=== PATIENT | female | born 1960 | race Caucasian/White ===

== ENCOUNTER → 2023-04-10 11:57 | Outpatient (REF) | payer OTHER, SELFPAY | LOC: RCS 11:57 | PROVIDERS: ATTENDING PHYSICIAN Family Medicine | DX: Z13.6 Encounter for screening for cardiovascular disorders (principal) | CPT/HCPCS: 93005 ==

== ENCOUNTER 2023-04-12 22:51 | Inpatient (IN) | payer OTHER, SELFPAY ==
[2023-04-12 17:58] VITALS: BP 137/64
[2023-04-12 17:59] LABS: Glucose - Point of Care 194 mg/dl (70-99)
[2023-04-12 18:25] LABS: COVID-19 Antigen Negative (Negative)
[2023-04-12 19:00] VITALS: BP 155/87
[2023-04-12] MEDS: DUONEB 3 ML INH (20:04)
[2023-04-12 20:24] LABS: % Basophils 0.8 % (0-2); % Immature Granulocytes 2.2 % (0-0.5); % Lymphocytes 27.9 % (20.5-51.1); % Monocytes 7.9 % (1.7-9.3); % Neutrophils 33.2 % (42.2-75.2); Absolute Basophils 0.1 10^3/uL (0-0.2); Absolute Eosinophils 2.5 10^3/uL (0-0.7); Absolute Immature Granulocytes 0.2 10^3/uL (0-0.05); Absolute Lymphocytes 2.5 10^3/uL (1.2-3.4); Absolute Monocytes 0.7 10^3/uL (0.1-0.6); Hemoglobin 11.8 g/dL (12.0-16.0); Mean Corp Hgb Conc. 34.7 g/dL (33.0-37.0); Mean Corpuscular Hgb 38.8 pg (27.0-31.0); Mean Corpuscular Volume 111.8 fL (81.0-99.0); Nucleated Red Blood Cells % 0 %; Platelet Count 214 10^3/uL (130-400); Red Blood Cell Count 3.04 10^6/uL (4.20-5.40); Red Cell Dist. Width 13.4 % (11.5-14.5); White Blood Cell Count 8.9 10^3/uL (4.8-10.8)
[2023-04-12 20:36] LABS: Lactic Acid 1.4 mmol/L (0.7-2.0)
[2023-04-12 20:37] LABS: ALT (SGPT) 26 U/L (0-35); AST (SGOT) 29 U/L (14-36); Albumin 3.5 g/dl (3.5-5.0); Alkaline Phosphatase 65 U/L (38-126); Blood Urea Nitrogen 39 mg/dl (7-17); Calcium 9.5 mg/dl (8.4-10.2); Chloride 89 mmol/L (98-107); Glucose 177 mg/dl (70-99); Sodium 138 mmol/L (135-145); Total Bilirubin 0.4 mg/dl (0.2-1.3); Total Protein 6.1 g/dl (6.3-8.2); eGFR > 60.00
[2023-04-12 20:46] LABS: Carbon Dioxide 37 mmol/L (22-30)
[2023-04-12 20:47] LABS: NT-proBNP 288 pg/ml; Troponin I < 0.012 ng/ml
[2023-04-12 21:05] VITALS: BP 156/64
[2023-04-12 21:07] LABS: TSH Reflex To Free T4 2.24 uIU/ml (0.47-4.68)
[2023-04-12 21:32] VITALS: BMI 31.9
--- NOTE | 2023-04-12 21:33 | ED.GENMED ---
History of Present Illness
General
Chief Complaint: Cold/Flu/URI Symptoms
Source: patient and records
Exam Limitations: other (Baseline mental health)
Time Seen by Provider: 04/12/23 19:20
Nursing documentation reviewed up to this point in time: agreed with
Travel History
Have you had any contact with someone who has COVID-19?: No
Do you have any symptoms of coronavirus? Fever > 100 degrees, chills, cough, shortness of breath, sore throat, loss of taste or smell, muscle aches, or headache?: No
History of Present Illness
History of Present Illness:
Patient is a 63-year-old female presents to the emergency department complaining of cough, fever and shortness of breath for approximately the last week. Patient denies any GI or symptoms. Patient has noted exertional dyspnea along with dyspnea
at rest. Patient denies any orthopnea. Patient denies any leg pain or swelling. Patient wears O2 chronically but was noted to be short of breath with her normal 2 L of oxygen running at about 90%.
Past History
Past History
ED Past Medical History: Asthma, COPD, HTN, Hypercholesterolemia, IDDM, Hypothyroidism, Psychiatric (Schizoaffective disorder, borderline personality disorder, major depressive disorder, suicide attempt) and Other (SBO,)
ED Past Surgical History: Appendectomy and Cholecystectomy
Social History
Tobacco: Non-smoker
Alcohol: None
Drug: None
Personal: Single
Living: other (snf)
Employment: Not employed
Family History
Family History: Unable to obtain
Review of Systems
Review of Systems
All Other Systems: ROS reviewed and negative except as documented in HPI and ROS
Constitutional: Reports fever, fatigue and chills
EENT: Reports no symptoms
Respiratory: Reports cough and trouble breathing
Cardiac: Reports no symptoms
ABD/GI: Reports no symptoms
: Reports no symptoms
Musculoskeletal: Reports no symptoms
Skin: Reports no symptoms
Neurological: Reports no symptoms
Hematologic/Lymphatic: Reports no symptoms
Phy Exam
Physical Exam
Physical Exam:
Physical Exam
General: mild distress, alert and appropriate, well nourished, well hydrated, poor personal hygiene and disheveled
HENT: Normocephalic, supple with no lymphadenopathy, no thyromegaly
Eyes: Clear sclera, conjuctiva without injection
Heart: Regular rhythm and rate. No S3, S4. No murmur. No NVD
Lungs: mild respiratory distress, no stridor, lung sounds are clear on the left but rhonchi in the right base both anteriorly and posteriorly
Abdomen: Soft, nontender, no organomegaly, no CVA tenderness, BS good
Neuro: Alert and oriented x 3, CN II - XII intact, no motor focality, no cerebellar dysfunction
Skin: no rash
Psychiatric: well kept. interactive and cooperative
Extremities: No cyanosis, tenderness. Trace pretibial nonpitting edema bilaterally
Course
Orders/Labs/Results
Orders:
Orders
04/12/23 18:03
COVID-19 Antigen Urgent
Source: Nasal Swab
INF RAPID [Influenza A+B Rapid Molecular] Urgent
BERNA[place] Source: Nasal Swab
Specimen Description:
04/12/23 19:32
Electrocardiogram (*1) Urgent
Reason for Study: Shortness of Breath
EKG- Treatment ONCE
Ipratropium/Albuterol Sulfate [Duoneb] 3 ml INH R NOW ONE
CR Chest - 2 Views Urgent
Comment:
Reason For Exam: fever sob
04/12/23 20:03
Complete Blood Count/With Diff Urgent
Comprehensive Metabolic Panel Urgent
Lactic Acid Q4H
Comment: CANCEL 2nd LACTIC ACID IF 1st LACTIC ACID IS LESS THAN 2
NT-proBNP Urgent
TSH Reflex To Free T4 Urgent
Troponin I Urgent
Blood Culture Q30M
BER[place] Source: Blood/Venous
Specimen Description:
Blood Culture Q30M
[place] Source: Blood/Venous
Specimen Description:
04/12/23 21:32
LevoFLOXacin 750 mg IVPB NOW LevoFLOXacin 750 MG/150 ML [Levaquin] 750 mg in 150 ml IV NOW
04/12/23 23:45
Lactic Acid Q4H
Comment: CANCEL 2nd LACTIC ACID IF 1st LACTIC ACID IS LESS THAN 2
Abnormal Lab Results
04/12/23 04/12/23
17:57 20:03
RBC 3.04 L 10^6/uL
(4.20-5.40)
Hgb 11.8 L g/dL
(12.0-16.0)
Hct 34.0 L %
(37.0-47.0)
MCV 111.8 H fL
(81.0-99.0)
MCH 38.8 H pg
(27.0-31.0)
Abs Immat Gran (auto) 0.2 H 10^3/uL
(0-0.05)
Absolute Monos (auto) 0.7 H 10^3/uL
(0.1-0.6)
Absolute Eos (auto) 2.5 H 10^3/uL
(0-0.7)
Immature Gran % 2.2 H %
(0-0.5)
Neutrophils % 33.2 L %
(42.2-75.2)
Eosinophils % 28.0 H %
(0-6)
Chloride 89 L mmol/L
(98-107)
Carbon Dioxide 37 H mmol/L
(22-30)
BUN 39 H mg/dl
(7-17)
Glucose 177 H mg/dl
(70-99)
Total Protein 6.1 L g/dl
(6.3-8.2)
POC Glucose 194 H mg/dl
(70-99)
04/12/23 20:03
04/12/23 20:03
Vital Signs
Initial and Last Documented VS:
Initial Vital Signs
Temp Pulse Resp BP Pulse Ox
98.4 F 99 20 137/64 95
04/12/23 17:58 04/12/23 17:58 04/12/23 17:58 04/12/23 17:58 04/12/23 17:58
Last Documented Vital Signs
Temp Pulse Resp BP Pulse Ox
98.4 F 98 20 156/64 93
04/12/23 17:58 04/12/23 19:15 04/12/23 17:58 04/12/23 21:05 04/12/23 21:30
*Radiology
Radiology exam reviewed: radiology read reviewed (Right-sided pneumonia)
*Pulse Oximetry
Patient hypoxic: yes
*EKG
Interpreted by ED Provider?: Yes
EKG Intrepretation Date: 04/12/23
EKG Intrepretation Time: 21:37
Interpretation: abnormal
Comparison EKG: no changes
Heart Rate: 96
Rate: normal
Rhythm: sinus
[place]: normal axis
Interval: normal interval
QRS Pattern: normal QRS
Ischemia: non-specific ST changes
*Institutional Commodity Analyst Interpretation
Rate: normal
Interpretation: normal
Heart Rate: 96
Rhythm: sinus
*Critical Care Note
Total Time (30-74mins, 75-104mins- exclusive of procedures): Not Applicable
Update Note
Update Note:
Patient appears to have pneumonia which is consistent with her clinical picture. Given the patient is O2 dependent and her oxygen dropped while on oxygen will admit the patient started on intravenous antibiotics.
ED Attending Note
-
Portions of this chart may have been created with voice recognition software.� Occasional wrong word or��sound alike� substitutions may have occurred due to the inherent limitations of voice recognition software.
Discharge Plan
Departure
Patient Disposition: Admit
Date of Disposition: 04/12/23
Time of Disposition: 21:38
Admit to: Telemetry
Admit to doctor: Hospitalist
Presentation/result/management discussed w/ accepting MD/DO: Hospitalist
Patient with high blood pressure during this ER visit?: No
Condition: Fair
Covid-19: Not Applicable
Discharge Problem:
Pneumonia
Prescriptions:
No Action
albuterol sulfate 2.5 MG/3 ML solution for nebulization
2.5 mg inhalation R Q6HPRN PRN (Reason: wheezing)
levothyroxine 75 MCG tablet
75 mcg PO DAILY
famotidine 20 MG tablet
20 mg PO BID
metformin 1,000 MG tablet
1,000 mg PO BID
allopurinol 300 MG tablet
300 mg PO DAILY
cholecalciferol (vitamin D3) 1,000 UNITS tablet
1,000 units PO DAILY
docusate sodium 100 MG capsule
100 mg PO BID 0RF
trazodone 100 MG tablet
100 mg PO HS
ondansetron HCl 4 MG tablet
4 mg PO Q8H PRN (Reason: nausea)
albuterol sulfate [Ventolin HFA] 90 MCG/PUFF HFA aerosol inhaler
1 puff inhalation R Q6HPRN PRN (Reason: sob)
acetaminophen 325 MG tablet
650 mg PO Q6H PRN (Reason: mild pain)
olanzapine [Zyprexa] 10 mg Tablet
10 mg PO DAILY
melatonin 3 mg Tablet
6 mg PO HS
valproic acid 250 mg Capsule
500 mg PO DAILY
pravastatin 80 mg Tablet
80 mg PO DAILY
epinephrine 0.3 mg/0.3 mL Auto-Injector
0.3 mg IM ONCE PRN (Reason: anaphylaxsis)
fluticasone propion-salmeterol [Advair Diskus] 100-50 mcg/dose Blister With Device
1 inh INHALATION R BID
Apidra SoloStar U-100 Insulin 100 unit/mL Insulin Pen
0 sliding scale dose SC QID PRN (Reason: blood sugar)
Patient Comments:
02/06/2022: bs 150-200=2; 200-250=4; 250-300=6; 300-350=8; bs 350 and over call nbfp
Farxiga 10 mg Tablet
10 mg PO DAILY
glucagon HCl [Glucagon (HCl) Emergency Kit] 1 mg Recon Soln
1 mg SC DAILYPRN PRN (Reason: hypoglycemia)
bisacodyl [OneLAX Bisacodyl] 10 MG suppository
10 mg [place] DAILY PRN (Reason: constipation)
lorazepam 1 MG tablet
1 mg PO Q6H PRN (Reason: anxiety)
polyethylene glycol 3350 [Miralax] 17 gram powder in packet
17 g PO BID 5 Days Qty: 1 0RF
clonazepam 1 mg Tablet
1.5 mg PO HS
valproic acid 250 mg Capsule
750 mg PO BID@1200,2000
fluoxetine [Prozac] 10 mg Capsule
30 mg PO DAILY
furosemide 40 MG tablet
40 mg PO DAILY
multivitamin with iron [One A Day W/Iron] Tablet
1 tab PO DAILY
furosemide [Lasix] 20 mg tablet
20 mg PO DAILY Qty: 7 0RF
Referrals:
Shimon Cleary DO [Family Provider] -
Interventions
Interventions:
ED- Fall Risk Assessment Last Done: 04/12/23 21:28
ED- Pulmonary Assessment Last Done: 04/12/23 21:28
[2023-04-12] MEDS: LEVAQUIN 150 IV (21:57)
[2023-04-12 22:00] VITALS: BP 144/71
--- NOTE | 2023-04-12 22:02 | HPS.HSE ---
Family Physician
-
Family Physician: Shimon Cleary
Chief Complaint
-
cough, fever and chills
History of Present Illness
63M HX home O2 depedent COPD pw cough, fever and chills for approximately the last week.
Reports Moss and dyspnea at rest. No orthopnea.
Patient denies any leg pain or swelling.
Medical History
Past Medical History
Past Medical History: Reports Other
Additional Past Medical History:
Asthma, COPD, HTN, Hypercholesterolemia, IDDM, Hypothyroidism, Psychiatric (Schizoaffective disorder, borderline personality disorder, major depressive disorder, suicide attempt) and Other (SBO,)
Past Surgical History: Reports Appendectomy and Cholecystectomy
Social History
Tobacco: Non-smoker
Alcohol: None
Personal: Single
Living: Other (prison )
Family History
Family History: Not pertinent
Allergies / Home Medications
Allergies reflects when Allergies were last updated in [employer].
Home Medications with original date entered in [employer]
Allergy/Medication List:
Allergies
Allergy/AdvReac Type Severity Reaction Status Date / Time
bee venom protein (honey bee) Allergy Unknown Verified 04/12/23 17:57
benzonatate Allergy Rash Verified 04/12/23 17:57
[From Tessalon Perles]
codeine Allergy Unknown Verified 04/12/23 17:57
egg Allergy Unknown Verified 04/12/23 17:57
fluphenazine [From Prolixin] Allergy Unknown Verified 04/12/23 17:57
haloperidol [From Haldol] Allergy Unknown Verified 04/12/23 17:57
hydroxychloroquine Allergy Unknown Verified 04/12/23 17:57
[From Plaquenil]
Influenza Virus Vaccines Allergy Unknown Verified 04/12/23 17:57
iodine Allergy Unknown Verified 04/12/23 17:57
Penicillins Allergy unknown; Verified 04/12/23 17:57
tolerated
cephalexin
June 2020
shellfish derived Allergy Unknown Verified 04/12/23 17:57
Sulfa (Sulfonamide Allergy Unknown Verified 04/12/23 17:57
Antibiotics)
tomato Allergy Unknown Verified 04/12/23 17:57
Home Medications
albuterol sulfate 2.5 mg/3 mL (0.083 %) solution for nebulization 2.5 mg inhalation R Q6HPRN PRN wheezing 06/08/20
allopurinol 300 mg tablet 300 mg PO DAILY Gout 06/08/20
cholecalciferol (vitamin D3) 25 mcg (1,000 unit) tablet 1,000 units PO DAILY Supplement 06/08/20
famotidine 20 mg tablet 20 mg PO BID Gastrointestinal issue 06/08/20
levothyroxine 75 mcg tablet 75 mcg PO DAILY Thyroid 06/08/20
metformin 1,000 mg tablet 1,000 mg PO BID Diabetes 06/08/20
docusate sodium 100 mg capsule 100 mg PO BID 06/15/20
trazodone 100 mg tablet 100 mg PO HS Sleep 01/19/21
ondansetron HCl 4 mg tablet 4 mg PO Q8H PRN nausea 05/04/21
acetaminophen 325 mg tablet 650 mg PO Q6H PRN mild pain 05/28/21
albuterol sulfate 90 mcg/actuation aerosol inhaler (Ventolin HFA) 1 puff inhalation R Q6HPRN PRN sob 05/28/21
bisacodyl 10 mg rectal suppository (OneLAX Bisacodyl) 10 mg [place] DAILY PRN constipation 09/13/21
dapagliflozin propanediol 10 mg tablet (Farxiga) 10 mg PO DAILY Diabetes 09/13/21
epinephrine 0.3 mg/0.3 mL injection, auto-injector 0.3 mg IM ONCE PRN anaphylaxsis 09/13/21
fluticasone 100 mcg-salmeterol 50 mcg/dose blistr powdr for inhalation (Advair Diskus) 1 inh inhalation R BID Lung/breathing issues 09/13/21
glucagon HCl 1 mg solution for injection (Glucagon (HCl) Emergency Kit) 1 mg SC DAILYPRN PRN hypoglycemia 09/13/21
insulin glulisine U-100 100 unit/mL subcutaneous pen (Apidra SoloStar U-100 Insulin) 0 sliding scale dose SC QID PRN blood sugar 09/13/21
lorazepam 1 mg tablet 1 mg PO Q6H PRN anxiety 09/13/21
melatonin 3 mg tablet 6 mg PO HS Sleep 09/13/21
olanzapine 10 mg tablet (Zyprexa) 10 mg PO DAILY Mental Health/Anxiety 09/13/21
pravastatin 80 mg tablet 80 mg PO DAILY High cholesterol 09/13/21
valproic acid 250 mg capsule 500 mg PO DAILY Mental Health/Anxiety 09/13/21
polyethylene glycol 3350 17 gram oral powder packet (Miralax) 17 g PO BID 5 days #1 ea 10/05/21
clonazepam 1 mg tablet 1.5 mg PO HS Mental Health/Anxiety 12/15/21
fluoxetine 10 mg capsule (Prozac) 30 mg PO DAILY Depression 02/07/22
valproic acid 250 mg capsule 750 mg PO BID@1200,2000 Seizures 02/07/22
furosemide 40 mg tablet 40 mg PO DAILY Fluid retention/Swelling 02/08/22
furosemide 20 mg tablet (Lasix) 20 mg PO DAILY #7 tabs 07/08/22
multivitamin with iron 1 tab PO DAILY 07/08/22
Review of Systems
-
Constitutional: Reports No Symptoms
EENT: Reports No Symptoms
Respiratory: Reports See HPI
Cardiac: Reports No Symptoms
Abdomen/GI: Reports No Symptoms
: Reports No Symptoms
Musculoskeletal: Reports No Symptoms
Skin: Reports No Symptoms
Neurological: Reports No Symptoms
Endocrine: Reports No Symptoms
Hematologic/Lymphatic: Reports No Symptoms
Psych: Reports No Symptoms
Physical Exam
Vital Signs
Vital Signs
Temp Pulse Resp BP Pulse Ox
98.4 F 98 20 156/64 93
04/12/23 17:58 04/12/23 19:15 04/12/23 17:58 04/12/23 21:05 04/12/23 21:30
Physical Exam
General: Other (see below )
Laboratory Results
-
04/12/23 20:03
04/12/23 20:03
Laboratory Results
Lactic Acid 1.4 mmol/L (0.7-2.0) 04/12/23 20:03
Total Bilirubin 0.4 mg/dl (0.2-1.3) 04/12/23 20:03
AST 29 U/L (14-36) 04/12/23 20:03
ALT 26 U/L (0-35) 04/12/23 20:03
Alkaline Phosphatase 65 U/L (38-126) 04/12/23 20:03
Troponin I < 0.012 ng/ml 04/12/23 20:03
Data Reviewed
-
Diagnostic Radiology: Report Reviewed by me
Lab Data: Labs Reviewed by me
Old Records: Reviewed
Impression/Plan
-
Reviewed VS: Afebrile POx mid 90s on 2 L O2 RR 20 otherwise unremarkable
PE
Gen: mild distress, disheveled, not toxic looking
HEENT: anicteric
Neck: supple
Lungs: mild respiratory distress, clear on the left but rhonchi in the right base both anteriorly and posteriorly
Cor: RRR S1 S2
Abdomen: benign exam
REGULATOR TESTER: AAO3 NFND
MS: b/l trace ext edema
Psych: interactive and cooperative
Data
nl WCC
Hgb 11.8 -stable at base line 11.8
nl Na
nl K
Cl 89
CO2 37 - baseline 36s
nl Cr nl GFR
BG 177
NEG TPNI
pBNP 288
EKG report
QTc Int : 459 ms
NORMAL SINUS RHYTHM
NONSPECIFIC ST ABNORMALITY
ABNORMAL QRS-T ANGLE, CONSIDER PRIMARY T WAVE ABNORMALITY
ABNORMAL ECG
WHEN COMPARED WITH ECG OF 10-APR-2023 12:13,
NO SIGNIFICANT CHANGE WAS FOUND
TSH 2.25
NEG Covid ag
Pending procalcitonin
LA 1.2
BC x sent
04/12/23 CXR : Mild right basilar atelectasis and/or pneumonia.
Last hospitalist admission : 02/06/22 - 02/13/22
DISCHARGE DIAGNOSIS:
1. Pneumonia.
2. Acute on chronic bronchitis.
3. Chronic obstructive pulmonary disease.
4. Schizoaffective disorder.
5. Diabetes.
6. Hypothyroidism.
7. Chronic constipation.
8. Gout.
9. Pulmonary hypertension.
10.Hyperlipidemia.
ASSESSMENT & PLAN
Pending Rx reconciliation
HX developmental delay
Gp Home resident
PNA at Rt basilar - presumed CAP
Acute on chronic Hypoxic RI
HX Home O2 dependent COPD
Suspect chr CO2 retainer - chr hypercarbia noted
HX PCN allergy
- check procalcitonin
- Agree with IV LVQ - close monitoring of QTc in AM ( Current QTc 459)
- cont. CIRCULATION LIBRARIAN INH
- ABG with any AMS due to HX chronic CO2 retention
- BCx sent
- f/u T, WCC
HX CIELO
Obesity secondary to excess calories
Schizoaffective disorder
- cont. fluoxetine, olanzapine, Depakote after reconciliation
- cont clonazepam, Ativan, trazodone after reconciliation but hold for excessive sedation
Essential hypertension
- on Lasix
T2DM
- cont Farxiga after reconciliation
- Held metformin
- ISS low
Hypothyroidism
- cont levothyroxine after reconciliation
Chronic constipation
-cont e stool softeners
Gout
- cont allopurinol after reconciliation
Hypercholesterolemia
-Continue statin after reconciliation
DVT Px: LMWH
Code: Full
IMU
[2023-04-12 23:00] VITALS: BP 148/80
[2023-04-13] VITALS (15 sets, daily range): BP systolic 119–174; BP diastolic 68–91; PULSE 94; O2SAT 94; BMI 40.3; BMI 39.5; BMI 40.5
--- NOTE | 2023-04-13 | PTCARENOTE ---
Pt admitted to IMU from ED. AAO3. Speech garbled d/t not having dentures with her. Developmentally delayed. Able to answer questions appropriately. Denies pain or discomfort. VSS: 149/84, 98.1, 86, 15 POX 94% on 3L NC. SR/PVCs on CM. Lung sounds
very diminished, EW noted. MORALES, occasional moist senior label specialist cough. Pt came to floor with her own O2 tank brought in by person from correction for when pt is discharged. Pt incontinent large amount urine, strong odor. Purewick placed. Rest of assessment as
documented. Oriented to room and surroundings. Call azevedo within reach and using. Bed alarm on and working. Will continue to monitor.
[2023-04-13 05:57] LABS: Hematocrit 32.8 % (37.0-47.0); Hemoglobin 11.3 g/dL (12.0-16.0); Mean Corp Hgb Conc. 34.5 g/dL (33.0-37.0); Mean Corpuscular Hgb 38.2 pg (27.0-31.0); Mean Corpuscular Volume 110.8 fL (81.0-99.0); Mean Platelet Volume 9.4 fL (7.4-10.4); Platelet Count 204 10^3/uL (130-400); Red Blood Cell Count 2.96 10^6/uL (4.20-5.40); Red Cell Dist. Width 13.5 % (11.5-14.5); White Blood Cell Count 9.2 10^3/uL (4.8-10.8)
[2023-04-13 06:11] LABS: ALT (SGPT) 23 U/L (0-35); AST (SGOT) 29 U/L (14-36); Albumin 3.2 g/dl (3.5-5.0); Alkaline Phosphatase 56 U/L (38-126); Blood Urea Nitrogen 35 mg/dl (7-17); Calcium 9.2 mg/dl (8.4-10.2); Chloride 95 mmol/L (98-107); Estimated Creatinine Clearance 71 ml/min; Glucose 120 mg/dl (70-99); Potassium 4.2 mmol/L (3.5-5.1); Sodium 140 mmol/L (135-145); Total Bilirubin 0.5 mg/dl (0.2-1.3); Total Protein 5.6 g/dl (6.3-8.2); eGFR > 60.00
[2023-04-13 06:20] LABS: Carbon Dioxide 38 mmol/L (22-30)
[2023-04-13 06:27] LABS: Procalcitonin < 0.05 ng/ml (0.0-0.25)
[2023-04-13] MEDS: DUONEB 3 ML INH ×4 (07:41→19:15)
[2023-04-13] MEDS: SYNTHROID 75 MCG PO (09:19)
[2023-04-13] MEDS: ZETIA 10 MG PO (10:23)
[2023-04-13] MEDS: LANTUS 0.179999999999999993 UNITS SC (10:23)
[2023-04-13] MEDS: LASIX 40 MG PO (10:23)
[2023-04-13] MEDS: VALTREX 500 MG PO ×2 (10:23→19:50)
[2023-04-13] MEDS: PROZAC 20 MG PO (10:24)
[2023-04-13] MEDS: ZYPREXA 10 MG PO (10:24)
[2023-04-13] MEDS: PRAVACHOL 80 MG PO (10:24)
[2023-04-13] MEDS: FARXIGA 10 MG PO (10:25)
[2023-04-13 12:14] LABS: Glucose - Point of Care 218 mg/dl (70-99)
[2023-04-13] MEDS: NOVOLOG FLEXPEN-LOW RESISTANCE 2 UNITS SC ×2 (12:38→17:14)
[2023-04-13] MEDS: DEPAKENE 750 MG PO ×2 (12:39→19:50)
--- NOTE | 2023-04-13 13:26 | W.PN.HOSP.TC ---
Today's Communication/Plan
-
abx
f/u cultures
wean o2
speech eval
incentive sandra
Assessment / Plan
Assessment / Plan
Gen: mild distress, disheveled, not toxic looking
HEENT: anicteric
Neck: supple
Lungs: mild respiratory distress, clear on the left but rhonchi in the right base both anteriorly and posteriorly
Cor: RRR S1 S2
Abdomen: benign exam
SOCK DRIER: AAO3 NFND
MS: b/l trace ext edema
Psych: interactive and cooperative
HX developmental delay
Gp Home resident
#Sepsis
#PNA at Rt basilar - presumed CAP
#Acute on chronic Hypoxic respiratory failure
#HX Home O2 dependent� (2L)
#COPD
- Cont iv abx
-Duonebs
-wean o2
-F/u Blood cultures
HX CIELO
Obesity secondary to excess calories
Schizoaffective disorder
- cont.� fluoxetine, olanzapine, Depakote� after� reconciliation
- cont� clonazepam, Ativan, trazodone� after� reconciliation but hold for excessive sedation
Essential hypertension
- on Lasix
T2DM
- cont Farxiga after� reconciliation
- Held� metformin
- ISS low
Hypothyroidism
- cont� levothyroxine after� reconciliation
Chronic constipation
-cont e stool softeners
Gout
- cont allopurinol after� reconciliation
Hypercholesterolemia
-Continue statin after� reconciliation
DVT Px: LMWH
Anticipated Discharge: > 48 hours
Subjective/Interval History
-
Date of Service: April 13, 2023
no acute events overnight
Objective Data
-
Labs:
Laboratory Results
04/13/23
05:00
WBC 9.2
Hgb 11.3 L
Hct 32.8 L
Plt Count 204
Sodium 140
Potassium 4.2
Chloride 95 L
Carbon Dioxide 38 H
BUN 35 H
Creatinine 0.8
Glucose 120 H
Calcium 9.2
Total Bilirubin 0.5
AST 29
ALT 23
Alkaline Phosphatase 56
Vital Signs:
Vital Signs
Temp Pulse Resp BP Pulse Ox
98.3 F 92 14 138/78 94
04/13/23 07:38 04/13/23 11:13 04/13/23 11:13 04/13/23 10:00 04/13/23 12:37
I&O
04/12/23 04/13/23 04/14/23
06:59 06:59 06:59
Intake Total 1300 / 1300
Output Total 200 / 200 1300 / 1300
Balance -200 / -200 0 / 0
Review of Systems
-
History Source: Patient
All other systems: Not reviewed unless documented
Physical Exam
-
General: Obese
HEENT: Normocephalic
Respiratory: Wheezes and Rhonchi
Cardiac: Regular Rhythm
GI: Soft
Musculoskeletal: Edema, Right Lower Extrem and Edema, Left Lower Extrem
Neuro: Awake
Psych: Anxious
Data Reviewed
-
Diagnostic Radiology: Image personally visualized and interpreted and Report Reviewed by me
Labs: Labs Reviewed by me
--- NOTE | 2023-04-13 14:14 | CM ---
Pt resides at [facility] a 16 resident [facility]
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
Pt has no previous SNF/VN hx however does have a w/c & home O2
Pt does have prescription coverage and rx's are filled through [facility] [phone].
Oxygen at home through [facility].
WHIT spoke to weekend staff at [facility]. Staff suggested CM to call Saturday to give update to Mirian Tavarez [employer]er and she will put Whit in touch with nurse for the [place].
PlAN: return to [facility].
--- NOTE | 2023-04-13 15:06 | PTCARENOTE ---
pt with unprovoked drop in pox to 83-84% on O2 2L after lunch. improved to 88% with deep breaths encouraged. increased oxygen to 4L nasal canula. pox improved to 93%. patient later assisted to chair with min assist x 2. pox maintained at 94%.
continuing to monitor
[2023-04-13 16:42] LABS: Glucose - Point of Care 200 mg/dl (70-99)
[2023-04-13] MEDS: LOVENOX 40 MG SC (17:29)
[2023-04-13] MEDS: LEVAQUIN 150 IV (21:25)
[2023-04-13] MEDS: FLUSH (NSS) 2 FLUSH IV (21:25)
[2023-04-13] MEDS: KLONOPIN 1.5 MG PO (21:25)
[2023-04-13 21:44] LABS: Glucose - Point of Care 197 mg/dl (70-99)
--- NOTE | 2023-04-13 21:55 | PTCARENOTE ---
Pt received at beginning of shift reclining in chair. AAOx3 slightly forgetful . VSS. Afebrile. SR/PVCs on CM. Continues on 4L NC POX 93%. Occasional moist carbide die maker cough. Very diminished B/L. Purewick draining clear yellow urine in canister. Hair
shampooed. Pt denies pain or discomfort. Rest of assessment as documented. Maintained on Q2hr turns. Call azevedo remains within reach. Will continue to monitor.
[2023-04-14] VITALS (11 sets, daily range): BP systolic 128–162; BP diastolic 72–83; BMI 39.5
[2023-04-14 06:35] LABS: Hematocrit 35.5 % (37.0-47.0); Hemoglobin 12.7 g/dL (12.0-16.0); Mean Corp Hgb Conc. 35.8 g/dL (33.0-37.0); Mean Corpuscular Hgb 40.1 pg (27.0-31.0); Mean Platelet Volume 9.4 fL (7.4-10.4); Platelet Count 227 10^3/uL (130-400); Red Blood Cell Count 3.17 10^6/uL (4.20-5.40); Red Cell Dist. Width 13.3 % (11.5-14.5); White Blood Cell Count 8.4 10^3/uL (4.8-10.8)
[2023-04-14 06:50] LABS: ALT (SGPT) 22 U/L (0-35); AST (SGOT) 24 U/L (14-36); Albumin 3.4 g/dl (3.5-5.0); Alkaline Phosphatase 60 U/L (38-126); Blood Urea Nitrogen 38 mg/dl (7-17); Calcium 9.6 mg/dl (8.4-10.2); Carbon Dioxide 38 mmol/L (22-30); Chloride 95 mmol/L (98-107); Estimated Creatinine Clearance 62 ml/min; Glucose 162 mg/dl (70-99); Magnesium 2.2 mg/dl (1.6-2.3); Phosphorus 5.1 mg/dl (2.5-4.5); Potassium 4.2 mmol/L (3.5-5.1); Sodium 139 mmol/L (135-145); Total Bilirubin 0.6 mg/dl (0.2-1.3); eGFR > 60.00
[2023-04-14] MEDS: DUONEB 3 ML INH ×4 (07:30→20:36)
[2023-04-14 07:41] LABS: Glucose - Point of Care 160 mg/dl (70-99)
[2023-04-14] MEDS: SYNTHROID 75 MCG PO (08:46)
[2023-04-14] MEDS: FARXIGA 10 MG PO (08:46)
[2023-04-14] MEDS: ZETIA 10 MG PO (08:46)
[2023-04-14] MEDS: VALTREX 500 MG PO ×2 (08:47→21:05)
[2023-04-14] MEDS: ZYPREXA 10 MG PO (08:47)
[2023-04-14] MEDS: PRAVACHOL 80 MG PO (08:47)
[2023-04-14] MEDS: PROZAC 20 MG PO (08:47)
[2023-04-14] MEDS: LASIX 40 MG PO (08:48)
[2023-04-14] MEDS: NOVOLOG FLEXPEN-LOW RESISTANCE 1 UNITS SC ×2 (08:48→17:06)
[2023-04-14] MEDS: LANTUS 0.179999999999999993 UNITS SC (08:51)
--- NOTE | 2023-04-14 10:40 | PTCARENOTE ---
Pt had a burst of ST with HR going to 140s. was in room during event and aware.
[2023-04-14 11:34] LABS: Glucose - Point of Care 244 mg/dl (70-99)
[2023-04-14] MEDS: NOVOLOG FLEXPEN-LOW RESISTANCE 2 UNITS SC (12:52)
[2023-04-14] MEDS: DEPAKENE 750 MG PO ×2 (12:52→21:06)
--- NOTE | 2023-04-14 14:24 | W.PN.HOSP.TC ---
Today's Communication/Plan
-
cont abx
wean o2
duonebs
Assessment / Plan
Assessment / Plan
Gen: mild distress, disheveled, not toxic looking
HEENT: anicteric
Neck: supple
Lungs: mild respiratory distress, clear on the left but rhonchi in the right base both anteriorly and posteriorly
Cor: RRR S1 S2
Abdomen: benign exam
INSURANCE COMPLIANCE ANALYST: AAO3 NFND
MS: b/l trace ext edema
Psych: interactive and cooperative
HX developmental delay
Gp Home resident
#Sepsis
#PNA at Rt basilar - presumed CAP
#Acute on chronic Hypoxic respiratory failure
#HX Home O2 dependent� (2L)
#COPD
- Cont iv abx
-Duonebs
-wean o2
-F/u Blood cultures
-speech eval
#Ear pain
-can consult ENT Tomorrow AM
-no obvious discharge
HX CIELO
Obesity secondary to excess calories
Schizoaffective disorder
- cont.� fluoxetine, olanzapine, Depakote� after� reconciliation
- cont� clonazepam, Ativan, trazodone� after� reconciliation but hold for excessive sedation
Essential hypertension
- on Lasix
T2DM
- cont Farxiga after� reconciliation
- Held� metformin
- ISS low
Hypothyroidism
- cont� levothyroxine after� reconciliation
Chronic constipation
-cont e stool softeners
Gout
- cont allopurinol after� reconciliation
Hypercholesterolemia
-Continue statin after� reconciliation
DVT Px: LMWH
Anticipated Discharge: Within 24 hours
Subjective/Interval History
-
Date of Service: April 14, 2023
Weaned back to 2 L, still wheezing
Objective Data
-
Labs:
Laboratory Results
04/14/23
06:14
WBC 8.4
Hgb 12.7
Hct 35.5 L
Plt Count 227
Sodium 139
Potassium 4.2
Chloride 95 L
Carbon Dioxide 38 H
BUN 38 H
Creatinine 0.9
Glucose 162 H
Calcium 9.6
Total Bilirubin 0.6
AST 24
ALT 22
Alkaline Phosphatase 60
Vital Signs:
Vital Signs
Temp Pulse Resp BP Pulse Ox
98.6 F 92 18 161/78 93
04/14/23 11:11 04/14/23 11:24 04/14/23 11:24 04/14/23 10:22 04/14/23 11:24
I&O
04/13/23 04/14/23 04/15/23
06:59 06:59 06:59
Intake Total 1929 / 1929
Output Total 200 / 200 2425 / 2425
Balance -200 / -200 -495 / -495
Review of Systems
-
History Source: Patient
All other systems: Not reviewed unless documented
Physical Exam
-
General: Obese
HEENT: Normocephalic
Respiratory: Wheezes and Rhonchi
Cardiac: Regular Rhythm
GI: Soft
Musculoskeletal: Edema, Right Lower Extrem and Edema, Left Lower Extrem
Neuro: Awake
Psych: Anxious
Data Reviewed
-
Diagnostic Radiology: Image personally visualized and interpreted and Report Reviewed by me
Labs: Labs Reviewed by me
[2023-04-14 16:23] LABS: Glucose - Point of Care 188 mg/dl (70-99)
[2023-04-14] MEDS: LOVENOX 40 MG SC (18:02)
[2023-04-14] MEDS: KLONOPIN 1.5 MG PO (21:05)
[2023-04-14 22:07] LABS: Glucose - Point of Care 144 mg/dl (70-99)
[2023-04-14] MEDS: LEVAQUIN 150 IV (23:25)
[2023-04-15] VITALS (15 sets, daily range): BP systolic 103–175; BP diastolic 46–94; PULSE 80–108; O2SAT 93; BMI 38.8
--- NOTE | 2023-04-15 04:46 | PTCARENOTE ---
pt now requires 6 liters to maintain sat of 93%- no change in lung sounds- no distress-
[2023-04-15] MEDS: SYNTHROID 75 MCG PO (04:53)
[2023-04-15 05:45] LABS: Hemoglobin 12.3 g/dL (12.0-16.0); Mean Corp Hgb Conc. 33.2 g/dL (33.0-37.0); Mean Corpuscular Hgb 37.7 pg (27.0-31.0); Mean Corpuscular Volume 113.5 fL (81.0-99.0); Mean Platelet Volume 9.1 fL (7.4-10.4); Platelet Count 222 10^3/uL (130-400); Red Blood Cell Count 3.26 10^6/uL (4.20-5.40); Red Cell Dist. Width 13.2 % (11.5-14.5); White Blood Cell Count 8.8 10^3/uL (4.8-10.8)
[2023-04-15 06:11] LABS: Blood Urea Nitrogen 39 mg/dl (7-17); Calcium 8.9 mg/dl (8.4-10.2); Carbon Dioxide 38 mmol/L (22-30); Chloride 95 mmol/L (98-107); Estimated Creatinine Clearance 55 ml/min; Glucose 149 mg/dl (70-99); Potassium 3.9 mmol/L (3.5-5.1); Sodium 137 mmol/L (135-145); eGFR > 60.00
[2023-04-15] MEDS: DUONEB 3 ML INH ×4 (07:13→20:41)
[2023-04-15 08:08] LABS: Glucose - Point of Care 165 mg/dl (70-99)
--- NOTE | 2023-04-15 08:58 | W.PN.HOSP.TC ---
Today's Communication/Plan
-
see A/P
Assessment / Plan
Assessment / Plan
A/P:
# Sepsis POA due to R basilar CAP
# Acute on chronic Hypoxic respiratory failure
# HX Home O2 dependent� (2L)
# COPD
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
COVID/Flu negative, blood Cx neg
Check MRSA screen
Pt refused SPL eval , reattempt if able
Cont Levaquin
Duonebs
# BL inner Ear pain
no obvious discharge
consult ENT
# HX CIELO
# Obesity secondary to excess calories
# Schizoaffective disorder
# HX developmental delay, senior care resident
cont ELECTRICAL TECH/PROJECT MANAGER fluoxetine, olanzapine, Depakote�
cont ELECTRICAL TECH/PROJECT MANAGER clonazepam, Ativan, trazodone�with holding parameter (for excessive sedation)
# Essential hypertension
on Lasix
# T2DM
ELECTRICAL TECH/PROJECT MANAGER on Farxiga
Hold metformin
ISS low
# Hypothyroidism
cont�levothyroxine
# Chronic constipation
cont stool softeners
# Gout
cont allopurinol
# Hypercholesterolemia
Continue statin
DVT Px: Lovenox SQ
DW RN
Anticipated Discharge: 24 - 48 hours
Subjective/Interval History
-
Date of Service: April 15, 2023
Objective Data
-
Labs:
Laboratory Results
04/15/23
04:41
WBC 8.8
Hgb 12.3
Hct 37.0
Plt Count 222
Sodium 137
Potassium 3.9
Chloride 95 L
Carbon Dioxide 38 H
BUN 39 H
Creatinine 1.0
Glucose 149 H
Calcium 8.9
Vital Signs:
Vital Signs
Temp Pulse Resp BP Pulse Ox
36.8 C 86 20 137/75 95
04/15/23 05:53 04/15/23 07:15 04/15/23 07:15 04/15/23 06:00 04/15/23 07:15
I&O
04/14/23 04/15/23 04/16/23
06:59 06:59 06:59
Intake Total 1929 / 1929 800 / 800
Output Total 2425 / 2425 1700 / 1700
Balance -495 / -495 -900 / -900
Review of Systems
-
EENT: Reports Other (BL ears pain)
Physical Exam
-
General: Comfortable, Conversant, Obese and Other (developmental delay)
HEENT: Normocephalic and Oxygen (5L NC)
Respiratory: Clear to Auscultation and Non Labored Respirations; Negative Accessory Resp Muscle Use
Cardiac: Regular Rhythm and S1/S2
GI: Soft
Neuro: Awake
Psych: Calm
Data Reviewed
-
Diagnostic Radiology: Report Reviewed by me
Labs: Labs Reviewed by me
--- NOTE | 2023-04-15 09:24 | CM ---
Patient who resides at [facility] with Hx developmental delay, Schizoaffective disorder with Dx Sepsis, PNA, Acute Hypoxic respiratory failure, COPD. O2 6L. Receiving IV Levaquin.
Spoke with Chester RN Nurse [facility] (ph [phone]); the patient's meds must be filled by [facility] in [place] and the request sent in the morning of d/c or the prior day- their ph [phone], fax [phone]. They have a transport
van and possibly can transport the patient home when medically ready. The patient was not receiving any VN at [facility].
Plan return to [facility] when medically ready.
[2023-04-15] MEDS: NOVOLOG FLEXPEN-LOW RESISTANCE 1 UNITS SC ×3 (09:26→16:54)
[2023-04-15] MEDS: LANTUS 0.179999999999999993 UNITS SC (09:31)
[2023-04-15] MEDS: ZETIA 10 MG PO (09:32)
[2023-04-15] MEDS: FARXIGA PO (09:32)
[2023-04-15] MEDS: PRAVACHOL PO (09:32)
[2023-04-15] MEDS: LASIX PO (09:33)
[2023-04-15] MEDS: PROZAC PO (09:33)
[2023-04-15] MEDS: ZYPREXA 10 MG PO (09:33)
[2023-04-15] MEDS: VALTREX PO (09:33)
--- NOTE | 2023-04-15 10:07 | PTCARENOTE ---
meds scanned pt refusing to take meds because she wants to go home. O2 down to 2l
--- NOTE | 2023-04-15 10:14 | PTCARENOTE ---
Pt toook off all monitors ansd refuses to put them back on she is agitated because she isnot going home today still refusing meds
[2023-04-15] MEDS: FARXIGA 10 MG PO (10:22)
[2023-04-15] MEDS: PROZAC 20 MG PO (10:23)
[2023-04-15] MEDS: PRAVACHOL 80 MG PO (10:23)
[2023-04-15] MEDS: LASIX 40 MG PO (10:23)
[2023-04-15] MEDS: VALTREX 500 MG PO ×2 (10:23→19:44)
--- NOTE | 2023-04-15 10:28 | PTCARENOTE ---
Pt cursing and yelling out, took monitors off and pulled IV out . After much encouragement monitors on and pt took meds. Iv team aware that IV needed
--- NOTE | 2023-04-15 11:09 | PTCARENOTE ---
Pt pharmacy [place] tried to change in summary unable
--- NOTE | 2023-04-15 11:31 | W.PN.ENT ---
Today's Communication
-
seen at bedside
Impression / Plan
-
Has TMJ from bruxism
heating pad should help
patient counselled to relax jaw
Subjective Data
-
Ssked to see patient for ear pain. Admitted for pneumonia
Objective Data
-
Vital Signs
Temp Pulse Resp BP Pulse Ox
98.6 F 100 23 175/94 92
04/15/23 11:28 04/15/23 10:00 04/15/23 10:00 04/15/23 10:00 04/15/23 10:38
Intake & Output
04/14/23 04/15/23 04/16/23
06:59 06:59 06:59
Intake:
Oral fluids 1780 / 1780 800 / 800
IV piggybacks 150 / 150
Output:
Urine, Voided 2425 / 2425 1700 / 1700
Other:
How many times incontinent 2
SATURATED amount urine
Lab Results
04/15/23 04:41
04/15/23 04:41
Calcium 8.9 mg/dl (8.4-10.2) 04/15/23 04:41
Phosphorus 5.1 mg/dl (2.5-4.5) H 04/14/23 06:14
Magnesium 2.2 mg/dl (1.6-2.3) 04/14/23 06:14
Total Bilirubin 0.6 mg/dl (0.2-1.3) 04/14/23 06:14
AST 24 U/L (14-36) 04/14/23 06:14
ALT 22 U/L (0-35) 04/14/23 06:14
Alkaline Phosphatase 60 U/L (38-126) 04/14/23 06:14
Physical Exam
-
ears normal without infection-no redness or drainage
peritemporomadibular joint tenderness
Data Reviewed
-
Radiology Results: Report Reviewed
--- NOTE | 2023-04-15 12:03 | CON.MD ---
Consultation - Medical
-
Chief complaint: Ear pain and plugged sensation
History of present illness: This patient is a 63-year-old woman with a history of schizoaffective disorder who presents with ear pain and a plugged sensation after being admitted for pneumonia. She had been doing quite a bit of coughing and noted
ear pain following a coughing episode. She has a history of hearing loss and wears hearing aids normally but is not currently wearing hearing aids. She has not noted a great change in her hearing. She states that she feels as if there is water in
the ears. She has not had similar problems in the past. She is otherwise stable and on nasal cannula oxygen. She is awake and alert at this point.
Past medical history:
Chronic illnesses: Gout, obesity, diabetes, borderline personality disorder, pneumonia, sepsis, hypertensive heart disease with heart failure, hyperlipidemia, hypertension, iron deficiency anemia, gastroesophageal reflux disease, hypothyroidism,
chronic obstructive pulmonary disease, anemia, schizoaffective disorder/bipolar type, schizoaffective schizophrenia
Allergies the patient is allergic to bee venom, benzonatate, codeine, eggs, fluphenazine, haloperidol, hydroxychloroquine, influenza vaccine, iodine, penicillins, shellfish, sulfa medications, tomato
Medications:
Acetaminophen 650 mg p.o. every 6 hours as needed
Albuterol sulfate 2 puffs every 6 hours as needed
Allopurinol 300 mg p.o. daily as needed
Apidra Solostar U100 insulin subcu 4 times daily as needed
Bisacodyl 10 mg IN daily as needed
Debrox 5 drops twice daily for clogged ears
Cholecalciferol 1000 units p.o. daily
Clonazepam 1.5 mg p.o. nightly
Farxiga 10 mg p.o. daily
Docusate sodium 100 mg p.o. twice daily
Zetia 10 mg p.o. daily
Prozac 20 mg p.o. daily
Advair Diskus 1 puff twice daily
Flonase 2 sprays each nostril every day
Furosemide 40 mg p.o. daily
Lasix 40 mg p.o. every 6 hours as needed
Glucagon 3 mg intranasally daily as needed
Lantus Solostar U100 18 units subcu daily
Xopenex 0.63 mg every 8 hours as needed
Levothyroxine 75 mcg p.o. daily
Loperamide 2 mg p.o. every 6 hours
Lorazepam 2 mg p.o. every 8 hours
Melatonin 6 mg p.o. nightly
Metformin 1000 mg p.o. twice daily
Multivitamin with iron once a day
Olanzapine 10 mg p.o. daily
Ondansetron 4 mg p.o. every 8 hours as needed nausea and vomiting
MiraLAX 17 g p.o. daily as needed
Pravastatin 80 mg p.o. daily
Fleet enema 118 mL IN. daily as needed
Trazodone 150 mg p.o. daily as needed
Valacyclovir 500 mg p.o. twice daily
Valproic acid 500 mg p.o. daily
Valproic acid 750 mg po bid
Review of systems: Positive for ear pain positive for plugged sensation in ears, negative for chest pain, negative for drainage from ears, positive for pneumonia, negative for significant decrease in hearing
Physical examination:
Head: Atraumatic and normocephalic
Eyes: Extraocular movements are intact and pupils are equal and reactive to light
Ears: No infection noted. No fluid seen. No cerumen impactions noted. Good visualization was achieved
Nose: Normal mucosa
Oral cavity: Type III occlusion, no acute mucosal disease
Neck: Supple without adenopathy
Salivary glands: Normal to palpation
Thyroid gland: Normal
Voice: Normal volume and tone
Cranial nerves: 2 through 12 are intact
Face/General: Facial nerve is intact. No swelling or masses were noted. Skin tone is normal. No acute
Impression/Plan: I was asked to see this patient for bilateral ear pain and a plugged sensation. She does not have evidence of infection. She does however have evidence of bruxism and tongue thrust and temporomandibular joint tenderness indicating
that her problems are musculoskeletal and related to the jaw joint and the muscle surrounding it. I discussed with the patient that she needs to relax her jaw and avoid clenching her teeth. She should avoid chewy and crunchy foods. Heating pad
will be helpful. This should resolve over time. I will plan on seeing the patient back as needed.
[2023-04-15 12:04] LABS: Glucose - Point of Care 173 mg/dl (70-99)
[2023-04-15] MEDS: ZOFRAN 4 MG IV ×2 (12:13→21:31)
[2023-04-15] MEDS: DEPAKENE 750 MG PO ×2 (12:14→19:44)
[2023-04-15] MEDS: DUONEB INH (13:54)
[2023-04-15 16:53] LABS: Glucose - Point of Care 167 mg/dl (70-99)
[2023-04-15] MEDS: LOVENOX 40 MG SC (17:13)
[2023-04-15] MEDS: LEVAQUIN 150 IV (21:31)
[2023-04-15] MEDS: KLONOPIN 1.5 MG PO (21:31)
[2023-04-15 21:41] LABS: Glucose - Point of Care 226 mg/dl (70-99)
[2023-04-16] VITALS (15 sets, daily range): BP systolic 131–161; BP diastolic 77–95; PULSE 81–103; O2SAT 94; BMI 38.5
--- NOTE | 2023-04-16 03:26 | PTCARENOTE ---
received patient from [facility]- pt is AAOX3- garbled speech noted. pt cooperative with care but tearful at beginning of shift since she is not going home. positive reinforcement given. full bed bath given- PW dislodged- pt changed and turned- pt
super happy after full bath. requesting to wear her CPAP tonight- notified covering [employer]- CPAP ordered and placed on patient before bed. 94% 4L NC. using call [place] appropriately. care ongoing.
[2023-04-16 04:33] LABS: Hematocrit 36.9 % (37.0-47.0); Hemoglobin 12.7 g/dL (12.0-16.0); Mean Corp Hgb Conc. 34.4 g/dL (33.0-37.0); Mean Corpuscular Hgb 38.5 pg (27.0-31.0); Mean Corpuscular Volume 111.8 fL (81.0-99.0); Mean Platelet Volume 8.8 fL (7.4-10.4); Platelet Count 212 10^3/uL (130-400); Red Cell Dist. Width 13.1 % (11.5-14.5); White Blood Cell Count 8.9 10^3/uL (4.8-10.8)
[2023-04-16 04:59] LABS: Blood Urea Nitrogen 41 mg/dl (7-17); Calcium 9.5 mg/dl (8.4-10.2); Carbon Dioxide 36 mmol/L (22-30); Chloride 94 mmol/L (98-107); Estimated Creatinine Clearance 55 ml/min; Glucose 162 mg/dl (70-99); Magnesium 2.3 mg/dl (1.6-2.3); Potassium 3.9 mmol/L (3.5-5.1); Sodium 139 mmol/L (135-145); eGFR > 60.00
[2023-04-16] MEDS: SYNTHROID 75 MCG PO (06:04)
[2023-04-16] MEDS: DUONEB 3 ML INH ×4 (07:32→19:52)
--- NOTE | 2023-04-16 07:58 | W.PN.HOSP.TC ---
Addendum entered and electronically signed by Indy Wing MD 04/16/23 14:13:
# Sepsis�was ruled out
Original Note:
Today's Communication/Plan
-
see A/P
Wean O2 as tolerated
Assessment / Plan
Assessment / Plan
A/P:
# R basilar aspiration pneumonitis
# Acute on chronic Hypoxic respiratory failure, due to above
# HX Home O2 dependent� (2L)
# COPD
LAST PICKER On 2L NC, currently on 7L NC, wean O2 as tolerated
COVID/Flu negative, blood Cx neg, Check MRSA screen
Pt refused SPL eval this admission , reattempt if able
Changed diet to dysphagic from last evaluation in 02/2022
procal neg, hence less likely aspiration pneumonia
Pt was started with Levaquin, cont for 5 days total
DuoNeb
Check repeat CXR 04/16
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
no obvious discharge
Appreciate ENT, recc heating pad
# HX CIELO
# Obesity secondary to excess calories
# Schizoaffective disorder
# HX developmental delay, halfway resident
cont LAST PICKER fluoxetine, olanzapine, Depakote�
cont LAST PICKER clonazepam, Ativan, trazodone�with holding parameter (for excessive sedation)
# Essential hypertension
on Lasix
# T2DM
LAST PICKER on Farxiga
Hold metformin
ISS low
# Hypothyroidism
cont�levothyroxine
# Chronic constipation
cont stool softeners
# Gout
cont allopurinol
# Hypercholesterolemia
Continue statin
DVT Px: Lovenox SQ
DW RN
Anticipated Discharge: Within 24 hours
Subjective/Interval History
-
Date of Service: April 16, 2023
Objective Data
-
Labs:
Laboratory Results
04/16/23
04:13
WBC 8.9
Hgb 12.7
Hct 36.9 L
Plt Count 212
Sodium 139
Potassium 3.9
Chloride 94 L
Carbon Dioxide 36 H
BUN 41 H
Creatinine 1.0
Glucose 162 H
Calcium 9.5
Vital Signs:
Vital Signs
Temp Pulse Resp BP Pulse Ox
37.0 C 91 13 157/89 97
04/16/23 02:54 04/16/23 07:34 04/16/23 07:34 04/16/23 06:00 04/16/23 07:34
I&O
04/15/23 04/16/23 04/17/23
06:59 06:59 06:59
Intake Total 800 / 800 240 / 240
Output Total 1700 / 1700 1200 / 1200
Balance -900 / -900 -960 / -960
Review of Systems
-
All other systems: Reviewed and negative
Physical Exam
-
General: Comfortable, Conversant, Obese and Other (developmental delay)
HEENT: Normocephalic and Oxygen (7L NC)
Respiratory: Clear to Auscultation and Non Labored Respirations; Negative Accessory Resp Muscle Use
Cardiac: Regular Rhythm and S1/S2
GI: Soft
Neuro: Awake
Psych: Calm
Data Reviewed
-
Diagnostic Radiology: Report Reviewed by me
Labs: Labs Reviewed by me
[2023-04-16 08:24] LABS: Glucose - Point of Care 179 mg/dl (70-99)
[2023-04-16] MEDS: NOVOLOG FLEXPEN-LOW RESISTANCE 1 UNITS SC ×2 (08:59→17:37)
[2023-04-16] MEDS: ZYPREXA 10 MG PO (09:00)
[2023-04-16] MEDS: ZETIA 10 MG PO (09:00)
[2023-04-16] MEDS: FARXIGA 10 MG PO (09:00)
[2023-04-16] MEDS: PROZAC 20 MG PO (09:00)
[2023-04-16] MEDS: PRAVACHOL 80 MG PO (09:00)
[2023-04-16] MEDS: VALTREX 500 MG PO ×2 (09:00→19:48)
[2023-04-16] MEDS: LASIX 40 MG PO (09:00)
[2023-04-16] MEDS: LANTUS 0.179999999999999993 UNITS SC (09:02)
--- NOTE | 2023-04-16 11:54 | PTOTSP ---
Dysphagia Evaluation
Patient has chronic risk factors for dysphagia (i.e., myotonic muscular dystrophy, COPD, asthma, GERD, significant psychiatric history, developmental delay). No signs concerning for dysphagia or aspiration observed with limited assessment this date
(i.e., thin liquids; pt refusing additional PO).
Patient is currently on a modified diet (IDDSI Level 6 Soft and Bite Sized, IDDSI Level 0 Thin Liquids) per ENT due to TMJ/bruxism with recommendation to avoid crunchy/chewy foods. Will defer to MD for solids given patient's solid refusal. Patient
denied any difficulty chewing/swallowing. RN reported no difficulties with PO intake noted at this time.
If concerned for silent aspiration given patient's PMH and admission with R PNA, could consider a video swallow study. However, suspect ability to perform this test may be limited by patient's refusal of PO.
Recommend:
1. Defer to MD for solids, IDDSI Level 0 (Thin Liquids)
2. Medications as best tolerated
3. Reflux precautions given history of GERD
4. Will attempt to assess with solids during a meal as able/appropriate.
[2023-04-16 12:00] LABS: Glucose - Point of Care 201 mg/dl (70-99)
[2023-04-16] MEDS: DEPAKENE 750 MG PO ×2 (12:25→19:48)
[2023-04-16] MEDS: NOVOLOG FLEXPEN-LOW RESISTANCE 2 UNITS SC (12:25)
--- NOTE | 2023-04-16 12:57 | PN.CDI ---
CDI
- -
CDI:
Physician Documentation Request
Admit Date: 04/12/23 22:51
Dear Doctor Mecca,
Please review the following and provide your response in the progress notes.
Clinical Indicators:
The diagnosis of sepsis was documented on 2/5 PN but is not consistently noted in subsequent documentation.
- 2/ PN 'Sepsis POA due to R basilar CAP'
- 2/6 PN 'R basilar aspiration pneumonitis'
Please clarify the following:
____ - Sepsis was present on admission and is now resolved.
____ - Sepsis was present on admission and is still being monitored, evaluated or treated
____ - Sepsis was ruled out
____ - Sepsis is still a likely, suspected, probable diagnosis
____ - Other
Use of terms such as suspected, likely, concern for, or probable (associated with a specific diagnosis that is being evaluated, monitored, or treated as if it exists) are acceptable and can be coded in the inpatient setting, when documented at the
time of discharge.
Thank you,
Silvino Harris RN
CDI Specialist
Please use your independent medical judgment in providing your response.
--- NOTE | 2023-04-16 15:57 | PTCARENOTE ---
Assumed care of patient at beginning of this shift from previous RN with O2 6l n/c in use. Patient OOB to chair with PT and tolerated well for several hours. 2-view CXR entered for tomorrow; confirmed with Dr Wing that Xray should be done today.
Order adjusted and dept notified. O2 sat initially 91-93%; placed back to bed and POx 88-89%. Respiratory therapist made aware and administered resp treatment. Currently 93%.
[2023-04-16 17:21] LABS: Glucose - Point of Care 172 mg/dl (70-99)
[2023-04-16] MEDS: LOVENOX 40 MG SC (17:37)
[2023-04-16] MEDS: ZOFRAN 4 MG IV (19:54)
[2023-04-16] MEDS: LEVAQUIN 150 IV (21:09)
[2023-04-16] MEDS: KLONOPIN 1.5 MG PO (21:09)
[2023-04-16 21:27] LABS: Glucose - Point of Care 220 mg/dl (70-99)
[2023-04-17] VITALS (15 sets, daily range): BP systolic 139–181; BP diastolic 70–143; PULSE 85–88; BMI 39.0
--- NOTE | 2023-04-17 03:14 | PTCARENOTE ---
assumed care of patient- pt able to make needs known- can be tearful at times. positive and calming environment maintained. PW intact- some c/o nausea- IV zofran given per MAY. CPAP on for HS. able to swallow pills whole with water. care ongoing.
[2023-04-17] MEDS: SYNTHROID 75 MCG PO (05:16)
[2023-04-17 05:33] LABS: Hematocrit 36.2 % (37.0-47.0); Hemoglobin 12.4 g/dL (12.0-16.0); Mean Corp Hgb Conc. 34.3 g/dL (33.0-37.0); Mean Corpuscular Hgb 37.6 pg (27.0-31.0); Mean Corpuscular Volume 109.7 fL (81.0-99.0); Mean Platelet Volume 9.2 fL (7.4-10.4); Platelet Count 215 10^3/uL (130-400); Red Cell Dist. Width 12.9 % (11.5-14.5); White Blood Cell Count 8.3 10^3/uL (4.8-10.8)
[2023-04-17 05:35] LABS: Blood Urea Nitrogen 34 mg/dl (7-17); Calcium 9.1 mg/dl (8.4-10.2); Carbon Dioxide 36 mmol/L (22-30); Chloride 95 mmol/L (98-107); Estimated Creatinine Clearance 55 ml/min; Glucose 168 mg/dl (70-99); Potassium 3.8 mmol/L (3.5-5.1); Sodium 137 mmol/L (135-145); eGFR > 60.00
[2023-04-17 07:34] LABS: Glucose - Point of Care 183 mg/dl (70-99)
--- NOTE | 2023-04-17 07:53 | W.PN.HOSP.TC ---
Today's Communication/Plan
-
DC back to prior facility today
Assessment / Plan
Assessment / Plan
A/P:
# R basilar aspiration pneumonitis
# Acute on chronic Hypoxic respiratory failure, due to above
# HX Home O2 dependent� (2L)
# COPD
POLE SETTER on 2L NC, weaned from 7L NC 0> 4L NC, cont to wean O2 as tolerated after discharge
COVID/Flu negative, blood Cx neg, MRSA screen negative
Pt has been refusing several attempts of SPL eval this admission
Changed diet to dysphagic from last evaluation in 02/2022
procal neg on admission, hence less likely aspiration pneumonia
Pt was started with Levaquin, cont for 5 days total
DuoNeb
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
Appreciate ENT, recc heating pad
# HX CIELO
# Obesity secondary to excess calories
# Schizoaffective disorder
# HX developmental delay, long term resident
cont POLE SETTER fluoxetine, olanzapine, Depakote�
cont POLE SETTER clonazepam, Ativan, trazodone�with holding parameter (for excessive sedation)
# Essential hypertension
on Lasix
# T2DM
POLE SETTER on Farxiga
Hold metformin
ISS low
# Hypothyroidism
cont�levothyroxine
# Chronic constipation
cont stool softeners
# Gout
cont allopurinol
# Hypercholesterolemia
Continue statin
DVT Px: Lovenox SQ
DW RN
Anticipated Discharge: Today
Subjective/Interval History
-
Date of Service: April 17, 2023
Objective Data
-
Labs:
Laboratory Results
04/17/23
05:08
WBC 8.3
Hgb 12.4
Hct 36.2 L
Plt Count 215
Sodium 137
Potassium 3.8
Chloride 95 L
Carbon Dioxide 36 H
BUN 34 H
Creatinine 1.0
Glucose 168 H
Calcium 9.1
Vital Signs:
Vital Signs
Temp Pulse Resp BP Pulse Ox
36.9 C 85 15 142/70 91
04/17/23 03:35 04/17/23 06:00 04/17/23 06:00 04/17/23 06:00 04/17/23 06:00
I&O
04/16/23 04/17/23 04/18/23
06:59 06:59 06:59
Intake Total 240 / 240 120 / 120
Output Total 1200 / 1200 750 / 750
Balance -960 / -960 -630 / -630
Review of Systems
-
All other systems: Reviewed and negative
Physical Exam
-
General: Comfortable, Conversant, Obese and Other (developmental delay)
HEENT: Normocephalic and Oxygen (7L -> 4L NC)
Respiratory: Clear to Auscultation and Non Labored Respirations; Negative Accessory Resp Muscle Use
Cardiac: Regular Rhythm and S1/S2
GI: Soft
Neuro: Awake
Psych: Calm
Data Reviewed
-
Diagnostic Radiology: Report Reviewed by me
Labs: Labs Reviewed by me
[2023-04-17] MEDS: NOVOLOG FLEXPEN-LOW RESISTANCE 1 UNITS SC (07:54)
[2023-04-17] MEDS: VALTREX 500 MG PO ×2 (07:55→19:48)
[2023-04-17] MEDS: PRAVACHOL 80 MG PO (07:55)
[2023-04-17] MEDS: PROZAC 20 MG PO (07:55)
[2023-04-17] MEDS: ZYPREXA 10 MG PO (07:55)
[2023-04-17] MEDS: LASIX 40 MG PO (07:55)
[2023-04-17] MEDS: ZETIA 10 MG PO (07:55)
[2023-04-17] MEDS: FARXIGA 10 MG PO (07:55)
[2023-04-17] MEDS: DUONEB 3 ML INH ×4 (08:03→19:54)
[2023-04-17] MEDS: LANTUS 0.179999999999999993 UNITS SC (08:12)
--- NOTE | 2023-04-17 09:36 | PTCARENOTE ---
Spoke with nurse Briggs at pts [facility] who states that pt cant return on 4 liters o2. pt is tearful and angry about not going back to [facility] today. pt states she is refusing to get oob to chair, use IS or do anything bc she is upset. emotional
support given.
--- NOTE | 2023-04-17 10:38 | CM ---
Addendum entered by Kathleen Benedict 04/17/23 17:24:
i called [facility] and was told they are a home care agency and do not have any inpatient respit.patient is not appropriate for short term rehab in nursing facility since she is a level 2 passr and will not be given auth from insurance for short
term rehab.discussed with rachael [employer].
Addendum entered by Kathleen Benedict 04/17/23 13:18:
i met with kip elam from [facility] who visited with patient.i gave her a medical update and told her patient is doing better with oxygenation.i them received a call from nurse abhay [phone] and nursing department chairperson eleazar.eleazar is asking that patient
go to a respit facility such as [facility] for 30 days before she returns to [facility].they explained that they cannot handle patient medically because they are not a nursing facility.i will send referral to [facility].
Original Note:
met with patient at bedside.she is down from 7 liters nc o2 to 4 liters and sating okay,cont iv tata [place].discharge order in but will samano indicated [facility] would not take patient back on 4 liters o2.she was on 2 liters at facility.
patient was very tearful that she was not able to reuturn today.patient told me she is not going to eat because she cannot go home. call placed to nursing at [facility] and am awaiting call back from [phone] to discuss patient's discharge.
[2023-04-17 11:10] LABS: Glucose - Point of Care 225 mg/dl (70-99)
[2023-04-17] MEDS: DEPAKENE 750 MG PO ×2 (11:20→19:48)
[2023-04-17] MEDS: NOVOLOG FLEXPEN-LOW RESISTANCE 2 UNITS SC (11:21)
--- NOTE | 2023-04-17 11:45 | PTCARENOTE ---
no bm documented in pts chart. pt unsure of last bm but states its been 'a while' since last bm. fleets enema offered but pt declining at this time. requesting miralax. hospitalist made aware. pt is sitting oob in chair currently.
[2023-04-17] MEDS: MIRALAX 17 GRAMS PO (15:05)
[2023-04-17 16:00] LABS: Glucose - Point of Care 287 mg/dl (70-99)
[2023-04-17] MEDS: NOVOLOG FLEXPEN-LOW RESISTANCE 3 UNITS SC (17:03)
[2023-04-17] MEDS: LOVENOX 40 MG SC (17:45)
[2023-04-17] MEDS: KLONOPIN 1.5 MG PO (20:33)
[2023-04-17] MEDS: LEVAQUIN 150 IV (21:11)
[2023-04-17 21:32] LABS: Glucose - Point of Care 277 mg/dl (70-99)
[2023-04-18] VITALS (14 sets, daily range): BP systolic 112–166; BP diastolic 58–88; PULSE 85–108; O2SAT 95; BMI 39.0
[2023-04-18 05:00] LABS: Hematocrit 35.6 % (37.0-47.0); Hemoglobin 12.5 g/dL (12.0-16.0); Mean Corp Hgb Conc. 35.1 g/dL (33.0-37.0); Mean Corpuscular Hgb 38.6 pg (27.0-31.0); Mean Corpuscular Volume 109.9 fL (81.0-99.0); Mean Platelet Volume 9.1 fL (7.4-10.4); Platelet Count 196 10^3/uL (130-400); Red Blood Cell Count 3.24 10^6/uL (4.20-5.40); Red Cell Dist. Width 12.8 % (11.5-14.5); White Blood Cell Count 7.9 10^3/uL (4.8-10.8)
[2023-04-18] MEDS: SYNTHROID 75 MCG PO (05:27)
[2023-04-18 05:28] LABS: Blood Urea Nitrogen 37 mg/dl (7-17); Calcium 9.3 mg/dl (8.4-10.2); Chloride 90 mmol/L (98-107); Estimated Creatinine Clearance 55 ml/min; Glucose 172 mg/dl (70-99); Potassium 3.7 mmol/L (3.5-5.1); Sodium 138 mmol/L (135-145); eGFR > 60.00
[2023-04-18 05:38] LABS: Carbon Dioxide 40 mmol/L (22-30)
--- NOTE | 2023-04-18 06:11 | PTCARENOTE ---
assumed care of patient- pt is AAOx3- able to make needs known. garbled speech noted. pt on 3L NC- while sleeping dropped to 80s- increased back to 4L. pt with no SOB. PW in place and working. care ongoing.
[2023-04-18] MEDS: DUONEB 3 ML INH ×4 (07:24→19:19)
--- NOTE | 2023-04-18 07:38 | W.PN.HOSP.TC ---
Today's Communication/Plan
-
see A/P
start vest therapy
Assessment / Plan
Assessment / Plan
A/P:
# R basilar aspiration pneumonitis
# Acute on chronic Hypoxic respiratory failure, due to above
# HX Home O2 dependent� (2L)
# COPD
SALES VENDOR on 2L NC, back on 6L NC, cont to wean O2 as tolerated (shelter can only take back on 2L NC)
COVID/Flu negative, blood Cx neg, MRSA screen negative
Pt has been refusing several attempts of SPL eval this admission
Changed diet to dysphagic from last evaluation in 02/2022
procal neg on admission, hence less likely aspiration pneumonia
Pt was started with Levaquin, cont for 5 days total
Cont Acapella, start vest therapy
DuoNeb
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
Appreciate ENT, recc heating pad
# HX CIELO
# Obesity secondary to excess calories
# Schizoaffective disorder
# HX developmental delay, shelter resident
cont SALES VENDOR fluoxetine, olanzapine, Depakote�
cont SALES VENDOR clonazepam, Ativan, trazodone�with holding parameter (for excessive sedation)
# Essential hypertension
on Lasix
# T2DM
SALES VENDOR on Farxiga
Hold metformin
ISS low
# Hypothyroidism
cont�levothyroxine
# Chronic constipation
cont stool softeners
# Gout
cont allopurinol
# Hypercholesterolemia
Continue statin
DVT Px: Lovenox SQ
DW RN
Anticipated Discharge: 24 - 48 hours
Subjective/Interval History
-
Date of Service: April 18, 2023
Objective Data
-
Labs:
Laboratory Results
04/18/23
04:44
WBC 7.9
Hgb 12.5
Hct 35.6 L
Plt Count 196
Sodium 138
Potassium 3.7
Chloride 90 L
Carbon Dioxide 40 H
BUN 37 H
Creatinine 1.0
Glucose 172 H
Calcium 9.3
Vital Signs:
Vital Signs
Temp Pulse Resp BP Pulse Ox
36.6 C 86 18 154/88 95
04/18/23 04:30 04/18/23 07:33 04/18/23 07:33 04/18/23 06:00 04/18/23 07:33
I&O
04/17/23 04/18/23 04/19/23
06:59 06:59 06:59
Intake Total 120 / 120
Output Total 750 / 750 1999
Balance -630 / -630 -1999
Review of Systems
-
All other systems: Reviewed and negative
Physical Exam
-
General: Comfortable, Conversant, Obese and Other (developmental delay)
HEENT: Normocephalic and Oxygen (6L NC)
Respiratory: Clear to Auscultation and Non Labored Respirations; Negative Accessory Resp Muscle Use
Cardiac: Regular Rhythm and S1/S2
GI: Soft
Neuro: Awake
Psych: Calm
Data Reviewed
-
Diagnostic Radiology: Report Reviewed by me
Labs: Labs Reviewed by me
[2023-04-18 07:52] LABS: Glucose - Point of Care 183 mg/dl (70-99)
[2023-04-18] MEDS: NOVOLOG FLEXPEN-LOW RESISTANCE 1 UNITS SC (08:27)
[2023-04-18] MEDS: FARXIGA 10 MG PO (08:27)
[2023-04-18] MEDS: LASIX 40 MG PO (08:27)
[2023-04-18] MEDS: MIRALAX 17 GRAMS PO (08:28)
[2023-04-18] MEDS: LANTUS 0.179999999999999993 UNITS SC (08:28)
[2023-04-18] MEDS: ZYPREXA 10 MG PO (08:28)
[2023-04-18] MEDS: PROZAC 20 MG PO (08:28)
[2023-04-18] MEDS: PRAVACHOL 80 MG PO (08:28)
[2023-04-18] MEDS: ZETIA 10 MG PO (08:28)
[2023-04-18] MEDS: VALTREX 500 MG PO ×2 (08:28→20:19)
[2023-04-18] MEDS: NOVOLOG FLEXPEN-LOW RESISTANCE 3 UNITS SC ×2 (11:47→16:02)
[2023-04-18 11:48] LABS: Glucose - Point of Care 297 mg/dl (70-99)
[2023-04-18] MEDS: DEPAKENE 750 MG PO ×2 (12:48→20:19)
--- NOTE | 2023-04-18 16:02 | CM ---
CM following re: d/c planning
Chart reviewed
Pt medical status remains unchanged
CM sent a TT to the hospitalist to reiterate that patient cannot return back to group on liter flow greater than 2L
Pt has fluctuated between 3L & 6L NC throughout the day; pt did consume 100% of her breakfast meal and has not had any spike in her temperature
Pt will need to participate in therapy; last PT note 04/16
IV Levaquin continues as ordered and patient also receiveing vest therapy
CM will continue to follow patient progress and assist with needs at d/c as indicated
PLAN; d/c back to [facility] when medically stable
[2023-04-18 16:12] LABS: Glucose - Point of Care 260 mg/dl (70-99)
[2023-04-18] MEDS: LOVENOX 40 MG SC (17:03)
[2023-04-18] MEDS: KLONOPIN 1.5 MG PO (20:19)
[2023-04-18] MEDS: TYLENOL 650 MG PO (20:19)
[2023-04-18 22:43] LABS: Glucose - Point of Care 302 mg/dl (70-99)
[2023-04-19] VITALS (7 sets, daily range): BP systolic 99–137; BP diastolic 54–89; PULSE 79–86; BMI 38.9
[2023-04-19 05:50] LABS: Hematocrit 36.8 % (37.0-47.0); Hemoglobin 12.6 g/dL (12.0-16.0); Mean Corp Hgb Conc. 34.2 g/dL (33.0-37.0); Mean Corpuscular Hgb 38.4 pg (27.0-31.0); Mean Corpuscular Volume 112.2 fL (81.0-99.0); Mean Platelet Volume 9.5 fL (7.4-10.4); Platelet Count 217 10^3/uL (130-400); Red Blood Cell Count 3.28 10^6/uL (4.20-5.40); Red Cell Dist. Width 12.6 % (11.5-14.5); White Blood Cell Count 8.2 10^3/uL (4.8-10.8)
[2023-04-19] MEDS: SYNTHROID 75 MCG PO (05:57)
[2023-04-19 06:10] LABS: Blood Urea Nitrogen 37 mg/dl (7-17); Calcium 9.3 mg/dl (8.4-10.2); Carbon Dioxide 40 mmol/L (22-30); Chloride 90 mmol/L (98-107); Estimated Creatinine Clearance 69 ml/min; Glucose 193 mg/dl (70-99); Potassium 3.8 mmol/L (3.5-5.1); Sodium 138 mmol/L (135-145); eGFR > 60.00
[2023-04-19] MEDS: DUONEB 3 ML INH ×4 (07:21→19:09)
[2023-04-19 07:36] LABS: Glucose - Point of Care 229 mg/dl (70-99)
--- NOTE | 2023-04-19 08:43 | W.PN.HOSP.TC ---
Today's Communication/Plan
-
disposition effort
Assessment / Plan
Assessment / Plan
A/P:
# R basilar aspiration pneumonitis
# Acute on chronic Hypoxic respiratory failure, due to above
# HX Home O2 dependent� (2L)
# COPD
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
COVID/Flu negative, blood Cx neg, MRSA screen negative
Pt has been refusing several attempts of SPL eval this admission
Changed diet to dysphagic from last evaluation in 02/2022
procal neg on admission, hence less likely aspiration pneumonia
s/p Levaquin 5 days
Cont Acapella, vest therapy, DuoNeb
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
Appreciate ENT, recc heating pad
# HX CIELO
# Obesity secondary to excess calories
# Schizoaffective disorder
# HX developmental delay, alf resident
cont LINE ERECTOR APPRENTICE fluoxetine, olanzapine, Depakote�
cont LINE ERECTOR APPRENTICE clonazepam, Ativan, trazodone�with holding parameter (for excessive sedation)
# Essential hypertension
on Lasix
# T2DM
LINE ERECTOR APPRENTICE on Farxiga
Hold metformin
ISS low
# Hypothyroidism
cont�levothyroxine
# Chronic constipation
cont stool softeners
# Gout
cont allopurinol
# Hypercholesterolemia
Continue statin
DVT Px: Lovenox SQ
Anticipated Discharge: Within 24 hours
Subjective/Interval History
-
Date of Service: April 19, 2023
Objective Data
-
Labs:
Laboratory Results
04/19/23
04:53
WBC 8.2
Hgb 12.6
Hct 36.8 L
Plt Count 217
Sodium 138
Potassium 3.8
Chloride 90 L
Carbon Dioxide 40 H
BUN 37 H
Creatinine 0.8
Glucose 193 H
Calcium 9.3
Vital Signs:
Vital Signs
Temp Pulse Resp BP Pulse Ox
36.7 C 79 18 108/54 93
04/19/23 05:15 04/19/23 07:24 04/19/23 07:24 04/19/23 04:00 04/19/23 07:24
I&O
04/18/23 04/19/23 04/20/23
06:59 06:59 06:59
Intake Total 240 / 240
Output Total 1999 / 1999 600 / 600 700 / 700
Balance -2000 / -2000 -600 / -600 -460 / -460
Review of Systems
-
All other systems: Reviewed and negative
Physical Exam
-
General: Comfortable, Conversant, Obese and Other (developmental delay)
HEENT: Normocephalic and Oxygen (6L NC)
Respiratory: Clear to Auscultation and Non Labored Respirations; Negative Wheezes or Accessory Resp Muscle Use
Cardiac: Regular Rhythm and S1/S2
GI: Soft
Neuro: Awake
Psych: Calm
Data Reviewed
-
Diagnostic Radiology: Report Reviewed by me
Labs: Labs Reviewed by me
[2023-04-19] MEDS: NOVOLOG FLEXPEN-LOW RESISTANCE 2 UNITS SC (09:54)
[2023-04-19] MEDS: PROZAC 20 MG PO (09:56)
[2023-04-19] MEDS: LASIX 40 MG PO (09:56)
[2023-04-19] MEDS: FARXIGA 10 MG PO (09:57)
[2023-04-19] MEDS: ZYPREXA 10 MG PO (09:57)
[2023-04-19] MEDS: PRAVACHOL 80 MG PO (09:57)
[2023-04-19] MEDS: MIRALAX 17 GRAMS PO (09:57)
[2023-04-19] MEDS: ZETIA 10 MG PO (09:57)
[2023-04-19] MEDS: LANTUS 0.179999999999999993 UNITS SC (09:58)
--- NOTE | 2023-04-19 11:44 | CM ---
patient with asp pna sp 5 days iv levaquin.patient now on 6 liters nc o2 and staff will continue to wean as tolerated.discussed with attending.doctor feels patient is medically stable to be discharge.i explained that facility will not take her back
because that was her baseline at [facility].as far as finding another place for patient to go it would be difficult if not impossible for a rehab facility to accept her since she does have a psych dx and is becoming more compromised medically. a
new facility would be weary of accepting her since they may have to house her permanently(if [facility] refuses to take her back from rehab facility). i explained that our cm chef kitchen manager wants [facility] to accept her back because there is really no
other place for patient to go. was accepting of explanation.hopefully patient can wean down to 2 liters nc o2.
[2023-04-19 12:19] LABS: Glucose - Point of Care 267 mg/dl (70-99)
[2023-04-19] MEDS: VALTREX 500 MG PO ×2 (12:41→19:57)
[2023-04-19] MEDS: DEPAKENE 750 MG PO ×2 (12:41→19:57)
[2023-04-19] MEDS: NOVOLOG FLEXPEN-LOW RESISTANCE 3 UNITS SC ×2 (12:42→16:56)
--- NOTE | 2023-04-19 14:15 | PTCARENOTE ---
Pt. transferred from IMU to . VSS. Call azevedo within reach. Patient oriented to unit.
--- NOTE | 2023-04-19 14:33 | CM ---
patient with asp pna sp 5 days iv levaquin.patient now on 6 liters nc o2 and staff will continue to wean as tolerated.discussed with attending.doctor feels patient is medically stable to be discharge.i explained that facility will not take her back
because that was her baseline at [facility].if patient would need snf placement then it would be very challenging.our cm manager of hospital is following patient as well..hopefully patient can wean down to 2 liters nc o2 and return to [facility].
[2023-04-19 16:55] LABS: Glucose - Point of Care 286 mg/dl (70-99)
[2023-04-19] MEDS: LOVENOX 40 MG SC (16:59)
[2023-04-19] MEDS: KLONOPIN 1.5 MG PO (21:21)
[2023-04-19 21:35] LABS: Glucose - Point of Care 258 mg/dl (70-99)
[2023-04-20] VITALS (7 sets, daily range): BP systolic 110–145; BP diastolic 68–84; PULSE 101; O2SAT 100; BMI 39.8
[2023-04-20] MEDS: SYNTHROID 75 MCG PO (06:29)
[2023-04-20] MEDS: DUONEB 3 ML INH ×4 (07:20→20:00)
[2023-04-20 07:28] LABS: Glucose - Point of Care 187 mg/dl (70-99)
[2023-04-20 07:29] LABS: Hematocrit 34.2 % (37.0-47.0); Hemoglobin 12.3 g/dL (12.0-16.0); Mean Corpuscular Hgb 38.6 pg (27.0-31.0); Mean Corpuscular Volume 107.2 fL (81.0-99.0); Mean Platelet Volume 10.1 fL (7.4-10.4); Platelet Count 225 10^3/uL (130-400); Red Blood Cell Count 3.19 10^6/uL (4.20-5.40); Red Cell Dist. Width 12.8 % (11.5-14.5); White Blood Cell Count 9.1 10^3/uL (4.8-10.8)
[2023-04-20 07:46] LABS: Blood Urea Nitrogen 29 mg/dl (7-17); Calcium 9.1 mg/dl (8.4-10.2); Carbon Dioxide 38 mmol/L (22-30); Chloride 95 mmol/L (98-107); Estimated Creatinine Clearance 70 ml/min; Glucose 196 mg/dl (70-99); Potassium 3.9 mmol/L (3.5-5.1); Sodium 136 mmol/L (135-145); eGFR > 60.00
[2023-04-20] MEDS: LANTUS 0.179999999999999993 UNITS SC (08:11)
[2023-04-20] MEDS: LASIX 40 MG PO (08:11)
[2023-04-20] MEDS: PRAVACHOL 80 MG PO (08:11)
[2023-04-20] MEDS: VALTREX 500 MG PO ×2 (08:12→19:41)
[2023-04-20] MEDS: MIRALAX 17 GRAMS PO (08:12)
[2023-04-20] MEDS: FARXIGA 10 MG PO (08:12)
[2023-04-20] MEDS: PROZAC 20 MG PO (08:12)
[2023-04-20] MEDS: ZETIA 10 MG PO (08:12)
[2023-04-20] MEDS: ZYPREXA 10 MG PO (08:12)
[2023-04-20] MEDS: NOVOLOG FLEXPEN-LOW RESISTANCE 1 UNITS SC (09:32)
--- NOTE | 2023-04-20 10:02 | W.PN.HOSP.TC ---
Today's Communication/Plan
-
wean O2 as tolerated
Assessment / Plan
Assessment / Plan
A/P:
# R basilar aspiration pneumonitis
# Acute on chronic Hypoxic respiratory failure, due to above
# HX Home O2 dependent� (2L)
# COPD
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
COVID/Flu negative, blood Cx neg, MRSA screen negative
Pt has been refusing several attempts of SPL eval this admission
Changed diet to dysphagic from last evaluation in 02/2022
procal neg on admission, hence less likely aspiration pneumonia
s/p Levaquin 5 days
Cont Acapella, vest therapy, DuoNeb
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
Appreciate ENT, recc heating pad
# HX CIELO
# Obesity secondary to excess calories
# Schizoaffective disorder
# HX developmental delay, fdc resident
cont FUR FARMER fluoxetine, olanzapine, Depakote�
cont FUR FARMER clonazepam, Ativan, trazodone�with holding parameter (for excessive sedation)
# Essential hypertension
on Lasix
# T2DM
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
Hold metformin
ISS low
# Hypothyroidism
cont�levothyroxine
# Chronic constipation
cont stool softeners
# Gout
cont allopurinol
# Hypercholesterolemia
Continue statin
DVT Px: Lovenox SQ
DW RN
Anticipated Discharge: 24 - 48 hours
Subjective/Interval History
-
Date of Service: April 20, 2023
Objective Data
-
Labs:
Laboratory Results
04/20/23
07:18
WBC 9.1
Hgb 12.3
Hct 34.2 L
Plt Count 225
Sodium 136
Potassium 3.9
Chloride 95 L
Carbon Dioxide 38 H
BUN 29 H
Creatinine 0.8
Glucose 196 H
Calcium 9.1
Vital Signs:
Vital Signs
Temp Pulse Resp BP Pulse Ox
36.3 C 90 20 130/71 93
04/20/23 07:02 04/20/23 08:11 04/20/23 07:22 04/20/23 08:11 04/20/23 07:22
I&O
04/19/23 04/20/23 04/21/23
06:59 06:59 06:59
Intake Total 910 / 910
Output Total 600 / 600 1350 / 1350
Balance -600 / -600 -440 / -440
Review of Systems
-
All other systems: Reviewed and negative
Physical Exam
-
General: Comfortable, Conversant, Obese and Other (developmental delay)
HEENT: Normocephalic and Oxygen (5L NC)
Respiratory: Clear to Auscultation and Non Labored Respirations; Negative Wheezes or Accessory Resp Muscle Use
Cardiac: Regular Rhythm and S1/S2
GI: Soft
Neuro: Awake
Psych: Calm
Data Reviewed
-
Diagnostic Radiology: Report Reviewed by me
Labs: Labs Reviewed by me
[2023-04-20 11:02] LABS: Glucose - Point of Care 275 mg/dl (70-99)
[2023-04-20] MEDS: NOVOLOG FLEXPEN-LOW RESISTANCE 3 UNITS SC (11:47)
[2023-04-20] MEDS: DEPAKENE 750 MG PO ×2 (11:57→19:41)
[2023-04-20 16:48] LABS: Glucose - Point of Care 243 mg/dl (70-99)
[2023-04-20] MEDS: NOVOLOG FLEXPEN-LOW RESISTANCE 2 UNITS SC (16:52)
[2023-04-20] MEDS: LOVENOX 40 MG SC (17:12)
[2023-04-20] MEDS: TYLENOL 650 MG PO (20:56)
[2023-04-20] MEDS: KLONOPIN 1.5 MG PO (21:00)
[2023-04-20 21:34] LABS: Glucose - Point of Care 217 mg/dl (70-99)
[2023-04-21 03:47] VITALS: BP 138/76
[2023-04-21 05:50] VITALS: BMI 39.9
[2023-04-21] MEDS: SYNTHROID 75 MCG PO (06:05)
[2023-04-21 06:45] LABS: Hematocrit 35.1 % (37.0-47.0); Hemoglobin 12.2 g/dL (12.0-16.0); Mean Corp Hgb Conc. 34.8 g/dL (33.0-37.0); Mean Corpuscular Hgb 38.6 pg (27.0-31.0); Mean Corpuscular Volume 111.1 fL (81.0-99.0); Mean Platelet Volume 9.4 fL (7.4-10.4); Platelet Count 212 10^3/uL (130-400); Red Blood Cell Count 3.16 10^6/uL (4.20-5.40); Red Cell Dist. Width 12.1 % (11.5-14.5); White Blood Cell Count 7.9 10^3/uL (4.8-10.8)
[2023-04-21 07:10] VITALS: BP 131/67
[2023-04-21 07:11] LABS: Blood Urea Nitrogen 27 mg/dl (7-17); Calcium 9.1 mg/dl (8.4-10.2); Carbon Dioxide 39 mmol/L (22-30); Chloride 95 mmol/L (98-107); Estimated Creatinine Clearance 62 ml/min; Glucose 171 mg/dl (70-99); Potassium 3.8 mmol/L (3.5-5.1); Sodium 136 mmol/L (135-145); eGFR > 60.00
[2023-04-21] MEDS: DUONEB 3 ML INH ×4 (07:40→20:38)
[2023-04-21 07:47] LABS: Glucose - Point of Care 191 mg/dl (70-99)
[2023-04-21] MEDS: LANTUS 0.179999999999999993 UNITS SC (09:13)
[2023-04-21] MEDS: LASIX 40 MG PO (09:13)
[2023-04-21] MEDS: PROZAC 20 MG PO (09:13)
[2023-04-21] MEDS: ZETIA 10 MG PO (09:13)
[2023-04-21] MEDS: FARXIGA 10 MG PO (09:13)
[2023-04-21] MEDS: NOVOLOG FLEXPEN-LOW RESISTANCE 1 UNITS SC (09:14)
[2023-04-21] MEDS: VALTREX 500 MG PO ×2 (09:14→20:05)
[2023-04-21] MEDS: MIRALAX 17 GRAMS PO (09:14)
[2023-04-21] MEDS: ZYPREXA 10 MG PO (09:14)
[2023-04-21] MEDS: PRAVACHOL 80 MG PO (09:14)
--- NOTE | 2023-04-21 10:37 | W.PN.HOSP.TC ---
Today's Communication/Plan
-
DC back to previous home setting
Assessment / Plan
Assessment / Plan
A/P:
# R basilar aspiration pneumonitis
# Acute on chronic Hypoxic respiratory failure, due to above
# HX Home O2 dependent� (2L)
# COPD
DESIGN COORDINATOR on 2L NC, being weaned slowly, back to 2L NC (home requirement), OK to return to previous long term (long term can only take back on 2L NC)
COVID/Flu negative, blood Cx neg, MRSA screen negative
Pt has been refusing several attempts of SPL eval this admission
Changed diet to dysphagic from last evaluation in 02/2022
procal neg on admission, hence less likely aspiration pneumonia
s/p Levaquin 5 days
Cont Acapella, vest therapy, DuoNeb
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
Appreciate ENT, recc heating pad
# HX CIELO
# Obesity secondary to excess calories
# Schizoaffective disorder
# HX developmental delay, long term resident
cont DESIGN COORDINATOR fluoxetine, olanzapine, Depakote�
cont DESIGN COORDINATOR clonazepam, Ativan, trazodone�with holding parameter (for excessive sedation)
# Essential hypertension
on Lasix
# T2DM
DESIGN COORDINATOR on Farxiga
Hold metformin
ISS low
# Hypothyroidism
cont�levothyroxine
# Chronic constipation
cont stool softeners
# Gout
cont allopurinol
# Hypercholesterolemia
Continue statin
DVT Px: Lovenox SQ
DW RN
Anticipated Discharge: Today
Subjective/Interval History
-
Date of Service: April 21, 2023
Objective Data
-
Labs:
Laboratory Results
04/21/23
06:02
WBC 7.9
Hgb 12.2
Hct 35.1 L
Plt Count 212
Sodium 136
Potassium 3.8
Chloride 95 L
Carbon Dioxide 39 H
BUN 27 H
Creatinine 0.9
Glucose 171 H
Calcium 9.1
Vital Signs:
Vital Signs
Temp Pulse Resp BP Pulse Ox
36.7 C 90 15 131/67 92
04/21/23 07:10 04/21/23 07:43 04/21/23 07:43 04/21/23 07:10 04/21/23 07:43
I&O
04/20/23 04/21/23 04/22/23
06:59 06:59 06:59
Intake Total 910 / 910 1350 / 1350
Output Total 1350 / 1350 550 / 550
Balance -440 / -440 800 / 800
Review of Systems
-
All other systems: Reviewed and negative
Physical Exam
-
General: Comfortable, Conversant, Obese and Other (developmental delay)
HEENT: Normocephalic and Oxygen (2L NC)
Respiratory: Clear to Auscultation and Non Labored Respirations; Negative Wheezes or Accessory Resp Muscle Use
Cardiac: Regular Rhythm and S1/S2
GI: Soft
Neuro: Awake
Psych: Calm
Data Reviewed
-
Diagnostic Radiology: Report Reviewed by me
Labs: Labs Reviewed by me
--- NOTE | 2023-04-21 10:51 | CM ---
Addendum entered by Sahra Mcneill 04/21/23 11:36:
Addendum: To add, CM met with pt at bedside to explain and pt verbalized understanding.
Original Note:
CM called [facility] [phone] and spoke with Sally. CM explained pt is doing well on 2L per attending and is stable and eager for return. Per Sally the facility can not accept today. Their montessori program director will have to review the admission
prior to accepting and that Director is not available until Saturday. Told there is no one network control supervisor to speak with.
CM also left a VM for Mirian Tavarez [employer] [phone] ext [phone] requesting callback.
Discharge dispo anticipated return to [facility] on 04/22 after [employer] approves.
[2023-04-21 11:00] VITALS: BP 101/69
[2023-04-21 11:01] LABS: Glucose - Point of Care 230 mg/dl (70-99)
[2023-04-21] MEDS: DEPAKENE 750 MG PO ×2 (13:10→20:05)
[2023-04-21] MEDS: NOVOLOG FLEXPEN-LOW RESISTANCE 2 UNITS SC ×2 (13:10→16:51)
[2023-04-21 15:00] VITALS: BP 120/66
[2023-04-21 15:40] LABS: Glucose - Point of Care 243 mg/dl (70-99)
[2023-04-21] MEDS: LOVENOX 40 MG SC (16:52)
[2023-04-21] MEDS: KLONOPIN 1.5 MG PO (21:00)
[2023-04-21 21:55] LABS: Glucose - Point of Care 200 mg/dl (70-99)
[2023-04-21 23:24] VITALS: BP 120/61
[2023-04-22 05:33] VITALS: BMI 38.7
[2023-04-22] MEDS: SYNTHROID 75 MCG PO (06:14)
[2023-04-22 06:35] LABS: Blood Urea Nitrogen 26 mg/dl (7-17); Carbon Dioxide 35 mmol/L (22-30); Chloride 95 mmol/L (98-107); Estimated Creatinine Clearance 69 ml/min; Glucose 162 mg/dl (70-99); Potassium 4.5 mmol/L (3.5-5.1); Sodium 136 mmol/L (135-145); eGFR > 60.00
[2023-04-22 07:10] VITALS: BP 92/41
[2023-04-22] MEDS: DUONEB 3 ML INH ×2 (07:52→11:24)
[2023-04-22 08:33] VITALS: BP 92/41
[2023-04-22 08:49] LABS: Glucose - Point of Care 158 mg/dl (70-99)
[2023-04-22] MEDS: NOVOLOG FLEXPEN-LOW RESISTANCE 1 UNITS SC (09:36)
[2023-04-22] MEDS: LANTUS 0.179999999999999993 UNITS SC (09:37)
[2023-04-22] MEDS: PRAVACHOL 80 MG PO (09:39)
[2023-04-22] MEDS: ZYPREXA 10 MG PO (09:39)
[2023-04-22] MEDS: ZETIA 10 MG PO (09:39)
[2023-04-22] MEDS: FARXIGA 10 MG PO (09:39)
[2023-04-22] MEDS: VALTREX 500 MG PO (09:39)
[2023-04-22] MEDS: PROZAC 20 MG PO (09:39)
[2023-04-22] MEDS: LASIX 40 MG PO (09:40)
[2023-04-22] MEDS: MIRALAX 17 GRAMS PO (09:41)
[2023-04-22 10:21] VITALS: BP 149/85; PULSE 102; O2SAT 95
[2023-04-22 11:59] LABS: Glucose - Point of Care 298 mg/dl (70-99)
[2023-04-22] MEDS: NOVOLOG FLEXPEN-LOW RESISTANCE 3 UNITS SC (12:19)
[2023-04-22] MEDS: DEPAKENE 750 MG PO (12:22)
--- NOTE | 2023-04-22 13:13 | W.PN.HOSP.TC ---
Addendum entered and electronically signed by Gary Estrada MD 04/23/23 17:17:
[id number]
Original Note:
Today's Communication/Plan
-
dc on home o2
f/u pcp outpatient
aspiration precautions
dysphagia diet
Assessment / Plan
Assessment / Plan
A/P:
# R basilar aspiration pneumonitis
# Acute on chronic Hypoxic respiratory failure, due to above
# HX Home O2 dependent� (2L)
# COPD
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
COVID/Flu negative, blood Cx neg, MRSA screen negative
Pt has been refusing several attempts of SPL eval this admission
Changed diet to dysphagic from last evaluation in 02/2022
procal neg on admission, hence less likely aspiration pneumonia
s/p Levaquin 5 days
Cont Acapella, vest therapy, DuoNeb
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
Appreciate ENT, recc heating pad
# HX CIELO
# Obesity secondary to excess calories
# Schizoaffective disorder
# HX developmental delay, intermediate resident
cont TYPE ROLLING MACHINE OPERATOR fluoxetine, olanzapine, Depakote�
cont TYPE ROLLING MACHINE OPERATOR clonazepam, Ativan, trazodone�with holding parameter (for excessive sedation)
# Essential hypertension
on Lasix
# T2DM
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
metformin
ISS low
titrate insulin as needed
# Hypothyroidism
cont�levothyroxine
# Chronic constipation
cont stool softeners
# Gout
cont allopurinol
# Hypercholesterolemia
Continue statin
DVT Px: Lovenox SQ
DW RN
More than 30 minutes spent in discharge including
Final examination of the patient
Summarizing hospital stay
Instructions for continuing care to all relevant caregivers
Preparation of discharge records, prescriptions, and referral forms
Total time spent (35 in minutes):
Anticipated Discharge: Today
Subjective/Interval History
-
Date of Service: April 22, 2023
no acute events
Objective Data
-
Labs:
Laboratory Results
04/22/23
05:04
WBC Cancelled
Hgb Cancelled
Hct Cancelled
Plt Count Cancelled
Sodium 136
Potassium 4.5
Chloride 95 L
Carbon Dioxide 35 H
BUN 26 H
Creatinine 0.8
Glucose 162 H
Calcium 9.0
Vital Signs:
Vital Signs
Temp Pulse Resp BP Pulse Ox
98.6 F 88 18 134/68 93
04/22/23 07:10 04/22/23 11:26 04/22/23 11:26 04/22/23 09:40 04/22/23 11:26
I&O
04/21/23 04/22/23 04/23/23
06:59 06:59 06:59
Intake Total 1350 / 1350 1180 / 1180
Output Total 550 / 550
Balance 800 / 800 1180 / 1180
Review of Systems
-
History Source: Patient
All other systems: Not reviewed unless documented
Physical Exam
-
General: Comfortable, Conversant, Obese and Other (developmental delay)
HEENT: Normocephalic and Oxygen (2L NC)
Respiratory: Clear to Auscultation and Non Labored Respirations; Negative Wheezes or Accessory Resp Muscle Use
Cardiac: Regular Rhythm and S1/S2
GI: Soft
Neuro: Awake, Alert, Oriented and AO x 3
Psych: Calm
Data Reviewed
-
Diagnostic Radiology: Image personally visualized and interpreted and Report Reviewed by me
Labs: Labs Reviewed by me
--- NOTE | 2023-04-22 13:17 | W.DS.TRANS ---
DC Summary - Veterinary Dentist
-
Discharge Instructions:
Discharge Diagnosis/Procedures acute on chronic hypoxia due to aspiration
pneumonitis; dysphagia
Diet As tolerated,Other diet
Additional Diets mechanical soft diet
Activity As tolerated
Driving Restrictions No driving
Instructions:
Stand-Alone Forms:
Changes to Home Medications: No
Discharge Medications:
DC Medications w/original date entered in [facility]
allopurinol 300 mg tablet 300 mg PO DAILY Gout 06/08/20
cholecalciferol (vitamin D3) 25 mcg (1,000 unit) tablet 1,000 units PO DAILY Supplement 06/08/20
levothyroxine 75 mcg tablet 75 mcg PO DAILY Thyroid 06/08/20
metformin 1,000 mg tablet 1,000 mg PO BID Diabetes 06/08/20
docusate sodium 100 mg capsule 100 mg PO BID 06/15/20
ondansetron HCl 4 mg tablet 4 mg PO Q8HPRN PRN nausea 05/04/21
acetaminophen 325 mg tablet 650 mg PO Q6HPRN PRN mild pain 05/28/21
bisacodyl 10 mg rectal suppository (OneLAX Bisacodyl) 10 mg MI DAILY PRN if no bm by 3rd day 09/13/21
dapagliflozin propanediol 10 mg tablet (Farxiga) 10 mg PO DAILY Diabetes 09/13/21
fluticasone 100 mcg-salmeterol 50 mcg/dose blistr powdr for inhalation (Advair Diskus) 1 inh inhalation R BID Lung/breathing issues 09/13/21
insulin glulisine U-100 100 unit/mL subcutaneous pen (Apidra SoloStar U-100 Insulin) 0 sliding scale dose SC QID PRN blood sugar 09/13/21
melatonin 3 mg tablet 6 mg PO HS Sleep 09/13/21
olanzapine 10 mg tablet (Zyprexa) 10 mg PO DAILY Mental Health/Anxiety 09/13/21
pravastatin 80 mg tablet 80 mg PO DAILY High cholesterol 09/13/21
valproic acid 250 mg capsule 500 mg PO DAILY Mental Health/Anxiety 09/13/21
fluoxetine 10 mg capsule (Prozac) 20 mg PO DAILY Depression 02/07/22
valproic acid 250 mg capsule 750 mg PO BID@1200,2000 Seizures 02/07/22
furosemide 40 mg tablet 40 mg PO DAILY Fluid retention/Swelling 02/08/22
multivitamin with iron 1 tab PO DAILY 07/08/22
albuterol sulfate 90 mcg/actuation aerosol inhaler (ProAir HFA) 2 puff inhalation R Q6HPRN PRN sob 04/12/23
benzonatate 100 mg capsule 100 mg PO TIDPRN PRN constipation 04/12/23
carbamide peroxide 6.5 % ear drops (Debrox) 5 drp otic (ear) BIDPRN PRN clogged ear 04/12/23
ezetimibe 10 mg tablet (Zetia) 10 mg PO DAILY 04/12/23
fluticasone propionate 50 mcg/actuation nasal spray,suspension 2 spray intranasal DAILYPRN PRN allergies 04/12/23
furosemide 20 mg tablet (Lasix) 40 mg PO Q6HPRN PRN fluid 04/12/23
glucagon 3 mg/actuation nasal spray (Baqsimi) 3 mg intranasal DAILYPRN PRN severe hypoglycemia 04/12/23
insulin glargine 100 unit/mL (3 mL) subcutaneous pen (Lantus Solostar U-100 Insulin) 18 unit SC DAILY 04/12/23
levalbuterol HCl 0.63 mg/3 mL solution for nebulization 0.63 mg inhalation R Q8HPRN PRN sob 04/12/23
loperamide 2 mg tablet 2 mg PO Q6HPRN PRN diarrhea 04/12/23
polyethylene glycol 3350 17 gram oral powder packet (Miralax) 17 g PO DAILYPRN PRN constipation 04/12/23
sodium phosphates 19 gram-7 gram/118 mL enema (Fleet Enema) 118 ml MI DAILYPRN PRN constipation 04/12/23
valacyclovir 500 mg tablet 500 mg PO BID 04/12/23
clonazepam 1 mg tablet 1.5 mg PO HS Mental Health/Anxiety #1 tab 04/17/23
Home Medication Changes
Pending Results: No
--- NOTE | 2023-04-22 15:02 | CM ---
Patient has been medically cleared for discharge back to [facility]. This CM spoke with Chester RN to arrange for discharge. JENIFER RN gave report to Chester and advised that patient will need an O2 tank for transport. [facility] will provide transport
to home. This CM faxed records to [facility]. , .
== END 2023-04-22 15:08 | DRG 177 ==
LOC: 2 NORTH 22:51
PROVIDERS: Internal Medicine; Student in an Organized Health Care Education/Training Program; ADMITTING PHYSICIAN Internal Medicine; ATTENDING PHYSICIAN Internal Medicine; EMERGENCY PHYSICIAN Emergency Medicine; FAMILY PHYSICIAN Family Medicine; OTHER PHYSICIAN Otolaryngology Facial Plastic Surgery
PROC: 5A09357 Assistance with Respiratory Ventilation, Less than 24 Consecutive Hours, Continuous Positive Airway Pressure (ICD-10-PCS; 2023-04-15)
DX: J69.0 Pneumonitis due to inhalation of food and vomit (principal); J96.21 Acute and chronic respiratory failure with hypoxia; J44.0 Chronic obstructive pulmonary disease with (acute) lower respiratory infection; E03.9 Hypothyroidism, unspecified; E11.9 Type 2 diabetes mellitus without complications; E78.00 Pure hypercholesterolemia, unspecified; F25.0 Schizoaffective disorder, bipolar type; F60.3 Borderline personality disorder; I11.0 Hypertensive heart disease with heart failure; J20.9 Acute bronchitis, unspecified; H92.03 Otalgia, bilateral; R13.10 Dysphagia, unspecified; I27.20 Pulmonary hypertension, unspecified; M10.9 Gout, unspecified; M26.603 Bilateral temporomandibular joint disorder, unspecified; G47.63 Sleep related bruxism; K59.09 Other constipation; R62.50 Unspecified lack of expected normal physiological development in childhood; G47.33 Obstructive sleep apnea (adult) (pediatric); E66.09 Other obesity due to excess calories; Z91.51 Personal history of suicidal behavior; Z11.52 Encounter for screening for COVID-19; Z90.49 Acquired absence of other specified parts of digestive tract; Z99.81 Dependence on supplemental oxygen; Z79.890 Hormone replacement therapy; Z79.84 Long term (current) use of oral hypoglycemic drugs; Z79.51 Long term (current) use of inhaled steroids; Z88.1 Allergy status to other antibiotic agents; Z91.030 Bee allergy status; Z91.012 Allergy to eggs; Z88.5 Allergy status to narcotic agent; Z88.0 Allergy status to penicillin; Z91.013 Allergy to seafood; Z88.8 Allergy status to other drugs, medicaments and biological substances; Z91.018 Allergy to other foods; Z68.38 Body mass index [BMI] 38.0-38.9, adult
CPT/HCPCS: 71046; 80048; 80053; 82962; 83605; 83735; 83880; 84100; 84145; 84443; 84484; 85025; 85027; 87040; 87070; 87502; 87811; 92526; 92610; 93005; 94640; 94660; 94669; 96365; 97116; 97163; 97530; 99285

== ENCOUNTER 2023-05-01 12:59 | Emergency (ER) | payer OTHER, SELFPAY ==
[2023-05-01 13:01] VITALS: BP 120/74; BMI 38.2
[2023-05-01 13:04] VITALS: BP 120/74
[2023-05-01 13:45] LABS: COVID-19 Antigen Negative (Negative)
[2023-05-01 13:49] LABS: % Basophils 0.6 % (0-2); % Immature Granulocytes 3.8 % (0-0.5); % Lymphocytes 23.4 % (20.5-51.1); % Monocytes 9.5 % (1.7-9.3); % Neutrophils 43.7 % (42.2-75.2); Absolute Basophils 0.1 10^3/uL (0-0.2); Absolute Eosinophils 1.6 10^3/uL (0-0.7); Absolute Immature Granulocytes 0.3 10^3/uL (0-0.05); Absolute Lymphocytes 1.9 10^3/uL (1.2-3.4); Absolute Monocytes 0.8 10^3/uL (0.1-0.6); Absolute Neutrophils 3.6 10^3/uL (1.4-6.5); Hematocrit 34.2 % (37.0-47.0); Hemoglobin 11.6 g/dL (12.0-16.0); Mean Corp Hgb Conc. 33.9 g/dL (33.0-37.0); Mean Corpuscular Hgb 38.2 pg (27.0-31.0); Mean Corpuscular Volume 112.5 fL (81.0-99.0); Mean Platelet Volume 9.4 fL (7.4-10.4); Nucleated Red Blood Cells % 0 %; Platelet Count 189 10^3/uL (130-400); Red Blood Cell Count 3.04 10^6/uL (4.20-5.40); Red Cell Dist. Width 12.8 % (11.5-14.5); White Blood Cell Count 8.2 10^3/uL (4.8-10.8)
[2023-05-01 14:00] VITALS: BP 114/56
[2023-05-01 14:03] LABS: ALT (SGPT) 18 U/L (0-35); AST (SGOT) 32 U/L (14-36); Albumin 3.5 g/dl (3.5-5.0); Alkaline Phosphatase 53 U/L (38-126); Blood Urea Nitrogen 32 mg/dl (7-17); Calcium 9.5 mg/dl (8.4-10.2); Carbon Dioxide 38 mmol/L (22-30); Chloride 90 mmol/L (98-107); Estimated Creatinine Clearance 50 ml/min; Glucose 142 mg/dl (70-99); Potassium 4.5 mmol/L (3.5-5.1); Sodium 135 mmol/L (135-145); Total Bilirubin 0.5 mg/dl (0.2-1.3); eGFR 50.86
[2023-05-01 15:00] VITALS: BP 125/56
--- NOTE | 2023-05-01 15:46 | ED.GENMED ---
History of Present Illness
General
Chief Complaint: Breathing Problem
Time Seen by Provider: 05/01/23 13:26
Travel History
Have you had any contact with someone who has COVID-19?: No
Do you have any symptoms of coronavirus? Fever > 100 degrees, chills, cough, shortness of breath, sore throat, loss of taste or smell, muscle aches, or headache?: No
History of Present Illness
History of Present Illness:
63-year-old female presents from correction for evaluation of low oxygen. Patient is typically on 2 L nasal cannula oxygen they felt she was low at the correction. She was recently here for pneumonia. Patient denies chest pain. She notes a
slight cough. No recent fever. No other complaints at this time
Past History
Past History
ED Past Medical History: Asthma, COPD, HTN, Hypercholesterolemia, IDDM, Hypothyroidism, Psychiatric (Schizoaffective disorder, borderline personality disorder, major depressive disorder, suicide attempt) and Other (SBO,)
ED Past Surgical History: Appendectomy and Cholecystectomy
Social History
Tobacco: Non-smoker
Alcohol: None
Drug: None
Personal: Single
Living: other (correction)
Employment: Not employed
Family History
Family History: Unable to obtain
Phy Exam
Physical Exam
Physical Exam:
General: Well-appearing female nontoxic no acute respiratory distress
HEENT: Normocephalic atraumatic
Heart: Regular rate and rhythm no murmurs
Lungs: No obvious wheeze or rales
Extremities: No cyanosis or edema
Skin: Warm no rashes or lesions
Scores
Heart Failure Risk
Heart Failure Risk Score: Not Applicable
Course
Orders/Labs/Results
Orders:
Orders
05/01/23 13:23
COVID-19 Antigen Urgent
Source: Nasal Swab
Influenza A+B Rapid Molecular Urgent
BERNA[place]TE Source: Nasal Swab
Specimen Description:
05/01/23 13:35
CR Chest - 2 Views Urgent
Comment:
Reason For Exam: cough, sob
05/01/23 13:41
Complete Blood Count/With Diff Urgent
Comprehensive Metabolic Panel Urgent
Abnormal Lab Results
05/01/23
13:41
RBC 3.04 L 10^6/uL
(4.20-5.40)
Hgb 11.6 L g/dL
(12.0-16.0)
Hct 34.2 L %
(37.0-47.0)
MCV 112.5 H fL
(81.0-99.0)
MCH 38.2 H pg
(27.0-31.0)
Abs Immat Gran (auto) 0.3 H 10^3/uL
(0-0.05)
Absolute Monos (auto) 0.8 H 10^3/uL
(0.1-0.6)
Absolute Eos (auto) 1.6 H 10^3/uL
(0-0.7)
Immature Gran % 3.8 H %
(0-0.5)
Monocytes % 9.5 H %
(1.7-9.3)
Eosinophils % 19.0 H %
(0-6)
Chloride 90 L mmol/L
(98-107)
Carbon Dioxide 38 H mmol/L
(22-30)
BUN 32 H mg/dl
(7-17)
Creatinine 1.2 H mg/dL
(0.6-1.0)
Glucose 142 H mg/dl
(70-99)
Total Protein 6.0 L g/dl
(6.3-8.2)
05/01/23 13:41
05/01/23 13:41
Vital Signs
Initial and Last Documented VS:
Initial Vital Signs
Temp Pulse Resp BP Pulse Ox
97.4 F 86 16 120/74 96
05/01/23 13:01 05/01/23 13:01 05/01/23 13:01 05/01/23 13:01 05/01/23 13:01
Last Documented Vital Signs
Temp Pulse Resp BP Pulse Ox
97.4 F 94 33 125/56 94
05/01/23 13:01 05/01/23 15:30 05/01/23 15:30 05/01/23 15:00 05/01/23 15:30
MDM/Problems Addressed
Differential Diagnosis Includes:
Hypoxia noted at facility. Patient is on her baseline 2 L of oxygen here and not hypoxic without respiratory distress. Will check chest x-ray COVID flu and labs.
*Critical Care Note
Total Time (30-74mins, 75-104mins- exclusive of procedures): Not Applicable
Update Note
Update Note:
I am told that the facility was trying to place the patient into a rehab facility from the emergency room. During workup patient expressed her desire to go back to her correction. Chest x-ray is clear. She is not hypoxic. Labs otherwise are
without significant finding and COVID and flu are negative. No medical need for patient to stay in the hospital. Patient wishes to go her facility. We will arrange transport for this. Further can be made from the correction
ED Attending Note
-
Portions of this chart may have been created with voice recognition software.� Occasional wrong word or��sound alike� substitutions may have occurred due to the inherent limitations of voice recognition software.
Discharge Plan
Departure
Patient Disposition: Home (Routine Discharge)
Date of Disposition: 05/01/23
Time of Disposition: 15:48
Patient with high blood pressure during this ER visit?: No
Discharge Problem:
Cough
Instructions: Shortness of Breath (Dyspnea) (DC)
Prescriptions:
No Action
levothyroxine 75 MCG tablet
75 mcg PO DAILY
metformin 1,000 MG tablet
1,000 mg PO BID
allopurinol 300 MG tablet
300 mg PO DAILY
cholecalciferol (vitamin D3) 1,000 UNITS tablet
1,000 units PO DAILY
docusate sodium 100 MG capsule
100 mg PO BID 0RF
ondansetron HCl 4 MG tablet
4 mg PO Q8HPRN PRN (Reason: nausea)
acetaminophen 325 MG tablet
650 mg PO Q6HPRN PRN (Reason: mild pain)
olanzapine [Zyprexa] 10 mg Tablet
10 mg PO DAILY
melatonin 3 mg Tablet
6 mg PO HS
valproic acid 250 mg Capsule
500 mg PO DAILY
pravastatin 80 mg Tablet
80 mg PO DAILY
fluticasone propion-salmeterol [Advair Diskus] 100-50 mcg/dose Blister With Device
1 inh INHALATION R BID
Apidra SoloStar U-100 Insulin 100 unit/mL Insulin Pen
0 sliding scale dose SC QID PRN (Reason: blood sugar)
Patient Comments:
bs 150-200=2; 200-250=4; 250-300=6; 300-350=8; bs 350 and over call nbfp
dapagliflozin propanediol [Farxiga] 10 mg Tablet
10 mg PO DAILY
bisacodyl [OneLAX Bisacodyl] 10 MG suppository
10 mg ND DAILY PRN (Reason: if no bm by day)
valproic acid 250 mg Capsule
750 mg PO BID@1200,2000
fluoxetine [Prozac] 10 mg Capsule
20 mg PO DAILY
furosemide 40 MG tablet
40 mg PO DAILY
multivitamin with iron Tablet
1 tab PO DAILY
levalbuterol HCl 0.63 mg/3 mL Solution For Nebulization
0.63 mg INHALATION R Q8HPRN PRN (Reason: sob)
loperamide 2 mg Tablet
2 mg PO Q6HPRN PRN (Reason: diarrhea)
valacyclovir 500 mg Tablet
500 mg PO BID
benzonatate 100 mg Capsule
100 mg PO TIDPRN PRN (Reason: constipation)
Fleet Enema 19-7 gram/118 mL Enema
118 ml ND DAILYPRN PRN (Reason: constipation)
Debrox 6.5 % Drops
5 drp OTIC (EAR) BIDPRN PRN (Reason: clogged ear)
fluticasone propionate 50 mcg/actuation Bowden,Suspension
2 spray INTRANASAL DAILYPRN PRN (Reason: allergies)
ezetimibe [Zetia] 10 mg Tablet
10 mg PO DAILY
insulin glargine [Lantus Solostar U-100 Insulin] 100 unit/mL (3 mL) Insulin Pen
18 unit SC DAILY
Baqsimi 3 mg/actuation Bowden,Non-Aerosol
3 mg INTRANASAL DAILYPRN PRN (Reason: severe hypoglycemia )
albuterol sulfate [ProAir HFA] 90 mcg/actuation Hfa Aerosol Inhaler
2 puff INHALATION R Q6HPRN PRN (Reason: sob)
polyethylene glycol 3350 [Miralax] 17 gram powder in packet
17 g PO DAILYPRN PRN (Reason: constipation)
furosemide [Lasix] 20 mg tablet
40 mg PO Q6HPRN PRN (Reason: fluid)
clonazepam 1 mg Tablet
1.5 mg PO HS Qty: 1 0RF
Referrals:
UNKNOWN,NO INTERVIEW [Family Provider] -
Activity Restrictions/Additional Instructions:
Please, continue current medication regimen and administer oxygen if needed. Return if needed otherwise
Interventions
Interventions:
*Risk Screen - Suicide Last Done: 05/01/23 13:01
*General Assessment Last Done: 05/01/23 13:01
*Neglect/Abuse Screening Last Done: 05/01/23 13:01
ED- Fall Risk Assessment Last Done: 05/01/23 13:19
*ED COVID-19 Vaccine History Last Done: 05/01/23 13:01
ED- Cardiac Assessment Last Done: 05/01/23 13:19
ED- Pulmonary Assessment Last Done: 05/01/23 13:19
== END 2023-05-01 16:13 | disposition home or self-care (01) ==
LOC: EMR 12:59
PROVIDERS: Physician Assistant; EMERGENCY PHYSICIAN Emergency Medicine
DX: R05.9 Cough, unspecified (principal); R06.02 Shortness of breath; Z11.52 Encounter for screening for COVID-19; Z99.81 Dependence on supplemental oxygen
CPT/HCPCS: 99284; 71046; 80053; 85025; 87502; 87811

== ENCOUNTER → 2023-05-13 13:06 | Outpatient (REF) | payer OTHER, SELFPAY | LOC: RAD 13:06 | PROVIDERS: ATTENDING PHYSICIAN Family Medicine | DX: R05.1 Acute cough (principal) | CPT/HCPCS: 71046 ==

== ENCOUNTER → 2023-06-19 11:05 | Outpatient (REF) | payer OTHER, SELFPAY | LOC: RAD 11:05 | PROVIDERS: ATTENDING PHYSICIAN Family Medicine | DX: R05.1 Acute cough (principal) | CPT/HCPCS: 71046 ==

== ENCOUNTER 2023-07-26 01:52 | Inpatient (IN) | payer OTHER, SELFPAY ==
[2023-07-25 22:26] VITALS: BMI 39.1
[2023-07-25 22:40] VITALS: BP 143/59
[2023-07-25 22:50] LABS: % Basophils 0.3 % (0-2); % Eosinophils 5.3 % (0-6); % Lymphocytes 19.8 % (20.5-51.1); % Monocytes 9.7 % (1.7-9.3); % Neutrophils 62.9 % (42.2-75.2); Absolute Eosinophils 0.6 10^3/uL (0-0.7); Absolute Immature Granulocytes 0.2 10^3/uL (0-0.05); Absolute Lymphocytes 2.4 10^3/uL (1.2-3.4); Absolute Monocytes 1.2 10^3/uL (0.1-0.6); Absolute Neutrophils 7.6 10^3/uL (1.4-6.5); Hematocrit 33.1 % (37.0-47.0); Hemoglobin 11.4 g/dL (12.0-16.0); Mean Corp Hgb Conc. 34.4 g/dL (33.0-37.0); Mean Corpuscular Hgb 37.7 pg (27.0-31.0); Mean Corpuscular Volume 109.6 fL (81.0-99.0); Mean Platelet Volume 9.5 fL (7.4-10.4); Nucleated Red Blood Cells % 0 %; Platelet Count 203 10^3/uL (130-400); Red Blood Cell Count 3.02 10^6/uL (4.20-5.40); Red Cell Dist. Width 13.2 % (11.5-14.5); White Blood Cell Count 12.1 10^3/uL (4.8-10.8)
[2023-07-25 23:05] LABS: COVID-19 Antigen Negative (Negative)
[2023-07-25 23:06] LABS: ALT (SGPT) 16 U/L (0-35); AST (SGOT) 28 U/L (14-36); Albumin 3.6 g/dl (3.5-5.0); Alkaline Phosphatase 51 U/L (38-126); Blood Urea Nitrogen 36 mg/dl (7-17); Calcium 9.3 mg/dl (8.4-10.2); Chloride 88 mmol/L (98-107); Estimated Creatinine Clearance 67 ml/min; Glucose 123 mg/dl (70-99); Potassium 4.1 mmol/L (3.5-5.1); Sodium 136 mmol/L (135-145); Total Bilirubin 0.4 mg/dl (0.2-1.3); Total Protein 6.2 g/dl (6.3-8.2); eGFR > 60.00
--- NOTE | 2023-07-25 23:12 | ED.GENMED ---
History of Present Illness
General
Chief Complaint: Cough
Source: patient, care transitions nurse and [facility] records
Time Seen by Provider: 07/25/23 22:43
Nursing documentation reviewed up to this point in time: agreed with
Travel History
Have you had any contact with someone who has COVID-19?: No
Do you have any symptoms of coronavirus? Fever > 100 degrees, chills, cough, shortness of breath, sore throat, loss of taste or smell, muscle aches, or headache?: No
History of Present Illness
History of Present Illness:
Pleasant 63-year-old female that presents with productive wet sounding cough. This has been going on for 3 days. Patient lives in [facility]. She is normally on home oxygen 2 L via nasal cannula but it had to be increased to 6 L
tonight due to hypoxemia. She states that she has been feeling warm but her temperature is 98.9.
Vital signs are stable. Patient not hypoxic
Nursing note reviewed. I agree with nursing documentation up to this point in time.
Home Meds and allergies reviewed.
NUMBER AND COMPLEXITY OF PROBLEMS ADDRESSED AT THE ENCOUNTER
� Chronic conditions affecting care:
� Acute Exacerbation and/or Progression of Chronic Illness: COPD, CHF, chronic lower extremity edema. Multiple psychiatric elements including schizophrenia, bipolar, major depressive disorder, borderline personality disorder,
and suicide attempts.
� Differential Diagnosis includes: COPD exacerbation, CHF exacerbation, pneumonia
AMOUNT AND/OR COMPLEXITY OF DATA TO BE REVIEWED AND ANALYZED
I performed an independent evaluation of the following and my interpretation is:
EKG:
CT:
X-rays:
Ultrasound:
Laboratory Studies: White blood cell count is 12.1. glucose is 123, BUN is 36 with a creatinine of 0.9.
Other:
Review of other/old records: Previous discharge summary from 04/22/2023 shows acute on chronic hypoxia due to aspiration pneumonitis, dysphagia
Clinical information was obtained by an independent historian:
Prescriptions/Medications Considered but not given:
Further testing considered but not performed:
RISK OF COMPLICATIONS AND/OR MORBIDITY OR MORTALITY OF PATIENT MANAGEMENT
Social determinants of health affecting care: Good Social Support
Discussion with other providers:
Escalation of care including admission/observation vs risk of discharge considered:
CRITICAL CARE NOTE:
Total Time (exclusive of procedures):
Update:
Past History
Past History
ED Past Medical History: Asthma, COPD, HTN, Hypercholesterolemia, IDDM, Hypothyroidism, Psychiatric (Schizoaffective disorder, borderline personality disorder, major depressive disorder, suicide attempt) and Other (SBO,)
ED Past Surgical History: Appendectomy and Cholecystectomy
Social History
Tobacco: Non-smoker
Alcohol: None
Drug: None
Personal: Single
Living: other (halfway)
Employment: Not employed
Family History
Family History: Unable to obtain
Phy Exam
General Physical Exam
General Presentation: well appearing and mild distress
General age: appears stated age
General Skin: warm and dry
General Habitus: normal and obese
General Mental: alert
General Hydration: appears well hydrated
ENT Exam
ENT Exam: other (edentulous)
Eye Exam
Eye Exam: PERRL, cornea clear and conjunctiva normal
Cardiovascular Exam
Cardiovascular Exam: regular rate/rhythm, no edema, no murmur and normal peripheral pulses
Pulmonary Exam
Pulmonary Exam: generalized wheezing
Gastrointestinal Exam
Gastrointestinal Exam: normal bowel sounds, non tender, soft, no organomegaly, no pulsatile mass and non distended
Neurological Exam
Neurological Exam: alert, oriented x3, no motor deficits and speech normal
Musculoskeletal Exam
Musculoskeletal Exam: full ROM and no edema
Skin Exam
Skin Exam: normal color, warm/dry, no rash and no petechia
Psychiatric Exam
Psychiatric Exam: normal mood/affect
Scores
Heart Failure Risk
Heart Failure Risk Score: Not Applicable
History of Stroke or TIA: No
History of intubation for respiratory distress: No
Heart rate on ED arrival >/= 110: No
SaO2 <90% on arrival on room air: Yes
HR >/=110 during 3min walk test (or too ill to perform test): Yes
ECG has acute ischemic changes: No
Urea >/=12mmol/L (BUN 33.6mg/dL): No
Serum CO2>/=35mmol/L: Yes
Troponin I or T elevated to [place] Level (0.4mg/dL): No
NT-proBNP >/=5,000ng/L (5,000pg/ml): No
HF Risk Score: 5
Admission Status: VERY HIGH RISK 39.8% Consider admission to hospital
Course
Orders/Labs/Results
Orders:
Orders
07/25/23 22:31
Electrocardiogram (*1) Urgent
Reason for Study: Other
Other Reason for Exam: Respiratory Distress
EKG- Treatment ONCE
CR Chest - 2 Views Urgent
Comment:
Reason For Exam: respiratory distress
O2 Therapy [RESP] Urgent
Titrate/Wean O2 to maintain O2 sat greater than (%): 93
Special Instructions: TO MAINTAIN CONTINUOUS O2 SATS >/= 93%
07/25/23 22:39
COVID-19 Antigen Urgent
Source: Nasal Swab
Complete Blood Count/With Diff Urgent
Comprehensive Metabolic Panel Urgent
Influenza A+B Rapid Molecular Urgent
BER[place] Source: Nasal Swab
Specimen Description:
07/25/23 23:12
Electrocardiogram (*1) Urgent
Reason for Study: Shortness of Breath
EKG- Treatment ONCE
07/25/23 23:44
NT-proBNP Urgent
Troponin I Urgent
07/26/23 00:55
Furosemide [Lasix] 60 mg IV NOW STA
Abnormal Lab Results
07/25/23
22:39
WBC 12.1 H 10^3/uL
(4.8-10.8)
RBC 3.02 L 10^6/uL
(4.20-5.40)
Hgb 11.4 L g/dL
(12.0-16.0)
Hct 33.1 L %
(37.0-47.0)
MCV 109.6 H fL
(81.0-99.0)
MCH 37.7 H pg
(27.0-31.0)
Abs Immat Gran (auto) 0.2 H 10^3/uL
(0-0.05)
Absolute Neuts (auto) 7.6 H 10^3/uL
(1.4-6.5)
Absolute Monos (auto) 1.2 H 10^3/uL
(0.1-0.6)
Immature Gran % 2.0 H %
(0-0.5)
Lymphocytes % 19.8 L %
(20.5-51.1)
Monocytes % 9.7 H %
(1.7-9.3)
Chloride 88 L mmol/L
(98-107)
Carbon Dioxide 37 H mmol/L
(22-30)
BUN 36 H mg/dl
(7-17)
Glucose 123 H mg/dl
(70-99)
Total Protein 6.2 L g/dl
(6.3-8.2)
07/25/23 22:39
07/25/23 22:39
Vital Signs
Initial and Last Documented VS:
Initial Vital Signs
Temp
98.9 F
07/25/23 22:31
Last Documented Vital Signs
Temp Pulse Resp BP Pulse Ox
98.9 F 89 21 130/84 96
07/25/23 22:31 07/26/23 00:43 07/26/23 00:43 07/26/23 00:43 07/26/23 00:43
*Radiology
Radiology exam reviewed: radiology read reviewed
*Pulse Oximetry
Patient hypoxic: yes
*EKG
Interpreted by ED Provider?: Yes
EKG Intrepretation Date: 07/26/23
Interpretation: normal
Heart Rate: 98
Rate: normal
Rhythm: sinus
[place]: normal axis
Interval: normal interval
QRS Pattern: normal QRS
Ischemia: no ischemia
*Special Services Agent Interpretation
Rate: normal
Interpretation: normal
*Critical Care Note
Total Time (30-74mins, 75-104mins- exclusive of procedures): Not Applicable
ED Attending Note
-
Portions of this chart may have been created with voice recognition software.� Occasional wrong word or��sound alike� substitutions may have occurred due to the inherent limitations of voice recognition software.
Discharge Plan
Departure
Patient Disposition: Admit
Date of Disposition: 07/26/23
Time of Disposition: 01:25
Admit to: Telemetry
Presentation/result/management discussed w/ accepting MD/DO: Hospitalist
Condition: Fair
Discharge Problem:
CHF (congestive heart failure), Diabetes, Obesity, COPD (chronic obstructive pulmonary disease)
Prescriptions:
No Action
levothyroxine 75 MCG tablet
75 mcg PO DAILY
metformin 1,000 MG tablet
1,000 mg PO BID
allopurinol 300 MG tablet
300 mg PO DAILY
cholecalciferol (vitamin D3) 1,000 UNITS tablet
1,000 units PO DAILY
ondansetron HCl 4 MG tablet
4 mg PO Q8HPRN PRN (Reason: nausea)
acetaminophen 325 MG tablet
650 mg PO Q6HPRN PRN (Reason: mild pain)
olanzapine [Zyprexa] 10 mg Tablet
10 mg PO DAILY
melatonin 3 mg Tablet
6 mg PO HS
valproic acid 250 mg Capsule
500 mg PO DAILY
pravastatin 80 mg Tablet
80 mg PO DAILY
fluticasone propion-salmeterol [Advair Diskus] 100-50 mcg/dose Blister With Device
1 inh INHALATION R BID
Apidra SoloStar U-100 Insulin 100 unit/mL Insulin Pen
10 unit SC AC
dapagliflozin propanediol [Farxiga] 10 mg Tablet
10 mg PO DAILY
valproic acid 250 mg Capsule
750 mg PO BID@1200,2000
fluoxetine [Prozac] 10 mg Capsule
20 mg PO DAILY
furosemide 40 MG tablet
40 mg PO DAILY
multivitamin with iron Tablet
1 tab PO DAILY
loperamide 2 mg Tablet
2 mg PO Q6HPRN PRN (Reason: diarrhea)
valacyclovir 500 mg Tablet
500 mg PO BID
benzonatate 100 mg Capsule
100 mg PO TIDPRN PRN (Reason: constipation)
ezetimibe [Zetia] 10 mg Tablet
10 mg PO DAILY
insulin glargine [Lantus Solostar U-100 Insulin] 100 unit/mL (3 mL) Insulin Pen
18 unit SC DAILY
Baqsimi 3 mg/actuation [place],Non-Aerosol
3 mg INTRANASAL DAILYPRN PRN (Reason: severe hypoglycemia )
polyethylene glycol 3350 [Miralax] 17 gram powder in packet
17 g PO DAILYPRN PRN (Reason: constipation)
furosemide [Lasix] 20 mg tablet
40 mg PO Q6HPRN PRN (Reason: fluid)
clonazepam 1 mg Tablet
1.5 mg PO HS Qty: 1 0RF
trazodone 100 mg Tablet
125 mg PO HS
docusate sodium 100 mg Capsule
100 mg PO BID
guaifenesin [Mucinex] 600 mg Tablet Extended Release 12hr
1,200 mg PO Q12H PRN (Reason: congestion)
Referrals:
Shimon Cleary, DO [Family Provider] -
Interventions
Interventions:
*Risk Screen - Suicide Last Done: 07/25/23 22:26
*General Assessment Last Done: 07/25/23 22:26
*Neglect/Abuse Screening Last Done: 07/25/23 22:26
*ED COVID-19 Vaccine History Last Done: 07/25/23 22:26
ED- Pulmonary Assessment Last Done: 07/25/23 22:26
Discharge Date and Time
Print Language: TAJIK
[2023-07-25 23:19] LABS: Carbon Dioxide 37 mmol/L (22-30)
[2023-07-25 23:47] VITALS: BP 142/69
[2023-07-26] VITALS (8 sets, daily range): BP systolic 119–149; BP diastolic 57–84; BMI 36.7
[2023-07-26 00:16] LABS: NT-proBNP 588 pg/ml; Troponin I < 0.012 ng/ml
[2023-07-26] MEDS: LASIX 60 MG IV (01:25)
--- NOTE | 2023-07-26 01:40 | HPS.HSE ---
Family Physician
-
Family Physician: Shimon Cleary
Chief Complaint
-
Cough / SOB
History of Present Illness
Patient is a 63y F with PMH significant for schizophrenia, DM-II and COPD who presents to ED complaining of cough and SOB. Patient presents from local intermediate for mental health [facility] ([facility]). She was reportedly noted
to have cough x several days with increasing O2 requirements. She is typically on 2 lpm of supplemental O2 at baseline. She is currently requiring 6 lpm to maintain adequate saturations.
Patient reports non-productive cough / 'bad cold' symptoms for the past 2 weeks or so. She denies any mucus production, chest pain, fevers / chills, etc.
She denies any ankle swelling, GI or symptoms, etc.
Medical History
Past Medical History
Past Medical History: Reports Other
Additional Past Medical History:
Bipolar Disorder / Schizophrenia
DM-II
Hypertension
Hypothyroidism
Obesity
COPD / Asthma
Anemia of Chronic Disease
GERD
Chronic HFpEF
Past Surgical History: Reports Other
Additional Past Surgical History:
Appendectomy
Cholecystectomy
Social History
Tobacco: Non-smoker
Alcohol: None
Drug: None
Living: Other ([facility])
Family History
Family History: Not pertinent
Allergies / Home Medications
Allergies reflects when Allergies were last updated in [employer].
Home Medications with original date entered in [facility]
Allergy/Medication List:
Allergies
Allergy/AdvReac Type Severity Reaction Status Date / Time
bee venom protein (honey bee) Allergy Unknown Verified 05/01/23 13:19
benzonatate Allergy Rash Verified 04/12/23 17:57
[From Nik Nielsen]
codeine Allergy Unknown Verified 05/01/23 13:19
egg Allergy Unknown Verified 05/01/23 13:19
fluphenazine [From Prolixin] Allergy Unknown Verified 05/01/23 13:19
haloperidol [From Haldol] Allergy Unknown Verified 05/01/23 13:19
hydroxychloroquine Allergy Unknown Verified 05/01/23 13:19
[From Plaquenil]
Influenza Virus Vaccines Allergy Unknown Verified 05/01/23 13:19
iodine Allergy Unknown Verified 05/01/23 13:19
Penicillins Allergy unknown; Verified 05/01/23 13:19
tolerated
cephalexin
June 2020
shellfish derived Allergy Unknown Verified 05/01/23 13:19
Sulfa (Sulfonamide Allergy Unknown Verified 05/01/23 13:19
Antibiotics)
tomato Allergy Unknown Verified 05/01/23 13:19
Home Medications
allopurinol 300 mg tablet 300 mg PO DAILY Gout 06/08/20
cholecalciferol (vitamin D3) 25 mcg (1,000 unit) tablet 1,000 units PO DAILY Supplement 06/08/20
levothyroxine 75 mcg tablet 75 mcg PO DAILY Thyroid 06/08/20
metformin 1,000 mg tablet 1,000 mg PO BID Diabetes 06/08/20
ondansetron HCl 4 mg tablet 4 mg PO Q8HPRN PRN nausea 05/04/21
acetaminophen 325 mg tablet 650 mg PO Q6HPRN PRN mild pain 05/28/21
dapagliflozin propanediol 10 mg tablet (Farxiga) 10 mg PO DAILY Diabetes 09/13/21
fluticasone 100 mcg-salmeterol 50 mcg/dose blistr powdr for inhalation (Advair Diskus) 1 inh inhalation R BID Lung/breathing issues 09/13/21
insulin glulisine U-100 100 unit/mL subcutaneous pen (Apidra SoloStar U-100 Insulin) 10 unit SC AC 09/13/21
melatonin 3 mg tablet 6 mg PO HS Sleep 09/13/21
olanzapine 10 mg tablet (Zyprexa) 10 mg PO DAILY Mental Health/Anxiety 09/13/21
pravastatin 80 mg tablet 80 mg PO DAILY High cholesterol 09/13/21
valproic acid 250 mg capsule 500 mg PO DAILY Mental Health/Anxiety 09/13/21
fluoxetine 10 mg capsule (Prozac) 20 mg PO DAILY Depression 02/07/22
valproic acid 250 mg capsule 750 mg PO BID@1200,2000 Seizures 02/07/22
furosemide 40 mg tablet 40 mg PO DAILY Fluid retention/Swelling 02/08/22
multivitamin with iron 1 tab PO DAILY 07/08/22
benzonatate 100 mg capsule 100 mg PO TIDPRN PRN constipation 04/12/23
ezetimibe 10 mg tablet (Zetia) 10 mg PO DAILY 04/12/23
furosemide 20 mg tablet (Lasix) 40 mg PO Q6HPRN PRN fluid 04/12/23
glucagon 3 mg/actuation nasal spray (Baqsimi) 3 mg intranasal DAILYPRN PRN severe hypoglycemia 04/12/23
insulin glargine 100 unit/mL (3 mL) subcutaneous pen (Lantus Solostar U-100 Insulin) 18 unit SC DAILY 04/12/23
loperamide 2 mg tablet 2 mg PO Q6HPRN PRN diarrhea 04/12/23
polyethylene glycol 3350 17 gram oral powder packet (Miralax) 17 g PO DAILYPRN PRN constipation 04/12/23
valacyclovir 500 mg tablet 500 mg PO BID 04/12/23
clonazepam 1 mg tablet 1.5 mg (1.5 x 1 mg) PO HS Mental Health/Anxiety #1 tab 04/17/23
docusate sodium 100 mg capsule 100 mg PO BID 07/26/23
guaifenesin 600 mg tablet, extended release 12 hr (Mucinex) 1,200 mg PO Q12H PRN congestion 07/26/23
trazodone 100 mg tablet 125 mg PO HS 07/26/23
Review of Systems
-
History Source: Patient
A 12 point ROS was completed and negative except as noted: Yes
Constitutional: Denies Fever or Chills
EENT: Denies Sore Throat
Respiratory: Reports Cough and Trouble Breathing
Cardiac: Denies Chest Pain or Palpitations
Abdomen/GI: Denies Abdominal Pain, Nausea, Vomiting or Diarrhea
: Denies Dysuria, Frequency or Flank Pain
Neurological: Denies Dizzy or Headache
Psych: Denies Depression or Anxiety
Physical Exam
Vital Signs
Vital Signs
Temp Pulse Resp BP Pulse Ox
98.9 F 89 21 130/84 96
07/25/23 22:31 07/26/23 00:43 07/26/23 00:43 07/26/23 00:43 07/26/23 00:43
Physical Exam
General: Other (63y F in no acute distress.)
HEENT: Moist mucous membranes, PERRLA and Other (thick neck, crowded oropharynx)
Respiratory: Other (Decreased at baseline - otherwise clear.)
Cardiac: S1/S2 and Regular Rhythm; No Murmur
GI: Soft, Non Tender, Non Distended and Normal Bowel Sounds
Musculoskeletal: No Clubbing, No Cyanosis and Other (Trace ankle edema bilaterally.)
Neuro: AO x 3
Laboratory Results
-
07/25/23 22:39
07/25/23 22:39
Laboratory Results
Total Bilirubin 0.4 mg/dl (0.2-1.3) 07/25/23 22:39
AST 28 U/L (14-36) 07/25/23 22:39
ALT 16 U/L (0-35) 07/25/23 22:39
Alkaline Phosphatase 51 U/L (38-126) 07/25/23 22:39
Troponin I < 0.012 ng/ml 07/25/23 23:44
Impression/Plan
-
A/P: Patient is a 63y F with PMH significant for schizophrenia, DM-II and COPD who presents to ED complaining of cough and SOB.
Acute on Chronic Hypoxemic Respiratory Insufficiency
- Admit for further evaluation and treatment.
- Etiology of worsened hypoxemia is not entirely clear.
- ? mild pulmonary edema / CHF.
- ? aspiration event / pneumonitis.
- ? other.
- Treat individual issues as noted below.
- Continue supplemental O2.
- Titrate as needed (baseline prior was 2lpm).
Subacute / Chronic HFpEF
- Patient received an extra dose of Lasix on 07/21 for weight gain of 3 lbs in one day.
- Weight has remained stable since that time.
- BNP minimally elevated from prior (288 to 588).
- Trace edema on exam.
- Will continue with daily IV Lasix for now and follow I/Os, daily weights, etc.
- Follow for impact on cough, dyspnea, hypoxemia.
COPD without Acute Exacerbation
Acute Bronchitis
- No active wheezing appreciated on exam, but cough x 2 weeks and increased dyspnea.
- Inhaled corticosteroids, nebs, etc.
- Doxycycline PO for now and follow for clinical improvement.
Aspiration Risk
- Patient with prior determination of swallow dysfunction and aspiration risk.
- She is admittedly reluctant to follow modified diets / recommendations.
- Aspiration precautions.
- Speech evaluation - follow recommendations.
Schizoaffective Disorder
- Stable. No current agitation / acute mood changes.
- Continue current psychotropic med regimen.
- Follow for any new / worsening symptoms.
Benign Hypertension
�- Stable.� Continue home med regimen.
DM-II
�- Stable.� Continue outpatient metformin / Farxiga.
- Continue basal : bolus insulin regimen.
�- SSI coverage as needed.
- Update A1C.
Hypothyroidism
�- Stable.� Continue home T4 supplementation.
Obesity due to excess calories and insulin resistance.
�- Affects all aspects of care.
�- Encourage healthy diet and increased activity with goal of weight loss.
DVT Prophylaxis:� Lovenox
Code Status:� Full
--- NOTE | 2023-07-26 03:00 | PTCARENOTE ---
Rc'd patient from ED. Stable vitals. No c/o any pain. AAOx3. Walked from to bed with one assist/ RW. on 5L n/c-93%. SR in 90s on tele. POC reviewed with patient. will continue to monitor.
[2023-07-26] MEDS: SYNTHROID 75 MCG PO (05:03)
[2023-07-26 05:44] LABS: Hematocrit 35.2 % (37.0-47.0); Hemoglobin 11.5 g/dL (12.0-16.0); Mean Corp Hgb Conc. 32.7 g/dL (33.0-37.0); Mean Corpuscular Hgb 37.2 pg (27.0-31.0); Mean Corpuscular Volume 113.9 fL (81.0-99.0); Mean Platelet Volume 9.5 fL (7.4-10.4); Platelet Count 188 10^3/uL (130-400); Red Blood Cell Count 3.09 10^6/uL (4.20-5.40); Red Cell Dist. Width 13.2 % (11.5-14.5); White Blood Cell Count 12.7 10^3/uL (4.8-10.8)
[2023-07-26 06:38] LABS: Blood Urea Nitrogen 32 mg/dl (7-17); Calcium 9.3 mg/dl (8.4-10.2); Chloride 90 mmol/L (98-107); Estimated Creatinine Clearance 65 ml/min; Glucose 140 mg/dl (70-99); Potassium 3.8 mmol/L (3.5-5.1); Sodium 140 mmol/L (135-145); eGFR > 60.00
[2023-07-26 06:49] LABS: Carbon Dioxide 37 mmol/L (22-30)
[2023-07-26 07:05] LABS: TSH Reflex To Free T4 2.85 uIU/ml (0.47-4.68)
[2023-07-26 07:32] LABS: Glucose - Point of Care 138 mg/dl (70-99)
[2023-07-26] MEDS: PULMICORT 0.5 MG INH ×2 (07:33→19:45)
[2023-07-26] MEDS: DUONEB 3 ML INH ×4 (07:33→19:44)
[2023-07-26] MEDS: NOVOLOG FLEXPEN-MODERATE RESISTANCE SC ×2 (09:03→18:06)
[2023-07-26] MEDS: COLACE 100 MG PO ×2 (09:07→21:31)
[2023-07-26] MEDS: DEPAKENE 500 MG PO (09:07)
[2023-07-26] MEDS: MUCINEX 1200 MG PO ×2 (09:08→21:33)
[2023-07-26] MEDS: GLUCOPHAGE 1000 MG PO ×2 (09:08→18:12)
[2023-07-26] MEDS: FARXIGA 10 MG PO (09:08)
[2023-07-26] MEDS: LASIX 40 MG IV (09:08)
[2023-07-26] MEDS: PROZAC 20 MG PO (09:09)
[2023-07-26] MEDS: PRAVACHOL 80 MG PO (09:09)
[2023-07-26] MEDS: PROTONIX 40 MG PO (09:09)
[2023-07-26] MEDS: VALTREX 500 MG PO ×2 (09:09→21:33)
[2023-07-26] MEDS: ZYLOPRIM 300 MG PO (09:10)
[2023-07-26] MEDS: ZYPREXA 10 MG PO (09:10)
[2023-07-26] MEDS: NOVOLOG FLEXPEN 10 UNITS SC ×2 (09:10→18:05)
[2023-07-26] MEDS: VIBRAMYCIN 100 MG PO ×2 (09:10→21:34)
[2023-07-26] MEDS: LANTUS 0.179999999999999993 UNITS SC (09:13)
[2023-07-26 09:38] LABS: Glycohemoglobin (HgbA1c) 6.7 % (4.0-5.6)
[2023-07-26 12:18] LABS: Glucose - Point of Care 181 mg/dl (70-99)
[2023-07-26] MEDS: STERILE WATER FOR INJECTION 10 ML IV (12:55)
[2023-07-26] MEDS: DEPAKENE 750 MG PO ×2 (12:55→21:32)
[2023-07-26] MEDS: ROCEPHIN 1000 MG IV (12:55)
[2023-07-26] MEDS: NOVOLOG FLEXPEN-MODERATE RESISTANCE 1 UNITS SC (13:08)
--- NOTE | 2023-07-26 14:30 | PTCARENOTE ---
Pt drowsy and lethargic. Arousable to tactile stimuli. Unable to stay alert for conversation. Pupils minimally reactive. Dr. Chavez notified and saw pt at bedside. ABG ordered.
--- NOTE | 2023-07-26 14:35 | W.PN.UPDATE ---
Addendum entered and electronically signed by Bora Chavez MD 07/26/23 15:13:
ABG showing pH 7.45 and pCO2 65. compensated chronic hypercapnic respiratory failure. no indication of bipap.
Original Note:
Update Note
Progress Note Update
Nonbillable note
Acute TME-likely polypharmacy induced. Patient on Depakote/clonazepam/trazodone/olanzapine. Waking up on deep stimulation although falling asleep. Check ABG to rule out CO2 narcosis. No focal symptoms suggestive of any ongoing central issues.
Acute on chronic hypoxic respiratory failure, presumed aspiration pneumonitis - lung examination relatively clear. Less likely COPD flareup. Minimal leukocytosis and bilateral compression atelectasis, favoring a short trial of antibiotics as
patient have history of aspiration and not following diet restriction. Of note patient have declined to be evaluated by speech therapist today.
Acute on chronic diastolic heart exacerbation - difficult volume assessment with body habitus no clear baseline weight assessment. Chest x-ray questioning mild heart failure exacerbation. Maintained on IV Lasix 40 mg daily. f/u weight/cr
[2023-07-26] MEDS: NOVOLOG FLEXPEN SC (14:41)
--- NOTE | 2023-07-26 14:46 | CM ---
Attempted to speak with pt at bedside - sleeping and unable to arouse
Pt lives in a [facility] - [facility] [phone]
Called facility and spoke with Chester - reported she was an RN
Reports pt at baseline uses O2 - 2L 01/10
Ambulates with a rolling walker. Able tp perform most ADL's with prompting
Facility would be receptive to home PT if recommended
Facility can provide transport back when pt is medically ready
PCP = Dr Cornelio Cleary
Pharm - [facility]
CM will follow for d/c needs
Plan - anticipate return to facility when medically ready
[2023-07-26 14:52] LABS: B.E. 18.1 mmol/L; O2 Saturation % 98.5 % (94-98); PCO2 65 mmHg (32-35); PO2 90 mmHg (83-108); pH 7.45 (7.35-7.45)
[2023-07-26 14:59] LABS: HCO3 45.2 mmol/L (21-28)
[2023-07-26 16:48] LABS: Glucose - Point of Care 119 mg/dl (70-99)
--- NOTE | 2023-07-26 17:00 | PTCARENOTE ---
Pt now alert and asking for dinner. Pt able to stay awake and hold conversation.
[2023-07-26] MEDS: LOVENOX 40 MG SC (18:06)
[2023-07-26 21:16] LABS: Glucose - Point of Care 140 mg/dl (70-99)
--- NOTE | 2023-07-26 23:27 | PTCARENOTE ---
Patient c/o chest pain, could not rate. EKG showed Sinus tachycardia, HR 103. Patient stated chest pain is getting better. House provider notified.
[2023-07-26] MEDS: TYLENOL 650 MG PO (23:52)
--- NOTE | 2023-07-26 23:56 | W.PN.UPDATE ---
Update Note
Progress Note Update
Reported by the nursing staff that the patient complained of chest pain. BP 134/68, hr 105, RR 20, SPo2 91% on 2 L of O2, temp 99.9. Went to the patient`s room to assess the patient, she was sleeping, patient denied any pain and went back to sleep.
Lab was ordered but the patient refused multiple times.
EKG done that shows sinus tachycardia with hr of 105, Tylenol was given and patient`s hr down to 90s.
-Patient continue to refuse blood work.
--- NOTE | 2023-07-27 01:55 | PTCARENOTE ---
Multiple attempts made to obtain stat labs. Patient refused and would not allow labs to be collected. House provider notified.
[2023-07-27 03:00] VITALS: BP 117/53
[2023-07-27] MEDS: SYNTHROID 75 MCG PO (06:03)
--- NOTE | 2023-07-27 06:26 | PTCARENOTE ---
Weight was not recorded for patient because they refused.
[2023-07-27] MEDS: DUONEB 3 ML INH ×4 (06:40→19:49)
[2023-07-27] MEDS: PULMICORT 0.5 MG INH ×2 (06:40→19:50)
[2023-07-27 08:09] LABS: Hematocrit 36.4 % (37.0-47.0); Hemoglobin 11.9 g/dL (12.0-16.0); Mean Corp Hgb Conc. 32.7 g/dL (33.0-37.0); Mean Corpuscular Hgb 37.7 pg (27.0-31.0); Mean Corpuscular Volume 115.2 fL (81.0-99.0); Mean Platelet Volume 9.4 fL (7.4-10.4); Platelet Count 166 10^3/uL (130-400); Red Blood Cell Count 3.16 10^6/uL (4.20-5.40); Red Cell Dist. Width 13.2 % (11.5-14.5); White Blood Cell Count 10.5 10^3/uL (4.8-10.8)
[2023-07-27 08:15] VITALS: BP 141/54
[2023-07-27 08:15] LABS: Glucose - Point of Care 146 mg/dl (70-99)
[2023-07-27 08:39] LABS: Blood Urea Nitrogen 29 mg/dl (7-17); Calcium 9.2 mg/dl (8.4-10.2); Chloride 91 mmol/L (98-107); Estimated Creatinine Clearance 65 ml/min; Glucose 137 mg/dl (70-99); Potassium 3.9 mmol/L (3.5-5.1); Sodium 142 mmol/L (135-145); eGFR > 60.00
[2023-07-27 08:57] LABS: Carbon Dioxide 39 mmol/L (22-30)
[2023-07-27] MEDS: NOVOLOG FLEXPEN-MODERATE RESISTANCE SC (09:11)
[2023-07-27] MEDS: PROTONIX 40 MG PO (10:41)
[2023-07-27] MEDS: GLUCOPHAGE 1000 MG PO ×2 (10:41→18:17)
[2023-07-27] MEDS: ZYLOPRIM 300 MG PO (10:41)
[2023-07-27] MEDS: FARXIGA 10 MG PO (10:41)
[2023-07-27] MEDS: PRAVACHOL 80 MG PO (10:42)
[2023-07-27] MEDS: NOVOLOG FLEXPEN 10 UNITS SC ×3 (10:42→18:16)
[2023-07-27] MEDS: COLACE 100 MG PO ×2 (10:42→20:50)
[2023-07-27] MEDS: VALTREX 500 MG PO ×2 (10:42→20:53)
[2023-07-27] MEDS: VIBRAMYCIN 100 MG PO ×2 (10:46→20:53)
[2023-07-27] MEDS: DEPAKENE 500 MG PO (10:46)
[2023-07-27] MEDS: MUCINEX 1200 MG PO ×2 (10:46→20:52)
[2023-07-27] MEDS: LANTUS 0.179999999999999993 UNITS SC (10:47)
[2023-07-27] MEDS: PROZAC 20 MG PO (10:47)
[2023-07-27] MEDS: LASIX 40 MG IV (10:47)
[2023-07-27] MEDS: FLUSH (NSS) 2 FLUSH IV (10:49)
[2023-07-27 11:11] VITALS: BP 145/80
[2023-07-27 12:02] LABS: Glucose - Point of Care 180 mg/dl (70-99)
[2023-07-27] MEDS: ROCEPHIN 1000 MG IV (12:06)
[2023-07-27] MEDS: STERILE WATER FOR INJECTION 10 ML IV (12:06)
--- NOTE | 2023-07-27 12:08 | W.PN.UPDATE ---
Update Note
Progress Note Update
Asked to review psychotropic medications on this 63 yo lady who was admitted for cough and increased need for supplemental oxygen. She is a very poor historian ; she told me she feels depressed as she is in hospital but would not go any further
other than very occasionally answer yes or no or would shake her head. She lives in [facility] which a residential living facility for individuals with chronic mental illness.
She denies hopelessness or suicidal thoughts but admits to dysphoria and anhedonia. She denies present hallucinations but had psychotic symptoms in the past.
Her home medications were Prozac 20 mg od, Zyprexa 10 mg od, Trazodone 125 hs, Depakote 500 od, 750 at 12N and 750 hs, Ativan 2mg tid prn and Klonopin 1.5 hs. Presently Trazodone was stopped as was the Ativan, Klonopin was changed to prn hs only.
Patient is not agitated, slightly anxious. Not acutely psychotic, not responding to internal stimuli. 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 I thing likely her diagnosis is chronic
undifferentiated schizophrenia.
For now I would order the Depakote level but otherwise continue current psychotropic meds, hopefully she will not need the BZD's and Trazodone.
Will F/U.
[2023-07-27] MEDS: NOVOLOG FLEXPEN-MODERATE RESISTANCE 1 UNITS SC ×2 (12:10→18:17)
--- NOTE | 2023-07-27 13:00 | W.PN.HOSP.TC ---
Today's Communication/Plan
-
Continue to antibiotics
Continue holding psychoactive meds, see note
check Depakote level
Assessment / Plan
Assessment / Plan
Patient is a 63y F with PMH significant for schizophrenia, DM-II and COPD who presents to ED complaining of cough and SOB.
Acute on Chronic Hypoxemic Respiratory Insufficiency
Presumed aspiration pneumonitis vs acute bronchitis
-Patient with known history of dysphagia/aspiration risk although remains adamant about not following any diet restriction.
-Patient declined to be seen by speech therapy as well
-Lung exam relatively clear except some rhonchi.
-Maintain on empiric Rocephin and doxycycline
-Oxygen requirement is came back to 2 L through nasal cannula
Acute on chronic diastolic congestive heart failure
-Chest x-ray questioning mild pulmonary edema/CHF
-Patient got IV Lasix in ER continue oral Lasix home dose 40 mg daily
-Follow weight and creatinine
Acute toxic metabolic encephalopathy
-Secondary to polypharmacy with Klonopin/Zyprexa/Ativan/trazodone
-Patient on valproate as mood stabilizer, level being checked
-Psychiatry asked to help as well.
Tardive dyskinesia
Schizoaffective disorder
-Tardive dyskinesia likely from long-term antipsychotic need
-Continue home dose of Depakote, check levels
Benign Hypertension
�- Stable.� Continue home med regimen.
DM-II
�- Stable.� Continue outpatient metformin / Farxiga.
- Continue basal : bolus insulin regimen.
�- SSI coverage as needed.
- hbga1c of 6.7
Hypothyroidism
�- Stable.� Continue home T4 supplementation.
Obesity due to excess calories and insulin resistance.
�- Affects all aspects of care.
�- Encourage healthy diet and increased activity with goal of weight loss.
DVT Prophylaxis:� Lovenox
Code Status:� Full
Anticipated Discharge: 24 - 48 hours
Subjective/Interval History
-
Date of Service: July 27, 2023
Oxygen requirement down
Afebrile in the night
some productive cough
Objective Data
-
Labs:
Laboratory Results
07/26/23 07/27/23
23:55 08:00
WBC Cancelled 10.5
Hgb Cancelled 11.9 L
Hct Cancelled 36.4 L
Plt Count Cancelled 166
Sodium Cancelled 142
Potassium Cancelled 3.9
Chloride Cancelled 91 L
Carbon Dioxide Cancelled 39 H
BUN Cancelled 29 H
Creatinine Cancelled 0.9
Glucose Cancelled 137 H
Calcium Cancelled 9.2
Vital Signs:
Vital Signs
Temp Pulse Resp BP Pulse Ox
98.7 F 97 16 145/80 93
07/27/23 11:11 07/27/23 11:27 07/27/23 11:27 07/27/23 11:11 07/27/23 11:27
I&O
07/26/23 07/27/23 07/28/23
06:59 06:59 06:59
Intake Total 180 / 180 360 / 360
Output Total 150 / 150
Balance 30 / 30 360 / 360
Review of Systems
-
Unable to obtain full review of systems at this time due to: Dementia
Physical Exam
-
General: Conversant, Obese and Other (developmental delay)
HEENT: Oxygen (2L NC)
Respiratory: Rhonchi
Cardiac: Regular Rhythm and S1/S2; Negative Murmur
GI: Soft, Nontender and Nondistended
Neuro: Awake, Alert and No Motor Deficits
Psych: Calm
[2023-07-27] MEDS: DEPAKENE 750 MG PO ×2 (13:29→20:50)
[2023-07-27 15:47] VITALS: BP 159/72
[2023-07-27 16:58] LABS: Glucose - Point of Care 191 mg/dl (70-99)
[2023-07-27] MEDS: LOVENOX 40 MG SC (18:17)
[2023-07-27] MEDS: TYLENOL 650 MG PO (18:20)
[2023-07-27 19:00] VITALS: BP 138/66
[2023-07-27 21:29] LABS: Glucose - Point of Care 82 mg/dl (70-99)
[2023-07-27 23:00] VITALS: BP 129/61
[2023-07-28] MEDS: TYLENOL 650 MG PO (02:52)
[2023-07-28 03:00] VITALS: BP 148/65
[2023-07-28] MEDS: SYNTHROID 75 MCG PO (05:50)
[2023-07-28 06:00] VITALS: BMI 35.5
[2023-07-28 07:00] VITALS: BP 115/45; BP 97/64; PULSE 89; PULSE 94
[2023-07-28] MEDS: DUONEB 3 ML INH ×4 (07:36→20:13)
[2023-07-28] MEDS: PULMICORT 0.5 MG INH ×2 (07:36→20:13)
[2023-07-28 07:50] LABS: Hematocrit 34.8 % (37.0-47.0); Hemoglobin 11.6 g/dL (12.0-16.0); Mean Corp Hgb Conc. 33.3 g/dL (33.0-37.0); Mean Corpuscular Volume 114.1 fL (81.0-99.0); Mean Platelet Volume 9.4 fL (7.4-10.4); Platelet Count 172 10^3/uL (130-400); Red Blood Cell Count 3.05 10^6/uL (4.20-5.40); Red Cell Dist. Width 13.2 % (11.5-14.5); White Blood Cell Count 12.3 10^3/uL (4.8-10.8)
[2023-07-28 07:58] LABS: Depakane 118.1 ug/ml (50.0-120.0)
[2023-07-28] MEDS: VIBRAMYCIN 100 MG PO ×2 (08:04→21:17)
[2023-07-28] MEDS: MUCINEX 1200 MG PO ×2 (08:04→21:17)
[2023-07-28] MEDS: PRAVACHOL 80 MG PO (08:04)
[2023-07-28] MEDS: PROTONIX 40 MG PO (08:04)
[2023-07-28] MEDS: FARXIGA 10 MG PO (08:04)
[2023-07-28] MEDS: VALTREX 500 MG PO ×2 (08:04→21:18)
[2023-07-28] MEDS: ZYLOPRIM 300 MG PO (08:05)
[2023-07-28] MEDS: GLUCOPHAGE 1000 MG PO ×2 (08:05→18:03)
[2023-07-28] MEDS: PROZAC 20 MG PO (08:05)
[2023-07-28] MEDS: DEPAKENE 500 MG PO ×2 (08:05→21:17)
[2023-07-28] MEDS: COLACE 100 MG PO ×2 (08:05→21:18)
[2023-07-28 08:13] LABS: Blood Urea Nitrogen 34 mg/dl (7-17); Calcium 9.4 mg/dl (8.4-10.2); Chloride 91 mmol/L (98-107); Estimated Creatinine Clearance 63 ml/min; Glucose 141 mg/dl (70-99); Potassium 4.2 mmol/L (3.5-5.1); Sodium 143 mmol/L (135-145); eGFR > 60.00
[2023-07-28 08:14] LABS: Glucose - Point of Care 152 mg/dl (70-99)
[2023-07-28] MEDS: LASIX 40 MG IV (08:14)
[2023-07-28 08:23] LABS: Carbon Dioxide 42 mmol/L (22-30)
[2023-07-28] MEDS: NOVOLOG FLEXPEN-MODERATE RESISTANCE SC ×3 (11:11→17:25)
[2023-07-28] MEDS: NOVOLOG FLEXPEN SC (11:11)
[2023-07-28 11:46] LABS: Glucose - Point of Care 118 mg/dl (70-99)
[2023-07-28 12:00] VITALS: BP 143/69
--- NOTE | 2023-07-28 12:17 | W.PN.HOSP.TC ---
Today's Communication/Plan
-
continue abx
continue IV lasix
check EKG/trop
Assessment / Plan
Assessment / Plan
Patient is a 63y F with PMH significant for schizophrenia, DM-II and COPD who presents to ED complaining of cough and SOB.
Acute on Chronic Hypoxemic Respiratory Insufficiency
Presumed aspiration pneumonitis vs acute bronchitis
-Patient with known history of dysphagia/aspiration risk although remains adamant about not following any diet restriction.
-Patient declined to be seen by speech therapy as well
-Lung exam relatively clear except some rhonchi.
-Maintain on empiric Rocephin and doxycycline. day 3/ today
-Oxygen requirement is came back to 3 L through nasal cannula
Acute on chronic diastolic congestive heart failure
-Chest x-ray questioning mild pulmonary edema/CHF
-currently on IV lasix 40mg/d
-weight trending down at 85Kg, cr stable 0.9
Chest pain
-new complain today
-With underlying chronic cognition issues patient unable to specify further
-EKG did not show any new ST segment changes
-2 sets of troponin ordered
Acute toxic metabolic encephalopathy - Improved
-Secondary to polypharmacy with Klonopin/Zyprexa/Ativan/trazodone
-Patient on valproate as mood stabilizer, level close to upper normal cutoff.
-Psychiatry asked to help as well.
Tardive dyskinesia
Schizoaffective disorder
-Tardive dyskinesia likely from long-term antipsychotic need
-Continue home dose of Depakote, check levels
Benign Hypertension
�- Stable.� Continue home med regimen.
DM-II
�- Stable.� Continue outpatient metformin / Farxiga.
- Continue basal : bolus insulin regimen.
�- SSI coverage as needed.
- hbga1c of 6.7
Hypothyroidism
�- Stable.� Continue home T4 supplementation.
Obesity due to excess calories and insulin resistance.
�- Affects all aspects of care.
�- Encourage healthy diet and increased activity with goal of weight loss.
DVT Prophylaxis:� Lovenox
Code Status:� Full
Anticipated Discharge: 24 - 48 hours
Subjective/Interval History
-
Date of Service: July 28, 2023
Patient resting comfortably in bed
During morning rounds was not having any issues
RN reported patient complaining some chest pain later in the day
Objective Data
-
Labs:
Laboratory Results
07/28/23
07:21
WBC 12.3 H
Hgb 11.6 L
Hct 34.8 L
Plt Count 172
Sodium 143
Potassium 4.2
Chloride 91 L
Carbon Dioxide 42 H
BUN 34 H
Creatinine 0.9
Glucose 141 H
Calcium 9.4
Vital Signs:
Vital Signs
Temp Pulse Resp BP Pulse Ox
98.1 F 89 16 143/69 96
07/28/23 07:00 07/28/23 12:00 07/28/23 11:43 07/28/23 12:00 07/28/23 12:00
I&O
07/27/23 07/28/23 07/29/23
06:59 06:59 06:59
Intake Total 180 / 180 600 / 600 600 / 600
Output Total 150 / 150 50 / 50
Balance 30 / 30 550 / 550 600 / 600
Review of Systems
-
Respiratory: Reports No Symptoms
Cardiac: Reports Chest Pain
Abdomen/GI: Reports No Symptoms
Physical Exam
-
General: Conversant, Obese and Other (developmental delay)
HEENT: Oxygen (2L NC)
Respiratory: Clear to Auscultation
Cardiac: Regular Rhythm and S1/S2; Negative Murmur
GI: Soft, Nontender and Nondistended
Neuro: Awake, Alert and No Motor Deficits
Psych: Calm
[2023-07-28] MEDS: STERILE WATER FOR INJECTION 10 ML IV (13:09)
[2023-07-28] MEDS: ROCEPHIN 1000 MG IV (13:10)
[2023-07-28] MEDS: NOVOLOG FLEXPEN 10 UNITS SC ×2 (13:12→18:03)
[2023-07-28 13:13] LABS: Troponin I < 0.012 ng/ml
[2023-07-28] MEDS: LANTUS 0.179999999999999993 UNITS SC (13:14)
[2023-07-28] MEDS: DEPAKENE 750 MG PO (13:26)
[2023-07-28 14:50] LABS: Troponin I < 0.012 ng/ml
[2023-07-28 15:00] VITALS: BP 174/65
[2023-07-28] MEDS: ULTRAM 25 MG PO (16:21)
[2023-07-28 16:39] LABS: Glucose - Point of Care 129 mg/dl (70-99)
[2023-07-28] MEDS: LOVENOX 40 MG SC (18:03)
[2023-07-28 19:00] VITALS: BP 169/52
[2023-07-28 21:00] LABS: Glucose - Point of Care 61 mg/dl (70-99)
[2023-07-28 21:22] LABS: Glucose - Point of Care 72 mg/dl (70-99)
[2023-07-28 23:00] VITALS: BP 121/55
[2023-07-28 23:33] LABS: Glucose - Point of Care 191 mg/dl (70-99)
[2023-07-29] VITALS (8 sets, daily range): BP systolic 132–158; BP diastolic 66–92; PULSE 93–99; O2SAT 92–93; BMI 35.2
[2023-07-29 03:13] LABS: Glucose - Point of Care 145 mg/dl (70-99)
[2023-07-29] MEDS: SYNTHROID 75 MCG PO (05:40)
[2023-07-29 06:56] LABS: Hematocrit 36.1 % (37.0-47.0); Hemoglobin 12.1 g/dL (12.0-16.0); Mean Corp Hgb Conc. 33.5 g/dL (33.0-37.0); Mean Corpuscular Hgb 37.6 pg (27.0-31.0); Mean Corpuscular Volume 112.1 fL (81.0-99.0); Mean Platelet Volume 9.4 fL (7.4-10.4); Platelet Count 187 10^3/uL (130-400); Red Blood Cell Count 3.22 10^6/uL (4.20-5.40); Red Cell Dist. Width 12.8 % (11.5-14.5); White Blood Cell Count 9.7 10^3/uL (4.8-10.8)
[2023-07-29 07:10] LABS: Blood Urea Nitrogen 37 mg/dl (7-17); Calcium 9.5 mg/dl (8.4-10.2); Chloride 90 mmol/L (98-107); Estimated Creatinine Clearance 57 ml/min; Glucose 104 mg/dl (70-99); Potassium 4.5 mmol/L (3.5-5.1); Sodium 141 mmol/L (135-145); eGFR > 60.00
[2023-07-29 07:21] LABS: Carbon Dioxide 42 mmol/L (22-30)
[2023-07-29] MEDS: PULMICORT 0.5 MG INH ×2 (07:53→20:38)
[2023-07-29] MEDS: DUONEB 3 ML INH ×4 (07:53→20:38)
[2023-07-29 08:39] LABS: Glucose - Point of Care 132 mg/dl (70-99)
[2023-07-29] MEDS: NOVOLOG FLEXPEN-MODERATE RESISTANCE SC ×3 (08:45→16:30)
[2023-07-29] MEDS: GLUCOPHAGE 1000 MG PO ×2 (08:58→18:02)
[2023-07-29] MEDS: COLACE 100 MG PO ×2 (08:58→20:19)
[2023-07-29] MEDS: PROZAC 20 MG PO (08:58)
[2023-07-29] MEDS: PRAVACHOL 80 MG PO (08:58)
[2023-07-29] MEDS: PROTONIX 40 MG PO (08:58)
[2023-07-29] MEDS: MUCINEX 1200 MG PO ×2 (08:59→20:19)
[2023-07-29] MEDS: VALTREX 500 MG PO ×2 (08:59→20:23)
[2023-07-29] MEDS: ZYLOPRIM 300 MG PO (08:59)
[2023-07-29] MEDS: VIBRAMYCIN 100 MG PO ×2 (08:59→20:19)
[2023-07-29] MEDS: DEPAKENE 500 MG PO ×3 (08:59→20:20)
[2023-07-29] MEDS: FARXIGA 10 MG PO (08:59)
[2023-07-29] MEDS: NOVOLOG FLEXPEN 10 UNITS SC (09:00)
[2023-07-29] MEDS: LANTUS 0.179999999999999993 UNITS SC (09:00)
[2023-07-29] MEDS: LASIX 40 MG IV (09:01)
--- NOTE | 2023-07-29 10:23 | W.PN.HOSP.TC ---
Addendum entered and electronically signed by Indy Wing MD 07/29/23 12:11:
d/w Psych Dr Hernadez, Zyprexa should be resumed.
Original Note:
Today's Communication/Plan
-
see A/P
Assessment / Plan
Assessment / Plan
Patient is a 63y F with PMH significant for schizophrenia, DM-II, COPD, chronic O2, developmental delay; who presented to ED complaining of cough and SOB.
CXR:
Mild CHF. Bibasilar probable atelectasis.
A/P:
# Acute on Chronic Hypoxemic Respiratory Insufficiency
-Oxygen requirement back to 3L through nasal cannula. She is on 2-3L NC at home.
# Presumed aspiration pneumonitis vs acute bronchitis
-Patient with known history of dysphagia/aspiration risk although remains adamant about not following any diet restriction.
-Patient declined to be seen by speech therapy as well
-Lung exam relatively clear except some rhonchi.
-Maintain on empiric Rocephin and doxycycline. Add Flagyl for anaerobe coverage
# Acute on chronic diastolic congestive heart failure
-Chest x-ray questioning mild pulmonary edema/CHF
-currently on IV lasix 40mg/d
-weight trending down at 84.5Kg, cr stable 1.0
# Chest pain on 07/27, resolved
-With underlying chronic cognition issues patient unable to specify further
-EKG did not show any new ST segment changes
-troponin x2 negative
# Acute toxic metabolic encephalopathy - Improved
-Secondary to polypharmacy with Klonopin/Zyprexa/Ativan/trazodone
-Patient on valproate as mood stabilizer, level close to upper normal cutoff.
-Psychiatry following
Noted Zyprexa on hold, will ask Psych to determine to stop or cont Zyprexa
# Tardive dyskinesia
# Schizoaffective disorder
-Tardive dyskinesia likely from long-term antipsychotic need
-Continue home dose of Depakote
# Benign Hypertension
- Stable.� Continue home med regimen.
# DM-II
- Stable.� Continue outpatient metformin / Farxiga.
- Continue basal : bolus insulin regimen.
- SSI coverage as needed.
- hbga1c of 6.7
# Hypothyroidism
- Stable.� Continue home T4 supplementation.
# Obesity due to excess calories and insulin resistance.
- Affects all aspects of care.
- Encourage healthy diet and increased activity with goal of weight loss.
DVT Prophylaxis:� Lovenox
Code Status:� Full
Dispo: return to [facility] when ready
Anticipated Discharge: 24 - 48 hours
Subjective/Interval History
-
Date of Service: July 29, 2023
Objective Data
-
Labs:
Laboratory Results
07/29/23
06:00
WBC 9.7
Hgb 12.1
Hct 36.1 L
Plt Count 187
Sodium 141
Potassium 4.5
Chloride 90 L
Carbon Dioxide 42 H
BUN 37 H
Creatinine 1.0
Glucose 104 H
Calcium 9.5
Vital Signs:
Vital Signs
Temp Pulse Resp BP Pulse Ox
36.8 C 91 18 156/90 93
07/29/23 07:00 07/29/23 09:01 07/29/23 07:55 07/29/23 09:01 07/29/23 07:55
I&O
07/28/23 07/29/23 07/30/23
06:59 06:59 06:59
Intake Total 600 / 600 1600 / 1600
Output Total 50 / 50
Balance 550 / 550 1600 / 1600
Review of Systems
-
All other systems: Reviewed and negative
Physical Exam
-
General: Comfortable, Conversant, Obese and Other (developmental delay)
HEENT: Oxygen (3L NC)
Respiratory: Clear to Auscultation and Non Labored Respirations
Cardiac: Regular Rhythm and S1/S2; Negative Murmur
GI: Soft, Nontender and Nondistended
Neuro: Awake, Alert and No Motor Deficits
Psych: Calm
Data Reviewed
-
Diagnostic Radiology: Image personally visualized and interpreted and Report Reviewed by me
Labs: Labs Reviewed by me
--- NOTE | 2023-07-29 10:49 | CM ---
CM following re:discharge planing.
Reviewed pt's chart.
Pt is a resident of [facility].
PT and OT evaluations noted- home PT/OT recommended. CM spoke to [facility] claim representative Stefani and she stated they mostly uses [facility]. Per Stefani, medication list must be faxed to them prior to pt's discharge at [phone]
A referral to [facility] made.
[facility] nursing report: [phone]
Medications list fax: [phone]
D/C plan: return back to [facility] with [facility] and [facility] staff support. [facility] staff to transport.
CM will follow with discharge plan updates as hospitalization progresses
[2023-07-29] MEDS: NOVOLOG FLEXPEN SC ×2 (11:30→17:56)
[2023-07-29 12:08] LABS: Glucose - Point of Care 115 mg/dl (70-99)
[2023-07-29] MEDS: ROCEPHIN 1000 MG IV (13:44)
[2023-07-29] MEDS: FLAGYL 500 MG 100 IV ×2 (13:44→20:19)
[2023-07-29] MEDS: STERILE WATER FOR INJECTION 10 ML IV (13:44)
[2023-07-29 16:25] LABS: Glucose - Point of Care 102 mg/dl (70-99)
--- NOTE | 2023-07-29 16:28 | VNURNOTE ---
Home Health Liaison met with patient at 1600 to discuss [facility] nurse/therapy, visits, schedule and homebound status. Patient is agreeable and understands that visits at home will be 2-3 x per week to assess and teach medical management. Call to [place]
[facility] and Liaison spoke to Stefani. Stefani (RN) verified that patient is weighed everyday and recorded.
Stefani is aware that [facility] will contact them for start of care in 1-2 days after discharge from .
[facility] referral completed in [facility].
--- NOTE | 2023-07-29 16:35 | W.PN.UPDATE ---
Update Note
Progress Note Update
Pt seen lying in bed initially asleep. Pt making eye contact, appears alert/clear, but gives limited responses, appears hard of hearing. Pt denies mood disturbance, states she feels 'fine.' Pt was dismissive, states she does not want to talk to
Psychiatry. No clear signs of TD during visit today. Zyprexa was resumed at existing dose. Pt is taking psych meds, with no acute side effects evident. No signs of active psychosis or mood disturbance.
Imp: Schizoaffective d/o, bipolar type, by history. Pt appears stable on existing meds. Okay thus far here with Klonopin on prn basis, has not taken.
Rec: continue current psych med regimen. Return to [facility] with outpatient psychiatric care when medically stable.
will follow loosely
[2023-07-29] MEDS: LOVENOX 40 MG SC (18:02)
[2023-07-29 21:39] LABS: Glucose - Point of Care 191 mg/dl (70-99)
[2023-07-30 03:00] VITALS: BP 143/68
[2023-07-30] MEDS: FLAGYL 500 MG 100 IV (04:10)
[2023-07-30] MEDS: SYNTHROID 75 MCG PO (05:31)
[2023-07-30 06:00] VITALS: BMI 35.2
[2023-07-30 06:20] LABS: Hematocrit 37.1 % (37.0-47.0); Hemoglobin 12.2 g/dL (12.0-16.0); Mean Corp Hgb Conc. 32.9 g/dL (33.0-37.0); Mean Corpuscular Hgb 37.2 pg (27.0-31.0); Mean Corpuscular Volume 113.1 fL (81.0-99.0); Mean Platelet Volume 9.7 fL (7.4-10.4); Platelet Count 195 10^3/uL (130-400); Red Blood Cell Count 3.28 10^6/uL (4.20-5.40); Red Cell Dist. Width 13.1 % (11.5-14.5); White Blood Cell Count 8.4 10^3/uL (4.8-10.8)
[2023-07-30 06:44] LABS: Depakane 68.4 ug/ml (50.0-120.0)
[2023-07-30 06:58] LABS: Blood Urea Nitrogen 38 mg/dl (7-17); Calcium 9.8 mg/dl (8.4-10.2); Carbon Dioxide 39 mmol/L (22-30); Chloride 91 mmol/L (98-107); Estimated Creatinine Clearance 57 ml/min; Glucose 133 mg/dl (70-99); Potassium 4.7 mmol/L (3.5-5.1); Sodium 139 mmol/L (135-145); eGFR > 60.00
[2023-07-30 07:00] VITALS: BP 150/85
[2023-07-30 07:34] LABS: Glucose - Point of Care 135 mg/dl (70-99)
[2023-07-30] MEDS: NOVOLOG FLEXPEN 10 UNITS SC (07:36)
[2023-07-30] MEDS: LANTUS 0.179999999999999993 UNITS SC (07:36)
[2023-07-30] MEDS: DEPAKENE 500 MG PO ×2 (07:37→11:41)
[2023-07-30] MEDS: VIBRAMYCIN 100 MG PO ×2 (07:37→15:28)
[2023-07-30] MEDS: COLACE 100 MG PO (07:37)
[2023-07-30] MEDS: ZYPREXA 10 MG PO (07:37)
[2023-07-30] MEDS: VALTREX 500 MG PO (07:37)
[2023-07-30] MEDS: MUCINEX 1200 MG PO (07:37)
[2023-07-30] MEDS: FARXIGA 10 MG PO (07:38)
[2023-07-30] MEDS: PROTONIX 40 MG PO (07:38)
[2023-07-30] MEDS: PRAVACHOL 80 MG PO (07:38)
[2023-07-30] MEDS: NOVOLOG FLEXPEN-MODERATE RESISTANCE SC ×2 (07:38→11:50)
[2023-07-30] MEDS: PROZAC 20 MG PO (07:38)
[2023-07-30] MEDS: GLUCOPHAGE 1000 MG PO (07:38)
[2023-07-30] MEDS: ZYLOPRIM 300 MG PO (07:38)
[2023-07-30] MEDS: LASIX 40 MG IV (07:38)
[2023-07-30] MEDS: DUONEB 3 ML INH ×3 (07:42→16:03)
[2023-07-30] MEDS: TYLENOL 650 MG PO (09:01)
[2023-07-30 11:00] VITALS: BP 149/64
--- NOTE | 2023-07-30 11:06 | W.PN.HOSP.TC ---
Today's Communication/Plan
-
OK for DC today
Assessment / Plan
Assessment / Plan
Patient is a 63y F with PMH significant for schizophrenia, DM-II, COPD, chronic O2, developmental delay; who presented to ED complaining of cough and SOB.
CXR:
Mild CHF. Bibasilar probable atelectasis.
A/P:
# Acute on Chronic Hypoxemic Respiratory Insufficiency
-Oxygen requirement back to 3L through nasal cannula. She is on 2-3L NC at home.
# Presumed aspiration pneumonitis vs acute bronchitis
-Patient with known history of dysphagia/aspiration risk although remains adamant about not following any diet restriction.
-Patient declined to be seen by speech therapy as well
-Lung exam relatively clear except some rhonchi.
-Maintain on empiric Rocephin and doxycycline. stop Flagyl (not necessary with clinical improvement) - 5th day abx
# Acute on chronic diastolic congestive heart failure
-Chest x-ray questioning mild pulmonary edema/CHF
-currently on IV lasix 40mg/d
-weight trending down at 84.5Kg, cr stable 1.0
-euvolemic today, OK to transition to oral
# Chest pain on 07/27, resolved
-With underlying chronic cognition issues patient unable to specify further
-EKG did not show any new ST segment changes
-troponin x2 negative
# Acute toxic metabolic encephalopathy - Improved
-Secondary to polypharmacy with Klonopin/Zyprexa/Ativan/trazodone
-Patient on valproate as mood stabilizer, level close to upper normal cutoff.
-Psychiatry following
Zyprexa resumed
# Tardive dyskinesia
# Schizoaffective disorder
-Tardive dyskinesia likely from long-term antipsychotic need
-Continue home dose of Depakote
# Benign Hypertension
- Stable.� Continue home med regimen.
# DM-II
- Stable.� Continue outpatient metformin / Farxiga.
- Continue basal : bolus insulin regimen.
- SSI coverage as needed.
- hbga1c of 6.7
# Hypothyroidism
- Stable.� Continue home T4 supplementation.
# Obesity due to excess calories and insulin resistance.
- Affects all aspects of care.
- Encourage healthy diet and increased activity with goal of weight loss.
DVT Prophylaxis:� Lovenox
Code Status:� Full
Dispo: return to [facility] when ready
Anticipated Discharge: Today
Subjective/Interval History
-
Date of Service: July 30, 2023
wants to go home today
Objective Data
-
Labs:
Laboratory Results
07/30/23
05:50
WBC 8.4
Hgb 12.2
Hct 37.1
Plt Count 195
Sodium 139
Potassium 4.7
Chloride 91 L
Carbon Dioxide 39 H
BUN 38 H
Creatinine 1.0
Glucose 133 H
Calcium 9.8
Vital Signs:
Vital Signs
Temp Pulse Resp BP Pulse Ox
97.8 F 94 18 150/65 95
07/30/23 07:00 07/30/23 07:45 07/30/23 07:45 07/30/23 07:38 07/30/23 09:50
I&O
07/29/23 07/30/23 07/31/23
06:59 06:59 06:59
Intake Total 1600 / 1600 1160 / 1160
Balance 1600 / 1600 1160 / 1160
Review of Systems
-
History Source: Patient
All other systems: Reviewed and negative
Physical Exam
-
General: Comfortable, Conversant, Obese and Other (developmental delay)
HEENT: Oxygen (3L NC)
Respiratory: Clear to Auscultation and Non Labored Respirations
Cardiac: Regular Rhythm and S1/S2; Negative Murmur
GI: Soft, Nontender and Nondistended
Neuro: Awake, Alert and No Motor Deficits
Psych: Calm
Data Reviewed
-
Diagnostic Radiology: Report Reviewed by me
Labs: Labs Reviewed by me
--- NOTE | 2023-07-30 11:18 | W.DS.TRANS ---
DC Summary - Pantographer
-
Discharge Instructions:
Discharge Diagnosis/Procedures acute on chronic hypoxic insufficiency in
setting of bronchitis; risk for aspiration
pneumonia
Diet Regular
Additional Diets You rejected evaluation by speech therapy to see
if you need a modified diet
Activity As tolerated
Driving Restrictions No driving
Bathing Restrictions None
Other Services [facility],PT,OT
Specialty Instructions Weigh Daily
Instructions:
Stand-Alone Forms:
Changes to Home Medications: Yes
Discharge Medications:
DC Medications w/original date entered in [facility]
allopurinol 300 mg tablet 300 mg PO DAILY Gout 06/08/20
cholecalciferol (vitamin D3) 25 mcg (1,000 unit) tablet 1,000 units PO DAILY Supplement 06/08/20
levothyroxine 75 mcg tablet 75 mcg PO DAILY Thyroid 06/08/20
metformin 1,000 mg tablet 1,000 mg PO BID Diabetes 06/08/20
ondansetron HCl 4 mg tablet 4 mg PO Q8HPRN PRN nausea 05/04/21
acetaminophen 325 mg tablet 650 mg PO Q6HPRN PRN mild pain 05/28/21
dapagliflozin propanediol 10 mg tablet (Farxiga) 10 mg PO DAILY Diabetes 09/13/21
fluticasone 100 mcg-salmeterol 50 mcg/dose blistr powdr for inhalation (Advair Diskus) 1 inh inhalation R BID Lung/breathing issues 09/13/21
insulin glulisine U-100 100 unit/mL subcutaneous pen (Apidra SoloStar U-100 Insulin) 10 unit SC AC Diabetes 09/13/21
melatonin 3 mg tablet 6 mg PO HS Sleep 09/13/21
olanzapine 10 mg tablet (Zyprexa) 10 mg PO DAILY mental health 09/13/21
pravastatin 80 mg tablet 80 mg PO DAILY High cholesterol 09/13/21
valproic acid 250 mg capsule 500 mg PO DAILY mental health 09/13/21
fluoxetine 10 mg capsule (Prozac) 20 mg PO DAILY Depression 02/07/22
furosemide 40 mg tablet 40 mg PO DAILY Fluid retention/Swelling 02/08/22
multivitamin with iron 1 tab PO DAILY Supplement 07/08/22
benzonatate 100 mg capsule 100 mg PO TIDPRN PRN COUGH 04/12/23
ezetimibe 10 mg tablet (Zetia) 10 mg PO DAILY High Cholesterol 04/12/23
glucagon 3 mg/actuation nasal spray (Baqsimi) 3 mg intranasal DAILYPRN PRN severe hypoglycemia 04/12/23
insulin glargine 100 unit/mL (3 mL) subcutaneous pen (Lantus Solostar U-100 Insulin) 18 unit SC DAILY Diabetes 04/12/23
loperamide 2 mg tablet 2 mg PO Q6HPRN PRN diarrhea 04/12/23
polyethylene glycol 3350 17 gram oral powder packet (Miralax) 17 g PO DAILYPRN PRN constipation 04/12/23
valacyclovir 500 mg tablet 500 mg PO BID viral infection 04/12/23
docusate sodium 100 mg capsule 100 mg PO BID Constipation 07/26/23
epinephrine 0.3 mg/0.3 mL injection syringe 0.3 mg SC ONCE PRN allergy 07/26/23
guaifenesin 600 mg tablet, extended release 12 hr (Mucinex) 1,200 mg PO Q12H PRN congestion 07/26/23
magnesium hydroxide 400 mg/5 mL oral suspension (Milk of Magnesia) 15 ml PO BID PRN constipation 07/26/23
clonazepam 1 mg tablet 1.5 mg (1.5 x 1 mg) PO HS PRN Mental Health/Anxiety #1 tab 07/30/23
doxycycline hyclate 100 mg capsule 100 mg PO Q12 #1 cap 07/30/23
furosemide 20 mg tablet (Lasix) 40 mg (2 x 20 mg) PO DAILYPRN PRN fluid #0 tabs 07/30/23
valproic acid 250 mg capsule 500 mg (2 x 250 mg) PO BID@1200,2000 mental health #0 caps 07/30/23
Home Medication Changes
You completed most of your antibiotic course in the hospital. You have one more dose of Doxycycline this evening.
Decrease Valproic acid from 500mg in mornings; 750mg @ 12:00 and 20:00 to 500mg in mornings and 500mg @ 12:00 and 20:00
Stop Ativan. You did not require Ativan (Lorazepam) in the hospital. Continue Clonazepam as needed at nighttime.
Stop Trazodone
Continue lasix daily; extra pill for weight gain.
Pending Results: No
--- NOTE | 2023-07-30 11:29 | CM ---
audit manager following for d/c planning
Pt ready for d/c
Called [facility] - [phone], spoke with RN Chester
Can accept back today
Will provide transportation back after 3PM
Aware pt on oxygen - 3L
[facility] to follow for PT/OT
Fax med list to - [phone]
Plan - Return to [facility] with [facility] nursing report: [phone]
Medications list fax: [phone]
[2023-07-30 11:36] LABS: Glucose - Point of Care 99 mg/dl (70-99)
[2023-07-30] MEDS: ROCEPHIN 1000 MG IV (11:42)
[2023-07-30] MEDS: STERILE WATER FOR INJECTION 10 ML IV (11:43)
[2023-07-30] MEDS: NOVOLOG FLEXPEN SC (11:49)
--- NOTE | 2023-07-30 14:14 | W.HF.CON ---
Heart Failure
- LV Function
Left ventricular function study result: LV Ejection fraction >40% ([facility] 02/12/22)
Ejection Fraction Percentage: 60-65
- ARNI
Patient already on ARNI: No
Heart Failure ARNI Not Indicated: LV Ejection Fraction >/= 40%
- ACEI/ARB
Patient already on ACEI/ARB: No
Heart Failure ACEI/ARB Not Indicated: LV Ejection Fraction > 40%
- Beta [place]
Patient already on Evidence Based Beta [place]ina: No
Heart Failure Evidence Based Beta [place] Not Indicated: LV Ejection Fraction > 40%
- Mineralocorticord Receptor Antagonist
Patient already on MRA: No
Heart Failure MRA Not Indicated: LV Ejection Fraction > 40%
- SGLT-2 Inhibitor
Patient already on SGLT-2 Inhibitor: Yes
- NYHA CHF Classification
NYHA CHF Classification Level: Class III - Symptoms w/ min exertion, interferes w/ nml daily activity (on home oxygen/pneumonia)
- ACC/AHA Stage
ACC/AHA Stage: Stage C: Symptomatic Heart Failure
[2023-07-30 15:35] VITALS: BP 157/93
--- NOTE | 2023-07-30 15:58 | W.DCSUMMARY ---
Discharge Summary
Discharge Data
Date of Admission: 07/26/23
Date of Discharge: 07/30/23
-
Pending Results: No
Hospital Course
Discharging Physician : Dr. Jackie Chang
Disposition : Alf
Primary care physician : Dr. Shimon Cleary
Principal Discharge diagnosis : Community Acquired Pneumonia
Hospital Course :
Ms. Memo Cartwright is a 63 yo woman with hx Bipolar/Schizophrenia, DM II, HTN, Hypothyroidism, Obesity, COPD/Asthma on home O2 2-3L, HFpEF presents to the ER with cough and shortness of breath. She was noted to need increased O2 requirements.
Triage vitals stable. Labs with WBC 12.1. CXR with bibasilar likely atelectasis and mild CHF. Patient was admitted to medicine for treatment of heart failure and acute bronchitis. She was also treated for TME thought 2/2 polypharmacy.
Patient was treated with antibiotics ceftriaxone and doxycycline and completed course in the hospital. Leukocytosis resolved and she is down to baseline O2. She was diuresed and appears euvolemic on day of discharge (weight 84.4kg down from 88 kg
(93 measured in ER)).
Psychiatry consulted and her medications adjusted:
Decrease Valproic acid from 500mg in mornings; 750mg @ 12:00 and 20:00 to 500mg in mornings and 500mg @ 12:00 and 20:00
Stop Ativan. You did not require Ativan (Lorazepam) in the hospital. Continue Clonazepam as needed at nighttime.
Stop Trazodone
Patient was eager for discharge today.
Time spent on discharge was 35 minutes.
Important imaging findings :
CXR 07/25/23
IMPRESSION:
Mild CHF. Bibasilar probable atelectasis.
Procedure findings :
Discharge Plan
-
Patient Disposition: Home with Home Care
Discharge Diagnosis/Procedures: acute on chronic hypoxic insufficiency in setting of bronchitis; risk for aspiration pneumonia
Diet: Regular
Additional Diets: You rejected evaluation by speech therapy to see if you need a modified diet
Activity: As tolerated
Driving Restrictions: No driving
Bathing Restrictions: None
Other Services: VN, PT and OT
Specialty Instructions: Weigh Daily- Call MD for wt gain/loss 3 lbs overnight/5 lbs in 1 week
Instructions: *PCP/Other [facility] Heart Failure Instructions
Referrals:
Shimon Cleary, DO [Family Provider] - in less than 1 week
Additional Discharge Medication Instructions: You completed most of your antibiotic course in the hospital. You have one more dose of Doxycycline this evening.
Decrease Valproic acid from 500mg in mornings; 750mg @ 12:00 and 20:00 to 500mg in mornings and 500mg @ 12:00 and 20:00
Stop Ativan. You did not require Ativan (Lorazepam) in the hospital. Continue Clonazepam as needed at nighttime.
Stop Trazodone
Continue lasix daily; extra pill for weight gain.
Follow up closely with your outpatient providers.
Prescriptions:
New
doxycycline hyclate 100 mg Capsule
100 mg PO Q12 Qty: 1 0RF
Continued
levothyroxine 75 MCG tablet
75 mcg PO DAILY
metformin 1,000 MG tablet
1,000 mg PO BID
allopurinol 300 MG tablet
300 mg PO DAILY
cholecalciferol (vitamin D3) 1,000 UNITS tablet
1,000 units PO DAILY
ondansetron HCl 4 MG tablet
4 mg PO Q8HPRN PRN (Reason: nausea)
acetaminophen 325 MG tablet
650 mg PO Q6HPRN PRN (Reason: mild pain)
olanzapine [Zyprexa] 10 mg Tablet
10 mg PO DAILY
melatonin 3 mg Tablet
6 mg PO HS
valproic acid 250 mg Capsule
500 mg PO DAILY
pravastatin 80 mg Tablet
80 mg PO DAILY
fluticasone propion-salmeterol [Advair Diskus] 100-50 mcg/dose Blister With Device
1 inh INHALATION R BID
Apidra SoloStar U-100 Insulin 100 unit/mL Insulin Pen
10 unit SC AC
dapagliflozin propanediol [Farxiga] 10 mg Tablet
10 mg PO DAILY
fluoxetine [Prozac] 10 mg Capsule
20 mg PO DAILY
furosemide 40 MG tablet
40 mg PO DAILY
multivitamin with iron Tablet
1 tab PO DAILY
loperamide 2 mg Tablet
2 mg PO Q6HPRN PRN (Reason: diarrhea)
valacyclovir 500 mg Tablet
500 mg PO BID
benzonatate 100 mg Capsule
100 mg PO TIDPRN PRN (Reason: COUGH)
ezetimibe [Zetia] 10 mg Tablet
10 mg PO DAILY
insulin glargine [Lantus Solostar U-100 Insulin] 100 unit/mL (3 mL) Insulin Pen
18 unit SC DAILY
Baqsimi 3 mg/actuation [place],Non-Aerosol
3 mg INTRANASAL DAILYPRN PRN (Reason: severe hypoglycemia )
polyethylene glycol 3350 [Miralax] 17 gram powder in packet
17 g PO DAILYPRN PRN (Reason: constipation)
docusate sodium 100 mg Capsule
100 mg PO BID
guaifenesin [Mucinex] 600 mg Tablet Extended Release 12hr
1,200 mg PO Q12H PRN (Reason: congestion)
epinephrine 0.3 mg/0.3 mL Syringe
0.3 mg SC ONCE PRN (Reason: allergy)
magnesium hydroxide [Milk of Magnesia] 400 mg/5 mL Suspension
15 ml PO BID PRN (Reason: constipation)
Changed
clonazepam 1 mg Tablet
1.5 mg PO HS PRN (Reason: Mental Health/Anxiety) Qty: 1 0RF
valproic acid 250 mg Capsule
500 mg PO BID@1200,2000 Qty: 0 0RF
furosemide [Lasix] 20 mg tablet
40 mg PO DAILYPRN PRN (Reason: fluid) Qty: 0 0RF
Discontinued
trazodone 100 mg Tablet
125 mg PO HS
lorazepam 2 mg Tablet
2 mg PO TID PRN (Reason: Anxiety)
Discharge Orders:
Discharge Patient (As Directed); Ordered 07/30/23
Ordered By: Jackie Chang
Discharge Date and Time
Print Language: OMANI
--- NOTE | 2023-07-30 16:57 | PTCARENOTE ---
Pt. picked up by Willam who works in [facility]. This RN walked pt. down to the main lobby with O2 and helped pt. in car. Willam given med list and transfer forms.
== END 2023-07-30 16:59 | disposition home health service (06) | DRG 177 ==
LOC: 3 WEST ACU 01:52
PROVIDERS: Hospitalist; Internal Medicine; Psychiatry & Neurology Psychiatry; ADMITTING PHYSICIAN Hospitalist; ATTENDING PHYSICIAN Student in an Organized Health Care Education/Training Program; EMERGENCY PHYSICIAN Student in an Organized Health Care Education/Training Program; FAMILY PHYSICIAN Family Medicine
DX: J69.0 Pneumonitis due to inhalation of food and vomit (principal); G92.8 Other toxic encephalopathy; I50.33 Acute on chronic diastolic (congestive) heart failure; J98.11 Atelectasis; J44.0 Chronic obstructive pulmonary disease with (acute) lower respiratory infection; I11.0 Hypertensive heart disease with heart failure; R05.9 Cough, unspecified; R09.02 Hypoxemia; F25.0 Schizoaffective disorder, bipolar type; F60.3 Borderline personality disorder; E03.9 Hypothyroidism, unspecified; E11.649 Type 2 diabetes mellitus with hypoglycemia without coma; R06.89 Other abnormalities of breathing; G24.01 Drug induced subacute dyskinesia; T43.595A Adverse effect of other antipsychotics and neuroleptics, initial encounter; Y92.9 Unspecified place or not applicable; E78.00 Pure hypercholesterolemia, unspecified; R06.03 Acute respiratory distress; E88.819 Insulin resistance, unspecified; R62.50 Unspecified lack of expected normal physiological development in childhood; D63.8 Anemia in other chronic diseases classified elsewhere; K21.9 Gastro-esophageal reflux disease without esophagitis; E66.09 Other obesity due to excess calories; Z91.51 Personal history of suicidal behavior; Z99.81 Dependence on supplemental oxygen; Z87.19 Personal history of other diseases of the digestive system; Z79.890 Hormone replacement therapy; Z79.84 Long term (current) use of oral hypoglycemic drugs; Z79.51 Long term (current) use of inhaled steroids; Z79.4 Long term (current) use of insulin; Z68.35 Body mass index [BMI] 35.0-35.9, adult; Z11.52 Encounter for screening for COVID-19; Z91.030 Bee allergy status; Z91.041 Radiographic dye allergy status; Z88.5 Allergy status to narcotic agent; Z88.0 Allergy status to penicillin; Z88.2 Allergy status to sulfonamides; Z88.7 Allergy status to serum and vaccine; Z88.8 Allergy status to other drugs, medicaments and biological substances; Z91.018 Allergy to other foods
CPT/HCPCS: 36600; 71046; 80048; 80053; 80164; 82805; 82962; 83036; 83880; 84443; 84484; 85025; 85027; 87070; 87502; 87811; 93005; 94640; 96374; 97162; 97166; 99285

== ENCOUNTER → 2023-09-25 09:29 | Outpatient (REF) | payer OTHER, SELFPAY | LOC: RAD 09:29 | PROVIDERS: ATTENDING PHYSICIAN Family Medicine | DX: M25.512 Pain in left shoulder (principal) | CPT/HCPCS: 73030 ==

== ENCOUNTER 2023-10-17 10:45 | Emergency (ER) | payer OTHER, SELFPAY ==
[2023-10-17 10:52] VITALS: BP 132/68; BMI 31.1
[2023-10-17 10:55] VITALS: BP 132/68
[2023-10-17 11:00] VITALS: BP 146/59
--- NOTE | 2023-10-17 11:14 | ED.GENMED ---
History of Present Illness
General
Chief Complaint: Breathing Problem
Source: patient
Time Seen by Provider: 10/17/23 10:55
History of Present Illness
History of Present Illness:
63-year-old female presents to the emergency room from [facility] for evaluation of fever, cough. Patient does use chronic supplemental oxygen. She is on her baseline 2 to 3 L. Patient evidently was found to have a fever at the facility.
She had a negative COVID test there. She is tolerating oral intake.
Past History
Past History
ED Past Medical History: Asthma, COPD, HTN, Hypercholesterolemia, IDDM, Hypothyroidism, Psychiatric (Schizoaffective disorder, borderline personality disorder, major depressive disorder, suicide attempt) and Other (SBO,)
ED Past Surgical History: Appendectomy and Cholecystectomy
Social History
Tobacco: Non-smoker
Alcohol: None
Drug: None
Personal: Single
Living: other (retirement)
Employment: Not employed
Family History
Family History: Unable to obtain
Phy Exam
Physical Exam
Physical Exam:
General: Awake, Alert, Oriented X3. No acute distress.
Vitals: Fever, mildly tachycardic
Head: Atraumatic
Eyes: Pupils equal, EOMI
Throat: Airway intact, no exudates
Neck: Trachea midline
Lungs: Few rales bilateral bases, decreased breath sounds bilaterally
Heart: Regular rate, no murmurs
Abd: Soft, Nontender, No pulsatile mass
Neuro: No focal deficits,
Skin: Warm, dry, no rash
Extremities: pulses equal b/l, no edema
Scores
Heart Failure Risk
Heart Failure Risk Score: Not Applicable
Course
Orders/Labs/Results
Orders:
Orders
10/17/23 11:12
0.9% Sodium Chloride 500 ml [Nss] 500 ml IV BOLUS
10/17/23 11:13
CR Chest - 2 Views Urgent
Comment:
Reason For Exam: fever, chills
10/17/23 11:16
Acetaminophen [Tylenol] 650 mg PO NOW STA
10/17/23 11:17
COVID-19 Antigen Urgent
Source: Nasal Swab
Complete Blood Count/With Diff Urgent
Comprehensive Metabolic Panel Urgent
10/17/23 11:18
Urinalysis Reflex To Culture Urgent
Date Specimen was Collected: 10/17/23
Time Specimen was Collected: 11:17
Abnormal Lab Results
10/17/23 10/17/23
11:17 11:18
RBC 3.50 L 10^6/uL
(4.20-5.40)
MCV 109.7 H fL
(81.0-99.0)
MCH 36.9 H pg
(27.0-31.0)
Abs Immat Gran (auto) 0.2 H 10^3/uL
(0-0.05)
Absolute Lymphs (auto) 0.9 L 10^3/uL
(1.2-3.4)
Absolute Monos (auto) 0.8 H 10^3/uL
(0.1-0.6)
Immature Gran % 2.2 H %
(0-0.5)
Lymphocytes % 12.1 L %
(20.5-51.1)
Monocytes % 10.6 H %
(1.7-9.3)
Chloride 92 L mmol/L
(98-107)
Carbon Dioxide 39 H mmol/L
(22-30)
BUN 35 H mg/dl
(7-17)
Glucose 140 H mg/dl
(70-99)
Calcium 10.5 H mg/dl
(8.4-10.2)
Urine Glucose 3+ A
(Negative)
SARS-CoV-2 Antigen Positive A
(Negative)
10/17/23 11:17
10/17/23 11:17
Vital Signs
Initial and Last Documented VS:
Initial Vital Signs
Temp Pulse Resp BP Pulse Ox
101.1 F H 114 35 132/68 94
10/17/23 10:52 10/17/23 10:52 10/17/23 10:52 10/17/23 10:52 10/17/23 10:52
Last Documented Vital Signs
Temp Pulse Resp BP Pulse Ox
98.2 F 104 30 116/81 96
10/17/23 14:00 10/17/23 14:00 10/17/23 14:00 10/17/23 14:00 10/17/23 14:00
MDM/Problems Addressed
Differential Diagnosis Includes:
covid, pneumonia, bronchitis, uti
MDM/Problems Addressed:
Presents with cough, sore throat, fever. COVID test is positive. Chest x-ray shows no acute abnormalities. Patient not hypoxic above her normal oxygen requirements. She is tolerating oral intake. She is not hypotensive. Patient stable for
discharge back to facility
*Radiology
Radiology exam reviewed: radiology read reviewed
*Pulse Oximetry
Patient hypoxic: no
*Critical Care Note
Total Time (30-74mins, 75-104mins- exclusive of procedures): Not Applicable
ED Attending Note
-
Portions of this chart may have been created with voice recognition software.� Occasional wrong word or��sound alike� substitutions may have occurred due to the inherent limitations of voice recognition software.
Discharge Plan
Departure
Patient Disposition: Home (Routine Discharge)
Date of Disposition: 10/17/23
Time of Disposition: 13:06
Patient with high blood pressure during this ER visit?: Yes
Condition: Good
Discharge Problem:
COVID-19
Instructions: COVID-19 ED
Prescriptions:
New
Paxlovid 300 mg (150 mg x 2)-100 mg tablets,dose pack
See Rx Instructions .ROUTE .COMPLEX Qty: 30 0RF
Rx Instructions:
take TWO 150 mg tablets of nirmatrelvir with ONE 100 mg tablet of ritonavir twice daily for 5 days
No Action
levothyroxine 75 MCG tablet
75 mcg PO DAILY
metformin 1,000 MG tablet
1,000 mg PO BID
allopurinol 300 MG tablet
300 mg PO DAILY
cholecalciferol (vitamin D3) 1,000 UNITS tablet
1,000 units PO DAILY
ondansetron HCl 4 MG tablet
4 mg PO Q8HPRN PRN (Reason: nausea)
acetaminophen 325 MG tablet
650 mg PO Q6HPRN PRN (Reason: mild pain)
olanzapine [Zyprexa] 10 mg Tablet
10 mg PO DAILY
melatonin 3 mg Tablet
6 mg PO HS
valproic acid 250 mg Capsule
500 mg PO DAILY
pravastatin 80 mg Tablet
80 mg PO DAILY
fluticasone propion-salmeterol [Advair Diskus] 100-50 mcg/dose Blister With Device
1 inh INHALATION R BID
Apidra SoloStar U-100 Insulin 100 unit/mL Insulin Pen
10 unit SC AC
dapagliflozin propanediol [Farxiga] 10 mg Tablet
10 mg PO DAILY
fluoxetine [Prozac] 10 mg Capsule
20 mg PO DAILY
furosemide 40 MG tablet
40 mg PO DAILY
multivitamin with iron Tablet
1 tab PO DAILY
loperamide 2 mg Tablet
2 mg PO Q6HPRN PRN (Reason: diarrhea)
valacyclovir 500 mg Tablet
500 mg PO BID
benzonatate 100 mg Capsule
100 mg PO TIDPRN PRN (Reason: COUGH)
ezetimibe [Zetia] 10 mg Tablet
10 mg PO DAILY
insulin glargine [Lantus Solostar U-100 Insulin] 100 unit/mL (3 mL) Insulin Pen
18 unit SC DAILY
Baqsimi 3 mg/actuation [place],Non-Aerosol
3 mg INTRANASAL DAILYPRN PRN (Reason: severe hypoglycemia )
polyethylene glycol 3350 [Miralax] 17 gram powder in packet
17 g PO DAILYPRN PRN (Reason: constipation)
docusate sodium 100 mg Capsule
100 mg PO BID
guaifenesin [Mucinex] 600 mg Tablet Extended Release 12hr
1,200 mg PO Q12H PRN (Reason: congestion)
epinephrine 0.3 mg/0.3 mL Syringe
0.3 mg SC ONCE PRN (Reason: allergy)
magnesium hydroxide [Milk of Magnesia] 400 mg/5 mL Suspension
15 ml PO BID PRN (Reason: constipation)
doxycycline hyclate 100 mg Capsule
100 mg PO Q12 Qty: 1 0RF
clonazepam 1 mg Tablet
1.5 mg PO HS PRN (Reason: Mental Health/Anxiety) Qty: 1 0RF
valproic acid 250 mg Capsule
500 mg PO BID@1200,2000 Qty: 0 0RF
furosemide [Lasix] 20 mg tablet
40 mg PO DAILYPRN PRN (Reason: fluid) Qty: 0 0RF
Referrals:
Shimon Cleary DO [Family Provider] -
Interventions
Interventions:
*Risk Screen - Suicide Last Done: 10/17/23 10:52
*General Assessment Last Done: 10/17/23 10:52
*Neglect/Abuse Screening Last Done: 10/17/23 10:52
ED- Fall Risk Assessment Last Done: 10/17/23 10:52
*ED COVID-19 Vaccine History Last Done: 10/17/23 10:52
*Nursing Disposition Last Done: 10/17/23 14:16
ED- Cardiac Assessment Last Done: 10/17/23 10:52
ED- Pulmonary Assessment Last Done: 10/17/23 10:52
Discharge Date and Time
Discharge Date/Time: 10/17/23 14:19
Print Language: BENGALI
[2023-10-17] MEDS: NSS 500 IV (11:27)
[2023-10-17] MEDS: TYLENOL 650 MG PO (11:28)
[2023-10-17 11:43] LABS: Urine Albumin Negative (Neg - Trace); Urine Bilirubin Negative (Negative); Urine Character Clear (Clear); Urine Color Yellow; Urine Glucose 3+ (Negative); Urine Ketone Negative (Negative); Urine Leukocyte Negative (Negative); Urine Nitrite Negative (Negative); Urine Occult Blood Negative (Negative); Urine Urobilinogen Negative (Neg - 1+)
[2023-10-17 11:45] LABS: % Basophils 0.8 % (0-2); % Immature Granulocytes 2.2 % (0-0.5); % Lymphocytes 12.1 % (20.5-51.1); % Monocytes 10.6 % (1.7-9.3); % Neutrophils 70.3 % (42.2-75.2); Absolute Basophils 0.1 10^3/uL (0-0.2); Absolute Eosinophils 0.3 10^3/uL (0-0.7); Absolute Immature Granulocytes 0.2 10^3/uL (0-0.05); Absolute Lymphocytes 0.9 10^3/uL (1.2-3.4); Absolute Monocytes 0.8 10^3/uL (0.1-0.6); Absolute Neutrophils 5.2 10^3/uL (1.4-6.5); Hematocrit 38.4 % (37.0-47.0); Hemoglobin 12.9 g/dL (12.0-16.0); Mean Corp Hgb Conc. 33.6 g/dL (33.0-37.0); Mean Corpuscular Hgb 36.9 pg (27.0-31.0); Mean Corpuscular Volume 109.7 fL (81.0-99.0); Mean Platelet Volume 9.2 fL (7.4-10.4); Nucleated Red Blood Cells % 0 %; Platelet Count 257 10^3/uL (130-400); Red Cell Dist. Width 13.6 % (11.5-14.5); White Blood Cell Count 7.3 10^3/uL (4.8-10.8)
[2023-10-17 11:56] LABS: ALT (SGPT) 27 U/L (0-35); AST (SGOT) 35 U/L (14-36); Albumin 4.3 g/dl (3.5-5.0); Alkaline Phosphatase 67 U/L (38-126); Blood Urea Nitrogen 35 mg/dl (7-17); Calcium 10.5 mg/dl (8.4-10.2); Carbon Dioxide 39 mmol/L (22-30); Chloride 92 mmol/L (98-107); Estimated Creatinine Clearance 55 ml/min; Glucose 140 mg/dl (70-99); Potassium 4.3 mmol/L (3.5-5.1); Sodium 138 mmol/L (135-145); Total Bilirubin 0.3 mg/dl (0.2-1.3); Total Protein 6.8 g/dl (6.3-8.2); eGFR > 60.00
[2023-10-17 12:00] LABS: COVID-19 Antigen Positive (Negative)
[2023-10-17 12:01] VITALS: BP 143/58
[2023-10-17 13:00] VITALS: BP 116/62
[2023-10-17 14:00] VITALS: BP 116/81
== END 2023-10-17 14:19 | disposition home or self-care (01) ==
LOC: EMR 10:45
PROVIDERS: EMERGENCY PHYSICIAN Emergency Medicine; FAMILY PHYSICIAN Family Medicine
DX: U07.1 COVID-19 (principal); I10 Essential (primary) hypertension
CPT/HCPCS: 99284; 96360; 96361; 71046; 80053; 81003; 85025; 87811

== ENCOUNTER 2023-10-31 09:36 | Emergency (ER) | payer OTHER, SELFPAY ==
[2023-10-31 09:42] VITALS: BP 154/75
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
[2023-10-31 10:36] LABS: % Basophils 0.8 % (0-2); % Eosinophils 8.7 % (0-6); % Immature Granulocytes 1.9 % (0-0.5); % Lymphocytes 20.8 % (20.5-51.1); % Monocytes 7.6 % (1.7-9.3); % Neutrophils 60.2 % (42.2-75.2); Absolute Basophils 0.1 10^3/uL (0-0.2); Absolute Eosinophils 0.8 10^3/uL (0-0.7); Absolute Immature Granulocytes 0.2 10^3/uL (0-0.05); Absolute Monocytes 0.7 10^3/uL (0.1-0.6); Absolute Neutrophils 5.8 10^3/uL (1.4-6.5); Hematocrit 35.4 % (37.0-47.0); Mean Corp Hgb Conc. 33.9 g/dL (33.0-37.0); Mean Corpuscular Hgb 35.7 pg (27.0-31.0); Mean Corpuscular Volume 105.4 fL (81.0-99.0); Mean Platelet Volume 9.2 fL (7.4-10.4); Nucleated Red Blood Cells % 0 %; Platelet Count 296 10^3/uL (130-400); Red Blood Cell Count 3.36 10^6/uL (4.20-5.40); Red Cell Dist. Width 13.7 % (11.5-14.5); White Blood Cell Count 9.6 10^3/uL (4.8-10.8)
[2023-10-31 10:46] LABS: ALT (SGPT) 31 U/L (0-35); AST (SGOT) 36 U/L (14-36); Albumin 4.2 g/dl (3.5-5.0); Alkaline Phosphatase 57 U/L (38-126); Blood Urea Nitrogen 35 mg/dl (7-17); Calcium 9.9 mg/dl (8.4-10.2); Carbon Dioxide 32 mmol/L (22-30); Chloride 100 mmol/L (98-107); Glucose 150 mg/dl (70-99); Potassium 4.9 mmol/L (3.5-5.1); Sodium 142 mmol/L (135-145); Total Bilirubin 0.4 mg/dl (0.2-1.3); Total Protein 6.7 g/dl (6.3-8.2); eGFR > 60.00
[2023-10-31 11:34] LABS: Amphetamines Negative (Negative); Barbiturates Negative (Negative); Benzodiazepines Positive (Negative); Buprenorphine Negative (Negative); Cocaine Negative (Negative); Marijuana Negative (Negative); Methadone Negative (Negative); Methamphetamines Negative (Negative); Opiates Negative (Negative); Phencyclidine Negative (Negative); Tricyclic Antidepressants Negative (Negative)
[2023-10-31] MEDS: ATIVAN 2 MG PO (11:41)
[2023-10-31 12:17] LABS: Fentanyl, Urine Negative (Negative)
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
[2023-10-31 13:09] LABS: Urine Albumin Negative (Neg - Trace); Urine Bilirubin Negative (Negative); Urine Character Clear (Clear); Urine Color Yellow; Urine Glucose 3+ (Negative); Urine Ketone Negative (Negative); Urine Leukocyte Negative (Negative); Urine Nitrite Negative (Negative); Urine Occult Blood Negative (Negative); Urine Specific Gravity 1.015 (<1.030); Urine Urobilinogen Negative (Neg - 1+)
[2023-10-31] MEDS: NOVOLOG vial 10 UNITS SC ×2 (13:09→16:12)
[2023-10-31] MEDS: KLONOPIN 1 MG PO (15:10)
[2023-10-31] MEDS: GLUCOPHAGE 1000 MG PO (16:12)
[2023-10-31] MEDS: DEPAKOTE (12 HR RELEASE) 1000 MG PO ×2 (16:12→21:55)
[2023-10-31] MEDS: COLACE 100 MG PO (20:02)
[2023-10-31] MEDS: ADVAIR HFA 115/21 MCG INHALER 2 PUFF INH (20:28)
[2023-10-31] MEDS: ZYPREXA 10 MG PO (21:54)
[2023-10-31] MEDS: MELATONIN 6 MG PO (21:54)
[2023-10-31] MEDS: KLONOPIN 1.5 MG PO (21:54)
[2023-10-31] MEDS: PRAVACHOL 80 MG PO (21:55)
[2023-10-31 22:32] VITALS: BP 145/91
[2023-11-01] MEDS: SYNTHROID 75 MCG PO (06:59)
[2023-11-01 07:34] LABS: Depakane 94.1 ug/ml (50.0-120.0)
[2023-11-01] MEDS: ADVAIR HFA 115/21 MCG INHALER 2 PUFF INH ×2 (08:00→20:36)
[2023-11-01 08:31] LABS: TSH Reflex To Free T4 3.53 uIU/ml (0.47-4.68)
[2023-11-01 08:59] LABS: Glucose - Point of Care 161 mg/dl (70-99)
[2023-11-01 09:18] VITALS: BP 127/66
[2023-11-01] MEDS: PROZAC 20 MG PO (09:22)
[2023-11-01] MEDS: ZYPREXA 5 MG PO (09:22)
[2023-11-01] MEDS: GLUCOPHAGE 1000 MG PO ×2 (09:22→17:04)
[2023-11-01] MEDS: COLACE 100 MG PO ×2 (09:22→20:13)
[2023-11-01] MEDS: FARXIGA 10 MG PO (09:23)
[2023-11-01] MEDS: ZYLOPRIM 300 MG PO (09:23)
[2023-11-01] MEDS: LASIX 40 MG PO (09:23)
[2023-11-01] MEDS: DEPAKOTE (12 HR RELEASE) 1000 MG PO ×2 (09:24→20:12)
[2023-11-01] MEDS: ZETIA 10 MG PO (09:24)
[2023-11-01] MEDS: LANTUS 0.18 UNITS SC (09:25)
[2023-11-01 09:28] LABS: Folate > 20.0 ng/ml (2.76-20); Vitamin B12 509 pg/ml (239-931)
--- NOTE | 2023-11-01 09:41 | EDRN ---
Breakfast just brought in to pt. Crisis workers x2 w/ pt. Pt awaiting 303 hearing at this time.
--- NOTE | 2023-11-01 10:06 | W.PN.UPDATE ---
Update Note
Progress Note Update
patient seen chart reviewed. ms medina is pleasant this am. eating breakfast. she stipulated to up to 20 day commitment and crisis will start looking for a psych bed for her. noted even without midday dose of depakote yesterday depakote level
still 94 will cut dosage back to 1000 mg bid. she does not seem sedated from inc in zyprexa. noted b12 and folate normal ordered bc macrocytosis. continue otherwise w meds as currently.
--- NOTE | 2023-11-01 10:49 | EDRN ---
pt able to get OOB w/ slight assist and ambulate to BR w/out assist.
[2023-11-01] MEDS: NOVOLOG vial 10 UNITS SC ×2 (13:30→17:02)
[2023-11-01 13:36] LABS: Glucose - Point of Care 126 mg/dl (70-99)
[2023-11-01 13:38] VITALS: BP 112/65
--- NOTE | 2023-11-01 15:30 | EDRN ---
Pt threw two cups of water to the floor and took her oxygen off. Pt would not replace or allow this RN to replace oxygen. Pt was offered other activities to do. Pt remained upset. pt said she is upset as she wants to leave this place. Pt informed
that this type of behavior is what is keeping her in this place, like throwing things and yelling in a loud voice.
[2023-11-01 17:06] LABS: Glucose - Point of Care 134 mg/dl (70-99)
[2023-11-01] MEDS: PRAVACHOL 80 MG PO (17:07)
--- NOTE | 2023-11-01 17:51 | EDRN ---
Karlo Leigh PA in room w/pt at this time.
--- NOTE | 2023-11-01 18:10 | EDRN ---
Pt received dinner tray at this time and was set up and eating.
--- NOTE | 2023-11-01 18:41 | EDRN ---
Pharmacist called to send depakote as not showing as available in [facility].
[2023-11-01 20:00] VITALS: BP 148/75
[2023-11-01] MEDS: KLONOPIN 1.5 MG PO (20:37)
[2023-11-01] MEDS: MELATONIN 6 MG PO (20:37)
[2023-11-01] MEDS: ZYPREXA 10 MG PO (20:38)
--- NOTE | 2023-11-01 20:42 | EDRN ---
Pt wished to go to sleep and requested sleeping meds at this time.
[2023-11-02 07:03] LABS: Glucose - Point of Care 129 mg/dl (70-99)
[2023-11-02] MEDS: ADVAIR HFA 115/21 MCG INHALER 2 PUFF INH ×2 (08:15→20:54)
[2023-11-02 09:11] LABS: Glucose - Point of Care 151 mg/dl (70-99)
[2023-11-02] MEDS: GLUCOPHAGE 1000 MG PO ×2 (09:11→18:00)
[2023-11-02] MEDS: FARXIGA 10 MG PO (09:11)
[2023-11-02] MEDS: ZYLOPRIM 300 MG PO (09:12)
[2023-11-02] MEDS: PROZAC 20 MG PO (09:12)
[2023-11-02] MEDS: LASIX 40 MG PO (09:12)
[2023-11-02] MEDS: ZYPREXA 5 MG PO (09:12)
[2023-11-02] MEDS: DEPAKOTE (12 HR RELEASE) 1000 MG PO ×2 (09:12→21:34)
[2023-11-02] MEDS: ZETIA 10 MG PO (09:12)
[2023-11-02] MEDS: LANTUS 0.18 UNITS SC (09:13)
[2023-11-02] MEDS: COLACE 100 MG PO ×2 (09:13→21:35)
[2023-11-02] MEDS: SYNTHROID 75 MCG PO (09:13)
[2023-11-02] MEDS: NOVOLOG vial 10 UNITS SC ×3 (09:14→18:01)
[2023-11-02 09:20] VITALS: BP 144/69; BMI 34.7
[2023-11-02 12:58] LABS: Glucose - Point of Care 154 mg/dl (70-99)
[2023-11-02 18:00] LABS: Glucose - Point of Care 99 mg/dl (70-99)
[2023-11-02] MEDS: PRAVACHOL 80 MG PO (18:58)
[2023-11-02 21:32] VITALS: BP 127/82
[2023-11-02] MEDS: ZYPREXA 10 MG PO (21:35)
[2023-11-02] MEDS: KLONOPIN 1.5 MG PO (21:35)
[2023-11-02] MEDS: MELATONIN 6 MG PO (21:40)
--- NOTE | 2023-11-02 23:59 | W.PN.UPDATE ---
Update Note
Progress Note Update
Pt seen at bedside, chart reviewed - was sleeping calmly, no acute behavioral concerns noted.
On a 303 as of 03/02/24, bed search pending
Continue current medications, recently adjusted
[2023-11-03] MEDS: GLUCOPHAGE 1000 MG PO ×2 (07:13→17:05)
[2023-11-03] MEDS: ZYLOPRIM 300 MG PO (07:13)
[2023-11-03] MEDS: COLACE 100 MG PO ×2 (07:13→20:36)
[2023-11-03] MEDS: PROZAC 20 MG PO (07:14)
[2023-11-03] MEDS: KLONOPIN 1 MG PO ×2 (07:14→14:05)
[2023-11-03] MEDS: SYNTHROID 75 MCG PO (07:14)
[2023-11-03] MEDS: ZYPREXA 5 MG PO (07:14)
[2023-11-03] MEDS: LASIX 40 MG PO (07:14)
[2023-11-03] MEDS: NOVOLOG vial 10 UNITS SC ×3 (07:14→17:11)
[2023-11-03 07:19] LABS: Glucose - Point of Care 132 mg/dl (70-99)
[2023-11-03] MEDS: LANTUS 0.18 UNITS SC (07:41)
[2023-11-03] MEDS: ZETIA 10 MG PO (07:41)
[2023-11-03] MEDS: FARXIGA 10 MG PO (07:41)
[2023-11-03] MEDS: DEPAKOTE (12 HR RELEASE) 1000 MG PO ×2 (07:41→21:58)
[2023-11-03 07:52] VITALS: BP 147/89
--- NOTE | 2023-11-03 07:54 | EDRN ---
this RN entered the pts room and the pt was sleeping, this RN woke the pt up to obtain her vital signs and the pt was agreeable to this, this RN talked to the pt about taking her morning medication including insulin and the pt was agreeable to this
as well, the pt was able to take all PO medications with no issues with diet rashmi becky at the pts request, the pt did get a little agitated and angry about the fact that her breakfast was not yet delivered and this RN asked the pt if she could
please calm down and this RN attempted to talk the pt through deep breathing techniques, PRN PO Klonopin was administered to the pt and the pt was educated on what the medication was for and the pt was agreeable to taking it, the pt was able to
settle down and the pt is currently resting in stretcher in the lowest position, side rails up x1, HOB slightly elevated, no s/s of distress, the pt is currently on 4L NC that the pt states she is on at all times, this RN offered the pt a bed bath
or potential shower if the provider allows and the pt declined, this RN provided new warm blankets for the pt, will continue to monitor the pt closely
[2023-11-03] MEDS: ADVAIR HFA 115/21 MCG INHALER 2 PUFF INH (08:04)
--- NOTE | 2023-11-03 10:36 | ED.CRISIS ---
ED Crisis Note
ED Crisis Note
Subjective:
Patient with no acute medical complaints. Awaiting placement. Medications have been ordered. Patient did ask for her CPAP which she uses at night. Setting of 10.
Objective:
Nontoxic no distress. Oxygen in place. Warm and dry.
Assessment/Plan:
Continue current medical management. Awaiting placement. Will add CPAP to regimen.
[2023-11-03 11:16] LABS: Glucose - Point of Care 140 mg/dl (70-99)
[2023-11-03 17:10] LABS: Glucose - Point of Care 178 mg/dl (70-99)
[2023-11-03] MEDS: PRAVACHOL 80 MG PO (18:18)
[2023-11-03] MEDS: ADVAIR HFA 115/21 MCG INHALER INH ×2 (20:50→20:57)
[2023-11-03] MEDS: MELATONIN 6 MG PO (21:06)
[2023-11-03] MEDS: KLONOPIN 1.5 MG PO (21:06)
[2023-11-03] MEDS: ZYPREXA 10 MG PO (21:07)
[2023-11-04 00:42] VITALS: BP 131/62
[2023-11-04] MEDS: GLUCOPHAGE 1000 MG PO ×2 (09:01→17:40)
[2023-11-04] MEDS: COLACE 100 MG PO ×2 (09:01→22:07)
[2023-11-04] MEDS: PROZAC 20 MG PO (09:02)
[2023-11-04] MEDS: FARXIGA 10 MG PO (09:02)
[2023-11-04] MEDS: DEPAKOTE (12 HR RELEASE) 1000 MG PO ×2 (09:02→22:06)
[2023-11-04] MEDS: LASIX 40 MG PO (09:03)
[2023-11-04] MEDS: ZETIA 10 MG PO (09:03)
[2023-11-04] MEDS: ZYPREXA 5 MG PO (09:03)
[2023-11-04] MEDS: ZYLOPRIM 300 MG PO (09:04)
[2023-11-04] MEDS: SYNTHROID 75 MCG PO (09:04)
[2023-11-04] MEDS: LANTUS 0.18 UNITS SC (09:04)
[2023-11-04 09:10] LABS: Glucose - Point of Care 161 mg/dl (70-99)
[2023-11-04] MEDS: ADVAIR HFA 115/21 MCG INHALER 2 PUFF INH ×2 (09:11→20:26)
[2023-11-04 09:12] VITALS: BP 146/90
[2023-11-04] MEDS: NOVOLOG vial 10 UNITS SC ×3 (09:20→17:40)
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
[2023-11-04 12:11] LABS: Glucose - Point of Care 178 mg/dl (70-99)
[2023-11-04 13:24] LABS: Glucose - Point of Care 138 mg/dl (70-99)
[2023-11-04 17:39] LABS: Glucose - Point of Care 182 mg/dl (70-99)
[2023-11-04] MEDS: PRAVACHOL 80 MG PO (18:07)
[2023-11-04 19:05] VITALS: BP 143/72
[2023-11-04] MEDS: KLONOPIN 1.5 MG PO (22:05)
[2023-11-04] MEDS: ZYPREXA 10 MG PO (22:06)
[2023-11-04] MEDS: MELATONIN 6 MG PO (22:10)
[2023-11-04 22:40] VITALS: PULSE 91
[2023-11-04 23:03] LABS: Glucose - Point of Care 107 mg/dl (70-99)
[2023-11-04 23:07] VITALS: BP 114/89
[2023-11-05] MEDS: SYNTHROID 75 MCG PO (06:51)
[2023-11-05] MEDS: ADVAIR HFA 115/21 MCG INHALER 2 PUFF INH ×2 (07:34→19:13)
[2023-11-05 08:53] LABS: Glucose - Point of Care 126 mg/dl (70-99)
[2023-11-05 09:03] VITALS: BP 107/58
[2023-11-05] MEDS: NOVOLOG vial 10 UNITS SC ×2 (09:14→17:54)
[2023-11-05] MEDS: LANTUS 0.18 UNITS SC (09:15)
[2023-11-05] MEDS: ZYLOPRIM PO ×2 (09:24→12:52)
[2023-11-05] MEDS: PROZAC PO ×2 (09:24→12:52)
[2023-11-05] MEDS: ZYPREXA PO ×3 (09:24→23:57)
[2023-11-05] MEDS: ZETIA PO ×2 (09:24→12:52)
[2023-11-05] MEDS: LASIX PO ×2 (09:25→12:52)
[2023-11-05] MEDS: DEPAKOTE (12 HR RELEASE) PO ×2 (09:25→12:51)
[2023-11-05] MEDS: COLACE PO ×2 (09:25→12:51)
[2023-11-05] MEDS: GLUCOPHAGE PO ×2 (09:25→12:52)
[2023-11-05] MEDS: FARXIGA PO ×2 (09:25→12:51)
--- NOTE | 2023-11-05 09:26 | EDRN ---
Patient refusing to take morning medications. Patient stated 'I'm on a hunger strike.' When asked why she's on a hunger strike patient stated 'I told yesterday that I have a herpes outbreak and I need my Valtrex. He couldn't even do that.'
Patient ate a small amount of her breakfast and was willing to take her insulin doses. Told patient that this RN would speak to the ED MD and have them come see her. Patient turned over on stretcher and pulled the blankets over her head. Refused to
shower when offered. Patient continues to have a strong smell of urine.
[2023-11-05 12:30] LABS: Glucose - Point of Care 87 mg/dl (70-99)
--- NOTE | 2023-11-05 12:40 | EDRN ---
Patient willing to take her meds that she refused to take this morning. Lunch dose of insulin being held per for Accu check 87. Patient medicated with her PO hypoglycemic meds.
[2023-11-05] MEDS: VALTREX 500 MG PO (12:41)
[2023-11-05] MEDS: COLACE 100 MG PO ×2 (12:43→20:20)
[2023-11-05] MEDS: GLUCOPHAGE 1000 MG PO ×2 (12:44→17:54)
[2023-11-05] MEDS: DEPAKOTE (12 HR RELEASE) 1000 MG PO ×2 (12:45→20:20)
[2023-11-05] MEDS: ZYLOPRIM 300 MG PO (12:45)
[2023-11-05] MEDS: LASIX 40 MG PO (12:46)
[2023-11-05] MEDS: ZYPREXA 5 MG PO (12:48)
[2023-11-05] MEDS: FARXIGA 10 MG PO (12:48)
[2023-11-05] MEDS: ZETIA 10 MG PO (12:49)
[2023-11-05] MEDS: PROZAC 20 MG PO (12:50)
[2023-11-05] MEDS: NOVOLOG vial SC (12:50)
--- NOTE | 2023-11-05 13:46 | W.PN.UPDATE ---
Update Note
Progress Note Update
Pt seen, lying on stretcher, more withdrawn, sleeping, reportedly uncooperative today. Pt irritable, cursing, stating she is upset/tired of being here. Pt is taking medications with no signs of side effects.
Imp: Schizoaffective d/o, on 303 for aggressive behavior
Rec: inpatient psych placement on 303 as previously noted
will continue current psych medications; will follow
[2023-11-05] MEDS: KLONOPIN 1 MG PO (14:48)
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
[2023-11-05 17:51] LABS: Glucose - Point of Care 123 mg/dl (70-99)
[2023-11-05] MEDS: PRAVACHOL 80 MG PO (17:54)
[2023-11-05 20:00] VITALS: BP 117/64
--- NOTE | 2023-11-05 23:54 | EDRN ---
At approx 2315, attempted to give patient her night time medications. Patient was asking for them and when entering the room to give medications to her she screamed'i dont want any of those medications, leave me alone' and slammed door shut. Patient
was offered medication again and encouraged that they will benefit her. Patient refused again. Patient assisted with putting on her CPAP.
[2023-11-05] MEDS: KLONOPIN PO (23:57)
[2023-11-05] MEDS: MELATONIN PO (23:57)
[2023-11-06] MEDS: SYNTHROID PO (07:57)
[2023-11-06 07:58] VITALS: BP 147/79
--- NOTE | 2023-11-06 08:01 | EDRN ---
the pt was received from previous brush fabrication supervisor RN, the pt is resting in stretcher in the lowest position, side rails up x1, HOB elevated, no s/s of distress, VS WNL, the pt is currently on 4L NC Sp02 99%, the pt stated to this RN that she is always
on 02, no c/o chest pain, no c/o SOB, the pt is refusing all AM medication, this RN asked the pt why she is deciding to refuse all medication and the pt stated to this RN, 'I don't have to take it if i don't want to and i have been here too long
this is not right, i am protesting, i won't shower, and i won't take my medications until i leave here', this RN notified the provider Dr. Patel, the pt denies needing anything at this time, one to one observation maintained, mental health
security incident response specialist outside of the pts room, security incident response specialist ordered the pts breakfast, will continue to monitor the pt closely
[2023-11-06] MEDS: ADVAIR HFA 115/21 MCG INHALER INH (08:17)
[2023-11-06 09:06] LABS: Glucose - Point of Care 134 mg/dl (70-99)
[2023-11-06] MEDS: NOVOLOG vial 10 UNITS SC ×2 (10:05→17:29)
[2023-11-06] MEDS: LANTUS 0.18 UNITS SC (10:07)
--- NOTE | 2023-11-06 10:35 | W.PN.UPDATE ---
Update Note
Progress Note Update
patient is upset that she is still here. explained to her that crisis has been working to find a bed for her but to date that has not occurred. she did with some encouragement take am meds. a shower and change of clothes was suggested. will
recheck depakote level which we decreased last week given that level was over 90 even when she had missed a dose. will continue bed search. no changes made in her meds.
[2023-11-06] MEDS: COLACE 100 MG PO ×2 (10:57→19:59)
[2023-11-06] MEDS: ZETIA 10 MG PO (10:57)
[2023-11-06] MEDS: FARXIGA 10 MG PO (10:57)
[2023-11-06] MEDS: DEPAKOTE (12 HR RELEASE) 1000 MG PO ×2 (10:57→19:59)
[2023-11-06] MEDS: GLUCOPHAGE 1000 MG PO ×2 (10:58→17:26)
[2023-11-06] MEDS: VALTREX 500 MG PO (10:59)
[2023-11-06] MEDS: LASIX 40 MG PO (10:59)
[2023-11-06] MEDS: ZYLOPRIM 300 MG PO (10:59)
[2023-11-06] MEDS: PROZAC 20 MG PO (10:59)
[2023-11-06] MEDS: ZYPREXA 5 MG PO (11:00)
[2023-11-06 13:16] LABS: Glucose - Point of Care 100 mg/dl (70-99)
[2023-11-06] MEDS: NOVOLOG vial SC (13:47)
[2023-11-06 17:22] LABS: Glucose - Point of Care 79 mg/dl (70-99)
[2023-11-06] MEDS: TYLENOL 650 MG PO (17:25)
[2023-11-06] MEDS: PRAVACHOL 80 MG PO (17:25)
[2023-11-06] MEDS: KLONOPIN 1 MG PO (17:26)
[2023-11-06] MEDS: ADVAIR HFA 115/21 MCG INHALER 2 PUFF INH (19:46)
[2023-11-06 19:55] VITALS: PULSE 77
[2023-11-06] MEDS: MELATONIN 6 MG PO (22:09)
[2023-11-06] MEDS: KLONOPIN 1.5 MG PO (22:10)
[2023-11-06] MEDS: ZYPREXA 10 MG PO (22:10)
[2023-11-07 07:37] VITALS: BP 163/78
--- NOTE | 2023-11-07 07:39 | EDRN ---
this RN entered the pts room and the pt is resting in the lowest position, side rails up x1, HOB slightly elevated, no s/s of distress, the pt is pleasant and cooperative and the pt allowed this RN to obtain her vital signs, VS WNL, the pt was on
RA, this RN asked the pt why she was on RA when the pt had stated in the past that she was on 4L NC at all times, the pt stated to this RN, 'I am not sure the lady said that i didn't need it and took me off of it', the pt was 87% on RA, this RN
placed the pt back on 4L NC and Sp02 came back up to 96%, no c/o chest pain, no c/o SOB, the pt ordered her breakfast, the pt states that she is not ready to take her medications yet until her breakfast comes, provider Dr. Tavarez notified, will
continue to monitor the pt closely
[2023-11-07] MEDS: ADVAIR HFA 115/21 MCG INHALER 2 PUFF INH ×2 (08:33→20:40)
[2023-11-07] MEDS: SYNTHROID PO (10:08)
[2023-11-07] MEDS: DEPAKOTE (12 HR RELEASE) PO (10:08)
[2023-11-07] MEDS: COLACE PO (10:08)
[2023-11-07] MEDS: FARXIGA PO (10:08)
[2023-11-07] MEDS: LANTUS SC (10:08)
[2023-11-07] MEDS: GLUCOPHAGE PO (10:08)
[2023-11-07] MEDS: ZYPREXA PO (10:09)
[2023-11-07] MEDS: LASIX PO (10:09)
[2023-11-07] MEDS: NOVOLOG vial SC (10:09)
[2023-11-07] MEDS: VALTREX PO (10:09)
[2023-11-07] MEDS: ZETIA PO (10:09)
[2023-11-07] MEDS: ZYLOPRIM PO (10:09)
[2023-11-07] MEDS: PROZAC PO (10:09)
--- NOTE | 2023-11-07 11:06 | W.PN.UPDATE ---
Addendum entered and electronically signed by Otis Gibbs MD 11/07/23 12:23:
before arrangements could be made to transfer patient back to her residence [facility] came through with a bed for her. she will be transferred to that facility as soon as ambulance can be arranged.
Original Note:
Update Note
Progress Note Update
patient seen chart reviewed. ms medina is very frustrated that she is still here. she has been denied admit but every possible psych facility. the reality is that overall she has been generally cooperative. there have been no incidents of
behavioral dyscontrol. we did make some changes in her meds. increased zyprexa to 5 mg q am and ten mg qpm and cut back depakote to 1000 mg bid as level was on the high side despite her having missed doses. she is having no ill effects at this
point. the reality is that she can be fractious and needs to be handled quite gently which does not seem to happen at her residence . granted that she does not respond gently . she alleges that she has been told she'll be sent to senior living or back to
the [facility] if for example she does not take her meds. i would suggest there may be other ways to handle this although i know there are two sides to every story. we have been able her to work with her. she is wiling to go back to her
residence and try to get along. staff will be making inquiries as to when that may be possible. depakote level should be checked in the next couple of weeks.
[2023-11-07] MEDS: FARXIGA 10 MG PO (11:18)
[2023-11-07] MEDS: ZETIA 10 MG PO (11:18)
[2023-11-07] MEDS: DEPAKOTE (12 HR RELEASE) 1000 MG PO ×2 (11:18→21:19)
[2023-11-07] MEDS: VALTREX 500 MG PO (11:19)
[2023-11-07] MEDS: PROZAC 20 MG PO (11:19)
[2023-11-07] MEDS: ZYLOPRIM 300 MG PO (11:20)
[2023-11-07] MEDS: GLUCOPHAGE 1000 MG PO ×2 (11:20→18:44)
[2023-11-07] MEDS: ZYPREXA 5 MG PO (11:20)
[2023-11-07] MEDS: COLACE 100 MG PO ×2 (11:21→21:20)
[2023-11-07 11:29] LABS: Glucose - Point of Care 192 mg/dl (70-99)
[2023-11-07] MEDS: LASIX 40 MG PO (11:30)
[2023-11-07] MEDS: NOVOLOG vial 10 UNITS SC ×3 (11:37→18:45)
[2023-11-07] MEDS: LANTUS 0.18 UNITS SC (12:31)
[2023-11-07 13:30] LABS: Glucose - Point of Care 125 mg/dl (70-99)
[2023-11-07 16:44] LABS: COVID-19 Antigen Negative (Negative)
[2023-11-07 18:28] LABS: Glucose - Point of Care 81 mg/dl (70-99)
[2023-11-07] MEDS: PRAVACHOL 80 MG PO (18:43)
[2023-11-07] MEDS: KLONOPIN 1.5 MG PO (21:19)
[2023-11-07] MEDS: MELATONIN 6 MG PO (21:20)
[2023-11-07] MEDS: ZYPREXA 10 MG PO (21:20)
== END 2023-11-07 23:05 ==
LOC: EMR 09:36
PROVIDERS: Emergency Medicine; Physician Assistant Medical; EMERGENCY PHYSICIAN Student in an Organized Health Care Education/Training Program; OTHER PHYSICIAN Psychiatry & Neurology Psychiatry
DX: R45.1 Restlessness and agitation (principal); Z11.52 Encounter for screening for COVID-19; J44.9 Chronic obstructive pulmonary disease, unspecified; I50.9 Heart failure, unspecified; I11.0 Hypertensive heart disease with heart failure; E11.9 Type 2 diabetes mellitus without complications; F31.9 Bipolar disorder, unspecified; F25.9 Schizoaffective disorder, unspecified
CPT/HCPCS: 99285; 96372 ×2; 94640; 70450; 71046; 80053; 80164; 80306; 80307; 81003; 82607; 82746; 82962; 84443; 85025; 87811; 93005; 94660

== ENCOUNTER 2024-01-06 18:19 | Emergency (ER) | payer OTHER, SELFPAY ==
[2024-01-06 18:23] VITALS: BP 176/80
[2024-01-06 18:26] VITALS: BP 176/80; BMI 37.5
[2024-01-06 18:32] LABS: Glucose - Point of Care 258 mg/dl (70-99)
[2024-01-06 18:37] LABS: % Eosinophils 10.4 % (0-6); % Immature Granulocytes 2.7 % (0-0.5); % Monocytes 10.1 % (1.7-9.3); % Neutrophils 47.8 % (42.2-75.2); Absolute Basophils 0.1 10^3/uL (0-0.2); Absolute Eosinophils 1.1 10^3/uL (0-0.7); Absolute Immature Granulocytes 0.3 10^3/uL (0-0.05); Absolute Lymphocytes 2.8 10^3/uL (1.2-3.4); Absolute Neutrophils 4.8 10^3/uL (1.4-6.5); Hematocrit 36.4 % (37.0-47.0); Hemoglobin 12.2 g/dL (12.0-16.0); Mean Corp Hgb Conc. 33.5 g/dL (33.0-37.0); Mean Corpuscular Hgb 34.1 pg (27.0-31.0); Mean Corpuscular Volume 101.7 fL (81.0-99.0); Mean Platelet Volume 9.2 fL (7.4-10.4); Nucleated Red Blood Cells % 0 %; Platelet Count 225 10^3/uL (130-400); Red Blood Cell Count 3.58 10^6/uL (4.20-5.40); Red Cell Dist. Width 13.9 % (11.5-14.5); White Blood Cell Count 10.1 10^3/uL (4.8-10.8)
[2024-01-06 18:59] LABS: ALT (SGPT) 19 U/L (0-35); AST (SGOT) 25 U/L (14-36); Alkaline Phosphatase 50 U/L (38-126); Blood Urea Nitrogen 48 mg/dl (7-17); Calcium 9.8 mg/dl (8.4-10.2); Carbon Dioxide 35 mmol/L (22-30); Chloride 94 mmol/L (98-107); Estimated Creatinine Clearance 56 ml/min; Glucose 246 mg/dl (70-99); Sodium 141 mmol/L (135-145); Total Bilirubin 0.3 mg/dl (0.2-1.3); Total Protein 6.6 g/dl (6.3-8.2); eGFR 56.46
--- NOTE | 2024-01-06 19:53 | ED.GENMED ---
History of Present Illness
General
Chief Complaint: Crisis Evaluation
Source: [facility] and [facility]
Exam Limitations: developmental stage
Time Seen by Provider: 01/06/24 19:26
Nursing documentation reviewed up to this point in time: agreed with
History of Present Illness
History of Present Illness:
63 female from [facility] resident presents with a laceration/abrasion to her left and right wrist apparently was mad at the staff due to her TV not working get angry through the TV cut her wrists no other coingestions hypertensive and diabetic
states she is feeling better now would like to be discharged
Past History
Past History
ED Past Medical History: Asthma, COPD, HTN, Hypercholesterolemia, IDDM, Hypothyroidism, Psychiatric (Schizoaffective disorder, borderline personality disorder, major depressive disorder, suicide attempt) and Other (SBO,)
ED Past Surgical History: Appendectomy and Cholecystectomy
Social History
Tobacco: Non-smoker
Alcohol: None
Drug: None
Personal: Single
Living: other (usp)
Employment: Not employed
Family History
Family History: Unable to obtain
Review of Systems
Review of Systems
Other source history: transfer record
All Other Systems: Not applicable
Phy Exam
Physical Exam
Physical Exam:
Physical Exam
General: Special-needs female on oxygen
Neck: No jaw
Heart: s1/s2 regular rate and rhythm, no murmur. equal radial pulses.
Lungs: no acute respiratory distress. clear bilaterally
Neuro: alert and oriented
Skin: no rash
Psychiatric: Agitated but easily redirectable
Extremities: Superficial abrasion the right wrist 5 to 6 cm superficial abrasion to the left wrist, strong radial pulses bilaterally
Course
Orders/Labs/Results
Orders:
Orders
01/06/24 18:31
Complete Blood Count/With Diff Urgent
Comprehensive Metabolic Panel Urgent
01/06/24 18:33
1:1 Observation - Suicide/ Violent Behavior As Directed
Crisis Consult Urgent
Reason for Consult: Suicidal
01/06/24 19:46
Tetanus/Diphth/Acelpertussis [Adacel] 0.5 ml IM .ONCE ONE
Forearm, Left 2 View [CR Forearm - Left 2 View] Urgent
Comment:
Reason For Exam: fb
Forearm, Right 2 View [CR Forearm - Right 2 View] Urgent
Comment:
Reason For Exam: fb
Abnormal Lab Results
01/06/24
18:31
RBC 3.58 L 10^6/uL
(4.20-5.40)
Hct 36.4 L %
(37.0-47.0)
MCV 101.7 H fL
(81.0-99.0)
MCH 34.1 H pg
(27.0-31.0)
Abs Immat Gran (auto) 0.3 H 10^3/uL
(0-0.05)
Absolute Monos (auto) 1.0 H 10^3/uL
(0.1-0.6)
Absolute Eos (auto) 1.1 H 10^3/uL
(0-0.7)
Immature Gran % 2.7 H %
(0-0.5)
Monocytes % 10.1 H %
(1.7-9.3)
Eosinophils % 10.4 H %
(0-6)
Chloride 94 L mmol/L
(98-107)
Carbon Dioxide 35 H mmol/L
(22-30)
BUN 48 H mg/dl
(7-17)
Creatinine 1.1 H mg/dL
(0.6-1.0)
Glucose 246 H mg/dl
(70-99)
POC Glucose 258 H mg/dl
(70-99)
01/06/24 18:31
01/06/24 18:31
Vital Signs
Initial and Last Documented VS:
Initial Vital Signs
BP
176/80
01/06/24 18:23
Last Documented Vital Signs
Temp Pulse Resp BP Pulse Ox
98.5 F 104 20 176/80 93
01/06/24 18:26 01/06/24 18:26 01/06/24 18:26 01/06/24 18:26 01/06/24 18:30
MDM/Problems Addressed
Differential Diagnosis Includes:
Abrasions no signs of tendon injury no signs of arterial injury, will update tetanus, as present this year she is in a monitored setting and not suspect she overdosed on any meds
MDM/Problems Addressed:
Anxiety depression self-harm
Chronic conditions affecting care:
Chronic oxygen hypertension special needs mental retardation diabetes
Chronic conditions affecting care: DM, HTN, Neurological disorder and Psychiatric illness
Acute Exacerbation and/or Progression of Chronic Illness: DM, HTN, Neurological disorder and Psychiatric illness
*Radiology
Radiology exam reviewed: preliminary read by ED provider
*Pulse Oximetry
Patient hypoxic: no
*Grain Elevator Operator Interpretation
Rate: normal
Interpretation: normal
Heart Rate: 78
Rhythm: sinus
*Critical Care Note
Total Time (30-74mins, 75-104mins- exclusive of procedures): Not Applicable
Update Note
Update Note:
Update patient appears to be at her baseline mental status she is cooperative easily redirectable she is on oxygen chronically will update her tetanus, check x-rays to look for any foreign bodies, crisis is evaluated the patient, at this point I am
not sure if she is going to be able to go back to her facility or not but ultimately that may ultimate disposition for her
Reviewed with crisis, they concur that the patient can go back to her facility
X-ray noted looks like a foreign body in the right forearm remain wounds on the left forearm will reevaluate her wound
No wounds over top where to see the foreign body perhaps this is old
ED Attending Note
-
Portions of this chart may have been created with voice recognition software.� Occasional wrong word or��sound alike� substitutions may have occurred due to the inherent limitations of voice recognition software.
Discharge Plan
Departure
Patient Disposition: Home (Routine Discharge)
Date of Disposition: 01/06/24
Time of Disposition: 21:28
Patient with high blood pressure during this ER visit?: No
Condition: Good
Covid-19: Not Applicable
Discharge Problem:
Abrasion forearm
Instructions: Taking care of cuts, scrapes, and puncture wounds, Wound Care ED
Prescriptions:
New
Triple Antibiotic 3.5mg-400 unit- 5,000 unit/gram ointment
1 applic topical DAILY Qty: 14 0RF
No Action
levothyroxine 75 MCG tablet
75 mcg PO DAILY
metformin 1,000 MG tablet
1,000 mg PO BID
allopurinol 300 MG tablet
300 mg PO DAILY
cholecalciferol (vitamin D3) 1,000 UNITS tablet
1,000 units PO DAILY
ondansetron HCl 4 MG tablet
4 mg PO Q8HPRN PRN (Reason: nausea)
acetaminophen 325 MG tablet
650 mg PO Q6HPRN PRN (Reason: mild pain)
olanzapine [Zyprexa] 10 mg Tablet
10 mg PO DAILY
melatonin 3 mg Tablet
6 mg PO HS
pravastatin 80 mg Tablet
80 mg PO DAILY
fluticasone propion-salmeterol [Advair Diskus] 100-50 mcg/dose Blister With Device
1 inh INHALATION R BID
Apidra SoloStar U-100 Insulin 100 unit/mL Insulin Pen
15 unit SC AC
dapagliflozin propanediol [Farxiga] 10 mg Tablet
10 mg PO DAILY
fluoxetine [Prozac] 10 mg Capsule
20 mg PO DAILY
furosemide 40 MG tablet
40 mg PO DAILY
multivitamin with iron Tablet
1 tab PO DAILY
loperamide 2 mg Tablet
2 mg PO Q6HPRN PRN (Reason: diarrhea)
valacyclovir 500 mg Tablet
500 mg PO DAILY
benzonatate 100 mg Capsule
100 mg PO TIDPRN PRN (Reason: COUGH)
ezetimibe [Zetia] 10 mg Tablet
10 mg PO DAILY
insulin glargine [Lantus Solostar U-100 Insulin] 100 unit/mL (3 mL) Insulin Pen
18 unit SC DAILY
Baqsimi 3 mg/actuation Douglas,Non-Aerosol
3 mg INTRANASAL DAILYPRN PRN (Reason: severe hypoglycemia )
polyethylene glycol 3350 [Miralax] 17 gram powder in packet
17 g PO BIDPRN PRN (Reason: constipation)
docusate sodium 100 mg Capsule
100 mg PO BID
guaifenesin [Mucinex] 600 mg Tablet Extended Release 12hr
1,200 mg PO BID
magnesium hydroxide [Milk of Magnesia] 400 mg/5 mL Suspension
2,400 mg PO BIDPRN PRN (Reason: constipation)
furosemide [Lasix] 20 mg tablet
40 mg PO DAILYPRN PRN (Reason: fluid) Qty: 0 0RF
albuterol sulfate 2.5 mg /3 mL (0.083 %) Solution For Nebulization
2.5 mg INHALATION R Q6HPRN PRN (Reason: sob)
levalbuterol HCl [Xopenex] 0.63 mg/3 mL Solution For Nebulization
0.63 mg INHALATION R Q8HPRN PRN (Reason: sob)
trazodone 100 mg Tablet
125 mg PO HS
lorazepam 2 mg Tablet
2 mg PO Q8HPRN PRN (Reason: anxeity)
bisacodyl [Dulcolax (bisacodyl)] 10 mg Suppository
10 mg AR [id number] PRN (Reason: if no bm on 3rd day)
alum-mag hydroxide-simeth [Iris-Lanta] 200-200-20 mg/5 mL Suspension
15 ml PO BIDPRN PRN (Reason: indigestion)
benzoyl peroxide 5 % Cleanser
1 applic TOPICAL DAILY
albuterol sulfate [ProAir HFA] 90 mcg/actuation Hfa Aerosol Inhaler
2 puff INHALATION R Q6HPRN PRN (Reason: sob)
clonazepam 1 mg tablet
1.5 mg PO HS
valproic acid 250 mg capsule
750 mg PO BID
Glucerna Shake Liquid
1 ea PO BID
Referrals:
Rakesh Hernandez DO [Family Provider] - Next open appointment
Activity Restrictions/Additional Instructions:
Wash wounds daily with soap and water use antibiotic ointment
Interventions
Interventions:
*Risk Screen - Suicide Last Done: 01/06/24 18:26
*General Assessment Last Done: 01/06/24 18:26
*Neglect/Abuse Screening Last Done: 01/06/24 18:26
ED- Fall Risk Assessment Last Done: 01/06/24 18:40
*ED COVID-19 Vaccine History Last Done: 01/06/24 18:26
ED-Psychological Assessment Last Done: 01/06/24 18:40
Discharge Date and Time
Print Language: TONGAN
[2024-01-06] MEDS: ADACEL 0.5 ML IM (20:14)
[2024-01-06] MEDS: KLONOPIN 1 MG PO (22:56)
[2024-01-06] MEDS: MELATONIN 5 MG PO (22:56)
[2024-01-06] MEDS: ZYPREXA 10 MG PO (22:57)
== END 2024-01-07 10:06 | disposition home or self-care (01) ==
LOC: EMR 18:19
PROVIDERS: Student in an Organized Health Care Education/Training Program; EMERGENCY PHYSICIAN Emergency Medicine; FAMILY PHYSICIAN Internal Medicine Geriatric Medicine
DX: S50.812A Abrasion of left forearm, initial encounter (principal); S50.811A Abrasion of right forearm, initial encounter; X78.9XXA Intentional self-harm by unspecified sharp object, initial encounter; E03.9 Hypothyroidism, unspecified; E11.9 Type 2 diabetes mellitus without complications; E78.00 Pure hypercholesterolemia, unspecified; I10 Essential (primary) hypertension; J44.89 Other specified chronic obstructive pulmonary disease; Z79.4 Long term (current) use of insulin; Z90.49 Acquired absence of other specified parts of digestive tract; Z99.81 Dependence on supplemental oxygen; F25.9 Schizoaffective disorder, unspecified; F32.A Depression, unspecified; F41.9 Anxiety disorder, unspecified; F60.3 Borderline personality disorder; Z91.51 Personal history of suicidal behavior; Z23 Encounter for immunization
CPT/HCPCS: 90471; 99284; 73090; 80053; 82962; 85025; 90715

== ENCOUNTER → 2024-01-21 09:45 | Outpatient (REF) | payer OTHER, SELFPAY | LOC: HWRAD 09:45 | PROVIDERS: FAMILY PHYSICIAN Family Medicine | DX: R91.8 Other nonspecific abnormal finding of lung field (principal) | CPT/HCPCS: 71250 ==

== ENCOUNTER 2024-01-24 06:43 | Inpatient (IN) | payer OTHER, SELFPAY ==
[2024-01-24] VITALS (20 sets, daily range): BP systolic 109–201; BP diastolic 49–94; BMI 35.5
--- NOTE | 2024-01-24 05:04 | ED.GENMED ---
History of Present Illness
General
Chief Complaint: Breathing Problem
Source: patient and ambulance crew
Exam Limitations: none and clinical condition
Time Seen by Provider: 01/24/24 04:37
Nursing documentation reviewed up to this point in time: agreed with
History of Present Illness
History of Present Illness:
63-year-old female arrived during her house with a pulse ox in the low 80s, according to EMS who got report from staff. She was awakened by staff when she was found lying flat not breathing well. She is typically on 2 L. When he found that she
was in the low 80s. They increased her oxygen to 4 L and she began to sat in the low 90s. Upon arrival, her oxygen saturation was 89�so they raised her supplemental oxygen to 4 L via nasal cannula.
Vital signs are stable. Patient not hypoxic
Nursing note reviewed. I agree with nursing documentation up to this point in time.
Home Meds and allergies reviewed.
NUMBER AND COMPLEXITY OF PROBLEMS ADDRESSED AT THE ENCOUNTER
� Chronic conditions affecting care: Developmental delay, asthma, COPD, home oxygen, frequent cases of sleep apnea, chest pain, hypertension
� Acute Exacerbation and/or Progression of Chronic Illness: COPD, CHF exacerbation
� Differential Diagnosis includes: Pneumonia, congestive heart failure, viral syndrome
AMOUNT AND/OR COMPLEXITY OF DATA TO BE REVIEWED AND ANALYZED
I performed an independent evaluation of the following and my interpretation is:
EKG:
Pulse Ox: Patient is hypoxic
Retread Operator: Sinus Rhythm consistent with tach
CT:
X-rays: Left lower lobe pneumonia
Ultrasound:
Laboratory Studies:
Other:
Review of other/old records:
Clinical information was obtained by an independent historian:
Prescriptions/Medications Considered but not given:
Further testing considered but not performed:
RISK OF COMPLICATIONS AND/OR MORBIDITY OR MORTALITY OF PATIENT MANAGEMENT
Social determinants of health affecting care: Good Social Support
Discussion with other providers:
Escalation of care including admission/observation vs risk of discharge considered: After being observed in the emergency department, patient is stable for discharge.
CRITICAL CARE NOTE:
Total Time (exclusive of procedures):
Update:
Past History
Past History
ED Past Medical History: Asthma, COPD, HTN, Hypercholesterolemia, IDDM, Hypothyroidism, Psychiatric (Schizoaffective disorder, borderline personality disorder, major depressive disorder, suicide attempt) and Other (SBO,)
ED Past Surgical History: Appendectomy and Cholecystectomy
Social History
Tobacco: Non-smoker
Alcohol: None
Drug: None
Personal: Single
Living: other (long term)
Employment: Not employed
Family History
Family History: Unable to obtain
Phy Exam
General Physical Exam
General Presentation: mild distress
General age: appears stated age
General Skin: dry
General Habitus: elderly and poor hygiene
General Mental: anxious, confused and usual mental status
General Hydration: dry mucous membranes
General Chronic Disability: mental retardation
ENT Exam
ENT Exam: EOMI, pharynx normal, neck supple, normocephalic and other (Edentulous)
Eye Exam
Eye Exam: PERRL, cornea clear and conjunctiva normal
Cardiovascular Exam
Cardiovascular Exam: regular rate/rhythm, no edema, no murmur and normal peripheral pulses
Pulmonary Exam
Pulmonary Exam: decreased breath sounds (Decreased breath sounds on the left), generalized wheezing and respiratory distress
Cough: coarse cough
Gastrointestinal Exam
Gastrointestinal Exam: normal bowel sounds, non tender, soft, no organomegaly, no pulsatile mass and non distended
Neurological Exam
Neurological Exam: alert (At baseline mental status) and no motor deficits
Musculoskeletal Exam
Musculoskeletal Exam: full ROM and no edema
Skin Exam
Skin Exam: normal color, warm/dry, no rash and no petechia
Psychiatric Exam
Psychiatric Exam: normal mood/affect
Scores
Heart Failure Risk
Heart Failure Risk Score: Yes
History of Stroke or TIA: No
History of intubation for respiratory distress: Yes
Heart rate on ED arrival >/= 110: Yes
SaO2 <90% on arrival on room air: Yes
HR >/=110 during 3min walk test (or too ill to perform test): Yes
ECG has acute ischemic changes: No
Urea >/=12mmol/L (BUN 33.6mg/dL): Yes
Serum CO2>/=35mmol/L: Yes
Troponin I or T elevated to CA Level (0.4mg/dL): No
NT-proBNP >/=5,000ng/L (5,000pg/ml): No
HF Risk Score: 8
Admission Status: VERY HIGH RISK 81.2% Consider admission to hospital
Sepsis
Sepsis Screening
Sepsis Assessment: Sepsis
Sepsis Screening: Need for mechanical ventilation or BiPAP
Sepsis Screen
Sepsis Screen: Sepsis
Date: 01/24/24
Time: 07:04
Course
Orders/Labs/Results
Orders:
Orders
01/24/24 04:25
EKG [Electrocardiogram (*1)] Urgent
Reason for Study: Shortness of Breath
01/24/24 04:26
EKG- Treatment ONCE
01/24/24 04:30
1:1 Observation - Suicide/ Violent Behavior As Directed
01/24/24 04:57
Basic Metabolic Panel Urgent
Comment: NO K
Complete Blood Count/With Diff Urgent
NT-proBNP Urgent
PTT Urgent
Prothrombin Time Urgent
Troponin I Urgent
CR Chest Portable - 1 View Urgent
Comment:
Reason For Exam: dyspnea
Reason Study Needs to be Portable: Patient Unstable
01/24/24 05:02
Aztreonam [Azactam] 2,000 mg IV NOW STA
01/24/24 05:11
Linezolid 600 mg/300 ml [Zyvox 600 mg] 300 ml IV NOW
01/24/24 05:30
Lactic Acid Q4H
Comment: CANCEL 2nd LACTIC ACID IF 1st LACTIC ACID IS LESS THAN 2
Procalcitonin Urgent
PCT Algorithmm Indication: Sepsis
Blood Culture Q30M
BERNADETTE Source: Blood/Venous
Specimen Description:
01/24/24 06:00
Urinalysis Reflex To Culture Urgent
Date Specimen was Collected: 01/24/24
Time Specimen was Collected: 05:59
01/24/24 06:11
Admit/Transfer Patient As Directed
Co-Sign Provider:
Level of Care: Inpatient admission
Assign to:: IMU- Intermediate Care
Physician / Group: Moise
Diagnosis: LLL Pneumonia, Acute on Chronic Hypoxemic Respiratory Failure, CHF
Reason for Hospitalization: LLL Pneumonia, Acute on Chronic Hypoxemic Respiratory Failure, CHF
Expected length of stay greater than two midnights?: Yes
ELOS- Estimated Length of Stay in days: 4
I certify the patient meets the requirements for IP care: Yes
PRN Pain Medication Management As Directed
May give lesser potent ordered pain med per pt: Yes
preference::
Protocol:: Medication orders for pain may be administered in a
manner that supports deferring to patient preference
when the pt is:
- Requesting an ordered lesser potent pain medication.
Least to most potent pain medications are defined
as: acetaminophen < NSAID < tramadol < opioids
(morphine, oxycodone, hydromorphone).
- Requesting a lesser dose of the same medication IF
ORDERED.
- Requesting a less intrusive route of administration
if both routes are prescribed by the provider (PO <
IV).
01/24/24 06:13
Furosemide [Lasix] 40 mg IV NOW STA
01/24/24 06:15
Code Status As Directed
Resuscitation Status: Full Code
01/24/24 06:29
COVID-19 Antigen Urgent
Source: Nasal Swab
Influenza A+B Rapid Molecular Urgent
BERNADETTE Source: Nasal Swab
Specimen Description:
Abnormal Lab Results
01/24/24 01/24/24 01/24/24
04:57 05:30 06:00
WBC 17.8 H 10^3/uL
(4.8-10.8)
RBC 3.27 L 10^6/uL
(4.20-5.40)
Hgb 11.4 L g/dL
(12.0-16.0)
Hct 35.2 L %
(37.0-47.0)
MCV 107.6 H fL
(81.0-99.0)
MCH 34.9 H pg
(27.0-31.0)
MCHC 32.4 L g/dL
(33.0-37.0)
RDW 14.6 H %
(11.5-14.5)
Abs Immat Gran (auto) 0.2 H 10^3/uL
(0-0.05)
Absolute Neuts (auto) 14.2 H 10^3/uL
(1.4-6.5)
Absolute Lymphs (auto) 0.9 L 10^3/uL
(1.2-3.4)
Absolute Monos (auto) 1.5 H 10^3/uL
(0.1-0.6)
Absolute Eos (auto) 0.8 H 10^3/uL
(0-0.7)
Immature Gran % 1.2 H %
(0-0.5)
Neutrophils % 79.7 H %
(42.2-75.2)
Lymphocytes % 5.3 L %
(20.5-51.1)
PT 14.8 H Sec
(11.4-14.6)
Chloride 93 L mmol/L
(98-107)
Carbon Dioxide 37 H mmol/L
(22-30)
BUN 35 H mg/dl
(7-17)
Glucose 147 H mg/dl
(70-99)
Procalcitonin 0.66 H ng/ml
(0.0-0.25)
Urine Ketones Trace A
(Negative)
Urine Glucose 3+ A
(Negative)
01/24/24 04:57
01/24/24 04:57
Vital Signs
Initial and Last Documented VS:
Initial Vital Signs
Temp
97.9 F
01/24/24 04:21
Last Documented Vital Signs
Temp Pulse Resp BP Pulse Ox
97.9 F 108 49 146/52 92
01/24/24 04:21 01/24/24 06:15 01/24/24 06:00 01/24/24 06:15 01/24/24 06:00
*Critical Care Note
Total Time (30-74mins, 75-104mins- exclusive of procedures): Not Applicable
ED Attending Note
-
Portions of this chart may have been created with voice recognition software.� Occasional wrong word or��sound alike� substitutions may have occurred due to the inherent limitations of voice recognition software.
Discharge Plan
Departure
Patient Disposition: Admit
Date of Disposition: 01/24/24
Time of Disposition: 05:53
Presentation/result/management discussed w/ accepting MD/DO: Hospitalist
Condition: Fair
Discharge Problem:
Sepsis, Pneumonia, Hypoxia
Interventions
Interventions:
*Risk Screen - Suicide Last Done: 01/24/24 04:26
*General Assessment Last Done: 01/24/24 04:26
*Neglect/Abuse Screening Last Done: 01/24/24 04:26
*ED COVID-19 Vaccine History Last Done: 01/24/24 04:26
ED- Cardiac Assessment Last Done: 01/24/24 04:31
ED- Pulmonary Assessment Last Done: 01/24/24 04:31
[2024-01-24] MEDS: AZACTAM 2000 MG IV (05:35)
[2024-01-24] MEDS: ZYVOX 600 MG 300 IV (05:35)
[2024-01-24 05:43] LABS: % Basophils 0.6 % (0-2); % Eosinophils 4.6 % (0-6); % Immature Granulocytes 1.2 % (0-0.5); % Lymphocytes 5.3 % (20.5-51.1); % Monocytes 8.6 % (1.7-9.3); % Neutrophils 79.7 % (42.2-75.2); Absolute Basophils 0.1 10^3/uL (0-0.2); Absolute Eosinophils 0.8 10^3/uL (0-0.7); Absolute Immature Granulocytes 0.2 10^3/uL (0-0.05); Absolute Lymphocytes 0.9 10^3/uL (1.2-3.4); Absolute Monocytes 1.5 10^3/uL (0.1-0.6); Absolute Neutrophils 14.2 10^3/uL (1.4-6.5); Hematocrit 35.2 % (37.0-47.0); Hemoglobin 11.4 g/dL (12.0-16.0); Mean Corp Hgb Conc. 32.4 g/dL (33.0-37.0); Mean Corpuscular Hgb 34.9 pg (27.0-31.0); Mean Corpuscular Volume 107.6 fL (81.0-99.0); Mean Platelet Volume 9.3 fL (7.4-10.4); Nucleated Red Blood Cells % 0 %; Platelet Count 176 10^3/uL (130-400); Red Blood Cell Count 3.27 10^6/uL (4.20-5.40); Red Cell Dist. Width 14.6 % (11.5-14.5); White Blood Cell Count 17.8 10^3/uL (4.8-10.8)
[2024-01-24 05:52] LABS: Lactic Acid 1.1 mmol/L (0.7-2.0)
[2024-01-24 06:03] LABS: Blood Urea Nitrogen 35 mg/dl (7-17); Calcium 9.2 mg/dl (8.4-10.2); Carbon Dioxide 37 mmol/L (22-30); Chloride 93 mmol/L (98-107); Glucose 147 mg/dl (70-99); INR 1.11; PT 14.8 Sec (11.4-14.6); Sodium 140 mmol/L (135-145); eGFR > 60.00
[2024-01-24 06:04] LABS: APTT 30.8 Sec (23.4-35.0)
[2024-01-24 06:05] LABS: NT-proBNP 1360 pg/ml; Troponin I < 0.012 ng/ml
[2024-01-24 06:08] LABS: Procalcitonin 0.66 ng/ml (0.0-0.25)
[2024-01-24] MEDS: LASIX 40 MG IV ×2 (06:15→16:15)
[2024-01-24 06:18] LABS: Urine Albumin Trace (Neg - Trace); Urine Bilirubin Negative (Negative); Urine Character Clear (Clear); Urine Color Yellow; Urine Glucose 3+ (Negative); Urine Ketone Trace (Negative); Urine Leukocyte Negative (Negative); Urine Nitrite Negative (Negative); Urine Occult Blood Negative (Negative); Urine Specific Gravity 1.005 (<1.030); Urine Urobilinogen 1+ (Neg - 1+)
--- NOTE | 2024-01-24 06:23 | HPS.HSE ---
Family Physician
-
Family Physician: NOT KNOW UNKNOWN - PT DOES
Chief Complaint
-
SOB, Cough
History of Present Illness
Patient is a 63y F with PMH significant for schizophrenia, DM-II and COPD who presents to ED complaining of cough and SOB. [facility] She was reportedly noted
to have cough x several days with increasing O2 requirements. She is typically on 2 lpm of supplemental O2 at baseline. This evening, patient was noted to be hypoxemic (81%) despite increase in supplemental O2 to 4 lpm. Patient states that she
has been complaining of cough, chest discomfort and SOB for the past month or so. This evening her symptoms were more severe and - with the noted hypoxemia - she was sent to the ED for further evaluation.
There is an order for azithromycin in the [facility]p MAR, but it does not appear that she has received any doses yet.
No noted PRN or 'extra' Lasix doses noted as given.
Medical History
Past Medical History
Past Medical History: Reports Other
Additional Past Medical History:
Bipolar Disorder / Schizophrenia
DM-II
Hypertension
Hypothyroidism
Obesity
COPD / Asthma
Anemia of Chronic Disease
GERD
Chronic HFpEF
Past Surgical History: Reports Other
Additional Past Surgical History:
Appendectomy
Cholecystectomy
Social History
Tobacco: Non-smoker
Alcohol: None
Drug: None
Living: Other ([facility])
Family History
Family History: Not pertinent
Allergies / Home Medications
Allergies reflects when Allergies were last updated in [employer].
Home Medications with original date entered in [employer]
Allergy/Medication List:
Allergies
Allergy/AdvReac Type Severity Reaction Status Date / Time
bee venom protein (honey bee) Allergy Unknown Verified 01/24/24 04:38
benzonatate Allergy Rash Verified 01/24/24 04:38
[From Tessalon Perles]
codeine Allergy Unknown Verified 01/24/24 04:38
egg Allergy Unknown Verified 01/24/24 04:38
fluphenazine [From Prolixin] Allergy Unknown Verified 01/24/24 04:38
haloperidol [From Haldol] Allergy Unknown Verified 01/24/24 04:38
hydroxychloroquine Allergy Unknown Verified 01/24/24 04:38
[From Plaquenil]
Influenza Virus Vaccines Allergy Unknown Verified 01/24/24 04:38
iodine Allergy Unknown Verified 01/24/24 04:38
Penicillins Allergy unknown; Verified 01/24/24 04:38
tolerated
cephalexin
June 2020
shellfish derived Allergy Unknown Verified 01/24/24 04:38
Sulfa (Sulfonamide Allergy Unknown Verified 01/24/24 04:38
Antibiotics)
tomato Allergy Unknown Verified 01/24/24 04:38
Home Medications
allopurinol 300 mg tablet 300 mg PO DAILY Gout 06/08/20
cholecalciferol (vitamin D3) 25 mcg (1,000 unit) tablet 1,000 units PO DAILY Supplement 06/08/20
levothyroxine 75 mcg tablet 75 mcg PO DAILY Thyroid 06/08/20
metformin 1,000 mg tablet 1,000 mg PO BID Diabetes 06/08/20
ondansetron HCl 4 mg tablet 4 mg PO Q8HPRN PRN nausea 05/04/21
acetaminophen 325 mg tablet 650 mg PO Q6HPRN PRN mild pain 05/28/21
dapagliflozin propanediol 10 mg tablet (Farxiga) 10 mg PO DAILY Diabetes 09/13/21
fluticasone 100 mcg-salmeterol 50 mcg/dose blistr powdr for inhalation (Advair Diskus) 1 inh inhalation R BID Lung/breathing issues 09/13/21
insulin glulisine U-100 100 unit/mL subcutaneous pen (Apidra SoloStar U-100 Insulin) 12 unit SC AC Diabetes 09/13/21
melatonin 3 mg tablet 5 mg PO HS Sleep 09/13/21
olanzapine 10 mg tablet (Zyprexa) 10 mg PO HS mental health 09/13/21
pravastatin 80 mg tablet 80 mg PO DAILY High cholesterol 09/13/21
fluoxetine 10 mg capsule (Prozac) 20 mg PO DAILY Depression 02/07/22
furosemide 40 mg tablet 40 mg PO DAILY Fluid retention/Swelling 02/08/22
multivitamin with iron 1 tab PO DAILY Supplement 07/08/22
benzonatate 100 mg capsule 100 mg PO TIDPRN PRN COUGH 04/12/23
ezetimibe 10 mg tablet (Zetia) 10 mg PO DAILY High Cholesterol 04/12/23
glucagon 3 mg/actuation nasal spray (Baqsimi) 3 mg intranasal DAILYPRN PRN severe hypoglycemia 04/12/23
insulin glargine 100 unit/mL (3 mL) subcutaneous pen (Lantus Solostar U-100 Insulin) 15 unit SC HS Diabetes 04/12/23
loperamide 2 mg tablet 2 mg PO Q6HPRN PRN diarrhea 04/12/23
polyethylene glycol 3350 17 gram oral powder packet (Miralax) 17 g PO BIDPRN PRN constipation 04/12/23
valacyclovir 500 mg tablet 500 mg PO DAILY viral infection 04/12/23
docusate sodium 100 mg capsule 100 mg PO BID Constipation 07/26/23
guaifenesin 600 mg tablet, extended release 12 hr (Mucinex) 600 mg PO BID 07/26/23
magnesium hydroxide 400 mg/5 mL oral suspension (Milk of Magnesia) 2,400 mg PO BIDPRN PRN constipation 07/26/23
furosemide 20 mg tablet (Lasix) 40 mg (2 x 20 mg) PO DAILYPRN PRN fluid #0 tabs 07/30/23
albuterol sulfate 2.5 mg/3 mL (0.083 %) solution for nebulization 2.5 mg inhalation R Q6HPRN PRN sob 10/31/23
aluminum-mag hydroxide-simethicone 200 mg-200 mg-20 mg/5 mL oral susp (Iris-Lanta) 15 ml PO BIDPRN PRN indigestion 10/31/23
benzoyl peroxide 5 % topical cleanser 1 applic topical DAILY boil-prone areas 10/31/23
clonazepam 1 mg tablet 1.5 mg PO HS Mental Health/Anxiety 10/31/23
lorazepam 2 mg tablet 2 mg PO Q8HPRN PRN anxeity 10/31/23
valproic acid 250 mg capsule 500 mg PO Q8H mental health 10/31/23
amlodipine 5 mg tablet 5 mg PO DAILY 01/24/24
olanzapine 5 mg tablet 5 mg PO [id number] PRN Agitation 01/24/24
pantoprazole 40 mg tablet,delayed release 40 mg PO DAILY 01/24/24
theophylline 300 mg capsule,extended release 24 hr 300 mg PO DAILY 01/24/24
Review of Systems
-
History Source: Patient
A 12 point ROS was completed and negative except as noted: Yes
Constitutional: Reports Fatigue; Denies Fever or Chills
EENT: Denies Sore Throat
Respiratory: Reports Cough and Trouble Breathing
Cardiac: Reports Chest Pain; Denies Palpitations or Syncope
Abdomen/GI: Denies Abdominal Pain, Nausea, Vomiting or Diarrhea
: Denies Dysuria, Frequency or Flank Pain
Musculoskeletal: Denies Joint Pain or Edema
Neurological: Reports Headache and Weakness; Denies Dizzy
Psych: Denies Depression, Anxiety or Suicidal
Physical Exam
Vital Signs
Vital Signs
Temp Pulse Resp BP Pulse Ox
97.9 F 108 49 146/52 92
01/24/24 04:21 01/24/24 06:15 01/24/24 06:00 01/24/24 06:15 01/24/24 06:00
Physical Exam
General: Other (63y F in mild distress due to dyspnea. Awake, alert and interactive.)
HEENT: Moist mucous membranes, PERRLA and Other (Edentulous)
Respiratory: Other (Bibasilar rales about 1/2 up. No focal wheeze / rhonchi.)
Cardiac: S1/S2 and Tachycardia; No Murmur
GI: Soft, Non Tender, Non Distended, Normal Bowel Sounds and Other (Obese.)
Musculoskeletal: No Clubbing, No Cyanosis and No Edema
Neuro: AO x 3
Laboratory Results
-
01/24/24 04:57
01/24/24 04:57
Laboratory Results
PT 14.8 Sec (11.4-14.6) H 01/24/24 04:57
INR 1.11 01/24/24 04:57
APTT 30.8 Sec (23.4-35.0) 01/24/24 04:57
Lactic Acid Cancelled 01/24/24 09:15
Total Bilirubin Cancelled 01/24/24 04:57
AST Cancelled 01/24/24 04:57
ALT Cancelled 01/24/24 04:57
Alkaline Phosphatase Cancelled 01/24/24 04:57
Troponin I < 0.012 ng/ml 01/24/24 04:57
Impression/Plan
-
A/P: Patient is a 63y F with PMH significant for schizophrenia, DM-II and COPD who presents to ED complaining of cough and SOB.
Acute on Chronic Hypoxemic Respiratory Insufficiency
- Admit for further evaluation and treatment.
- Suspect multifactorial with components of LLL pneumonia and pulmonary edema (see below)
- Treat individual issues as noted below.
- Continue supplemental O2. NIPPV if needed.
- Titrate as needed (baseline prior was 2lpm).
LLL Pneumonia
- CXR with dense opacity in the L base.
- Patient reports cough productive of white mucus. Noted leukocytosis with L shift.
- IV abx with ceftriaxone and doxycycline for now.
- Follow for clinical improvement.
- Consider additional pulmonary imaging if symptoms worsen or persist.
- Supportive care including mucolytics, nebs, etc.
Acute on Chronic HFpEF
- Weight is increased from prior noted baseline per our records.
- BNP significantly elevated from prior as well.
- CXR and exam are c/w pulmonary edema.
- IV Lasix now and BID.
- Follow I/Os, daily weights, etc.
- Update Echo.
- Follow for impact on cough, dyspnea, hypoxemia.
COPD without Acute Exacerbation
Acute Bronchitis
- No active wheezing appreciated on exam, but cough x 2 weeks and increased dyspnea.
- Continue inhaled corticosteroids, nebs, etc.
- Note med changes since prior admission - specifically addition of theophylline.
- Will hold this for now.
Aspiration Risk
- Patient with prior determination of swallow dysfunction and aspiration risk.
- She is admittedly reluctant to follow modified diets / recommendations.
- On most recent admission, she refuse Speech evaluation at all.
- Aspiration precautions.
- Speech evaluation (if patient amenable) - follow recommendations.
Schizoaffective Disorder
- Stable. No current agitation / acute mood changes.
- Continue current psychotropic med regimen.
- Follow for any new / worsening symptoms.
Benign Hypertension
�- Stable.� Continue home med regimen.
DM-II
�- Stable.� Continue outpatient Farxiga. Hold metformin acutely.
- Continue basal : bolus insulin regimen.
�- SSI coverage as needed.
- Update A1C.
Hypothyroidism
�- Stable.� Continue home T4 supplementation.
Obesity due to excess calories and insulin resistance.
�- Affects all aspects of care.
�- Encourage healthy diet and increased activity with goal of weight loss.
DVT Prophylaxis:� Lovenox
Code Status:� Full
[2024-01-24 07:16] LABS: COVID-19 Antigen Negative (Negative)
[2024-01-24] MEDS: TYLENOL 650 MG PO ×2 (07:54→14:00)
--- NOTE | 2024-01-24 08:35 | W.PN.HOSP.TC ---
Today's Communication/Plan
-
Titrate Oxygen supplementation as necessary goal sat >=92%
chest PT VEST therapy
Pulm Cardio Infectious disease eval
cont Abx
Glycemic Control
Diuresis as per Cardio
Assessment / Plan
Assessment / Plan
Physical Exam
General: Mild distress due to dyspnea. Obese
HEENT: Moist mucous membranes, PERRLA
Respiratory: Bibasilar rales. No focal wheeze / rhonchi
Cardiac: S1/S2 Tachycardia; No Murmur
GI: Soft, Non Tender, Non Distended, Normal Bowel Sounds
Musculoskeletal: No Clubbing, No Cyanosis and No Edema
Neuro: AO x 3 follows simple commands
A/P: Patient is a 63y F with PMH significant for schizophrenia, DM-II and COPD who presents to ED complaining of cough and SOB.
Acute on Chronic Hypoxemic Respiratory Insufficiency
- IMU admit
- Suspect multifactorial with components of LLL pneumonia vs atelectasis vs pulmonary edema
-Saturating 88% only with 13L
- Continue supplemental O2. Hi Flow if necessary to maintain saturation 92%
- Titrate as needed (baseline prior was 2lpm).
LLL Pneumonia vs Atelectasis Mucus plugging
- CXR with dense opacity in the L base concerning for Pneumonia vs Atelectasis mucus plugging
- Pulm eval requested
- Cont abx ceftriaxone and doxycycline. ID eval requested
- Follow for clinical improvement.
- Supportive care including mucolytics, nebs, Chest PT VEST therapy
Acute on Chronic HFpEF
- Weight is increased from prior noted baseline per our records.
- BNP significantly elevated from prior as well.
- IV Lasix BID.
- Monitor I/Os, daily weights
- ECHO appreciated EF 60-65% compared with prior ECHO Feb 2022 mild aortic stenosis new finding.
- Cardio Eval Requested
COPD without Acute Exacerbation
Acute Bronchitis
- No active wheezing appreciated on exam, but cough x 2 weeks and increased dyspnea.
- Continue inhaled corticosteroids, nebs
Aspiration precautions.
Speech evaluation (if patient amenable)
Schizoaffective Disorder
- Stable. No current agitation / acute mood changes.
- Continue current psychotropic med regimen.
- Follow for any new / worsening symptoms.
Benign Hypertension
�- Stable.� Continue home med regimen.
DM-II
�- Stable.� Continue outpatient Farxiga. Hold metformin acutely.
- Continue basal : bolus insulin regimen.
�- SSI coverage as needed.
- Update A1C.
Hypothyroidism
�- Continue home T4 supplementation.
Obesity due to excess calories and insulin resistance.
�- Affects all aspects of care.
�- Encourage healthy diet and increased activity with goal of weight loss.
DVT Prophylaxis:� Lovenox
Code Status:� Full
I spent a total of 60 minutes with the patient or on the floor. More than 50% of this time involved counseling and coordination of care.
Anticipated Discharge: > 48 hours
Subjective/Interval History
-
Date of Service: January 24, 2024
Seen and examined at bedside in mild distress/discomfort. AOx3. Following commands. requiring 13L but only saturating 88%. Fever noted.
Objective Data
-
Labs:
Laboratory Results
01/24/24
04:57
WBC 17.8 H
Hgb 11.4 L
Hct 35.2 L
Plt Count 176
PT 14.8 H
INR 1.11
APTT 30.8
Sodium 140
Potassium
Chloride 93 L
Carbon Dioxide 37 H
BUN 35 H
Creatinine 0.9
Glucose 147 H
Calcium 9.2
Total Bilirubin Cancelled
AST Cancelled
ALT Cancelled
Alkaline Phosphatase Cancelled
Vital Signs:
Vital Signs
Temp Pulse Resp BP Pulse Ox
101.5 F H 109 42 126/56 92
01/24/24 07:46 01/24/24 08:00 01/24/24 08:00 01/24/24 07:46 01/24/24 08:00
[2024-01-24] MEDS: ADVAIR HFA 45/21 MCG INHALER 2 PUFF INH ×2 (10:32→19:13)
[2024-01-24] MEDS: DUONEB 3 ML INH ×3 (10:32→19:13)
--- NOTE | 2024-01-24 11:09 | PTOTSP ---
Dysphagia Evaluation
Patient presents with signs concerning for mild oral dysphagia and reported signs concerning for pharyngoesophageal dysphagia (i.e., sensation of stasis with solids when eating 'quickly', occasional coughing with PO intake, reflux symptoms).
Patient currently admitted with concern for LLL PNA and with history of repeated PNAs.
Recommend:
1. IDDSI Level 6 Soft/Bite Sized, Thin liquids
2. Medications: as best tolerated
3. Strategies: upright to 90 degrees, small single sips/bites, slow rate, remain upright for 30 minutes after PO intake as a reflux precaution
4. Oral care 3x daily
5. Consider video swallow study to rule out aspiration given repeated pneumonias
[2024-01-24] MEDS: DUONEB INH (11:17)
--- NOTE | 2024-01-24 11:48 | PTCARENOTE ---
patient ordered and ate entire tray. did not notify nurse to check blood sugar prior to eating.
--- NOTE | 2024-01-24 11:56 | CM ---
IA completed.
Patient admitted with shortness or breath and cough.
Patient lives at [facility].
Spoke with Vanda Banks RN [phone] from [facility]
Patient independent with adls prior to admission.
Patient feeds herself prior to admission.
Patient on chronic oxygen 2 liters thru [employer].
Patient able to answer questions.
Per Kat prior to return they will need to review clinicals and medications.
Please call [phone] for Nurse on duty.
[facility] cannot take weekend discharges.
Patient will need to be transported via ambulance transport.
PCP: Dr Cleary- updated in [facility]
Pharmacy: [facility] in [place] (verified with Kat) updated in [facility]
Plan: return to [facility] once medically stable via ambulance transport.
[2024-01-24] MEDS: STERILE WATER FOR INJECTION 10 ML IV (13:00)
[2024-01-24] MEDS: ROCEPHIN 1000 MG IV (13:00)
[2024-01-24] MEDS: DEPAKENE 500 MG PO (13:17)
[2024-01-24] MEDS: DEPAKENE PO (13:17)
[2024-01-24] MEDS: TESSALON PERLES 100 MG PO (13:18)
[2024-01-24] MEDS: ZYLOPRIM 300 MG PO (13:18)
[2024-01-24] MEDS: ZETIA 10 MG PO (13:18)
[2024-01-24] MEDS: PROZAC 20 MG PO (13:18)
[2024-01-24] MEDS: MUCINEX 600 MG PO ×2 (13:19→21:03)
[2024-01-24] MEDS: FARXIGA 10 MG PO (13:19)
[2024-01-24] MEDS: VIBRAMYCIN 100 MG PO ×2 (13:19→21:04)
[2024-01-24] MEDS: VALTREX 500 MG PO (13:19)
[2024-01-24] MEDS: PROTONIX 40 MG PO (13:19)
[2024-01-24 13:20] LABS: Glucose - Point of Care 205 mg/dl (70-99)
[2024-01-24] MEDS: NOVOLOG FLEXPEN-LOW RESISTANCE 2 UNITS SC ×2 (13:21→16:42)
[2024-01-24] MEDS: NOVOLOG FLEXPEN-LOW RESISTANCE SC (13:21)
[2024-01-24] MEDS: NOVOLOG FLEXPEN SC (13:24)
[2024-01-24] MEDS: NOVOLOG FLEXPEN 8 UNITS SC ×2 (13:24→16:42)
[2024-01-24] MEDS: COLACE PO (13:24)
[2024-01-24] MEDS: SYNTHROID 75 MCG PO (13:25)
--- NOTE | 2024-01-24 14:47 | CON.CAR ---
Addendum entered and electronically signed by Sarthak Ocoha MD 01/24/24 16:23:
I saw and examined the patient.
The CAFETERIA COOK's note was reviewed and I agree with the note.
Comment: 63 yo female with COPD 2L NC oxygen dependent, schizophrenia, HTN, obesity and IDDM, who presents to the ER from home ([facility], [facility]), c/o worsening SOB, cough with increased oxygen to 4L NC w/o improvement. She was
hypoxemic with sats 81% on 4L NC and was brought into the ER. She is admitted to the hospitalist service for LLL PNA and we are consulted for SOB/HFpEF. CXR shows large dense LLL and lingular airspace consolidation, increased since 01/21/24, DDx
are severe left lower lobe pneumonia, severe atelectasis in the left lower lobe and lingula secondary to endobronchial mucous plugging, and new mild right to left mediastinal shift consistent with volume loss in the left lung. She is requiring a
significant amount of oxygen and she is febrile. This appear more consistent with severe PNA rather than HF.
- Hold off on further diuresis
- IV abx
Original Note:
Consultation
Consultation Request
Date/Time Consultation Requested: 01/24/24 2p
Date/Time Consultation Performed: 01/24/24 2:30p
Requesting Provider: Dr. Cuenca
Performing Provider: SIA Pittman for Dr. Ochoa
Reason for Consultation: sob
Medical History
-
Chief Complaint: sob
History of Present Illness:
Ms. Cartwright is a 63 yo female with COPD 2L NC oxygen dependent, schizophrenia, HTN, obesity and IDDM, who presents to the ER from home ([facility], [facility]), c/o worsening SOB, cough with increased oxygen to 4L NC w/o
improvement. She was hypoxemic with sats 81% on 4L NC and was brought into the ER. She is admitted to the hospitalist service for LLL PNA and we are consulted for SOB/HFpEF. CXR shows large dense LLL and lingular airspace consolidation, increased
since 01/21/24, DDx are severe left lower lobe pneumonia, severe atelectasis in the left lower lobe and lingula secondary to endobronchial mucous plugging, and new mild right to left mediastinal shift consistent with volume loss in the left lung.
She is currently on 50L oxygen at 60% non-rebreather mask, saturation 93%, c/o cough, fever, back pain and SOB. ProBNP is 1300. She takes Lasix 40mg daily and extra 20mg for LE edema, but has not taken any extra Lasix at home.
Past Medical History
Past Medical History: Other (as above)
Past Surgical History: Appendectomy and Cholecystectomy
Social History
Tobacco: Non-Smoker
Alcohol: None
Personal: Single
Living: Other ([facility])
Family History
Family History: Reviewed & Not Pertinent
Allergies / Home Medications
Allergy/AdvReac Type Severity Reaction Status Date / Time
bee venom protein (honey bee) Allergy Unknown Verified 01/24/24 04:38
benzonatate Allergy Rash Verified 01/24/24 04:38
[From Tessalon Perles]
codeine Allergy Unknown Verified 01/24/24 04:38
egg Allergy Unknown Verified 01/24/24 04:38
fluphenazine [From Prolixin] Allergy Unknown Verified 01/24/24 04:38
haloperidol [From Haldol] Allergy Unknown Verified 01/24/24 04:38
hydroxychloroquine Allergy Unknown Verified 01/24/24 04:38
[From Plaquenil]
Influenza Virus Vaccines Allergy Unknown Verified 01/24/24 04:38
iodine Allergy Unknown Verified 01/24/24 04:38
Penicillins Allergy unknown; Verified 01/24/24 04:38
tolerated
cephalexin
June 2020
shellfish derived Allergy Unknown Verified 01/24/24 04:38
Sulfa (Sulfonamide Allergy Unknown Verified 01/24/24 04:38
Antibiotics)
tomato Allergy Unknown Verified 01/24/24 04:38
�Medication �Instructions �Recorded �Confirmed �Type
allopurinol 300 mg tablet 300 mg PO DAILY Gout 06/08/20 01/24/24 History
cholecalciferol (vitamin D3) 25 1,000 units PO DAILY Supplement 06/08/20 01/24/24 History
mcg (1,000 unit) tablet
levothyroxine 75 mcg tablet 75 mcg PO DAILY Thyroid 06/08/20 01/24/24 History
metformin 1,000 mg tablet 1,000 mg PO BID Diabetes 06/08/20 01/24/24 History
ondansetron HCl 4 mg tablet 4 mg PO Q8HPRN PRN nausea 05/04/21 01/24/24 History
acetaminophen 325 mg tablet 650 mg PO Q6HPRN PRN back pain 05/28/21 01/24/24 History
dapagliflozin propanediol 10 mg 10 mg PO DAILY Diabetes 09/13/21 01/24/24 History
tablet (Farxiga)
fluticasone 100 mcg-salmeterol 50 1 inh inhalation R BID 09/13/21 01/24/24 History
mcg/dose blistr powdr for Lung/breathing issues
inhalation (Advair Diskus)
insulin glulisine U-100 100 12 unit SC AC Diabetes 09/13/21 01/24/24 History
unit/mL subcutaneous pen (Apidra
SoloStar U-100 Insulin)
melatonin 3 mg tablet 5 mg PO HS Sleep 09/13/21 01/24/24 History
olanzapine 10 mg tablet (Zyprexa) 10 mg PO HS mental health 09/13/21 01/24/24 History
pravastatin 80 mg tablet 80 mg PO DAILY High cholesterol 09/13/21 01/24/24 History
fluoxetine 10 mg capsule (Prozac) 20 mg PO DAILY Depression 02/07/22 01/24/24 History
furosemide 40 mg tablet 40 mg PO DAILY Fluid 02/08/22 01/24/24 History
retention/Swelling
multivitamin with iron 1 tab PO DAILY Supplement 07/08/22 01/24/24 History
benzonatate 100 mg capsule 100 mg PO TIDPRN PRN COUGH 04/12/23 01/24/24 History
ezetimibe 10 mg tablet (Zetia) 10 mg PO DAILY High Cholesterol 04/12/23 01/24/24 History
glucagon 3 mg/actuation nasal 3 mg intranasal DAILYPRN PRN 04/12/23 01/24/24 History
spray (Baqsimi) severe hypoglycemia
insulin glargine 100 unit/mL (3 15 unit SC HS Diabetes 04/12/23 01/24/24 History
mL) subcutaneous pen (Lantus
Solostar U-100 Insulin)
loperamide 2 mg tablet 2 mg PO Q6HPRN PRN diarrhea 04/12/23 01/24/24 History
polyethylene glycol 3350 17 gram 17 g PO BIDPRN PRN constipation 04/12/23 01/24/24 History
oral powder packet (Miralax)
valacyclovir 500 mg tablet 500 mg PO DAILY viral infection 04/12/23 01/24/24 History
docusate sodium 100 mg capsule 100 mg PO BID Constipation 07/26/23 01/24/24 History
guaifenesin 600 mg tablet, 600 mg PO BID 07/26/23 01/24/24 History
extended release 12 hr (Mucinex)
magnesium hydroxide 400 mg/5 mL 2,400 mg PO BIDPRN PRN constipation 07/26/23 01/24/24 History
oral suspension (Milk of Magnesia)
furosemide 20 mg tablet (Lasix) 40 mg (2 x 20 mg) PO DAILYPRN PRN 07/30/23 01/24/24 Rx
fluid #0 tabs
albuterol sulfate 2.5 mg/3 mL 2.5 mg inhalation R Q6HPRN PRN sob 10/31/23 01/24/24 History
(0.083 %) solution for nebulization
aluminum-mag hydroxide-simethicone 15 ml PO BIDPRN PRN indigestion 10/31/23 01/24/24 History
200 mg-200 mg-20 mg/5 mL oral susp
(Iris-Lanta)
benzoyl peroxide 5 % topical 1 applic topical DAILY boil-prone 10/31/23 01/24/24 History
cleanser areas
clonazepam 1 mg tablet 1.5 mg PO HS Mental Health/Anxiety 10/31/23 01/24/24 History
lorazepam 2 mg tablet 2 mg PO Q8HPRN PRN anxeity 10/31/23 01/24/24 History
valproic acid 250 mg capsule 500 mg PO Q8H mental health 10/31/23 01/24/24 History
amlodipine 5 mg tablet 5 mg PO DAILY 01/24/24 01/24/24 History
azithromycin 250 mg tablet 0 mg PO .COMPLEX 01/24/24 01/24/24 History
dextromethorphan-guaifenesin 10 10 ml PO Q6HPRN PRN cough 01/24/24 01/24/24 History
mg-100 mg/5 mL oral syrup
ibuprofen 200 mg tablet (Advil) 600 mg PO Q6HPRN PRN severe pain 01/24/24 01/24/24 History
olanzapine 5 mg tablet 5 mg PO [id number] PRN Agitation 01/24/24 01/24/24 History
pantoprazole 40 mg tablet,delayed 40 mg PO DAILY 01/24/24 01/24/24 History
release
theophylline 300 mg 300 mg PO DAILY 01/24/24 01/24/24 History
capsule,extended release 24 hr
Review of Systems
-
History Source: Patient
All other systems: Negative unless noted
Physical Exam
Vital Signs
Temp Pulse Resp BP Pulse Ox
99.1 F 100 24 126/56 93
01/24/24 11:35 01/24/24 10:35 01/24/24 10:35 01/24/24 07:46 01/24/24 10:35
Lab Results
01/24/24 04:57
01/24/24 04:57
Troponin I Cancelled 01/24/24 21:32
Hpf-Y-Olhkoqirrtw Pept 1360 pg/ml 01/24/24 04:57
Physical Exam
General: Well Developed and Respiratory Distress (mild, on non-rebreather mask 50L at 60% oxygen)
HEENT: Normocephalic and Anicteric
Respiratory: Rhonchi (diffuse b/l)
Cardiac: S1/S2 and Regular Rhythm (tachycardia)
Breast: Deferred by me
GI: Soft, Non Tender and Normal Bowel Sounds
Rectal: Deferred by Provider
Genito-urinary: No Costovertebral Tender
Musculoskeletal: No Clubbing
Skin: Warm and Dry
Hematologic/Lymphatic: No Lymphadenopathy
Psych: Calm
Impression / Plan
-
SOB - severe LLL PNA on cxr.
- management per hospitalist, IV ABX.
- requiring 50L at 60% oxygen via non-rebreather mask with sats 93%.
- multifactorial with PNA, COPD, HFpEF, bronchitis. continue supportive treatments.
HFpEF - acute on chronic.
- agree with IV Lasix, monitor daily weights.
- continue Farxiga.
- check echo.
HTN - stable on medical therapy, monitor.
IDDM - insulin, per hospitalist.
Schizophrenia - chronic, stable.
- continue meds.
- lives in a [facility].
Data Reviewed
-
EKG: Tracing Personally Visualized and interpreted (ST 109 bpm)
Radiology: Report Reviewed by me (CXR shows large dense LLL and lingular airspace consolidation, DDx are severe left lower lobe pneumonia, severe atelectasis in the left lower lobe and lingula secondary to endobronchial mucous plugging, and new mild
right to left mediastinal shift consistent with volume loss in left lung)
Medical Tests (Nuc Med, Echo etc): Report Reviewed by me (echo 02/2022: normal biventricular size/function, EF 60-65%, no RWMA, mild MR, mild/mod TR, PASP 53 mmHg)
Labs: Labs Reviewed by me
Old Records: Reviewed
--- NOTE | 2024-01-24 15:26 | CON.PUL ---
Consultation
Consultation Request
Date/Time Consultation Requested: 01/24/24-3:30 PM
Date/Time Consultation Performed: 01/24/24-4 PM
Requesting Provider: hospitalist
Performing Provider: , Dr. Davis
Reason for Consultation: pneumonia and COPD
Medical History
-
Chief Complaint: , shortness of breath
History of Present Illness:
62-year-old female with a history of underlying schizophrenia, diabetes, COPD, presented with cough and shortness of breath noted mucous plugs and pneumonia-pulmonary consulted for pneumonia/COPD/mucous plugs 01/24/24. The patient has some
shortness of breath, chest congestion, productive cough, offers no complaints, just become chest tightness, productive cough, abdominal pain, nausea, or increased lower extremity edema. Patient is somewhat of a poor historian.
Past Medical History
Past Medical History: None ( Bipolar. Schizophrenia. Diabetes. Hypertension. Hypothyroid. Obesity. COPD/asthma overlap. Anemia. GERD. Chronic heart failure, preserved EF. Appendectomy. Cholecystectomy.)
Social History
Tobacco: Non-smoker
Alcohol: None
Drug: None
Personal: Single
Living: Assisted Living and Other
Occupational Exposures: no known asbestos exposure
Environmental Exposures: . No known tuberculosis exposure
Family History
Family History: Reviewed & Not Pertinent
Allergies / Home Medications
Allergies
Allergy/AdvReac Type Severity Reaction Status Date / Time
bee venom protein (honey bee) Allergy Unknown Verified 01/24/24 04:38
benzonatate Allergy Rash Verified 01/24/24 04:38
[From Tessalon Perles]
codeine Allergy Unknown Verified 01/24/24 04:38
egg Allergy Unknown Verified 01/24/24 04:38
fluphenazine [From Prolixin] Allergy Unknown Verified 01/24/24 04:38
haloperidol [From Haldol] Allergy Unknown Verified 01/24/24 04:38
hydroxychloroquine Allergy Unknown Verified 01/24/24 04:38
[From Plaquenil]
Influenza Virus Vaccines Allergy Unknown Verified 01/24/24 04:38
iodine Allergy Unknown Verified 01/24/24 04:38
Penicillins Allergy unknown; Verified 01/24/24 04:38
tolerated
cephalexin
June 2020
shellfish derived Allergy Unknown Verified 01/24/24 04:38
Sulfa (Sulfonamide Allergy Unknown Verified 01/24/24 04:38
Antibiotics)
tomato Allergy Unknown Verified 01/24/24 04:38
Home Medications
�Medication �Instructions �Recorded �Confirmed �Last Taken �Type
allopurinol 300 mg tablet 300 mg PO DAILY Gout 06/08/20 01/24/24 01/23/24 History
cholecalciferol (vitamin D3) 25 1,000 units PO DAILY Supplement 06/08/20 01/24/24 01/23/24 History
mcg (1,000 unit) tablet
levothyroxine 75 mcg tablet 75 mcg PO DAILY Thyroid 06/08/20 01/24/24 01/23/24 History
metformin 1,000 mg tablet 1,000 mg PO BID Diabetes 06/08/20 01/24/24 01/23/24 History
ondansetron HCl 4 mg tablet 4 mg PO Q8HPRN PRN nausea 05/04/21 01/24/24 Unknown History
acetaminophen 325 mg tablet 650 mg PO Q6HPRN PRN back pain 05/28/21 01/24/24 07/25/23 History
dapagliflozin propanediol 10 mg 10 mg PO DAILY Diabetes 09/13/21 01/24/24 01/23/24 History
tablet (Farxiga)
fluticasone 100 mcg-salmeterol 50 1 inh inhalation R BID 09/13/21 01/24/24 01/23/24 History
mcg/dose blistr powdr for Lung/breathing issues
inhalation (Advair Diskus)
insulin glulisine U-100 100 12 unit SC AC Diabetes 09/13/21 01/24/24 01/23/24 History
unit/mL subcutaneous pen (Apidra
SoloStar U-100 Insulin)
melatonin 3 mg tablet 5 mg PO HS Sleep 09/13/21 01/24/24 01/23/24 History
olanzapine 10 mg tablet (Zyprexa) 10 mg PO HS mental health 09/13/21 01/24/24 01/23/24 History
pravastatin 80 mg tablet 80 mg PO DAILY High cholesterol 09/13/21 01/24/24 01/23/24 History
fluoxetine 10 mg capsule (Prozac) 20 mg PO DAILY Depression 02/07/22 01/24/24 01/23/24 History
furosemide 40 mg tablet 40 mg PO DAILY Fluid 02/08/22 01/24/24 01/23/24 History
retention/Swelling
multivitamin with iron 1 tab PO DAILY Supplement 07/08/22 01/24/24 01/23/24 History
benzonatate 100 mg capsule 100 mg PO TIDPRN PRN COUGH 04/12/23 01/24/24 01/23/24 History
ezetimibe 10 mg tablet (Zetia) 10 mg PO DAILY High Cholesterol 04/12/23 01/24/24 01/23/24 History
glucagon 3 mg/actuation nasal 3 mg intranasal DAILYPRN PRN 04/12/23 01/24/24 Unknown History
spray (Baqsimi) severe hypoglycemia
insulin glargine 100 unit/mL (3 15 unit SC HS Diabetes 04/12/23 01/24/24 01/23/24 History
mL) subcutaneous pen (Lantus
Solostar U-100 Insulin)
loperamide 2 mg tablet 2 mg PO Q6HPRN PRN diarrhea 04/12/23 01/24/24 Unknown History
polyethylene glycol 3350 17 gram 17 g PO BIDPRN PRN constipation 04/12/23 01/24/24 01/17/24 History
oral powder packet (Miralax)
valacyclovir 500 mg tablet 500 mg PO DAILY viral infection 04/12/23 01/24/24 01/23/24 History
docusate sodium 100 mg capsule 100 mg PO BID Constipation 07/26/23 01/24/24 01/23/24 History
guaifenesin 600 mg tablet, 600 mg PO BID 07/26/23 01/24/24 01/23/24 History
extended release 12 hr (Mucinex)
magnesium hydroxide 400 mg/5 mL 2,400 mg PO BIDPRN PRN constipation 07/26/23 01/24/24 Unknown History
oral suspension (Milk of Magnesia)
furosemide 20 mg tablet (Lasix) 40 mg (2 x 20 mg) PO DAILYPRN PRN 07/30/23 01/24/24 Unknown Rx
fluid #0 tabs
albuterol sulfate 2.5 mg/3 mL 2.5 mg inhalation R Q6HPRN PRN sob 10/31/23 01/24/24 01/24/24 History
(0.083 %) solution for nebulization
aluminum-mag hydroxide-simethicone 15 ml PO BIDPRN PRN indigestion 10/31/23 01/24/24 Unknown History
200 mg-200 mg-20 mg/5 mL oral susp
(Iris-Lanta)
benzoyl peroxide 5 % topical 1 applic topical DAILY boil-prone 10/31/23 01/24/24 01/23/24 History
cleanser areas
clonazepam 1 mg tablet 1.5 mg PO HS Mental Health/Anxiety 10/31/23 01/24/24 01/23/24 History
lorazepam 2 mg tablet 2 mg PO Q8HPRN PRN anxeity 10/31/23 01/24/24 01/12/24 History
valproic acid 250 mg capsule 500 mg PO Q8H mental health 10/31/23 01/24/24 01/23/24 History
amlodipine 5 mg tablet 5 mg PO DAILY 01/24/24 01/24/24 01/23/24 History
azithromycin 250 mg tablet 0 mg PO .COMPLEX 01/24/24 01/24/24 01/23/24 History
dextromethorphan-guaifenesin 10 10 ml PO Q6HPRN PRN cough 01/24/24 01/24/24 01/23/24 History
mg-100 mg/5 mL oral syrup
ibuprofen 200 mg tablet (Advil) 600 mg PO Q6HPRN PRN severe pain 01/24/24 01/24/24 01/23/24 History
olanzapine 5 mg tablet 5 mg PO [id number] PRN Agitation 01/24/24 01/24/24 Unknown History
pantoprazole 40 mg tablet,delayed 40 mg PO DAILY 01/24/24 01/24/24 01/23/24 History
release
theophylline 300 mg 300 mg PO DAILY 01/24/24 01/24/24 01/23/24 History
capsule,extended release 24 hr
Review of Systems
-
Unable to Obtain full review of systems at this time due to: Other (per HPI)
Vitals / Labs / Diagnostic Testing
Vital Signs
Temp Pulse Resp BP Pulse Ox
99.1 F 100 24 126/56 93
01/24/24 11:35 01/24/24 10:35 01/24/24 10:35 01/24/24 07:46 01/24/24 10:35
Lab Data
01/24/24 04:57
01/24/24 04:57
Laboratory Results
01/24/24
04:57
PT 14.8 H
INR 1.11
APTT 30.8
Microbiology
01/24/24 06:29 Nasal Swab Influenza Types A & B (SUSHANT) - Final
Negative for Influenza A & B, NAAT
Negative results must be combined with clinical observations
and patient history.
Nucleic Acid Amplification test (NAAT)performed on the
[employer] platform.
Diagnostic Testing:
Physical Exam
-
Exam:
HEENT atraumatic normocephalic and anicteric. Heart was regular without murmur. Chest was clear without wheezes or crackles. Integument without rashes or icterus. Neurologic exam without weakness or numbness. Abdomen soft and nondistended.
The patient had no JVD, cyanosis, clubbing or edema.
Assessment
-
62-year-old female with a history of underlying schizophrenia, diabetes, COPD, presented with cough and shortness of breath noted mucous plugs and pneumonia-pulmonary consulted for pneumonia/COPD/mucous plugs 01/24/24.
Left lower lobe pneumonia-nosocomial.
Aspiration risk.
CHF-preserved EF.
COPD without acute exacerbation.
Leukocytosis.
Rgdugc-fchpiiasuq-wdkoupjwlk 11.4, MCV 107.
Hyperglycemia
Conditions present prior to admission:
Bipolar.
Schizophrenia.
Diabetes.
Hypertension.
Hypothyroid.
Obesity.
COPD/asthma overlap.
Anemia.
GERD.
Chronic heart failure, preserved EF.
Appendectomy. Cholecystectomy
Plan
Decompensation related to probable underlying pneumonia and underlying COPD
Supplemental oxygen as needed-reviewed with [employer]-high flow if needed-currently fullface mask working best that she is a mouth breather
Aspiration precautions.
Speech therapy evaluation.
Nebulizers.
Empiric antibiotics.
Mucolytic's
Mucus clearing devices.
Check cultures.
Check sputum culture.
Urine Legionella.
Empiric antibiotics-currently on ceftriaxone-May need to add antipseudomonal coverage with history of hospitalizations and current living conditions
Monitor leukocytosis and temperature curve-currently spiking a temp
Follow radiographically.
Consider infectious disease consultation if does not improve
Diuresis as tolerated.
Monitor intake, output, weight, lower extremity edema.
Replace electrolytes as needed.
Cardiology evaluation-reviewed briefly with Dr. Ochoa
Monitor hemoglobin.
Consider B12 and folate levels with macrocytosis.
Monitor blood sugar.
Insulin supplementation as needed.
DVT prophylaxis-on Lovenox.
GI prophylaxis-on pantoprazole.
Nutrition
Early mobilization/physical therapy
Studies:
CT chest 01/21/24-multiple pulmonary nodules stable dating back to 02/06/23-over 10 nodules, less than 2 mm
Chest x-ray 01/24/24-large dense lower lobe and lingular airspace disease consistent with pneumonia
Data Reviewed
-
EKG: Report reviewed by me
Radiology: Report reviewed by me
CT Scan: Report reviewed by me
Labs: Labs reviewed by me
Old Records: Reviewed
Total Time Spent with Patient (in minutes): 55
--- NOTE | 2024-01-24 15:32 | CON.ID ---
Consultation
-
Date/Time Consultation Requested: January 24, 2024 1419
Date/Time Consultation Performed: January 24, 2024 1535
Requesting Provider: Dr. Guera Cuenca
Performing Provider: Dr. Georgia Frey
Reason for Consultation: Sepsis and pneumonia
Chief Complaint / Past History
Chief Complaint
Cough and shortness of breath
History of Present Illness
63-year-old female with diabetes mellitus, COPD on chronic 2 L of oxygen, heart failure with preserved EF, schizophrenia who [facility] from [facility] with worsening cough and hypoxia. Patient states that she has been having cough for about 3
to 4 weeks. Cough sometimes productive of white phlegm. Has subjective fever and chills. No sinus congestion or sore throat. Appetite is poor. No history of dysphagia. She had outpatient chest CT done on January 21, 2024 to follow pulmonary
nodules which showed stable nodules without airspace opacity. She was noted to be hypoxic at the [facility]. Her oxygen dropped to 81% on 4 L of oxygen, she was therefore sent to the ER today. Chest x-ray today shows dense left lower lobe
consolidation. White count of 17. Procalcitonin 0.66. She is started on ceftriaxone and doxycycline. Patient is currently on a nonrebreather. She reports residents at the [facility] are coughing. No recent travel history.
Past History
Additional Past Medical History:
Schizophrenia
Diabetes mellitus
COPD on 2L02
Pulmonary nodules
Hypertension
Hypothyroidism
Heart failure with preserved EF
BMI 36
Appendectomy
Cholecystectomy
Allergy History:
bee venom protein (honey bee) Allergy (Verified 01/24/24 04:38)
Unknown
benzonatate [From Tessalon Perles] Allergy (Verified 01/24/24 04:38)
Rash
codeine Allergy (Verified 01/24/24 04:38)
Unknown
egg Allergy (Verified 01/24/24 04:38)
Unknown
fluphenazine [From Prolixin] Allergy (Verified 01/24/24 04:38)
Unknown
haloperidol [From Haldol] Allergy (Verified 01/24/24 04:38)
Unknown
hydroxychloroquine [From Plaquenil] Allergy (Verified 01/24/24 04:38)
Unknown
Influenza Virus Vaccines Allergy (Verified 01/24/24 04:38)
Unknown
iodine Allergy (Verified 01/24/24 04:38)
Unknown
Penicillins Allergy (Verified 01/24/24 04:38)
unknown; tolerated cephalexin June 2020
shellfish derived Allergy (Verified 01/24/24 04:38)
Unknown
Sulfa (Sulfonamide Antibiotics) Allergy (Verified 01/24/24 04:38)
Unknown
tomato Allergy (Verified 01/24/24 04:38)
Unknown
Medications Reviewed: Yes
Current Antibiotics:
Ceftriaxone
Doxycycline
Social History
Tobacco: Non-Smoker
Alcohol: None
Drug: None
Personal: Single
Living: Other (Halfway)
Family History
Family History: Not Pertinent
Review of Systems
Review of Systems
General: Fever, Chills and Change in Appetite
HEENT: Negative Sinus Problems, Headache or Pharyngitis
Cardiovascular: Negative Chest Pain
Respiratory: Dyspnea, Cough and Sputum Production (phlegm)
Gasteroenterology: Negative Nausea, Vomiting or Diarrhea
Genital / Urological: Negative Dysuria or Flank Pain
Endocrine: Weakness
Skin / Hair / Nails: Negative Rash
Neurological: Negative Dizziness
All systems: All other systems were reviewed and were negative
Vital Signs
Temp Pulse Resp BP Pulse Ox
99.1 F 100 24 126/56 93
01/24/24 11:35 01/24/24 10:35 01/24/24 10:35 01/24/24 07:46 01/24/24 10:35
Selected Entries
01/24/24
07:46
Temp 101.5 F H
Physical Exam
Physical Exam
Constitutional: Acutely Ill
Eyes: No Conjunctival Hemorrhage and Sclera Anicteric
Cardiovascular: S1/S2 and Other (Tachycardic)
Pulmonary: Other (left base decreased BS)
Gastrointestinal: Soft, Non Tender, Non Distended and Normal Bowel Sounds
Genito-Urinary: Negative CVA Tenderness
Extremities: Negative Edema
Neurological: AO x 3
Lab / Diagnostic Study Results
01/24/24 04:57
01/24/24 04:57
Abs Immat Gran (auto) 0.2 10^3/uL (0-0.05) H 01/24/24 04:57
Absolute Neuts (auto) 14.2 10^3/uL (1.4-6.5) H 01/24/24 04:57
Absolute Lymphs (auto) 0.9 10^3/uL (1.2-3.4) L 01/24/24 04:57
Absolute Monos (auto) 1.5 10^3/uL (0.1-0.6) H 01/24/24 04:57
Absolute Basos (auto) 0.1 10^3/uL (0-0.2) 01/24/24 04:57
Immature Gran % 1.2 % (0-0.5) H 01/24/24 04:57
Neutrophils % 79.7 % (42.2-75.2) H 01/24/24 04:57
Lymphocytes % 5.3 % (20.5-51.1) L 01/24/24 04:57
Monocytes % 8.6 % (1.7-9.3) 01/24/24 04:57
Eosinophils % 4.6 % (0-6) 01/24/24 04:57
Basophils % 0.6 % (0-2) 01/24/24 04:57
PT 14.8 Sec (11.4-14.6) H 01/24/24 04:57
INR 1.11 01/24/24 04:57
Lactic Acid Cancelled 01/24/24 09:15
Procalcitonin 0.66 ng/ml (0.0-0.25) H 01/24/24 05:30
Microbiology Results
Micro:
01/24/24 05:30 Blood Culture - Pending
Blood/Venous
01/24/24 06:29 Influenza Types A & B (SUSHANT) - Final
Nasal Swab Negative for Influenza A & B, NAAT
Negative results must be combined with clinical observations
and patient history.
Nucleic Acid Amplification test (NAAT)performed on the
[employer] platform.
01/24/24 CXR: LARGE DENSE LEFT LOWER LOBE and LINGULAR AIRSPACE CONSOLIDATION which has markedly increased since 01/21/2024. Diagnostic possibilities are (1) severe left lower lobe pneumonia or (2) severe atelectasis in the left lower lobe and
lingula secondary to endobronchial mucous plugging. New mild right to left mediastinal shift consistent with volume loss in the left lung. Mild cardiomegaly.
01/21/24 CT chest: The appearance, stability and multiplicity of the multiple tiny bilateral pulmonary nodules dating back to 02/06/2023 indicate that they are benign
Assessment / Plan
# LLL CAP
# Acute on chronic hypoxemic respiratory failure
# Leukocytosis
# COPD on home 2LO2 (never smoked)
- Of note, CT chest neg PNA 3 days prior to admission
- Check urine legionella and pneumococcal antigen
- Agree with Ceftriaxone and doxycycline.
- Trend wbc and oxygen status
# Conditions THREAD MARKER
Schizophrenia
Diabetes mellitus
COPD on 2L02
Pulmonary nodules
Hypertension
Hypothyroidism
Heart failure with preserved EF
BMI 36
Appendectomy
Cholecystectomy
[2024-01-24] MEDS: PRAVACHOL 80 MG PO (16:15)
[2024-01-24 16:41] LABS: Glucose - Point of Care 230 mg/dl (70-99)
[2024-01-24] MEDS: LOVENOX 40 MG SC (16:48)
--- NOTE | 2024-01-24 18:36 | PTCARENOTE ---
pt arrived from ED this am. pt in sunus rythym, sinus tachy. tmax 102.9 this afternoon, pt had already had tylenol prior to temp. pt temp rechecked and down to 100.9. sats occasionally dropping on 13 liters midflow so patient increased to 15 liters
midflow. sat currently 95%. high flow bought to room by rT but has not been needed to maintain sat of 92 at this time. pt has occasional moist cough, pt threw empty meal tray on floor this am bc she was upset that she thought kitchen forgot to bring
her lunch tray. explained to pt that she needs to call nurse to help her resolve issues.
[2024-01-24] MEDS: COLACE 100 MG PO (21:03)
[2024-01-24] MEDS: ZYPREXA 10 MG PO (21:04)
[2024-01-24] MEDS: KLONOPIN 1.5 MG PO (21:04)
[2024-01-24] MEDS: LANTUS 0.15 UNITS SC (21:07)
[2024-01-24 21:18] LABS: Glucose - Point of Care 185 mg/dl (70-99)
[2024-01-24] MEDS: ZOFRAN 4 MG IV (21:56)
[2024-01-24 22:44] LABS: Hematocrit 38.5 % (37.0-47.0); Hemoglobin 12.3 g/dL (12.0-16.0); Mean Corp Hgb Conc. 31.9 g/dL (33.0-37.0); Mean Corpuscular Hgb 34.9 pg (27.0-31.0); Mean Corpuscular Volume 109.4 fL (81.0-99.0); Mean Platelet Volume 9.6 fL (7.4-10.4); Platelet Count 182 10^3/uL (130-400); Red Blood Cell Count 3.52 10^6/uL (4.20-5.40); White Blood Cell Count 19.5 10^3/uL (4.8-10.8)
[2024-01-24] MEDS: LASIX 20 MG IV (22:45)
[2024-01-24 22:59] LABS: B.E. 11.3 mmol/L; O2 Saturation % 90.6 % (94-98); PCO2 60 mmHg (32-35); pH 7.41 (7.35-7.45)
[2024-01-24 23:00] LABS: PO2 56 mmHg (83-108)
[2024-01-24] MEDS: OFIRMEV 100 IV (23:11)
--- NOTE | 2024-01-24 23:27 | W.PN.UPDATE ---
Update Note
Progress Note Update
RN notified TIN CAN FEEDER, Patient in acute respiratory distress. Patient seen and evaluated. 86% HFNC, RR 40's, BP 180's/76 HR 100-120, Lungs wheezes and rales R>L, will order ABG, chest Xray, labs.
IV lasix 20mg ordered
ABG results noted, chest Xray results noted, Discussed case with Dr. Phipps and ICU TIN CAN FEEDER Kiah, will transfer patient to ICU
unable to reach the person in contact list. will try again in AM.
--- NOTE | 2024-01-24 23:30 | PTCARENOTE ---
resumed care of pt on 15L Mid flow NC. Pt tachypneic with RR in the 40's, POX 88-90%. RT notified. Pt placed on Hi Flow NC 60%/40L. Pt remained tachypneic with little improvement in oxygenation. Hi flow increased. Pt then had acute onset nausea
and vomited. Pt coughing after. POX 78% on Hi Flow NC. RT once again at bedside to assist with PT. Breathing treatment administered. POX continues to remain in the 80's. 100% NRB mask applied. HR in the 120's. pt with increased work of breathing
with RR in the 40's-50's. WRAPPER SORTER at bedside to assess pt. orders obtained. Oral temp 103.0, IV Ofirmev administered as ordered. 20mg IV lasix administered as ordered, pure wick in place. MAYRA RN at bedside to place additional IV access. Pt agitated and
annoyed with not be allowed to drink at this time. Pt reports feeling SOB. Emotional support provided. ABG results reviewed, orders obtained to transfer pt to ICU. report given to Merlyn DIAZ to resume care.
[2024-01-25] VITALS (114 sets, daily range): BP systolic 76–207; BP diastolic 43–95; BMI 35.4; BMI 36.4
[2024-01-25] MEDS: SUBLIMAZE 100 MCG IV (00:09)
[2024-01-25] MEDS: DIPRIVAN 100 IV ×4 (00:13→17:55)
[2024-01-25] MEDS: SUBLIMAZE 100 IV ×3 (00:13→19:14)
--- NOTE | 2024-01-25 00:18 | W.PN.ANESINT ---
Anesthesia Intubation Note
- Intubation Note
Intubation Note:
Diagnosis: Hypoxia
Blade: Glidescope MAC 4
Tube Size: 8.0
Depth: 23 cm
Side Taped: Right
Drugs Used: Propofol 150 mg, Rocuronium 50 mg
Grade View: I
EtCO2 Present: Yes
Atraumatic: Yes
Attempts: x 1
Insertion Start and Stop Time: 1202, 1204
SaO2 Pre: 93
SaO2 Post: 96
Glidescope Used: Yes
Other Airway Adjustments: OPA
Pre-Oxygenated: Yes
Portable Chest X-Ray: Pending
RSI: No
Suctioned: No
Bilateral Breath Sounds Confirmed: Yes
Vent Settings:
Settings per ICU_Attending Physician
[2024-01-25] MEDS: SUBLIMAZE 50 MCG IV ×2 (00:34→04:32)
[2024-01-25] MEDS: NOVOLOG FLEXPEN 8 UNITS SC ×4 (01:03→18:10)
[2024-01-25 01:13] LABS: Glucose - Point of Care 227 mg/dl (70-99)
[2024-01-25] MEDS: MAXIPIME 2000 MG IV ×3 (01:17→16:28)
[2024-01-25] MEDS: STERILE WATER FOR INJECTION 10 ML IV ×3 (01:17→16:28)
[2024-01-25] MEDS: DEPAKENE PO (02:19)
--- NOTE | 2024-01-25 02:30 | W.PN.SEPSIS ---
Sepsis
Vital Signs
Temp Pulse Resp BP Pulse Ox
99.9 F 70 14 83/48 100
01/25/24 02:21 01/25/24 02:30 01/25/24 02:30 01/25/24 02:03 01/25/24 02:30
Physical Exam
Physical Exam:
A focused exam was performed after fluid resuscitation.
Capillary Refill
Bilateral Upper Extremity:
José Luis Time: Less than 3 sec
Bilateral Lower Extremity:
José Luis Time: Less than 3 sec
Pulse Evaluation
Bilateral Radial:
Pulse Evaluation: Present
Bilateral Dorsalis Pedis:
Pulse Evaluation: Present
[2024-01-25] MEDS: VANCOCIN 540 MG IV (02:33)
--- NOTE | 2024-01-25 02:34 | VATNOTE ---
Addendum entered by Debra Martino RN 01/25/24 02:34:
PICC order received, patient currently has pending blood cultures and not ordered for any medications that require central access. This VAT RN spoke to primary RN whom wanted more access and agreed that a midline would be sufficient access at this
time. Patient has three peripheral IV's in right arm/ hand. Midline placed in left arm. Will continue to monitor PICC needs.
Original Note:
PICC order recieved, patient currently has pendning blood cuktuyres
[2024-01-25 03:02] LABS: Blood Urea Nitrogen 37 mg/dl (7-17); Calcium 8.8 mg/dl (8.4-10.2); Carbon Dioxide 35 mmol/L (22-30); Chloride 95 mmol/L (98-107); Estimated Creatinine Clearance 47 ml/min; Glucose 214 mg/dl (70-99); Potassium 3.6 mmol/L (3.5-5.1); Sodium 141 mmol/L (135-145); Triglycerides 137 mg/dl (10-149); eGFR 46.21
--- NOTE | 2024-01-25 03:22 | PTCARENOTE ---
Patient came from IMU around 0000 in severe respiratory distress, intubated 0005. On propofol and fentanyl drip per protocol. B/l wrist restraints. Normal sinus, 80s-90s, BP 90s-130s/50s-70s. Normothermic, +1 b/l upper extremity edema, +2 b/l lower
extremity edema. Palpable radial pulses, weak palpable pedal pulses b/l. 8.0 ETT, 23 at the lip, saturating 100%. AC 16/450/10/100%. Lung sounds coarse, scattered rhonchi throughout. Abdomen round, obese, positive bowel sounds. No BM yet this
admission. OG tube inserted at 70 cm to low intermittent suction with Q4 tap water flushes. 16 fr temp sensing odrman inserted putting out clear yellow urine. Bruise on left abdomen. PIVs patent, WNL, midline patent, WNL. Labs sent, CHG bath done,
mouth care done, dorman care done, repositioned. Hourly rounding and patient safety checks ongoing.
[2024-01-25 03:57] LABS: HCO3 38.5 mmol/L (21-28); PCO2 42 mmHg (32-35); PO2 111 mmHg (83-108); pH 7.57 (7.35-7.45)
[2024-01-25 03:59] LABS: O2 Therapy VENT
--- NOTE | 2024-01-25 04:44 | W.PN.UPDATE ---
Update Note
Progress Note Update
01/25/24
0000- Patient maxed on high flow nasal cannula and non rebreather, hypoxic sustained saturation 80s%, ABG O2 56, tachypneic RR 40-50s, using accessory muscles, obtundent but easily arousable with noxious stimuli, overall patient appears very
fatigued, and tachycardic HR 110s. Chest xray reviewed shows progressing left pneumonia. Patient agreed to intubation 'I feel very tired', reviewed risk/benefits of intubation. VEIN PUMPER called for intubation, procedure without event. A-line attempted
without success. Sedation ordered propofol and fentanyl gtts. Called [facility], spoke with nurse line and left update on patient's current condition.
[2024-01-25 05:18] LABS: Glucose - Point of Care 189 mg/dl (70-99)
[2024-01-25] MEDS: SYNTHROID 75 MCG PO (05:52)
[2024-01-25] MEDS: LEVOPHED 250 IV (06:09)
--- NOTE | 2024-01-25 06:28 | PTCARENOTE ---
Started on levo gtt for continuous pressures 70s-80s/40s-50s. Attempted percussion, patient desaturated to 68%. Suctioned endotracheally, no secretions, already on 100% FiO2. Respiratory notified.
[2024-01-25 06:35] LABS: Hematocrit 29.1 % (37.0-47.0); Hemoglobin 9.5 g/dL (12.0-16.0); Mean Corp Hgb Conc. 32.6 g/dL (33.0-37.0); Mean Corpuscular Hgb 34.7 pg (27.0-31.0); Mean Corpuscular Volume 106.2 fL (81.0-99.0); Mean Platelet Volume 9.7 fL (7.4-10.4); Platelet Count 156 10^3/uL (130-400); Red Blood Cell Count 2.74 10^6/uL (4.20-5.40); Red Cell Dist. Width 14.6 % (11.5-14.5); White Blood Cell Count 15.5 10^3/uL (4.8-10.8)
[2024-01-25 07:00] LABS: Blood Urea Nitrogen 40 mg/dl (7-17); Calcium 8.6 mg/dl (8.4-10.2); Carbon Dioxide 34 mmol/L (22-30); Chloride 96 mmol/L (98-107); Estimated Creatinine Clearance 48 ml/min; Glucose 178 mg/dl (70-99); Magnesium 2.1 mg/dl (1.6-2.3); Phosphorus 2.6 mg/dl (2.5-4.5); Potassium 3.7 mmol/L (3.5-5.1); Sodium 141 mmol/L (135-145); eGFR 46.21
--- NOTE | 2024-01-25 07:37 | W.PN.HOSP.TC ---
Today's Communication/Plan
-
pressor support as necessary goal MAP 65
vent sedation as per ICU
cont abx
daily weights I/O
repeat H&H and type and screen Noon
Assessment / Plan
Assessment / Plan
Physical Exam
General: Sedated Obese
HEENT: Moist mucous membranes, Pinpoint pupils b/l
Respiratory: clear to auscultation Intubated
Cardiac: S1/S2 Tachycardia; No Murmur
GI: Soft, some distension noted, decreased bowel sounds
Musculoskeletal: No Clubbing, No Cyanosis and No Edema
Neuro: Sedated
A/P: Patient is a 63y F with PMH significant for schizophrenia, DM-II and COPD who presents to ED complaining of cough and SOB.
Acute on Chronic Hypoxemic Respiratory Insufficiency
Acute Respiratory Failure required intubation overnight 01/23-01/24
- IMU admit transferred to ICU
- Suspect multifactorial with components of LLL pneumonia vs atelectasis vs pulmonary edema
- Baseline chronic O2 supplementation 2L at home
-vent setting sedation as per ICU
LLL Pneumonia vs Atelectasis Mucus plugging
Septic Shock (fever leukocytosis requiring pressor support)
- CXR with dense opacity in the L base concerning for Pneumonia vs Atelectasis mucus plugging
- Pulm eval appreciated
- Cont abx ceftriaxone and doxycycline. ID eval appreciated
- Supportive care including mucolytics, nebs, Chest PT VEST therapy if able or similar therapy as per ICU
-pressor support as necessary goal MAP>=65 currently on Levophed 15 mcg at time of evaluation, vasopressin ordered
Anemia likely Dilutional
-Hgb drop from 12.3 to 9.5
-re-check H&H and Type and Screen Noon
Acute on Chronic HFpEF
- Weight is increased from prior noted baseline per our records.
- BNP significantly elevated from prior as well.
- IV Lasix BID.
- Monitor I/Os, daily weights
- ECHO appreciated EF 60-65% compared with prior ECHO Feb 2022 mild aortic stenosis new finding.
- Cardio Eval appreciated
Mild AMBERLY vs CKD 3
Cr consistently 1.3
cont to monitor on diuresis as above
COPD without Acute Exacerbation
Acute Bronchitis
- No active wheezing appreciated on exam, but cough x 2 weeks and increased dyspnea.
- Continue inhaled corticosteroids, nebs
Aspiration precautions.
Eventual Speech evaluation (if patient amenable)
Schizoaffective Disorder
- Continue current psychotropic med regimen.
Benign Hypertension
�- Stable.� Continue home med regimen.
DM-II
�- Stable.� Continue outpatient Farxiga. Hold metformin acutely.
- Continue basal : bolus insulin regimen.
�- SSI coverage as needed.
- Update A1C.
Hypothyroidism
�- Continue home T4 supplementation.
Obesity due to excess calories and insulin resistance.
�- Affects all aspects of care.
�- Encourage healthy diet and increased activity with goal of weight loss.
DVT Prophylaxis:� Lovenox
Code Status:� Full
Updated Supervising Nurse Sally covering over the weekend at patient's skilled nursing [facility]. Sally will call back with patient's next of Kin/Guardian contact information.
Total Critical Care Time__50___ minutes. I was immediately available to the patient and staff. I personally examined, reviewed labs, diagnostic images/reports, interpretations, treatment plans, discussed patient care with other providers and
family or caregivers (if patient is unable to make decisions), entered orders as appropriate and documented the medical record.
Anticipated Discharge: > 48 hours
Subjective/Interval History
-
Date of Service: January 25, 2024
Events overnight reviewed. Respiratory distress impending respiratory failure required intubation transferred to ICU. Sedated on evaluation
Objective Data
-
Labs:
Laboratory Results
01/24/24 01/24/24 01/24/24
22:34 22:53 23:01
WBC 19.5 H
Hgb 12.3
Hct 38.5
Plt Count 182
HCO3 38.0 H
Sodium Cancelled Cancelled
Potassium Cancelled Cancelled
Chloride Cancelled Cancelled
Carbon Dioxide Cancelled Cancelled
BUN Cancelled Cancelled
Creatinine Cancelled Cancelled
Glucose Cancelled Cancelled
Calcium Cancelled Cancelled
01/25/24 01/25/24 01/25/24
02:32 03:42 05:48
WBC Cancelled
Hgb Cancelled
Hct Cancelled
Plt Count Cancelled
HCO3 38.5 H
Sodium 141 Cancelled
Potassium 3.6 Cancelled
Chloride 95 L Cancelled
Carbon Dioxide 35 H Cancelled
BUN 37 H Cancelled
Creatinine 1.3 H Cancelled
Glucose 214 H Cancelled
Calcium 8.8 Cancelled
01/25/24 01/25/24
06:17 06:25
WBC 15.5 H
Hgb 9.5 L D
Hct 29.1 L
Plt Count 156
HCO3
Sodium 141
Potassium 3.7
Chloride 96 L
Carbon Dioxide 34 H
BUN 40 H
Creatinine 1.3 H
Glucose 178 H
Calcium 8.6
Vital Signs:
Vital Signs
Temp Pulse Resp BP Pulse Ox
98.7 F 69 14 78/46 100
01/25/24 07:00 01/25/24 06:00 01/25/24 06:00 01/25/24 06:00 01/25/24 06:00
I&O
01/24/24 01/25/24 01/26/24
06:59 06:59 06:59
Intake Total 777.4 / 777.4
Output Total 1830 / 1830
Balance -1052.6 / -1052.6
[2024-01-25 07:49] LABS: Glucose - Point of Care 193 mg/dl (70-99)
[2024-01-25] MEDS: DUONEB 3 ML INH ×4 (08:10→20:47)
[2024-01-25] MEDS: NOVOLOG FLEXPEN-LOW RESISTANCE 1 UNITS SC ×3 (08:21→18:10)
[2024-01-25] MEDS: DEPAKOTE SPRINKLE 500 MG TUBE ×2 (08:22→16:28)
[2024-01-25] MEDS: FARXIGA 10 MG TUBE (08:22)
[2024-01-25] MEDS: ZETIA 10 MG TUBE (08:22)
[2024-01-25] MEDS: COLACE LIQUID 100 MG TUBE ×2 (08:22→22:58)
[2024-01-25] MEDS: PROZAC 20 MG TUBE (08:22)
[2024-01-25] MEDS: VALTREX 500 MG TUBE (08:23)
[2024-01-25] MEDS: LASIX 40 MG IV (08:23)
[2024-01-25] MEDS: MIRALAX 17 GRAMS TUBE (08:23)
--- NOTE | 2024-01-25 08:32 | W.PN.INTV ---
Today's Communication / Plan
Recommendations
Continue with mechanical ventilation and wean down PEEP + FiO2 as tolerated
Placed position to right side down given hypoxia with left side down
Suction as needed
Antibiotics
Follow cultures and check urine antigens for Legionella + strep pneumonia
Diamox today
Trend blood gas
Hold off on diuresis given shock state now on vasopressors
Maintain MAP >65
Start tube feeds
Critically ill; continue ICU level of care
Assessment
-
63-year-old female with a history of underlying schizophrenia, diabetes, asthma, presented with cough and shortness of breath noted mucous plugs and pneumonia-pulmonary consulted for pneumonia/COPD/mucous plugs 01/24/24. She had worsening
respiratory distress and was transferred to the ICU on the evening of 01/23 and intubated on 01/25/2024.
Impression:
Acute respiratory failure with hypoxia + hypercapnia now on mechanical ventilation (intubated 01/25/2024)
Metabolic alkalosis due to chronic hypercapnia with CO2 now being acutely blown off s/p intubation
Left lower lobe pneumonia-nosocomial
Shock - due to sedation in setting of sepsis
Aspiration risk.
CHF-preserved EF with normal RV size and function
Mild aortic stenosis
Asthma with acute exacerbation due to pneumonia
Leukocytosis.
Anemia
DM type II c/b hyperglycemia
AMBERLY (baseline Cr 0.8)
History of mild restrictive lung disease (post�bronchodilator FVC: 69% / 2.04 L via spirometry on 12/12/2020)
Conditions present prior to admission:
Bipolar.
Schizophrenia.
Borderline personality disorder
Diabetes.
Hypertension.
Hypothyroid.
Obesity.
COPD/asthma overlap.
CIELO on CPAP
Anemia.
GERD.
Chronic heart failure, preserved EF.
Appendectomy. Cholecystectomy
Plan
Patient deteriorated with worsening work of breathing/respiratory distress on the evening of 01/23 and was intubated shortly after midnight on 01/25/2024
- Continue with mechanical ventilation and wean down PEEP to 8 today; once PEEP is at 5 then would start weaning down FiO2 to goal of 50%
- Once PEEP is 5 and FiO2 50% then would start SAT/SBT if clinically appropriate
- Titrate FiO2 + PEEP to maintain SpO2 >90-94%
- Switch her position to right side down given the degree of atelectasis on her left lung; may need bronchoscopy prior to extubation for pulmonary toilet purposes
- trend blood gas and adjust vent daily as needed
- Given her serum HCO3 is >30 with pH>7.55, will give diamox today and re-check blood gas tomorrow AM
- Maintain plateau pressure <30
- Suction as needed
- DuoNebs QID with prn doses in between
- Since on Advair as an outpatient, start pulmicort while intubated
- Given she has Hx of asthma now on high PEEP and high FiO2, start solumedrol at 40mg IV q12hr and wean as tolerated
- Mucolytics with mucinex
Follow-up blood culture (01/24/2024, and sputum culture (collected today)
- Continue with cefepime/doxycycline and DC ceftriaxone
- ID consulted - recs appreciated
- Monitor leukocytosis and temperature curve
- Follow radiographically
- Trend procal to assure we have source control
Diuresis on hold given that she is now on vasopressors since being intubated - last dose given this AM at 823AM
- Cardiology consulted and recommendations appreciated
- Monitor intake, output, + daily weight
- Replete K>4, Mg>2
Monitor hemoglobin; transfuse if needed to keep Hb>7, plt>20k
- Will check B12 and folate levels due to macrocytosis
Monitor blood sugar with goal BG 140-180
- Given her BG is in 170s, continue aspart 8 units q6hr, and ISS low-resistance q6hr, and add lantus HS
DVT prophylaxis-on Lovenox.
GI prophylaxis-on pantoprazole.
Nutrition - start tube feeds
Patient critically ill; full code - continue with ICU level of care
Critical care statement: A total of 42 minutes of critical care time was provided for this patient today. This includes management of unstable vital signs, evaluation of the patient at bedside, reviewing the patient's pertinent medical records
including radiographs, microbiology, laboratory evaluations, and discussion with primary team, consultants, pharmacy, nutrition, physical therapy, case management, charge nurse, critical care nursing, and respiratory therapy.
Studies:
CT chest 01/21/24-multiple pulmonary nodules stable dating back to 02/06/23-over 10 nodules, less than 2 mm
Chest x-ray 01/24/24-large dense lower lobe and lingular airspace disease consistent with pneumonia
CXR 01/25/2024:
Endotracheal tube tip projects in mid thoracic trachea. Nasoenteric tube courses below the diaphragm, tip is excluded by collimation.
Unchanged left mid/lower lung opacity which may represent pneumonia.
Subjective Dataa
Subjective Data
Date of Service:
Date of Service: January 25, 2024
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
Subjective:
Patient was seen and evaluated today at bedside. Was transferred to ICU overnight due to worsening respiratory distress while on high flow nasal cannula and intubated by anesthesia. She remains intubated on AC/CMV at 14/450, with PEEP of 10, FiO2
90%, with PIP 29 cmH2O, VTe 446mL and breathing at 14 breaths/min. She is sedated on propofol at 30mcg/kg/min + fentanyl 100mcg/hr. Also BP supported with Levophed at 2 mcg/min. Current BP 108/55, heart rate 71 and saturating 100%. She has some
bloody secretions via the ETT with end-tidal CO2 36. She is sedated, becoming hypoxic at times while on her left side. Otherwise appears comfortable in no acute distress.
Review of Systems
General: Unobtainable - Sedation (+ Intubated)
Objective Data
Data Reviewed
Vital Signs / I&O / Oxygen:
Vital Signs
Temp Pulse Resp BP Pulse Ox
98.7 F 72 14 78/46 100
01/25/24 07:00 01/25/24 08:13 01/25/24 08:13 01/25/24 06:00 01/25/24 08:14
Intake and Output
01/24/24 01/25/24 01/26/24
06:59 06:59 06:59
Intake Total 777.4 / 818.8 82.8 / 82.8
Output Total 1830 / 1830
Balance -1052.6 / -1011.2 57.8 / 57.8
SaO2 [A/C] 99
SaO2 100
Nasal Cannula flow liters per 50
minute
Physical Exam
General: Respiratory Distress (negative), Chills (negative) and Sweats (negative)
HEENT: Normocephalic, Anicteric and Other (ETT in place)
Cardiovascular: S1-S2 and Peripheral Edema (negative)
Respiratory: Wheeze (negative), Crackles (Left base), Rhonchi (negative), ET Tube (Mechanical breath sounds heard bilaterally) and Other (Diminished breath sounds in left base)
GI: Soft, Distended (Abdominal obesity), Non Tender and Normal Bowel Sounds
Neurology: Tremors (negative), Other (Pupils 1 mm bilaterally and sluggish) and Other (Sedated)
Skin: Warm, Dry, Cyanosis (negative) and Jaundice (negative)
Labs/Micro/Reports
Lab Data
01/25/24 06:25
Laboratory Results
01/24/24 01/25/24
22:53 03:42
pH 7.41 7.57 H
pCO2 60 H 42 H
pO2 56 L* 111 H
HCO3 38.0 H 38.5 H
O2 Delivery Level Vent
Microbiology
01/24/24 05:30 Blood/Venous Blood Culture - Preliminary
No Growth in 24 hours- Final report to follow
01/24/24 06:00 Urine Legionella Urinary Antigen - Final
Negative for Legionella pneumophila Serogroup 1 antigen.
A negative result does not rule out the possiblity of
Legionella infection due to other serogroups or species of
Legionella. Clinical correlation is recommended.
01/24/24 06:00 Urine Streptococcus pneumoniae Antigen (M - Final
Negative for Streptococcus pneumoniae antigen.
A negative result does not exclude infection with
Streptococcus pneumoniae. Clinical correlation is
recommended.
01/24/24 06:29 Nasal Swab Influenza Types A & B (SUSHANT) - Final
Negative for Influenza A & B, NAAT
Negative results must be combined with clinical observations
and patient history.
Nucleic Acid Amplification test (NAAT)performed on the
[employer] platform.
--- NOTE | 2024-01-25 08:37 | W.PN.UPDATE ---
Update Note
Progress Note Update
Discussed with Sally serrano patient's senior living [facility], patient has no next of kin, referred to [employer] Mirian Tavarez [phone] who confirms [facility] is acting as patient's Guardian. women's ministry director updated with
patient's current condition, all questions answered.
--- NOTE | 2024-01-25 09:00 | W.PN.ID1 ---
Date of Service
Date of Service: January 25, 2024
Today's Communication
Check sputum cx.
Continue current abx's for now.
Assessment / Plan
# LLL CAP
# Mucous plugging
# Acute on chronic hypoxemic respiratory failure, intubated
# Fever
# Leukocytosis
# COPD on home 2LO2 (never smoked)
- Of note, CT chest neg PNA 3 days prior to admission
- urine legionella and pneumococcal antigen negative
- Check sputum cx.
- Manager Business Management broadened abx's to cefepime, Vancomycin, and continue on doxycycline.
- If MRSA screen negative, dc Vancomycin
- Trend temps, wbc and oxygen status
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
Schizophrenia
Diabetes mellitus
COPD on 2L02
Pulmonary nodules
Hypertension
Hypothyroidism
Heart failure with preserved EF
BMI 36
Appendectomy
Cholecystectomy
Chief Complaint
-: Pneumonia
Subjective / Review of Systems
Pt was in respiratory distress last night, intubated overnight.
Vital Signs / Physical Exam
Vital Signs
Vital Signs
Temp Pulse Resp BP Pulse Ox
98.7 F 72 14 78/46 100
01/25/24 07:00 01/25/24 08:13 01/25/24 08:13 01/25/24 06:00 01/25/24 08:14
Selected Entries
01/24/24
23:00
Temp 103.0 F H
Physical Exam
Constitutional: Acutely Ill
Cardiovascular: Regular Rate and S1/S2
Pulmonary: Clear (anteriorly)
Gastrointestinal: Soft, Non Tender, Non Distended and Normal Bowel Sounds
Extremities: Negative Edema
Objective Data
Lab Data
Lab Results
01/25/24 06:25
PT 14.8 Sec (11.4-14.6) H 01/24/24 04:57
INR 1.11 01/24/24 04:57
APTT 30.8 Sec (23.4-35.0) 01/24/24 04:57
Estimated Creat Clear 48 ml/min 01/25/24 06:25
Lactic Acid Cancelled 01/24/24 09:15
Total Bilirubin Cancelled 01/24/24 04:57
AST Cancelled 01/24/24 04:57
ALT Cancelled 01/24/24 04:57
Alkaline Phosphatase Cancelled 01/24/24 04:57
Most recent labs reviewed.
Micro Results:
01/24/24 05:30 Blood Culture - Preliminary
Blood/Venous No Growth in 24 hours- Final report to follow
01/24/24 22:34 MRSA Screen - Pending
Nose
01/24/24 06:00 Legionella Urinary Antigen - Final
Urine Negative for Legionella pneumophila Serogroup 1 antigen.
A negative result does not rule out the possiblity of
Legionella infection due to other serogroups or species of
Legionella. Clinical correlation is recommended.
Streptococcus pneumoniae Antigen (M - Final
Negative for Streptococcus pneumoniae antigen.
A negative result does not exclude infection with
Streptococcus pneumoniae. Clinical correlation is
recommended.
01/24/24 06:29 Influenza Types A & B (SUSHANT) - Final
Nasal Swab Negative for Influenza A & B, NAAT
Negative results must be combined with clinical observations
and patient history.
Nucleic Acid Amplification test (NAAT)performed on the
[employer] platform.
01/24/24 CXR: LARGE DENSE LEFT LOWER LOBE and LINGULAR AIRSPACE CONSOLIDATION which has markedly increased since 01/21/2024. Diagnostic possibilities are (1) severe left lower lobe pneumonia or (2) severe atelectasis in the left lower lobe and
lingula secondary to endobronchial mucous plugging. New mild right to left mediastinal shift consistent with volume loss in the left lung. Mild cardiomegaly.
01/21/24 CT chest: The appearance, stability and multiplicity of the multiple tiny bilateral pulmonary nodules dating back to 02/06/2023 indicate that they are benign
Care Review
Plan reviewed with: Physician (Dr. Cuenca)
[2024-01-25] MEDS: VIBRAMYCIN 100 MG TUBE ×2 (09:27→22:58)
[2024-01-25 10:07] LABS: Glycohemoglobin (HgbA1c) 6.8 % (4.0-5.6)
--- NOTE | 2024-01-25 10:57 | W.PN.CD ---
Today's Communication / Plan
-
Hold Lasix
Resume home oral dose lasix 40 mg once BP improved
We will sign off please call with questions/concerns.
Impression / Plan
-
SOB - severe LLL PNA on cxr.
- management per hospitalist, IV ABX.
- requiring 50L at 60% oxygen via non-rebreather mask with sats 93%.
- multifactorial with PNA, COPD, HFpEF, bronchitis. continue supportive treatments.
HFpEF - chronic
- appears euvolemic now
- goal for even volume management
- continue Farxiga.
- check echo.
HTN - stable on medical therapy, monitor.
IDDM - insulin, per hospitalist.
Schizophrenia - chronic, stable.
- continue meds.
- lives in a longterm.
Physical Exam
Vital Signs/Labs
Vital Signs
Temp Pulse Resp BP Pulse Ox
98.7 F 72 14 78/46 100
01/25/24 07:00 01/25/24 08:13 01/25/24 08:13 01/25/24 06:00 01/25/24 09:37
01/24/24 01/25/24 01/26/24
06:59 06:59 06:59
Actual Weight 207 lb 7.28 oz 205 lb 7.533 oz
01/25/24 06:25
PT 14.8 Sec (11.4-14.6) H 01/24/24 04:57
INR 1.11 01/24/24 04:57
APTT 30.8 Sec (23.4-35.0) 01/24/24 04:57
Magnesium 2.1 mg/dl (1.6-2.3) 01/25/24 06:25
Triglycerides 137 mg/dl (10-149) 01/25/24 02:32
01/24/24
04:57
Isr-L-Dyqubtxzfka Pept 1360
LAB Results
01/24/24 01/24/24 01/24/24
04:57 09:32 15:32
Troponin I < 0.012 Cancelled Cancelled
01/24/24
21:32
Troponin I Cancelled
Physical Exam
Constitutional: Other (intubated )
EENT: Other (ET tube in place)
Cardiovascular: Rhythm & rate is regular and Pedal edema is absent
Respiratory: Rhonchi Present
GI: Soft
Neuro/Psych: Other (intubated and sedated )
Data Reviewed
-
Date of Service: January 25, 2024
EKG: Tracing Personally Visualized and interpreted ()
Echo: Tracing Personally Visualized and interpreted
Labs: Labs Reviewed by me
--- NOTE | 2024-01-25 12:00 | PTCARENOTE ---
Pt follows commands. Remains on Fentanyl and Propofol gtt.
Sinus rhythm.
Vent settings A/C 14/450/90%/8. SECURITY MANAGER weaning FiO2 and PEEP as able. Lungs CTA. Scant blood tinged secretions.
Will start tube feeds today per MD. No BM
Clear lay urine via dorman.
All other assessments per charting.
[2024-01-25 12:08] LABS: Glucose - Point of Care 162 mg/dl (70-99)
[2024-01-25 12:14] LABS: Hematocrit 28.4 % (37.0-47.0); Hemoglobin 9.3 g/dL (12.0-16.0)
[2024-01-25 12:39] LABS: Vancomycin Random 20.9 ug/ml
[2024-01-25] MEDS: SOLU-MEDROL PF 40 MG IV ×2 (14:39→22:59)
[2024-01-25] MEDS: DIAMOX 250 MG TUBE ×2 (14:39→22:58)
--- NOTE | 2024-01-25 16:44 | PTCARENOTE ---
Low grade temp 100.7 via dorman
Tube feeds started.
Pt nodding appropriately. Weaning sedation.
All other assessments unchanged.
[2024-01-25 17:58] LABS: Glucose - Point of Care 182 mg/dl (70-99)
[2024-01-25] MEDS: ROBITUSSIN 200 MG PO ×2 (18:05→22:58)
[2024-01-25] MEDS: LOVENOX 40 MG SC (18:06)
--- NOTE | 2024-01-25 18:46 | PTCARENOTE ---
SpO2 dropped to 87% with turn. Recovered to 92% after 10min on 100% FiO2. Now 93% on 70% FiO2
[2024-01-25] MEDS: FLOVENT 110 MCG INHALER 4 PUFF INH (20:47)
--- NOTE | 2024-01-25 21:15 | PTCARENOTE ---
Assumed care of pt at 1900. Received pt intubated, #8 ETT/23cm at lip, AC 14/450/70/5, but increased to 8 of PEEP by RT shortly after start of shift. Sedated on Propofol and Fentanyl, Levophed was infusing at 3mcg/min at start of shift, turned off
shortly before 2100 (see med titration flowsheet for details). Pt awakens to voice or light tactile stimuli, able to follow simple commands. SR 70s on monitor. See nursing shift assessment flowsheet for full physical assessment details.
[2024-01-25] MEDS: DEPAKENE 500 MG TUBE (22:58)
[2024-01-25] MEDS: KLONOPIN 1.5 MG TUBE (22:59)
[2024-01-25] MEDS: ZYPREXA 10 MG TUBE (22:59)
[2024-01-26] VITALS (24 sets, daily range): BP systolic 101–135; BP diastolic 49–60; BMI 35.9
[2024-01-26] MEDS: LANTUS 0.08 UNITS SC (00:09)
[2024-01-26] MEDS: MAXIPIME 2000 MG IV ×3 (00:10→17:00)
[2024-01-26] MEDS: NOVOLOG FLEXPEN-LOW RESISTANCE SC ×2 (00:10→13:58)
[2024-01-26] MEDS: STERILE WATER FOR INJECTION 10 ML IV ×3 (00:10→17:00)
[2024-01-26] MEDS: NOVOLOG FLEXPEN 8 UNITS SC ×2 (00:11→06:24)
[2024-01-26 00:15] LABS: Glucose - Point of Care 265 mg/dl (70-99)
[2024-01-26] MEDS: NOVOLOG FLEXPEN-LOW RESISTANCE 3 UNITS SC ×2 (00:19→06:00)
--- NOTE | 2024-01-26 00:43 | PTCARENOTE ---
Midnight assessment unchanged. Remains on same vent settings, continues on Propofol and Fentanyl, Levophed remains off and pt has been maintaining MAP >65. SR 70s, SpO2 91-94%.
[2024-01-26] MEDS: DIPRIVAN 100 IV ×3 (02:27→17:39)
[2024-01-26 04:19] LABS: B.E. 5.8 mmol/L; HCO3 31.1 mmol/L (21-28); O2 Saturation % 96.7 % (94-98); PCO2 48 mmHg (32-35); PO2 72 mmHg (83-108); pH 7.42 (7.35-7.45)
[2024-01-26 05:10] LABS: Hematocrit 28.4 % (37.0-47.0); Hemoglobin 9.2 g/dL (12.0-16.0); Mean Corp Hgb Conc. 32.4 g/dL (33.0-37.0); Mean Corpuscular Hgb 34.3 pg (27.0-31.0); Mean Platelet Volume 10.2 fL (7.4-10.4); Platelet Count 153 10^3/uL (130-400); Red Blood Cell Count 2.68 10^6/uL (4.20-5.40); Red Cell Dist. Width 14.6 % (11.5-14.5); White Blood Cell Count 10.1 10^3/uL (4.8-10.8)
[2024-01-26] MEDS: SUBLIMAZE 100 IV ×2 (05:26→21:10)
[2024-01-26 05:59] LABS: Procalcitonin 1.57 ng/ml (0.0-0.25)
[2024-01-26 05:59] LABS: Glucose - Point of Care 315 mg/dl (70-99)
[2024-01-26 06:07] LABS: Blood Urea Nitrogen 46 mg/dl (7-17); Calcium 8.6 mg/dl (8.4-10.2); Carbon Dioxide 30 mmol/L (22-30); Chloride 98 mmol/L (98-107); Estimated Creatinine Clearance 44 ml/min; Glucose 280 mg/dl (70-99); Magnesium 2.5 mg/dl (1.6-2.3); Phosphorus 4.2 mg/dl (2.5-4.5); Potassium 3.6 mmol/L (3.5-5.1); Sodium 141 mmol/L (135-145); eGFR 42.27
[2024-01-26] MEDS: SYNTHROID 75 MCG PO (06:23)
--- NOTE | 2024-01-26 06:51 | PTCARENOTE ---
Assessment at 0400 unchanged. CHG bath done and linens changed. ABG done by RT, vent settings changed to AC 16/450/80/8. Remains on Propofol and Fentanyl, off Levophed.
[2024-01-26 07:00] LABS: Folate > 20.0 ng/ml (2.76-20); Vitamin B12 671 pg/ml (239-931)
--- NOTE | 2024-01-26 07:03 | W.PN.HOSP.TC ---
Today's Communication/Plan
-
IV iron supplementation
vent sedation as per ICU
abx as per ID
resume home oral Lasix
Assessment / Plan
Assessment / Plan
Physical Exam
General: Sedated Obese
HEENT: Moist mucous membranes, Pinpoint pupils b/l
Respiratory: Intubated Ronchi on auscultation
Cardiac: S1/S2 Tachycardia; No Murmur
GI: Soft, some distension noted, decreased bowel sounds
Musculoskeletal: No Clubbing, No Cyanosis and No Edema
Neuro: Sedated but responsive to physical stimuli nonresponsive to verbal
A/P: Patient is a 63y F with PMH significant for schizophrenia, DM-II and COPD who presents to ED complaining of cough and SOB.
Acute on Chronic Hypoxemic Respiratory Insufficiency
Acute Respiratory Failure required intubation overnight 01/23-01/24
- IMU admit transferred to ICU
- Suspect multifactorial with components of LLL pneumonia vs atelectasis vs pulmonary edema
- Baseline chronic O2 supplementation 2L at home
-vent setting sedation as per ICU
LLL Pneumonia vs Atelectasis Mucus plugging
Septic Shock (fever leukocytosis requiring pressor support)
- CXR with dense opacity in the L base concerning for Pneumonia vs Atelectasis mucus plugging
- Pulm eval appreciated Diamox provided with subsequent improvement Metabolic Alkalosis
- ID eval appreciated cont Cefipime Doxycycline
- Supportive care including mucolytics, nebs, Chest PT VEST therapy if able or similar therapy as per ICU
-weaned off Levophed
Severe Iron deficiency Anemia
-monitor H&H
-IV iron supplementation
Acute on Chronic HFpEF
- Weight is increased from prior noted baseline per our records.
- BNP significantly elevated from prior as well.
- Monitor I/Os, daily weights
- ECHO appreciated EF 60-65% compared with prior ECHO Feb 2022 mild aortic stenosis new finding.
- Cardio Eval appreciated home oral Lasix resumed with improvement in pressures weaned off pressors
Mild AMBERLY vs CKD 3
Cr consistently 1.3 or close to
cont to monitor on diuresis as above
COPD without Acute Exacerbation
Acute Bronchitis
- No active wheezing appreciated on exam, but cough x 2 weeks and increased dyspnea.
- Continue inhaled corticosteroids, nebs
Aspiration precautions.
Eventual Speech evaluation (if patient amenable)
Schizoaffective Disorder
- Continue current psychotropic med regimen.
Benign Hypertension
�- Stable.� Continue home med regimen.
DM-II
Steroid induced hyperglycemia
�- Stable.� Continue outpatient Farxiga. Hold metformin acutely.
- Continue basal : bolus insulin regimen.
�- SSI coverage as needed.
- A1C 6.8
- Novolog 8U Q6 Lantus 8U HS sugars uncontrolled, increased to Novolog 10U Q6 and Lantus 10U HS
Hypothyroidism
�- Continue home T4 supplementation.
Obesity due to excess calories and insulin resistance.
�- Affects all aspects of care.
�- Encourage healthy diet and increased activity with goal of weight loss.
DVT Prophylaxis:� Lovenox
Code Status:� Full
Discussed with and updated Mirian Tavarez [phone] patient's nursing home linux programmer and essentially acting POA
Total Critical Care Time__50___ minutes. I was immediately available to the patient and staff. I personally examined, reviewed labs, diagnostic images/reports, interpretations, treatment plans, discussed patient care with other providers and
family or caregivers (if patient is unable to make decisions), entered orders as appropriate and documented the medical record.
Anticipated Discharge: > 48 hours
Subjective/Interval History
-
Date of Service: January 26, 2024
Sedated but responsive to physical stimuli, nonresponsive to verbal stimuli
Objective Data
-
Labs:
Laboratory Results
01/26/24 01/26/24
04:10 05:00
WBC 10.1
Hgb 9.2 L
Hct 28.4 L
Plt Count 153
HCO3 31.1 H
Sodium 141
Potassium 3.6
Chloride 98
Carbon Dioxide 30
BUN 46 H
Creatinine 1.4 H
Glucose 280 H
Calcium 8.6
Vital Signs:
Vital Signs
Temp Pulse Resp BP Pulse Ox
99.2 F 72 16 117/56 92
01/25/24 23:21 01/26/24 06:00 01/26/24 06:00 01/26/24 06:00 01/26/24 06:00
I&O
01/25/24 01/26/24 01/27/24
06:59 06:59 06:59
Intake Total 777.4 / 818.8 1348.0 / 1348.0
Output Total 1829 / 1829
Balance -1052.6 / -1011.2 -482.0 / -482.0
[2024-01-26 07:37] LABS: Iron < 20 ug/dl (37-170)
[2024-01-26 07:44] LABS: Total Iron Binding Capacity 225 ug/dl (265-497)
[2024-01-26] MEDS: FLOVENT 110 MCG INHALER 4 PUFF INH ×2 (07:53→18:03)
[2024-01-26] MEDS: DUONEB 3 ML INH ×4 (07:53→18:03)
--- NOTE | 2024-01-26 08:22 | W.PN.INTV ---
Today's Communication / Plan
Recommendations
Continue with mechanical ventilation and wean down PEEP + FiO2 as tolerated
Placed position to right side down given hypoxia with left side down
Suction as needed
Antibiotics
Follow cultures
Trend blood gas
Gentle diuresis
Maintain MAP >65
Continue tube feeds
Goal BG 140-180 with basal-bolus insulin; may need insulin gtt
Critically ill; continue ICU level of care
Assessment
-
63-year-old female with a history of underlying schizophrenia, diabetes, asthma, presented with cough and shortness of breath noted mucous plugs and pneumonia-pulmonary consulted for pneumonia/COPD/mucous plugs 01/24/24. She had worsening
respiratory distress and was transferred to the ICU on the evening of 01/23 and intubated on 01/25/2024.
Impression:
Acute respiratory failure with hypoxia + hypercapnia now on mechanical ventilation (intubated 01/25/2024)
Metabolic alkalosis due to chronic hypercapnia with CO2 now being acutely blown off s/p intubation
Left lower lobe pneumonia-nosocomial
Shock - due to sedation in setting of sepsis - shock state now resolved
Aspiration risk.
CHF-preserved EF with normal RV size and function
Mild aortic stenosis
Asthma with acute exacerbation due to pneumonia
Leukocytosis - now resolved
Anemia - stable
DM type II c/b hyperglycemia
AMBERLY (baseline Cr 0.8) - worsening
History of mild restrictive lung disease (post�bronchodilator FVC: 69% / 2.04 L via spirometry on 12/12/2020)
Conditions present prior to admission:
Bipolar.
Schizophrenia.
Borderline personality disorder
Diabetes.
Hypertension.
Hypothyroid.
Obesity.
COPD/asthma overlap.
CIELO on CPAP
Anemia.
GERD.
Chronic heart failure, preserved EF.
Appendectomy. Cholecystectomy
Plan
Patient deteriorated with worsening work of breathing/respiratory distress on the evening of 01/23 and was intubated shortly after midnight on 01/25/2024
- Continue with mechanical ventilation and once PEEP is at 5 then would start weaning down FiO2 to goal of 50%
- Once PEEP is 5 and FiO2 50% then would start SAT/SBT if clinically appropriate
- Titrate FiO2 + PEEP to maintain SpO2 >90-94%
- Switch her position to right side down given the degree of atelectasis on her left lung; may need bronchoscopy prior to extubation for pulmonary toilet purposes
- trend blood gas and adjust vent daily as needed
- Given her serum HCO3 is >30 with pH>7.55, I gave diamox on 01/25/2024 --> blood gas improved with pH reducing from 7.57 on 01/24 to 7.42 on 01/25
- Maintain plateau pressure <30
- Suction as needed
- DuoNebs QID with prn doses in between
- Since on Advair as an outpatient, start flovent while intubated
- Given she has Hx of asthma now on high PEEP and high FiO2, on 01/24 I started solumedrol at 40mg IV q12hr and wean as tolerated
- Mucolytics with mucinex
Follow-up blood culture (01/24/2024, and sputum culture (collected today)
- Continue with cefepime/doxycycline; ceftriaxone DC'd
- ID consulted - recs appreciated
- Monitor leukocytosis and temperature curve
- Follow radiographically
- Trend procal to assure we have source control
Diuresis on hold given she was on vasopressors since being intubated - last dose given on AM of 01/24
- Shock state now resolved, but given her septic state, would be careful reducing preload; she takes lasix at home --> resume PO lasix 40mg daily
- Cardiology consulted and recommendations appreciated
- Monitor intake, output, + daily weight
- Replete K>4, Mg>2
Monitor hemoglobin; transfuse if needed to keep Hb>7, plt>20k
- B12 level is WNL at 671; folate level is WNL at >20
Monitor blood sugar with goal BG 140-180
- Given her BG is >250, raise her aspart 8 units q6hr to 12 units q6hr, and raise ISS from low-resistance to high resistance q6hr, and increase lantus HS from 8 to 25 units BID
- Give 12 units NPH now to help reduce her hyperglycemia for remainder of today, then resume lantus tonight
- She may need insulin gtt if BG remains elevated
DVT prophylaxis-on Lovenox.
GI prophylaxis-on pantoprazole.
Nutrition - continue tube feeds
Patient critically ill; full code - continue with ICU level of care
Critical care statement: A total of 47 minutes of critical care time was provided for this patient today. This includes management of unstable vital signs, evaluation of the patient at bedside, reviewing the patient's pertinent medical records
including radiographs, microbiology, laboratory evaluations, and discussion with primary team, consultants, pharmacy, nutrition, physical therapy, case management, charge nurse, critical care nursing, and respiratory therapy.
Studies:
CT chest 01/21/24-multiple pulmonary nodules stable dating back to 02/06/23-over 10 nodules, less than 2 mm
Chest x-ray 01/24/24-large dense lower lobe and lingular airspace disease consistent with pneumonia
CXR 01/25/2024:
Endotracheal tube tip projects in mid thoracic trachea. Nasoenteric tube courses below the diaphragm, tip is excluded by collimation.
Unchanged left mid/lower lung opacity which may represent pneumonia.
Subjective Dataa
Subjective Data
Date of Service:
Date of Service: January 26, 2024
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
Subjective:
Patient was seen and evaluated this morning. Increased thick secretions noted through ETT which are yellow and blood-tinged. Currently intubated on AC/CMV at 16/450/8/80%, with saturations 93%, heart rate 79 and BP 117/56. Currently sedated on
propofol at 20 mcg/kg/min + fentanyl at 100mcg/hr. End-tidal CO2 24. With nursing care, she becomes tachypneic. She is awakening easily and following all commands.
Review of Systems
General: Other (Unable to obtain as patient is sedated and on ventilator)
Objective Data
Data Reviewed
Vital Signs / I&O / Oxygen:
Vital Signs
Temp Pulse Resp BP Pulse Ox
99.8 F 77 16 124/59 92
01/26/24 07:34 01/26/24 09:00 01/26/24 09:00 01/26/24 09:00 01/26/24 09:00
Intake and Output
01/25/24 01/26/24 01/27/24
06:59 06:59 06:59
Intake Total 777.4 / 818.8 1348.0 / 1368.9 62.7 / 62.7
Output Total 1830 / 1830 1830 / 1830 255 / 255
Balance -1052.6 / -1011.2 -482.0 / -461.1 -192.3 / -192.3
SaO2 [A/C] 93
SaO2 92
Nasal Cannula flow liters per 50
minute
Physical Exam
General: Respiratory Distress (negative), Comfortable, Chills (negative) and Sweats (negative)
HEENT: Normocephalic, Anicteric and Other (ETT in place)
Cardiovascular: S1-S2 and Peripheral Edema (Trace lower extremity edema bilaterally)
Respiratory: Wheeze (negative), Crackles (Left base), Rhonchi (Left hemithorax) and ET Tube (Mechanical breath sounds heard bilaterally)
GI: Soft, Distended (Abdominal obesity), Non Tender and Normal Bowel Sounds
Neurology: Awake, Tremors (negative) and Other (Pupils 2 mm bilaterally and sluggish)
Skin: Warm, Dry, Cyanosis (negative) and Jaundice (negative)
Labs/Micro/Reports
Lab Data
01/26/24 05:00
01/26/24 05:00
Laboratory Results
01/26/24
04:10
pH 7.42
pCO2 48 H
pO2 72 L
HCO3 31.1 H
O2 Delivery Level
Microbiology
01/24/24 22:34 Nose MRSA Screen - Final
No Methicillin Resistant Staphylococcus aureus isolated.
01/24/24 05:30 Blood/Venous Blood Culture - Preliminary
No Growth in 48 hours- Final report to follow
01/25/24 08:34 Endotracheal Gram Stain - Preliminary
01/24/24 06:00 Urine Legionella Urinary Antigen - Final
Negative for Legionella pneumophila Serogroup 1 antigen.
A negative result does not rule out the possiblity of
Legionella infection due to other serogroups or species of
Legionella. Clinical correlation is recommended.
01/24/24 06:00 Urine Streptococcus pneumoniae Antigen (M - Final
Negative for Streptococcus pneumoniae antigen.
A negative result does not exclude infection with
Streptococcus pneumoniae. Clinical correlation is
recommended.
01/24/24 06:29 Nasal Swab Influenza Types A & B (SUSHANT) - Final
Negative for Influenza A & B, NAAT
Negative results must be combined with clinical observations
and patient history.
Nucleic Acid Amplification test (NAAT)performed on the
[employer] platform.
[2024-01-26] MEDS: COLACE LIQUID 100 MG TUBE ×2 (08:34→21:41)
[2024-01-26] MEDS: DEPAKENE 500 MG TUBE ×3 (08:34→21:24)
[2024-01-26] MEDS: MIRALAX 17 GRAMS TUBE (08:34)
[2024-01-26] MEDS: FARXIGA 10 MG TUBE (08:35)
[2024-01-26] MEDS: ZETIA 10 MG TUBE (08:35)
[2024-01-26] MEDS: VALTREX 500 MG TUBE (08:35)
[2024-01-26] MEDS: VIBRAMYCIN 100 MG TUBE ×2 (08:35→21:24)
[2024-01-26] MEDS: ROBITUSSIN 200 MG PO ×4 (08:35→21:24)
[2024-01-26] MEDS: PROZAC 20 MG TUBE (08:35)
[2024-01-26] MEDS: SOLU-MEDROL PF 40 MG IV ×2 (08:36→21:24)
--- NOTE | 2024-01-26 09:04 | W.PN.ID1 ---
Date of Service
Date of Service: January 26, 2024
Today's Communication
Continue cefepime and doxycycline fo now
Assessment / Plan
# LLL pneumonia
# Mucous plugging
# Acute on chronic hypoxemic respiratory failure, VDRF/intubated
# Fever - trending down
# Leukocytosis - resolved
# COPD on home 2LO2 (never smoked)
- Of note, CT chest neg PNA 3 days prior to admission
-bcx's neg to date
- urine legionella and pneumococcal antigen negative
- sputum cx pending. gram stain: GPC
- Continue cefepime and doxycycline for now
- If MRSA screen pending
- Trend temps, wbc and oxygen status
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
Schizophrenia
Diabetes mellitus
COPD on 2L02
Pulmonary nodules
Hypertension
Hypothyroidism
Heart failure with preserved EF
BMI 36
Appendectomy
Cholecystectomy
Chief Complaint
-: Pneumonia
Subjective / Review of Systems
Remains on vent.
Vital Signs / Physical Exam
Vital Signs
Vital Signs
Temp Pulse Resp BP Pulse Ox
99.8 F 72 16 117/56 93
01/26/24 07:34 01/26/24 08:00 01/26/24 08:00 01/26/24 06:00 01/26/24 08:02
Selected Entries
01/25/24
15:00
Temp 100.7 F H
Physical Exam
Constitutional: Acutely Ill
Eyes: Sclera Anicteric
Cardiovascular: Regular Rate and S1/S2
Pulmonary: Clear (anterior lungs)
Gastrointestinal: Soft, Non Tender, Non Distended and Normal Bowel Sounds
Genito-Urinary: Del Castillo and Clear Urine
Extremities: Negative Edema
Objective Data
Lab Data
Lab Results
01/26/24 05:00
01/26/24 05:00
PT 14.8 Sec (11.4-14.6) H 01/24/24 04:57
INR 1.11 01/24/24 04:57
APTT 30.8 Sec (23.4-35.0) 01/24/24 04:57
Estimated Creat Clear 44 ml/min 01/26/24 05:00
Lactic Acid Cancelled 01/26/24 06:00
Total Bilirubin Cancelled 01/24/24 04:57
AST Cancelled 01/24/24 04:57
ALT Cancelled 01/24/24 04:57
Alkaline Phosphatase Cancelled 01/24/24 04:57
Most recent labs reviewed.
Micro Results:
01/24/24 05:30 Blood Culture - Preliminary
Blood/Venous No Growth in 48 hours- Final report to follow
01/25/24 08:34 Respiratory Culture - Pending
Endotracheal Gram Stain - Preliminary
01/24/24 22:34 MRSA Screen - Pending
Nose
01/24/24 06:00 Legionella Urinary Antigen - Final
Urine Negative for Legionella pneumophila Serogroup 1 antigen.
A negative result does not rule out the possiblity of
Legionella infection due to other serogroups or species of
Legionella. Clinical correlation is recommended.
Streptococcus pneumoniae Antigen (M - Final
Negative for Streptococcus pneumoniae antigen.
A negative result does not exclude infection with
Streptococcus pneumoniae. Clinical correlation is
recommended.
01/24/24 06:29 Influenza Types A & B (SUSHANT) - Final
Nasal Swab Negative for Influenza A & B, NAAT
Negative results must be combined with clinical observations
and patient history.
Nucleic Acid Amplification test (NAAT)performed on the
[employer] platform.
01/26/24 CXR: Similar appearance of the left mid/lower lung opacity which likely represents pneumonia.
01/24/24 CXR: LARGE DENSE LEFT LOWER LOBE and LINGULAR AIRSPACE CONSOLIDATION which has markedly increased since 01/21/2024. Diagnostic possibilities are (1) severe left lower lobe pneumonia or (2) severe atelectasis in the left lower lobe and
lingula secondary to endobronchial mucous plugging. New mild right to left mediastinal shift consistent with volume loss in the left lung. Mild cardiomegaly.
01/21/24 CT chest: The appearance, stability and multiplicity of the multiple tiny bilateral pulmonary nodules dating back to 02/06/2023 indicate that they are benign
Care Review
Plan reviewed with: Physician (Dr. Cuenca)
[2024-01-26] MEDS: LASIX 40 MG PO (10:59)
[2024-01-26 11:17] LABS: Glucose - Point of Care 294 mg/dl (70-99)
--- NOTE | 2024-01-26 11:44 | PTCARENOTE ---
Pt drowsy. Follows commands. Remains on Propofol and Fentanyl. CPOT 0. Fentanyl gtt weaned.
No SBT today d/t FiO2 80%. Pt became tachypneic when turned. RR increased to 45 without drop in SpO2. Recovered within 5min without intervention. RR 16, SpO2 94% at this time.
Tolerating tube feeds at goal. No BM so far this shift. BS elevated. Dr Heller notified and making insulin adjustments.
Good urine output. See I&Os
All other assessments unchanged.
[2024-01-26] MEDS: NOVOLOG FLEXPEN-HIGH RESISTANCE 10 UNITS SC ×2 (13:09→17:45)
[2024-01-26 13:22] LABS: Glucose - Point of Care 323 mg/dl (70-99)
[2024-01-26] MEDS: NOVOLOG FLEXPEN SC (13:40)
[2024-01-26] MEDS: NOVOLIN N vial 0.12 UNITS SC (14:12)
[2024-01-26] MEDS: FERRLECIT 110 MG IV (15:45)
[2024-01-26] MEDS: LOVENOX 40 MG SC (16:59)
[2024-01-26] MEDS: NOVOLOG FLEXPEN 12 UNITS SC (17:45)
[2024-01-26 17:56] LABS: Glucose - Point of Care 315 mg/dl (70-99)
--- NOTE | 2024-01-26 20:42 | PTCARENOTE ---
Assumed care of pt at 1900. Received pt intubated #8.0 ETT, 23 cm at lip, AC 16/450/70/8. SR 70s on monitor, SpO2 has ranged anywhere from 91-96%. See nursing shift assessment flowsheet for full physical assessment details. Sedated on Propofol at
20mcg/kg/min and Fentanyl at 50mcg/hr.
[2024-01-26] MEDS: LANTUS 0.25 UNITS SC (21:23)
[2024-01-26] MEDS: ZYPREXA 10 MG TUBE (21:24)
[2024-01-26] MEDS: KLONOPIN 1.5 MG TUBE (21:24)
[2024-01-26 21:28] LABS: Glucose - Point of Care 264 mg/dl (70-99)
[2024-01-27] VITALS (25 sets, daily range): BP systolic 111–137; BP diastolic 45–74; BMI 35.6
[2024-01-27] MEDS: MAXIPIME 2000 MG IV ×3 (00:40→19:56)
[2024-01-27] MEDS: DIPRIVAN 100 IV ×4 (00:40→19:27)
[2024-01-27] MEDS: NOVOLOG FLEXPEN-HIGH RESISTANCE 10 UNITS SC ×2 (00:41→05:54)
[2024-01-27] MEDS: STERILE WATER FOR INJECTION 10 ML IV ×3 (00:41→19:56)
[2024-01-27] MEDS: NOVOLOG FLEXPEN 12 UNITS SC ×2 (00:41→05:54)
[2024-01-27 00:51] LABS: Glucose - Point of Care 333 mg/dl (70-99)
--- NOTE | 2024-01-27 01:09 | PTCARENOTE ---
Physical assessment unchanged. Remains on Propofol and Fentanyl drips for sedation, remains on same vent settings. SpO2 90-92% currently. SR 70s on monitor.
[2024-01-27 04:22] LABS: B.E. 4.5 mmol/L; HCO3 29.2 mmol/L (21-28); O2 Saturation % 95.1 % (94-98); PCO2 43 mmHg (32-35); PO2 66 mmHg (83-108); pH 7.44 (7.35-7.45)
[2024-01-27 04:44] LABS: Hematocrit 27.9 % (37.0-47.0); Hemoglobin 9.3 g/dL (12.0-16.0); Mean Corp Hgb Conc. 33.3 g/dL (33.0-37.0); Mean Corpuscular Hgb 34.3 pg (27.0-31.0); Mean Platelet Volume 10.4 fL (7.4-10.4); Platelet Count 178 10^3/uL (130-400); Red Blood Cell Count 2.71 10^6/uL (4.20-5.40); Red Cell Dist. Width 14.7 % (11.5-14.5); White Blood Cell Count 8.8 10^3/uL (4.8-10.8)
[2024-01-27] MEDS: SUBLIMAZE 50 MCG IV ×5 (05:05→18:04)
[2024-01-27 05:07] LABS: Blood Urea Nitrogen 63 mg/dl (7-17); Calcium 8.6 mg/dl (8.4-10.2); Carbon Dioxide 27 mmol/L (22-30); Chloride 102 mmol/L (98-107); Estimated Creatinine Clearance 47 ml/min; Glucose 347 mg/dl (70-99); Magnesium 2.9 mg/dl (1.6-2.3); Potassium 3.6 mmol/L (3.5-5.1); Sodium 143 mmol/L (135-145); Triglycerides 255 mg/dl (10-149); eGFR 46.21
[2024-01-27 06:01] LABS: Glucose - Point of Care 343 mg/dl (70-99)
[2024-01-27] MEDS: FLOVENT 110 MCG INHALER 4 PUFF INH ×2 (07:19→20:10)
[2024-01-27] MEDS: DUONEB 3 ML INH ×4 (07:19→20:10)
[2024-01-27] MEDS: SOLU-MEDROL PF 40 MG IV ×2 (07:35→20:29)
[2024-01-27] MEDS: LANTUS 0.25 UNITS SC (07:35)
[2024-01-27 07:36] LABS: Glucose - Point of Care 346 mg/dl (70-99)
[2024-01-27] MEDS: VIBRAMYCIN 100 MG TUBE ×2 (07:55→19:57)
[2024-01-27] MEDS: MIRALAX 17 GRAMS TUBE (07:55)
[2024-01-27] MEDS: DEPAKENE 500 MG TUBE ×3 (07:55→21:15)
[2024-01-27] MEDS: SYNTHROID 75 MCG TUBE (07:55)
[2024-01-27] MEDS: PREVACID 30 MG TUBE (07:55)
[2024-01-27] MEDS: VALTREX 500 MG TUBE (07:55)
[2024-01-27] MEDS: COLACE LIQUID 100 MG TUBE ×2 (07:55→19:57)
[2024-01-27] MEDS: ROBITUSSIN 200 MG PO ×4 (07:55→21:15)
[2024-01-27] MEDS: PROZAC 20 MG TUBE (07:56)
[2024-01-27] MEDS: LASIX 40 MG PO (07:56)
[2024-01-27] MEDS: FARXIGA 10 MG TUBE (07:56)
[2024-01-27] MEDS: ZETIA 10 MG TUBE (07:56)
--- NOTE | 2024-01-27 07:58 | W.PN.INTV ---
Today's Communication / Plan
Recommendations
Ventilator noted-adjust ventilator, wean FiO2 and then PEEP
Not ready for spontaneous breathing trial
Diuresis as tolerated
Antibiotics
Pressors as needed
Assessment
-
63-year-old female with a history of underlying schizophrenia, diabetes, asthma, presented with cough and shortness of breath noted mucous plugs and pneumonia-pulmonary consulted for pneumonia/COPD/mucous plugs 01/24/24. She had worsening
respiratory distress and was transferred to the ICU on the evening of 01/23 and intubated on 01/25/2024.
Impression:
Acute respiratory failure with hypoxia + hypercapnia now on mechanical ventilation
(intubated 01/25/2024)
Extubated
Metabolic alkalosis due to chronic hypercapnia with CO2 now being acutely blown off s/p intubation
Left lower lobe pneumonia-nosocomial
Shock - due to sedation in setting of sepsis - shock state now resolved
Aspiration risk.
CHF-preserved EF with normal RV size and function
Mild aortic stenosis
Asthma with acute exacerbation due to pneumonia
Leukocytosis - now resolved
Anemia - stable
DM type II c/b hyperglycemia
AMBERLY (baseline Cr 0.8) - worsening
History of mild restrictive lung disease (post�bronchodilator FVC: 69% / 2.04 L via spirometry on 12/12/2020)
Conditions present prior to admission:
Bipolar.
Schizophrenia.
Borderline personality disorder
Diabetes.
Hypertension.
Hypothyroid.
Obesity.
COPD/asthma overlap.
CIELO on CPAP
Anemia.
GERD.
Chronic heart failure, preserved EF.
Appendectomy. Cholecystectomy
Plan
Remains critically ill sedated on a ventilator-difficulties oxygenating likely due to underlying COPD and pneumonia
Ventilator settings reviewed
Airway pressures reviewed and adequate
Wean FiO2 and then PEEP-reviewed with TOOL AND DIE MAKER/DESIGNER
Follow ABG
Follow chest x-ray
VAP prevention protocol
DuoNebs continue
Zaobkjko-Fmhe-Zonkui 40 mg IV every 12 hours
If difficulties oxygenating then right side down to help with ventilation/perfusion matching
Bronchoscopy if mucous plugging
Mucolytic's
Diuresis as tolerated
Monitor renal function, electrolytes, intake/output, lower extremity edema and weight
Replace electrolytes as needed
Cardiology following-correspondence reviewed-signed off 01/25/2024
Check cultures
Empiric antibiotics
Infectious disease following-correspondence reviewed
Follow leukocytosis
Follow hemoglobin and platelet count
Transfuse as needed
Monitor blood sugar
Insulin drip
Diabetic nurse practitioner consult placed
DVT prophylaxis-on Lovenox.
GI prophylaxis-on pantoprazole while on the ventilator
Nutrition - continue tube feeds
Bedside range of motion, eventual physical therapy
Critical care statement: A total of 50 minutes of critical care time was provided for this patient today. This includes management of unstable vital signs, evaluation of the patient at bedside, reviewing the patient's pertinent medical records
including radiographs, ventilator management, pressor management, microbiology, laboratory evaluations, and discussion with primary team, consultants, pharmacy, nutrition, physical therapy, case management, charge nurse, critical care nursing, and
respiratory therapy.
Studies:
CT chest 01/21/24-multiple pulmonary nodules stable dating back to 02/06/23-over 10 nodules, less than 2 mm
Chest x-ray 01/24/24-large dense lower lobe and lingular airspace disease consistent with pneumonia
CXR 01/25/2024:
Endotracheal tube tip projects in mid thoracic trachea. Nasoenteric tube courses below the diaphragm, tip is excluded by collimation.
Unchanged left mid/lower lung opacity which may represent pneumonia.
Subjective Dataa
Subjective Data
Date of Service:
Date of Service: January 27, 2024
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
Subjective:
Still on the ventilator, sedated, moderate amount secretions, FiO2 requirements increased, review of systems unobtainable
Review of Systems
General: Unobtainable - Sedation
Objective Data
Data Reviewed
Vital Signs / I&O / Oxygen:
Vital Signs
Temp Pulse Resp BP Pulse Ox
100.1 F 67 16 121/58 94
01/27/24 04:19 01/27/24 07:20 01/27/24 07:20 01/27/24 06:00 01/27/24 07:20
Intake and Output
01/26/24 01/27/24 01/28/24
06:59 06:59 06:59
Intake Total 1348.0 / 1368.9 1782.6 / 1782.6
Output Total 1830 / 1830 2465 / 2465
Balance -482.0 / -461.1 -682.4 / -682.4
SaO2 [A/C] 93
SaO2 94
Nasal Cannula flow liters per 50
minute
Physical Exam
General: Respiratory Distress (negative), Comfortable, Chills (negative) and Sweats (negative)
HEENT: Normocephalic, Anicteric and Other (ETT in place)
Cardiovascular: Regular Rhythm and Peripheral Edema (Trace lower extremity edema bilaterally)
Respiratory: Wheeze (negative), Crackles (Left base), Rhonchi (Left hemithorax) and ET Tube (Mechanical breath sounds heard bilaterally)
GI: Soft, Distended (Abdominal obesity), Non Tender and Normal Bowel Sounds
Neurology: Awake, Tremors (negative) and Other (Pupils 2 mm bilaterally and sluggish)
Skin: Warm, Dry, Cyanosis (negative) and Jaundice (negative)
Labs/Micro/Reports
Lab Data
01/27/24 04:26
01/27/24 04:26
Laboratory Results
01/27/24
04:06
pH 7.44
pCO2 43 H
pO2 66 L
HCO3 29.2 H
O2 Delivery Level
Microbiology
01/24/24 05:30 Blood/Venous Blood Culture - Preliminary
No Growth in 72 hours- Final report to follow
01/25/24 08:34 Endotracheal Respiratory Culture - Preliminary
Usual Respiratory Ramila
01/25/24 08:34 Endotracheal Gram Stain - Preliminary
01/24/24 22:34 Nose MRSA Screen - Final
No Methicillin Resistant Staphylococcus aureus isolated.
01/24/24 06:00 Urine Legionella Urinary Antigen - Final
Negative for Legionella pneumophila Serogroup 1 antigen.
A negative result does not rule out the possiblity of
Legionella infection due to other serogroups or species of
Legionella. Clinical correlation is recommended.
01/24/24 06:00 Urine Streptococcus pneumoniae Antigen (M - Final
Negative for Streptococcus pneumoniae antigen.
A negative result does not exclude infection with
Streptococcus pneumoniae. Clinical correlation is
recommended.
01/24/24 06:29 Nasal Swab Influenza Types A & B (SUSHANT) - Final
Negative for Influenza A & B, NAAT
Negative results must be combined with clinical observations
and patient history.
Nucleic Acid Amplification test (NAAT)performed on the
[employer] platform.
--- NOTE | 2024-01-27 08:16 | PTCARENOTE ---
report received, assessments per work list. patient moves all extremities, opens eyes, not following commands. restless with stimulation. pulse oximeter 87-88 in spite of suctioning, percussion, neb. fio2 to 100% per RT. lungs with coarse breath
sounds. suctions for large amount bloody tinged [place] brown sputum, plugs. abdomen obese. hyper active bowel sounds. ogt placement verified by air auscultation. tube feeds on hold one hour prior to and post am Meds. to resume@[id number]. Del Castillo draining dark
yellow urine. midline in place, good blood return. fentanyl, Diprivan per work list. medicated with fentanyl prn for increased nonverbal pain cues. gtt adjustment per work list
[2024-01-27] MEDS: KCL ELIXIR 40 MEQ PO (09:54)
[2024-01-27] MEDS: NOVOLIN R INSULIN INFUSION 100 IV ×2 (10:48→19:06)
[2024-01-27] MEDS: NOVOLIN R 4 UNITS IV (10:49)
[2024-01-27 10:55] LABS: Glucose - Point of Care 226 mg/dl (70-99)
--- NOTE | 2024-01-27 11:10 | W.PN.ID1 ---
Date of Service
Date of Service: January 27, 2024
Today's Communication
Continue cefepime and doxycycline.
Assessment / Plan
# LLL pneumonia
# Mucous plugging
# Acute on chronic hypoxemic respiratory failure, VDRF/intubated
# Fever - resolved
# Leukocytosis - resolved
# COPD on home 2LO2 (never smoked)
- CT chest neg PNA 3 days prior to admission
-bcx's neg to date
- urine legionella and pneumococcal antigen negative
- sputum cx: usual respiratory jennifer
- MRSA screen negative
- Continue cefepime and doxycycline (d4).
- Follow clinically and oxygen status
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
Schizophrenia
Diabetes mellitus
COPD on 2L02
Pulmonary nodules
Hypertension
Hypothyroidism
Heart failure with preserved EF
BMI 36
Appendectomy
Cholecystectomy
Chief Complaint
-: Pneumonia
Subjective / Review of Systems
Currently sedated, on vent.
Vital Signs / Physical Exam
Vital Signs
Vital Signs
Temp Pulse Resp BP Pulse Ox
99.6 F 70 16 120/52 94
01/27/24 08:00 01/27/24 11:02 01/27/24 11:02 01/27/24 09:00 01/27/24 11:02
Physical Exam
Constitutional: Acutely Ill
Eyes: Sclera Anicteric
Cardiovascular: Regular Rate
Pulmonary: Clear (anteriorly)
Gastrointestinal: Soft, Non Tender and Non Distended
Genito-Urinary: Del Castillo and Clear Urine
Extremities: Edema
Objective Data
Lab Data
Lab Results
01/27/24 04:26
01/27/24 04:26
PT 14.8 Sec (11.4-14.6) H 01/24/24 04:57
INR 1.11 01/24/24 04:57
APTT 30.8 Sec (23.4-35.0) 01/24/24 04:57
Estimated Creat Clear 47 ml/min 01/27/24 04:26
Lactic Acid Cancelled 01/26/24 06:00
Total Bilirubin Cancelled 01/24/24 04:57
AST Cancelled 01/24/24 04:57
ALT Cancelled 01/24/24 04:57
Alkaline Phosphatase Cancelled 01/24/24 04:57
Most recent labs reviewed.
Micro Results:
01/25/24 08:34 Respiratory Culture - Final
Endotracheal Usual Respiratory Jennifer
Gram Stain - Final
01/24/24 05:30 Blood Culture - Preliminary
Blood/Venous No Growth in 72 hours- Final report to follow
01/27/24 04:26 Legionella Urinary Antigen - Pending
Urine Streptococcus pneumoniae Antigen (M - Pending
01/24/24 22:34 MRSA Screen - Final
Nose No Methicillin Resistant Staphylococcus aureus isolated.
01/24/24 06:00 Legionella Urinary Antigen - Final
Urine Negative for Legionella pneumophila Serogroup 1 antigen.
A negative result does not rule out the possiblity of
Legionella infection due to other serogroups or species of
Legionella. Clinical correlation is recommended.
Streptococcus pneumoniae Antigen (M - Final
Negative for Streptococcus pneumoniae antigen.
A negative result does not exclude infection with
Streptococcus pneumoniae. Clinical correlation is
recommended.
01/24/24 06:29 Influenza Types A & B (SUSHANT) - Final
Nasal Swab Negative for Influenza A & B, NAAT
Negative results must be combined with clinical observations
and patient history.
Nucleic Acid Amplification test (NAAT)performed on the
[employer] platform.
01/26/24 CXR: Similar appearance of the left mid/lower lung opacity which likely represents pneumonia.
01/24/24 CXR: LARGE DENSE LEFT LOWER LOBE and LINGULAR AIRSPACE CONSOLIDATION which has markedly increased since 01/21/2024. Diagnostic possibilities are (1) severe left lower lobe pneumonia or (2) severe atelectasis in the left lower lobe and
lingula secondary to endobronchial mucous plugging. New mild right to left mediastinal shift consistent with volume loss in the left lung. Mild cardiomegaly.
01/21/24 CT chest: The appearance, stability and multiplicity of the multiple tiny bilateral pulmonary nodules dating back to 02/06/2023 indicate that they are benign
--- NOTE | 2024-01-27 11:12 | PN.DE.MGMTRT ---
Insulin Management
- -
01/27/2024: Diabetes Management Consult
63-year-old female who presented w/cough and SOB, due to pneumonia/COPD/mucous plugs on 01/24/24. She had worsening respiratory distress and was transferred to the ICU on the evening of 01/23 and intubated on 01/25/2024 due to Acute respiratory
failure with hypoxia and hypercapnia.
PMH: COPD, Asthma, Schizophrenia and T2DM. Chart review indicates she was taking Metformin 1000mg BID, Farxiga 10mg daily, Lantus 15 units @ HS and Apidra 12 units AC. A1C 6.8%, Cr 1.3, eGFR 46.21
Pt critically ill, intubated and sedated, history unobtainable, no family at bedside. Information obtained from chart review.
Was started on IV Steroids and Tube feeds, contributing to hyperglycemia.
Glucose has trended up to 347, critical care glycemia protocol has been initiated.
Will follow and assess for readiness to transition off drip to sq insulin.
Diabetes History
- -
Type of Diabetes: 2 requiring insulin
Pre-Admission Diabetes Regimen
01/27/24
04:26
Creatinine 1.3 H
Lab Results
Hemoglobin A1c 6.8 % (4.0-5.6) H 01/25/24 06:17
Insulin Pump Settings
IP Diabetes Regimen
01/26/24 01/26/24 01/26/24
11:05 13:09 17:45
Glucose
POC Glucose 294 H 323 H 315 H
01/26/24 01/27/24 01/27/24
21:17 00:39 04:26
Glucose 347 H
POC Glucose 264 H 333 H
01/27/24 01/27/24 01/27/24
05:50 07:24 10:43
Glucose
POC Glucose 343 H 346 H 226 H
Patient Education
--- NOTE | 2024-01-27 11:57 | PTCARENOTE ---
patient reassessed. coarse breath sounds unchanged. patient tolerating rotation and percussion via sport bed. glycemic protocol initiated.
[2024-01-27 12:03] LABS: Glucose - Point of Care 219 mg/dl (70-99)
[2024-01-27] MEDS: FERRLECIT 110 MG IV (12:23)
[2024-01-27] MEDS: SUBLIMAZE 100 IV ×2 (13:00→23:15)
[2024-01-27 13:05] LABS: Glucose - Point of Care 190 mg/dl (70-99)
--- NOTE | 2024-01-27 13:15 | W.PN.HOSP.TC ---
Today's Communication/Plan
-
Monitor vital signs
see plan
Continue with antibiotics
Wean vent as tolerated
Wean sedation as tolerated
Lasix
Monitor oxygenation
Assessment / Plan
Assessment / Plan
Physical Exam
General: Sedated Obese
HEENT: Moist mucous membranes, Pinpoint pupils b/l
Respiratory: Intubated Ronchi on auscultation
Cardiac: S1/S2 Tachycardia; No Murmur
GI: Soft, some distension noted, decreased bowel sounds
Musculoskeletal: No Clubbing, No Cyanosis and No Edema
Neuro: Sedated but responsive to physical stimuli nonresponsive to verbal
A/P: Patient is a 63y F with PMH significant for schizophrenia, DM-II and COPD who presents to ED complaining of cough and SOB.
Acute on Chronic Hypoxemic Respiratory Insufficiency
Acute Respiratory Failure required intubation overnight 01/23-01/24
Wean vent as tolerated, vent management per customer assistance associate
Currently on propofol, fentanyl, wean sedation as tolerable
- Suspect multifactorial with components of LLL pneumonia vs atelectasis vs pulmonary edema
- Baseline chronic O2 supplementation 2L at home
LLL Pneumonia vs Atelectasis Mucus plugging
Septic Shock (fever leukocytosis requiring pressor support)
- CXR with dense opacity in the L base concerning for Pneumonia vs Atelectasis mucus plugging
- Pulm eval appreciated Diamox provided with subsequent improvement Metabolic Alkalosis
- ID eval appreciated cont Cefipime Doxycycline
- Supportive care including mucolytics, nebs, Chest PT VEST therapy if able or similar therapy as per ICU
-weaned off Levophed
Severe Iron deficiency Anemia
-monitor H&H
-IV iron supplementation
Acute on Chronic HFpEF
- Weight is increased from prior noted baseline per our records.
- BNP significantly elevated from prior as well.
- Monitor I/Os, daily weights
- ECHO appreciated EF 60-65% compared with prior ECHO Feb 2022 mild aortic stenosis new finding.
- Cardio Eval appreciated home oral Lasix resumed with improvement in pressures weaned off pressors
Mild AMBERLY vs CKD 3
Cr consistently 1.3 or close to
cont to monitor on diuresis as above
COPD without Acute Exacerbation
Acute Bronchitis
- No active wheezing appreciated on exam, but cough x 2 weeks and increased dyspnea.
- Continue inhaled corticosteroids, nebs
Aspiration precautions.
Eventual Speech evaluation (if patient amenable)
Schizoaffective Disorder
- Continue current psychotropic med regimen.
Benign Hypertension
�- Stable.� Continue home med regimen.
DM-II
Steroid induced hyperglycemia
�- Stable.� Continue outpatient Farxiga. Hold metformin acutely.
- Continue basal : bolus insulin regimen.
�- SSI coverage as needed.
- A1C 6.8
Sugars uncontrolled, started insulin drip. 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
Hypothyroidism
�- Continue home T4 supplementation.
Obesity due to excess calories and insulin resistance.
�- Affects all aspects of care.
�- Encourage healthy diet and increased activity with goal of weight loss.
DVT Prophylaxis:� Lovenox
Code Status:� Full
Total Critical Care Time__52___ minutes. I was immediately available to the patient and staff. I personally examined, reviewed labs, diagnostic images/reports, interpretations, treatment plans, discussed patient care with other providers and
family or caregivers (if patient is unable to make decisions), entered orders as appropriate and documented the medical record.
Anticipated Discharge: > 48 hours
Subjective/Interval History
-
Date of Service: January 27, 2024
intubated
Objective Data
-
Labs:
Laboratory Results
01/27/24 01/27/24
04:06 04:26
WBC 8.8
Hgb 9.3 L
Hct 27.9 L
Plt Count 178
HCO3 29.2 H
Sodium 143
Potassium 3.6
Chloride 102
Carbon Dioxide 27
BUN 63 H
Creatinine 1.3 H
Glucose 347 H
Calcium 8.6
Vital Signs:
Vital Signs
Temp Pulse Resp BP Pulse Ox
99.1 F 71 16 113/52 92
01/27/24 11:10 01/27/24 13:00 01/27/24 13:00 01/27/24 13:00 01/27/24 13:00
I&O
01/26/24 01/27/24 01/28/24
06:59 06:59 06:59
Intake Total 1348.0 / 1368.9 1782.6 / 1871.0 853.3 / 853.3
Output Total 1830 / 1830 2465 / 2465 835 / 835
Balance -482.0 / -461.1 -682.4 / -594.0 18.3 / 18.3
[2024-01-27 14:05] LABS: Glucose - Point of Care 199 mg/dl (70-99)
[2024-01-27 15:04] LABS: Glucose - Point of Care 198 mg/dl (70-99)
--- NOTE | 2024-01-27 15:10 | PTCARENOTE ---
patient reassessed. lungs with improvement in rhonchi, no wheezes. tolerating percussion and rotation. sedation per work list. remains on 80% fio2.
[2024-01-27] MEDS: HEPARIN 5000 UNITS SC ×2 (15:20→23:13)
--- NOTE | 2024-01-27 15:40 | CM ---
CM following re: discharge planning.
Discussed in Rounds, reviewed pt's chart, met with pt. Per Rounds meeting, pt remains intubated and sedated, moves all extremities, opens eyes, not following commands, restless with stimulation, continue supportive care.
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
D/C plan: Uncertain at this time and will depend on pt's progress.
CM will follow with discharge plan updates as hospitalization progresses
[2024-01-27 16:05] LABS: Glucose - Point of Care 170 mg/dl (70-99)
[2024-01-27 16:59] LABS: Glucose - Point of Care 159 mg/dl (70-99)
--- NOTE | 2024-01-27 17:47 | PTCARENOTE ---
patient pulse oximeter 88-90 on 75%, suctioned for scant amounts. breath sounds unchanged. RT updated. oxygen increased to 80%
[2024-01-27 17:58] LABS: Glucose - Point of Care 144 mg/dl (70-99)
[2024-01-27 18:54] LABS: Glucose - Point of Care 121 mg/dl (70-99)
--- NOTE | 2024-01-27 19:30 | PTCARENOTE ---
received report, dual bedside RN med rec, drowsy arousable to verbal, B/L wrist restraints, follows commands and denies pain, +cough, weak gag, pupils 2, NSR on the monitor, + pulses, +2 anasarca, B/L SCD's, #8 ETT 23 @ lip on L, AC 16/500/80/8 SpO2
92%, coarse throughout, OGT 68cm @ lip, TF Vital AF turned of for med requirement, round obese BSx4 hypoactive, thermistor dorman yellow output, sport bed percussion per order, L midline, 22G RFA, prop, 20mcg/10.9ml, fent 100mcg/10ml, insulin
5units/5ml, glycemic protocol, otherwise refer to documentation
[2024-01-27 20:03] LABS: Glucose - Point of Care 122 mg/dl (70-99)
[2024-01-27 21:03] LABS: Glucose - Point of Care 132 mg/dl (70-99)
[2024-01-27] MEDS: ZYPREXA 10 MG TUBE (21:15)
[2024-01-27] MEDS: KLONOPIN 1.5 MG TUBE (21:15)
[2024-01-27 22:08] LABS: Glucose - Point of Care 159 mg/dl (70-99)
[2024-01-27 23:07] LABS: Glucose - Point of Care 122 mg/dl (70-99)
--- NOTE | 2024-01-28 00:11 | W.PN.UPDATE ---
Update Note
Progress Note Update
Procedure Note: Arterial Line�
� Left Wrist Arrow 20 (05/12)�
Diagnosis:��PNA
IV Line Comments: Uneventful Procedure�
Naveen's test completed pre-procedure: Yes�
A-Line Comments: Sterile technique as per standard protocol, Ultrasound guided insertion�
Functioning A-line in situ: Yes�
A-line Insertion Start Time:��2330
A-line in at:��2345
--- NOTE | 2024-01-28 00:31 | PTCARENOTE ---
systems reviewed, TIRE CHANGER placed L radial arterial line, pt tolerated the procedure, no changes from previous assessment, otherwise refer to documentation
[2024-01-28 01:08] LABS: Glucose - Point of Care 98 mg/dl (70-99)
[2024-01-28 03:07] LABS: Glucose - Point of Care 176 mg/dl (70-99)
[2024-01-28 03:55] VITALS: BMI 35.4
[2024-01-28] MEDS: DIPRIVAN 100 IV ×3 (04:31→17:26)
[2024-01-28 05:06] LABS: Glucose - Point of Care 142 mg/dl (70-99)
[2024-01-28 05:07] LABS: B.E. 2.8 mmol/L; HCO3 27.2 mmol/L (21-28); Ionized Calcium 1.27 mMOL/L (1.15-1.33); O2 Saturation % 95.9 % (94-98); PCO2 40 mmHg (32-35); PO2 70 mmHg (83-108); Potassium 3.5 mMOL/L (3.5-5.1); Sodium 143 mMOL/L (136-145); pH 7.44 (7.35-7.45)
[2024-01-28 05:09] LABS: O2 Therapy 75%
[2024-01-28 05:45] LABS: Hematocrit 29.1 % (37.0-47.0); Hemoglobin 9.1 g/dL (12.0-16.0); Mean Corp Hgb Conc. 31.3 g/dL (33.0-37.0); Mean Corpuscular Hgb 33.7 pg (27.0-31.0); Mean Corpuscular Volume 107.8 fL (81.0-99.0); Mean Platelet Volume 10.5 fL (7.4-10.4); Platelet Count 214 10^3/uL (130-400); Red Cell Dist. Width 15.3 % (11.5-14.5); White Blood Cell Count 9.3 10^3/uL (4.8-10.8)
[2024-01-28 05:51] LABS: Blood Urea Nitrogen 66 mg/dl (7-17); Calcium 8.9 mg/dl (8.4-10.2); Carbon Dioxide 28 mmol/L (22-30); Chloride 107 mmol/L (98-107); Estimated Creatinine Clearance 62 ml/min; Glucose 142 mg/dl (70-99); Magnesium 2.8 mg/dl (1.6-2.3); Phosphorus 3.5 mg/dl (2.5-4.5); Potassium 3.9 mmol/L (3.5-5.1); Sodium 146 mmol/L (135-145); eGFR > 60.00
[2024-01-28 06:55] LABS: Glucose - Point of Care 161 mg/dl (70-99)
[2024-01-28] MEDS: DUONEB 3 ML INH ×4 (07:14→19:23)
[2024-01-28] MEDS: FLOVENT 110 MCG INHALER 4 PUFF INH ×2 (07:14→19:23)
--- NOTE | 2024-01-28 07:41 | W.PN.INTV ---
Today's Communication / Plan
Recommendations
Adjust ventilator
Wean FiO2
Check CT chest with PE
Consider bronchoscopy to remove mucous plug/atelectasis
Antibiotics
Insulin drip
Prognosis guarded
Assessment
-
63-year-old female with a history of underlying schizophrenia, diabetes, asthma, presented with cough and shortness of breath noted mucous plugs and pneumonia-pulmonary consulted for pneumonia/COPD/mucous plugs 01/24/24. She had worsening
respiratory distress and was transferred to the ICU on the evening of 01/23 and intubated on 01/25/2024.
Impression:
Acute respiratory failure with hypoxia + hypercapnia now on mechanical ventilation
(intubated 01/25/2024)
Extubated
Metabolic alkalosis due to chronic hypercapnia with CO2 now being acutely blown off s/p intubation
Left lower lobe pneumonia-nosocomial
Shock - due to sedation in setting of sepsis - shock state now resolved
Aspiration risk.
CHF-preserved EF with normal RV size and function
Mild aortic stenosis
Asthma with acute exacerbation due to pneumonia
Leukocytosis - now resolved
Anemia - stable
DM type II c/b hyperglycemia
AMBERLY (baseline Cr 0.8) - worsening
History of mild restrictive lung disease (post�bronchodilator FVC: 69% / 2.04 L via spirometry on 12/12/2020)
Conditions present prior to admission:
Bipolar.
Schizophrenia.
Borderline personality disorder
Diabetes.
Hypertension.
Hypothyroid.
Obesity.
COPD/asthma overlap.
CIELO on CPAP
Anemia.
GERD.
Chronic heart failure, preserved EF.
Appendectomy. Cholecystectomy
Plan
She continues to be critically ill sedated on a ventilator-difficulties oxygenating likely due to underlying COPD and pneumonia
Ventilator settings reviewed
Airway pressures reviewed and adequate
Wean FiO2 and then PEEP-reviewed with RN VASCULAR-Currently on 0.7/8 PEEP
ABG 01/28/2024--40/70/7 0.44
Chest x-ray 01/28/2024-left basilar opacification without change
VAP prevention protocol
DuoNebs continue
Yrmyvvpd-Omgd-Hlzhoc 40 mg IV every 12 hours-No change
If difficulties oxygenating then right side down to help with ventilation/perfusion matching
Bronchoscopy if mucous plugging
Mucolytic's
Check CT chest with PE protocol-unexplained hypoxemia, better assess left base-? Effusion, atelectasis or pneumonia
Continue diuresis as tolerated
Monitor renal function, electrolytes, intake/output, lower extremity edema and weight
Replace electrolytes as needed
Cardiology following-correspondence reviewed-signed off 01/25/2024
Cultures reviewed
Urine Legionella and streptococcal antigens negative
Sputum culture 01/25/2024-usual respiratory jennifer
MRSA screen negative
Influenza negative
Blood cultures no growth
Empiric antibiotics
Infectious disease following-correspondence reviewed
Follow leukocytosis
Follow hemoglobin and platelet count
Transfuse as needed
Monitor blood sugar
Insulin drip
Diabetic nurse practitioner -Following-correspondence reviewed
DVT prophylaxis-on Lovenox.
GI prophylaxis-on pantoprazole while on the ventilator
Nutrition - continue tube feeds
Bedside range of motion, eventual physical therapy
Critical care statement: A total of 50 minutes of critical care time was provided for this patient today. This includes management of unstable vital signs, evaluation of the patient at bedside, reviewing the patient's pertinent medical records
including radiographs, ventilator management, pressor management, microbiology, laboratory evaluations, and discussion with primary team, consultants, pharmacy, nutrition, physical therapy, case management, charge nurse, critical care nursing, and
respiratory therapy.
Studies:
CT chest 01/21/24-multiple pulmonary nodules stable dating back to 02/06/23-over 10 nodules, less than 2 mm
Chest x-ray 01/24/24-large dense lower lobe and lingular airspace disease consistent with pneumonia
CXR 01/25/2024:
Endotracheal tube tip projects in mid thoracic trachea. Nasoenteric tube courses below the diaphragm, tip is excluded by collimation.
Unchanged left mid/lower lung opacity which may represent pneumonia.
Subjective Dataa
Subjective Data
Date of Service:
Date of Service: January 28, 2024
Chief Complaint: Mold Shaker Follow Up and Pulmonary Follow Up
Subjective:
Sedated on the ventilator, no increased secretions, FiO2 only weaned to 0.7, review systems unobtainable
Review of Systems
General: Unobtainable - Sedation
Objective Data
Data Reviewed
Vital Signs / I&O / Oxygen:
Vital Signs
Temp Pulse Resp BP Pulse Ox
99.9 F 69 16 124/60 94
01/28/24 07:30 01/28/24 07:15 01/28/24 07:15 01/27/24 23:43 01/28/24 07:19
Intake and Output
01/27/24 01/28/24 01/29/24
06:59 06:59 06:59
Intake Total 1782.6 / 1871.0 2545.4 / 2545.4
Output Total 2465 / 2465 1815 / 1815
Balance -682.4 / -594.0 730.4 / 730.4
SaO2 [A/C] 90
SaO2 94
Nasal Cannula flow liters per 50
minute
Physical Exam
General: Respiratory Distress (negative), Comfortable, Chills (negative) and Sweats (negative)
HEENT: Normocephalic, Anicteric and Other (ETT in place)
Cardiovascular: Regular Rhythm and Peripheral Edema (Trace lower extremity edema bilaterally)
Respiratory: Wheeze (negative), Crackles (Left base), Rhonchi (Left hemithorax) and ET Tube (Mechanical breath sounds heard bilaterally)
GI: Soft, Distended (Abdominal obesity), Non Tender and Normal Bowel Sounds
Neurology: Awake and Other (Pupils 2 mm bilaterally and sluggish)
Skin: Warm, Good Color, Cyanosis (negative), Jaundice (negative) and Rash (n)
Labs/Micro/Reports
Lab Data
01/28/24 04:57
01/28/24 04:57
Laboratory Results
01/28/24
04:57
pH 7.44
pCO2 40 H
pO2 70 L
HCO3 27.2
O2 Delivery Level 75%
Microbiology
01/24/24 05:30 Blood/Venous Blood Culture - Preliminary
No Growth in 4 days- Final report to follow
01/25/24 08:34 Endotracheal Respiratory Culture - Final
Usual Respiratory Jennifer
01/25/24 08:34 Endotracheal Gram Stain - Final
01/24/24 22:34 Nose MRSA Screen - Final
No Methicillin Resistant Staphylococcus aureus isolated.
[2024-01-28 07:46] LABS: Absolute Neutrophils -Man Diff 5.2 10^3/uL (1.4-6.5); Anisocytosis 1+; Band Neutrophils 7 % (0-3); Lymphocytes 23 % (20-51); Metamyelocytes 5 % (-); Monocytes 12 % (2-9); Myelocytes 3 % (-); Normal RBC Morphology No; Platelets Checked Yes; Segmented Neutrophils 49 % (42-75)
[2024-01-28 07:47] LABS: Hypochromasia 1+; Polychromasia 1+; Total Cells Counted 100
[2024-01-28] MEDS: VALTREX 500 MG TUBE (08:03)
[2024-01-28] MEDS: PROZAC 20 MG TUBE (08:03)
[2024-01-28] MEDS: PREVACID 30 MG TUBE (08:03)
[2024-01-28] MEDS: VIBRAMYCIN 100 MG TUBE ×2 (08:03→20:18)
[2024-01-28] MEDS: SOLU-MEDROL PF 40 MG IV ×2 (08:03→20:18)
[2024-01-28] MEDS: ROBITUSSIN 200 MG PO ×3 (08:03→21:15)
[2024-01-28] MEDS: MIRALAX 17 GRAMS TUBE (08:04)
[2024-01-28] MEDS: ZETIA 10 MG TUBE (08:04)
[2024-01-28] MEDS: SYNTHROID 75 MCG TUBE (08:04)
[2024-01-28] MEDS: COLACE LIQUID 100 MG TUBE ×2 (08:04→20:17)
[2024-01-28] MEDS: DEPAKENE 500 MG TUBE ×3 (08:04→21:15)
[2024-01-28] MEDS: HEPARIN 5000 UNITS SC ×3 (08:05→23:29)
[2024-01-28] MEDS: MAXIPIME 2000 MG IV ×3 (08:05→23:29)
[2024-01-28] MEDS: LASIX 40 MG PO (08:05)
[2024-01-28] MEDS: STERILE WATER FOR INJECTION 10 ML IV ×3 (08:05→23:29)
[2024-01-28 08:11] LABS: Glucose - Point of Care 136 mg/dl (70-99)
[2024-01-28 08:22] VITALS: BP 102/38
[2024-01-28] MEDS: SUBLIMAZE 50 MCG IV ×3 (08:24→14:26)
--- NOTE | 2024-01-28 08:43 | PTOTSP ---
Reviewed chart. Pt remains on ventilator in ICU. Will need new orders for PT and OT when stable to begin PT activity.
--- NOTE | 2024-01-28 08:56 | PN.CDI ---
CDI
- -
CDI:
Physician Documentation Request
Admit Date: 01/24/24 06:43
Dear Doctor Fracisco,
01/26 Facility Planner PN: 'Acute respiratory failure with hypoxia + hypercapnia now on mechanical ventilation'
01/26 Hospitalist PN: 'Acute on Chronic Hypoxemic Respiratory Insufficiency, Acute Respiratory Failure required intubation overnight 01/23-01/24'
Selected Entries
01/25/24
20:00 01/26/24
19:23 01/27/24
08:00
% Oxygen delivered 70 80 100
01/27/24
11:10 01/27/24
16:05 01/27/24
20:20
% Oxygen delivered 80 75 80
Clarify which of the following accurately represents the patient's respiratory status:
Acute hypoxic respiratory failure
Hypoxia
Other
Additional information for Respiratory Failure:
Recognized criteria for Respiratory Failure (Source: [facility]ARY[facility] Hospitalist Jan 2013)
ABGs: (1 or more) Symptoms Please indicate type if known
1. p)2 <60 or RA SPO2 <91% on RA 1. Tachypnea, SOB, dyspnea Hypoxic
2. pCO2 50 and pH <7.35 2. Use of accessory muscles Hypercapnic
3. pO2 decrease of pCO2 increase by 3. Pallor or cyanosis Hypoxic and Hypercapnic
10 mmHg from baseline if known 4. Anxiety or restlessness Unable to determine
5. Unable to speak in full sentences
Supplemental O2 of > 40% (5LPM) Intubation is not required
Use of terms such as suspected, likely, concern for, or probable (associated with a specific diagnosis that is being evaluated, monitored, or treated as if it exists) are acceptable and can be coded in the inpatient setting, when documented at the
time of discharge.
Thank you,
Nat iZmmer RN, BSN
CDI Specialist
Available via [place] text
Please use your independent medical judgment in providing your response.
--- NOTE | 2024-01-28 08:56 | PTCARENOTE ---
report received, assessments per work list. patient with increased nonverbal pain cues. follwos commands, medicated with fentanyl per prn order. insulin, Propofol, fentanyl per Work list. monitor nsr, left radial arterial line with good blood
return, left midline patent for infusions. +2 anasarca. ett to vent, lungs with tubular breath sounds bilaterally. increased oral secretions. tolerting percussion and rotation. Del Castillo draining lay urine. ogt placement verified. tube feeds on hold
per medication requirements. wrist restraints maintained for patient safety
[2024-01-28 09:04] LABS: Glucose - Point of Care 138 mg/dl (70-99)
--- NOTE | 2024-01-28 09:05 | PN.CDI ---
CDI
- -
CDI:
Physician Documentation Request
Admit Date: 01/24/24 06:43
Dear Doctor Fracisco,
ER Physician Documentation: 'She is typically on 2 L. When he found that she was in the low 80s. They increased her oxygen to 4 L and she began to sat in the low 90s.'
01/26 [employer] PN: 'Acute respiratory failure with hypoxia + hypercapnia now on mechanical ventilation'
01/26 Hospitalist PN: 'Acute on Chronic Hypoxemic Respiratory Insufficiency, Acute Respiratory Failure required intubation overnight 01/23-01/24'
Selected Entries
01/25/24
20:00 01/26/24
19:23 01/27/24
08:00
% Oxygen delivered 70 80 100
01/27/24
11:10 01/27/24
16:05 01/27/24
20:20
% Oxygen delivered 80 75 80
Clarify which of the following accurately represents the patient's respiratory status:
Acute hypoxic respiratory failure
Acute on chronic hypoxic respiratory failure
Acute on Chronic Hypoxemic Respiratory Insufficiency
Other
Additional information for Respiratory Failure:
Recognized criteria for Respiratory Failure (Source: MARYAM Hospitalist Jan 2013)
ABGs: (1 or more) Symptoms Please indicate type if known
1. p)2 <60 or RA SPO2 <91% on RA 1. Tachypnea, SOB, dyspnea Hypoxic
2. pCO2 50 and pH <7.35 2. Use of accessory muscles Hypercapnic
3. pO2 decrease of pCO2 increase by 3. Pallor or cyanosis Hypoxic and Hypercapnic
10 mmHg from baseline if known 4. Anxiety or restlessness Unable to determine
5. Unable to speak in full sentences
Supplemental O2 of > 40% (5LPM) Intubation is not required
Use of terms such as suspected, likely, concern for, or probable (associated with a specific diagnosis that is being evaluated, monitored, or treated as if it exists) are acceptable and can be coded in the inpatient setting, when documented at the
time of discharge.
Thank you,
Nat Zimmer RN, BSN
CDI Specialist
Available via [place] text
Please use your independent medical judgment in providing your response.
--- NOTE | 2024-01-28 09:11 | PN.CDI ---
CDI
- -
CDI:
Physician Documentation Request
Admit Date: 01/24/24 06:43
Dear Doctor Fracisco,
01/24 Cardiology PN: 'HFpEF - chronic - appears euvolemic now - goal for even volume management'
01/26 Hospitalist PN: 'Acute on Chronic HFpEF - Weight is increased from prior noted baseline per our records. - BNP significantly elevated from prior as well.'
Clarify which of the following accurately represents the acuity of the HFpEF. Possible options might include:
____ Acute
____ Acute on Chronic
____ Other
Use of terms such as suspected, likely, concern for, or probable (associated with a specific diagnosis that is being evaluated, monitored, or treated as if it exists) are acceptable and can be coded in the inpatient setting, when documented at the
time of discharge.
Thank you,
Nat Zimmer RN, BSN
CDI Specialist
Available via [place] text
Please use your independent medical judgment in providing your response.
--- NOTE | 2024-01-28 09:30 | PN.DE.MGMTRT ---
Insulin Management
- -
01/28/2024: Diabetes Management Consult Follow up
63-year-old female who presented w/cough and SOB, due to pneumonia/COPD/mucous plugs on 01/24/24. She had worsening respiratory distress and was transferred to the ICU on the evening of 01/23 and intubated on 01/25/2024 due to Acute respiratory
failure with hypoxia and hypercapnia.
PMH: COPD, Asthma, Schizophrenia and T2DM. Chart review indicates she was taking Metformin 1000mg BID, Farxiga 10mg daily, Lantus 15 units @ HS and Apidra 12 units AC. A1C 6.8%, Cr 1.3, eGFR 46.21
Pt critically ill, intubated and sedated, history unobtainable, no family at bedside. Information obtained from chart review and patient nurse.
Was started on IV Steroids and Tube feeds, contributing to hyperglycemia.
01/26 Glucose trended up to 347, critical care glycemia protocol has been initiated, range of 4.5 to 8 units per hour.
01/27 CR 1, eGFR > 60, Patient remains critically ill, tube feeds currently on HOLD Patient for CT scan. Will continue glycemic protocol at this time.
Will follow and assess for readiness to transition off drip to sq insulin. Discussed with patient nurse.
Diabetes History
- -
Type of Diabetes: 2 requiring insulin
Pre-Admission Diabetes Regimen
01/28/24
04:57
Creatinine 1.0
Lab Results
Hemoglobin A1c 6.8 % (4.0-5.6) H 01/25/24 06:17
Insulin Pump Settings
IP Diabetes Regimen
01/27/24 01/27/24 01/27/24
10:43 11:48 12:54
Glucose
POC Glucose 226 H 219 H 190 H
01/27/24 01/27/24 01/27/24
13:54 14:53 15:53
Glucose
POC Glucose 199 H 198 H 170 H
01/27/24 01/27/24 01/27/24
16:48 17:46 18:43
Glucose
POC Glucose 159 H 144 H 121 H
01/27/24 01/27/24 01/27/24
19:52 20:52 21:56
Glucose
POC Glucose 122 H 132 H 159 H
01/27/24 01/28/24 01/28/24
22:56 00:56 02:56
Glucose
POC Glucose 122 H 98 176 H
01/28/24 01/28/24 01/28/24
04:54 04:57 06:44
Glucose 142 H
POC Glucose 142 H 161 H
01/28/24 01/28/24
07:57 08:53
Glucose
POC Glucose 136 H 138 H
Patient Education
--- NOTE | 2024-01-28 09:52 | W.PN.ID1 ---
Date of Service
Date of Service: January 28, 2024
Today's Communication
Continue cefepime and doxycycline.
Assessment / Plan
# LLL pneumonia
# Mucous plugging
# Acute on chronic hypoxemic respiratory failure, VDRF/intubated
# Fever - resolved
# Leukocytosis - resolved
# COPD on home 2LO2 (never smoked)
- CT chest neg PNA 3 days prior to admission
-bcx's neg to date
- urine legionella and pneumococcal antigen negative x 2
- sputum cx: usual respiratory jennifer
- MRSA screen negative
- Continue cefepime and doxycycline (d5).
- Follow clinically and oxygen status
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
Schizophrenia
Diabetes mellitus
COPD on 2L02
Pulmonary nodules
Hypertension
Hypothyroidism
Heart failure with preserved EF
BMI 36
Appendectomy
Cholecystectomy
Chief Complaint
-: Pneumonia
Subjective / Review of Systems
remains om vent
Vital Signs / Physical Exam
Vital Signs
Vital Signs
Temp Pulse Resp BP Pulse Ox
99.9 F 76 16 106/45 91
01/28/24 07:30 01/28/24 08:05 01/28/24 07:15 01/28/24 08:05 01/28/24 08:30
Physical Exam
Constitutional: Comfortable
Cardiovascular: Regular Rate and S1/S2
Pulmonary: Clear (anteriorly)
Gastrointestinal: Soft, Non Tender and Non Distended
Genito-Urinary: [place] and Clear Urine
Extremities: Edema
Objective Data
Lab Data
Lab Results
01/28/24 04:57
01/28/24 04:57
PT 14.8 Sec (11.4-14.6) H 01/24/24 04:57
INR 1.11 01/24/24 04:57
APTT 30.8 Sec (23.4-35.0) 01/24/24 04:57
Estimated Creat Clear 62 ml/min 01/28/24 04:57
Lactic Acid Cancelled 01/26/24 06:00
Total Bilirubin Cancelled 01/24/24 04:57
AST Cancelled 01/24/24 04:57
ALT Cancelled 01/24/24 04:57
Alkaline Phosphatase Cancelled 01/24/24 04:57
Most recent labs reviewed.
Micro Results:
01/27/24 04:26 Legionella Urinary Antigen - Final
Urine Negative for Legionella pneumophila Serogroup 1 antigen.
A negative result does not rule out the possiblity of
Legionella infection due to other serogroups or species of
Legionella. Clinical correlation is recommended.
Streptococcus pneumoniae Antigen (M - Final
Negative for Streptococcus pneumoniae antigen.
A negative result does not exclude infection with
Streptococcus pneumoniae. Clinical correlation is
recommended.
01/24/24 05:30 Blood Culture - Preliminary
Blood/Venous No Growth in 4 days- Final report to follow
01/25/24 08:34 Respiratory Culture - Final
Endotracheal Usual Respiratory Jennifer
Gram Stain - Final
01/24/24 22:34 MRSA Screen - Final
Nose No Methicillin Resistant Staphylococcus aureus isolated.
01/24/24 06:00 Legionella Urinary Antigen - Final
Urine Negative for Legionella pneumophila Serogroup 1 antigen.
A negative result does not rule out the possiblity of
Legionella infection due to other serogroups or species of
Legionella. Clinical correlation is recommended.
Streptococcus pneumoniae Antigen (M - Final
Negative for Streptococcus pneumoniae antigen.
A negative result does not exclude infection with
Streptococcus pneumoniae. Clinical correlation is
recommended.
01/24/24 06:29 Influenza Types A & B (SUSHANT) - Final
Nasal Swab Negative for Influenza A & B, NAAT
Negative results must be combined with clinical observations
and patient history.
Nucleic Acid Amplification test (NAAT)performed on the
TIKI.VN platform.
01/26/24 CXR: Similar appearance of the left mid/lower lung opacity which likely represents pneumonia.
01/24/24 CXR: LARGE DENSE LEFT LOWER LOBE and LINGULAR AIRSPACE CONSOLIDATION which has markedly increased since 01/21/2024. Diagnostic possibilities are (1) severe left lower lobe pneumonia or (2) severe atelectasis in the left lower lobe and
lingula secondary to endobronchial mucous plugging. New mild right to left mediastinal shift consistent with volume loss in the left lung. Mild cardiomegaly.
01/21/24 CT chest: The appearance, stability and multiplicity of the multiple tiny bilateral pulmonary nodules dating back to 02/06/2023 indicate that they are benign
[2024-01-28 10:07] LABS: Glucose - Point of Care 123 mg/dl (70-99)
--- NOTE | 2024-01-28 10:32 | PTCARENOTE ---
continues to have pulse oximeter 80's. oxygen titration per RT. rotation setting changed to rotate to right 70% to keep left lung up. for CT scan, tube feeds on hold for CT scan
[2024-01-28] MEDS: SUBLIMAZE 100 IV ×2 (10:54→23:30)
[2024-01-28 11:01] LABS: Glucose - Point of Care 159 mg/dl (70-99)
--- NOTE | 2024-01-28 11:05 | W.PN.INTV ---
Today's Communication / Plan
Recommendations
*TODAY*
Continue Sedation/Mechanical ventilation
Continue Chest Pt / Conservative/Supportive respiratory measure
Wing Off FiO2
Possible Bronchoscopy tomorrow
Persistent L-Basilar Opacification On CXR Today (Atelectasis VS. Pneumonia)
With newly associated ipsilateral Effusion
CTA Today
Assessment
-
63-year-old female with a history of underlying schizophrenia, diabetes, asthma, presented with cough and shortness of breath noted mucous plugs and pneumonia-pulmonary consulted for pneumonia/COPD/mucous plugs 01/24/24. She had worsening
respiratory distress and was transferred to the ICU on the evening of 01/23 and intubated on 01/25/2024.
Impression:
Acute respiratory failure with hypoxia + hypercapnia now on mechanical ventilation
(intubated 01/25/2024)
Extubated
Metabolic alkalosis due to chronic hypercapnia with CO2 now being acutely blown off s/p intubation
Left lower lobe pneumonia-nosocomial
Shock - due to sedation in setting of sepsis - shock state now resolved
Aspiration risk.
CHF-preserved EF with normal RV size and function
Mild aortic stenosis
Asthma with acute exacerbation due to pneumonia
Leukocytosis - now resolved
Anemia - stable
DM type II c/b hyperglycemia
AMBERLY (baseline Cr 0.8) - worsening
History of mild restrictive lung disease (post�bronchodilator FVC: 69% / 2.04 L via spirometry on 12/12/2020)
Conditions present prior to admission:
Bipolar.
Schizophrenia.
Borderline personality disorder
Diabetes.
Hypertension.
Hypothyroid.
Obesity.
COPD/asthma overlap.
CIELO on CPAP
Anemia.
GERD.
Chronic heart failure, preserved EF.
Appendectomy. Cholecystectomy
Plan
She continues to be critically ill sedated on a ventilator-difficulties oxygenating likely due to underlying COPD and pneumonia
Ventilator settings reviewed
Airway pressures reviewed and adequate
Wean FiO2 and then PEEP-reviewed with PAN WASHER-Currently on 0.7/8 PEEP
ABG 01/28/2024--40/70/7 0.44
Chest x-ray 01/28/2024-left basilar opacification without change
VAP prevention protocol
DuoNebs continue
Opasgvto-Znjd-[place] 40 mg IV every 12 hours-No change
If difficulties oxygenating then right side down to help with ventilation/perfusion matching
Bronchoscopy if mucous plugging
Mucolytic's
Check CT chest with PE protocol-unexplained hypoxemia, better assess left base-? Effusion, atelectasis or pneumonia
Continue diuresis as tolerated
Monitor renal function, electrolytes, intake/output, lower extremity edema and weight
Replace electrolytes as needed
Cardiology following-correspondence reviewed-signed off 01/25/2024
Cultures reviewed
Urine Legionella and streptococcal antigens negative
Sputum culture 01/25/2024-usual respiratory jennifer
MRSA screen negative
Influenza negative
Blood cultures no growth
Empiric antibiotics
Infectious disease following-correspondence reviewed
Follow leukocytosis
Follow hemoglobin and platelet count
Transfuse as needed
Monitor blood sugar
Insulin drip
Diabetic nurse practitioner -Following-correspondence reviewed
DVT prophylaxis-on Lovenox.
GI prophylaxis-on pantoprazole while on the ventilator
Nutrition - continue tube feeds
Bedside range of motion, eventual physical therapy
Critical care statement: A total of 50 minutes of critical care time was provided for this patient today. This includes management of unstable vital signs, evaluation of the patient at bedside, reviewing the patient's pertinent medical records
including radiographs, ventilator management, pressor management, microbiology, laboratory evaluations, and discussion with primary team, consultants, pharmacy, nutrition, physical therapy, case management, charge nurse, critical care nursing, and
respiratory therapy.
Studies:
CT chest 01/21/24-multiple pulmonary nodules stable dating back to 02/06/23-over 10 nodules, less than 2 mm
Chest x-ray 01/24/24-large dense lower lobe and lingular airspace disease consistent with pneumonia
CXR 01/25/2024:
Endotracheal tube tip projects in mid thoracic trachea. Nasoenteric tube courses below the diaphragm, tip is excluded by collimation.
Unchanged left mid/lower lung opacity which may represent pneumonia.
Subjective Dataa
Subjective Data
Date of Service:
Date of Service: January 28, 2024
Patient was seen and evaluated at bedside this morning with the attending physician and the ICU team, during morning rounds.
TODAY
In NAD / Currently sedated /on mechanical ventilation
Saturating Well
Hemodynamically stable
No Acute O/N reported
Persistent L-Basilar Opacification On CXR Today (Atelectasis VS. Pneumonia)
With newly associated ipsilateral Effusion
CTA Today
Chief Complaint: Jboss Developer Follow Up and Pulmonary Follow Up
Objective Data
Data Reviewed
Vital Signs / I&O / Oxygen:
Vital Signs
Temp Pulse Resp BP Pulse Ox
37.7 C 72 17 102/38 94
01/28/24 07:30 01/28/24 10:30 01/28/24 10:30 01/28/24 08:22 01/28/24 10:30
Intake and Output
01/27/24 01/28/24 01/29/24
06:59 06:59 06:59
Intake Total 1782.6 / 1871.0 2545.4 / 2648.3 494.1 / 494.1
Output Total 2465 / 2465 1815 / 1815 275 / 275
Balance -682.4 / -594.0 730.4 / 833.3 219.1 / 219.1
SaO2 [A/C] 91
SaO2 94
Nasal Cannula flow liters per 50
minute
Physical Exam
General: Respiratory Distress (negative), Comfortable, Chills (negative) and Sweats (negative)
HEENT: Normocephalic, Anicteric and Other (ETT in place)
Cardiovascular: Regular Rhythm and Peripheral Edema (Trace lower extremity edema bilaterally)
Respiratory: Wheeze (negative), Crackles (Left base), Rhonchi (Left hemithorax) and ET Tube (Mechanical breath sounds heard bilaterally)
GI: Soft, Distended (Abdominal obesity), Non Tender and Normal Bowel Sounds
Neurology: Awake and Other (Pupils 2 mm bilaterally and sluggish)
Skin: Warm, Good Color, Cyanosis (negative), Jaundice (negative) and Rash (n)
Labs/Micro/Reports
Lab Data
01/28/24 04:57
01/28/24 04:57
Laboratory Results
01/28/24
04:57
pH 7.44
pCO2 40 H
pO2 70 L
HCO3 27.2
O2 Delivery Level 75%
Microbiology
01/27/24 04:26 Urine Legionella Urinary Antigen - Final
Negative for Legionella pneumophila Serogroup 1 antigen.
A negative result does not rule out the possiblity of
Legionella infection due to other serogroups or species of
Legionella. Clinical correlation is recommended.
01/27/24 04:26 Urine Streptococcus pneumoniae Antigen (M - Final
Negative for Streptococcus pneumoniae antigen.
A negative result does not exclude infection with
Streptococcus pneumoniae. Clinical correlation is
recommended.
01/24/24 05:30 Blood/Venous Blood Culture - Preliminary
No Growth in 4 days- Final report to follow
01/25/24 08:34 Endotracheal Respiratory Culture - Final
Usual Respiratory Jennifer
01/25/24 08:34 Endotracheal Gram Stain - Final
01/24/24 22:34 Nose MRSA Screen - Final
No Methicillin Resistant Staphylococcus aureus isolated.
[2024-01-28] MEDS: FERRLECIT 110 MG IV (11:52)
[2024-01-28 12:00] LABS: Glucose - Point of Care 132 mg/dl (70-99)
--- NOTE | 2024-01-28 12:11 | PTCARENOTE ---
reassessed, oxygen@100%. suctions for minimal secretions. glycemic insulin per work list.
[2024-01-28] MEDS: ROBITUSSIN PO (12:43)
--- NOTE | 2024-01-28 12:57 | W.PN.HOSP.TC ---
Today's Communication/Plan
-
Monitor vital signs
see plan
CT chest
Wean vent as tolerated, currently requiring high FiO2
Plan for bronchoscopy possibly tomorrow
Continue with chest PT
wean sedation as tolerated
Assessment / Plan
Assessment / Plan
Physical Exam
General: Sedated Obese
HEENT: Moist mucous membranes, Pinpoint pupils b/l
Respiratory: Intubated Ronchi on auscultation
Cardiac: S1/S2 Tachycardia; No Murmur
GI: Soft, some distension noted, decreased bowel sounds
Musculoskeletal: No Clubbing, No Cyanosis and No Edema
Neuro: Sedated but responsive to physical stimuli nonresponsive to verbal
A/P: Patient is a 63y F with PMH significant for schizophrenia, DM-II and COPD who presents to ED complaining of cough and SOB.
Acute on Chronic Hypoxemic Respiratory failure
required intubation overnight 01/23-01/24
Wean vent as tolerated, vent management per hat cone inspector. Currently has high oxygen requirements. Plan for possible bronchoscopy 01/28. Persistent opacification
Currently on propofol, fentanyl, wean sedation as tolerable
- Suspect multifactorial with components of LLL pneumonia vs atelectasis vs pulmonary edema
- Baseline chronic O2 supplementation 2L at home
CT chest pe pending
LLL Pneumonia vs Atelectasis Mucus plugging
Septic Shock (fever leukocytosis requiring pressor support)
- CXR with dense opacity in the L base concerning for Pneumonia vs Atelectasis mucus plugging
- Pulm eval appreciated Diamox provided with subsequent improvement Metabolic Alkalosis
- ID eval appreciated cont Cefipime Doxycycline
- Supportive care including mucolytics, nebs, Chest PT
-weaned off Levophed
Hyponatremia
monitor
Severe Iron deficiency Anemia
-monitor H&H
-IV iron supplementation
Acute on Chronic HFpEF on admission; now appears euvolemic
- Weight is increased from prior noted baseline per our records.
- BNP significantly elevated from prior as well.
- Monitor I/Os, daily weights
- ECHO appreciated EF 60-65% compared with prior ECHO Feb 2022 mild aortic stenosis new finding.
- Cardio Eval appreciated home oral Lasix resumed with improvement in pressures weaned off pressors
Mild AMBERLY
imrpoving
cont to monitor on diuresis as above
COPD without Acute Exacerbation
Aspiration precautions.
Eventual Speech evaluation (if patient amenable); currently intubated
Schizoaffective Disorder
- Continue current psychotropic med regimen.
Benign Hypertension
�- Stable.� Continue home med regimen.
DM-II
Steroid induced hyperglycemia
�- Stable.� Continue outpatient Farxiga. Hold metformin acutely.
- Continue basal : bolus insulin regimen.
�- SSI coverage as needed.
- A1C 6.8
Sugars uncontrolled, started insulin drip. Diabetes LEAD BLENDER following
Hypothyroidism
�- Continue home T4 supplementation.
Obesity due to excess calories and insulin resistance.
�- Affects all aspects of care.
�- Encourage healthy diet and increased activity with goal of weight loss.
DVT Prophylaxis:� Lovenox
Code Status:� Full
I spent a total of 53 minutes with the patient or on the floor. More than 50% of this time involved counseling and coordination of care.
Anticipated Discharge: > 48 hours
Subjective/Interval History
-
Date of Service: January 28, 2024
continues to be intubated
Objective Data
-
Labs:
Laboratory Results
01/28/24
04:57
WBC 9.3
Hgb 9.1 L
Hct 29.1 L
Plt Count 214 D
HCO3 27.2
Sodium 146 H
Potassium 3.9
Chloride 107
Carbon Dioxide 28
BUN 66 H
Creatinine 1.0
Glucose 142 H
Calcium 8.9
Vital Signs:
Vital Signs
Temp Pulse Resp BP Pulse Ox
100.0 F 68 16 102/38 94
01/28/24 11:40 01/28/24 11:22 01/28/24 11:22 01/28/24 08:22 01/28/24 12:00
I&O
01/27/24 01/28/24 01/29/24
06:59 06:59 06:59
Intake Total 1782.6 / 1871.0 2545.4 / 2648.3 578.4 / 578.4
Output Total 2465 / 2465 1815 / 1815 525 / 525
Balance -682.4 / -594.0 730.4 / 833.3 53.4 / 53.4
[2024-01-28 13:07] LABS: Glucose - Point of Care 151 mg/dl (70-99)
[2024-01-28 14:33] LABS: Glucose - Point of Care 164 mg/dl (70-99)
--- NOTE | 2024-01-28 14:56 | PTCARENOTE ---
patient taken and returned from CT scan. patient very agitated upon arrival back to unit. attempting to get out of bed, pull out ETT. fentanyl bolus given, propofol adjustment per work list. effective. tube feeds resumed.
--- NOTE | 2024-01-28 15:03 | CM ---
CM following re: discharge planning.
Discussed in Rounds, reviewed pt's chart, met with pt. Per Rounds meeting, pt remains intubated and sedated, moves all extremities, opens eyes, follows commands, continue supportive care.
Per CM note, Patient lives at 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
D/C plan: Uncertain at this time and will depend on pt's progress.
CM will follow with discharge plan updates as hospitalization progresses
[2024-01-28] MEDS: NOVOLIN R INSULIN INFUSION 100 IV (15:31)
[2024-01-28 15:41] LABS: Glucose - Point of Care 160 mg/dl (70-99)
--- NOTE | 2024-01-28 16:37 | PTCARENOTE ---
reassessed. oxygen wean per RT. no changes. tube feeds resumed
[2024-01-28 16:44] LABS: Glucose - Point of Care 193 mg/dl (70-99)
[2024-01-28 17:40] LABS: Glucose - Point of Care 195 mg/dl (70-99)
[2024-01-28 18:47] LABS: Glucose - Point of Care 145 mg/dl (70-99)
--- NOTE | 2024-01-28 19:30 | PTCARENOTE ---
received report, dual bedside RN med rec, drowsy arousable to verbal, B/L wrist restraints, not following commands but ALEGRIA, +cough, weak gag, pupils 2, NSR on the monitor, + pulses, +2 anasarca, B/L SCD's, #8 ETT 23 @ lip on L, AC 16/450/75/8 SpO2
95%, coarse throughout, OGT 68cm @ lip, TF Vital AF turned of for med requirement, round obese BSx4 hyperactive, thermistor dorman yellow output, sport bed percussion per order, L radial A-line correlated to cuff, L midline, 22G RFA, prop,
25mcg/13.9ml, fent 100mcg/10ml, insulin gtt, glycemic protocol, otherwise refer to documentation
[2024-01-28 19:39] VITALS: BP 111/51
[2024-01-28 19:51] LABS: Glucose - Point of Care 119 mg/dl (70-99)
[2024-01-28 20:39] VITALS: BP 118/46
[2024-01-28 21:01] LABS: Glucose - Point of Care 173 mg/dl (70-99)
[2024-01-28] MEDS: KLONOPIN 1.5 MG TUBE (21:15)
[2024-01-28] MEDS: ZYPREXA 10 MG TUBE (21:15)
[2024-01-28 21:21] VITALS: BP 114/50
[2024-01-28 22:12] LABS: Glucose - Point of Care 186 mg/dl (70-99)
[2024-01-28 23:08] LABS: Glucose - Point of Care 166 mg/dl (70-99)
[2024-01-28] MEDS: OFIRMEV 100 IV (23:28)
[2024-01-29 00:07] LABS: Glucose - Point of Care 160 mg/dl (70-99)
[2024-01-29] MEDS: DIPRIVAN 100 IV ×4 (00:30→22:00)
--- NOTE | 2024-01-29 00:30 | PTCARENOTE ---
systems reviewed, temp 100.5 SECONDARY SCHOOL TEACHER LIBRARIAN notified, Ofirmev ordered and given, RFA IV infiltrated, 20G RAC placed, otherwise refer to documentation
[2024-01-29 02:12] LABS: Glucose - Point of Care 206 mg/dl (70-99)
[2024-01-29 03:10] LABS: Glucose - Point of Care 182 mg/dl (70-99)
--- NOTE | 2024-01-29 03:26 | PTCARENOTE ---
systems reviewed, pt continued to be febrile 101.2 after Ofirmev, CERTIFIED JUVENILE PROBATION OFFICER notified cooling blanket ordered, CHG bath, turned pt to apply cooling blanket SpO2 89%, vent FiO2 100% pt recovered to 92%, FiO2 originally decreased to 60% 0100 by RT, gtts
titrated per worklist, otherwise refer to documentation.
[2024-01-29 04:02] LABS: Glucose - Point of Care 179 mg/dl (70-99)
[2024-01-29 04:03] VITALS: BMI 36.2
[2024-01-29 04:04] LABS: HCO3 26.5 mmol/L (21-28); O2 Saturation % 96.6 % (94-98); PCO2 40 mmHg (32-35); PO2 73 mmHg (83-108); pH 7.43 (7.35-7.45)
[2024-01-29 05:14] LABS: Blood Urea Nitrogen 63 mg/dl (7-17); Calcium 8.7 mg/dl (8.4-10.2); Carbon Dioxide 26 mmol/L (22-30); Chloride 110 mmol/L (98-107); Estimated Creatinine Clearance 62 ml/min; Glucose 163 mg/dl (70-99); Magnesium 2.5 mg/dl (1.6-2.3); Phosphorus 3.7 mg/dl (2.5-4.5); Potassium 4.7 mmol/L (3.5-5.1); Sodium 148 mmol/L (135-145); eGFR > 60.00
[2024-01-29 05:15] LABS: Hematocrit 30.1 % (37.0-47.0); Hemoglobin 9.4 g/dL (12.0-16.0); Mean Corp Hgb Conc. 31.2 g/dL (33.0-37.0); Mean Corpuscular Hgb 34.2 pg (27.0-31.0); Mean Corpuscular Volume 109.5 fL (81.0-99.0); Mean Platelet Volume 10.3 fL (7.4-10.4); Platelet Count 243 10^3/uL (130-400); Red Blood Cell Count 2.75 10^6/uL (4.20-5.40); Red Cell Dist. Width 15.5 % (11.5-14.5); White Blood Cell Count 10.6 10^3/uL (4.8-10.8)
[2024-01-29 05:25] LABS: Glucose - Point of Care 195 mg/dl (70-99)
[2024-01-29 06:10] LABS: Glucose - Point of Care 204 mg/dl (70-99)
[2024-01-29 07:03] LABS: Glucose - Point of Care 193 mg/dl (70-99)
[2024-01-29] MEDS: DUONEB 3 ML INH ×4 (07:33→19:47)
[2024-01-29] MEDS: FLOVENT 110 MCG INHALER 4 PUFF INH ×2 (07:33→19:47)
--- NOTE | 2024-01-29 07:37 | W.PN.INTV ---
Today's Communication / Plan
Recommendations
Reculture sputum
Follow radiographically
Attempt to wean FiO2
Increase PEEP
Saline lavages to clear potential mucous plugs and consider bronchoscopy
Insulin drip
Antibiotics
Decrease steroids
Assessment
-
63-year-old female with a history of underlying schizophrenia, diabetes, asthma, presented with cough and shortness of breath noted mucous plugs and pneumonia-pulmonary consulted for pneumonia/COPD/mucous plugs 01/24/24. She had worsening
respiratory distress and was transferred to the ICU on the evening of 01/23 and intubated on 01/25/2024.
Impression:
Acute respiratory failure with hypoxia + hypercapnia now on mechanical ventilation
(intubated 01/25/2024)
Extubated
Metabolic alkalosis due to chronic hypercapnia with CO2 now being acutely blown off s/p intubation
Left lower lobe pneumonia-nosocomial
Shock - due to sedation in setting of sepsis - shock state now resolved
Aspiration risk.
CHF-preserved EF with normal RV size and function
Mild aortic stenosis
Asthma with acute exacerbation due to pneumonia
Leukocytosis - now resolved
Anemia - stable
DM type II c/b hyperglycemia
AMBERLY (baseline Cr 0.8) - worsening
History of mild restrictive lung disease (post�bronchodilator FVC: 69% / 2.04 L via spirometry on 12/12/2020)
Conditions present prior to admission:
Bipolar.
Schizophrenia.
Borderline personality disorder
Diabetes.
Hypertension.
Hypothyroid.
Obesity.
COPD/asthma overlap.
CIELO on CPAP
Anemia.
GERD.
Chronic heart failure, preserved EF.
Appendectomy. Cholecystectomy
Plan
Critically ill sedated on a ventilator-difficulties oxygenating likely due to underlying COPD and pneumonia
Ventilator settings reviewed
Airway pressures reviewed and adequate
Sedation vacations
Wean FiO2 and then PEEP-reviewed with EXPERIMENTAL ELECTRONICS DEVELOPER-Currently on 0.6/8 PEEP-increase PEEP to 10 or even 12 and attempts at recruitment
ABG 01/28/2024--40/70/7.44
ABG 01/29/2024-40/73/7.43
Chest x-ray 01/28/2024-left basilar opacification without change
Chest x-ray 01/29/2024-no significant changes with multifocal pneumonia and atelectasis
CT chest 01/28/2024-no central pulmonary emboli, bilateral lower lobe consolidations left greater than right likely representing atelectasis and pneumonia
VAP prevention protocol
DuoNebs continue
Dusuxgcw-Vmgn-Uvnaji 40 mg IV every 12 hours-decrease to every 24 hours
Respiratory therapy due to large-volume saline lavage and suctioning
If difficulties oxygenating then right side down to help with ventilation/perfusion matching
Bronchoscopy if mucous plugging-hold off for now
Mucolytic's
Diuresis as tolerated-even I's and O's last 24 hours
Monitor renal function, electrolytes, intake/output, lower extremity edema and weight
Replace electrolytes as needed
Cardiology following-correspondence reviewed-signed off 01/25/2024
Cultures reviewed
Urine Legionella and streptococcal antigens negative
Sputum culture 01/25/2024-usual respiratory jennifer
MRSA screen negative
Influenza negative
Blood cultures no growth
Empiric antibiotics
Infectious disease following-correspondence reviewed
Follow leukocytosis
Follow hemoglobin and platelet count
Transfuse as needed
Monitor blood sugar
Insulin drip
Diabetic nurse practitioner following-correspondence reviewed
DVT prophylaxis-on Lovenox.
GI prophylaxis-on pantoprazole while on the ventilator and hypotensive
Nutrition - continue tube feeds
Bedside range of motion, eventual physical therapy
Critical care statement: A total of 45 minutes of critical care time was provided for this patient today. This includes management of unstable vital signs, evaluation of the patient at bedside, reviewing the patient's pertinent medical records
including radiographs, ventilator management, pressor management, microbiology, laboratory evaluations, and discussion with primary team, consultants, pharmacy, nutrition, physical therapy, case management, charge nurse, critical care nursing, and
respiratory therapy.
Studies:
CT chest 01/21/24-multiple pulmonary nodules stable dating back to 02/06/23-over 10 nodules, less than 2 mm
Chest x-ray 01/24/24-large dense lower lobe and lingular airspace disease consistent with pneumonia
CXR 01/25/2024:
Endotracheal tube tip projects in mid thoracic trachea. Nasoenteric tube courses below the diaphragm, tip is excluded by collimation.
Unchanged left mid/lower lung opacity which may represent pneumonia.
Subjective Dataa
Subjective Data
Date of Service:
Date of Service: January 29, 2024
Chief Complaint: Enterprise Systems Architect Follow Up and Pulmonary Follow Up
Subjective:
FiO2 weaned a bit, opens eyes, moving extremities, review of systems unobtainable, mild secretions
Review of Systems
General: Unobtainable - Sedation and Other ( per HPI)
Objective Data
Data Reviewed
Vital Signs / I&O / Oxygen:
Vital Signs
Temp Pulse Resp BP Pulse Ox
99.7 F 67 16 114/50 94
01/29/24 06:24 01/29/24 05:30 01/29/24 05:30 01/28/24 21:21 01/29/24 05:30
Intake and Output
01/28/24 01/29/24 01/30/24
06:59 06:59 06:59
Intake Total 2545.4 / 2648.3 2415.8 / 2415.8
Output Total 1815 / 1815 2089 / 2089
Balance 730.4 / 833.3 325.8 / 325.8
SaO2 [A/C] 92
SaO2 94
Nasal Cannula flow liters per 50
minute
Physical Exam
General: Respiratory Distress (negative), Comfortable, Chills (negative) and Sweats (negative)
HEENT: Normocephalic, Anicteric and Other (ETT in place)
Cardiovascular: Regular Rhythm and Peripheral Edema (Trace lower extremity edema bilaterally)
Respiratory: Wheeze (negative), Crackles (Left base), Rhonchi (Left hemithorax) and ET Tube (Mechanical breath sounds heard bilaterally)
GI: Soft, Distended (Abdominal obesity), Non Tender and Normal Bowel Sounds
Neurology: Awake and Other (Pupils 2 mm bilaterally and sluggish)
Skin: Warm, Good Color, Cyanosis (negative), Jaundice (negative) and Rash (n)
Labs/Micro/Reports
Lab Data
01/29/24 03:56
01/29/24 03:56
Laboratory Results
01/29/24
03:56
pH 7.43
pCO2 40 H
pO2 73 L
HCO3 26.5
O2 Delivery Level
Microbiology
01/24/24 05:30 Blood/Venous Blood Culture - Final
No Growth - Final Report
01/27/24 04:26 Urine Legionella Urinary Antigen - Final
Negative for Legionella pneumophila Serogroup 1 antigen.
A negative result does not rule out the possiblity of
Legionella infection due to other serogroups or species of
Legionella. Clinical correlation is recommended.
01/27/24 04:26 Urine Streptococcus pneumoniae Antigen (M - Final
Negative for Streptococcus pneumoniae antigen.
A negative result does not exclude infection with
Streptococcus pneumoniae. Clinical correlation is
recommended.
01/25/24 08:34 Endotracheal Respiratory Culture - Final
Usual Respiratory Jennifer
01/25/24 08:34 Endotracheal Gram Stain - Final
01/24/24 22:34 Nose MRSA Screen - Final
No Methicillin Resistant Staphylococcus aureus isolated.
[2024-01-29 07:49] LABS: Absolute Neutrophils -Man Diff 5.8 10^3/uL (1.4-6.5); Band Neutrophils 10 % (0-3); Lymphocytes 30 % (20-51); Monocytes 8 % (2-9); Myelocytes 7 % (-); Normal RBC Morphology Yes; Platelets Checked Yes; Segmented Neutrophils 45 % (42-75); Vacuolated Segs 2+
[2024-01-29 07:50] LABS: Nucleated Red Blood Cells 2 (-); Total Cells Counted 100
[2024-01-29 08:00] VITALS: BP 139/64
[2024-01-29 08:15] VITALS: BP 139/64
[2024-01-29 08:20] LABS: Glucose - Point of Care 173 mg/dl (70-99)
[2024-01-29] MEDS: VIBRAMYCIN 100 MG TUBE ×2 (08:29→20:36)
[2024-01-29] MEDS: SYNTHROID 75 MCG TUBE (08:29)
[2024-01-29] MEDS: MAXIPIME 2000 MG IV (08:33)
[2024-01-29] MEDS: SOLU-MEDROL PF 40 MG IV (08:33)
[2024-01-29] MEDS: STERILE WATER FOR INJECTION 10 ML IV ×3 (08:34→23:00)
[2024-01-29] MEDS: HEPARIN 5000 UNITS SC (08:34)
[2024-01-29] MEDS: FLUSH (NSS) 2 FLUSH IV (08:34)
[2024-01-29] MEDS: DEPAKENE 500 MG TUBE ×3 (08:38→22:02)
[2024-01-29] MEDS: COLACE LIQUID 100 MG TUBE ×2 (08:39→20:36)
[2024-01-29] MEDS: ZETIA 10 MG TUBE (08:39)
[2024-01-29] MEDS: LASIX 40 MG PO (08:39)
[2024-01-29] MEDS: ROBITUSSIN 200 MG PO ×4 (08:39→22:02)
[2024-01-29] MEDS: VALTREX 500 MG TUBE (08:40)
[2024-01-29] MEDS: PROZAC 20 MG TUBE (08:40)
[2024-01-29] MEDS: PREVACID 30 MG TUBE (08:40)
[2024-01-29] MEDS: MIRALAX 17 GRAMS TUBE (08:40)
--- NOTE | 2024-01-29 08:58 | PN.DE.MGMTRT ---
Insulin Management
- -
01/29/2024: Diabetes Management Consult Follow up
63-year-old female who presented w/cough and SOB, due to pneumonia/COPD/mucous plugs on 01/24/24. She had worsening respiratory distress and was transferred to the ICU on the evening of 01/23 and intubated on 01/25/2024 due to Acute respiratory
failure with hypoxia and hypercapnia.
PMH: COPD, Asthma, Schizophrenia and T2DM. Chart review indicates she was taking Metformin 1000mg BID, Farxiga 10mg daily, Lantus 15 units @ HS and Apidra 12 units AC. A1C 6.8%, Cr 1.3, eGFR 46.21
Pt critically ill, intubated and sedated, history unobtainable, no family at bedside. Information obtained from chart review and patient nurse.
Was started on IV Steroids and Tube feeds, contributing to hyperglycemia.
01/26 Glucose trended up to 347, critical care glycemia protocol has been initiated, range of 4.5 to 8 units per hour.
01/27 CR 1, eGFR > 60, Patient remains critically ill, tube feeds currently on HOLD Patient for CT scan. Will continue glycemic protocol at this time.
01/28 Patient remains intubated, critically ill. Tube feeds resumed @ [address] scan. HELD this AM s/p medication administration. Glucose range 145 to 193 on glycemic protocol requiring 4 to 7 units of insulin per hour.
Will follow and assess for readiness to transition off drip to sq insulin. Discussed with patient nurse.
Diabetes History
- -
Type of Diabetes: 2 requiring insulin
Pre-Admission Diabetes Regimen
01/29/24
03:56
Creatinine 1.0
Lab Results
Hemoglobin A1c 6.8 % (4.0-5.6) H 01/25/24 06:17
Insulin Pump Settings
IP Diabetes Regimen
01/28/24 01/28/24 01/28/24
08:53 09:55 10:50
Glucose
POC Glucose 138 H 123 H 159 H
01/28/24 01/28/24 01/28/24
11:49 12:56 14:22
Glucose
POC Glucose 132 H 151 H 164 H
01/28/24 01/28/24 01/28/24
15:30 16:33 17:29
Glucose
POC Glucose 160 H 193 H 195 H
01/28/24 01/28/24 01/28/24
18:35 19:39 20:50
Glucose
POC Glucose 145 H 119 H 173 H
01/28/24 01/28/24 01/28/24
22:01 22:57 23:56
Glucose
POC Glucose 186 H 166 H 160 H
01/29/24 01/29/24 01/29/24
02:00 02:59 03:51
Glucose
POC Glucose 206 H 182 H 179 H
01/29/24 01/29/24 01/29/24
03:56 05:14 05:59
Glucose 163 H
POC Glucose 195 H 204 H
01/29/24 01/29/24
06:52 08:09
Glucose
POC Glucose 193 H 173 H
Patient Education
--- NOTE | 2024-01-29 09:10 | PTCARENOTE ---
Rec'd pt at 0800 resting in bed on Lateral rotation mattress. Rec'd pt sedated on Diprivan at 25 mcg and Fentanyl at 100 mcg. Intially opened eyes to name and did not yes that she could hear me. Did not follow commands to grasp hands but did move
her R arm on her own when unrestrained. Rass intially -1 to -2 then will have periods where she will open her eyes to her name but no focus or tracking and does not nod at all. Will try pt on Diprivan at 20 mcg to see if can get a more consistent
response. Bilateral soft wrist restraints in place for pt safety. Skin is pale pink wm and dry. Cooling blanket under pt but off currently and current temp is 99. Bruising noted on arm and abd. Respirs are intact on the vent. #8 Ett repositioned at
the 23 cm sera center of the mouth. Suctioned for a small amt of thick tannish bloody tinged secretions. + cough. Weak gag. Vent settings AC 16, tv 450, peep 8. Does not rate or volume currently. Sats are 92% on 60% Fio2. BS are coarse throughout.
Monitor SR. VS as documented. Pt with L radial A line- zeroed and recalibrated. Waveform as documented. Good CMS checks to distal extrem. Overall congruent with cuff BP. + pulses. +1-+2 generalized anasarca. KH SCD's intact. ABd is obese with
hypoactive BS. [place] Orogastric tube in place 68 cm sera - Tube feeds on hold currently for meds but will restart in 30 min with Vital AF at 50 ml/hr with 25 ml/hr flush. No stools. Thermistor dorman in place for yellow urine. Pt on the glycemic
protocol and Insulin gtt infusing along with Prop and Fentanyl via L arm Midline. Site wnl. Capped #22 int inact R ac site wnl. Pt repositioned. Skin and mouth care given. Percussion done through sport bed. Plan of care reviewed with pt.
[2024-01-29 09:23] LABS: Glucose - Point of Care 173 mg/dl (70-99)
[2024-01-29] MEDS: SUBLIMAZE 100 IV ×2 (10:14→19:30)
--- NOTE | 2024-01-29 10:15 | PTCARENOTE ---
Resp therapy in and suctioned pt- able to get a few bloody tinged plugs. Specimen sent. Resp then placed pt on Peep of 12. Sats 90%. No other changes. Tube feeds restarted at 0940 after being held for meds. Repositioned. Tolerating Propophol at 20
mcg. Opens eyes readily to name but does not consistently follow commands. Remains on rotation on Sport bed.
[2024-01-29 10:35] LABS: Glucose - Point of Care 189 mg/dl (70-99)
--- NOTE | 2024-01-29 10:42 | W.PN.INTV ---
Today's Communication / Plan
Recommendations
TODAY - Saturday01/29/2024
Pt Continue to be Sedated/Multimodal Pain Control Analgesia - Currently on Fentanyl/100 & Propofol/20
Continue on Mechanical Ventilation
Significant mucus/sputum plug removed this AM by respiratory team - Mild associated improvement on Vent Parameters Noted
Specimen sent for Sputum Cultures
Plan for Transient Increase on Vent PEP for Airway Opening
Continue Solumedrol QD
Continue Conservative Respiratory & Supportive Measures
Cont. Broad Spectrum ABXs UniSyn/ Day 06/13
Continue on Glycemic Control
Starting Bowel Regimen (Last BM on )
Plan for a Pick Line Placement Today
Cont. GI Ppx
Cont. DVT Ppx
Assessment
-
63-year-old female with a history of underlying schizophrenia, diabetes, asthma, presented with cough and shortness of breath noted mucous plugs and pneumonia-pulmonary consulted for pneumonia/COPD/mucous plugs 01/24/24. She had worsening
respiratory distress and was transferred to the ICU on the evening of 01/23 and intubated on 01/25/2024.
Impression:
Acute respiratory failure with hypoxia + hypercapnia now on mechanical ventilation
(intubated 01/25/2024)
Extubated
Metabolic alkalosis due to chronic hypercapnia with CO2 now being acutely blown off s/p intubation
Left lower lobe pneumonia-nosocomial
Shock - due to sedation in setting of sepsis - shock state now resolved
Aspiration risk.
CHF-preserved EF with normal RV size and function
Mild aortic stenosis
Asthma with acute exacerbation due to pneumonia
Leukocytosis - now resolved
Anemia - stable
DM type II c/b hyperglycemia
AMBERLY (baseline Cr 0.8) - worsening
History of mild restrictive lung disease (post�bronchodilator FVC: 69% / 2.04 L via spirometry on 12/12/2020)
Conditions present prior to admission:
Bipolar.
Schizophrenia.
Borderline personality disorder
Diabetes.
Hypertension.
Hypothyroid.
Obesity.
COPD/asthma overlap.
CIELO on CPAP
Anemia.
GERD.
Chronic heart failure, preserved EF.
Appendectomy. Cholecystectomy
Plan
She continues to be critically ill sedated on a ventilator-difficulties oxygenating likely due to underlying COPD and pneumonia
Ventilator settings reviewed
Airway pressures reviewed and adequate
Wean FiO2 and then PEEP-reviewed with PLC CONTROLS ENGINEER-Currently on 0.7/8 PEEP
ABG 01/28/2024--40/70/7 0.44
Chest x-ray 01/28/2024-left basilar opacification without change
VAP prevention protocol
DuoNebs continue
Zajjfxac-Ksjj-Rqiyfk 40 mg IV every 12 hours-No change
If difficulties oxygenating then right side down to help with ventilation/perfusion matching
Bronchoscopy if mucous plugging
Mucolytic's
Check CT chest with PE protocol-unexplained hypoxemia, better assess left base-? Effusion, atelectasis or pneumonia
Continue diuresis as tolerated
Monitor renal function, electrolytes, intake/output, lower extremity edema and weight
Replace electrolytes as needed
Cardiology following-correspondence reviewed-signed off 01/25/2024
Cultures reviewed
Urine Legionella and streptococcal antigens negative
Sputum culture 01/25/2024-usual respiratory jennifer
MRSA screen negative
Influenza negative
Blood cultures no growth
Empiric antibiotics
Infectious disease following-correspondence reviewed
Follow leukocytosis
Follow hemoglobin and platelet count
Transfuse as needed
Monitor blood sugar
Insulin drip
Diabetic nurse practitioner -Following-correspondence reviewed
DVT prophylaxis-on Lovenox.
GI prophylaxis-on pantoprazole while on the ventilator
Nutrition - continue tube feeds
Bedside range of motion, eventual physical therapy
Critical care statement: A total of 50 minutes of critical care time was provided for this patient today. This includes management of unstable vital signs, evaluation of the patient at bedside, reviewing the patient's pertinent medical records
including radiographs, ventilator management, pressor management, microbiology, laboratory evaluations, and discussion with primary team, consultants, pharmacy, nutrition, physical therapy, case management, charge nurse, critical care nursing, and
respiratory therapy.
Studies:
CT chest 01/21/24-multiple pulmonary nodules stable dating back to 02/06/23-over 10 nodules, less than 2 mm
Chest x-ray 01/24/24-large dense lower lobe and lingular airspace disease consistent with pneumonia
CXR 01/25/2024:
Endotracheal tube tip projects in mid thoracic trachea. Nasoenteric tube courses below the diaphragm, tip is excluded by collimation.
Unchanged left mid/lower lung opacity which may represent pneumonia.
Subjective Dataa
Subjective Data
Date of Service:
Date of Service: January 29, 2024
Patient was seen and evaluated at bedside this morning with the attending physician and the ICU team, during morning rounds.
In NAD / Currently Sedated
Mechanical Ventilation
Hemodynamically stable
NO Acute Events O/N
Significant mucus/sputum plug removed this AM by respiratory team
No BM (Since Admission to the Unit on the )
Persistent L-Basilar Opacification with mild associated ipsilateral Effusion (Atelectasis VS. Pneumonia)
Yesterday CTA Negative for PE
Chief Complaint: Mechanical Tech Follow Up and Pulmonary Follow Up
Objective Data
Data Reviewed
Vital Signs / I&O / Oxygen:
Vital Signs
Temp Pulse Resp BP Pulse Ox
37.2 C 76 16 109/46 91
01/29/24 08:00 01/29/24 08:39 01/29/24 07:35 01/29/24 08:39 01/29/24 10:23
Intake and Output
01/28/24 01/29/24 01/30/24
06:59 06:59 06:59
Intake Total 2545.4 / 2648.3 2415.8 / 2415.8
Output Total 1815 / 1815 2089 / 2089
Balance 730.4 / 833.3 325.8 / 325.8
SaO2 [A/C] 92
SaO2 91
Nasal Cannula flow liters per 50
minute
Physical Exam
General: Respiratory Distress (negative), Comfortable, Chills (negative) and Sweats (negative)
HEENT: Normocephalic, Anicteric and Other (ETT in place)
Cardiovascular: Regular Rhythm and Peripheral Edema (Trace lower extremity edema bilaterally)
Respiratory: Wheeze (negative), Crackles (Left base), Rhonchi (Left hemithorax) and ET Tube (Mechanical breath sounds heard bilaterally)
GI: Soft, Distended (Abdominal obesity), Non Tender and Normal Bowel Sounds
Neurology: Awake and Other (Pupils 2 mm bilaterally and sluggish)
Skin: Warm, Good Color, Cyanosis (negative), Jaundice (negative) and Rash (n)
Labs/Micro/Reports
Lab Data
01/29/24 03:56
01/29/24 03:56
Laboratory Results
01/29/24
03:56
pH 7.43
pCO2 40 H
pO2 73 L
HCO3 26.5
O2 Delivery Level
Microbiology
01/24/24 05:30 Blood/Venous Blood Culture - Final
No Growth - Final Report
01/27/24 04:26 Urine Legionella Urinary Antigen - Final
Negative for Legionella pneumophila Serogroup 1 antigen.
A negative result does not rule out the possiblity of
Legionella infection due to other serogroups or species of
Legionella. Clinical correlation is recommended.
01/27/24 04:26 Urine Streptococcus pneumoniae Antigen (M - Final
Negative for Streptococcus pneumoniae antigen.
A negative result does not exclude infection with
Streptococcus pneumoniae. Clinical correlation is
recommended.
01/25/24 08:34 Endotracheal Respiratory Culture - Final
Usual Respiratory Jennifer
01/25/24 08:34 Endotracheal Gram Stain - Final
01/24/24 22:34 Nose MRSA Screen - Final
No Methicillin Resistant Staphylococcus aureus isolated.
[2024-01-29 11:41] LABS: Glucose - Point of Care 189 mg/dl (70-99)
--- NOTE | 2024-01-29 12:48 | W.PN.HOSP.TC ---
Today's Communication/Plan
-
Monitor vital signs
see plan
Increase tube water flushes
repeat sodium
wean vent as tolerated
follow fever curve
abx per ID
Assessment / Plan
Assessment / Plan
Physical Exam
General: Sedated Obese
HEENT: Moist mucous membranes, Pinpoint pupils b/l
Respiratory: Intubated Ronchi on auscultation
Cardiac: S1/S2 Tachycardia; No Murmur
GI: Soft, some distension noted, decreased bowel sounds
Musculoskeletal: No Clubbing, No Cyanosis and No Edema
Neuro: Sedated but responsive to physical stimuli nonresponsive to verbal
A/P: Patient is a 63y F with PMH significant for schizophrenia, DM-II and COPD who presents to ED complaining of cough and SOB.
Acute on Chronic Hypoxemic Respiratory failure
required intubation overnight 01/23-01/24
Wean vent as tolerated, vent management per manganese heater. Currently has high oxygen requirements. Did well with suction. No plan for bronch yet. Persistent opacification
Currently on propofol, fentanyl, wean sedation as tolerable
- Suspect multifactorial with components of LLL pneumonia vs atelectasis vs pulmonary edema
- Baseline chronic O2 supplementation 2L at home
CT chest pe neg for PE
LLL Pneumonia vs Atelectasis Mucus plugging
Septic Shock (fever leukocytosis requiring pressor support)
- CXR with dense opacity in the L base concerning for Pneumonia vs Atelectasis mucus plugging
- Pulm eval appreciated Diamox provided with subsequent improvement Metabolic Alkalosis
- ID eval appreciated cont Cefipime Doxycycline
- Supportive care including mucolytics, nebs, Chest PT
-weaned off Levophed
follow fever curve
Hypernatremia
Sodium 148 today, increased tube flushes
Repeat sodium later today
Severe Iron deficiency Anemia
-monitor H&H
-IV iron supplementation
Acute on Chronic HFpEF on admission; now appears euvolemic
- Weight is increased from prior noted baseline per our records.
- BNP significantly elevated from prior as well.
- Monitor I/Os, daily weights
- ECHO appreciated EF 60-65% compared with prior ECHO Feb 2022 mild aortic stenosis new finding.
- Cardio Eval appreciated home oral Lasix resumed with improvement in pressures weaned off pressors
Mild AMBERLY
improving
cont to monitor on diuresis as above
COPD without Acute Exacerbation
Aspiration precautions.
Eventual Speech evaluation (if patient amenable); currently intubated
Schizoaffective Disorder
- Continue current psychotropic med regimen.
Benign Hypertension
�- Stable.� Continue home med regimen.
DM-II
Steroid induced hyperglycemia
�- Stable.� Continue outpatient Farxiga. Hold metformin acutely.
- Continue basal : bolus insulin regimen.
�- SSI coverage as needed.
- A1C 6.8
Sugars uncontrolled, started insulin drip. 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
Hypothyroidism
�- Continue home T4 supplementation.
Obesity due to excess calories and insulin resistance.
�- Affects all aspects of care.
�- Encourage healthy diet and increased activity with goal of weight loss.
DVT Prophylaxis:� Lovenox
Code Status:� Full
I spent a total of 51 minutes with the patient or on the floor. More than 50% of this time involved counseling and coordination of care.
Anticipated Discharge: > 48 hours
Subjective/Interval History
-
Date of Service: January 29, 2024
Continues to be intubated
Objective Data
-
Labs:
Laboratory Results
01/29/24
03:56
WBC 10.6
Hgb 9.4 L
Hct 30.1 L
Plt Count 243
HCO3 26.5
Sodium 148 H
Potassium 4.7
Chloride 110 H
Carbon Dioxide 26
BUN 63 H
Creatinine 1.0
Glucose 163 H
Calcium 8.7
Vital Signs:
Vital Signs
Temp Pulse Resp BP Pulse Ox
99.3 F 71 16 109/46 91
01/29/24 11:03 01/29/24 10:54 01/29/24 10:54 01/29/24 08:39 01/29/24 10:54
I&O
01/28/24 01/29/24 01/30/24
06:59 06:59 06:59
Intake Total 2545.4 / 2648.3 2415.8 / 2445.5 527.9 / 527.9
Output Total 1815 / 1815 2089 / 2089 770 / 770
Balance 730.4 / 833.3 325.8 / 355.5 -242.1 / -242.1
--- NOTE | 2024-01-29 12:49 | CM ---
CM following re: discharge planning.
Discussed in Rounds, reviewed pt's chart, met with pt. Per Rounds meeting, pt remains intubated and sedated, moves all extremities, opens eyes, does not follows commands to grasp hands, continue supportive care.
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
D/C plan: Uncertain at this time and will depend on pt's progress.
CM will follow with discharge plan updates as hospitalization progresses
--- NOTE | 2024-01-29 13:00 | PTCARENOTE ---
Pt has remained restful on the vent. Tolerating Propophol at 20 mcg, and Fentanyl at 100 mcg. Opens eyes and will occasionally nod. Does move arms but not often and minimal leg movement. Tolerating the vent. Remains on 60% and sats are 94-95%. VS as
documented. Tolerating tube feeds. IV team in at noon and R arm midline placed. Great blood return. Site wnl. Repositioned.
[2024-01-29 13:02] LABS: Glucose - Point of Care 198 mg/dl (70-99)
--- NOTE | 2024-01-29 13:08 | W.PN.ID1 ---
Date of Service
Date of Service: January 29, 2024
Today's Communication
Replace cefepime with meropenem.
Continue doxycycline.
Assessment / Plan
# Multifocal pneumonia
# Mucous plugging/atelectasis
# Acute on chronic hypoxemic respiratory failure, VDRF/intubated,
# Fever - recurred last night
# Leukocytosis - resolved, + bandemia
# COPD on home 2LO2 (never smoked)
- CT chest neg PNA 3 days prior to admission
-bcx's neg to date
- urine legionella and pneumococcal antigen negative x 2
- sputum cx: usual respiratory jennifer
-repeat sputum cx pending
- MRSA screen negative
- Currently on cefepime and doxycycline (d6).
Broaden abx: replace cefepime with meropenem.
- Follow clinically and oxygen status
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
Schizophrenia
Diabetes mellitus
COPD on 2L02
Pulmonary nodules
Hypertension
Hypothyroidism
Heart failure with preserved EF
BMI 36
Appendectomy
Cholecystectomy
Resides in [facility]
Chief Complaint
-: Pneumonia
Subjective / Review of Systems
On vent
Vital Signs / Physical Exam
Vital Signs
Vital Signs
Temp Pulse Resp BP Pulse Ox
99.3 F 71 16 109/46 91
01/29/24 11:03 01/29/24 10:54 01/29/24 10:54 01/29/24 08:39 01/29/24 10:54
Selected Entries
01/29/24
03:10
Temp 101.1 F H
Physical Exam
Constitutional: Comfortable
Eyes: Sclera Anicteric
Oropharyngeal: Other (edentulous)
Cardiovascular: Regular Rate and S1/S2
Pulmonary: Coarse
Gastrointestinal: Soft, Non Tender, Non Distended and Normal Bowel Sounds
Genito-Urinary: [place] and Clear Urine
Extremities: Negative Edema
Objective Data
Lab Data
Lab Results
01/29/24 03:56
PT 14.8 Sec (11.4-14.6) H 01/24/24 04:57
INR 1.11 01/24/24 04:57
APTT 30.8 Sec (23.4-35.0) 01/24/24 04:57
Estimated Creat Clear 62 ml/min 01/29/24 03:56
Lactic Acid Cancelled 01/26/24 06:00
Total Bilirubin Cancelled 01/24/24 04:57
AST Cancelled 01/24/24 04:57
ALT Cancelled 01/24/24 04:57
Alkaline Phosphatase Cancelled 01/24/24 04:57
Most recent labs reviewed.
Micro Results:
01/29/24 10:16 Respiratory Culture - Pending
Tracheal Aspirate Gram Stain - Preliminary
01/24/24 05:30 Blood Culture - Final
Blood/Venous No Growth - Final Report
01/27/24 04:26 Legionella Urinary Antigen - Final
Urine Negative for Legionella pneumophila Serogroup 1 antigen.
A negative result does not rule out the possiblity of
Legionella infection due to other serogroups or species of
Legionella. Clinical correlation is recommended.
Streptococcus pneumoniae Antigen (M - Final
Negative for Streptococcus pneumoniae antigen.
A negative result does not exclude infection with
Streptococcus pneumoniae. Clinical correlation is
recommended.
01/25/24 08:34 Respiratory Culture - Final
Endotracheal Usual Respiratory Jennifer
Gram Stain - Final
01/24/24 22:34 MRSA Screen - Final
Nose No Methicillin Resistant Staphylococcus aureus isolated.
01/24/24 06:00 Legionella Urinary Antigen - Final
Urine Negative for Legionella pneumophila Serogroup 1 antigen.
A negative result does not rule out the possiblity of
Legionella infection due to other serogroups or species of
Legionella. Clinical correlation is recommended.
Streptococcus pneumoniae Antigen (M - Final
Negative for Streptococcus pneumoniae antigen.
A negative result does not exclude infection with
Streptococcus pneumoniae. Clinical correlation is
recommended.
01/24/24 06:29 Influenza Types A & B (SUSHANT) - Final
Nasal Swab Negative for Influenza A & B, NAAT
Negative results must be combined with clinical observations
and patient history.
Nucleic Acid Amplification test (NAAT)performed on the
[employer] platform.
01/29/24 CXR: Similar appearance of the opacities projecting over the left mid/lower lung and right lower lung, likely representing multifocal pneumonia/atelectasis.
01/28/[address]: No findings to suggest central pulmonary embolism. New bilateral lower lobe consolidations, left greater than right in comparison to recent prior 01/[address], likely representing combination of atelectasis and pneumonia.
01/26/24 CXR: Similar appearance of the left mid/lower lung opacity which likely represents pneumonia.
01/24/24 CXR: LARGE DENSE LEFT LOWER LOBE and LINGULAR AIRSPACE CONSOLIDATION which has markedly increased since 01/21/2024. Diagnostic possibilities are (1) severe left lower lobe pneumonia or (2) severe atelectasis in the left lower lobe and
lingula secondary to endobronchial mucous plugging. New mild right to left mediastinal shift consistent with volume loss in the left lung. Mild cardiomegaly.
01/21/24 CT chest: The appearance, stability and multiplicity of the multiple tiny bilateral pulmonary nodules dating back to 02/06/2023 indicate that they are benign
[2024-01-29] MEDS: NOVOLIN R INSULIN INFUSION 100 IV (13:42)
[2024-01-29 13:54] LABS: Glucose - Point of Care 201 mg/dl (70-99)
[2024-01-29] MEDS: FERRLECIT 110 MG IV (13:58)
[2024-01-29] MEDS: DULCOLAX 10 MG RECTAL (13:59)
--- NOTE | 2024-01-29 14:00 | PTCARENOTE ---
Pt has not moved her bowels. Dulcolax supp given
[2024-01-29 14:03] VITALS: BP 148/68
--- NOTE | 2024-01-29 15:15 | PTCARENOTE ---
Resp therapy in and at 1445 Fio2 decreased to 50% -tolerated with sats of 95%- and currently Fio2 decreased to 40% and sats 92%- no other changes
[2024-01-29 15:25] LABS: Glucose - Point of Care 211 mg/dl (70-99)
[2024-01-29 16:18] LABS: Glucose - Point of Care 216 mg/dl (70-99)
[2024-01-29 16:34] VITALS: BP 140/62
--- NOTE | 2024-01-29 17:00 | PTCARENOTE ---
Assessment is unchanged. Does open eyes to stimuli but doesn't tend to follow other commands other than an occasional nod yes. Suctioned. ETT repostioned on the L side at the 23 cm sera. Tolerating 40% FIo2 sats mostly 91-92. Tolerating tube feeds.
Glycemic protocol continues
[2024-01-29 17:21] LABS: Glucose - Point of Care 155 mg/dl (70-99)
[2024-01-29] MEDS: LOVENOX 40 MG SC (18:14)
[2024-01-29] MEDS: MERREM 500 MG IV ×2 (18:15→23:00)
--- NOTE | 2024-01-29 18:15 | PTCARENOTE ---
Pts RASS is closer to a -3- will try her on Propophol at 15 mcg. No other changes.
[2024-01-29] MEDS: FLUSH (NSS) 1 FLUSH IV (18:17)
[2024-01-29 18:19] LABS: Glucose - Point of Care 136 mg/dl (70-99)
[2024-01-29 18:47] VITALS: BP 130/62
[2024-01-29 19:15] LABS: Glucose - Point of Care 118 mg/dl (70-99)
--- NOTE | 2024-01-29 19:30 | PTCARENOTE ---
received report, dual bedside RN med rec, RASS -2, pt opens eyes to verbal but not following, B/L wrist restraints, lightly squeezed my hand but followed no other commands, +cough, weak gag, pupils 2, NSR on the monitor, + pulses, +2 anasarca, B/L
SCD's, #8 ETT 23 @ lip on R, AC 16/450/40/12 SpO2 93%, coarse throughout, OGT 68cm @ lip, TF Vital AF 50ml/35ml H2O flush, turned off for med requirement, round obese BSx4 hyperactive, thermistor dorman yellow lay output, sport bed percussion per
order, L radial A-line cuff pressure more elevated, L and R midline, 22G RAC, prop, 15mcg/8.2ml, fent 100mcg/10ml, insulin gtt 10ml, glycemic protocol, otherwise refer to documentation
[2024-01-29 20:11] LABS: Glucose - Point of Care 102 mg/dl (70-99)
[2024-01-29] MEDS: SENNA SYRUP 8.8 MG TUBE (20:36)
[2024-01-29 21:10] LABS: Glucose - Point of Care 116 mg/dl (70-99)
[2024-01-29] MEDS: KLONOPIN 1.5 MG TUBE (22:02)
[2024-01-29] MEDS: ZYPREXA 10 MG TUBE (22:02)
[2024-01-29 22:08] LABS: Glucose - Point of Care 99 mg/dl (70-99)
[2024-01-29 23:10] LABS: Glucose - Point of Care 125 mg/dl (70-99)
[2024-01-29 23:11] VITALS: BP 141/71
[2024-01-30] VITALS (17 sets, daily range): BP systolic 106–129; BP diastolic 57–67; BMI 36.0
[2024-01-30 00:08] LABS: Glucose - Point of Care 139 mg/dl (70-99)
--- NOTE | 2024-01-30 00:30 | PTCARENOTE ---
Systems reviewed, pt SpO2 hanging around 89% multiple suction attempts RT notified, SpO2 recovered >93%, CHG bath, percussion per order, gtts titrated per worklist, otherwise refer to documentation.
[2024-01-30] MEDS: NOVOLIN R INSULIN INFUSION 100 IV (02:02)
[2024-01-30 02:11] LABS: Glucose - Point of Care 136 mg/dl (70-99)
[2024-01-30 03:52] LABS: B.E. 4.1 mmol/L; HCO3 26.9 mmol/L (21-28); O2 Saturation % 98.6 % (94-98); PCO2 33 mmHg (32-35); PO2 84 mmHg (83-108); pH 7.52 (7.35-7.45)
[2024-01-30 03:54] LABS: O2 Therapy 70%
[2024-01-30 04:08] LABS: Glucose - Point of Care 104 mg/dl (70-99)
[2024-01-30 04:28] LABS: Hematocrit 28.4 % (37.0-47.0); Hemoglobin 9.5 g/dL (12.0-16.0); Mean Corp Hgb Conc. 33.5 g/dL (33.0-37.0); Mean Corpuscular Hgb 35.4 pg (27.0-31.0); Mean Platelet Volume 10.6 fL (7.4-10.4); Platelet Count 223 10^3/uL (130-400); Red Blood Cell Count 2.68 10^6/uL (4.20-5.40); Red Cell Dist. Width 15.4 % (11.5-14.5); White Blood Cell Count 12.8 10^3/uL (4.8-10.8)
[2024-01-30] MEDS: MERREM 500 MG IV ×4 (05:04→23:12)
[2024-01-30] MEDS: STERILE WATER FOR INJECTION 10 ML IV ×4 (05:04→23:13)
[2024-01-30 05:34] LABS: Blood Urea Nitrogen 63 mg/dl (7-17); Calcium 8.9 mg/dl (8.4-10.2); Carbon Dioxide 27 mmol/L (22-30); Chloride 109 mmol/L (98-107); Estimated Creatinine Clearance 78 ml/min; Glucose 125 mg/dl (70-99); Magnesium 2.3 mg/dl (1.6-2.3); Phosphorus 3.6 mg/dl (2.5-4.5); Potassium 4.3 mmol/L (3.5-5.1); Sodium 147 mmol/L (135-145); Triglycerides 129 mg/dl (10-149); eGFR > 60.00
[2024-01-30] MEDS: DIPRIVAN 100 IV ×2 (05:36→15:59)
[2024-01-30] MEDS: SUBLIMAZE 100 IV ×2 (06:11→18:09)
[2024-01-30 06:13] LABS: Glucose - Point of Care 141 mg/dl (70-99)
[2024-01-30] MEDS: FLOVENT 110 MCG INHALER 4 PUFF INH ×2 (07:45→19:48)
[2024-01-30] MEDS: DUONEB 3 ML INH ×4 (07:45→19:48)
--- NOTE | 2024-01-30 07:45 | W.PN.INTV ---
Today's Communication / Plan
Recommendations
Wean FiO2
Then wean PEEP
Spontaneous breathing trial when PEEP weaned to 5
Diuresis as tolerated
Antibiotics-meropenem
No change in methylprednisolone
Assessment
-
63-year-old female with a history of underlying schizophrenia, diabetes, asthma, presented with cough and shortness of breath noted mucous plugs and pneumonia-pulmonary consulted for pneumonia/COPD/mucous plugs 01/24/24. She had worsening
respiratory distress and was transferred to the ICU on the evening of 01/23 and intubated on 01/25/2024.
Impression:
Acute respiratory failure with hypoxia + hypercapnia now on mechanical ventilation
(intubated 01/25/2024)
Extubated
Metabolic alkalosis due to chronic hypercapnia with CO2 now being acutely blown off s/p intubation
Left lower lobe pneumonia-nosocomial
Shock - due to sedation in setting of sepsis - shock state now resolved
Aspiration risk.
CHF-preserved EF with normal RV size and function
Mild aortic stenosis
Asthma with acute exacerbation due to pneumonia
Leukocytosis - now resolved
Anemia - stable
DM type II c/b hyperglycemia
AMBERLY (baseline Cr 0.8) - worsening
History of mild restrictive lung disease (post�bronchodilator FVC: 69% / 2.04 L via spirometry on 12/12/2020)
Conditions present prior to admission:
Bipolar.
Schizophrenia.
Borderline personality disorder
Diabetes.
Hypertension.
Hypothyroid.
Obesity.
COPD/asthma overlap.
CIELO on CPAP
Anemia.
GERD.
Chronic heart failure, preserved EF.
Appendectomy. Cholecystectomy
Plan
The patient continues to be critically ill on a ventilator
Ventilator settings reviewed-FiO2 weaned to 0.4 and PEEP weaned to 8
Airway pressures reviewed and adequate
Sedation vacations continue
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
ABG 01/28/2024--40/70/7.44
ABG 01/29/2024-40/73/7.43
ABG 01/30/24-30 3/84/7.52-decrease minute ventilation-rate decreased to 12
Chest x-ray 01/28/2024-left basilar opacification without change
Chest x-ray 01/29/2024-no significant changes with multifocal pneumonia and atelectasis
CT chest 01/28/2024-no central pulmonary emboli, bilateral lower lobe consolidations left greater than right likely representing atelectasis and pneumonia
VAP prevention protocol
DuoNebs continue
Ftopdpqx-Xadt-Ztoqtd 40 mg IV every 12 hours-decreased to every 24 hours-no change
Respiratory therapy due to large-volume saline lavage and suctioning
If difficulties oxygenating then right side down to help with ventilation/perfusion matching
Bronchoscopy if mucous plugging-hold off for now
Mucolytic's
Diuresis continues as tolerated-even I's and O's last 24 hours
Monitor renal function, electrolytes, intake/output, lower extremity edema and weight
Replace electrolytes as needed
Cardiology following-correspondence reviewed-signed off 01/25/2024
Cultures reviewed
Urine Legionella and streptococcal antigens negative
Sputum culture 01/25/2024-usual respiratory jennifer
MRSA screen negative
Influenza negative
Blood cultures no growth
Empiric antibiotics continue-continue meropenem, last dose of doxycycline 01/30/2024
Infectious disease following-correspondence reviewed
Follow leukocytosis
Follow hemoglobin and platelet count
Transfuse as needed
Monitor blood sugar
Insulin drip
Diabetic nurse practitioner following-correspondence reviewed
DVT prophylaxis-on Lovenox.
GI prophylaxis-on pantoprazole while on the ventilator and hypotensive
Nutrition - continue tube feeds
Bedside range of motion, eventual physical therapy
Critical care statement: A total of 42 minutes of critical care time was provided for this patient today. This includes management of unstable vital signs, evaluation of the patient at bedside, reviewing the patient's pertinent medical records
including radiographs, ventilator management, pressor management, microbiology, laboratory evaluations, and discussion with primary team, consultants, pharmacy, nutrition, physical therapy, case management, charge nurse, critical care nursing, and
respiratory therapy.
Studies:
CT chest 01/21/24-multiple pulmonary nodules stable dating back to 02/06/23-over 10 nodules, less than 2 mm
Chest x-ray 01/24/24-large dense lower lobe and lingular airspace disease consistent with pneumonia
CXR 01/25/2024:
Endotracheal tube tip projects in mid thoracic trachea. Nasoenteric tube courses below the diaphragm, tip is excluded by collimation.
Unchanged left mid/lower lung opacity which may represent pneumonia.
Subjective Dataa
Subjective Data
Date of Service:
Date of Service: January 30, 2024
Chief Complaint: Research Program Internship Follow Up and Pulmonary Follow Up
Subjective:
FiO2 weaned as well as PEEP, moderate amount secretions, sedated on the ventilator
Review of Systems
General: Other (Per HPI)
Objective Data
Data Reviewed
Vital Signs / I&O / Oxygen:
Vital Signs
Temp Pulse Resp BP Pulse Ox
99.4 F 62 16 108/58 96
01/30/24 04:00 01/30/24 06:30 01/30/24 06:30 01/30/24 06:15 01/30/24 06:30
Intake and Output
01/29/24 01/30/24 01/31/24
06:59 06:59 06:59
Intake Total 2415.8 / 2445.5 2612.8 / 2612.8
Output Total 2089 / 2089
Balance 325.8 / 355.5 537.8 / 537.8
SaO2 [A/C] 96
SaO2 96
Nasal Cannula flow liters per 50
minute
Physical Exam
General: Respiratory Distress (negative), Comfortable, Chills (negative) and Sweats (negative)
HEENT: Normocephalic, Anicteric and Other (ETT in place)
Cardiovascular: Regular Rhythm and Peripheral Edema (Trace lower extremity edema bilaterally)
Respiratory: Wheeze (negative), Crackles (Left base), Rhonchi (Left hemithorax) and ET Tube (Mechanical breath sounds heard bilaterally)
GI: Soft, Distended (Abdominal obesity), Non Tender and Normal Bowel Sounds
Neurology: Lethargic (Sedated on the ventilator) and Other (Pupils 2 mm bilaterally and sluggish)
Skin: Warm, Good Color, Cyanosis (negative), Jaundice (negative) and Rash (n)
Labs/Micro/Reports
Lab Data
01/30/24 03:41
01/30/24 04:50
Laboratory Results
01/30/24
03:41
pH 7.52 H
pCO2 33
pO2 84
HCO3 26.9
O2 Delivery Level 70%
Microbiology
01/29/24 10:16 Tracheal Aspirate Gram Stain - Preliminary
01/24/24 05:30 Blood/Venous Blood Culture - Final
No Growth - Final Report
01/27/24 04:26 Urine Legionella Urinary Antigen - Final
Negative for Legionella pneumophila Serogroup 1 antigen.
A negative result does not rule out the possiblity of
Legionella infection due to other serogroups or species of
Legionella. Clinical correlation is recommended.
01/27/24 04:26 Urine Streptococcus pneumoniae Antigen (M - Final
Negative for Streptococcus pneumoniae antigen.
A negative result does not exclude infection with
Streptococcus pneumoniae. Clinical correlation is
recommended.
01/25/24 08:34 Endotracheal Respiratory Culture - Final
Usual Respiratory Jennifer
01/25/24 08:34 Endotracheal Gram Stain - Final
[2024-01-30 07:49] LABS: Platelets Checked Yes
[2024-01-30 07:51] LABS: Absolute Neutrophils -Man Diff 5.7 10^3/uL (1.4-6.5); Band Neutrophils 2 % (0-3); Lymphocytes 32 % (20-51); Segmented Neutrophils 43 % (42-75)
--- NOTE | 2024-01-30 07:51 | PN.DE.MGMTRT ---
Insulin Management
- -
01/30/2024: Diabetes Management Consult Follow up
63-year-old female who presented w/cough and SOB, due to pneumonia/COPD/mucous plugs on 01/24/24. She had worsening respiratory distress and was transferred to the ICU on the evening of 01/23 and intubated on 01/25/2024 due to Acute respiratory
failure with hypoxia and hypercapnia.
PMH: COPD, Asthma, Schizophrenia and T2DM. Chart review indicates she was taking Metformin 1000mg BID, Farxiga 10mg daily, Lantus 15 units @ HS and Apidra 12 units AC. A1C 6.8%, Cr 1.3, eGFR 46.21
Pt critically ill, intubated and sedated, history unobtainable, no family at bedside. Information obtained from chart review and patient nurse.
Was started on IV Steroids and Tube feeds, contributing to hyperglycemia.
01/26 Glucose trended up to 347, critical care glycemia protocol has been initiated, range of 4.5 to 8 units per hour.
01/29 Patient remains intubated, critically ill. Tube feeds resumed @ 50 per hour, (held for AM meds). Glucose range 125 to 201 on glycemic protocol requiring 6 to 18 units of insulin per hour. Will continue glycemic protocol at this time.
Will follow and assess for readiness to transition off drip to sq insulin. Discussed with patient nurse.
Diabetes History
- -
Type of Diabetes: 2 requiring insulin
Pre-Admission Diabetes Regimen
01/30/24 01/30/24
03:41 04:50
Creatinine Cancelled 0.8
Lab Results
Hemoglobin A1c 6.8 % (4.0-5.6) H 01/25/24 06:17
Insulin Pump Settings
IP Diabetes Regimen
01/29/24 01/29/24 01/29/24
08:09 09:11 10:24
Glucose
POC Glucose 173 H 173 H 189 H
11/20/24 11/20/24 11/20/24
11:30 12:51 13:43
Glucose
POC Glucose 189 H 198 H 201 H
01/29/24 01/29/24 01/29/24
15:14 16:07 17:10
Glucose
POC Glucose 211 H 216 H 155 H
01/29/24 01/29/24 01/29/24
18:08 19:04 20:00
Glucose
POC Glucose 136 H 118 H 102 H
01/29/24 01/29/24 01/29/24
20:57 21:57 22:58
Glucose
POC Glucose 116 H 99 125 H
01/29/24 01/30/24 01/30/24
23:56 02:00 03:41
Glucose Cancelled
POC Glucose 139 H 136 H
01/30/24 01/30/24 01/30/24
03:56 04:50 06:02
Glucose 125 H
POC Glucose 104 H 141 H
Patient Education
[2024-01-30 07:52] LABS: Eosinophils 3 % (0-6); Metamyelocytes 8 % (-); Monocytes 7 % (2-9); Myelocytes 5 % (-)
[2024-01-30 07:53] LABS: Anisocytosis 1+; Hypochromasia 1+; Macrocytosis 1+; Normal RBC Morphology No; Polychromasia Slight; Total Cells Counted 100
[2024-01-30] MEDS: VIBRAMYCIN 100 MG TUBE ×2 (08:03→21:00)
[2024-01-30] MEDS: FLUSH (NSS) 2 FLUSH IV (08:04)
[2024-01-30] MEDS: SYNTHROID 75 MCG TUBE (08:04)
[2024-01-30] MEDS: SOLU-MEDROL PF 40 MG IV (08:04)
[2024-01-30] MEDS: LASIX 40 MG PO (08:15)
[2024-01-30] MEDS: ROBITUSSIN 200 MG PO ×2 (08:15→12:29)
[2024-01-30] MEDS: DEPAKENE 500 MG TUBE ×3 (08:15→21:47)
[2024-01-30] MEDS: COLACE LIQUID 100 MG TUBE (08:15)
[2024-01-30] MEDS: MIRALAX 17 GRAMS TUBE (08:16)
[2024-01-30] MEDS: PREVACID 30 MG TUBE (08:16)
[2024-01-30] MEDS: PROZAC 20 MG TUBE (08:16)
[2024-01-30] MEDS: ZETIA 10 MG TUBE (08:16)
[2024-01-30] MEDS: VALTREX 500 MG TUBE (08:16)
[2024-01-30] MEDS: SENNA SYRUP 8.8 MG TUBE (08:17)
[2024-01-30 08:21] LABS: Glucose - Point of Care 115 mg/dl (70-99)
--- NOTE | 2024-01-30 09:00 | PTCARENOTE ---
Additional assessment- noted yesterday and this am- lower lip is swollen. No change from yesterday
--- NOTE | 2024-01-30 09:15 | PTCARENOTE ---
Rec'd pt at 0800 resting in bed on sport bed. Rec'd pt sedated on Diprivan at 15 mcg and Fentanyl at 100 mcg. Will open her eyes to verbal stimuli. Will intermittently nod. But does not follow other commands. Does ALEGRIA randomly. Bilat soft wrist
restraints in place for pt safety. RASS is -2. Skin is pale pink wm and dry. Respirs are intact on the vent. #8 Ett at the 23 cm sera repositioned in the center of the mouth. Vent - Resp therapy in at 0715 and peep decreased to 10 and then at 0810
decreased to 8. Currently tolerating with sats of 92-93%, Vent settings AC 16, tv 450, peep 8, fio2 40%. Does not add rate or volume. BS sl coarse on the L ant but otherwise fairly clear. Suctioned for small amt of tannish bloody tinged secretions.
+ cough and gag. Monitor SR. VS as documented. L radial a line site wnl. Zeroed and recalibrated. A line is postional but when waveform is good is within 10-15 mm/hg of cuff bP. + 2 gen anasarca. + pulses. KH SCD's in place. Abd is round/obese with
+ BS. [place] Orogastric tube in place-68 cm at the lip. Vital AF tube feeds on hold since 0700 for meds and currently turned back on at 50 ml/hr . H2o flush increased to 40 ml/hr. Meds given. Thermistor dorman in place for lay/yellow urine. Pt on
Glycemic protocol, Insulin gtt along with Fent and Prop infusing via L arm Midline cath. R arm Midline capped. R ac INt capped. Skin, mouth and checo care given. Repositioned. Percussion done via sport bed. On rotation currently.
[2024-01-30 09:23] LABS: Glucose - Point of Care 126 mg/dl (70-99)
--- NOTE | 2024-01-30 10:05 | W.PN.ID1 ---
Date of Service
Date of Service: January 30, 2024
Today's Communication
Continue meropenem.
Last day of doxycycline.
Assessment / Plan
# Multifocal pneumonia
# Acute on chronic hypoxemic respiratory failure, VDRF/intubated,
# Fever - resolved
# Leukocytosis due to steroid
# hx COPD on home 2LO2 (never smoked)
-bcx's neg to date
- urine legionella and pneumococcal antigen negative x 2
- sputum cx: usual respiratory jennifer
-repeat sputum cx pending
- MRSA screen negative
- s/p 5d cefepime without improvement
- Continue meropenem (d2)
-Last day of doxycycline (d7 of7)
- Follow clinically and oxygen status
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
Schizophrenia
Diabetes mellitus
COPD on 2L02
Pulmonary nodules
Hypertension
Hypothyroidism
Heart failure with preserved EF
BMI 36
Appendectomy
Cholecystectomy
Resides in senior living
Chief Complaint
-: Pneumonia
Subjective / Review of Systems
Remains on vent.
Vital Signs / Physical Exam
Vital Signs
Vital Signs
Temp Pulse Resp BP Pulse Ox
99.4 F 70 16 129/67 93
01/30/24 08:00 01/30/24 08:15 01/30/24 08:09 01/30/24 08:15 01/30/24 08:09
Physical Exam
Constitutional: Acutely Ill
Cardiovascular: Regular Rate and S1/S2
Pulmonary: Clear (anteriorly)
Gastrointestinal: Soft, Non Tender, Non Distended and Normal Bowel Sounds
Genito-Urinary: [place] and Clear Urine
Extremities: Edema
Objective Data
Lab Data
Lab Results
01/30/24 03:41
01/30/24 04:50
PT 14.8 Sec (11.4-14.6) H 01/24/24 04:57
INR 1.11 01/24/24 04:57
APTT 30.8 Sec (23.4-35.0) 01/24/24 04:57
Estimated Creat Clear 78 ml/min 01/30/24 04:50
Lactic Acid Cancelled 01/26/24 06:00
Total Bilirubin Cancelled 01/24/24 04:57
AST Cancelled 01/24/24 04:57
ALT Cancelled 01/24/24 04:57
Alkaline Phosphatase Cancelled 01/24/24 04:57
Most recent labs reviewed.
Micro Results:
01/29/24 10:16 Respiratory Culture - Pending
Tracheal Aspirate Gram Stain - Preliminary
01/24/24 05:30 Blood Culture - Final
Blood/Venous No Growth - Final Report
01/27/24 04:26 Legionella Urinary Antigen - Final
Urine Negative for Legionella pneumophila Serogroup 1 antigen.
A negative result does not rule out the possiblity of
Legionella infection due to other serogroups or species of
Legionella. Clinical correlation is recommended.
Streptococcus pneumoniae Antigen (M - Final
Negative for Streptococcus pneumoniae antigen.
A negative result does not exclude infection with
Streptococcus pneumoniae. Clinical correlation is
recommended.
01/25/24 08:34 Respiratory Culture - Final
Endotracheal Usual Respiratory Jennifer
Gram Stain - Final
01/24/24 22:34 MRSA Screen - Final
Nose No Methicillin Resistant Staphylococcus aureus isolated.
01/24/24 06:00 Legionella Urinary Antigen - Final
Urine Negative for Legionella pneumophila Serogroup 1 antigen.
A negative result does not rule out the possiblity of
Legionella infection due to other serogroups or species of
Legionella. Clinical correlation is recommended.
Streptococcus pneumoniae Antigen (M - Final
Negative for Streptococcus pneumoniae antigen.
A negative result does not exclude infection with
Streptococcus pneumoniae. Clinical correlation is
recommended.
01/24/24 06:29 Influenza Types A & B (SUSHANT) - Final
Nasal Swab Negative for Influenza A & B, NAAT
Negative results must be combined with clinical observations
and patient history.
Nucleic Acid Amplification test (NAAT)performed on the
[employer] platform.
01/29/24 CXR: Similar appearance of the opacities projecting over the left mid/lower lung and right lower lung, likely representing multifocal pneumonia/atelectasis.
01/28/[address]: No findings to suggest central pulmonary embolism. New bilateral lower lobe consolidations, left greater than right in comparison to recent prior 01/[address], likely representing combination of atelectasis and pneumonia.
01/26/24 CXR: Similar appearance of the left mid/lower lung opacity which likely represents pneumonia.
01/24/24 CXR: LARGE DENSE LEFT LOWER LOBE and LINGULAR AIRSPACE CONSOLIDATION which has markedly increased since 01/21/2024. Diagnostic possibilities are (1) severe left lower lobe pneumonia or (2) severe atelectasis in the left lower lobe and
lingula secondary to endobronchial mucous plugging. New mild right to left mediastinal shift consistent with volume loss in the left lung. Mild cardiomegaly.
01/21/24 CT chest: The appearance, stability and multiplicity of the multiple tiny bilateral pulmonary nodules dating back to 02/06/2023 indicate that they are benign
--- NOTE | 2024-01-30 10:11 | PTOTSP ---
Pt remians intubated and sedated and not appropriate to begin PT activity. Will sign off at this time. Reconsult at a later date if pt becomes appropriate to participate in PT activity.
[2024-01-30 10:14] LABS: Glucose - Point of Care 130 mg/dl (70-99)
--- NOTE | 2024-01-30 10:20 | PTCARENOTE ---
Pt turned- incont of stool. Skin care given. After turning sats dipped into the 83-85% range and remained there. Despite deep suctioning and repositioning remained in the 80's. 1000 Peep increased back to 12 and Fio2 to 50%, and per Dr. Davis rate
decreased at 1015 to 12. Currently breathing at rate of 12 on the vent. No other changes.
[2024-01-30 11:13] LABS: Glucose - Point of Care 170 mg/dl (70-99)
[2024-01-30 12:15] LABS: Glucose - Point of Care 202 mg/dl (70-99)
[2024-01-30] MEDS: FLUSH (NSS) 1 FLUSH IV ×2 (12:29→18:12)
--- NOTE | 2024-01-30 12:45 | PTCARENOTE ---
Over the past 2 hrs sats have recovered and pt back in the 92-94% range with sats. Continues to open eyes to command and even seemed to smile once and briefly nod but otherwise does not follow commands. Will however ALEGRIA on her own. On the vent has
not really taken breaths above the vent and after discussing with resp therapy will try to lower sedation to see if she can at least take a few breaths over the vent. Diprivan decreased at 1200 to 10 mcg and at 1245 Fentanyl to 75 mcg. Currently pt
breathing between 12-14 on the vent. Does not add any significant volume. VS as documented. A line continues to be positional. When waveform is good is within 10-15 mm/hg of cuff BP. Tolerating tube feeds. On lat rotation mattress. Mouth care given.
Assessment is otherwise unchanged.
--- NOTE | 2024-01-30 12:55 | W.PN.HOSP.TC ---
Today's Communication/Plan
-
Monitor vitals
See plan
Continue with meropenem
Increase tube free water flushes
Continue with insulin drip
Wean vent as tolerated
Wean sedation as tolerated
Assessment / Plan
Assessment / Plan
Physical Exam
General: Sedated Obese
HEENT: Moist mucous membranes, Pinpoint pupils b/l
Respiratory: Intubated Ronchi on auscultation
Cardiac: S1/S2 Tachycardia; No Murmur
GI: Soft, some distension noted, decreased bowel sounds
Musculoskeletal: No Clubbing, No Cyanosis and No Edema
Neuro: Sedated but responsive to physical stimuli nonresponsive to verbal
A/P: Patient is a 63y F with PMH significant for schizophrenia, DM-II and COPD who presents to ED complaining of cough and SOB.
Acute on Chronic Hypoxemic Respiratory failure
required intubation overnight 01/23-01/24
Wean vent as tolerated, vent management per railroad switchman. Currently has high oxygen requirements. Did well with suction. No plan for bronch yet. Persistent opacification
Currently on propofol, fentanyl, wean sedation as tolerable
- Suspect multifactorial with components of LLL pneumonia vs atelectasis vs pulmonary edema
- Baseline chronic O2 supplementation 2L at home
CT chest pe neg for PE
LLL Pneumonia vs Atelectasis Mucus plugging
Septic Shock (fever leukocytosis requiring pressor support)
- CXR with dense opacity in the L base concerning for Pneumonia vs Atelectasis mucus plugging
- Pulm eval appreciated Diamox provided with subsequent improvement Metabolic Alkalosis
- ID following, now on meropenem
- Supportive care including mucolytics, nebs, Chest PT
-weaned off Levophed
follow fever curve
Hypernatremia
Sodium 147 today, increased tube flushes
Severe Iron deficiency Anemia
-monitor H&H
-IV iron supplementation
Acute on Chronic HFpEF on admission; now appears euvolemic
- Weight is increased from prior noted baseline per our records.
- BNP significantly elevated from prior as well.
- Monitor I/Os, daily weights
- ECHO appreciated EF 60-65% compared with prior ECHO Feb 2022 mild aortic stenosis new finding.
- Cardio Eval appreciated home oral Lasix resumed with improvement in pressures weaned off pressors
Mild AMBERLY
improving
cont to monitor on diuresis as above
COPD without Acute Exacerbation
Aspiration precautions.
Eventual Speech evaluation (if patient amenable); currently intubated
Schizoaffective Disorder
- Continue current psychotropic med regimen.
Benign Hypertension
�- Stable.� Continue home med regimen.
DM-II
Steroid induced hyperglycemia
�- Stable.� Continue outpatient Farxiga. Hold metformin acutely.
- Continue basal : bolus insulin regimen.
�- SSI coverage as needed.
- A1C 6.8
Sugars uncontrolled, started insulin drip. Diabetes [employer]NAGER [employer] following
Hypothyroidism
�- Continue home T4 supplementation.
Obesity due to excess calories and insulin resistance.
�- Affects all aspects of care.
�- Encourage healthy diet and increased activity with goal of weight loss.
DVT Prophylaxis:� Lovenox
Code Status:� Full
I spent a total of 52 minutes with the patient or on the floor. More than 50% of this time involved counseling and coordination of care.
Anticipated Discharge: > 48 hours
Subjective/Interval History
-
Date of Service: January 30, 2024
Continues to be intubated
Objective Data
-
Labs:
Laboratory Results
01/30/24 01/30/24 01/30/24
03:41 03:41 04:50
WBC 12.8 H
Hgb 9.5 L
Hct 28.4 L
Plt Count 223
HCO3 26.9
Sodium Cancelled Cancelled 147 H
Potassium Cancelled 4.3
Chloride Cancelled 109 H
Carbon Dioxide Cancelled 27
BUN Cancelled 63 H
Creatinine Cancelled 0.8
Glucose Cancelled 125 H
Calcium Cancelled 8.9
Vital Signs:
Vital Signs
Temp Pulse Resp BP Pulse Ox
99.3 F 68 12 117/61 94
01/30/24 11:50 01/30/24 11:50 01/30/24 11:50 01/30/24 10:18 01/30/24 12:00
I&O
01/29/24 01/30/24 01/31/24
06:59 06:59 06:59
Intake Total 2415.8 / 2445.5 2612.8 / 2637.0 640.4 / 640.4
Output Total 2089 / 2089 2074 / 2074 745 / 745
Balance 325.8 / 355.5 537.8 / 562.0 -104.6 / -104.6
--- NOTE | 2024-01-30 13:00 | PTCARENOTE ---
Update given to Nursing staff- Kat at [facility]
[2024-01-30 13:18] LABS: Glucose - Point of Care 206 mg/dl (70-99)
--- NOTE | 2024-01-30 14:17 | CM ---
M following re: discharge planning.
Discussed in Rounds, reviewed pt's chart, met with pt. Per Rounds meeting, pt remains intubated and sedated, opens eyes to verbal but not following commands, B/L wrist restraints, continue supportive care.
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
CM spoke to [facility] school age program teacher rosalinda Tavarez (cell: [phone]) and she stated she as a school age program teacher is next of kin.
D/C plan: Uncertain at this time and will depend on pt's progress.
CM will follow with discharge plan updates as hospitalization progresses
[2024-01-30] MEDS: FERRLECIT 110 MG IV (14:18)
[2024-01-30 14:24] LABS: Glucose - Point of Care 189 mg/dl (70-99)
[2024-01-30 15:16] LABS: Glucose - Point of Care 179 mg/dl (70-99)
--- NOTE | 2024-01-30 15:30 | PTCARENOTE ---
Peep decreased to 10. Tolerating Prop at 10 mcg and Fent at 75 mcg. Sometimes will take 1-2 breaths over the vent and other times does not.
[2024-01-30 16:15] LABS: Glucose - Point of Care 177 mg/dl (70-99)
--- NOTE | 2024-01-30 17:00 | PTCARENOTE ---
Remains resting on sport bed. Opens eyes to voice or stimulation, then will tend to fall back to sleep. Will occasionally add 1-2 extra breaths, especially with stimulation. Suctioned. Tolerating AC 12, tv 450, peep 10 and Fio2 40% sats 95%. VS as
documented. Tolerating tube feeds. Incont of a mod amt of soft pasty brown stool. Repositoned. Skin, mouth and checo care given. Remains on rotation on the lat rotation mattress.
[2024-01-30 17:23] LABS: Glucose - Point of Care 154 mg/dl (70-99)
[2024-01-30] MEDS: LOVENOX 40 MG SC (18:07)
[2024-01-30 18:11] LABS: Glucose - Point of Care 131 mg/dl (70-99)
[2024-01-30 19:14] LABS: Glucose - Point of Care 133 mg/dl (70-99)
--- NOTE | 2024-01-30 19:15 | PTCARENOTE ---
Assumed care of pt. approx 190.
Remains Intubated/sedated, sedation gtt as follows:
-Diprivan: 10mcg
-Fent: 75 mcg
Hemodynamically stable, radial fito showing dampened waveform w/ narrow pulse pressure not correlating w/ NIBP, all titration adjustments will be made off of NIBP metrics.
TF + insulin gtt. Q1 hypoglycemic prot followed.
Neuro assessment unchanged from prev. shift.
[2024-01-30 20:18] LABS: Glucose - Point of Care 140 mg/dl (70-99)
[2024-01-30 21:13] LABS: Glucose - Point of Care 152 mg/dl (70-99)
[2024-01-30] MEDS: KLONOPIN 1.5 MG TUBE (21:46)
[2024-01-30] MEDS: ZYPREXA 10 MG TUBE (21:46)
[2024-01-30 22:05] LABS: Glucose - Point of Care 185 mg/dl (70-99)
[2024-01-30 23:19] LABS: Glucose - Point of Care 203 mg/dl (70-99)
--- NOTE | 2024-01-30 23:38 | PTCARENOTE ---
Remains on insulin gtt, sedation gtt same rate based upon RASS score of -1.
No adjustment to vent settings.
Arterial line D/C, removed, not correlating w/ NIBP, no blood return upon troubleshooting.
[2024-01-31] VITALS (24 sets, daily range): BP systolic 105–134; BP diastolic 56–65; BMI 36.1
[2024-01-31 00:29] LABS: Glucose - Point of Care 227 mg/dl (70-99)
[2024-01-31 01:13] LABS: Glucose - Point of Care 213 mg/dl (70-99)
[2024-01-31] MEDS: DIPRIVAN 100 IV ×4 (02:13→22:28)
[2024-01-31] MEDS: NOVOLIN R INSULIN INFUSION 100 IV ×2 (02:14→16:41)
[2024-01-31 02:16] LABS: Glucose - Point of Care 168 mg/dl (70-99)
[2024-01-31 03:29] LABS: Glucose - Point of Care 161 mg/dl (70-99)
--- NOTE | 2024-01-31 04:08 | PTCARENOTE ---
No change in pt. assessment.
[2024-01-31 04:21] LABS: Glucose - Point of Care 135 mg/dl (70-99)
[2024-01-31 04:31] LABS: Venous Blood Gas B.E. 3.2 mmol/L (-4 to +4); Venous Blood Gas HCO3 28.5 mmol/L (22-27); Venous Blood Gas O2 Sat % 99.3 %; Venous Blood Gas pCO2 46 mmHg (35-48); Venous Blood Gas pO2 124 mmHg (30-50)
[2024-01-31 04:35] LABS: Venous Blood Gas O2 Therapy VENT
[2024-01-31 04:56] LABS: Hematocrit 29.1 % (37.0-47.0); Hemoglobin 9.3 g/dL (12.0-16.0); Mean Corpuscular Hgb 34.6 pg (27.0-31.0); Mean Corpuscular Volume 108.2 fL (81.0-99.0); Mean Platelet Volume 10.4 fL (7.4-10.4); Platelet Count 215 10^3/uL (130-400); Red Blood Cell Count 2.69 10^6/uL (4.20-5.40); Red Cell Dist. Width 15.6 % (11.5-14.5); White Blood Cell Count 11.7 10^3/uL (4.8-10.8)
[2024-01-31 05:08] LABS: Blood Urea Nitrogen 59 mg/dl (7-17); Calcium 8.6 mg/dl (8.4-10.2); Carbon Dioxide 29 mmol/L (22-30); Chloride 107 mmol/L (98-107); Estimated Creatinine Clearance 78 ml/min; Glucose 120 mg/dl (70-99); Magnesium 2.2 mg/dl (1.6-2.3); Sodium 145 mmol/L (135-145); eGFR > 60.00
[2024-01-31 06:08] LABS: Glucose - Point of Care 144 mg/dl (70-99)
[2024-01-31] MEDS: STERILE WATER FOR INJECTION 10 ML IV (06:15)
[2024-01-31] MEDS: MERREM 500 MG IV (06:16)
[2024-01-31] MEDS: FLOVENT 110 MCG INHALER 4 PUFF INH ×2 (07:26→20:42)
[2024-01-31] MEDS: DUONEB 3 ML INH ×4 (07:26→20:39)
--- NOTE | 2024-01-31 07:34 | W.PN.INTV ---
Today's Communication / Plan
Recommendations
Decrease FiO2 and decrease PEEP
Consider spontaneous breathing trial
Check procalcitonin
Possible discontinuation of antibiotics or changed to Zosyn due to meropenem/valproic acid interaction
Assessment
-
63-year-old female with a history of underlying schizophrenia, diabetes, asthma, presented with cough and shortness of breath noted mucous plugs and pneumonia-pulmonary consulted for pneumonia/COPD/mucous plugs 01/24/24. She had worsening
respiratory distress and was transferred to the ICU on the evening of 01/23 and intubated on 01/25/2024.
Impression:
Acute respiratory failure with hypoxia + hypercapnia now on mechanical ventilation
(intubated 01/25/2024)
Extubated
Metabolic alkalosis due to chronic hypercapnia with CO2 now being acutely blown off s/p intubation
Left lower lobe pneumonia-nosocomial
Shock - due to sedation in setting of sepsis - shock state now resolved
Aspiration risk.
CHF-preserved EF with normal RV size and function
Mild aortic stenosis
Asthma with acute exacerbation due to pneumonia
Leukocytosis - now resolved
Anemia - stable
DM type II c/b hyperglycemia
AMBERLY (baseline Cr 0.8) - worsening
History of mild restrictive lung disease (post�bronchodilator FVC: 69% / 2.04 L via spirometry on 12/12/2020)
Conditions present prior to admission:
Bipolar.
Schizophrenia.
Borderline personality disorder
Diabetes.
Hypertension.
Hypothyroid.
Obesity.
COPD/asthma overlap.
CIELO on CPAP
Anemia.
GERD.
Chronic heart failure, preserved EF.
Appendectomy. Cholecystectomy
Plan
Critically ill sedated on a ventilator
Ventilator settings reviewed-FiO2 weaned to 0.4 and PEEP weaned to 10
Airway pressures reviewed and adequate
Sedation vacations continue
If able to wean PEEP to 5-6 then try spontaneous breathing trial-reviewed with [facility]
ABG 01/28/2024--40/70/7.44
ABG 01/29/2024-40/73/7.43
ABG 01/30/24-30 3/84/7.52-decrease minute ventilation-rate decreased to 12
VBG 01/31/24-40 6/124/7.4
Chest x-ray 01/31/2024-improvement in right lower lobe pneumonia, no change in what represents pneumonia in the mid to lower left lungs
CT chest 01/28/2024-summarized below
VAP prevention protocol
Continue with nebulizers-DuoNebs
Tdcdaknb-Pnmn-Hsneqd 40 mg IV every 12 hours-decreased to every 24 hours-no change
Respiratory therapy due to large-volume saline lavage and suctioning
If difficulties oxygenating then right side down to help with ventilation/perfusion matching
Bronchoscopy if mucous plugging-hold off for now
Mucolytic's
Diuresis continues as tolerated-even to slightly positive I's and O's last 24 hours
Monitor renal function, electrolytes, intake/output, lower extremity edema and weight
Replace electrolytes as needed
Cardiology following-correspondence reviewed-signed off 01/25/2024
Cultures reviewed
Urine Legionella and streptococcal antigens negative
Sputum culture 01/25/2024-usual respiratory jennifer
MRSA screen negative
Influenza negative
Blood cultures no growth
Empiric antibiotics continue-continue meropenem, last dose of doxycycline 01/30/2024
Infectious disease following--reviewed with them personally
Check procalcitonin-consideration towards antibiotic discontinuation
There is concern of interaction between meropenem and valproic acid-consideration towards discontinuation or change to Zosyn
Follow leukocytosis
Follow hemoglobin and platelet count
Transfuse as needed
Monitor blood sugar
Insulin drip
Diabetic nurse practitioner following-correspondence reviewed
DVT prophylaxis-on Lovenox.
GI prophylaxis-on pantoprazole while on the ventilator and hypotensive
Nutrition - continue tube feeds
Bedside range of motion, eventual physical therapy
Critical care statement: A total of 45 minutes of critical care time was provided for this patient today. This includes management of unstable vital signs, evaluation of the patient at bedside, reviewing the patient's pertinent medical records
including radiographs, ventilator management, pressor management, microbiology, laboratory evaluations, and discussion with primary team, consultants, pharmacy, nutrition, physical therapy, case management, charge nurse, critical care nursing, and
respiratory therapy.
Studies:
Chest x-ray 01/28/2024-left basilar opacification without change
Chest x-ray 01/29/2024-no significant changes with multifocal pneumonia and atelectasis
CT chest 01/21/24-multiple pulmonary nodules stable dating back to 02/06/23-over 10 nodules, less than [address] chest 01/28/2024-no central pulmonary emboli, bilateral lower lobe consolidations left greater than right likely representing atelectasis and pneumonia
Chest x-ray 01/24/24-large dense lower lobe and lingular airspace disease consistent with pneumonia
CXR 01/25/2024:
Endotracheal tube tip projects in mid thoracic trachea. Nasoenteric tube courses below the diaphragm, tip is excluded by collimation.
Unchanged left mid/lower lung opacity which may represent pneumonia.
Subjective Dataa
Subjective Data
Date of Service:
Date of Service: January 31, 2024
Chief Complaint: Length Control Tester Follow Up and Pulmonary Follow Up
Subjective:
FiO2 weaned to 0.4. No significant secretions, still marginal saturations especially when she is turned she desaturates
Review of Systems
General: Unobtainable - Sedation
Objective Data
Data Reviewed
Vital Signs / I&O / Oxygen:
Vital Signs
Temp Pulse Resp BP Pulse Ox
99.1 F 67 12 115/58 94
01/31/24 06:00 01/31/24 06:00 01/31/24 06:00 01/31/24 06:00 01/31/24 06:00
Intake and Output
01/30/24 01/31/24 02/01/24
06:59 06:59 06:59
Intake Total 2612.8 / 2637.0 2392.9 / 2392.9
Output Total 5 / 2074 2190 / 2190
Balance 537.8 / 562.0 202.9 / 202.9
SaO2 [A/C] 99
SaO2 94
Nasal Cannula flow liters per 50
minute
Physical Exam
General: Respiratory Distress (negative), Comfortable, Chills (negative) and Sweats (negative)
HEENT: Normocephalic, Anicteric and Other (ETT in place)
Cardiovascular: Regular Rhythm and Peripheral Edema (Trace lower extremity edema bilaterally)
Respiratory: Wheeze (negative), Crackles (Left base), Rhonchi (Left hemithorax) and ET Tube (Mechanical breath sounds heard bilaterally)
GI: Soft, Distended (Abdominal obesity), Non Tender and Normal Bowel Sounds
Neurology: Lethargic (Sedated on the ventilator) and Other (Pupils 2 mm bilaterally and sluggish)
Skin: Warm, Good Color, Cyanosis (negative), Jaundice (negative) and Rash (n)
Labs/Micro/Reports
Lab Data
01/31/24 04:14
01/31/24 04:14
Microbiology
01/29/24 10:16 Tracheal Aspirate Respiratory Culture - Preliminary
Usual Respiratory Jennifer
01/29/24 10:16 Tracheal Aspirate Gram Stain - Preliminary
01/24/24 05:30 Blood/Venous Blood Culture - Final
No Growth - Final Report
01/27/24 04:26 Urine Legionella Urinary Antigen - Final
Negative for Legionella pneumophila Serogroup 1 antigen.
A negative result does not rule out the possiblity of
Legionella infection due to other serogroups or species of
Legionella. Clinical correlation is recommended.
01/27/24 04:26 Urine Streptococcus pneumoniae Antigen (M - Final
Negative for Streptococcus pneumoniae antigen.
A negative result does not exclude infection with
Streptococcus pneumoniae. Clinical correlation is
recommended.
[2024-01-31 07:36] LABS: Absolute Neutrophils -Man Diff 5.1 10^3/uL (1.4-6.5); Band Neutrophils 4 % (0-3); Eosinophils 6 % (0-6); Lymphocytes 33 % (20-51); Metamyelocytes 7 % (-); Monocytes 7 % (2-9); Myelocytes 3 % (-); Platelets Checked Yes; Segmented Neutrophils 40 % (42-75)
[2024-01-31 07:37] LABS: Anisocytosis 1+; Hypochromasia 1+; Normal RBC Morphology No; Polychromasia 1+; Total Cells Counted 100
[2024-01-31] MEDS: DEPAKENE 500 MG TUBE ×3 (07:55→22:27)
[2024-01-31] MEDS: SOLU-MEDROL PF 40 MG IV (07:55)
[2024-01-31] MEDS: SYNTHROID 75 MCG TUBE (07:56)
[2024-01-31] MEDS: VALTREX 500 MG TUBE (07:56)
[2024-01-31] MEDS: MIRALAX 17 GRAMS TUBE (07:56)
[2024-01-31] MEDS: VIBRAMYCIN 100 MG TUBE (07:56)
[2024-01-31] MEDS: PROZAC 20 MG TUBE (07:56)
[2024-01-31] MEDS: LASIX 40 MG PO (07:56)
[2024-01-31] MEDS: ZETIA 10 MG TUBE (07:56)
[2024-01-31] MEDS: PREVACID 30 MG TUBE (07:56)
[2024-01-31 08:07] LABS: Glucose - Point of Care 125 mg/dl (70-99)
--- NOTE | 2024-01-31 08:46 | W.PN.ID1 ---
Addendum entered and electronically signed by Ana Lilia Chan MD 01/31/24 11:40:
procal normalized
suspect previous mild elevation due to AMBERLY and accumulation
stopped meropenem
shared my concerns re: likely subtherapeutic valproic acid level with the medical team and pharmacy; does not seem to have had a clinical impact and patient does not have h/o seizure disorder
AW
Original Note:
Date of Service
Date of Service: January 31, 2024
Today's Communication
- viral causes of pneumonia on my differential, recheck procal now that renal function normalized, if normal or decreased by 70% will stop antibiotics. Minimally elevated procal 01/25 in the setting of AMBERLY may have been caused by AMBERLY rather than
bacterial infection
- Continue meropenem (d3) for the moment, I am concerned with the interaction between carbapenems and valproic acid, pending procalcitonin level will either stop meropenem or switched to zosyn; discussed with clinical pharmacy
- completed 7 day doxycycline course - stopped
Assessment / Plan
# Multifocal pneumonia
# Acute on chronic hypoxemic respiratory failure, VDRF/intubated,
# Fever - resolved
# Leukocytosis due to steroid
# hx COPD on home 2LO2 (never smoked)
# Schizoprenia on Valproic Acid, no known seizure disorder
- bcx's neg to date
- urine legionella and pneumococcal antigen negative x 2
- 01/24 sputum cx: usual respiratory jennifer
- 01/28 repeat sputum cx: usual resp jennifer
- MRSA screen negative
- remains on methylprednisolone - management per pulm
- viral causes of pneumonia on my differential, recheck procal now that renal function normalized, if normal or decreased by 70% will stop antibiotics. Minimally elevated procal 01/25 in the setting of AMBERLY may have been caused by AMBERLY rather than
bacterial infection
- Continue meropenem (d3) for the moment, I am concerned with the interaction between carbapenems and valproic acid, pending procalcitonin level will either stop meropenem or switched to zosyn; discussed with clinical pharmacy
- completed 7 day doxycycline course - stopped
- Follow clinically and oxygen status; patient remains critically ill at this time though with notable interval improvement
# Conditions REPAIRER
Schizophrenia
Diabetes mellitus
COPD on 2L02
Pulmonary nodules
Hypertension
Hypothyroidism
Heart failure with preserved EF
BMI 36
Appendectomy
Cholecystectomy
Resides in assisted
Chief Complaint
-: Pneumonia and Other (COPD)
Subjective / Review of Systems
afebrile
bp stable off of pressors; a line dc'd
remains on vent at 40% FiO2
Vital Signs / Physical Exam
Vital Signs
Vital Signs
Temp Pulse Resp BP Pulse Ox
99.3 F 72 12 122/62 93
01/31/24 07:36 01/31/24 08:30 01/31/24 08:30 01/31/24 08:00 01/31/24 08:30
Physical Exam
Constitutional: No Acute Distress and Chronically Ill
Cardiovascular: Regular Rate and S1/S2; Negative Murmur or Rub
Pulmonary: Clear and Symmetric; Negative Wheezes or Rales
Gastrointestinal: Soft, Non Tender, Non Distended and Normal Bowel Sounds
Genito-Urinary: Clear Urine
Skin: Warm and Dry; Negative Rash or Jaundice
Neurological: Negative Awake
Objective Data
Lab Data
Lab Results
01/31/24 04:14
01/31/24 04:14
PT 14.8 Sec (11.4-14.6) H 01/24/24 04:57
INR 1.11 01/24/24 04:57
APTT 30.8 Sec (23.4-35.0) 01/24/24 04:57
Estimated Creat Clear 78 ml/min 01/31/24 04:14
Lactic Acid Cancelled 01/26/24 06:00
Total Bilirubin Cancelled 01/24/24 04:57
AST Cancelled 01/24/24 04:57
ALT Cancelled 01/24/24 04:57
Alkaline Phosphatase Cancelled 01/24/24 04:57
Most recent labs reviewed.
Micro Results:
01/29/24 10:16 Respiratory Culture - Preliminary
Tracheal Aspirate Usual Respiratory Jennifer
Gram Stain - Preliminary
01/24/24 05:30 Blood Culture - Final
Blood/Venous No Growth - Final Report
01/27/24 04:26 Legionella Urinary Antigen - Final
Urine Negative for Legionella pneumophila Serogroup 1 antigen.
A negative result does not rule out the possiblity of
Legionella infection due to other serogroups or species of
Legionella. Clinical correlation is recommended.
Streptococcus pneumoniae Antigen (M - Final
Negative for Streptococcus pneumoniae antigen.
A negative result does not exclude infection with
Streptococcus pneumoniae. Clinical correlation is
recommended.
01/25/24 08:34 Respiratory Culture - Final
Endotracheal Usual Respiratory Jennifer
Gram Stain - Final
01/24/24 22:34 MRSA Screen - Final
Nose No Methicillin Resistant Staphylococcus aureus isolated.
01/24/24 06:00 Legionella Urinary Antigen - Final
Urine Negative for Legionella pneumophila Serogroup 1 antigen.
A negative result does not rule out the possiblity of
Legionella infection due to other serogroups or species of
Legionella. Clinical correlation is recommended.
Streptococcus pneumoniae Antigen (M - Final
Negative for Streptococcus pneumoniae antigen.
A negative result does not exclude infection with
Streptococcus pneumoniae. Clinical correlation is
recommended.
01/24/24 06:29 Influenza Types A & B (SUSHANT) - Final
Nasal Swab Negative for Influenza A & B, NAAT
Negative results must be combined with clinical observations
and patient history.
Nucleic Acid Amplification test (NAAT)performed on the
[employer] platform.
01/29/24 CXR: Similar appearance of the opacities projecting over the left mid/lower lung and right lower lung, likely representing multifocal pneumonia/atelectasis.
01/28/[address]: No findings to suggest central pulmonary embolism. New bilateral lower lobe consolidations, left greater than right in comparison to recent prior 01/[address], likely representing combination of atelectasis and pneumonia.
01/26/24 CXR: Similar appearance of the left mid/lower lung opacity which likely represents pneumonia.
01/24/24 CXR: LARGE DENSE LEFT LOWER LOBE and LINGULAR AIRSPACE CONSOLIDATION which has markedly increased since 01/21/2024. Diagnostic possibilities are (1) severe left lower lobe pneumonia or (2) severe atelectasis in the left lower lobe and
lingula secondary to endobronchial mucous plugging. New mild right to left mediastinal shift consistent with volume loss in the left lung. Mild cardiomegaly.
01/21/24 CT chest: The appearance, stability and multiplicity of the multiple tiny bilateral pulmonary nodules dating back to 02/06/2023 indicate that they are benign
Care Review
Plan reviewed with: Physician (Dr Yap, Uyen Finley PharmD - antibiotics)
--- NOTE | 2024-01-31 08:53 | PTCARENOTE ---
received patient, assessment as noted. RASS -2, pt opens eyes to touch but not following, B/L wrist restraints, lightly squeezed my hand but followed no other commands, +cough, weak gag, pupils 2, NSR with PACs on the monitor, + pulses, +2 anasarca,
B/L SCD's, #8 ETT 23 @ lip, AC 12/450/40/10 SpO2 93%, coarse throughout, OGT 68cm @ lip, TF Vital AF 50ml/40ml H2O flush, round obese BSx4 hyperactive, thermistor dorman yellow lay output, sport bed percussion per order. L and R midline, 22G RAC,
prop, 20mcg, fent 75mcg, insulin gtt 4units/hr, glycemic protocol.
[2024-01-31] MEDS: SUBLIMAZE 100 IV (09:05)
--- NOTE | 2024-01-31 09:25 | PN.DE.MGMTRT ---
Insulin Management
- -
01/31/2024: Diabetes Management Consult Follow up
63-year-old female who presented w/cough and SOB, due to pneumonia/COPD/mucous plugs on 01/24/24. She had worsening respiratory distress and was transferred to the ICU on the evening of 01/23 and intubated on 01/25/2024 due to Acute respiratory
failure with hypoxia and hypercapnia.
PMH: COPD, Asthma, Schizophrenia and T2DM. Chart review indicates she was taking Metformin 1000mg BID, Farxiga 10mg daily, Lantus 15 units @ HS and Apidra 12 units AC. A1C 6.8%, Cr 1.3, eGFR 46.21
Pt critically ill, intubated and sedated, history unobtainable, no family at bedside. Information obtained from chart review and patient nurse.
Was started on IV Steroids and Tube feeds, contributing to hyperglycemia.
01/30 Patient remains intubated, critically ill. Tube feeds resumed @ 50 per hour, (held for AM meds). Glucose range 125 to 201 on glycemic protocol requiring 6 to 18 units of insulin per hour. Will continue glycemic protocol at this time.
Will follow and assess for readiness to transition off drip to sq insulin. Discussed with patient nurse.
Diabetes History
- -
Type of Diabetes: 2 requiring insulin
Pre-Admission Diabetes Regimen
01/31/24
04:14
Creatinine 0.8
Lab Results
Hemoglobin A1c 6.8 % (4.0-5.6) H 01/25/24 06:17
Insulin Pump Settings
IP Diabetes Regimen
01/30/24 01/30/24 01/30/24
10:03 11:02 12:03
Glucose
POC Glucose 130 H 170 H 202 H
01/30/24 01/30/24 01/30/24
13:06 14:13 15:05
Glucose
POC Glucose 206 H 189 H 179 H
01/30/24 01/30/24 01/30/24
16:04 17:12 17:59
Glucose
POC Glucose 177 H 154 H 131 H
01/30/24 01/30/24 01/30/24
19:03 20:07 21:02
Glucose
POC Glucose 133 H 140 H 152 H
01/30/24 01/30/24 01/31/24
21:54 23:08 00:18
Glucose
POC Glucose 185 H 203 H 227 H
01/31/24 01/31/24 01/31/24
01:01 02:05 03:18
Glucose
POC Glucose 213 H 168 H 161 H
01/31/24 01/31/24 01/31/24
04:10 04:14 05:56
Glucose 120 H
POC Glucose 135 H 144 H
01/31/24
07:56
Glucose
POC Glucose 125 H
Patient Education
[2024-01-31 10:13] LABS: Glucose - Point of Care 161 mg/dl (70-99)
--- NOTE | 2024-01-31 10:41 | W.PN.INTV ---
Today's Communication / Plan
Recommendations
TODAY - Saturday01/31/2024
NEURO:
Pt Continue to be Sedated
Continue Multimodal Pain Control Analgesia With - Fentanyl/100 & Propofol/20
RESPI:
Persistent L-Basilar Opacification with associated Ipsilateral Mid/Lower Lobe Atelectasis
Mild Improvement on R-Lobe Patchy Opacifications
Still Ongoing Bilateral Pulmonary Disease Process of Unknown Etiology - Suspected Multifocal Bacterial Pneumonia Vs. Possible Viral Pneumonia (Per ID Team this AM)
Cultures continue to be negative
F/U on Ordered Procalcitonin Levels
Possible ABX Discontinuation (Procal Level Dependent / Suspected Viral Pneumonia - Per ID Team this AM)
Continue Mechanical Ventilation
Continue to Closely Monitor Vent Parameters
Continue to Slowly Wing-Off PEP
Repeat ABGs Later on If Considered Necessary
Continue Conservative Respiratory Management / Respiratory Supportive Measures (Saline Lavages) by Respiratory Team
GENERAL:
Continue Solumedrol QD
Continue on Glycemic Control
Continue to Closely Monitor Glucose Level
Continue IV ABXs - Meropenem (Procal Level Dependent)
Continue to Follow ID Recommendations
Cont. GI Ppx
Cont. DVT Ppx
Assessment
-
63-year-old female with a history of underlying schizophrenia, diabetes, asthma, presented with cough and shortness of breath noted mucous plugs and pneumonia-pulmonary consulted for pneumonia/COPD/mucous plugs 01/24/24. She had worsening
respiratory distress and was transferred to the ICU on the evening of 01/23 and intubated on 01/25/2024.
Impression:
Acute respiratory failure with hypoxia + hypercapnia now on mechanical ventilation
(intubated 01/25/2024)
Extubated
Metabolic alkalosis due to chronic hypercapnia with CO2 now being acutely blown off s/p intubation
Left lower lobe pneumonia-nosocomial
Shock - due to sedation in setting of sepsis - shock state now resolved
Aspiration risk.
CHF-preserved EF with normal RV size and function
Mild aortic stenosis
Asthma with acute exacerbation due to pneumonia
Leukocytosis - now resolved
Anemia - stable
DM type II c/b hyperglycemia
AMBERLY (baseline Cr 0.8) - worsening
History of mild restrictive lung disease (post�bronchodilator FVC: 69% / 2.04 L via spirometry on 12/12/2020)
Conditions present prior to admission:
Bipolar.
Schizophrenia.
Borderline personality disorder
Diabetes.
Hypertension.
Hypothyroid.
Obesity.
COPD/asthma overlap.
CIELO on CPAP
Anemia.
GERD.
Chronic heart failure, preserved EF.
Appendectomy. Cholecystectomy
Plan
The patient continues to be critically ill on a ventilator
Ventilator settings reviewed-FiO2 weaned to 0.4 and PEEP weaned to 8
Airway pressures reviewed and adequate
Sedation vacations continue
If able to wean PEEP to 5 then try spontaneous breathing trial-reviewed with SPORTS CLERK
ABG 01/28/2024--40/70/7.44
ABG 01/29/2024-40/73/7.43
ABG 01/30/24-30 3/7.52-decrease minute ventilation-rate decreased to 12
Chest x-ray 01/28/2024-left basilar opacification without change
Chest x-ray 01/29/2024-no significant changes with multifocal pneumonia and atelectasis
CT chest 01/28/2024-no central pulmonary emboli, bilateral lower lobe consolidations left greater than right likely representing atelectasis and pneumonia
VAP prevention protocol
DuoNebs continue
Sxrzskiv-Dzlz-Ayibkn 40 mg IV every 12 hours-decreased to every 24 hours-no change
Respiratory therapy due to large-volume saline lavage and suctioning
If difficulties oxygenating then right side down to help with ventilation/perfusion matching
Bronchoscopy if mucous plugging-hold off for now
Mucolytic's
Diuresis continues as tolerated-even I's and O's last 24 hours
Monitor renal function, electrolytes, intake/output, lower extremity edema and weight
Replace electrolytes as needed
Cardiology following-correspondence reviewed-signed off 01/25/2024
Cultures reviewed
Urine Legionella and streptococcal antigens negative
Sputum culture 01/25/2024-usual respiratory jennifer
MRSA screen negative
Influenza negative
Blood cultures no growth
Empiric antibiotics continue-continue meropenem, last dose of doxycycline 01/30/2024
Infectious disease following-correspondence reviewed
Follow leukocytosis
Follow hemoglobin and platelet count
Transfuse as needed
Monitor blood sugar
Insulin drip
Diabetic nurse practitioner following-correspondence reviewed
DVT prophylaxis-on Lovenox.
GI prophylaxis-on pantoprazole while on the ventilator and hypotensive
Nutrition - continue tube feeds
Bedside range of motion, eventual physical therapy
Critical care statement: A total of 42 minutes of critical care time was provided for this patient today. This includes management of unstable vital signs, evaluation of the patient at bedside, reviewing the patient's pertinent medical records
including radiographs, ventilator management, pressor management, microbiology, laboratory evaluations, and discussion with primary team, consultants, pharmacy, nutrition, physical therapy, case management, charge nurse, critical care nursing, and
respiratory therapy.
Studies:
CT chest 01/21/24-multiple pulmonary nodules stable dating back to 02/06/23-over 10 nodules, less than 2 mm
Chest x-ray 01/24/24-large dense lower lobe and lingular airspace disease consistent with pneumonia
CXR 01/25/2024:
Endotracheal tube tip projects in mid thoracic trachea. Nasoenteric tube courses below the diaphragm, tip is excluded by collimation.
Unchanged left mid/lower lung opacity which may represent pneumonia.
Subjective Dataa
Subjective Data
Date of Service:
Date of Service: January 31, 2024
Patient was seen and evaluated at bedside this morning with the attending physician and the ICU team, during morning rounds.
In NAD / AAOx0 / Sedated
Continue On Mechanical Ventilation
Minimal Respiratory Secretions
Hemodynamically Stable
NO Acute Events O/N
Persistent L-Basilar Opacification with associated Ipsilateral Mid/Lower Lobe Atelectasis
Mild Improvement on R-Lobe Patchy Opacifications
Still Ongoing Bilateral Pulmonary Disease Process of Unknown Etiology -
Suspected Multifocal Bacterial Pneumonia Vs. Possible Viral Pneumonia (Per ID Team this AM)
Chief Complaint: Mold Filling Operator Follow Up and Pulmonary Follow Up
Objective Data
Data Reviewed
Vital Signs / I&O / Oxygen:
Vital Signs
Temp Pulse Resp BP Pulse Ox
37.4 C 70 13 121/65 91
01/31/24 07:36 01/31/24 10:00 01/31/24 10:00 01/31/24 10:00 01/31/24 10:00
Intake and Output
01/30/24 01/31/24 02/01/24
06:59 06:59 06:59
Intake Total 2612.8 / 2637.0 2392.9 / 2615.8 560.6 / 560.6
Output Total 2075 / 2075 2190 / 2240 550 / 550
Balance 537.8 / 562.0 202.9 / 375.8 10.6 / 10.6
SaO2 [A/C] 93
SaO2 91
Nasal Cannula flow liters per 50
minute
Physical Exam
General: Respiratory Distress (negative), Comfortable, Chills (negative) and Sweats (negative)
HEENT: Normocephalic, Anicteric and Other (ETT in place)
Cardiovascular: Regular Rhythm and Peripheral Edema (Trace lower extremity edema bilaterally)
Respiratory: Wheeze (negative), Crackles (Left base), Rhonchi (Left hemithorax) and ET Tube (Mechanical breath sounds heard bilaterally)
GI: Soft, Distended (Abdominal obesity), Non Tender and Normal Bowel Sounds
Neurology: Lethargic (Sedated on the ventilator) and Other (Pupils 2 mm bilaterally and sluggish)
Skin: Warm, Good Color, Cyanosis (negative), Jaundice (negative) and Rash (n)
Labs/Micro/Reports
Lab Data
01/31/24 04:14
01/31/24 04:14
Microbiology
01/29/24 10:16 Tracheal Aspirate Respiratory Culture - Preliminary
Usual Respiratory Jennifer
01/29/24 10:16 Tracheal Aspirate Gram Stain - Preliminary
01/24/24 05:30 Blood/Venous Blood Culture - Final
No Growth - Final Report
01/27/24 04:26 Urine Legionella Urinary Antigen - Final
Negative for Legionella pneumophila Serogroup 1 antigen.
A negative result does not rule out the possiblity of
Legionella infection due to other serogroups or species of
Legionella. Clinical correlation is recommended.
01/27/24 04:26 Urine Streptococcus pneumoniae Antigen (M - Final
Negative for Streptococcus pneumoniae antigen.
A negative result does not exclude infection with
Streptococcus pneumoniae. Clinical correlation is
recommended.
[2024-01-31 10:43] LABS: Procalcitonin 0.06 ng/ml (0.0-0.25)
[2024-01-31 11:08] LABS: Glucose - Point of Care 163 mg/dl (70-99)
[2024-01-31 12:09] LABS: Glucose - Point of Care 161 mg/dl (70-99)
--- NOTE | 2024-01-31 12:28 | PTCARENOTE ---
After 1200 turn, OGT noted to be partially removed and not taped to ETT. Tube removed and after consult with Director Of Intercollegiate Athletics, Dobhoff placed without issue.
--- NOTE | 2024-01-31 12:31 | CM ---
CM following re: discharge planning.
Discussed in Rounds, reviewed pt's chart, met with pt. Per Rounds meeting, pt remains intubated and sedated, opens eyes to verbal but not following commands, B/L wrist restraints, continue supportive care.
Patient lives at [facility] [phone] and pt is independent in all areas MULTIGRAPHER, has home O2 and requires 2L NC at baseline.
[facility] program engagement director rosalinda Tavarez (cell: [phone]) is next of kin.
D/C plan: Uncertain at this time and will depend on pt's progress.
CM will follow with discharge plan updates as hospitalization progresses
--- NOTE | 2024-01-31 13:25 | W.PN.HOSP.TC ---
Today's Communication/Plan
-
Monitor vital signs see plan
Now off antibiotics
Wean vent as tolerated
Wean sedation as tolerated
Monitor sodium
Assessment / Plan
Assessment / Plan
Physical Exam
General: Sedated Obese
HEENT: Moist mucous membranes, Pinpoint pupils b/l
Respiratory: Intubated Ronchi on auscultation
Cardiac: S1/S2 Tachycardia; No Murmur
GI: Soft, some distension noted, decreased bowel sounds
Musculoskeletal: No Clubbing, No Cyanosis and No Edema
Neuro: Sedated but responsive to physical stimuli nonresponsive to verbal
A/P: Patient is a 63y F with PMH significant for schizophrenia, DM-II and COPD who presents to ED complaining of cough and SOB.
Acute on Chronic Hypoxemic Respiratory failure
required intubation overnight 01/23-01/24
Wean vent as tolerated, vent management per machine plaster mixer. Currently has high oxygen requirements. Did well with suction. No plan for bronch yet. Persistent opacification
Currently on propofol, fentanyl, wean sedation as tolerable
- Suspect multifactorial with components of LLL pneumonia vs atelectasis vs pulmonary edema
- Baseline chronic O2 supplementation 2L at home
CT chest pe neg for PE
LLL Pneumonia vs Atelectasis Mucus plugging
Septic Shock (fever leukocytosis requiring pressor support)
- CXR with dense opacity in the L base concerning for Pneumonia vs Atelectasis mucus plugging
- Pulm eval appreciated Diamox provided with subsequent improvement Metabolic Alkalosis
- ID following, dc further abx, procal normalized
- Supportive care including mucolytics, nebs, Chest PT
-weaned off Levophed
follow fever curve
Hypernatremia
Sodium 145 today, increased tube flushes
Severe Iron deficiency Anemia
-monitor H&H
-IV iron supplementation
Acute on Chronic HFpEF on admission; now appears euvolemic
- Weight is increased from prior noted baseline per our records.
- BNP significantly elevated from prior as well.
- Monitor I/Os, daily weights
- ECHO appreciated EF 60-65% compared with prior ECHO Feb 2022 mild aortic stenosis new finding.
- Cardio Eval appreciated home oral Lasix resumed with improvement in pressures weaned off pressors
Mild AMBERLY
improving
cont to monitor on diuresis as above
COPD without Acute Exacerbation
Aspiration precautions.
Eventual Speech evaluation (if patient amenable); currently intubated
Schizoaffective Disorder
- Continue current psychotropic med regimen.
Benign Hypertension
�- Stable.� Continue home med regimen.
DM-II
Steroid induced hyperglycemia
�- Stable.� Continue outpatient Farxiga. Hold metformin acutely.
- Continue basal : bolus insulin regimen.
�- SSI coverage as needed.
- A1C 6.8
Sugars uncontrolled, started insulin drip. Diabetes GAMING DEALER following
Hypothyroidism
�- Continue home T4 supplementation.
Obesity due to excess calories and insulin resistance.
�- Affects all aspects of care.
�- Encourage healthy diet and increased activity with goal of weight loss.
DVT Prophylaxis:� Lovenox
Code Status:� Full
I spent a total of 51 minutes with the patient or on the floor. More than 50% of this time involved counseling and coordination of care.
Anticipated Discharge: > 48 hours
Subjective/Interval History
-
Date of Service: January 31, 2024
intubated
Objective Data
-
Labs:
Laboratory Results
01/31/24
04:14
WBC 11.7 H
Hgb 9.3 L
Hct 29.1 L
Plt Count 215
Sodium 145
Potassium 4.0
Chloride 107
Carbon Dioxide 29
BUN 59 H
Creatinine 0.8
Glucose 120 H
Calcium 8.6
Vital Signs:
Vital Signs
Temp Pulse Resp BP Pulse Ox
99.3 F 68 12 121/65 90
01/31/24 11:21 01/31/24 11:34 01/31/24 11:34 01/31/24 10:00 01/31/24 12:00
I&O
01/30/24 01/31/24 02/01/24
06:59 06:59 06:59
Intake Total 2612.8 / 2637.0 2392.9 / 2615.8 817.8 / 817.8
Output Total 2074 / 2074 2190 / 2240 915 / 915
Balance 537.8 / 562.0 202.9 / 375.8 -97.2 / -97.2
[2024-01-31 13:30] LABS: Glucose - Point of Care 236 mg/dl (70-99)
[2024-01-31 15:42] LABS: Glucose - Point of Care 197 mg/dl (70-99)
--- NOTE | 2024-01-31 16:08 | PTCARENOTE ---
Assessment unchanged. RT able to wean PEEP to 8 after multiple attempts throughout the day-see RT note. Dobhoff verified by x-ray and TF and glycemic protocol resumed.
[2024-01-31 16:14] LABS: Glucose - Point of Care 200 mg/dl (70-99)
[2024-01-31] MEDS: LOVENOX 40 MG SC (17:11)
[2024-01-31 17:28] LABS: Glucose - Point of Care 155 mg/dl (70-99)
[2024-01-31 18:05] LABS: Glucose - Point of Care 190 mg/dl (70-99)
[2024-01-31] MEDS: SUBLIMAZE 50 MCG IV ×2 (18:08→19:36)
[2024-01-31 19:05] LABS: Glucose - Point of Care 164 mg/dl (70-99)
[2024-01-31 20:10] LABS: Glucose - Point of Care 151 mg/dl (70-99)
--- NOTE | 2024-01-31 20:14 | PTCARENOTE ---
Assumed care of pt. approx 1900.
Remains intubated/sedated, see titration flowsheets for details.
Remains on hypoglycemic protocol insulin gtt.
Normocephalic/atraumatic, nods appropriately, does not follow simple commands, however does have purposeful movements reaching for ETT.
Pupils =/R 2mm brisk response, partial gaze does not track, all protective reflexes intact, w/d to pain in all extrem.
NSR w/o ectopy, Normotensive, Normothermic, anasarca +2/3, pulses +2 bi lat upper, +1 bilat lowers.
Peep decreased to 8 by dayteam, AC 12, overbreathing vent to 14, 450 volumes, pulling average 590-510, fio2 40%, sp02 93-97. Vesicular bilaterally w/ diminished bases, dry inline suctioning, copious oral secretions.
Therm dorman adequate op 60-100 hr, S/R/NT abd, TF of vital at goal.
[2024-01-31 22:16] LABS: Glucose - Point of Care 156 mg/dl (70-99)
[2024-01-31] MEDS: KLONOPIN 1.5 MG TUBE (22:27)
[2024-01-31] MEDS: ZYPREXA 10 MG TUBE (22:28)
[2024-02-01] VITALS (24 sets, daily range): BP systolic 100–136; BP diastolic 50–73; BMI 36.2
[2024-02-01 00:11] LABS: Glucose - Point of Care 149 mg/dl (70-99)
--- NOTE | 2024-02-01 00:20 | PTCARENOTE ---
No change in patient assessment
[2024-02-01] MEDS: SUBLIMAZE 100 IV ×2 (00:24→15:12)
[2024-02-01 01:13] LABS: Glucose - Point of Care 158 mg/dl (70-99)
[2024-02-01 02:09] LABS: Glucose - Point of Care 129 mg/dl (70-99)
[2024-02-01 03:20] LABS: Glucose - Point of Care 157 mg/dl (70-99)
[2024-02-01] MEDS: DIPRIVAN 100 IV ×5 (04:10→21:19)
--- NOTE | 2024-02-01 04:11 | PTCARENOTE ---
Pt. having increased fits of agitation RASS +3, Diprivan increased per prot.
[2024-02-01 04:12] LABS: Glucose - Point of Care 122 mg/dl (70-99)
[2024-02-01] MEDS: SUBLIMAZE 50 MCG IV ×2 (04:17→17:42)
[2024-02-01 04:36] LABS: Venous Blood Gas B.E. 4.5 mmol/L (-4 to +4); Venous Blood Gas HCO3 28.3 mmol/L (22-27); Venous Blood Gas O2 Sat % 99.6 %; Venous Blood Gas pCO2 38 mmHg (35-48); Venous Blood Gas pH 7.48 (7.32-7.43); Venous Blood Gas pO2 180 mmHg (30-50)
[2024-02-01 04:39] LABS: Venous Blood Gas O2 Therapy VENT
[2024-02-01 05:10] LABS: Blood Urea Nitrogen 52 mg/dl (7-17); Calcium 8.6 mg/dl (8.4-10.2); Carbon Dioxide 28 mmol/L (22-30); Chloride 105 mmol/L (98-107); Estimated Creatinine Clearance 78 ml/min; Glucose 110 mg/dl (70-99); Sodium 142 mmol/L (135-145); eGFR > 60.00
[2024-02-01 05:13] LABS: Hematocrit 28.6 % (37.0-47.0); Hemoglobin 9.3 g/dL (12.0-16.0); Mean Corp Hgb Conc. 32.5 g/dL (33.0-37.0); Mean Corpuscular Hgb 35.4 pg (27.0-31.0); Mean Corpuscular Volume 108.7 fL (81.0-99.0); Mean Platelet Volume 10.4 fL (7.4-10.4); Platelet Count 209 10^3/uL (130-400); Red Blood Cell Count 2.63 10^6/uL (4.20-5.40); Red Cell Dist. Width 15.5 % (11.5-14.5); White Blood Cell Count 12.1 10^3/uL (4.8-10.8)
[2024-02-01 05:17] LABS: Glucose - Point of Care 156 mg/dl (70-99)
[2024-02-01] MEDS: NOVOLIN R INSULIN INFUSION 100 IV ×2 (06:51→21:20)
--- NOTE | 2024-02-01 07:11 | W.PN.INTV ---
Today's Communication / Plan
Recommendations
Adjust ventilator-decrease minute ventilation
Deep suction
Attempt to wean FiO2 and PEEP
Observe off antibiotics
Spontaneous breathing trial once ventilator settings reduced
Sedation vacations
Insulin as needed
Decrease steroids
Assessment
-
63-year-old female with a history of underlying schizophrenia, diabetes, asthma, presented with cough and shortness of breath noted mucous plugs and pneumonia-pulmonary consulted for pneumonia/COPD/mucous plugs 01/24/24. She had worsening
respiratory distress and was transferred to the ICU on the evening of 01/23 and intubated on 01/25/2024.
Impression:
Acute respiratory failure with hypoxia + hypercapnia now on mechanical ventilation
(intubated 01/25/2024)
Extubated
Metabolic alkalosis due to chronic hypercapnia with CO2 now being acutely blown off s/p intubation
Left lower lobe pneumonia-nosocomial
Shock - due to sedation in setting of sepsis - shock state now resolved
Aspiration risk.
CHF-preserved EF with normal RV size and function
Mild aortic stenosis
Asthma with acute exacerbation due to pneumonia
Leukocytosis - now resolved
Anemia - stable
DM type II c/b hyperglycemia
AMBERLY (baseline Cr 0.8) - worsening
History of mild restrictive lung disease (post�bronchodilator FVC: 69% / 2.04 L via spirometry on 12/12/2020)
Conditions present prior to admission:
Bipolar.
Schizophrenia.
Borderline personality disorder
Diabetes.
Hypertension.
Hypothyroid.
Obesity.
COPD/asthma overlap.
CIELO on CPAP
Anemia.
GERD.
Chronic heart failure, preserved EF.
Appendectomy. Cholecystectomy
Plan
Critically ill sedated on a ventilator
Ventilator settings reviewed-FiO2 weaned to 0.4 and PEEP weaned to 10
Decrease minute ventilation with alkalosis noted on VBG
Day #7-ET tube
Airway pressures reviewed and adequate
Sedation vacations continue
If able to wean PEEP to 5-6 then try spontaneous breathing trial-reviewed with CITY AUDITOR
ABG 01/30/24-30 3/84/7.52-decrease minute ventilation-rate decreased to 12
VBG 01/31/24-40 6/124/7.4
VBG 02/01/24-38/180/7.48-pulse oximetry does not correlate and routinely underestimates PaO2
Chest x-ray 01/31/2024-improvement in right lower lobe pneumonia, no change in what represents pneumonia in the mid to lower left lungs
CT chest 01/28/2024-summarized below
VAP prevention protocol
Continue with nebulizers-DuoNebs
Pjsqldnn-Rydp-Wwfmxn 40 mg IV every 12 hours-decreased to every 24 hours-further decrease steroids 02/01/2024
Respiratory therapy due to large-volume saline lavage and suctioning continue-initially productive now with minimal secretions
If difficulties oxygenating then right side down to help with ventilation/perfusion matching
Bronchoscopy if mucous plugging-hold off for now
Mucolytic's
Continue diuresis continues as tolerated-even to slightly positive I's and O's last 24 hours
Monitor renal function, electrolytes, intake/output, lower extremity edema and weight
Replace electrolytes as needed
Cardiology following-correspondence reviewed-signed off 01/25/2024
Cultures reviewed
Urine Legionella and streptococcal antigens negative
Sputum culture 01/25/2024-usual respiratory jennifer
MRSA screen negative
Influenza negative
Blood cultures no growth
Empiric antibiotics continue-continue meropenem, last dose of doxycycline 01/30/2024
Infectious disease following-correspondence reviewed
Procalcitonin recheck
Observe off antibiotics
Follow leukocytosis and temperature curve as well as clinically-secretions/radiographs
Follow hemoglobin and platelet count
Transfuse as needed
Follow blood sugar
Insulin drip
Diabetic nurse practitioner following-correspondence reviewed
DVT prophylaxis-on Lovenox.
GI prophylaxis-on pantoprazole while on the ventilator and hypotensive
Nutrition - continue tube feeds
Bedside range of motion, eventual physical therapy
Critical care statement: A total of 44 minutes of critical care time was provided for this patient today. This includes management of unstable vital signs, evaluation of the patient at bedside, reviewing the patient's pertinent medical records
including radiographs, ventilator management, pressor management, microbiology, laboratory evaluations, and discussion with primary team, consultants, pharmacy, nutrition, physical therapy, case management, charge nurse, critical care nursing, and
respiratory therapy.
Studies:
Chest x-ray 01/28/2024-left basilar opacification without change
Chest x-ray 01/29/2024-no significant changes with multifocal pneumonia and atelectasis
CT chest 01/21/24-multiple pulmonary nodules stable dating back to 02/06/23-over 10 nodules, less than [address] 01/28/2024-no central pulmonary emboli, bilateral lower lobe consolidations left greater than right likely representing atelectasis and pneumonia
Chest x-ray 01/24/24-large dense lower lobe and lingular airspace disease consistent with pneumonia
CXR 01/25/2024:
Endotracheal tube tip projects in mid thoracic trachea. Nasoenteric tube courses below the diaphragm, tip is excluded by collimation.
Unchanged left mid/lower lung opacity which may represent pneumonia.
Subjective Dataa
Subjective Data
Date of Service:
Date of Service: February 01, 2024
Chief Complaint: Cylindrical Mixer Follow Up and Pulmonary Follow Up
Subjective:
FiO2 able to be weaned, still marginal saturations, more arousable, occasionally agitated, no increased secretions,
Review of Systems
General: Other (Per HPI)
Objective Data
Data Reviewed
Vital Signs / I&O / Oxygen:
Vital Signs
Temp Pulse Resp BP Pulse Ox
98.4 F 59 15 114/58 92
02/01/24 05:00 02/01/24 05:00 02/01/24 05:00 02/01/24 05:00 02/01/24 05:00
Intake and Output
01/31/24 02/01/24 02/02/24
06:59 06:59 06:59
Intake Total 2392.9 / 2615.8 2800.1 / 2800.1
Output Total 2190 / 2240 2505 / 2505
Balance 202.9 / 375.8 295.1 / 295.1
SaO2 [A/C] 94
SaO2 92
Nasal Cannula flow liters per 50
minute
Physical Exam
General: Respiratory Distress (negative), Comfortable, Chills (negative) and Sweats (negative)
HEENT: Normocephalic, Anicteric and Other (ETT in place)
Cardiovascular: Regular Rhythm and Peripheral Edema (Trace lower extremity edema bilaterally)
Respiratory: Wheeze (negative), Crackles (Left base), Rhonchi (Left hemithorax) and ET Tube (Mechanical breath sounds heard bilaterally)
GI: Soft, Distended (Abdominal obesity), Non Tender and Normal Bowel Sounds
Neurology: Lethargic (Sedated on the ventilator) and Other (Pupils 2 mm bilaterally and sluggish)
Skin: Warm, Good Color, Cyanosis (negative), Jaundice (negative) and Rash (n)
Labs/Micro/Reports
Lab Data
02/01/24 04:22
02/01/24 04:22
Microbiology
01/29/24 10:16 Tracheal Aspirate Respiratory Culture - Final
Usual Respiratory Jennifer
01/29/24 10:16 Tracheal Aspirate Gram Stain - Final
01/24/24 05:30 Blood/Venous Blood Culture - Final
No Growth - Final Report
[2024-02-01 07:16] LABS: Glucose - Point of Care 134 mg/dl (70-99)
[2024-02-01] MEDS: DEPAKENE 500 MG TUBE ×3 (07:27→21:19)
[2024-02-01] MEDS: SYNTHROID 75 MCG TUBE (07:28)
[2024-02-01] MEDS: PROZAC 20 MG TUBE (07:28)
[2024-02-01] MEDS: ZETIA 10 MG TUBE (07:28)
[2024-02-01] MEDS: PREVACID 30 MG TUBE (07:28)
[2024-02-01] MEDS: LASIX 40 MG PO (07:28)
[2024-02-01] MEDS: VALTREX 500 MG TUBE (07:28)
[2024-02-01] MEDS: SOLU-MEDROL PF 40 MG IV (07:29)
[2024-02-01] MEDS: MIRALAX 17 GRAMS TUBE (07:29)
[2024-02-01] MEDS: DUONEB 3 ML INH ×4 (07:44→20:49)
--- NOTE | 2024-02-01 07:44 | W.PN.ID1 ---
Date of Service
Date of Service: February 01, 2024
Today's Communication
Observe off antibiotics.
Assessment / Plan
# Multifocal pneumonia
# Acute on chronic hypoxemic respiratory failure; remains VDRF/intubated
# Fever - resolved
# Leukocytosis due to steroid
# hx COPD on home 2LO2 (never smoked)
# Schizoprenia on Valproic Acid, no known seizure disorder
- bcx's neg to date
- urine legionella and pneumococcal antigen negative x 2
- 01/24 sputum cx: usual respiratory jennifer
- 01/28 repeat sputum cx: usual resp jennifer
- MRSA screen negative
- remains on methylprednisolone - management per pulm.
- completed 7 day doxycycline course - stopped
- Pro-Greg normalized. Patient now off antibiotics. Continue with close observation.
- Follow clinically; patient remains critically ill at this time though with notable interval improvement
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
Schizophrenia
Diabetes mellitus
COPD on 2L02
Pulmonary nodules
Hypertension
Hypothyroidism
Heart failure with preserved EF
BMI 36
Appendectomy
Cholecystectomy
Resides in correction
����������������������������������������������������������
Chief Complaint
-: Pneumonia and Other (COPD)
Subjective / Review of Systems
Patient seen and examined. Remains on vent at this time. No significant issues overnight.
Vital Signs / Physical Exam
Vital Signs
Vital Signs
Temp Pulse Resp BP Pulse Ox
98.4 F 59 15 114/58 92
02/01/24 05:00 02/01/24 05:00 02/01/24 05:00 02/01/24 05:00 02/01/24 05:00
Physical Exam
Constitutional: No Acute Distress, Chronically Ill and Non-toxic
Oropharyngeal: Other (ET tube in place.)
Cardiovascular: Regular Rate and S1/S2; Negative Murmur or Rub
Pulmonary: Clear, Symmetric and Other (On vent.); Negative Wheezes or Rales
Gastrointestinal: Soft, Non Tender, Non Distended and Normal Bowel Sounds
Genito-Urinary: Clear Urine
Skin: Warm and Dry; Negative Rash or Jaundice
Neurological: Other (Sedated)
Objective Data
Lab Data
Lab Results
02/01/24 04:22
02/01/24 04:22
PT 14.8 Sec (11.4-14.6) H 01/24/24 04:57
INR 1.11 01/24/24 04:57
APTT 30.8 Sec (23.4-35.0) 01/24/24 04:57
Estimated Creat Clear 78 ml/min 02/01/24 04:22
Lactic Acid Cancelled 01/26/24 06:00
Total Bilirubin Cancelled 01/24/24 04:57
AST Cancelled 01/24/24 04:57
ALT Cancelled 01/24/24 04:57
Alkaline Phosphatase Cancelled 01/24/24 04:57
Most recent labs reviewed.
Micro Results:
01/29/24 10:16 Respiratory Culture - Final
Tracheal Aspirate Usual Respiratory Jennifer
Gram Stain - Final
01/24/24 05:30 Blood Culture - Final
Blood/Venous No Growth - Final Report
01/27/24 04:26 Legionella Urinary Antigen - Final
Urine Negative for Legionella pneumophila Serogroup 1 antigen.
A negative result does not rule out the possiblity of
Legionella infection due to other serogroups or species of
Legionella. Clinical correlation is recommended.
Streptococcus pneumoniae Antigen (M - Final
Negative for Streptococcus pneumoniae antigen.
A negative result does not exclude infection with
Streptococcus pneumoniae. Clinical correlation is
recommended.
01/25/24 08:34 Respiratory Culture - Final
Endotracheal Usual Respiratory Jennifer
Gram Stain - Final
01/24/24 22:34 MRSA Screen - Final
Nose No Methicillin Resistant Staphylococcus aureus isolated.
01/24/24 06:00 Legionella Urinary Antigen - Final
Urine Negative for Legionella pneumophila Serogroup 1 antigen.
A negative result does not rule out the possiblity of
Legionella infection due to other serogroups or species of
Legionella. Clinical correlation is recommended.
Streptococcus pneumoniae Antigen (M - Final
Negative for Streptococcus pneumoniae antigen.
A negative result does not exclude infection with
Streptococcus pneumoniae. Clinical correlation is
recommended.
01/24/24 06:29 Influenza Types A & B (SUSHANT) - Final
Nasal Swab Negative for Influenza A & B, NAAT
Negative results must be combined with clinical observations
and patient history.
Nucleic Acid Amplification test (NAAT)performed on the
[employer] platform.
Imaging:
01/29/24 CXR: Similar appearance of the opacities projecting over the left mid/lower lung and right lower lung, likely representing multifocal pneumonia/atelectasis.
01/28/[address]: No findings to suggest central pulmonary embolism. New bilateral lower lobe consolidations, left greater than right in comparison to recent prior 01/[address], likely representing combination of atelectasis and pneumonia.
01/26/24 CXR: Similar appearance of the left mid/lower lung opacity which likely represents pneumonia.
01/24/24 CXR: LARGE DENSE LEFT LOWER LOBE and LINGULAR AIRSPACE CONSOLIDATION which has markedly increased since 01/21/2024. Diagnostic possibilities are (1) severe left lower lobe pneumonia or (2) severe atelectasis in the left lower lobe and
lingula secondary to endobronchial mucous plugging. New mild right to left mediastinal shift consistent with volume loss in the left lung. Mild cardiomegaly.
01/21/24 CT chest: The appearance, stability and multiplicity of the multiple tiny bilateral pulmonary nodules dating back to 02/06/2023 indicate that they are benign
[2024-02-01] MEDS: FLOVENT 110 MCG INHALER 4 PUFF INH ×2 (07:45→20:49)
[2024-02-01 08:11] LABS: Absolute Neutrophils -Man Diff 4.9 10^3/uL (1.4-6.5); Band Neutrophils 5 % (0-3); Lymphocytes 39 % (20-51); Metamyelocytes 2 % (-); Monocytes 9 % (2-9); Myelocytes 5 % (-); Normal RBC Morphology No; Platelets Checked Yes; Segmented Neutrophils 36 % (42-75)
[2024-02-01 08:12] LABS: Anisocytosis 1+; Hypochromasia 1+; Macrocytosis 1+; Polychromasia 1+; Total Cells Counted 100
--- NOTE | 2024-02-01 08:51 | PTCARENOTE ---
received patient, assessment as noted. RASS -2, pt opens eyes to touch but not following, B/L wrist restraints, nodded appropriately but followed no other commands, +cough, weak gag, pupils 3, NSR with PACs on the monitor, + pulses, +2 anasarca, B/L
SCD's, #8 ETT 23 @ lip, AC 12/450/40/6 SpO2 89% after attempt to wean PEEP, Rhonchi throughout. PEEP returned to 10 after SpO2 continued to fall to 85%. Dobhoff L at 65cm, TF Vital AF 50ml/40ml H2O flush, round obese BSx4 hyperactive, thermistor
dorman yellow output, sport bed percussion per order. L and R midline, 22G RAC, prop, 30mcg, fent 75mcg, insulin gtt per glycemic protocol.
[2024-02-01 09:16] LABS: Glucose - Point of Care 142 mg/dl (70-99)
[2024-02-01 10:15] LABS: Glucose - Point of Care 127 mg/dl (70-99)
[2024-02-01 11:10] LABS: Glucose - Point of Care 136 mg/dl (70-99)
[2024-02-01 12:09] LABS: Glucose - Point of Care 122 mg/dl (70-99)
--- NOTE | 2024-02-01 12:14 | PTCARENOTE ---
RT continuing to adjust vent settings after morning decompensation with lower PEEP. Settings currently AC10/450/10/55% with SpO2 91%. No observable difference between L/R side up, before/after chest PT. Min secretions continues.
--- NOTE | 2024-02-01 12:19 | W.PN.HOSP.TC ---
Today's Communication/Plan
-
Monitor vital signs
see plan
Wean vent as tolerated
on propofol, fentanyl
Monitor off antibiotics
Continue with deep suction as tolerated
Assessment / Plan
Assessment / Plan
Physical Exam
General: Sedated Obese
HEENT: Moist mucous membranes, Pinpoint pupils b/l
Respiratory: Intubated Ronchi on auscultation
Cardiac: S1/S2 Tachycardia; No Murmur
GI: Soft, some distension noted, decreased bowel sounds
Musculoskeletal: No Clubbing, No Cyanosis and No Edema
Neuro: Sedated but responsive to physical stimuli nonresponsive to verbal
A/P: Patient is a 63y F with PMH significant for schizophrenia, DM-II and COPD who presents to ED complaining of cough and SOB.
Acute on Chronic Hypoxemic Respiratory failure
required intubation overnight 01/23-01/24
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 Currently has high oxygen requirements. would need to wean fio2 and peep. Did well with suction. No plan for bronch yet. Persistent opacification
Currently on propofol, fentanyl, wean sedation as tolerable
- Suspect multifactorial with components of LLL pneumonia, atelectasis
- Baseline chronic O2 supplementation 2L at home
CT chest pe neg for PE
wean steroids
LLL Pneumonia vs Atelectasis
Septic Shock (fever leukocytosis requiring pressor support)
- CXR with dense opacity in the L base concerning for Pneumonia vs Atelectasis mucus plugging
- Pulm eval appreciated Diamox provided with subsequent improvement Metabolic Alkalosis
- ID following, dc further abx, procal normalized
- Supportive care including mucolytics, nebs, Chest PT
-weaned off Levophed
follow fever curve
Hypernatremia
Now improving, continue with free water flushes
Severe Iron deficiency Anemia
-monitor H&H
-finished IV iron supplementation
Acute on Chronic HFpEF on admission; now appears euvolemic
- Weight is increased from prior noted baseline per our records.
- BNP significantly elevated from prior as well.
- Monitor I/Os, daily weights
- ECHO appreciated EF 60-65% compared with prior ECHO Feb 2022 mild aortic stenosis new finding.
- Cardio Eval appreciated home oral Lasix resumed with improvement in pressures weaned off pressors
Mild AMBERLY
resolved
cont to monitor on diuresis as above
COPD without Acute Exacerbation
Aspiration precautions.
Eventual Speech evaluation (if patient amenable); currently intubated
Schizoaffective Disorder
- Continue current psychotropic med regimen.
Benign Hypertension
�- Stable.� Continue home med regimen.
DM-II
Steroid induced hyperglycemia
�- Stable.� Continue outpatient Farxiga. Hold metformin acutely.
�- SSI coverage as needed.
- A1C 6.8
Sugars uncontrolled, started insulin drip. Diabetes CONVICT GUARD following
Hypothyroidism
�- Continue home T4 supplementation.
Obesity due to excess calories and insulin resistance.
�- Affects all aspects of care.
�- Encourage healthy diet and increased activity with goal of weight loss.
DVT Prophylaxis:� Lovenox
Code Status:� Full
I spent a total of 52 minutes with the patient or on the floor. More than 50% of this time involved counseling and coordination of care.
Anticipated Discharge: > 48 hours
Subjective/Interval History
-
Date of Service: February 01, 2024
Intubated
Objective Data
-
Labs:
Laboratory Results
02/01/24
04:22
WBC 12.1 H
Hgb 9.3 L
Hct 28.6 L
Plt Count 209
Sodium 142
Potassium 4.0
Chloride 105
Carbon Dioxide 28
BUN 52 H
Creatinine 0.8
Glucose 110 H
Calcium 8.6
Vital Signs:
Vital Signs
Temp Pulse Resp BP Pulse Ox
98.7 F 80 19 136/59 92
02/01/24 11:28 02/01/24 12:00 02/01/24 12:00 02/01/24 12:00 02/01/24 12:00
I&O
01/31/24 02/01/24 02/02/24
06:59 06:59 06:59
Intake Total 2392.9 / 2615.8 2800.1 / 2919.5 717.4 / 717.4
Output Total 2190 / 2240 2505 / 2505 815 / 815
Balance 202.9 / 375.8 295.1 / 414.5 -97.6 / -97.6
[2024-02-01 13:18] LABS: Glucose - Point of Care 155 mg/dl (70-99)
[2024-02-01 15:10] LABS: Glucose - Point of Care 152 mg/dl (70-99)
--- NOTE | 2024-02-01 16:18 | PTCARENOTE ---
Assessment unchanged. RT able to wean FiO2 to 50% with SpO2 94%. Tolerating turns. CPT Q4H without issue.
[2024-02-01 17:07] LABS: Glucose - Point of Care 127 mg/dl (70-99)
[2024-02-01] MEDS: LOVENOX 40 MG SC (17:34)
[2024-02-01 18:09] LABS: Glucose - Point of Care 113 mg/dl (70-99)
[2024-02-01 19:04] LABS: Glucose - Point of Care 113 mg/dl (70-99)
--- NOTE | 2024-02-01 19:22 | PTCARENOTE ---
Assumed care of pt. approx 1900.
Remains intubated/sedated, see titration flowsheets for details.
Remains on hypoglycemic protocol insulin gtt.
Normocephalic/atraumatic, nods appropriately, does not follow simple commands, however does have purposeful movements reaching for ETT.
Pupils =/R 2mm brisk response, partial gaze does not track, all protective reflexes intact, w/d to pain in all extrem.
NSR w/o ectopy, Normotensive, Normothermic, anasarca +2/3, pulses +2 bi lat upper, +1 bilat lowers.
[2024-02-01 20:11] LABS: Glucose - Point of Care 114 mg/dl (70-99)
[2024-02-01 21:17] LABS: Glucose - Point of Care 101 mg/dl (70-99)
[2024-02-01] MEDS: ZYPREXA 10 MG TUBE (21:19)
[2024-02-01] MEDS: KLONOPIN 1.5 MG TUBE (21:19)
[2024-02-01 23:08] LABS: Glucose - Point of Care 122 mg/dl (70-99)
[2024-02-02] VITALS (24 sets, daily range): BP systolic 119–157; BP diastolic 53–73; BMI 36.3
--- NOTE | 2024-02-02 00:20 | PTCARENOTE ---
No change in patient assessment.
[2024-02-02 01:07] LABS: Glucose - Point of Care 92 mg/dl (70-99)
[2024-02-02] MEDS: DIPRIVAN 100 IV ×4 (01:31→20:43)
[2024-02-02 03:12] LABS: Glucose - Point of Care 179 mg/dl (70-99)
[2024-02-02 03:44] LABS: B.E. 4.2 mmol/L; HCO3 29.7 mmol/L (21-28); PCO2 48 mmHg (32-35); PO2 183 mmHg (83-108)
[2024-02-02 03:55] LABS: Hematocrit 29.1 % (37.0-47.0); Hemoglobin 9.6 g/dL (12.0-16.0); Mean Corpuscular Hgb 35.7 pg (27.0-31.0); Mean Corpuscular Volume 108.2 fL (81.0-99.0); Mean Platelet Volume 10.8 fL (7.4-10.4); Platelet Count 225 10^3/uL (130-400); Red Blood Cell Count 2.69 10^6/uL (4.20-5.40); Red Cell Dist. Width 15.5 % (11.5-14.5); White Blood Cell Count 12.9 10^3/uL (4.8-10.8)
[2024-02-02 04:10] LABS: Blood Urea Nitrogen 47 mg/dl (7-17); Calcium 8.4 mg/dl (8.4-10.2); Carbon Dioxide 29 mmol/L (22-30); Chloride 104 mmol/L (98-107); Estimated Creatinine Clearance 77 ml/min; Glucose 168 mg/dl (70-99); Potassium 3.8 mmol/L (3.5-5.1); Sodium 140 mmol/L (135-145); Triglycerides 146 mg/dl (10-149); eGFR > 60.00
[2024-02-02] MEDS: SUBLIMAZE 100 IV ×2 (05:03→18:31)
[2024-02-02 05:09] LABS: Glucose - Point of Care 130 mg/dl (70-99)
[2024-02-02 06:09] LABS: Absolute Neutrophils -Man Diff 7.9 10^3/uL (1.4-6.5); Band Neutrophils 7 % (0-3); Segmented Neutrophils 55 % (42-75)
[2024-02-02 06:10] LABS: Anisocytosis 1+; Eosinophils 2 % (0-6); Lymphocytes 25 % (20-51); Metamyelocytes 4 % (-); Monocytes 3 % (2-9); Myelocytes 4 % (-); Normal RBC Morphology No; Nucleated Red Blood Cells 1 (-)
[2024-02-02 06:46] LABS: Hypochromasia 1+; Macrocytosis 1+; Polychromasia Occasional; Total Cells Counted 100
[2024-02-02 06:47] LABS: Basophilic Stippling Occasional; Ovalocytes Occasional; Target Cells Occasional; Toxic Granulation 1+; Vacuolated Segs Occasional
[2024-02-02 06:48] LABS: Platelets Checked Yes
[2024-02-02] MEDS: NOVOLIN R INSULIN INFUSION 100 IV ×2 (06:55→18:56)
[2024-02-02 07:09] LABS: Glucose - Point of Care 116 mg/dl (70-99)
--- NOTE | 2024-02-02 07:46 | W.PN.INTV ---
Today's Communication / Plan
Recommendations
Wean FiO2
Wean PEEP
Spontaneous breathing trial in next 24 hours
Nutrition
Insulin drip
Assessment
-
63-year-old female with a history of underlying schizophrenia, diabetes, asthma, presented with cough and shortness of breath noted mucous plugs and pneumonia-pulmonary consulted for pneumonia/COPD/mucous plugs 01/24/24. She had worsening
respiratory distress and was transferred to the ICU on the evening of 01/23 and intubated on 01/25/2024.
Impression:
Acute respiratory failure with hypoxia + hypercapnia now on mechanical ventilation
(intubated 01/25/2024)
Extubated
Metabolic alkalosis due to chronic hypercapnia with CO2 now being acutely blown off s/p intubation
Left lower lobe pneumonia-nosocomial
Shock - due to sedation in setting of sepsis - shock state now resolved
Aspiration risk.
CHF-preserved EF with normal RV size and function
Mild aortic stenosis
Asthma with acute exacerbation due to pneumonia
Leukocytosis - now resolved
Anemia - stable
DM type II c/b hyperglycemia
AMBERLY (baseline Cr 0.8) - worsening
History of mild restrictive lung disease (post�bronchodilator FVC: 69% / 2.04 L via spirometry on 12/12/2020)
Conditions present prior to admission:
Bipolar.
Schizophrenia.
Borderline personality disorder
Diabetes.
Hypertension.
Hypothyroid.
Obesity.
COPD/asthma overlap.
CIELO on CPAP
Anemia.
GERD.
Chronic heart failure, preserved EF.
Appendectomy. Cholecystectomy
Plan
Continues to be critically ill sedated on a ventilator
Ventilator settings reviewed-FiO2 weaned to 0.4 and PEEP weaned to 8
Decrease minute ventilation with alkalosis noted on VBG
Day # 8-ETT
Airway pressures reviewed and adequate
Sedation vacations continue
If able to wean PEEP to 5-6 then try spontaneous breathing trial-reviewed with WRECKER DRIVER
May be ready for spontaneous breathing trial 02/03/2024
ABG 01/30/24- 3/84/7.52-decrease minute ventilation-rate decreased to 12
VBG 01/31/24- 6/124/7.4
VBG 02/01/24-38/180/7.48-pulse oximetry does not correlate and routinely underestimates PaO2
ABG 01/29/24- 8/183/7 0.4-100% saturation on ABG and only 93% saturation on peripheral monitor
Chest x-ray 01/31/2024-improvement in right lower lobe pneumonia, no change in what represents pneumonia in the mid to lower left lungs
Recheck chest x-ray 02/03/2024
CT chest 01/28/2024-summarized below
VAP prevention protocol
Continue with nebulizers-DuoNebs
Gslfohoc-Cuim-Bvejkf 40 mg IV every 12 hours-decreased to every 24 hours-further decrease steroids 02/01/2024-30 mg IV every 24 hours
Respiratory therapy due to large-volume saline lavage and suctioning continue-initially productive now with minimal secretions
If difficulties oxygenating then right side down to help with ventilation/perfusion matching
Bronchoscopy if mucous plugging-holding off for now
Mucolytic's
Continue diuresis continues as tolerated-even to slightly positive I's and O's last 24 hours
Monitor renal function, electrolytes, intake/output, lower extremity edema and weight
Replace electrolytes as needed
Cardiology following-correspondence reviewed-signed off 01/25/2024
Cultures reviewed
Urine Legionella and streptococcal antigens negative
Sputum culture 01/25/2024-usual respiratory jennifer
MRSA screen negative
Influenza negative
Blood cultures no growth
Empiric antibiotics continue-continue meropenem, last dose of doxycycline 01/30/2024
Infectious disease following-correspondence reviewed
Procalcitonin recheck
Observe off antibiotics
Follow leukocytosis and temperature curve as well as clinically-secretions/radiographs
Follow hemoglobin and platelet count
Transfuse as needed
Follow blood sugar
Insulin drip
Diabetic nurse practitioner following-correspondence reviewed
DVT prophylaxis-on Lovenox.
GI prophylaxis-on pantoprazole while on the ventilator and hypotensive
Nutrition - continue tube feeds
Bedside range of motion, eventual physical therapy
Critical care statement: A total of 45 minutes of critical care time was provided for this patient today. This includes management of unstable vital signs, evaluation of the patient at bedside, reviewing the patient's pertinent medical records
including radiographs, ventilator management, pressor management, microbiology, laboratory evaluations, and discussion with primary team, consultants, pharmacy, nutrition, physical therapy, case management, charge nurse, critical care nursing, and
respiratory therapy.
Studies:
Chest x-ray 01/28/2024-left basilar opacification without change
Chest x-ray 01/29/2024-no significant changes with multifocal pneumonia and atelectasis
CT chest 01/21/24-multiple pulmonary nodules stable dating back to 02/06/23-over 10 nodules, less than [address] chest 01/28/2024-no central pulmonary emboli, bilateral lower lobe consolidations left greater than right likely representing atelectasis and pneumonia
Chest x-ray 01/24/24-large dense lower lobe and lingular airspace disease consistent with pneumonia
CXR 01/25/2024: Endotracheal tube tip projects in mid thoracic trachea. Nasoenteric tube courses below the diaphragm, tip is excluded by collimation.
Unchanged left mid/lower lung opacity which may represent pneumonia.
Subjective Dataa
Subjective Data
Date of Service:
Date of Service: February 02, 2024
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
Subjective:
Opens eyes, noncommunicative, no increased secretions, FiO2 weaned, PEEP weaned,
Review of Systems
General: Unobtainable - Sedation
Objective Data
Data Reviewed
Vital Signs / I&O / Oxygen:
Vital Signs
Temp Pulse Resp BP Pulse Ox
98 F 67 10 119/58 94
02/02/24 05:00 02/02/24 05:00 02/02/24 05:00 02/02/24 05:00 02/02/24 05:00
Intake and Output
02/01/24 02/02/24 02/03/24
06:59 06:59 06:59
Intake Total 2800.1 / 2919.0 2915.8 / 2915.8
Output Total 2505 / 2505 2069 / 2069
Balance 295.1 / 414.0 845.8 / 845.8
SaO2 [A/C] 94
SaO2 94
Nasal Cannula flow liters per 50
minute
Physical Exam
General: Respiratory Distress (negative), Comfortable, Chills (negative) and Sweats (negative)
HEENT: Normocephalic, Anicteric and Other (ETT in place)
Cardiovascular: Regular Rhythm and Peripheral Edema (Trace lower extremity edema bilaterally)
Respiratory: Wheeze (negative), Crackles (Left base), Rhonchi (Left hemithorax) and ET Tube (Mechanical breath sounds heard bilaterally)
GI: Soft, Distended (Abdominal obesity), Non Tender and Normal Bowel Sounds
Neurology: Lethargic (Sedated on the ventilator) and Other (Pupils 2 mm bilaterally and sluggish)
Skin: Warm, Good Color, Cyanosis (negative), Jaundice (negative) and Rash (n)
Labs/Micro/Reports
Lab Data
02/02/24 03:22
02/02/24 03:22
Laboratory Results
02/02/24
03:22
pH 7.40
pCO2 48 H
pO2 183 H
HCO3 29.7 H
O2 Delivery Level
Microbiology
01/29/24 10:16 Tracheal Aspirate Respiratory Culture - Final
Usual Respiratory Jennifer
01/29/24 10:16 Tracheal Aspirate Gram Stain - Final
[2024-02-02] MEDS: DEPAKENE 500 MG TUBE ×3 (07:47→21:14)
[2024-02-02] MEDS: MIRALAX 17 GRAMS TUBE (07:48)
[2024-02-02] MEDS: LASIX 40 MG PO (07:48)
[2024-02-02] MEDS: PROZAC 20 MG TUBE (07:48)
[2024-02-02] MEDS: PREVACID 30 MG TUBE (07:48)
[2024-02-02] MEDS: SYNTHROID 75 MCG TUBE (07:49)
[2024-02-02] MEDS: ZETIA 10 MG TUBE (07:49)
[2024-02-02] MEDS: VALTREX 500 MG TUBE (07:49)
[2024-02-02] MEDS: FLOVENT 110 MCG INHALER 4 PUFF INH ×2 (07:49→20:20)
[2024-02-02] MEDS: DUONEB 3 ML INH ×4 (07:49→20:20)
[2024-02-02] MEDS: SOLU-MEDROL PF 30 MG IV (07:50)
[2024-02-02 09:11] LABS: Glucose - Point of Care 96 mg/dl (70-99)
--- NOTE | 2024-02-02 09:33 | W.PN.ID1 ---
Date of Service
Date of Service: February 02, 2024
Today's Communication
Observe closely off antibiotics.
Assessment / Plan
# Multifocal pneumonia
# Acute on chronic hypoxemic respiratory failure; remains VDRF/intubated
# Fever - resolved
# Leukocytosis due to steroid
# hx COPD on home 2LO2 (never smoked)
# Schizoprenia on Valproic Acid, no known seizure disorder
- bcx's neg to date
- urine legionella and pneumococcal antigen negative x 2
- 01/24 sputum cx: usual respiratory jennifer
- 01/28 repeat sputum cx: usual resp jennifer
- MRSA screen negative
- 01/30 CXR with improvement in infiltrate
- remains on methylprednisolone - management per pulm.
- completed 7 day doxycycline course - stopped
- Pro-Greg normalized. Patient now off antibiotics. Continue with close observation.
- Follow clinically; patient remains critically ill at this time though with notable interval improvement, although high risk for clinical regression
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
Schizophrenia
Diabetes mellitus
COPD on 2L02
Pulmonary nodules
Hypertension
Hypothyroidism
Heart failure with preserved EF
BMI 36
Appendectomy
Cholecystectomy
Resides in skilled nursing
����������������������������������������������������������
Chief Complaint
-: Pneumonia and Other (COPD)
Subjective / Review of Systems
Patient seen and examined. Remains on vent at this time.
Review of Systems: No Fever
Vital Signs / Physical Exam
Vital Signs
Vital Signs
Temp Pulse Resp BP Pulse Ox
98.4 F 67 10 119/58 95
02/02/24 08:17 02/02/24 05:00 02/02/24 05:00 02/02/24 05:00 02/02/24 08:17
Physical Exam
Constitutional: No Acute Distress, Chronically Ill, Non-toxic and Obese
Oropharyngeal: Other (ET tube in place.)
Cardiovascular: Regular Rate and S1/S2
Pulmonary: Clear, Symmetric, Coarse and Other (ET tube to vent); Negative Wheezes or Rales
Gastrointestinal: Soft, Non Tender, Non Distended and Normal Bowel Sounds
Extremities: Edema; Negative Erythema
Skin: Warm and Dry; Negative Rash or Jaundice
Neurological: Other (Sedated)
Objective Data
Lab Data
Lab Results
02/02/24 03:22
02/02/24 03:22
PT 14.8 Sec (11.4-14.6) H 01/24/24 04:57
INR 1.11 01/24/24 04:57
APTT 30.8 Sec (23.4-35.0) 01/24/24 04:57
Estimated Creat Clear 77 ml/min 02/02/24 03:22
Lactic Acid Cancelled 01/26/24 06:00
Total Bilirubin Cancelled 01/24/24 04:57
AST Cancelled 01/24/24 04:57
ALT Cancelled 01/24/24 04:57
Alkaline Phosphatase Cancelled 01/24/24 04:57
Most recent labs reviewed.
Micro Results:
01/29/24 10:16 Respiratory Culture - Final
Tracheal Aspirate Usual Respiratory Jennifer
Gram Stain - Final
01/24/24 05:30 Blood Culture - Final
Blood/Venous No Growth - Final Report
01/27/24 04:26 Legionella Urinary Antigen - Final
Urine Negative for Legionella pneumophila Serogroup 1 antigen.
A negative result does not rule out the possiblity of
Legionella infection due to other serogroups or species of
Legionella. Clinical correlation is recommended.
Streptococcus pneumoniae Antigen (M - Final
Negative for Streptococcus pneumoniae antigen.
A negative result does not exclude infection with
Streptococcus pneumoniae. Clinical correlation is
recommended.
01/25/24 08:34 Respiratory Culture - Final
Endotracheal Usual Respiratory Jennifer
Gram Stain - Final
01/24/24 22:34 MRSA Screen - Final
Nose No Methicillin Resistant Staphylococcus aureus isolated.
01/24/24 06:00 Legionella Urinary Antigen - Final
Urine Negative for Legionella pneumophila Serogroup 1 antigen.
A negative result does not rule out the possiblity of
Legionella infection due to other serogroups or species of
Legionella. Clinical correlation is recommended.
Streptococcus pneumoniae Antigen (M - Final
Negative for Streptococcus pneumoniae antigen.
A negative result does not exclude infection with
Streptococcus pneumoniae. Clinical correlation is
recommended.
01/24/24 06:29 Influenza Types A & B (SUSHANT) - Final
Nasal Swab Negative for Influenza A & B, NAAT
Negative results must be combined with clinical observations
and patient history.
Nucleic Acid Amplification test (NAAT)performed on the
[employer] platform.
Imaging:
01/29/24 CXR: Similar appearance of the opacities projecting over the left mid/lower lung and right lower lung, likely representing multifocal pneumonia/atelectasis.
01/28/[address]: No findings to suggest central pulmonary embolism. New bilateral lower lobe consolidations, left greater than right in comparison to recent prior 01/[address], likely representing combination of atelectasis and pneumonia.
01/26/24 CXR: Similar appearance of the left mid/lower lung opacity which likely represents pneumonia.
01/24/24 CXR: LARGE DENSE LEFT LOWER LOBE and LINGULAR AIRSPACE CONSOLIDATION which has markedly increased since 01/21/2024. Diagnostic possibilities are (1) severe left lower lobe pneumonia or (2) severe atelectasis in the left lower lobe and
lingula secondary to endobronchial mucous plugging. New mild right to left mediastinal shift consistent with volume loss in the left lung. Mild cardiomegaly.
01/21/24 CT chest: The appearance, stability and multiplicity of the multiple tiny bilateral pulmonary nodules dating back to 02/06/2023 indicate that they are benign
--- NOTE | 2024-02-02 09:50 | PTCARENOTE ---
received patient, assessment as noted. RASS -2, pt opens eyes to touch but not following, B/L wrist restraints, nodded appropriately but followed no other commands, +cough, weak gag, pupils 3, NSR on the monitor, + pulses, +2 anasarca, B/L SCD's, #8
ETT 23 @ lip, AC 10/450/50/8 SpO2 91% after wean PEEP. Dobhoff L at 65cm, TF Vital AF 50ml/40ml H2O flush, round obese BSx4, thermistor dorman yellow output, sport bed percussion per order. L and R midline, prop, fent gtts, insulin gtt per glycemic
protocol.
[2024-02-02 11:11] LABS: Glucose - Point of Care 194 mg/dl (70-99)
--- NOTE | 2024-02-02 12:05 | W.PN.HOSP.TC ---
Today's Communication/Plan
-
Monitor vital signs see plan
Wean vent as tolerated
Currently on sedation
on insulin drip
Monitor off antibiotics
Assessment / Plan
Assessment / Plan
Physical Exam
General: Sedated Obese
HEENT: Moist mucous membranes, Pinpoint pupils b/l
Respiratory: Intubated Ronchi on auscultation
Cardiac: S1/S2 Tachycardia; No Murmur
GI: Soft, some distension noted, decreased bowel sounds
Musculoskeletal: No Clubbing, No Cyanosis and No Edema
Neuro: Sedated but responsive to physical stimuli nonresponsive to verbal
A/P: Patient is a 63y F with PMH significant for schizophrenia, DM-II and COPD who presents to ED complaining of cough and SOB.
Acute on Chronic Hypoxemic Respiratory failure
required intubation overnight 01/23-01/24
Wean vent as tolerated, vent management per binding printer. Currently has high oxygen requirements. would need to wean fio2 and peep. Did well with suction. No plan for bronch yet. Persistent opacification
Currently on propofol, fentanyl, wean sedation as tolerable
- Suspect multifactorial with components of LLL pneumonia, atelectasis
- Baseline chronic O2 supplementation 2L at home
CT chest pe neg for PE
wean steroids
LLL Pneumonia vs Atelectasis
Septic Shock (fever leukocytosis requiring pressor support)
- CXR with dense opacity in the L base concerning for Pneumonia vs Atelectasis mucus plugging
Repeat x-ray 01/30 with improvement in right lower lobe pneumonia.
- ID following, dc further abx, procal normalized
- Supportive care including mucolytics, nebs, Chest PT
-weaned off Levophed
follow fever curve
Hypernatremia
Now improving, continue with free water flushes
Severe Iron deficiency Anemia
-monitor H&H
-finished IV iron supplementation
Acute on Chronic HFpEF on admission; now appears euvolemic
- Weight is increased from prior noted baseline per our records.
- BNP significantly elevated from prior as well.
- Monitor I/Os, daily weights
- ECHO appreciated EF 60-65% compared with prior ECHO Feb 2022 mild aortic stenosis new finding.
- Cardio Eval appreciated home oral Lasix resumed with improvement in pressures weaned off pressors
Mild AMBERLY
resolved
cont to monitor on diuresis as above
COPD without Acute Exacerbation
Aspiration precautions.
Eventual Speech evaluation (if patient amenable); currently intubated
Schizoaffective Disorder
- Continue current psychotropic med regimen.
Benign Hypertension
�- Stable.� Continue home med regimen.
DM-II
Steroid induced hyperglycemia
�- Stable.� Continue outpatient Farxiga. Hold metformin acutely.
�- SSI coverage as needed.
- A1C 6.8
Sugars uncontrolled, started insulin drip. Diabetes HYDROGRAPHY TEACHER following
Hypothyroidism
�- Continue home T4 supplementation.
Obesity due to excess calories and insulin resistance.
�- Affects all aspects of care.
�- Encourage healthy diet and increased activity with goal of weight loss.
DVT Prophylaxis:� Lovenox
Code Status:� Full
Updated Mirian AMARAL
I spent a total of 51 minutes with the patient or on the floor. More than 50% of this time involved counseling and coordination of care.
Anticipated Discharge: > 48 hours
Subjective/Interval History
-
Date of Service: February 02, 2024
intubated
Objective Data
-
Labs:
Laboratory Results
02/02/24
03:22
WBC 12.9 H
Hgb 9.6 L
Hct 29.1 L
Plt Count 225
HCO3 29.7 H
Sodium 140
Potassium 3.8
Chloride 104
Carbon Dioxide 29
BUN 47 H
Creatinine 0.8
Glucose 168 H
Calcium 8.4
Vital Signs:
Vital Signs
Temp Pulse Resp BP Pulse Ox
98.4 F 72 11 135/65 92
02/02/24 08:17 02/02/24 11:00 02/02/24 11:00 02/02/24 11:00 02/02/24 12:00
I&O
02/01/24 02/02/24 02/03/24
06:59 06:59 06:59
Intake Total 2800.1 / 2919.0 3035.8 / 3277.7 853.2 / 853.2
Output Total 2505 / 2505 2070 / 2070 1065 / 1065
Balance 295.1 / 414.0 965.8 / 1207.7 -211.8 / -211.8
--- NOTE | 2024-02-02 12:08 | PTCARENOTE ---
Assessment unchanged. VSS. SpO2 92% on AC10/450/10/50%.
[2024-02-02 12:09] LABS: Glucose - Point of Care 162 mg/dl (70-99)
[2024-02-02 14:14] LABS: Glucose - Point of Care 126 mg/dl (70-99)
[2024-02-02 16:17] LABS: Glucose - Point of Care 102 mg/dl (70-99)
[2024-02-02] MEDS: LOVENOX 40 MG SC (17:25)
[2024-02-02] MEDS: SUBLIMAZE 50 MCG IV (17:29)
[2024-02-02 18:05] LABS: Glucose - Point of Care 146 mg/dl (70-99)
--- NOTE | 2024-02-02 20:00 | PTCARENOTE ---
Patient received in bed, intubated and sedated on Propofol and Fentanyl gtts. Bilateral wrist restraints maintained. Patient will open eyes, does not follow commands, weak gag noted. NSR on monitor, afebrile, blood pressure as documented.
Palpable pulses throughout, +2 anasarca noted. #8 ETT at 23 at the lip, A/C 10 TV 450 FIO2 50 % Peep 8, suctioned for lockwood/blood tinged secretions. Lungs coarse bilaterally, will desaturate with repositioning. DHT in left nare with Vital infusing
at 50 ml/hr with 40 ml/hr water flush, no residual noted. Abdomen soft obese with hypoactive bowel sounds. thermister dorman draining yellow urine. Foam dressings intact on sacrum and bilateral heels. Right upper arm midline, flushed and patent,
no blood return. Left upper arm midline with Propofol, Fentanyl and insulin gtts infusing as documented. Turned and repositioned.
[2024-02-02 20:11] LABS: Glucose - Point of Care 91 mg/dl (70-99)
[2024-02-02 21:10] LABS: Glucose - Point of Care 110 mg/dl (70-99)
[2024-02-02] MEDS: KLONOPIN 1.5 MG TUBE (21:14)
[2024-02-02] MEDS: ZYPREXA 10 MG TUBE (21:14)
[2024-02-02 22:11] LABS: Glucose - Point of Care 145 mg/dl (70-99)
[2024-02-02 23:10] LABS: Glucose - Point of Care 135 mg/dl (70-99)
[2024-02-03] VITALS (26 sets, daily range): BP systolic 113–161; BP diastolic 52–77; BMI 36.2
--- NOTE | 2024-02-03 | PTCARENOTE ---
Patient reassessed, care ongoing, turned and repositioned.
[2024-02-03 00:07] LABS: Glucose - Point of Care 128 mg/dl (70-99)
[2024-02-03 01:09] LABS: Glucose - Point of Care 173 mg/dl (70-99)
[2024-02-03] MEDS: DIPRIVAN 100 IV (02:07)
[2024-02-03 02:08] LABS: Glucose - Point of Care 201 mg/dl (70-99)
[2024-02-03 03:09] LABS: Glucose - Point of Care 182 mg/dl (70-99)
--- NOTE | 2024-02-03 04:00 | PTCARENOTE ---
CHG bath given, linens changed, Labs sent. No changes in assessment
[2024-02-03 04:09] LABS: Glucose - Point of Care 164 mg/dl (70-99)
[2024-02-03 04:23] LABS: % Basophils 0.6 % (0-2); % Eosinophils 3.9 % (0-6); % Immature Granulocytes 4.8 % (0-0.5); % Lymphocytes 28.2 % (20.5-51.1); % Monocytes 5.8 % (1.7-9.3); % Neutrophils 56.7 % (42.2-75.2); Absolute Basophils 0.1 10^3/uL (0-0.2); Absolute Eosinophils 0.5 10^3/uL (0-0.7); Absolute Immature Granulocytes 0.6 10^3/uL (0-0.05); Absolute Lymphocytes 3.7 10^3/uL (1.2-3.4); Absolute Monocytes 0.8 10^3/uL (0.1-0.6); Absolute Neutrophils 7.5 10^3/uL (1.4-6.5); Hematocrit 28.1 % (37.0-47.0); Hemoglobin 9.1 g/dL (12.0-16.0); Mean Corp Hgb Conc. 32.4 g/dL (33.0-37.0); Mean Corpuscular Hgb 35.8 pg (27.0-31.0); Mean Corpuscular Volume 110.6 fL (81.0-99.0); Mean Platelet Volume 10.6 fL (7.4-10.4); Nucleated Red Blood Cells % 0 %; Platelet Count 206 10^3/uL (130-400); Red Blood Cell Count 2.54 10^6/uL (4.20-5.40); Red Cell Dist. Width 15.6 % (11.5-14.5); White Blood Cell Count 13.2 10^3/uL (4.8-10.8)
[2024-02-03 04:48] LABS: Blood Urea Nitrogen 43 mg/dl (7-17); Calcium 8.4 mg/dl (8.4-10.2); Carbon Dioxide 32 mmol/L (22-30); Chloride 103 mmol/L (98-107); Estimated Creatinine Clearance 103 ml/min; Glucose 150 mg/dl (70-99); Potassium 4.1 mmol/L (3.5-5.1); Sodium 140 mmol/L (135-145); eGFR > 60.00
[2024-02-03 05:21] LABS: B.E. 4.2 mmol/L; HCO3 30.5 mmol/L (21-28); PCO2 54 mmHg (32-35); PO2 91 mmHg (83-108); pH 7.36 (7.35-7.45)
[2024-02-03 05:58] LABS: Glucose - Point of Care 187 mg/dl (70-99)
[2024-02-03] MEDS: SUBLIMAZE 100 IV ×2 (06:12→22:18)
--- NOTE | 2024-02-03 07:08 | W.PN.INTV ---
Today's Communication / Plan
Recommendations
SBT trial today, prolonged time on vent, day 10
Diuresis ongoing, but I/O still neg positive, consider increasing to lasix BID
Stop steroids, wean insulin gtt down, transition if able
Sedation holiday, ativan PRN
Called Care Home Director to confirm advanced directives, trach/PEG decision making
Assessment
-
63-year-old female with a history of underlying schizophrenia, diabetes, asthma, presented with cough and shortness of breath noted mucous plugs and pneumonia-pulmonary consulted for pneumonia/COPD/mucous plugs 01/24/24. She had worsening
respiratory distress and was transferred to the ICU on the evening of 01/23 and intubated on 01/25/2024.
Impression:
Acute respiratory failure with hypoxia + hypercapnia now on mechanical ventilation
(intubated 01/25/2024)
Extubated
Metabolic alkalosis due to chronic hypercapnia with CO2 now being acutely blown off s/p intubation
Left lower lobe pneumonia-nosocomial
Shock - due to sedation in setting of sepsis - shock state now resolved
Aspiration risk.
CHF-preserved EF with normal RV size and function
Mild aortic stenosis
Asthma with acute exacerbation due to pneumonia
Leukocytosis - now resolved
Anemia - stable
DM type II c/b hyperglycemia
AMBERLY (baseline Cr 0.8) - worsening
History of mild restrictive lung disease (post�bronchodilator FVC: 69% / 2.04 L via spirometry on 12/12/2020)
Conditions present prior to admission:
Bipolar.
Schizophrenia.
Borderline personality disorder
Diabetes.
Hypertension.
Hypothyroid.
Obesity.
COPD/asthma overlap.
CIELO on CPAP
Anemia.
GERD.
Chronic heart failure, preserved EF.
Appendectomy. Cholecystectomy
Plan
Sedation: Fent, Prop--wean as tolerated
Zyprexa daily, valproate, Klonopin, Prozac resumed from home meds--she has history of psychiatric disorders
Ativan PRN as needed, takes at home
RASS goal 0 to -1
CHF management
Continue diuresis continues as tolerated-even to slightly positive I's and O's last 24 hours
Monitor renal function, electrolytes, intake/output, lower extremity edema and weight
Only reduced from 94kg to 92kg, consideration to increase diuretic dose to BID
Cardiology following-correspondence reviewed-signed off 01/25/2024
Intubated for acute hypoxia/hypercarbia
Ventilator settings reviewed-AC 450/12/50/8+
She has history of O2 use at home
Day #10-ETT
Airway pressures reviewed and adequate
SBT trial today, ongoing
Chest x-ray 01/31/2024-improvement in right lower lobe pneumonia, no change in what represents pneumonia in the mid to lower left lungs
Recheck chest x-ray 02/03/2024
CT chest 01/28/2024-summarized below
Continue with nebulizers-DuoNebs
Zarkkgvp-[id number]-Qixpcn 40 mg IV every 12 hours, stop steroids/not wheezing
NPO, DHT in with TFs, tolerating goal
Aspiration precautions
GI prophylaxis-on pantoprazole while on the ventilator and hypotensive
Renal function normal, no prior history of renal disease
Replace electrolytes as needed
Cultures reviewed
Urine Legionella and streptococcal antigens negative
Sputum culture 01/25/2024-usual respiratory jennifer
MRSA screen negative
Influenza negative
Blood cultures no growth
Empiric antibiotics continue-continue meropenem, last dose of doxycycline 01/30/2024, completed total of 7 days of abx
Would observe off for now
Infectious disease following-correspondence reviewed
Follow leukocytosis and temperature curve as well as clinically-secretions/radiographs
CBC stable, hb in 9 range
Follow hemoglobin and platelet count
Transfuse as needed for Hb <7
DVT prophylaxis-on Lovenox
Bedside range of motion, eventual physical therapy
IDDM, on insulin at home
Elevated while on steroids
Follow blood sugar
Insulin drip wean with eventual transition to SQ
Diabetic nurse practitioner following-correspondence reviewed
Family Discussions
She has a Care Home director, Mirian Tavarez. Contacted for patient's advance directives as she is now Day 10 on the vent without significant progress in extubation.
Studies:
Chest x-ray 01/28/2024-left basilar opacification without change
Chest x-ray 01/29/2024-no significant changes with multifocal pneumonia and atelectasis
CT chest 01/21/24-multiple pulmonary nodules stable dating back to 02/06/23-over 10 nodules, less than [address] 01/28/2024-no central pulmonary emboli, bilateral lower lobe consolidations left greater than right likely representing atelectasis and pneumonia
Chest x-ray 01/24/24-large dense lower lobe and lingular airspace disease consistent with pneumonia
CXR 01/25/2024: Endotracheal tube tip projects in mid thoracic trachea. Nasoenteric tube courses below the diaphragm, tip is excluded by collimation.
Unchanged left mid/lower lung opacity which may represent pneumonia.
ABG 01/30/24-30 3/84/7.52-decrease minute ventilation-rate decreased to 12
VBG 01/31/24-40 6/124/7.4
VBG 02/01/24-38/180/7.48-pulse oximetry does not correlate and routinely underestimates PaO2
ABG 01/29/24-40 8/183/7 0.4-100% saturation on ABG and only 93% saturation on peripheral monitor
ECHO 01/24/24- Normal left ventricular size, wall thickness and systolic function. LV ejection fraction is 60-65% by visual estimation. Normal right ventricular size and function. Mild aortic stenosis.
Estimated pulmonary artery pressure of 38 mmHg assuming a right atrial pressure of 3 mmHg. Compared to prior from February 12, 2022, mild aortic stenosis is seen.
-----
Critical Care time 78 mins -- The patient is admitted for acute critical illness for the treatment of vital organ failure and/or prevention of further life-threatening conditions. Total care includes time spent in review of history, physical exam,
medications, hemodynamic/ventilator parameters, laboratory data, imaging and discussion with house staff, pharmacy, respiratory therapy, insulation board coater operator, and nursing.
Prolonged time spent with resident presentation (see other note)
Subjective Dataa
Subjective Data
Date of Service:
Date of Service: February 03, 2024
Chief Complaint: Combination Operator Follow Up and Pulmonary Follow Up
Subjective:
No acute events ON, remains critically ill
Remains on sedation, off pressors
Insulin gtt on
Objective Data
Data Reviewed
Vital Signs / I&O / Oxygen:
Vital Signs
Temp Pulse Resp BP Pulse Ox
98.4 F 66 10 113/53 95
02/03/24 02:58 02/03/24 06:00 02/03/24 05:00 02/03/24 06:00 02/03/24 06:00
Intake and Output
02/02/24 02/03/24 02/04/24
06:59 06:59 06:59
Intake Total 3035.8 / 3277.7 3110.2 / 3110.2
Output Total 2069 / 2069 2430 / 2430
Balance 965.8 / 1207.7 680.2 / 680.2
SaO2 [A/C] 94
SaO2 95
Nasal Cannula flow liters per 50
minute
Physical Exam
General: Respiratory Distress (negative), Comfortable, Chills (negative) and Sweats (negative)
HEENT: Normocephalic, Anicteric, Moist Mucous Membranes and Other (ETT in place)
Cardiovascular: S1-S2, Regular Rhythm and Peripheral Edema (Trace lower extremity edema bilaterally)
Respiratory: Clear, Wheeze (negative), Rhonchi (Left hemithorax), Non-Labored Respirations and ET Tube (Mechanical breath sounds heard bilaterally)
GI: Soft, Distended (Abdominal obesity), Non Tender and Normal Bowel Sounds
Neurology: Lethargic (Sedated on the ventilator) and Other (Pupils 2 mm bilaterally and sluggish)
Skin: Warm, Good Color, Cyanosis (negative), Jaundice (negative) and Rash (n)
Labs/Micro/Reports
Lab Data
02/03/24 04:08
02/03/24 04:08
Laboratory Results
02/03/24
05:09
pH 7.36
pCO2 54 H
pO2 91
HCO3 30.5 H
O2 Delivery Level
Microbiology
01/29/24 10:16 Tracheal Aspirate Respiratory Culture - Final
Usual Respiratory Jennifer
01/29/24 10:16 Tracheal Aspirate Gram Stain - Final
[2024-02-03 07:16] LABS: Glucose - Point of Care 154 mg/dl (70-99)
[2024-02-03] MEDS: DEPAKENE 500 MG TUBE ×3 (07:22→22:03)
[2024-02-03] MEDS: SOLU-MEDROL PF 30 MG IV (07:22)
[2024-02-03] MEDS: DULCOLAX 10 MG RECTAL (07:22)
[2024-02-03] MEDS: MIRALAX 17 GRAMS TUBE (07:22)
[2024-02-03] MEDS: PREVACID 30 MG TUBE (07:23)
[2024-02-03] MEDS: LASIX 40 MG PO (07:23)
[2024-02-03] MEDS: ZETIA 10 MG TUBE (07:23)
[2024-02-03] MEDS: PROZAC 20 MG TUBE (07:23)
[2024-02-03] MEDS: VALTREX 500 MG TUBE (07:23)
[2024-02-03 07:52] LABS: Glucose - Point of Care 128 mg/dl (70-99)
--- NOTE | 2024-02-03 07:55 | PN.DE.MGMTRT ---
Insulin Management
- -
02/03/2024: Diabetes Management F/U:
63-year-old female who presented w/cough and SOB, due to pneumonia/COPD/mucous plugs on 01/24/24. She had worsening respiratory distress and was transferred to the ICU on the evening of 01/23 and intubated on 01/25/2024 due to Acute respiratory
failure with hypoxia and hypercapnia.
PMH: COPD, Asthma, Schizophrenia and T2DM. Chart review indicates she was taking Metformin 1000mg BID, Farxiga 10mg daily, Lantus 15 units @ HS and Apidra 12 units AC. A1C 6.8%, Cr 1.3, eGFR 46.21
Pt critically ill, remains intubated and sedated, history unobtainable, no family at bedside. Information obtained from chart review and patient nurse.
IV Steroids discontinued today. Remains on Tube feeds @50cc/hr and Glycemic protocol
Glucose range 154 to 201 on glycemic protocol requiring 2 to 3.5 units of insulin/hour.
Will continue current mgt plan and reassess later today for readiness to transition off drip to sq insulin.
Discussed with patient's nurse.
Diabetes History
- -
Type of Diabetes: 2
Pre-Admission Diabetes Regimen
02/03/24
04:08
Creatinine 0.6
Lab Results
Hemoglobin A1c 6.8 % (4.0-5.6) H 01/25/24 06:17
Insulin Pump Settings
IP Diabetes Regimen
02/02/24 02/02/24 02/02/24
09:00 11:00 11:58
Glucose
POC Glucose 96 194 H 162 H
02/02/24 02/02/24 02/02/24
14:02 16:05 17:54
Glucose
POC Glucose 126 H 102 H 146 H
02/02/24 02/02/24 02/02/24
19:59 20:58 21:59
Glucose
POC Glucose 91 110 H 145 H
02/02/24 02/02/24 02/02/24
22:58 23:55 23:55
Glucose
POC Glucose 135 H 128 H 128 H
02/03/24 02/03/24 02/03/24
00:57 01:57 02:57
Glucose
POC Glucose 173 H 201 H 182 H
02/03/24 02/03/24 02/03/24
03:58 04:08 05:46
Glucose 150 H
POC Glucose 164 H 187 H
02/03/24
07:04
Glucose
POC Glucose 154 H
Patient Education
[2024-02-03] MEDS: DUONEB 3 ML INH ×4 (07:56→20:20)
[2024-02-03] MEDS: FLOVENT 110 MCG INHALER 4 PUFF INH ×2 (07:56→20:20)
[2024-02-03] MEDS: SYNTHROID 75 MCG TUBE (07:59)
[2024-02-03 08:11] LABS: Glucose - Point of Care 168 mg/dl (70-99)
--- NOTE | 2024-02-03 08:29 | PTCARENOTE ---
report received, assessments per work list. propofol, fentanyl per work list, glycemic continues. pulse oximeter 91-94, ett suctions for scant amount lockwood secretions. dobhoff placement verified, scant residual. tube feeds on hold due to medication
requirements. abdomen distended. hyper active bowel sounds. dulcolax suppository administered as no BMX3 days.dorman draining yellow urine. right and left midlines patent, right midline capped. no blood return. IV's infusing via left midline,+blood
return. +2 generalized anasarca. wrist restraints maintained for patient safety
[2024-02-03 09:10] LABS: Glucose - Point of Care 160 mg/dl (70-99)
--- NOTE | 2024-02-03 09:29 | W.PN.ID1 ---
Date of Service
Date of Service: February 03, 2024
Today's Communication
ID will sign off.
Call prn.
Assessment / Plan
# Multifocal pneumonia- resolved
# Acute on chronic hypoxemic respiratory failure, weaning vent
# Fever - resolved
# Leukocytosis due to steroid, overall trending down
# hx COPD on home 2LO2 (never smoked)
# Schizoprenia on Valproic Acid, no known seizure disorder
- bcx's neg to date
- urine legionella and pneumococcal antigen negative x 2
- 01/24 sputum cx: usual respiratory jennifer
- 01/28 repeat sputum cx: usual resp jennifer
- MRSA screen negative
- 01/30 CXR with improvement in infiltrate
- remains on methylprednisolone - management per pulm.
- completed 7 day doxycycline course - stopped
- Pro-Greg normalized. Patient now off antibiotics. Continue with close observation.
ID will sign off.
# Conditions BURR SANDER
Schizophrenia
Diabetes mellitus
COPD on 2L02
Pulmonary nodules
Hypertension
Hypothyroidism
Heart failure with preserved EF
BMI 36
Appendectomy
Cholecystectomy
Resides in retirement
����������������������������������������������������������
Chief Complaint
-: Pneumonia and Other (COPD)
Subjective / Review of Systems
Awake. On vent.
Vital Signs / Physical Exam
Vital Signs
Vital Signs
Temp Pulse Resp BP Pulse Ox
98.7 F 80 12 133/58 91
02/03/24 07:52 02/03/24 09:00 02/03/24 09:00 02/03/24 09:00 02/03/24 09:00
Physical Exam
Cardiovascular: Regular Rate and S1/S2
Pulmonary: Clear (anteriorly)
Gastrointestinal: Soft, Non Tender and Non Distended
Genito-Urinary: Del Castillo and Clear Urine
Extremities: Negative Edema
Neurological: Awake
Objective Data
Lab Data
Lab Results
02/03/24 04:08
02/03/24 04:08
PT 14.8 Sec (11.4-14.6) H 01/24/24 04:57
INR 1.11 01/24/24 04:57
APTT 30.8 Sec (23.4-35.0) 01/24/24 04:57
Estimated Creat Clear 103 ml/min 02/03/24 04:08
Lactic Acid Cancelled 01/26/24 06:00
Total Bilirubin Cancelled 01/24/24 04:57
AST Cancelled 01/24/24 04:57
ALT Cancelled 01/24/24 04:57
Alkaline Phosphatase Cancelled 01/24/24 04:57
Most recent labs reviewed.
Micro Results:
01/29/24 10:16 Respiratory Culture - Final
Tracheal Aspirate Usual Respiratory Jennifer
Gram Stain - Final
01/24/24 05:30 Blood Culture - Final
Blood/Venous No Growth - Final Report
01/27/24 04:26 Legionella Urinary Antigen - Final
Urine Negative for Legionella pneumophila Serogroup 1 antigen.
A negative result does not rule out the possiblity of
Legionella infection due to other serogroups or species of
Legionella. Clinical correlation is recommended.
Streptococcus pneumoniae Antigen (M - Final
Negative for Streptococcus pneumoniae antigen.
A negative result does not exclude infection with
Streptococcus pneumoniae. Clinical correlation is
recommended.
01/25/24 08:34 Respiratory Culture - Final
Endotracheal Usual Respiratory Jennifer
Gram Stain - Final
01/24/24 22:34 MRSA Screen - Final
Nose No Methicillin Resistant Staphylococcus aureus isolated.
01/24/24 06:00 Legionella Urinary Antigen - Final
Urine Negative for Legionella pneumophila Serogroup 1 antigen.
A negative result does not rule out the possiblity of
Legionella infection due to other serogroups or species of
Legionella. Clinical correlation is recommended.
Streptococcus pneumoniae Antigen (M - Final
Negative for Streptococcus pneumoniae antigen.
A negative result does not exclude infection with
Streptococcus pneumoniae. Clinical correlation is
recommended.
01/24/24 06:29 Influenza Types A & B (SUSHANT) - Final
Nasal Swab Negative for Influenza A & B, NAAT
Negative results must be combined with clinical observations
and patient history.
Nucleic Acid Amplification test (NAAT)performed on the
[employer] platform.
Imaging:
01/29/24 CXR: Similar appearance of the opacities projecting over the left mid/lower lung and right lower lung, likely representing multifocal pneumonia/atelectasis.
01/28/[address]: No findings to suggest central pulmonary embolism. New bilateral lower lobe consolidations, left greater than right in comparison to recent prior 01/[address], likely representing combination of atelectasis and pneumonia.
01/26/24 CXR: Similar appearance of the left mid/lower lung opacity which likely represents pneumonia.
01/24/24 CXR: LARGE DENSE LEFT LOWER LOBE and LINGULAR AIRSPACE CONSOLIDATION which has markedly increased since 01/21/2024. Diagnostic possibilities are (1) severe left lower lobe pneumonia or (2) severe atelectasis in the left lower lobe and
lingula secondary to endobronchial mucous plugging. New mild right to left mediastinal shift consistent with volume loss in the left lung. Mild cardiomegaly.
01/21/24 CT chest: The appearance, stability and multiplicity of the multiple tiny bilateral pulmonary nodules dating back to 02/06/2023 indicate that they are benign
[2024-02-03 10:14] LABS: Glucose - Point of Care 181 mg/dl (70-99)
[2024-02-03 10:30] LABS: NT-proBNP 339 pg/ml
[2024-02-03 11:21] LABS: Glucose - Point of Care 206 mg/dl (70-99)
[2024-02-03] MEDS: NSS (PRESERVATIVE FREE) 0.5 ML IV ×2 (11:34→18:17)
[2024-02-03] MEDS: ATIVAN 1 MG IV ×2 (11:35→18:17)
[2024-02-03] MEDS: SUBLIMAZE 50 MCG IV ×2 (11:44→18:37)
--- NOTE | 2024-02-03 11:47 | PTCARENOTE ---
spontaneous awakening trial followed by vent wean@1100. followed commands. placed on PS 10/8, fio2 50%. tolerated for 30 minutes. became restless, tachypneic 40's. placed back on vent. ett advanced by RT per semiconductor wafers etch operator direction to 25 cm. fentanyl
resumed post wean. bolus given for non verbal pain cues. Ativan given for vent compliance. Del Castillo removed per protocol. hospitalist in, updated, viewed rash on feet/ankles. no new orders at this time
[2024-02-03 12:16] LABS: Glucose - Point of Care 193 mg/dl (70-99)
--- NOTE | 2024-02-03 13:03 | W.PN.INTV ---
Today's Communication / Plan
Recommendations
*SEE PLAN ABOVE
Assessment
-
ASSESSMENT:
64 yo Female With a relevant PMHx for Schizophrenia, DM II, COPD (On 2L of O2 at Home), previously (+) for COVID on 2023 and a remote Hx of Multiple Pulmonary Nodules, who presented to the ED with cough and worsening respiratory distress last
Saturday (2023), subsequently requiring Intubation and Mechanical Ventilation on 2023 after been found to be have Acute Respiratory Failure with Hypoxia and Associated Hypercapnia in the setting of Pulmonary Disease Process of
Unknown etiology.
PLAN:
NEURO:
Continue to Slowly Wean Off Sedation
Currently On Fentanyl & Propofol with a ANA bet. -2 and -1 (Possible D/C & Switch to Precedex)
RESPI:
Continue Mechanical Ventilation
Failed SBT this AM
Continue to Slowly Wean Off FiO2 (Previously at 40% this AM)
Continue to Slowly Wean Off PEP between 5-6 (Previously at 8 this AM)
Slowly Decrease Minute Ventilation / In the Setting of Chronic Metabolic Alkalosis / Current RR of 12 this AM With a 7.36 PH
Repeat ABG later on as needed
D/C Solumedrol > 6 days of Therapy Completed
Continue Off ABX in the setting of Repeated Negative Cultures
Plan to repeat CXR every other day / For progressive evaluation of current pulmonary disease process & further characterization
Continue Conservative Respiratory Measures
CARDIO:
Increase IV Lasix 40mg QD to BID
Continue to closely monitor In/Outs
Continue to follow electrolytes for any Disarrangements in the setting of increase Diuresis
GI:
Continue Insulin Drip
Continue to Closely Monitor Glucose Levels
Continue PRN Bowel Regimen
Establish Tube Feeds Goal / In the setting of Steroids Discontinuation
Continue Gi Ppx With Protonix 40mg IV QD / In the setting of Mechanical Ventilation and Hydrodynamical Instability
VASCULAR:
Continue DVT Pppx With Levonox 40mg SubQ Q12hrs
GENERAL:
Continue to Adm. Home Medications
Continue to Closely Monitor for Signs of Disease Progression or development of Infection
Subjective Dataa
Subjective Data
Date of Service:
Date of Service: February 03, 2024
Patient was seen and evaluated this morning at bedside with the attending physician and ICU team during morning rounds.
In NAD / AAOx0 / Sedated
Continue On Mechanical Ventilation
Minimal Respiratory Secretions
Hemodynamically Stable
NO Acute Events O/N
Persistent L-Basilar Opacification with associated Ipsilateral Mid/Lower Lobe Atelectasis
Mild Improvement on R-Lobe Patchy Opacifications
Still Ongoing Bilateral Multifocal Pulmonary Disease Process of Unknown Etiology
Off ABX's
Chief Complaint: Shell Molder Follow Up and Pulmonary Follow Up
Objective Data
Data Reviewed
Vital Signs / I&O / Oxygen:
Vital Signs
Temp Pulse Resp BP Pulse Ox
37.2 C 86 12 160/74 92
02/03/24 11:53 02/03/24 12:00 02/03/24 12:00 02/03/24 12:00 02/03/24 12:00
Intake and Output
02/02/24 02/03/24 02/04/24
06:59 06:59 06:59
Intake Total 3035.8 / 3277.7 3110.2 / 3229.8 779.5 / 779.5
Output Total 2069 / 2069 2430 / 2430 825 / 825
Balance 965.8 / 1207.7 680.2 / 799.8 -45.5 / -45.5
SaO2 [A/C] 92
SaO2 92
Nasal Cannula flow liters per 50
minute
Physical Exam
General: Respiratory Distress (negative), Comfortable, Chills (negative) and Sweats (negative)
HEENT: Normocephalic, Anicteric and Other (ETT in place)
Cardiovascular: Regular Rhythm and Peripheral Edema (Trace lower extremity edema bilaterally)
Respiratory: Wheeze (negative), Crackles (Left base), Rhonchi (Left hemithorax) and ET Tube (Mechanical breath sounds heard bilaterally)
GI: Soft, Distended (Abdominal obesity), Non Tender and Normal Bowel Sounds
Neurology: Lethargic (Sedated on the ventilator) and Other (Pupils 2 mm bilaterally and sluggish)
Skin: Warm, Good Color, Cyanosis (negative), Jaundice (negative) and Rash (n)
Labs/Micro/Reports
Lab Data
02/03/24 04:08
02/03/24 04:08
Laboratory Results
02/03/24
05:09
pH 7.36
pCO2 54 H
pO2 91
HCO3 30.5 H
O2 Delivery Level
Microbiology
01/29/24 10:16 Tracheal Aspirate Respiratory Culture - Final
Usual Respiratory Ramila
01/29/24 10:16 Tracheal Aspirate Gram Stain - Final
[2024-02-03 13:12] LABS: Glucose - Point of Care 176 mg/dl (70-99)
[2024-02-03] MEDS: ZYPREXA 5 MG TUBE (13:14)
--- NOTE | 2024-02-03 13:16 | PTCARENOTE ---
patient agitated with care. zyprexa per prn order.
[2024-02-03 14:18] LABS: Glucose - Point of Care 157 mg/dl (70-99)
[2024-02-03 15:10] LABS: Glucose - Point of Care 156 mg/dl (70-99)
--- NOTE | 2024-02-03 15:20 | CM ---
CM following re: discharge planning.
Discussed in Rounds, reviewed pt's chart, met with pt. Per Rounds meeting, pt remains intubated and sedated, opens eyes to verbal stimuli, follows commands, continue supportive care.
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
[facility] rehabilitation program manager rosalinda Tavarez (cell: [phone]) is next of kin.
D/C plan: Uncertain at this time and will depend on pt's progress.
CM will follow with discharge plan updates as hospitalization progresses
--- NOTE | 2024-02-03 15:39 | PTCARENOTE ---
reassessed patient, arouses easily, follows commands. restraints maintained for patient safety. purewick in place, voided 400ml lay urine. post void residual 34.
--- NOTE | 2024-02-03 15:50 | W.PN.HOSP.TC ---
Today's Communication/Plan
-
SBT.
Continue current neuropsychiatric regimen to avoid agitation.
Observe off steroids
Has been off antibiotics per
Consider additional Lasix to facilitate weaning.
Wean off IV insulin drip
Total Critical Care Time__55___ minutes. I was immediately available to the patient and staff. I personally examined, reviewed labs, diagnostic images/reports, interpretations, treatment plans, discussed patient care with other providers and
family or caregivers (if patient is unable to make decisions), entered orders as appropriate and documented the medical record.
Assessment / Plan
Assessment / Plan
A/P: Patient is a 63y F with PMH significant for schizophrenia, DM-II and COPD who presents to ED complaining of cough and SOB.
Impression:
Acute hypoxic/hypercarbic respiratory failure
� Intubated 01/25/2024
Nosocomial pneumonia with bilateral infiltrates.
Aspiration risk
Acute on chronic CHF preserved EF suspected.
AMBERLY, resolved
Steroid-induced hyperglycemia
Conditions prior to admission:
Schizophrenia
Bipolar disorder baseline borderline personality.
Type 2 diabetes.
Essential hypertension baseline morbid obesity with BMI of 36
Chronic CHF preserved EF
COPD/asthma
Obstructive sleep apnea on CPAP
GERD
Anemia of chronic disease/iron deficiency
Plan:
VDRF with prolonged intubation.
Respiratory status relatively stable on current vent settings.
Off sedation.
On preadmission psych: Neurologic regimen including Zyprexa, valproic acid, Klonopin, Prozac wire feeding tube.
ABG with mild respiratory acidosis.
Exam with no bronchospasm.
Follow-up chest x-ray with improvement of bilateral pneumonia.
Continue SBT
Agreed to wean off steroids.
Consider additional diuresis to facilitate weaning.
Multifocal pneumonia, suspect aspiration versus nosocomial
CT chest 01/27 negative for PE. Bilateral lower lobe consolidations left greater than right representing combination of atelectasis and pneumonia.
Follow-up imaging with improved infiltrates
Procalcitonin normalized
Complete 7-day course of doxycycline.
Monitor closely for temperature curve and white count
Aspiration precautions
Chronic CHF preserved EF
Suspected volume overload
On oral Lasix
Consider additional diuresis to facilitate weaning.
Acute kidney injury secondary dehydration
Hyponatremia
Improved with volume expansion
Type 2 diabetes
Obesity with BMI of 36.
Hemoglobin A1c 6.8.
Currently off Farxiga and metformin.
Steroid-induced hyperglycemia requiring initiation of IV insulin drip critical care protocol.
Wean off steroids per
I just drip accordingly.
Hypothyroidism
Continue levothyroxine
Full code.
DVT prophylaxis Lovenox
Anticipated Discharge: > 48 hours
Subjective/Interval History
-
Date of Service: February 03, 2024
Objective Data
-
Labs:
Laboratory Results
02/03/24 02/03/24
04:08 05:09
WBC 13.2 H
Hgb 9.1 L
Hct 28.1 L
Plt Count 206
HCO3 30.5 H
Sodium 140
Potassium 4.1
Chloride 103
Carbon Dioxide 32 H
BUN 43 H
Creatinine 0.6
Glucose 150 H
Calcium 8.4
Vital Signs:
Vital Signs
Temp Pulse Resp BP Pulse Ox
99 F 77 12 140/59 92
02/03/24 15:10 02/03/24 15:30 02/03/24 15:30 02/03/24 15:00 02/03/24 15:40
I&O
02/02/24 02/03/24 02/04/24
06:59 06:59 06:59
Intake Total 3035.8 / 3277.7 3110.2 / 3229.8 1115.5 / 1115.5
Output Total 2069 2430 / 243 825 / 825
Balance 965.8 / 1207.7 680.2 / 799.8 290.5 / 290.5
Physical Exam
-
General: Well Developed and No Apparent Distress
HEENT: Normocephalic, Atraumatic, Moist Mucous Membranes and Other (Intubated with ET tube in place clear secretions)
Respiratory: Clear to Auscultation
Cardiac: Regular Rhythm and S1/S2; Negative Murmur, Rub or Gallop
GI: Soft, Nontender, Nondistended and Normal Bowel Sounds; Negative Organomegaly
Rectal: Deferred by Provider
Musculoskeletal: No Clubbing, No Cyanosis and No Edema
Skin: Negative Rash
Neuro: Awake, Alert (Following simple commands while on the vent) and Nonfocal/Grossly Intact
[2024-02-03 16:07] LABS: Glucose - Point of Care 163 mg/dl (70-99)
[2024-02-03] MEDS: LOVENOX 40 MG SC (16:57)
[2024-02-03 17:14] LABS: Glucose - Point of Care 164 mg/dl (70-99)
[2024-02-03 19:10] LABS: Glucose - Point of Care 127 mg/dl (70-99)
--- NOTE | 2024-02-03 20:07 | PTCARENOTE ---
Pt received drowsy. Arouses easily to name. Tolerating current vent settings. Remains on glycemic protocol. Remains on fentanyl drip. Tolerating tube feeds. Assessment as charted.
[2024-02-03 21:06] LABS: Glucose - Point of Care 120 mg/dl (70-99)
[2024-02-03] MEDS: NOVOLIN R INSULIN INFUSION 100 IV (21:08)
[2024-02-03] MEDS: KLONOPIN 1.5 MG TUBE (22:03)
[2024-02-03] MEDS: ZYPREXA 10 MG TUBE (22:03)
[2024-02-03 22:11] LABS: Glucose - Point of Care 131 mg/dl (70-99)
[2024-02-03 23:07] LABS: Glucose - Point of Care 128 mg/dl (70-99)
[2024-02-04] VITALS (29 sets, daily range): BP systolic 107–155; BP diastolic 52–81; PULSE 2–89; BMI 36.6
[2024-02-04 00:08] LABS: Glucose - Point of Care 110 mg/dl (70-99)
[2024-02-04 00:20] LABS: Glucose - Point of Care 114 mg/dl (70-99)
[2024-02-04 01:11] LABS: Glucose - Point of Care 122 mg/dl (70-99)
[2024-02-04 03:21] LABS: Glucose - Point of Care 118 mg/dl (70-99)
[2024-02-04 04:37] LABS: Hematocrit 28.6 % (37.0-47.0); Hemoglobin 9.4 g/dL (12.0-16.0); Mean Corp Hgb Conc. 32.9 g/dL (33.0-37.0); Mean Corpuscular Hgb 34.7 pg (27.0-31.0); Mean Corpuscular Volume 105.5 fL (81.0-99.0); Mean Platelet Volume 10.6 fL (7.4-10.4); Platelet Count 226 10^3/uL (130-400); Red Blood Cell Count 2.71 10^6/uL (4.20-5.40); Red Cell Dist. Width 15.4 % (11.5-14.5); White Blood Cell Count 16.1 10^3/uL (4.8-10.8)
[2024-02-04 05:04] LABS: Blood Urea Nitrogen 35 mg/dl (7-17); Calcium 8.4 mg/dl (8.4-10.2); Carbon Dioxide 34 mmol/L (22-30); Chloride 102 mmol/L (98-107); Estimated Creatinine Clearance 103 ml/min; Glucose 101 mg/dl (70-99); Magnesium 1.8 mg/dl (1.6-2.3); Potassium 3.8 mmol/L (3.5-5.1); Sodium 141 mmol/L (135-145); eGFR > 60.00
[2024-02-04] MEDS: SYNTHROID 75 MCG TUBE (05:08)
[2024-02-04 05:15] LABS: Glucose - Point of Care 100 mg/dl (70-99)
--- NOTE | 2024-02-04 05:24 | PTCARENOTE ---
No change in assessment.
[2024-02-04 06:12] LABS: Glucose - Point of Care 114 mg/dl (70-99)
[2024-02-04 07:06] LABS: Glucose - Point of Care 132 mg/dl (70-99)
--- NOTE | 2024-02-04 07:09 | W.PN.INTV ---
Today's Communication / Plan
Recommendations
Sedation wean, reviewed with RN
Diuresis ongoing, but minimize fluid via intake/IVs
SBT with plan to extubate to bipap if passes
Transition off insulin gtt, O AND M SUPERVISOR following
If not doing well and requires reintubation, would move forward with tracheostomy
Observation tonight
Assessment
-
63-year-old female with a history of underlying schizophrenia, diabetes, asthma, presented with cough and shortness of breath noted mucous plugs and pneumonia-pulmonary consulted for pneumonia/COPD/mucous plugs 01/24/24. She had worsening
respiratory distress and was transferred to the ICU on the evening of 01/23 and intubated on 01/25/2024.
Impression:
Acute respiratory failure with hypoxia + hypercapnia now on mechanical ventilation
(intubated 01/25/2024)
Metabolic alkalosis due to chronic hypercapnia with CO2 now being acutely blown off s/p intubation
Left lower lobe pneumonia-nosocomial
Shock - due to sedation in setting of sepsis - shock state now resolved
Aspiration risk.
CHF-preserved EF with normal RV size and function
Mild aortic stenosis
Asthma with acute exacerbation due to pneumonia
Leukocytosis - now resolved
Anemia - stable
DM type II c/b hyperglycemia
AMBERLY (baseline Cr 0.8) - worsening
History of mild restrictive lung disease (post�bronchodilator FVC: 69% / 2.04 L via spirometry on 12/12/2020)
Conditions present prior to admission:
Bipolar.
Schizophrenia.
Borderline personality disorder
Diabetes.
Hypertension.
Hypothyroid.
Obesity.
COPD/asthma overlap.
CIELO on CPAP
Anemia.
GERD.
Chronic heart failure, preserved EF.
Appendectomy. Cholecystectomy
Plan
Sedation: Fent, Prop--off now
Zyprexa daily, valproate, Klonopin, Prozac resumed from home meds--she has history of psychiatric disorders
Ativan PRN as needed, takes at home
RASS goal 0 to -1
CHF management
Continue diuresis continues as tolerated-even to slightly positive I's and O's last 24 hours
Monitor renal function, electrolytes, intake/output, lower extremity edema and weight
Only reduced from 94kg to 92kg, consideration to increase diuretic dose to BID
Cardiology following-correspondence reviewed-signed off 01/25/2024
Intubated for acute hypoxia/hypercarbia
Ventilator settings reviewed-AC 450/12/50/8+
She has history of O2 use at home
Day #10-ETT
Airway pressures reviewed and adequate
Chest x-ray 01/31/2024-improvement in right lower lobe pneumonia, no change in what represents pneumonia in the mid to lower left lungs
Recheck chest x-ray 02/03/2024
CT chest 01/28/2024-summarized below
Continue with nebulizers-DuoNebs
SBT Today and extubate if tolerating
NPO, DHT in with TFs, tolerating goal
Aspiration precautions
GI prophylaxis-on pantoprazole while on the ventilator and hypotensive
Renal function normal, no prior history of renal disease
Replace electrolytes as needed
Cultures reviewed
Urine Legionella and streptococcal antigens negative
Sputum culture 01/25/2024-usual respiratory jennifer
MRSA screen negative
Influenza negative
Blood cultures no growth
Empiric antibiotics continue-continue meropenem, last dose of doxycycline 01/30/2024, completed total of 7 days of abx
Would observe off for now
Infectious disease following-correspondence reviewed
Follow leukocytosis and temperature curve as well as clinically-secretions/radiographs
CBC stable, hb in 9 range
Follow hemoglobin and platelet count
Transfuse as needed for Hb <7
DVT prophylaxis-on Lovenox
Bedside range of motion, eventual physical therapy
IDDM, on insulin at home
Elevated while on steroids
Follow blood sugar
Insulin drip wean with eventual transition to SQ
Diabetic nurse practitioner following-correspondence reviewed
Family Discussions
She has a Residential director, Mirian Tavarez. Contacted for patient's advance directives as she is now Day 10 on the vent without significant progress in extubation.
Studies:
Chest x-ray 01/28/2024-left basilar opacification without change
Chest x-ray 01/29/2024-no significant changes with multifocal pneumonia and atelectasis
CT chest 01/21/24-multiple pulmonary nodules stable dating back to 02/06/23-over 10 nodules, less than [address] chest 01/28/2024-no central pulmonary emboli, bilateral lower lobe consolidations left greater than right likely representing atelectasis and pneumonia
Chest x-ray 01/24/24-large dense lower lobe and lingular airspace disease consistent with pneumonia
CXR 01/25/2024: Endotracheal tube tip projects in mid thoracic trachea. Nasoenteric tube courses below the diaphragm, tip is excluded by collimation.
Unchanged left mid/lower lung opacity which may represent pneumonia.
ABG 01/30/24-30 3/84/7.52-decrease minute ventilation-rate decreased to 12
VBG 01/31/24-40 6/124/7.4
VBG 02/01/24-38/180/7.48-pulse oximetry does not correlate and routinely underestimates PaO2
ABG 01/29/24-40 8/183/7 0.4-100% saturation on ABG and only 93% saturation on peripheral monitor
ECHO 01/24/24- Normal left ventricular size, wall thickness and systolic function. LV ejection fraction is 60-65% by visual estimation. Normal right ventricular size and function. Mild aortic stenosis.
Estimated pulmonary artery pressure of 38 mmHg assuming a right atrial pressure of 3 mmHg. Compared to prior from February 12, 2022, mild aortic stenosis is seen.
-----
Critical Care time 80 mins -- The patient is admitted for acute critical illness for the treatment of vital organ failure and/or prevention of further life-threatening conditions. Total care includes time spent in review of history, physical exam,
medications, hemodynamic/ventilator parameters, laboratory data, imaging and discussion with house staff, pharmacy, respiratory therapy, geospatial image analyst, and nursing.
Prolonged time spent with resident presentation (see other note)
Subjective Dataa
Subjective Data
Date of Service:
Date of Service: February 04, 2024
Chief Complaint: Assurance Engineer Follow Up and Pulmonary Follow Up
Subjective:
Remains on vent, PSW today
No new complaints/events
Objective Data
Data Reviewed
Vital Signs / I&O / Oxygen:
Vital Signs
Temp Pulse Resp BP Pulse Ox
99.5 F 75 13 127/69 95
02/04/24 03:33 02/04/24 06:00 02/04/24 06:00 02/04/24 06:00 02/04/24 06:00
Intake and Output
02/03/24 02/04/24 02/05/24
06:59 06:59 06:59
Intake Total 3110.2 / 3229.8 2696.7 / 2696.7
Output Total 2430 / 2430 825 / 825
Balance 680.2 / 799.8 1871.7 / 1871.7
SaO2 [A/C] 92
SaO2 95
Nasal Cannula flow liters per 50
minute
Physical Exam
General: Respiratory Distress (negative), Comfortable, Chills (negative) and Sweats (negative)
HEENT: Normocephalic, Anicteric, Moist Mucous Membranes and Other (ETT in place)
Cardiovascular: S1-S2, Regular Rhythm and Peripheral Edema (Trace lower extremity edema bilaterally)
Respiratory: Clear, Wheeze (negative), Rhonchi (Left hemithorax), Non-Labored Respirations and ET Tube (Mechanical breath sounds heard bilaterally)
GI: Soft, Distended (Abdominal obesity), Non Tender and Normal Bowel Sounds
Neurology: Lethargic (Sedated on the ventilator) and Other (Pupils 2 mm bilaterally and sluggish)
Skin: Warm, Good Color, Cyanosis (negative), Jaundice (negative) and Rash (n)
Labs/Micro/Reports
Lab Data
02/04/24 04:15
02/04/24 04:15
[2024-02-04] MEDS: FLOVENT 110 MCG INHALER 4 PUFF INH (07:38)
[2024-02-04] MEDS: DUONEB 3 ML INH (07:38)
[2024-02-04 08:23] LABS: Glucose - Point of Care 198 mg/dl (70-99)
--- NOTE | 2024-02-04 08:30 | PN.DE.MGMTRT ---
Insulin Management
- -
02/04/2024: Diabetes Management Follow up:
63-year-old female who presented w/cough and SOB, due to pneumonia/COPD/mucous plugs on 01/24/24. She had worsening respiratory distress and was transferred to the ICU on the evening of 01/23 and intubated on 01/25/2024 due to Acute respiratory
failure with hypoxia and hypercapnia.
PMH: COPD, Asthma, Schizophrenia and T2DM. Chart review indicates she was taking Metformin 1000mg BID, Farxiga 10mg daily, Lantus 15 units @ HS and Apidra 12 units AC. A1C 6.8%, Cr 1.3, eGFR 46.21
Pt critically ill, remains intubated and sedated, history unobtainable, no family at bedside. Information obtained from chart review and patient nurse.
IV Steroids discontinued today. Remains on Tube feeds @50cc/hr and Glycemic protocol
Glucose range 154 to 201 on glycemic protocol requiring 1.2 to 4 units of insulin/hour with no excursions in insulin requirements.
Will transition off drip to sq insulin. Give lantus 20 units now then insulin drip off 2 hours after lantus administered. Will give 8 units novolog Q 6 hours with low corrective.
Discussed with patient's nurse.
Diabetes History
- -
Type of Diabetes: 2 requiring insulin
Pre-Admission Diabetes Regimen
02/04/24
04:15
Creatinine 0.6
Lab Results
Hemoglobin A1c 6.8 % (4.0-5.6) H 01/25/24 06:17
Insulin Pump Settings
IP Diabetes Regimen
02/03/24 02/03/24 02/03/24
08:58 10:03 11:09
Glucose
POC Glucose 160 H 181 H 206 H
02/03/24 02/03/24 02/03/24
12:05 13:01 14:07
Glucose
POC Glucose 193 H 176 H 157 H
11/02/03/24 02/03/24
14:59 15:56 17:03
Glucose
POC Glucose 156 H 163 H 164 H
02/03/24 02/03/24 02/03/24
18:59 20:55 21:59
Glucose
POC Glucose 127 H 120 H 131 H
02/03/24 02/03/24 02/04/24
22:55 23:57 00:08
Glucose
POC Glucose 128 H 110 H 114 H
02/04/24 02/04/24 02/04/24
01:00 03:09 04:15
Glucose 101 H
POC Glucose 122 H 118 H
02/04/24 02/04/24 02/04/24
05:04 06:00 06:55
Glucose
POC Glucose 100 H 114 H 132 H
02/04/24
08:12
Glucose
POC Glucose 198 H
Patient Education
[2024-02-04] MEDS: LASIX 40 MG PO (08:33)
[2024-02-04] MEDS: DEPAKENE 500 MG TUBE ×3 (08:33→21:02)
[2024-02-04] MEDS: PROZAC 20 MG TUBE (08:33)
[2024-02-04] MEDS: ZETIA 10 MG TUBE (08:33)
[2024-02-04] MEDS: PREVACID 30 MG TUBE (08:34)
[2024-02-04] MEDS: MIRALAX TUBE (08:34)
[2024-02-04] MEDS: ATIVAN 1 MG IV (08:52)
[2024-02-04] MEDS: NSS (PRESERVATIVE FREE) 0.5 ML IV (08:53)
[2024-02-04 09:10] LABS: Glucose - Point of Care 179 mg/dl (70-99)
--- NOTE | 2024-02-04 09:12 | PTCARENOTE ---
report received. assessments per work list. patient awake, follows commands. wrist restraints for patient safety. patient tearful at times. monitor nsr, sedation, glycemic per work list. Dobbhoff tube unable to flush. when removed, was kinked.
replaced. xray taken. patient agitated post Dobbhoff reinsertion. medicated with ativan per prn order. incontinent urine and loose stool. ett suctions for scant blood tinged secretions. excessive clear oral secretions
[2024-02-04 10:09] LABS: Glucose - Point of Care 183 mg/dl (70-99)
[2024-02-04] MEDS: LANTUS 0.2 UNITS SC (11:21)
[2024-02-04 11:32] LABS: Glucose - Point of Care 151 mg/dl (70-99)
[2024-02-04 11:33] LABS: B.E. 10.9 mmol/L; HCO3 35.1 mmol/L (21-28); O2 Saturation % 96.8 % (94-98); PCO2 44 mmHg (32-35); PO2 72 mmHg (83-108); pH 7.51 (7.35-7.45)
[2024-02-04 12:15] LABS: Glucose - Point of Care 143 mg/dl (70-99)
[2024-02-04] MEDS: NOVOLOG FLEXPEN 8 UNITS SC ×3 (12:22→23:40)
[2024-02-04] MEDS: NOVOLOG FLEXPEN-MODERATE RESISTANCE SC ×2 (12:23→17:54)
--- NOTE | 2024-02-04 12:26 | PTCARENOTE ---
patient extubated to bipap per orders. strong cough. nods to questions but not verbalizing.patient research program manager at bedside, updated by hospitalist.
[2024-02-04] MEDS: ROXICODONE ORAL SOLUTION 5 MG TUBE ×2 (12:31→17:44)
--- NOTE | 2024-02-04 12:47 | W.PN.HOSP.TC ---
Today's Communication/Plan
-
Extubated to BiPAP.
Aspiration precautions
Speech and swallow relation
Remains with NG tube for medication administration and tube feeding.
Continue current psychiatric regimen.
Transition off IV insulin to subcutaneous regimen with basal bolus protocol. Has been off steroids for 24 hours.
Goals of care discussion
Assessment / Plan
Assessment / Plan
A/P: Patient is a 63y F with PMH significant for schizophrenia, DM-II and COPD who presents to ED complaining of cough and SOB.
Impression:
Acute hypoxic/hypercarbic respiratory failure
� Intubated 01/25/2024
-Extubated 02/04/2020
Nosocomial pneumonia with bilateral infiltrates.
Aspiration risk
Acute on chronic CHF preserved EF suspected.
AMBERLY, resolved
Steroid-induced hyperglycemia
Conditions prior to admission:
Schizophrenia
Bipolar disorder baseline borderline personality.
Type 2 diabetes.
Essential hypertension baseline morbid obesity with BMI of 36
Chronic CHF preserved EF
COPD/asthma
Obstructive sleep apnea on CPAP
GERD
Anemia of chronic disease/iron deficiency
Plan:
VDRF with prolonged intubation.
Respiratory status relatively stable on current vent settings.
Off sedation.
On preadmission psych: Neurologic regimen including Zyprexa, valproic acid, Klonopin, Prozac wire feeding tube.
ABG with mild respiratory acidosis.
Exam with no bronchospasm.
Follow-up chest x-ray with improvement of bilateral pneumonia.
Agreed to wean off steroids.
Extubated on 02/03.
Multifocal pneumonia, suspect aspiration versus nosocomial
CT chest 01/27 negative for PE. Bilateral lower lobe consolidations left greater than right representing combination of atelectasis and pneumonia.
Follow-up imaging with improved infiltrates
Procalcitonin normalized
Complete 7-day course of doxycycline.
Monitor closely for temperature curve and white count
Aspiration precautions
Chronic CHF preserved EF
Suspected volume overload
On oral Lasix
Consider additional diuresis to facilitate weaning.
Acute kidney injury secondary dehydration
Hyponatremia
Improved with volume expansion
Type 2 diabetes
Obesity with BMI of 36.
Hemoglobin A1c 6.8.
Currently off Farxiga and metformin.
Steroid-induced hyperglycemia requiring initiation of IV insulin drip critical care protocol.
Transition off insulin drip to subcutaneous regimen with addition of basal bolus protocol with serial Accu-Cheks
Hypothyroidism
Continue levothyroxine
Full code.
DVT prophylaxis Lovenox
02/03. Goals of care discussion with patient CRISTIN Tavarez. Given underlying medical psychiatric conditions patient has a high risk for recurrent event of respiratory failure and prolonged intubation. Plan is for psychiatric evaluation for
competency to facilitate decision-making on goals of care.
Anticipated Discharge: > 48 hours
Subjective/Interval History
-
Date of Service: February 04, 2024
Objective Data
-
Labs:
Laboratory Results
02/04/24 02/04/24
04:15 11:20
WBC 16.1 H
Hgb 9.4 L
Hct 28.6 L
Plt Count 226
HCO3 35.1 H
Sodium 141
Potassium 3.8
Chloride 102
Carbon Dioxide 34 H
BUN 35 H
Creatinine 0.6
Glucose 101 H
Calcium 8.4
Vital Signs:
Vital Signs
Temp Pulse Resp BP Pulse Ox
99.1 F 86 20 155/61 91
02/04/24 12:00 02/04/24 12:00 02/04/24 12:00 02/04/24 12:00 02/04/24 12:14
I&O
02/03/24 02/04/24 02/05/24
06:59 06:59 06:59
Intake Total 3110.2 / 3229.8 2696.7 / 3255.9 792.9 / 792.9
Output Total 2430 / 2430 825 / 825 950 / 950
Balance 680.2 / 799.8 1871.7 / 2430.9 -157.1 / -157.1
Physical Exam
-
General: Well Developed and No Apparent Distress
HEENT: Normocephalic, Atraumatic and Moist Mucous Membranes
Respiratory: Clear to Auscultation
Cardiac: Regular Rhythm and S1/S2; Negative Murmur, Rub or Gallop
GI: Soft, Nontender, Nondistended and Normal Bowel Sounds; Negative Organomegaly
Rectal: Deferred by Provider
Musculoskeletal: No Clubbing, No Cyanosis and No Edema
Skin: Negative Rash
Neuro: Awake, Alert (Following simple commands while on the vent) and Nonfocal/Grossly Intact
--- NOTE | 2024-02-04 12:51 | W.PN.INTV ---
Today's Communication / Plan
Recommendations
*
Assessment
-
ASSESSMENT:
64 yo Female With a relevant PMHx for Schizophrenia, DM II, COPD (On 2L of O2 at Home), previously (+) for COVID on 2023 and a remote Hx of Multiple Pulmonary Nodules, who presented to the ED with cough and worsening respiratory distress last
Saturday (2023), subsequently requiring Intubation and Mechanical Ventilation on 2023 after been found to be have Acute Respiratory Failure with Hypoxia and Associated Hypercapnia in the setting of previously established
Pulmonary Disease Process of Unknown etiology and suspected LLL Pneumonia.
PLAN:
NEURO:
RASS Between -3 & -4
Slowly decrease in Sedation initially this morning on Fentanyl 50
Currently Off Sedation
Ativan 1mg/0.5mg PRN
RASS Goal of Cero
Continue Multimodal Pain Control Analgesia PRN With Oxycodone PRN
RESPI:
SBT AM
Tolerating Well
Repeated ABG AM with SBT / Repeat later on as needed
Continue Aspiration Preocautions
D/C Solumedrol > 6 days of Therapy Completed
Continue Off ABX in the setting of Repeated Negative Cultures
Plan to repeat CXR every other day (*Tomorrow - 2023)
For progressive evaluation of current pulmonary disease process & further characterization
Continue Conservative Respiratory Measures
CARDIO:
Continue IV Lasix 40mg QD
Continue to closely monitor In/Outs
Continue to follow electrolytes for any Disarrangements in the setting of increase Diuresis
GI:
D/C Insulin Drip
Continue to Closely Monitor Glucose Levels
Continue PRN Bowel Regimen
Establish Tube Feeds Goal (Currently 50/50) / In the setting of Steroids Discontinuation
Continue Gi Ppx With Protonix 40mg IV QD / In the setting of Mechanical Ventilation and Hydrodynamical Instability
RENAL/:
Cont. to Monitor Creat
In/Outs
ID:
Continue Off ABX's
Closely monitor Objective Parameters for Infection
Watchful/waiting
HEMME/ONC:
Continue DVT Pppx With Levonox 40mg SubQ Q12hrs
ENDOCRINE:
Continue to Adm. Home Medications
Continue to Closely MonitorGlucose Level
Subjective Dataa
Subjective Data
Date of Service:
Date of Service: February 04, 2024
Pt was seen and evaluated this morning with the attending physician and the ICU team during morning rounds.
In NAD / AAOx0 / Sedated / RASS between -3 & -4
No Acute O/N events reported - Besides one mild/brief agitation episode, in which pt received 1mg of Ativan
Continue On Mechanical Ventilation / SBT this AM
Minimal Respiratory Secretions
Hemodynamically Stable
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
Objective Data
Data Reviewed
Vital Signs / I&O / Oxygen:
Vital Signs
Temp Pulse Resp BP Pulse Ox
37.3 C 86 20 155/61 91
02/04/24 12:00 02/04/24 12:00 02/04/24 12:00 02/04/24 12:00 02/04/24 12:14
Intake and Output
02/03/24 02/04/24 02/05/24
06:59 06:59 06:59
Intake Total 3110.2 / 3229.8 2696.7 / 3255.9 792.9 / 792.9
Output Total 2430 / 2430 825 / 825 950 / 950
Balance 680.2 / 799.8 1871.7 / 2430.9 -157.1 / -157.1
SaO2 [A/C] 93
SaO2 91
Nasal Cannula flow liters per 50
minute
Physical Exam
General: Respiratory Distress (negative), Comfortable, Chills (negative) and Sweats (negative)
HEENT: Normocephalic, Anicteric, Moist Mucous Membranes and Other (ETT in place)
Cardiovascular: S1-S2, Regular Rhythm and Peripheral Edema (Trace lower extremity edema bilaterally)
Respiratory: Clear, Wheeze (negative), Rhonchi (Left hemithorax), Non-Labored Respirations and ET Tube (Mechanical breath sounds heard bilaterally)
GI: Soft, Distended (Abdominal obesity), Non Tender and Normal Bowel Sounds
Neurology: Lethargic (Sedated on the ventilator) and Other (Pupils 2 mm bilaterally and sluggish)
Skin: Warm, Good Color, Cyanosis (negative), Jaundice (negative) and Rash (n)
Labs/Micro/Reports
Lab Data
02/04/24 04:15
02/04/24 04:15
Laboratory Results
02/04/24
11:20
pH 7.51 H
pCO2 44 H
pO2 72 L
HCO3 35.1 H
O2 Delivery Level
[2024-02-04 13:14] LABS: Glucose - Point of Care 113 mg/dl (70-99)
--- NOTE | 2024-02-04 14:06 | CM ---
CM following re: discharge planning.
Discussed in Rounds, reviewed pt's chart, met with pt. Per Rounds meeting, pt remains intubated and sedated, opens eyes to verbal stimuli, follows commands, 10th day on vent, continue supportive care.
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
[facility] educational program director rosalinda Tavarez (cell: [phone]) is next of kin.
D/C plan: Uncertain at this time and will depend on pt's progress.
CM will follow with discharge plan updates as hospitalization progresses
--- NOTE | 2024-02-04 16:13 | PTCARENOTE ---
patient reassessed. tolerating bipap. easily arousable, following commands. able to state 'I'm hungry', not oriented to time of place. lungs with coarse breath sounds. moist non productive cough. bed alarm activated. call azevedo in hand. sleeping
short periods
[2024-02-04] MEDS: LOVENOX 40 MG SC (17:44)
[2024-02-04 18:04] LABS: Glucose - Point of Care 149 mg/dl (70-99)
[2024-02-04] MEDS: FLOVENT 110 MCG INHALER 2 PUFF INH (20:14)
[2024-02-04] MEDS: KLONOPIN 1.5 MG TUBE (21:07)
[2024-02-04] MEDS: ZYPREXA 10 MG TUBE (21:07)
[2024-02-04 23:25] LABS: Glucose - Point of Care 162 mg/dl (70-99)
[2024-02-04] MEDS: NOVOLOG FLEXPEN-MODERATE RESISTANCE 1 UNITS SC (23:40)
[2024-02-04] MEDS: ROXICODONE 5 MG PO (23:41)
[2024-02-05] VITALS (24 sets, daily range): BP systolic 109–174; BP diastolic 49–95; PULSE 2–80; BMI 35.6
[2024-02-05 00:06] LABS: B.E. 10.6 mmol/L; HCO3 36.3 mmol/L (21-28); PCO2 51 mmHg (32-35); PO2 74 mmHg (83-108); pH 7.46 (7.35-7.45)
[2024-02-05 00:07] LABS: O2 Saturation % 95.5 % (94-98)
[2024-02-05 04:51] LABS: Hematocrit 29.7 % (37.0-47.0); Hemoglobin 9.7 g/dL (12.0-16.0); Mean Corp Hgb Conc. 32.7 g/dL (33.0-37.0); Mean Corpuscular Hgb 34.4 pg (27.0-31.0); Mean Corpuscular Volume 105.3 fL (81.0-99.0); Mean Platelet Volume 10.1 fL (7.4-10.4); Platelet Count 246 10^3/uL (130-400); Red Blood Cell Count 2.82 10^6/uL (4.20-5.40); Red Cell Dist. Width 15.2 % (11.5-14.5); White Blood Cell Count 12.9 10^3/uL (4.8-10.8)
[2024-02-05 05:05] LABS: Blood Urea Nitrogen 29 mg/dl (7-17); Calcium 8.8 mg/dl (8.4-10.2); Carbon Dioxide 34 mmol/L (22-30); Chloride 100 mmol/L (98-107); Estimated Creatinine Clearance 102 ml/min; Glucose 139 mg/dl (70-99); Magnesium 1.7 mg/dl (1.6-2.3); Potassium 3.9 mmol/L (3.5-5.1); Sodium 141 mmol/L (135-145); eGFR > 60.00
--- NOTE | 2024-02-05 05:37 | DOWNTIME ---
There was a [facility] Client [employer]q[facility] Downtime on 02/05/2024 from 0100 to 02/05/2024 at 0350. Downtime documentation of patient's care, including medication administrations, has been reconciled in the electronic record per guidelines. Refer to the
patient's paper chart under the miscellaneous tab to see printed paper medication records and downtime forms.
--- NOTE | 2024-02-05 05:53 | PTCARENOTE ---
Assumed care of patient at 1900. Nursing assessment completed and as documented, see worklist for assessment. Patient able to mouth words such as name and answers orientation questions appropriately, HAN ALEGRIA. SR on monitor. Patient on BiPAP 23/07
10L sats 88-94%. Remains on TF Vital AF 1.2 at goal of 50ml/hr with 50ml/hr free water flush via L nare DHT, marked at 65cm. Purewick in place draining lay urine. Medications given through DHT without difficulty. Left and right midline in place,
positive blood return noted to right side. PRN oxy given for CPOT score of 5, see MAR. VSS, call azevedo within reach, care ongoing.
[2024-02-05 06:11] LABS: Glucose - Point of Care 152 mg/dl (70-99)
[2024-02-05] MEDS: SYNTHROID 75 MCG TUBE (06:19)
[2024-02-05] MEDS: NOVOLOG FLEXPEN 8 UNITS SC ×3 (06:20→18:13)
[2024-02-05] MEDS: NOVOLOG FLEXPEN-MODERATE RESISTANCE 1 UNITS SC ×2 (06:20→14:14)
--- NOTE | 2024-02-05 07:11 | W.PN.INTV ---
Today's Communication / Plan
Recommendations
Doing well post extubation, on supplemental O2
CPAP to continue at night, reduce sedating meds
Aggressive PT/OT needed, OOB
Diuresis ongoing
Can transfer to floors today, we will sign off upon transfer
Assessment
-
63-year-old female with a history of underlying schizophrenia, diabetes, asthma, presented with cough and shortness of breath noted mucous plugs and pneumonia-pulmonary consulted for pneumonia/COPD/mucous plugs 01/24/24. She had worsening
respiratory distress and was transferred to the ICU on the evening of 01/23 and intubated on 01/25/2024.
Impression:
Acute respiratory failure with hypoxia + hypercapnia now on mechanical ventilation
(intubated 01/25/2024)
Metabolic alkalosis due to chronic hypercapnia with CO2 now being acutely blown off s/p intubation
Left lower lobe pneumonia-nosocomial
Shock - due to sedation in setting of sepsis - shock state now resolved
Aspiration risk.
CHF-preserved EF with normal RV size and function
Mild aortic stenosis
Asthma with acute exacerbation due to pneumonia
Leukocytosis - now resolved
Anemia - stable
DM type II c/b hyperglycemia
AMBERLY (baseline Cr 0.8) - worsening
History of mild restrictive lung disease (post�bronchodilator FVC: 69% / 2.04 L via spirometry on 12/12/2020)
Conditions present prior to admission:
Bipolar.
Schizophrenia.
Borderline personality disorder
Diabetes.
Hypertension.
Hypothyroid.
Obesity.
COPD/asthma overlap.
CIELO on CPAP
Anemia.
GERD.
Chronic heart failure, preserved EF.
Appendectomy. Cholecystectomy
Plan
Sedation: Fent, Prop--off now
Zyprexa daily, valproate, Klonopin, Prozac resumed from home meds--she has history of psychiatric disorders
Ativan PRN as needed, takes at home
Reduce her meds that may be causing sedation
Opiate w/d course added, COWS monitoring
RASS goal 0 to -1
CHF management
Continue diuresis continues as tolerated-even to slightly positive I's and O's last 24 hours
Monitor renal function, electrolytes, intake/output, lower extremity edema and weight
Only reduced from 94kg to 92kg, consideration to increase diuretic dose to BID if needed
Cardiology following-correspondence reviewed-signed off 01/25/2024
Intubated for acute hypoxia/hypercarbia, extubated 02/04/24
She has history of O2 use at home
Chest x-ray 01/31/2024-improvement in right lower lobe pneumonia, no change in what represents pneumonia in the mid to lower left lungs
Recheck chest x-ray 02/03/2024
CT chest 01/28/2024-summarized below
Continue with nebulizers-DuoNebs
CPAP at night
NPO, DHT in with TFs, tolerating goal
Speech eval to advance PO diet
Aspiration precautions
GI prophylaxis-on pantoprazole while on the ventilator and hypotensive
Renal function normal, no prior history of renal disease
Replace electrolytes as needed
Cultures reviewed
Urine Legionella and streptococcal antigens negative
Sputum culture 01/25/2024-usual respiratory jennifer
MRSA screen negative
Influenza negative
Blood cultures no growth
Empiric antibiotics continue-continue meropenem, last dose of doxycycline 01/30/2024, completed total of 7 days of abx
Would observe off for now
Infectious disease following-correspondence reviewed
Follow leukocytosis and temperature curve as well as clinically-secretions/radiographs
CBC stable, hb in 9 range
Follow hemoglobin and platelet count
Transfuse as needed for Hb <7
DVT prophylaxis-on Lovenox
Bedside range of motion, eventual physical therapy
IDDM, on insulin at home
Elevated while on steroids
Follow blood sugar
Insulin drip transitioned to SQ
Diabetic nurse practitioner following-correspondence reviewed
Family Discussions
She has a Intermediate director, Mirian Tavarez. Contacted for patient's advance directives as she is now Day 10 on the vent without significant progress in extubation.
Studies:
Chest x-ray 01/28/2024-left basilar opacification without change
Chest x-ray 01/29/2024-no significant changes with multifocal pneumonia and atelectasis
CT chest 01/21/24-multiple pulmonary nodules stable dating back to 02/06/23-over 10 nodules, less than [address] 01/28/2024-no central pulmonary emboli, bilateral lower lobe consolidations left greater than right likely representing atelectasis and pneumonia
Chest x-ray 01/24/24-large dense lower lobe and lingular airspace disease consistent with pneumonia
CXR 01/25/2024: Endotracheal tube tip projects in mid thoracic trachea. Nasoenteric tube courses below the diaphragm, tip is excluded by collimation.
Unchanged left mid/lower lung opacity which may represent pneumonia.
ABG 01/30/24-30 3/84/7.52-decrease minute ventilation-rate decreased to 12
VBG 01/31/24-40 6/124/7.4
VBG 02/01/24-38/180/7.48-pulse oximetry does not correlate and routinely underestimates PaO2
ABG 01/29/24-40 8/183/7 0.4-100% saturation on ABG and only 93% saturation on peripheral monitor
ECHO 01/24/24- Normal left ventricular size, wall thickness and systolic function. LV ejection fraction is 60-65% by visual estimation. Normal right ventricular size and function. Mild aortic stenosis.
Estimated pulmonary artery pressure of 38 mmHg assuming a right atrial pressure of 3 mmHg. Compared to prior from February 12, 2022, mild aortic stenosis is seen.
-----
Critical Care time 35 mins -- The patient is admitted for acute critical illness for the treatment of vital organ failure and/or prevention of further life-threatening conditions. Total care includes time spent in review of history, physical exam,
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
Subjective Dataa
Subjective Data
Date of Service:
Date of Service: February 05, 2024
Chief Complaint: Pie Baker Follow Up and Pulmonary Follow Up
Subjective:
No acute events ON, tolerated extubation
Still somewhat lethargic but arousable
Objective Data
Data Reviewed
Vital Signs / I&O / Oxygen:
Vital Signs
Temp Pulse Resp BP Pulse Ox
98.7 F 78 31 131/68 89
02/05/24 03:30 02/05/24 06:00 02/05/24 06:00 02/05/24 06:00 02/05/24 06:00
Intake and Output
02/04/24 02/05/24 02/06/24
06:59 06:59 06:59
Intake Total 2696.7 / 3255.9 2744.4 / 2744.4
Output Total 825 / 825 2049 / 2049
Balance 1871.7 / 2430.9 694.4 / 694.4
SaO2 [A/C] 93
SaO2 89
Nasal Cannula flow liters per 50
minute
Physical Exam
General: Respiratory Distress (negative), Comfortable, Chills (negative) and Sweats (negative)
HEENT: Normocephalic, Anicteric, Moist Mucous Membranes and Other (edentulous)
Cardiovascular: S1-S2, Regular Rhythm and Peripheral Edema (Trace lower extremity edema bilaterally)
Respiratory: Clear, Wheeze (negative) and Non-Labored Respirations
GI: Soft, Distended (Abdominal obesity), Non Tender and Normal Bowel Sounds
Neurology: Awake, Alert, Oriented, Lethargic (but arousable) and Other (Pupils 2 mm bilaterally and sluggish)
Skin: Warm, Good Color, Cyanosis (negative), Jaundice (negative) and Rash (n)
Labs/Micro/Reports
Lab Data
02/05/24 04:30
02/05/24 04:30
Laboratory Results
02/04/24 02/05/24
11:20 00:01
pH 7.51 H 7.46 H
pCO2 44 H 51 H
pO2 72 L 74 L
HCO3 35.1 H 36.3 H
O2 Delivery Level
--- NOTE | 2024-02-05 07:43 | PTCARENOTE ---
0700 pt in bed on BIPAP 15/510L of O2; SR 81 S1/S2; BP via Rt FA : 128/64 RR 33 POX 91%/10L. Abdomen soft round non tender. Incontinent of urine. Purwick in place draining lay urine 100cc; pedal pulses palatable.
--- NOTE | 2024-02-05 07:49 | PN.DE.MGMTRT ---
Insulin Management
- -
02/05/2024: Diabetes Management Follow up:
63-year-old female who presented w/cough and SOB, due to pneumonia/COPD/mucous plugs on 01/24/24. She had worsening respiratory distress and was transferred to the ICU on the evening of 01/23 and intubated on 01/25/2024 due to Acute respiratory
failure with hypoxia and hypercapnia.
PMH: COPD, Asthma, Schizophrenia and T2DM. Chart review indicates she was taking Metformin 1000mg BID, Farxiga 10mg daily, Lantus 15 units @ HS and Apidra 12 units AC. A1C 6.8%, Cr 1.3, eGFR 46.21
Patient condition improving, extubated 02/03, awakens but is unable to stay awake for discussion.
02/03 Remains on Tube feeds @50cc/hr. Transitioned off drip to sq insulin. Lantus 20 units given ~ 11am insulin drip off 2 hours after lantus administered. 8 units novolog Q 6 hours with low corrective started.
02/04 Remains on tube feeds, extubated. Transitioned yesterday from glycemic protocol insulin infusion, glucose range 149 to 162. Will continue lantus 20 units in AM with novolog 8 units Q 6 hours and low corrective.
Discussed with patient's nurse
Diabetes History
- -
Type of Diabetes: 2 requiring insulin
Pre-Admission Diabetes Regimen
02/05/24
04:30
Creatinine 0.5 L
Lab Results
Hemoglobin A1c 6.8 % (4.0-5.6) H 01/25/24 06:17
Insulin Pump Settings
IP Diabetes Regimen
02/04/24 02/04/24 02/04/24
08:12 08:59 09:57
Glucose
POC Glucose 198 H 179 H 183 H
02/04/24 02/04/24 02/04/24
11:21 11:58 13:03
Glucose
POC Glucose 151 H 143 H 113 H
02/04/24 02/04/24 02/05/24
17:53 23:14 04:30
Glucose 139 H
POC Glucose 149 H 162 H
02/05/24
06:00
Glucose
POC Glucose 152 H
Meal type: Breakfast
Patient Education
[2024-02-05] MEDS: ZETIA 10 MG TUBE (07:52)
[2024-02-05] MEDS: PROZAC 20 MG TUBE (07:52)
[2024-02-05] MEDS: PREVACID 30 MG TUBE (07:52)
[2024-02-05] MEDS: LASIX 40 MG PO (07:52)
[2024-02-05] MEDS: DEPAKENE 500 MG TUBE ×3 (09:18→21:26)
[2024-02-05] MEDS: LANTUS 0.2 UNITS SC (09:20)
[2024-02-05] MEDS: FLOVENT 110 MCG INHALER 2 PUFF INH ×2 (09:23→19:06)
--- NOTE | 2024-02-05 10:24 | CM ---
Addendum entered by Jamia Villeda 02/05/24 14:09:
CM will review with [facility]iaison if patient would be appropriate as an alternative to LTACH if patient does not meet eligibility.
Addendum entered by Jamia Villeda 02/05/24 13:30:
Patient seen again in ICU room. Patient updated about request for LTACH to review her records to see if she could be accepted. CM updated patient about [facility] wanting to take her back, per Mirian but she needed to be independent of adl's prior
to return. CM will send clinical information to L[facility] at [facility] to see if patient remains eligible and to confirm insurance eligibility. Per physician patient with consult to Psych.
Addendum entered by Jamia Villeda 02/05/24 12:28:
CM spoke with Mirian at [facility] who indicated that she is not POA or acting guardian. Mirian is the DON at [facility] and stated that the facility is unwilling to make decisions for patient. Per Mirian their documentation indicated that patient
wants all possible treatment. Mirian agreed to fax to CM all documents. CM will talk to patient about options and send referral if patient in agreement.
Addendum entered by Jamia Villeda 02/05/24 11:28:
Radha from [facility] called to state that she was following patient pending LTACH transfer needs. CM will review with patient and update clinicals in all scripts pending patient consent.
Addendum entered by Jamia Villeda 02/05/24 11:00:
Per physician patient is stable and for transfer out of ICU today. CM will continue to follow for discharge planning needs.
Original Note:
Patient seen at bedside, tearful but off of Vent. Patient indicated that she was apprehensive about being in the ICU. Patient is from [facility] and will needs CM will continue to follow for discharge planning needs.
Plan; pending treatment plan, uncertain at this time.
--- NOTE | 2024-02-05 10:50 | PTOTSP ---
Speech Language Pathology
Pt seen for dysphagia tx. Decreased speech intelligibility noted with pt only 20% intelligible in known contexts. P.O. trials of ice chips, thin liquids via straw, and puree provided. Adequate oral phase with limited consistencies trialed. No
overt signs of aspiration.
However, pt is at a high risk for silent aspiration. Pt extubated yesterday after 10 day intubation, has recurrent PNA, and hx of muscular dystrophy. Would recommend instrumental swallowing assessment prior to considering initiating P.O. diet.
DHT currently clogged.
Recommend:
(1) VSE. Pt adamantly refusing at this time, becoming tearful. Spoke with MD who is ordering pysch
(2) NPO until VSE able to be completed
(3) Allow meds in puree until DHT functional
(4) Allow ice chips post oral care given supervision per Aspiration Risk Hydration Protocol (ARHP)
(5) [employer] to continue to follow
[2024-02-05 11:48] LABS: Glucose - Point of Care 88 mg/dl (70-99)
[2024-02-05] MEDS: MIRALAX TUBE (12:48)
[2024-02-05] MEDS: NOVOLOG FLEXPEN-MODERATE RESISTANCE SC ×2 (12:49→18:13)
--- NOTE | 2024-02-05 13:41 | PTCARENOTE ---
transfer via [facility] lift to [place] chair. tolerating OOB chair well. awake and alert, speech unclear. On 3L via nasal canula. Lungs diminished. occasional non-productive cough. blood surgar 88
[2024-02-05 14:27] LABS: Glucose - Point of Care 171 mg/dl (70-99)
--- NOTE | 2024-02-05 14:31 | W.PN.HOSP.TC ---
Today's Communication/Plan
-
Continue aspiration precautions
N.p.o.
DHT feeding
Continue current psychiatric regimen.
Psychiatry assessment for competency
Continue subcutaneous insulin with serial Accu-Cheks
Assessment / Plan
Assessment / Plan
A/P: Patient is a 63y F with PMH significant for schizophrenia, DM-II and COPD who presents to ED complaining of cough and SOB.
Impression:
Acute hypoxic/hypercarbic respiratory failure
� Intubated 01/25/2024
-Extubated 02/04/2024
Nosocomial pneumonia with bilateral infiltrates.
Aspiration risk
Acute on chronic CHF preserved EF suspected.
AMBERLY, resolved
Steroid-induced hyperglycemia
Conditions prior to admission:
Schizophrenia
Bipolar disorder baseline borderline personality.
Type 2 diabetes.
Essential hypertension baseline morbid obesity with BMI of 36
Chronic CHF preserved EF
COPD/asthma
Obstructive sleep apnea on CPAP
GERD
Anemia of chronic disease/iron deficiency
Plan:
VDRF with prolonged intubation.
Hypercarbic and hypoxic respiratory failure with contribution of aspiration pneumonia.
Extubated on 02/03.
Doing well
Continue CPAP
Aspiration precautions
Multifocal pneumonia, suspect aspiration versus nosocomial
CT chest 01/27 negative for PE. Bilateral lower lobe consolidations left greater than right representing combination of atelectasis and pneumonia.
Follow-up imaging with improved infiltrates
Procalcitonin normalized
Completed 7-day course of doxycycline.
Monitor closely for temperature curve and white count
Remains high aspiration risk.
Speech evaluation appreciated with recommendation of VSE, although patient declined.
DHT tube feeding (clogged HD to be replaced today on 02/04)
Chronic CHF preserved EF
Suspected volume overload
On oral Lasix
Consider additional diuresis to facilitate weaning.
Acute kidney injury secondary dehydration
Hyponatremia
Improved with volume expansion
Type 2 diabetes
Obesity with BMI of 36.
Hemoglobin A1c 6.8.
Currently off Farxiga and metformin.
Steroid-induced hyperglycemia requiring initiation of IV insulin drip critical care protocol.
Transitioned off insulin drip to subcutaneous regimen with addition of basal bolus protocol with serial Accu-Cheks
Hypothyroidism
Continue levothyroxine
Full code.
DVT prophylaxis Lovenox
02/03. Goals of care discussion with patient CRISTIN Tavarez. Given underlying medical psychiatric conditions patient has a high risk for recurrent event of respiratory failure and prolonged intubation. Plan is for psychiatric evaluation for
competency to facilitate decision-making on goals of care.
Psychiatry consult for competency assessment placed
Anticipated Discharge: > 48 hours
Subjective/Interval History
-
Date of Service: February 05, 2024
Objective Data
-
Labs:
Laboratory Results
02/05/24
04:30
WBC 12.9 H
Hgb 9.7 L
Hct 29.7 L
Plt Count 246
Sodium 141
Potassium 3.9
Chloride 100
Carbon Dioxide 34 H
BUN 29 H
Creatinine 0.5 L
Glucose 139 H
Calcium 8.8
Vital Signs:
Vital Signs
Temp Pulse Resp BP Pulse Ox
98.2 F 81 32 126/64 94
02/05/24 11:33 02/05/24 13:00 02/05/24 13:00 02/05/24 13:00 02/05/24 13:41
I&O
02/04/24 02/05/24 02/06/24
06:59 06:59 06:59
Intake Total 2696.7 / 3255.9 2744.4 / 2744.4 800 / 800
Output Total 825 / 825 2050 / 2050 1700 / 1700
Balance 1871.7 / 2430.9 694.4 / 694.4 -900 / -900
Physical Exam
-
General: Well Developed and No Apparent Distress
HEENT: Normocephalic, Atraumatic and Moist Mucous Membranes
Respiratory: Clear to Auscultation
Cardiac: Regular Rhythm and S1/S2; Negative Murmur, Rub or Gallop
GI: Soft, Nontender, Nondistended and Normal Bowel Sounds; Negative Organomegaly
Rectal: Deferred by Provider
Musculoskeletal: No Clubbing, No Cyanosis and No Edema
Skin: Negative Rash
Neuro: Awake, Alert (Following simple commands while on the vent) and Nonfocal/Grossly Intact
--- NOTE | 2024-02-05 15:53 | CON.MD ---
Consultation - Medical
-
64 yr old F w/ PMH of schizophrenia, HTN, chronic CHF w/ preserved EF, CIELO on CPAP, DM-II and COPD who presented to ED w/ complaints of cough & SOB, found to be in acute hypoxic/hypercarbic respiratory failure & intubated 01/24 w/ extubation 02/03.
Also w/ nosocomial PNA w/ b/l infiltrates. Pt refused speech evaluation & VSE and is currently on DHT feeding & a high aspiration risk. Psychiatry was consulted for assessment of capacity for current medical treatment.
Pt is sitting up in chair, appears to be sleeping. Is arousable easily but unable to maintain attention for more than a few moments. Will quickly start to doze off or else look to the hallway whenever there are noises by the door. Much of the
interview stares blankly at myself while I speak, and will respond with 'huh?' or not at all. SHe is able to say she is at [facility] and that the year is 2023, however does not know why she is in the hospital. Attempted to explain several
times but pt was unable to meaningful participate in this discussion (as noted above). She is unable to meaningfully express herself, nor is she able to meaningfully demonstrate an understanding of why she is in the hospital, what kind of treatment
she is getting, what kind of treatment is being recommended and what the risks vs benefits are of agreeing or refusing care.
Pt is well known to us, see Dr. Gibbs's Consultation note below from 10/31/23 for further details regarding psychiatric history.
'past psych hx patient has hx of numerouse psych admits [including multiple 302's]. [facility] a [facility] a [facility]. she has hx self injurious behavior and aggression towards
others. meds as above. borderline personality had been added to her dx
substance abuse none
fh non contributory
medical hx patient w hx iddm hypothyroid htn copd and is o2 dependent gerd gout chf multiple allergies (re psych list includes haldol proloxin) noted mcv is elevated qtc 464 bp 154/45 labs so far otherwise not remarkable others pending she
was seen here at ed on
10/16 for fever and dc to home same day.
social hx resides at [facility]'
Schizoaffective d/o, per hx
MSE: calm,minimal eye contact, unable to meaningfully cooperate,speech is ,minimal and slurring,due to lack of response unable to assess mood, thought process, thought content, memory. affect is blunted & sleepy. Oriented to place and year. Memory
not formally tested. Unable to meaningfully assess insight/judgement however based on presentation of lack of meaningful interaction would surmise that insight/judgement is poor.
Continue current psychotropics
Ordered valproic acid level, last level from 11/01/23 at 94.1
I am unable to meaningfully fully do a capacity assessment due to pts inability to meaningfully participate in interview at this time. I suspect that she was not refusing speech & VSE as much as she just was unable to participate, likely due to
combination of sedation and residual delirium. If there is a living will or POA/next of kin, that should be used for the time being until pt is more lucid and able to interact more meaningfully.
[2024-02-05] MEDS: LOVENOX 40 MG SC (16:15)
--- NOTE | 2024-02-05 17:00 | PTCARENOTE ---
Patient transfer to [address] [place] [address] bed. Report given to Leonard. At time of transfer pt awake and alert to time and place. Issues with cognition at baseline.
SR 70's SBP 150's
Abdomen soft round. Incontinent of urine and bowerl. RT and left midle line. Left nare Dopholf patent, TF vital infusing per current order.
[2024-02-05 18:10] LABS: Glucose - Point of Care 147 mg/dl (70-99)
[2024-02-05] MEDS: KLONOPIN 1 MG TUBE (21:26)
[2024-02-05] MEDS: ZYPREXA 10 MG TUBE (21:26)
[2024-02-06] VITALS (8 sets, daily range): BP systolic 115–170; BP diastolic 65–81; PULSE 3–88; O2SAT 94; BMI 36.5
[2024-02-06 00:33] LABS: Glucose - Point of Care 160 mg/dl (70-99)
[2024-02-06] MEDS: NOVOLOG FLEXPEN 8 UNITS SC ×4 (00:41→17:49)
[2024-02-06] MEDS: NOVOLOG FLEXPEN-MODERATE RESISTANCE 1 UNITS SC ×2 (00:42→17:49)
[2024-02-06 05:18] LABS: Depakane 27.9 ug/ml (50.0-120.0)
[2024-02-06 06:12] LABS: Glucose - Point of Care 147 mg/dl (70-99)
[2024-02-06] MEDS: NOVOLOG FLEXPEN-MODERATE RESISTANCE SC (06:16)
--- NOTE | 2024-02-06 08:42 | W.PN.HOSP.TC ---
Today's Communication/Plan
-
Oral feeding started, hopefully can wean off tubed feeds -- would appreciate dietary re-evaluation
Appreciate psychiatry evaluation
Assessment / Plan
Assessment / Plan
Physical Exam
General: Well Developed and No Apparent Distress
HEENT: Normocephalic
Respiratory: Clear to Auscultation Bilaterally
Cardiac: Regular Rhythm and S1/S2
GI: Soft, Nontender, Nondistended and Normal Bowel Sounds
Musculoskeletal: No Cyanosis and No Edema
Skin: Warm. Dry.
Neuro: Awake, Alert (Following simple commands while on the vent) and Nonfocal/Grossly Intact
Assessment/Plan
Patient is a 63y F with PMH significant for schizophrenia, DM-II and COPD who presents to ED complaining of cough and SOB.
Impression:
Acute hypoxic/hypercarbic respiratory failure
� Intubated 01/25/2024
-Extubated 02/04/2024
Nosocomial pneumonia with bilateral infiltrates.
Aspiration risk
Acute on chronic CHF preserved EF suspected.
AMBERLY, resolved
Steroid-induced hyperglycemia
Conditions prior to admission:
Schizophrenia
Bipolar disorder baseline borderline personality.
Type 2 diabetes.
Essential hypertension baseline morbid obesity with BMI of 36
Chronic CHF preserved EF
COPD/asthma
Obstructive sleep apnea on CPAP
GERD
Anemia of chronic disease/iron deficiency
Plan:
VDRF with prolonged intubation.
Hypercarbic and hypoxic respiratory failure with contribution of aspiration pneumonia.
Extubated on 02/03.
Doing well
Continue CPAP
Aspiration precautions
Multifocal pneumonia, suspect aspiration versus nosocomial
CT chest 01/27 negative for PE. Bilateral lower lobe consolidations left greater than right representing combination of atelectasis and pneumonia.
Follow-up imaging with improved infiltrates
Procalcitonin normalized
Completed 7-day course of doxycycline.
Monitor closely for temperature curve and white count
Remains high aspiration risk.
Speech evaluation appreciated with recommendation of VSE.
DHT tube feeding (clogged HD replaced on 02/04?)
Patient participated in Speech Therapy evaluation on 02/06/24 and pureed diet with thin liquids was started.
Chronic CHF preserved EF
Suspected volume overload
On oral Lasix
Consider additional diuresis to facilitate weaning.
Acute kidney injury secondary dehydration
Hyponatremia
Improved with volume expansion
Type 2 diabetes mellitus
Obesity with BMI of 36.
Hemoglobin A1c 6.8.
Currently off Farxiga and metformin.
Steroid-induced hyperglycemia requiring initiation of IV insulin drip critical care protocol.
Transitioned off insulin drip to subcutaneous regimen with addition of basal bolus protocol with serial Accu-Cheks
Hypothyroidism
Continue levothyroxine
Full code.
Diet: Started puree/thin liquids on 02/06/24 as per Speech evaluation and recommendations. Continue Aspiration precautions
DVT prophylaxis Lovenox
02/03. Dr. Sumner had goals of care discussion with patient CRISTIN Tavarez. Given underlying medical psychiatric conditions patient has a high risk for recurrent event of respiratory failure and prolonged intubation. Plan is for psychiatric
evaluation for competency to facilitate decision-making on goals of care.
Psychiatry consult for competency assessment placed -- however psychiatry unable to meaningfully fully do a capacity assessment due to patient's inability to meaningfully participate.
Anticipated Discharge: > 48 hours
Subjective/Interval History
-
Date of Service: February 06, 2024
Patient was seen and examined. She denied any fever, chest pain, SOB or any new leg swelling.
Objective Data
-
Vital Signs:
Vital Signs
Temp Pulse Resp BP Pulse Ox
98.5 F 74 22 143/70 92
02/06/24 07:00 02/06/24 07:00 02/06/24 07:00 02/06/24 07:00 02/06/24 07:00
I&O
02/05/24 02/06/24 02/07/24
06:59 06:59 06:59
Intake Total 2744.4 / 2744.4 2099
Output Total 2049 / 2049
Balance 694.4 / 694.4 125 / 125
[2024-02-06] MEDS: FLOVENT 110 MCG INHALER 2 PUFF INH ×2 (08:57→18:03)
[2024-02-06] MEDS: LASIX 40 MG PO (09:16)
[2024-02-06] MEDS: PREVACID 30 MG TUBE (09:16)
[2024-02-06] MEDS: LANTUS 0.2 UNITS SC (09:16)
[2024-02-06] MEDS: ZETIA 10 MG TUBE (09:16)
[2024-02-06] MEDS: PROZAC 20 MG TUBE (09:16)
[2024-02-06] MEDS: SYNTHROID 75 MCG TUBE (09:16)
[2024-02-06] MEDS: DEPAKENE 500 MG TUBE ×2 (09:17→15:58)
[2024-02-06] MEDS: MIRALAX 17 GRAMS TUBE (09:17)
--- NOTE | 2024-02-06 10:20 | W.PN.UPDATE ---
Update Note
Progress Note Update
Psychiatry follow up. Patient is lying in bed and denies complaints at this time. Per nursing agitation likely related to not being able to eat yesterday. She is now on a puree diet and feeling better.
VPA 02/05 27.9
MSE- obese, lying in bed. good eye contact. impoverished speech/thought. mood is 'ok'. denies SI/HI/AVH. Poor I/J
A/P- 64 yo female with schizoaffective disorder and borderline personality, doing better today. continue olanzapine 10mg HS, Prozac 20mg daily, klonopin 1mg HS and depakote 500mg TID. Monitor mood/behavior.
[2024-02-06 12:05] LABS: Glucose - Point of Care 210 mg/dl (70-99)
[2024-02-06] MEDS: NOVOLOG FLEXPEN-MODERATE RESISTANCE 3 UNITS SC (12:33)
[2024-02-06] MEDS: ZOFRAN 4 MG IV (14:36)
[2024-02-06 17:48] LABS: Glucose - Point of Care 151 mg/dl (70-99)
[2024-02-06] MEDS: LOVENOX 40 MG SC (17:48)
[2024-02-06] MEDS: DEPAKENE 500 MG PO (21:09)
[2024-02-06] MEDS: KLONOPIN 1 MG PO (21:09)
[2024-02-06] MEDS: ZYPREXA 10 MG PO (21:09)
[2024-02-06 21:11] LABS: Glucose - Point of Care 152 mg/dl (70-99)
[2024-02-07] VITALS (8 sets, daily range): BP systolic 105–165; BP diastolic 65–84; PULSE 3–84; O2SAT 92; BMI 36.1
[2024-02-07] MEDS: SYNTHROID 75 MCG PO (05:22)
[2024-02-07] MEDS: FLOVENT 110 MCG INHALER 2 PUFF INH ×2 (07:11→19:45)
[2024-02-07 08:01] LABS: Glucose - Point of Care 174 mg/dl (70-99)
--- NOTE | 2024-02-07 08:45 | PTOTSP ---
Speech Language Pathology
VIDEOFLUOROSCOPIC SWALLOWING EXAMINATION (VSE) completed. DHT in place for study. Decreased visibility during study secondary to body habitus. Provided liquids via straw given positioning and inability to self-feed during study. Mild
oropharyngeal dysphagia noted. Supraglottic penetration which fully cleared (PAS 2) noted with mildly thick liquids via tsp and consecutive straw sips. Supraglottic penetration which did not clear (PAS 3) noted with thin liquid via single and
consecutive straw sips as well as mildly thick liquids via single straw sip. No significant pharyngeal residue noted.
Yellowish white coating noted on tongue. Question thrush.
Recommend:
(1) Upgrade to IDDSI Level 6 (soft/bite-sized) and thin liquids
(2) Aspiration precautions: full supervision for slow rate, single sips only, cue for intermittent cough/reswallow every 5-10 bites/sips
(3) Meds whole in puree
(4) MICROBIOLOGY TEACHER to continue to follow
--- NOTE | 2024-02-07 09:02 | PN.DE.MGMTRT ---
Insulin Management
- -
02/07/2024: Diabetes Management F/u:
63-year-old female who presented w/cough and SOB, due to pneumonia/COPD/mucous plugs on 01/24/24. She had worsening respiratory distress and was transferred to the ICU on the evening of 01/23 and intubated on 01/25/2024 due to Acute respiratory
failure with hypoxia and hypercapnia.
PMH: COPD, Asthma, Schizophrenia and T2DM. Chart review indicates she was taking Metformin 1000mg BID, Farxiga 10mg daily, Lantus 15 units @ HS and Apidra 12 units AC. A1C 6.8%, Cr 1.3, eGFR 46.21
Patient extubated 02/03, awake, alert but unable to discuss diabetes management.
Remains on Tube feeds @50cc/hr but awaiting speech eval to likely start oral diet.
Current diabetes regimen includes: Lantus 20 units @ HS and NovoLog 8 units Q 6 hours with low corrective
Glucose stable without excursions, 147 to 210, FBG 147 this AM.
Will make no changes to current regimen: Lantus 20 units in AM with NovoLog 8 units Q 6 hours and low corrective.
Will change to AC/HS basal bolus insulin once TF stopped and started on a diet. Will closely follow and make needed adjustments
Diabetes History
- -
Type of Diabetes: 2 requiring insulin
Pre-Admission Diabetes Regimen
Lab Results
Hemoglobin A1c 6.8 % (4.0-5.6) H 01/25/24 06:17
Insulin Pump Settings
IP Diabetes Regimen
02/06/24 02/06/24 02/06/24
12:04 17:46 21:06
POC Glucose 210 H 151 H 152 H
02/07/24
08:00
POC Glucose 174 H
Patient Education
[2024-02-07] MEDS: NOVOLOG FLEXPEN 8 UNITS SC ×3 (09:28→17:32)
[2024-02-07] MEDS: NOVOLOG FLEXPEN-MODERATE RESISTANCE 1 UNITS SC ×2 (09:28→12:01)
[2024-02-07] MEDS: DEPAKENE 500 MG PO ×3 (09:29→22:04)
[2024-02-07] MEDS: LANTUS 0.2 UNITS SC (09:29)
[2024-02-07] MEDS: PROZAC 20 MG PO (09:30)
[2024-02-07] MEDS: LASIX 40 MG PO (09:30)
[2024-02-07] MEDS: VITAMIN D3 (cholecalciferol) 25 MCG PO (09:30)
[2024-02-07] MEDS: PROTONIX 40 MG PO (09:30)
[2024-02-07] MEDS: NORVASC 5 MG PO (09:30)
[2024-02-07] MEDS: ZETIA 10 MG PO (09:31)
[2024-02-07] MEDS: MIRALAX 17 GRAMS PO (09:31)
[2024-02-07 11:07] LABS: % Basophils 0.7 % (0-2); % Eosinophils 4.4 % (0-6); % Immature Granulocytes 1.5 % (0-0.5); % Lymphocytes 26.3 % (20.5-51.1); % Monocytes 6.6 % (1.7-9.3); % Neutrophils 60.5 % (42.2-75.2); Absolute Basophils 0.1 10^3/uL (0-0.2); Absolute Eosinophils 0.3 10^3/uL (0-0.7); Absolute Immature Granulocytes 0.1 10^3/uL (0-0.05); Absolute Monocytes 0.5 10^3/uL (0.1-0.6); Absolute Neutrophils 4.5 10^3/uL (1.4-6.5); Hematocrit 33.2 % (37.0-47.0); Mean Corp Hgb Conc. 33.1 g/dL (33.0-37.0); Mean Corpuscular Hgb 34.7 pg (27.0-31.0); Mean Corpuscular Volume 104.7 fL (81.0-99.0); Mean Platelet Volume 11.3 fL (7.4-10.4); Nucleated Red Blood Cells % 0 %; Platelet Count 180 10^3/uL (130-400); Red Blood Cell Count 3.17 10^6/uL (4.20-5.40); Red Cell Dist. Width 14.8 % (11.5-14.5); White Blood Cell Count 7.5 10^3/uL (4.8-10.8)
--- NOTE | 2024-02-07 11:11 | W.PN.HOSP.TC ---
Today's Communication/Plan
-
Tolerating PO intake
Hopefully can wean off tube feeds
Assessment / Plan
Assessment / Plan
Physical Exam
Physical Exam was not performed, as patient was not present in her room at the time of attempted patient encounter.
Assessment/Plan
Patient is a 63 y/o female with past medical history significant for schizophrenia, DM-II and COPD who presented to ED complaining of cough and SOB.
Impression:
Acute hypoxic/hypercarbic respiratory failure
� Intubated 01/25/2024
-Extubated 02/04/2024
Nosocomial pneumonia with bilateral infiltrates.
Aspiration risk
Acute on chronic CHF preserved EF suspected.
AMBERLY, resolved
Steroid-induced hyperglycemia
Conditions prior to admission:
Schizophrenia
Bipolar disorder baseline borderline personality.
Type 2 diabetes.
Essential hypertension baseline morbid obesity with BMI of 36
Chronic CHF preserved EF
COPD/asthma
Obstructive sleep apnea on CPAP
GERD
Anemia of chronic disease/iron deficiency
Plan:
VDRF with prolonged intubation.
Hypercarbic and hypoxic respiratory failure with contribution of aspiration pneumonia.
Extubated on 02/03.
Doing well
Continue CPAP
Aspiration precautions
Okay to do IDDSI Level 6 (soft/bite-sized) and thin liquids as per speech therapist conversation on 02/07/24
Per clinical night stocker, okay to stop tube feeds if patient's PO intake continues to be 50% or more
Multifocal pneumonia, suspect aspiration versus nosocomial
CT chest 01/27 negative for PE. Bilateral lower lobe consolidations left greater than right representing combination of atelectasis and pneumonia.
Follow-up imaging with improved infiltrates
Procalcitonin normalized
Completed 7-day course of doxycycline.
Monitor closely for temperature curve and white count
Remains high aspiration risk.
Speech and clinical night stocker evaluation appreciated -- recommendations are above
DHT tube feeding (clogged HD replaced on 02/04?)
Chronic CHF preserved EF
Suspected volume overload
On oral Lasix
Consider additional diuresis to facilitate weaning.
Acute kidney injury secondary dehydration
Hyponatremia
Resolved with volume expansion
Type 2 diabetes mellitus
Obesity with BMI of 36.
Hemoglobin A1c 6.8.
Currently off Farxiga and Metformin.
Steroid-induced hyperglycemia requiring initiation of IV insulin drip critical care protocol.
Transitioned off insulin drip to subcutaneous regimen with addition of basal bolus protocol with serial Accu-Cheks
Appreciate Diabetes NITROGLYCERIN SUPERVISOR: continue current Lantus 20 units in AM with NovoLog 8 units Q 6 hours and low corrective insulin
Change to AC/HS basal bolus insulin once TF stopped
Hypothyroidism
Continue levothyroxine
Full code.
Diet: Upgraded to IDDSI 6/thin liquids on 02/07/24 as per Speech evaluation and recommendations. Continue Aspiration precautions. Wean off tube feeds if patient PO intake is 50% or more.
DVT prophylaxis Lovenox
02/03. Dr. Sumner had goals of care discussion with patient CRISTIN Tavarez. Given underlying medical psychiatric conditions patient has a high risk for recurrent event of respiratory failure and prolonged intubation. Plan is for psychiatric
evaluation for competency to facilitate decision-making on goals of care.
Psychiatry consult for competency assessment placed -- however psychiatry unable to meaningfully fully do a capacity assessment due to patient's inability to meaningfully participate.
Anticipated Discharge: > 48 hours
Subjective/Interval History
-
Date of Service: February 07, 2024
Patient was not present in her room at the time of attempted patient encounter. Chart reviewed, case discussed with patient's nurse.
Objective Data
-
Labs:
Laboratory Results
02/07/24
10:09
WBC 7.5
Hgb 11.0 L
Hct 33.2 L
Plt Count 180 D
Sodium Pending
Potassium Pending
Chloride Pending
Carbon Dioxide Pending
BUN Pending
Creatinine Pending
Glucose Pending
Calcium Pending
Total Bilirubin Pending
AST Pending
ALT Pending
Alkaline Phosphatase Pending
Vital Signs:
Vital Signs
Temp Pulse Resp BP Pulse Ox
97.2 F 82 14 164/84 92
02/07/24 07:00 02/07/24 07:15 02/07/24 07:15 02/07/24 07:00 02/07/24 07:00
I&O
02/06/24 02/07/24 02/08/24
06:59 06:59 06:59
Intake Total 2099 / 2099 1000 / 1000
Output Total 1974 / 1974 1700 / 1700
Balance 125 / 125 -700 / -700
[2024-02-07 11:29] LABS: ALT (SGPT) 44 U/L (0-35); AST (SGOT) 25 U/L (14-36); Albumin 3.4 g/dl (3.5-5.0); Alkaline Phosphatase 111 U/L (38-126); Blood Urea Nitrogen 31 mg/dl (7-17); Calcium 9.2 mg/dl (8.4-10.2); Carbon Dioxide 35 mmol/L (22-30); Chloride 96 mmol/L (98-107); Estimated Creatinine Clearance 102 ml/min; Glucose 245 mg/dl (70-99); Magnesium 1.9 mg/dl (1.6-2.3); Phosphorus 3.9 mg/dl (2.5-4.5); Sodium 140 mmol/L (135-145); Total Bilirubin 0.6 mg/dl (0.2-1.3); Total Protein 6.2 g/dl (6.3-8.2); eGFR > 60.00
[2024-02-07 11:58] LABS: Glucose - Point of Care 194 mg/dl (70-99)
--- NOTE | 2024-02-07 12:01 | CM ---
Addendum entered by Zhao Higginbotham 02/07/24 15:47:
Spoke w/ Olena/Anila. Per Olena, facility can accept pt but have not gotten the auth back yet. Foresee auth approving Saturday if no determination today.
Hospitalist updated via TT
Original Note:
Chart reviewed. Patient lives at [facility] ([phone]). Pending LTACH admission to [facility].
Spoke w/ Olena/Anila ([phone]) re pt referral. Updated clinicals requested for facility to work on auth
Clinicals sent via [facility] to be updated regarding admission and auth
Per hospitalist note, oral feeding started yesterday, hopefully can wean off tubed feeds
Psych eval yesterday. Monitor mood and behavior.
Speech swallow study completed today
Plan: LTACH pending eligibility and auth
--- NOTE | 2024-02-07 15:22 | W.PN.UPDATE ---
Update Note
Progress Note Update
Psychiatry follow up. Patient denies complaints at this time. She is eating now and able to take medications PO.
VPA 02/05 27.9
MSE- obese, good eye contact. impoverished speech/thought. mood is 'ok'. denies SI/HI/AVH. Limited I/J
A/P- 64 yo female with schizoaffective disorder and borderline personality, improving. continue olanzapine 10mg HS, Prozac 20mg daily, klonopin 1mg HS and depakote 500mg TID. Monitor mood/behavior.
[2024-02-07 17:25] LABS: Glucose - Point of Care 217 mg/dl (70-99)
[2024-02-07] MEDS: NOVOLOG FLEXPEN-MODERATE RESISTANCE 3 UNITS SC (17:32)
[2024-02-07] MEDS: LOVENOX 40 MG SC (17:38)
[2024-02-07 21:27] LABS: Glucose - Point of Care 142 mg/dl (70-99)
[2024-02-07] MEDS: KLONOPIN 1 MG PO (22:05)
[2024-02-07] MEDS: ZYPREXA 10 MG PO (22:05)
[2024-02-08] VITALS (7 sets, daily range): BP systolic 130–159; BP diastolic 58–125; PULSE 3
[2024-02-08] MEDS: SYNTHROID 75 MCG PO (05:40)
[2024-02-08 07:27] LABS: Glucose - Point of Care 199 mg/dl (70-99)
[2024-02-08] MEDS: FLOVENT 110 MCG INHALER 2 PUFF INH ×2 (08:21→19:33)
[2024-02-08] MEDS: LANTUS 0.2 UNITS SC (08:22)
[2024-02-08] MEDS: NOVOLOG FLEXPEN 8 UNITS SC ×3 (08:22→17:48)
[2024-02-08] MEDS: DEPAKENE 500 MG PO ×3 (08:23→20:01)
[2024-02-08] MEDS: ZETIA 10 MG PO (08:23)
[2024-02-08] MEDS: PROTONIX 40 MG PO (08:23)
[2024-02-08] MEDS: NOVOLOG FLEXPEN-MODERATE RESISTANCE 1 UNITS SC (08:23)
[2024-02-08] MEDS: VITAMIN D3 (cholecalciferol) 25 MCG PO (08:23)
[2024-02-08] MEDS: LASIX 40 MG PO (08:24)
[2024-02-08] MEDS: NORVASC 5 MG PO (08:25)
[2024-02-08] MEDS: PROZAC 20 MG PO (08:25)
[2024-02-08] MEDS: MIRALAX 17 GRAMS PO ×2 (08:25→14:04)
[2024-02-08 09:01] LABS: % Basophils 0.7 % (0-2); % Eosinophils 5.1 % (0-6); % Immature Granulocytes 0.8 % (0-0.5); % Lymphocytes 28.9 % (20.5-51.1); % Monocytes 7.1 % (1.7-9.3); % Neutrophils 57.4 % (42.2-75.2); Absolute Basophils 0.1 10^3/uL (0-0.2); Absolute Eosinophils 0.4 10^3/uL (0-0.7); Absolute Immature Granulocytes 0.1 10^3/uL (0-0.05); Absolute Monocytes 0.5 10^3/uL (0.1-0.6); Absolute Neutrophils 4.1 10^3/uL (1.4-6.5); Hematocrit 33.9 % (37.0-47.0); Mean Corp Hgb Conc. 32.4 g/dL (33.0-37.0); Mean Corpuscular Hgb 34.5 pg (27.0-31.0); Mean Corpuscular Volume 106.3 fL (81.0-99.0); Nucleated Red Blood Cells % 0 %; Red Blood Cell Count 3.19 10^6/uL (4.20-5.40); Red Cell Dist. Width 14.9 % (11.5-14.5); White Blood Cell Count 7.1 10^3/uL (4.8-10.8)
--- NOTE | 2024-02-08 09:02 | W.PN.HOSP.TC ---
Today's Communication/Plan
-
Continue diet and TF's; hopefully can wean off tube feeds soon
Still requiring more than baseline level of oxygen -- will benefit from pulm follow-up
Discharge probably early next week
Assessment / Plan
Assessment / Plan
Physical Exam
General: Well Developed and No Apparent Distress
HEENT: Normocephalic
Respiratory: Clear to Auscultation Bilaterally except for some scattered rhonchi
Cardiac: Regular Rhythm and S1/S2
GI: Soft, Nontender, Nondistended and Normal Bowel Sounds
Musculoskeletal: No Cyanosis and No Edema
Skin: Warm. Dry.
Neuro: Awake, Alert (Following simple commands while on the vent) and Nonfocal/Grossly Intact
Assessment/Plan
Patient is a 63 y/o female with past medical history significant for schizophrenia, DM-II and COPD who presented to ED complaining of cough and SOB.
Impression:
Acute hypoxic/hypercarbic respiratory failure
� Intubated 01/25/2024
-Extubated 02/04/2024
Nosocomial pneumonia with bilateral infiltrates.
Aspiration risk
Acute on chronic CHF preserved EF suspected.
AMBERLY, resolved
Steroid-induced hyperglycemia
Conditions prior to admission:
Schizophrenia
Bipolar disorder baseline borderline personality.
Type 2 diabetes.
Essential hypertension baseline morbid obesity with BMI of 36
Chronic CHF preserved EF
COPD/asthma
Obstructive sleep apnea on CPAP
GERD
Anemia of chronic disease/iron deficiency
Plan:
VDRF with prolonged intubation.
Hypercarbic and hypoxic respiratory failure with contribution of aspiration pneumonia.
Extubated on 02/03.
Doing well
Continue CPAP
Aspiration precautions
Okay to do IDDSI Level 6 (soft/bite-sized) and thin liquids as per speech therapist conversation on 02/07/24
Per clinical hydro plant site manager, okay to stop tube feeds if patient's PO intake continues to be 50% or more
Multifocal pneumonia, suspect aspiration versus nosocomial
CT chest 01/27 negative for PE. Bilateral lower lobe consolidations left greater than right representing combination of atelectasis and pneumonia.
Follow-up imaging with improved infiltrates
Procalcitonin normalized
Completed 7-day course of doxycycline.
Monitor closely for temperature curve and white count
Remains high aspiration risk.
Speech and clinical hydro plant site manager evaluation appreciated -- recommendations are above
DHT tube feeding (clogged HD replaced on 02/04?)
REVIEW HOME MEDS
Chronic CHF preserved EF
Suspected volume overload
On oral Lasix
Consider additional diuresis to facilitate weaning.
Acute kidney injury secondary dehydration
Hyponatremia
Resolved with volume expansion
Type 2 diabetes mellitus
Obesity with BMI of 36.
Hemoglobin A1c 6.8.
Currently off Farxiga and Metformin.
Steroid-induced hyperglycemia requiring initiation of IV insulin drip critical care protocol.
Transitioned off insulin drip to subcutaneous regimen with addition of basal bolus protocol with serial Accu-Cheks
Appreciate Diabetes ARTIFICIAL FLY TIER: continue current Lantus 20 units in AM with NovoLog 8 units Q 6 hours and low corrective insulin
Change to AC/HS basal bolus insulin once TF stopped
Hypothyroidism
Continue levothyroxine
Full code.
Diet: Upgraded to IDDSI 6/thin liquids on 02/07/24 as per Speech evaluation and recommendations. Continue Aspiration precautions. Wean off tube feeds if patient PO intake is 50% or more.
DVT prophylaxis Lovenox
02/03. Dr. Sumner had goals of care discussion with patient CRISTIN Tavarez. Given underlying medical psychiatric conditions patient has a high risk for recurrent event of respiratory failure and prolonged intubation. Plan is for psychiatric
evaluation for competency to facilitate decision-making on goals of care.
Psychiatry consult for competency assessment placed -- however psychiatry unable to meaningfully fully do a capacity assessment due to patient's inability to meaningfully participate.
Anticipated Discharge: > 48 hours
Subjective/Interval History
-
Date of Service: February 08, 2024
Patient was seen and examined. She denied any new symptoms or complaints.
Objective Data
-
Labs:
Laboratory Results
02/08/24
08:38
WBC 7.1
Hgb 11.0 L
Hct 33.9 L
Plt Count Pending
Sodium Pending
Potassium Pending
Chloride Pending
Carbon Dioxide Pending
BUN Pending
Creatinine Pending
Glucose Pending
Calcium Pending
Total Bilirubin Pending
AST Pending
ALT Pending
Alkaline Phosphatase Pending
Vital Signs:
Vital Signs
Temp Pulse Resp BP Pulse Ox
98.2 F 78 16 159/76 95
02/08/24 03:00 02/08/24 08:26 02/08/24 08:26 02/08/24 08:24 02/08/24 08:26
I&O
02/07/24 02/08/24 02/09/24
06:59 06:59 06:59
Intake Total 1000 / 1000 480 / 480 240 / 240
Output Total 1700 / 1700 1300 / 1300 550 / 550
Balance -700 / -700 -820 / -820 -310 / -310
--- NOTE | 2024-02-08 11:24 | W.PN.UPDATE ---
Update Note
Progress Note Update
patient seen chart reviewed. this patient is very well known to me. she has hx of schizoaffective disorder. she is here for hypoxia which required intubation secondary to pneumonia. she required intubation. she reports she is feeling somewhat
better. she says her mood is not bad at this point. she did seem to be as alert and calm as i have seen her. in the time that i have known her we had made some changes in her meds. prozac dose at 20 mg is usual for her. the zyprexa dose had been
at one point 15 mg but at current 10 mg mood seems stable.s he has some hx of very high depakote levels. i had decreased the dose in the past to 1000 mg bid. now at 500 mg tid . level is low but would leave it given that her mood does not seem
unstable. will follow
[2024-02-08 11:44] LABS: ALT (SGPT) 39 U/L (0-35); AST (SGOT) 26 U/L (14-36); Albumin 3.6 g/dl (3.5-5.0); Alkaline Phosphatase 113 U/L (38-126); Blood Urea Nitrogen 35 mg/dl (7-17); Calcium 9.6 mg/dl (8.4-10.2); Carbon Dioxide 33 mmol/L (22-30); Chloride 97 mmol/L (98-107); Estimated Creatinine Clearance 88 ml/min; Glucose 213 mg/dl (70-99); Magnesium 1.9 mg/dl (1.6-2.3); Potassium 4.9 mmol/L (3.5-5.1); Sodium 142 mmol/L (135-145); Total Bilirubin 0.5 mg/dl (0.2-1.3); Total Protein 6.7 g/dl (6.3-8.2); eGFR > 60.00
[2024-02-08 11:52] LABS: Glucose - Point of Care 204 mg/dl (70-99)
[2024-02-08] MEDS: NOVOLOG FLEXPEN-MODERATE RESISTANCE 3 UNITS SC ×2 (12:21→17:48)
[2024-02-08 16:51] LABS: Glucose - Point of Care 210 mg/dl (70-99)
[2024-02-08] MEDS: LOVENOX 40 MG SC (17:49)
--- NOTE | 2024-02-08 19:15 | PTCARENOTE ---
At shift change patient was yelling out, cursing, and becoming agitated. Patient pulled out dobhoff tube, tube feed stopped, and patient pulled bilateral midline catheters. This RN asked patient what was wrong patient stated ' I don't give a damn, I
wanted this tube feed done, no doctor came to see me, I want the psych doctor to see me.' Patient pulled off tele monitor, threw it across the room and refused it being put back on. Patient refused to wear oxygen. Patient threw dinner tray and
personal belongings from bedside table onto the floor. Anshul STOVALL notified. Patient was eventually able to be redirected and given ordered medications early. Tele d/c. Patient compliant with oxygen. Patient remains without IV access. Will
continue with current plan.
[2024-02-08] MEDS: ZYPREXA 10 MG PO (19:59)
[2024-02-08] MEDS: KLONOPIN 1 MG PO (19:59)
--- NOTE | 2024-02-08 22:53 | VATNOTE ---
NOTIFIED BY PCN THAT PT HAD REMOVED BOTH MIDLINES AT 1845. PT HAS NO CURRENT NEED FOR AN IV ACCESS AT THIS TIME. VAT TO MONITOR.
[2024-02-09 06:00] VITALS: BMI 35.3
[2024-02-09] MEDS: SYNTHROID 75 MCG PO (06:25)
[2024-02-09 07:16] VITALS: BMI 35.1
[2024-02-09 07:48] VITALS: BP 132/55
[2024-02-09] MEDS: FLOVENT 110 MCG INHALER 2 PUFF INH ×2 (08:13→19:43)
[2024-02-09 08:20] LABS: Glucose - Point of Care 173 mg/dl (70-99)
[2024-02-09] MEDS: LASIX 40 MG PO (09:06)
[2024-02-09] MEDS: ZETIA 10 MG PO (09:06)
[2024-02-09] MEDS: PROTONIX 40 MG PO (09:06)
[2024-02-09] MEDS: NORVASC 5 MG PO (09:06)
[2024-02-09] MEDS: VITAMIN D3 (cholecalciferol) 25 MCG PO (09:06)
[2024-02-09] MEDS: FARXIGA 10 MG PO (09:06)
[2024-02-09] MEDS: DEPAKENE 500 MG PO ×2 (09:06→20:20)
[2024-02-09] MEDS: PROZAC 20 MG PO (09:07)
[2024-02-09] MEDS: MIRALAX 17 GRAMS PO (09:07)
[2024-02-09] MEDS: NOVOLOG FLEXPEN 8 UNITS SC ×2 (09:07→11:20)
[2024-02-09] MEDS: NOVOLOG FLEXPEN-MODERATE RESISTANCE 1 UNITS SC (09:08)
[2024-02-09] MEDS: LANTUS 0.2 UNITS SC (09:11)
[2024-02-09 11:15] LABS: Glucose - Point of Care 231 mg/dl (70-99)
[2024-02-09] MEDS: NOVOLOG FLEXPEN-MODERATE RESISTANCE 3 UNITS SC (11:21)
--- NOTE | 2024-02-09 11:28 | W.PN.UPDATE ---
Update Note
Progress Note Update
patient seen chart reviewed. discussed with nursing. ms medina had a difficult evening . she became upset over something (she did explain this to me but she can be very difficult to understand at times and this was one of those times) and
acknowledges she was out of control. we talked about the need to not hurt herself or others when something upsets her which she seemed to understand . unfortunately this was not a one off occurrence and has been the reasons for several 302
petitions in the past. she has been on higher doses of her psych meds in the past. since depakote level is low will increase to 1000 mg bid. would try to avoid increase in zyprexa or prns of zyprexa which can contribute to even more weight gain
. depakote is a little better although still can contribute to weight gain.will check level dec 5. will also leave a prn of klonopin which she is already taking at hs.
--- NOTE | 2024-02-09 14:15 | W.PN.HOSP.TC ---
Today's Communication/Plan
-
Still on higher than home baseline oxygen -- will request pulmonary to re-evaluate
Insulin increased slightly to better control blood glucose
Mold Builder working on LTach placement
Assessment / Plan
Assessment / Plan
Physical Exam
General: Well Developed and No Apparent Distress
HEENT: Normocephalic
Respiratory: Clear to Auscultation Bilaterally except for some scattered rhonchi
Cardiac: Regular Rhythm and S1/S2
GI: Soft, Nontender, Nondistended and Normal Bowel Sounds
Musculoskeletal: No Cyanosis and No Edema
Skin: Warm. Dry.
Neuro: Awake, Alert (Following simple commands while on the vent) and Nonfocal/Grossly Intact
Assessment/Plan
Patient is a 63 y/o female with past medical history significant for schizophrenia, DM-II and COPD who presented to ED complaining of cough and SOB.
Impression:
Acute hypoxic/hypercarbic respiratory failure
� Intubated 01/25/2024
-Extubated 02/04/2024
Nosocomial pneumonia with bilateral infiltrates.
Aspiration risk
Acute on chronic CHF preserved EF suspected.
AMBERLY, resolved
Steroid-induced hyperglycemia
Conditions prior to admission:
Schizophrenia
Bipolar disorder baseline borderline personality.
Type 2 diabetes.
Essential hypertension baseline morbid obesity with BMI of 36
Chronic CHF preserved EF
COPD/asthma
Obstructive sleep apnea on CPAP
GERD
Anemia of chronic disease/iron deficiency
Plan:
VDRF with prolonged intubation.
Hypercarbic and hypoxic respiratory failure with contribution of aspiration pneumonia.
Extubated on 02/03.
Doing well
Continue CPAP
Aspiration precautions
Okay to do IDDSI Level 6 (soft/bite-sized) and thin liquids as per speech therapist conversation on 02/07/24
Patient pulled out her Dobhoff Tube, and now patient is eating and drinking more than 50% of her food and taking all of her PO medications okay
Multifocal pneumonia, suspect aspiration versus nosocomial
CT chest 01/27 negative for PE. Bilateral lower lobe consolidations left greater than right representing combination of atelectasis and pneumonia.
Follow-up imaging with improved infiltrates
Procalcitonin normalized
Completed 7-day course of doxycycline.
Monitor closely for temperature curve and white count
Remains high aspiration risk.
Speech and clinical export freight clerk evaluation appreciated -- recommendations are above
DHT tube feeding (clogged HD replaced on 02/04?) -- DHT now discontinued as above
Chronic CHF preserved EF
Suspected volume overload
On oral Lasix
Consider additional diuresis to facilitate weaning.
Acute kidney injury secondary dehydration
Hyponatremia
Resolved with volume expansion
Type 2 diabetes mellitus
Obesity with BMI of 36.
Hemoglobin A1c 6.8.
Currently off Farxiga and Metformin.
Steroid-induced hyperglycemia requiring initiation of IV insulin drip critical care protocol.
Transitioned off insulin drip to subcutaneous regimen with addition of basal bolus protocol with serial Accu-Cheks
Appreciate Diabetes BLEACH MIXER
Increased Lantus from 20 units to 22 units in the AM
Increased NovoLog from 8 units AC to 9 units AC
Continue moderate corrective insulin
Agitation
-Appreciate psychiatry adjusting patient's psychotropic medications
Hypothyroidism
Continue levothyroxine
Full code.
Diet: Upgraded to IDDSI 6/thin liquids on 02/07/24 as per Speech evaluation and recommendations. Continue Aspiration precautions. Wean off tube feeds if patient PO intake is 50% or more.
DVT prophylaxis Lovenox
02/03. Dr. Sumner had goals of care discussion with patient CRISTIN Tavarez. Given underlying medical psychiatric conditions patient has a high risk for recurrent event of respiratory failure and prolonged intubation. Plan is for psychiatric
evaluation for competency to facilitate decision-making on goals of care.
Psychiatry consult for competency assessment placed -- however psychiatry unable to meaningfully fully do a capacity assessment due to patient's inability to meaningfully participate.
Anticipated Discharge: 24 - 48 hours
Subjective/Interval History
-
Date of Service: February 09, 2024
Patient was seen and examined. Last night, she was agitated, this morning was okay, denied any complaints.
Objective Data
-
Labs:
Laboratory Results
02/09/24
13:54
WBC Pending
Hgb Pending
Hct Pending
Plt Count Pending
Sodium Pending
Potassium Pending
Chloride Pending
Carbon Dioxide Pending
BUN Pending
Creatinine Pending
Glucose Pending
Calcium Pending
Total Bilirubin Pending
AST Pending
ALT Pending
Alkaline Phosphatase Pending
Vital Signs:
Vital Signs
Temp Pulse Resp BP Pulse Ox
98.1 F 76 16 132/55 95
02/09/24 07:48 02/09/24 09:06 02/09/24 08:17 02/09/24 09:06 02/09/24 10:10
I&O
02/08/24 02/09/24 02/10/24
06:59 06:59 06:59
Intake Total 480 / 480 720 / 720 240 / 240
Output Total 1300 / 1300 1350 / 1350 650 / 650
Balance -820 / -820 -630 / -630 -410 / -410
[2024-02-09 14:26] LABS: ALT (SGPT) 43 U/L (0-35); AST (SGOT) 33 U/L (14-36); Alkaline Phosphatase 108 U/L (38-126); Blood Urea Nitrogen 32 mg/dl (7-17); Carbon Dioxide 39 mmol/L (22-30); Chloride 94 mmol/L (98-107); Estimated Creatinine Clearance 86 ml/min; Glucose 149 mg/dl (70-99); Potassium 4.7 mmol/L (3.5-5.1); Sodium 141 mmol/L (135-145); Total Bilirubin 0.7 mg/dl (0.2-1.3); Total Protein 7.2 g/dl (6.3-8.2); eGFR > 60.00
[2024-02-09 14:28] LABS: % Basophils 0.8 % (0-2); % Eosinophils 3.5 % (0-6); % Immature Granulocytes 0.5 % (0-0.5); % Lymphocytes 25.2 % (20.5-51.1); % Monocytes 6.1 % (1.7-9.3); % Neutrophils 63.9 % (42.2-75.2); Absolute Basophils 0.1 10^3/uL (0-0.2); Absolute Eosinophils 0.3 10^3/uL (0-0.7); Absolute Lymphocytes 1.9 10^3/uL (1.2-3.4); Absolute Monocytes 0.5 10^3/uL (0.1-0.6); Absolute Neutrophils 4.7 10^3/uL (1.4-6.5); Hematocrit 40.1 % (37.0-47.0); Hemoglobin 12.6 g/dL (12.0-16.0); Mean Corp Hgb Conc. 31.4 g/dL (33.0-37.0); Mean Corpuscular Hgb 33.9 pg (27.0-31.0); Mean Corpuscular Volume 107.8 fL (81.0-99.0); Mean Platelet Volume 9.3 fL (7.4-10.4); Nucleated Red Blood Cells % 0 %; Platelet Count 259 10^3/uL (130-400); Red Blood Cell Count 3.72 10^6/uL (4.20-5.40); Red Cell Dist. Width 14.9 % (11.5-14.5); White Blood Cell Count 7.4 10^3/uL (4.8-10.8)
[2024-02-09 15:46] LABS: Glucose - Point of Care 149 mg/dl (70-99)
[2024-02-09 15:50] VITALS: BP 144/76
[2024-02-09] MEDS: NOVOLOG FLEXPEN-MODERATE RESISTANCE SC (15:57)
[2024-02-09] MEDS: NOVOLOG FLEXPEN 9 UNITS SC (17:06)
[2024-02-09] MEDS: LOVENOX 40 MG SC (17:07)
[2024-02-09] MEDS: ZYPREXA 10 MG PO (20:21)
[2024-02-09] MEDS: KLONOPIN 1 MG PO (20:21)
[2024-02-09] MEDS: DEPAKOTE (12 HR RELEASE) 1000 MG PO (20:40)
[2024-02-09 20:41] VITALS: BP 172/100
[2024-02-09 21:16] LABS: Glucose - Point of Care 168 mg/dl (70-99)
[2024-02-09 21:30] VITALS: PULSE 3
[2024-02-09 23:19] VITALS: BP 124/65
[2024-02-10 03:48] VITALS: PULSE 3
[2024-02-10] MEDS: SYNTHROID 75 MCG PO (05:19)
[2024-02-10 05:59] VITALS: BMI 34.6
--- NOTE | 2024-02-10 07:33 | W.PN.HOSP.TC ---
Today's Communication/Plan
-
Discharge today
Assessment / Plan
Assessment / Plan
Physical Exam
General: Well Developed and No Apparent Distress
HEENT: Normocephalic
Respiratory: Clear to Auscultation Bilaterally except for some scattered rhonchi
Cardiac: Regular Rhythm and S1/S2
GI: Soft, Nontender, Nondistended and Normal Bowel Sounds
Musculoskeletal: No Cyanosis and No Edema
Skin: Warm. Dry.
Neuro: Awake, Alert (Following simple commands while on the vent) and Nonfocal/Grossly Intact
Assessment/Plan
Patient is a 63 y/o female with past medical history significant for schizophrenia, DM-II and COPD who presented to ED complaining of cough and SOB.
Impression:
Acute hypoxic/hypercarbic respiratory failure
� Intubated 01/25/2024
-Extubated 02/04/2024
Metabolic alkalosis due to chronic hypercapnia with CO2
Nosocomial LLL pneumonia
Shock - due to sedation in setting of sepsis - shock state now resolved
Aspiration risk
Acute on chronic CHF preserved EF suspected.
AMBERLY, resolved
Steroid-induced hyperglycemia
Conditions prior to admission:
Schizophrenia
Bipolar disorder baseline borderline personality.
Borderline personality disorder.
Type 2 diabetes mellitus.
Essential hypertension baseline morbid obesity with BMI of 36
Chronic CHF preserved EF
Mild Aortic Stenosis
Hypertension
Hypothyroidism
COPD/asthma
Obstructive sleep apnea on CPAP
GERD
Anemia of chronic disease/iron deficiency
Obesity.
Anemia.
Chronic heart failure, preserved EF.
Appendectomy. Cholecystectomy
Plan:
VDRF with prolonged intubation.
Hypercarbic and hypoxic respiratory failure with contribution of aspiration pneumonia.
Extubated on 02/03.
Doing well
Continue with NIV-15/5 cm, set rate 10, with 5 L oxygen.
Aspiration precautions
Okay to do IDDSI Level 6 (soft/bite-sized) and thin liquids as per speech therapist conversation on 02/07/24
Patient pulled out her Dobhoff Tube, and now patient is eating and drinking more than 50% of her food and taking all of her PO medications okay -- no more need for Dobhoff Tube at this time, assuming patient's PO intake stays okay
Multifocal pneumonia, suspect aspiration versus nosocomial
CT chest 01/27 negative for PE. Bilateral lower lobe consolidations left greater than right representing combination of atelectasis and pneumonia.
Follow-up imaging with improved infiltrates
Procalcitonin normalized
Completed 7-day course of doxycycline.
Monitor closely for temperature curve and white count
Remains high aspiration risk.
Speech and clinical content producer evaluation appreciated -- recommendations are above
DHT tube feeding (clogged HD replaced on 02/04?) -- DHT now discontinued as above
Chronic CHF preserved EF
Suspected volume overload
On oral Lasix
Consider additional diuresis to facilitate weaning.
Acute kidney injury secondary dehydration
Hyponatremia
Resolved with volume expansion
Type 2 diabetes mellitus
Obesity with BMI of 36.
Hemoglobin A1c 6.8.
Continue Farxiga and Metformin.
Steroid-induced hyperglycemia requiring initiation of IV insulin drip critical care protocol.
Transitioned off insulin drip to subcutaneous regimen with addition of basal bolus protocol with serial Accu-Cheks
Appreciate Diabetes VP STRATEGY
Increased Lantus from 20 units to 22 units in the AM
Increased NovoLog from 8 units AC to 9 units AC
Continue moderate corrective insulin
Agitation
-Appreciate psychiatry adjusting patient's psychotropic medications
Hypothyroidism
Continue levothyroxine
Full code.
Diet: Upgraded to IDDSI 6/thin liquids on 02/07/24 as per Speech evaluation and recommendations. Continue Aspiration precautions. Wean off tube feeds if patient PO intake is 50% or more.
DVT prophylaxis Lovenox
02/03. Dr. Sumner had goals of care discussion with patient POChayo Tavarez. Given underlying medical psychiatric conditions patient has a high risk for recurrent event of respiratory failure and prolonged intubation. Plan is for psychiatric
evaluation for competency to facilitate decision-making on goals of care.
Psychiatry consult for competency assessment placed -- however psychiatry unable to meaningfully fully do a capacity assessment due to patient's inability to meaningfully participate.
More than 30 minutes spent in discharge including
Final examination of the patient
Summarizing hospital stay
Instructions for continuing care to all relevant caregivers
Preparation of discharge records, prescriptions, and referral forms
Total time spent (in minutes): 45
Anticipated Discharge: Today
Subjective/Interval History
-
Date of Service: February 10, 2024
Patient was seen and examined. She denied any new symptoms or complaints, she denied chest pain, shortness of breath or any other complaints.
Objective Data
-
Vital Signs:
Vital Signs
Temp Pulse Resp BP Pulse Ox
97.7 F 81 18 124/65 96
02/09/24 23:19 02/09/24 23:19 02/09/24 23:19 02/09/24 23:19 02/09/24 23:19
I&O
02/09/24 02/10/24 02/11/24
06:59 06:59 06:59
Intake Total 720 / 720 1200 / 1200
Output Total 1350 / 1350 2900 / 2900
Balance -630 / -630 -1700 / -1700
[2024-02-10 07:40] VITALS: BP 140/60
[2024-02-10] MEDS: FLOVENT 110 MCG INHALER 2 PUFF INH (07:48)
[2024-02-10 07:52] LABS: Glucose - Point of Care 146 mg/dl (70-99)
[2024-02-10] MEDS: NOVOLOG FLEXPEN-MODERATE RESISTANCE SC (08:16)
[2024-02-10] MEDS: NOVOLOG FLEXPEN 9 UNITS SC ×3 (08:17→16:00)
[2024-02-10] MEDS: LANTUS 0.22 UNITS SC (08:18)
[2024-02-10] MEDS: PROTONIX 40 MG PO (08:18)
[2024-02-10] MEDS: VITAMIN D3 (cholecalciferol) 25 MCG PO (08:18)
[2024-02-10] MEDS: MIRALAX 17 GRAMS PO (08:18)
[2024-02-10] MEDS: FARXIGA 10 MG PO (08:18)
[2024-02-10] MEDS: NORVASC 5 MG PO (08:19)
[2024-02-10] MEDS: ZETIA 10 MG PO (08:19)
[2024-02-10] MEDS: LASIX 40 MG PO (08:19)
[2024-02-10] MEDS: PROZAC 20 MG PO (08:19)
[2024-02-10] MEDS: DEPAKENE 500 MG PO (08:19)
--- NOTE | 2024-02-10 08:22 | PN.DE.MGMTRT ---
Insulin Management
- -
02/10/2024: Diabetes Management F/u:
63-year-old female who presented w/cough and SOB, due to pneumonia/COPD/mucous plugs on 01/24/24. She had worsening respiratory distress and was transferred to the ICU on the evening of 01/23 and intubated on 01/25/2024 due to Acute respiratory
failure with hypoxia and hypercapnia.
PMH: COPD, Asthma, Schizophrenia and T2DM. Chart review indicates she was taking Metformin 1000mg BID, Farxiga 10mg daily, Lantus 15 units @ HS and Apidra 12 units AC. A1C 6.8%, Cr 1.3, eGFR 46.21
Patient extubated 02/03, awake, alert, but unable to discuss diabetes management as she keeps veering away into discussions about discharge today.
Patient pulled out her Dobbhoff Tube, Tube feeds off 02/06. Was started on a diet IDDSI Level 6 (soft/bite-sized) and thin liquids .
Insulin doses were increased by Dr. Zarco over the weekend.
2 premeal glucose 149 to 231, HS glucose 168, FBG 146 this AM.
Will resume Metformin 1000mg BID and cont current regimen; Lantus 22 units @ HS and NovoLog 9 units Q 6 hours with low corrective
Will closely follow and make needed adjustments
Diabetes History
- -
Type of Diabetes: 2 requiring insulin
Pre-Admission Diabetes Regimen
02/09/24
13:54
Creatinine 0.7
Lab Results
Hemoglobin A1c 6.8 % (4.0-5.6) H 01/25/24 06:17
Insulin Pump Settings
IP Diabetes Regimen
02/09/24 02/09/24 02/09/24
11:14 13:54 15:44
Glucose 149 H
POC Glucose 231 H 149 H
02/09/24 02/10/24
21:14 07:51
Glucose
POC Glucose 168 H 146 H
Meal type: Lunch
Meal type: Breakfast
Amount consumed: 80%
Amount consumed: 80%
Patient Education
[2024-02-10] MEDS: GLUCOPHAGE 1000 MG PO ×2 (08:39→15:57)
--- NOTE | 2024-02-10 09:59 | W.PN.INTV ---
Today's Communication / Plan
Recommendations
Wean oxygen.
Incentive spirometry.
Aspiration precautions.
Check VBG
Assessment
-
63-year-old female with a history of underlying schizophrenia, diabetes, asthma, presented with cough and shortness of breath noted mucous plugs and pneumonia-pulmonary consulted for pneumonia/COPD/mucous plugs 01/24/24. She had worsening
respiratory distress and was transferred to the ICU on the evening of 01/23 and intubated on 01/25/2024.
Impression:
Acute respiratory failure with hypoxia + hypercapnia now on mechanical ventilation
(intubated 01/25/2024)
Extubated 02/03/24
Metabolic alkalosis due to chronic hypercapnia with CO2 now being acutely blown off s/p intubation
Left lower lobe pneumonia-nosocomial
Shock - due to sedation in setting of sepsis - shock state now resolved
Aspiration risk.
CHF-preserved EF with normal RV size and function
Mild aortic stenosis
Asthma with acute exacerbation due to pneumonia
Leukocytosis - now resolved
Anemia - stable
DM type II c/b hyperglycemia
AMBERLY (baseline Cr 0.8) - worsening
History of mild restrictive lung disease (post�bronchodilator FVC: 69% / 2.04 L via spirometry on 12/12/2020)
Conditions present prior to admission:
Bipolar.
Schizophrenia.
Borderline personality disorder
Diabetes.
Hypertension.
Hypothyroid.
Obesity.
COPD/asthma overlap.
CIELO on CPAP
Anemia.
GERD.
Chronic heart failure, preserved EF.
Appendectomy. Cholecystectomy
Plan
Respiratory status is not quite back to her baseline but much improved from ICU-on ventilator for over a week.
Component of hypoxemia from chronic obstructive lung disease/basilar atelectasis/restrictive lung disease
Continue with NIV-15/5 cm, set rate 10, with 5 L oxygen.
Wean supplemental oxygen-assess discharge. Supplemental oxygen needs.
Patient's pulse ox was always considerably lower than, PaO2 on ABG or VBG
Check VBG on 5 L
Nebulizers as needed.
Aspiration precautions.
Speech therapy following
Consider chest x-ray
Diuresis as tolerated..
Monitor weight, lower extremity edema, renal function, and intake/output.
Weight now down to 88.7 kg-was 94 kg
Cultures reviewed.
Radiographs reviewed.
Finished a finite course of antibiotics.
Continue to observe off antibiotics.
Infectious disease was following
Monitor hemoglobin.
Transfuse if needed.
Monitor blood sugar.
Insulin supplementation as needed.
DVT prophylaxis-on Lovenox
Family Discussions
She has a [employer] director, Mirian Tavarez. Contacted for patient's advance directives as she is now Day 10 on the vent without significant progress in extubation.
Studies:
Chest x-ray 01/28/2024-left basilar opacification without change
Chest x-ray 01/29/2024-no significant changes with multifocal pneumonia and atelectasis
CT chest 01/21/24-multiple pulmonary nodules stable dating back to 02/06/23-over 10 nodules, less than [address] 01/28/2024-no central pulmonary emboli, bilateral lower lobe consolidations left greater than right likely representing atelectasis and pneumonia
Chest x-ray 01/24/24-large dense lower lobe and lingular airspace disease consistent with pneumonia
CXR 01/25/2024: Endotracheal tube tip projects in mid thoracic trachea. Nasoenteric tube courses below the diaphragm, tip is excluded by collimation.
Unchanged left mid/lower lung opacity which may represent pneumonia.
ABG 01/30/24-30 3/84/7.52-decrease minute ventilation-rate decreased to 12
VBG 01/31/24-40 6/124/7.4
VBG 02/01/24-38/180/7.48-pulse oximetry does not correlate and routinely underestimates PaO2
ABG 01/29/24-40 8/183/7.4-100% saturation on ABG and only 93% saturation on peripheral monitor
ECHO 01/24/24- Normal left ventricular size, wall thickness and systolic function. LV ejection fraction is 60-65% by visual estimation. Normal right ventricular size and function. Mild aortic stenosis. Estimated pulmonary artery pressure of 38
mmHg assuming a right atrial pressure of 3 mmHg. Compared to prior from February 12, 2022, mild aortic stenosis is seen.
Subjective Dataa
Subjective Data
Date of Service:
Date of Service: February 10, 2024
Chief Complaint: Monogram Machine Operator Follow Up and Pulmonary Follow Up
Subjective:
alert, tearful, agitated, wants to be discharged, no chest pain or abdominal pain, shortness of breath
Review of Systems
General: Other (per HPI)
Objective Data
Data Reviewed
Vital Signs / I&O / Oxygen:
Vital Signs
Temp Pulse Resp BP Pulse Ox
98.4 F 76 16 140/60 97
02/10/24 07:40 02/10/24 07:51 02/10/24 07:51 02/10/24 08:19 02/10/24 07:51
Intake and Output
02/09/24 02/10/24 02/11/24
06:59 06:59 06:59
Intake Total 720 / 720 1200 / 1200
Output Total 1350 / 1350 2900 / 2900
Balance -630 / -630 -1700 / -1700
SaO2 [A/C] 93
SaO2 97
Nasal Cannula flow liters per 5
minute
Physical Exam
General: Respiratory Distress (negative), Comfortable, Chills (negative) and Sweats (negative)
HEENT: Normocephalic, Anicteric, Moist Mucous Membranes and Other (edentulous)
Cardiovascular: Regular Rhythm and Peripheral Edema (Trace lower extremity edema bilaterally)
Respiratory: Clear, Wheeze (negative) and Non-Labored Respirations
GI: Soft, Distended (Abdominal obesity), Non Tender and Normal Bowel Sounds
Neurology: Awake, Alert, Oriented and No Motor Deficits
Skin: Warm, Good Color, Cyanosis (negative), Jaundice (negative) and Rash (n)
Labs/Micro/Reports
Lab Data
02/09/24 13:54
02/09/24 13:54
--- NOTE | 2024-02-10 11:27 | CM ---
Addendum entered by Zhao Higginbotham 02/10/24 16:11:
Per Olena/elena High approved for pt to admit today
Per hospitalist, pt can d/c today though not at [facility] for O2. Hospitalist spoke w/ Olen[facility] about [facility] and appropriate medical team will be present to follow pt. Per hospitalist, will d/c pt around 4:30/4:45.
Ambulance forms provided to insulation power unit tender to arrange transport.
[facility]
Report: [phone]
FAx: [phone]
Plan: D/c to [facility] via ambulance
Original Note:
Spoke freddy Hyatt/[facility]. Per elena Hyatt is still processing and is requesting updated clinicals from the weekend.
Updated clinicals sent in [facility]
Will need ambulance transport at d/c
Plan: [facility] once auth is approved
[2024-02-10 11:40] LABS: Glucose - Point of Care 183 mg/dl (70-99)
[2024-02-10] MEDS: NOVOLOG FLEXPEN-MODERATE RESISTANCE 1 UNITS SC ×2 (11:48→15:59)
[2024-02-10 14:24] LABS: Venous Blood Gas B.E. 10.2 mmol/L (-4 to +4); Venous Blood Gas O2 Sat % 93.3 %; Venous Blood Gas pCO2 57 mmHg (35-48); Venous Blood Gas pH 7.42 (7.32-7.43); Venous Blood Gas pO2 70 mmHg (30-50)
[2024-02-10 14:25] LABS: Venous Blood Gas O2 Therapy 30
[2024-02-10 15:06] VITALS: BP 134/81
[2024-02-10 15:27] LABS: Glucose - Point of Care 182 mg/dl (70-99)
[2024-02-10 17:38] VITALS: BP 132/74
== END 2024-02-10 19:04 | DRG 870 ==
LOC: 4 WEST ACU 06:43
PROVIDERS: Internal Medicine; Internal Medicine Critical Care Medicine; Nurse Practitioner Family; Nurse Practitioner Gerontology; Nurse Practitioner Primary Care; Radiology Diagnostic Radiology; Registered Nurse; Student in an Organized Health Care Education/Training Program; ADMITTING PHYSICIAN Hospitalist; ATTENDING PHYSICIAN Hospitalist; CONSULT PHYSICIAN Internal Medicine Cardiovascular Disease; CONSULT PHYSICIAN Internal Medicine Critical Care Medicine; CONSULT PHYSICIAN Internal Medicine Infectious Disease; EMERGENCY PHYSICIAN Student in an Organized Health Care Education/Training Program; FAMILY PHYSICIAN Family Medicine; OTHER PHYSICIAN Psychiatry & Neurology Psychiatry
PROC: 5A0935A Assistance with Respiratory Ventilation, Less than 24 Consecutive Hours, High Flow/Velocity Cannula (ICD-10-PCS; 2024-01-24)
PROC: 5A1955Z Respiratory Ventilation, Greater than 96 Consecutive Hours (ICD-10-PCS; 2024-01-25)
PROC: 0BH17EZ Insertion of Endotracheal Airway into Trachea, Via Natural or Artificial Opening (ICD-10-PCS; 2024-01-25)
PROC: 0DH67UZ Insertion of Feeding Device into Stomach, Via Natural or Artificial Opening (ICD-10-PCS; 2024-01-31)
PROC: 0BP1XDZ Removal of Intraluminal Device from Trachea, External Approach (ICD-10-PCS; 2024-02-03)
PROC: 5A09357 Assistance with Respiratory Ventilation, Less than 24 Consecutive Hours, Continuous Positive Airway Pressure (ICD-10-PCS; 2024-02-04)
DX: A41.9 Sepsis, unspecified organism (principal); J96.21 Acute and chronic respiratory failure with hypoxia; I50.33 Acute on chronic diastolic (congestive) heart failure; J18.9 Pneumonia, unspecified organism; R65.21 Severe sepsis with septic shock; J96.02 Acute respiratory failure with hypercapnia; J44.0 Chronic obstructive pulmonary disease with (acute) lower respiratory infection; J98.11 Atelectasis; N17.9 Acute kidney failure, unspecified; E87.0 Hyperosmolality and hypernatremia; G47.30 Sleep apnea, unspecified; I11.0 Hypertensive heart disease with heart failure; E03.9 Hypothyroidism, unspecified; E11.65 Type 2 diabetes mellitus with hyperglycemia; E78.00 Pure hypercholesterolemia, unspecified; F25.9 Schizoaffective disorder, unspecified; F60.3 Borderline personality disorder; R91.8 Other nonspecific abnormal finding of lung field; E88.819 Insulin resistance, unspecified; F79 Unspecified intellectual disabilities; Y95 Nosocomial condition; D50.9 Iron deficiency anemia, unspecified; E86.0 Dehydration; E66.01 Morbid (severe) obesity due to excess calories; G47.33 Obstructive sleep apnea (adult) (pediatric); D63.8 Anemia in other chronic diseases classified elsewhere; R45.1 Restlessness and agitation; K21.9 Gastro-esophageal reflux disease without esophagitis; R45.6 Violent behavior; F31.9 Bipolar disorder, unspecified; E11.649 Type 2 diabetes mellitus with hypoglycemia without coma; Z91.51 Personal history of suicidal behavior; Z90.49 Acquired absence of other specified parts of digestive tract; Z11.52 Encounter for screening for COVID-19; Z91.030 Bee allergy status; Z91.041 Radiographic dye allergy status; Z91.012 Allergy to eggs; Z88.5 Allergy status to narcotic agent; Z88.0 Allergy status to penicillin; Z91.013 Allergy to seafood; Z88.2 Allergy status to sulfonamides; Z88.7 Allergy status to serum and vaccine; Z88.8 Allergy status to other drugs, medicaments and biological substances; Z91.018 Allergy to other foods; Z79.84 Long term (current) use of oral hypoglycemic drugs; Z79.890 Hormone replacement therapy; Z79.4 Long term (current) use of insulin; Z79.51 Long term (current) use of inhaled steroids; Z99.81 Dependence on supplemental oxygen; Z68.36 Body mass index [BMI] 36.0-36.9, adult
CPT/HCPCS: 36600; 71045; 71275; 74018; 74230; 80048; 80053; 80164; 80202; 81003; 82330; 82607; 82728; 82746; 82805; 82962; 83036; 83540; 83550; 83605; 83735; 83880; 84100; 84132; 84145; 84302; 84478; 84484; 85014; 85018; 85025; 85027; 85610; 85730; 86850; 86900; 86901; 87040; 87070; 87205; 87449; 87502; 87811; 87899; 92526; 92610; 92611; 93005; 93306; 94002; 94003; 94640; 94660; 94668; 96374; 96375; 97163; 97167; 97530; 99285; J2020; J2358; J2916; Q9967

== ENCOUNTER → 2024-07-28 10:55 | Outpatient (REF) | payer OTHER, SELFPAY | LOC: REG 10:55 | PROVIDERS: ATTENDING PHYSICIAN Family Medicine | DX: M79.631 Pain in right forearm (principal) | CPT/HCPCS: 73090 ==

== ENCOUNTER 2024-09-25 20:13 | Inpatient (IN) | payer OTHER, SELFPAY ==
[2024-09-25] VITALS (11 sets, daily range): BP systolic 139–167; BP diastolic 70–110; PULSE 90; BMI 37.5; BMI 36.5
--- NOTE | 2024-09-25 13:19 | ED.GENMED ---
History of Present Illness
General
Chief Complaint: Abdominal Pain
Time Seen by Provider: 09/25/24 13:19
History of Present Illness
History of Present Illness:
TIME OF INITIAL EVALUATION
- The patient has history of developmental delay
REVIEW OF OLD RECORDS
- I reviewed records, the patient has a history of schizophrenia, type 2 diabetes, COPD/asthma, heart failure and was admitted in January for a few weeks due to hypoxia. She was also found to have aortic stenosis as well. Her EF at that time was
65%. She was in the intensive care unit as she required intubation and was placed on IV steroids and Diamox. There was no PE at that time.
Note:
CHIEF COMPLAINT(S)
Abdominal pain for five days.
HISTORY OF PRESENT ILLNESS
The patient is a 64-year-old female residing [facility], presenting with generalized abdominal pain for five days. She describes the pain severity as 10 out of 10. On examination, the abdomen is slightly distended and tender. The
patient has experienced loose stools, characterized as looser than her normal stool but not quite diarrhea, with approximately four to five bowel movements, as per staff observations. The patient denies having bowel movements over the past five days
despite reports of six bowel movements after receiving an enema. She also reported one episode of vomiting, describing it as yellow. The patient denies current difficulty in breathing. A rectal examination was performed, revealing minimal stool
present.
I reviewed the notes from her facility which indicates the patient had 6 bowel movements yesterday however the patient denies this. The patient does seem to be somewhat of an unreliable historian.
ADDITIONAL HISTORY OBTAINED FROM SOURCES OTHER THAN THE PATIENT
According to the [facility] at the [facility], the patient is chronically on oxygen therapy at two liters per minute. The nurse reported that the patients bowel movements were loose, yet not classified as diarrhea.
EXTERNAL RECORDS REVIEWED
The patients records indicate she was intubated and on mechanical ventilation during the winter.
CHRONIC MEDICAL CONDITIONS SIGNIFICANTLY AFFECTING CARE
The patient is reportedly on chronic oxygen therapy.
PHYSICAL EXAM
- General: Alert, in mild to moderate distress. Appears chronically ill
- Skin: Warm, dry.
- Head: Normocephalic, atraumatic.
- Neck: Supple, trachea midline.
- Eye, Ears, Nose, Mouth, and Throat: Oral mucosa moist. Wears nasal cannula chronically
- Cardiovascular: Normal peripheral perfusion, No edema.
- Respiratory: Respirations are non-labored.
- Gastrointestinal: Abdomen slightly distended, very mild diffuse tenderness, empty rectal vault
- Back: Normal range of motion, Normal alignment.
- Musculoskeletal: Normal ROM, normal strength.
- Neurological: Appears to be somewhat of an unreliable historian
- Psychiatric: Cooperative, appropriate mood & affect.
PLAN
Plans to administer nausea medication and intravenous fluids. A computed tomography (CT) scan of the abdomen is considered to evaluate the cause of abdominal pain.
DIFFERENTIAL DIAGNOSIS
The Differential Diagnosis includes, in no particular order and is not limited to:
1. Bowel obstruction
2. Gastroenteritis
3. Colitis
4. Constipation
5. Diverticulitis
6. Irritable bowel syndrome (IBS)
7. Peptic ulcer disease
8. Gallbladder disease
9. Pancreatitis
10. Ischemic bowel disease
RADIOLOGY
- I personally reviewed CT imaging and agree that there is inflammatory changes around the gallbladder
EKG
- Sinus 92, nonspecific ST and another, QTc 472 ms
LABS
- White count 10.5, hemoglobin normal, sodium 140, bicarb is 38 (patient has history of COPD), lipase normal,
UPDATE
-SUMMARY OF ENCOUNTER
The patient, a 64-year-old female residing [facility] a [facility], presented with severe generalized abdominal pain rated at 10 out of 10. On examination, the abdomen was slightly distended and tender. A CT scan revealed signs of inflammation and
possible infection around the gallbladder, along with constipation. Based on these findings, the patient was started on intravenous antibiotics and given additional pain relief.
ASSESSMENT
The patient appears to have an inflammatory process around the gallbladder, possibly cholecystitis, and signs of constipation contributing to her abdominal pain.
PLAN
The patient will be admitted to the hospital for closer monitoring and further management, including intravenous antibiotics to address the gallbladder infection and medications for pain control.
INDEPENDENT REVIEW OF LABS AND INTERPRETATION OF TESTS
My independent interpretation of the CT scan indicates signs of inflammation and possible infection around the gallbladder, as well as signs of constipation.
MEDICAL DECISION MAKING
-Complexity of Data Reviewed: Chronic conditions affecting care include chronic oxygen therapy. Differential Diagnosis includes bowel obstruction, gastroenteritis, colitis, constipation, diverticulitis, irritable bowel syndrome (IBS), peptic ulcer
disease, gallbladder disease, pancreatitis, and ischemic bowel disease.
-Data:
Category 1
Clinical information was obtained from an independent historian, with additional history obtained from the [facility] nursing staff.
Category 2
My independent interpretation of the CT scan revealed inflammation and possible infection of the gallbladder and signs of constipation.
-Risk:
Care significantly affected by Social Determinants of Health, as noted by the patients residency in a [facility].
DIAGNOSIS
Acute cholecystitis (K81.0) and constipation (K59.00).
Patient pain persist while in the emergency department. White count is top normal. Will give additional morphine and started on antibiotics. She has a penicillin allergy but reportedly was able to tolerate cephalosporins in the past. We will
give a dose of Rocephin.
Past History
Past History
ED Past Medical History: Asthma, COPD, HTN, Hypercholesterolemia, IDDM, Hypothyroidism, Psychiatric (Schizoaffective disorder, borderline personality disorder, major depressive disorder, suicide attempt) and Other (SBO,)
ED Past Surgical History: Appendectomy and Cholecystectomy
Social History
Tobacco: Non-smoker
Alcohol: None
Drug: None
Personal: Single
Living: other ([facility])
Employment: Not employed
Family History
Family History: Unable to obtain
Phy Exam
Physical Exam
Physical Exam:
See HPI
Course
Orders/Labs/Results
Orders:
Orders
09/25/24 13:24
EKG [Electrocardiogram (*1)] Urgent
Reason for Study: Abdominal Pain
EKG- Treatment ONCE
09/25/24 13:26
CT Abd/pel Without Iv Or Oral Urgent
Comment:
Reason For Exam: abd pain; iodine allergy cannot ann po
0.9% Sodium Chloride 1000 ml [Nss] 1,000 ml IV BOLUS
Ondansetron Injectable [Zofran] 4 mg IV NOW STA
09/25/24 13:27
Basic Metabolic Panel Urgent
Complete Blood Count/With Diff Urgent
Lipase Urgent
09/25/24 14:20
Morphine Sulfate 2 mg IV NOW STA
Morphine Sulfate 2 mg IV NOW STA
09/25/24 17:46
Add On- LAB Urgent
Tests Added?: LFTs
09/25/24 17:56
Vfvbz-Mpbi-Uchdfeh Urgent
Comment: MUST BE COLLECTED. SPECIMEN IN LAB IS HEMOLYZED
09/25/24 18:08
CefTRIAXone [Rocephin] 1,000 mg IV NOW STA
09/25/24 18:10
Morphine Sulfate 2 mg IV NOW STA
09/25/24 18:12
LFT [Ahubp-Sibr-Gtsqoox] Urgent
Abnormal Lab Results
09/25/24
13:27
RBC 3.99 L 10^6/uL
(4.20-5.40)
MCV 104.0 H fL
(81.0-99.0)
MCH 35.8 H pg
(27.0-31.0)
RDW 14.6 H %
(11.5-14.5)
Abs Immat Gran (auto) 0.2 H 10^3/uL
(0-0.05)
Absolute Neuts (auto) 7.3 H 10^3/uL
(1.4-6.5)
Absolute Monos (auto) 1.1 H 10^3/uL
(0.1-0.6)
Immature Gran % 1.4 H %
(0-0.5)
Lymphocytes % 15.7 L %
(20.5-51.1)
Monocytes % 10.3 H %
(1.7-9.3)
Chloride 97 L mmol/L
(98-107)
Carbon Dioxide 38 H mmol/L
(22-30)
BUN 26 H mg/dl
(7-17)
Glucose 152 H mg/dl
(70-99)
09/25/24 13:27
09/25/24 13:27
Vital Signs
Initial and Last Documented VS:
Initial Vital Signs
Pulse
95
09/25/24 13:26
Last Documented Vital Signs
Temp Pulse Resp BP Pulse Ox
36.7 C 85 20 167/84 94
09/25/24 13:47 09/25/24 17:23 09/25/24 17:23 09/25/24 17:23 09/25/24 17:23
*Pulse Oximetry
Patient hypoxic: yes
*Critical Care Note
Total Time (30-74mins, 75-104mins- exclusive of procedures): Not Applicable
ED Attending Note
-
Portions of this chart may have been created with voice recognition software.� Occasional wrong word or��sound alike� substitutions may have occurred due to the inherent limitations of voice recognition software.
Discharge Plan
Departure
Patient Disposition: Admit
Date of Disposition: 09/25/24
Time of Disposition: 18:10
Presentation/result/management discussed w/ accepting MD/DO: Hospitalist
Patient with high blood pressure during this ER visit?: Yes
Discharge Problem:
Acute cholecystitis
Prescriptions:
No Action
metformin 1,000 MG tablet
1,000 mg PO BID
allopurinol 300 MG tablet
300 mg PO DAILY
cholecalciferol (vitamin D3) 1,000 UNITS tablet
1,000 units PO DAILY
ondansetron HCl 4 MG tablet
4 mg PO Q8HPRN PRN (Reason: nausea)
acetaminophen 325 MG tablet
650 mg PO Q6HPRN PRN (Reason: back pain)
olanzapine [Zyprexa] 10 mg Tablet
15 mg PO HS
Apidra SoloStar U-100 Insulin 100 unit/mL Insulin Pen
8 unit SC DAILY
fluoxetine [Prozac] 10 mg Capsule
20 mg PO DAILY
furosemide 40 MG tablet
40 mg PO DAILY
loperamide 2 mg Tablet
2 mg PO Q6HPRN PRN (Reason: diarrhea)
valacyclovir 500 mg Tablet
1,000 mg PO BID
benzonatate 100 mg Capsule
100 mg PO TIDPRN PRN (Reason: COUGH)
ezetimibe [Zetia] 10 mg Tablet
10 mg PO DAILY
insulin glargine [Lantus Solostar U-100 Insulin] 100 unit/mL (3 mL) Insulin Pen
21 unit SC DAILY
Baqsimi 3 mg/actuation [place],Non-Aerosol
3 mg INTRANASAL DAILYPRN PRN (Reason: severe hypoglycemia )
polyethylene glycol 3350 [Miralax] 17 gram powder in packet
17 g PO BIDPRN PRN (Reason: constipation)
docusate sodium 100 mg Capsule
100 mg PO BID
guaifenesin [Mucinex] 600 mg Tablet Extended Release 12hr
600 mg PO BID
magnesium hydroxide [Milk of Magnesia] 400 mg/5 mL Suspension
2,400 mg PO BIDPRN PRN (Reason: constipation)
albuterol sulfate 2.5 mg /3 mL (0.083 %) Solution For Nebulization
2.5 mg INHALATION R Q6HPRN PRN (Reason: sob)
lorazepam 2 mg Tablet
2 mg PO Q8HPRN PRN (Reason: anxeity)
benzoyl peroxide 5 % Cleanser
1 applic TOPICAL DAILY
clonazepam 1 mg tablet
1.5 mg PO HS
olanzapine 5 mg Tablet
5 mg PO [id number] PRN (Reason: Agitation)
amlodipine 5 mg Tablet
5 mg PO DAILY
pantoprazole 40 mg Tablet,Delayed Release (Dr/Ec)
40 mg PO DAILY
theophylline 300 mg Capsule,Extended Release 24hr
300 mg PO DAILY
ibuprofen [Advil] 200 mg Tablet
600 mg PO Q8HPRN PRN (Reason: severe pain)
atorvastatin [Lipitor] 20 mg Tablet
20 mg PO HS
dextromethorphan-guaifenesin [Guaiasorb DM] 10-100 mg/5 mL Liquid
10 ml PO Q6HPRN PRN (Reason: cough)
Theragen Tablet
1 tab PO DAILY
levothyroxine [Synthroid] 100 mcg Tablet
100 mcg PO DAILY
divalproex 500 mg Tablet Extended Release 24 Hr
1,000 mg PO HS
gabapentin 100 mg Capsule
100 mg PO TIDPRN PRN (Reason: mild pain)
alum-mag hydroxide-simeth [Iris-Lanta] 200-200-20 mg/5 mL Suspension
15 ml PO BIDPRN PRN (Reason: indigestion)
melatonin 5 mg Tablet
5 mg PO HS
Apidra SoloStar U-100 Insulin 100 unit/mL Insulin Pen
9 sliding scale dose SC BID
Dulera 100-5 mcg/actuation Hfa Aerosol Inhaler
1 puff INHALATION R BID
dapagliflozin propanediol [Farxiga] 10 mg Tablet
10 mg PO DAILY
furosemide [Lasix] 20 mg tablet
40 mg PO DAILYPRN PRN (Reason: fluid)
Referrals:
Shimon Cleary DO [Family Provider, Family Practice]
Interventions
Interventions:
*Risk Screen - Suicide Last Done: 09/25/24 13:47
*General Assessment Last Done: 09/25/24 13:47
*Neglect/Abuse Screening Last Done: 09/25/24 13:47
*ED- Fall Risk Assessment Last Done: 09/25/24 13:47
*ED COVID-19 Vaccine History Last Done: 09/25/24 13:47
RD-Jpcdjf-Tnwtqxkvmi Assessment Last Done: 09/25/24 13:47
Discharge Date and Time
Print Language: UZBEK
[2024-09-25 13:42] LABS: Hematocrit 41.5 % (37.0-47.0); Hemoglobin 14.3 g/dL (12.0-16.0); Mean Corp Hgb Conc. 34.5 g/dL (33.0-37.0); Mean Corpuscular Volume 104.0 fL (81.0-99.0); Nucleated Red Blood Cells % 0 %; Platelet Count 236 10^3/uL (130-400); Red Cell Dist. Width 14.6 % (11.5-14.5)
[2024-09-25 14:08] LABS: Blood Urea Nitrogen 26 mg/dl (7-17); Calcium 10.1 mg/dl (8.4-10.2); Carbon Dioxide 38 mmol/L (22-30); Chloride 97 mmol/L (98-107); Estimated Creatinine Clearance 72 ml/min; Glucose 152 mg/dl (70-99); Lipase 123 U/L (23-300); Sodium 140 mmol/L (135-145); eGFR > 60.00
[2024-09-25] MEDS: ZOFRAN 4 MG IV ×2 (14:17→21:45)
[2024-09-25] MEDS: NSS 1000 IV ×2 (14:18→21:45)
[2024-09-25] MEDS: MORPHINE SULFATE 2 MG IV ×2 (14:22→18:12)
[2024-09-25] MEDS: ROCEPHIN 1000 MG IV (18:11)
--- NOTE | 2024-09-25 18:34 | HPS.HSE ---
Family Physician
-
Family Physician: Shimon Cleary
Chief Complaint
-
ABD pain x 5 days no bowel movement x 5 days
History of Present Illness
64-year-old female from [facility] who states for the past 5 days she has had generalized abdominal discomfort with nausea, decreased appetite and no bowel movement x 5 days. She reports they gave her an enema last night she reports
going to the bathroom frequently but she was voiding not having any bowel movements. Her abdomen is distended and diffusely tender she is nontoxic-appearing, afebrile. She denies fever, chills, chest pain, palpitations, cough, shortness of breath,
sore throat, vomiting, diarrhea, urinary symptoms
Past medical history acute hypoxic hypercarbic [place] respiratory failure requiring intubation 01/24 extubation 02/04/2024, history of left lower lobe pneumonia, chronic CHF preserved EF, mild aortic stenosis schizophrenia, bipolar disorder
with borderline personality disorder, DM2/steroid-induced hyperglycemia, HTN�benign, hypothyroidism, COPD/asthma, CIELO on CPAP, GERD, anemia of chronic disease, iron deficiency, class III obesity,
Medical History
Past Medical History
Past Medical History: Reports Other
Additional Past Medical History:
acute hypoxic hypercarbic [place] respiratory failure requiring intubation 01/24 extubation 02/04/2024, history of left lower lobe pneumonia, chronic CHF preserved EF, mild aortic stenosis schizophrenia, bipolar disorder with borderline
personality disorder, DM2/steroid-induced hyperglycemia, HTN�benign, hypothyroidism, COPD/asthma, CIELO on CPAP, GERD, anemia of chronic disease, iron deficiency, class III obesity,
Past Surgical History: Reports Appendectomy and Other (Rectal repair as child)
Social History
Tobacco: Non-smoker
Alcohol: None
Personal: Single
Living: Other ([facility])
Employment: Disabled
Family History
Family History: Other (Mother in known type of cancer father kidney failure)
Allergies / Home Medications
Allergies reflects when Allergies were last updated in [employer].
Home Medications with original date entered in [employer]
Allergy/Medication List:
Allergies
Allergy/AdvReac Type Severity Reaction Status Date / Time
bee venom protein (honey bee) Allergy Unknown Verified 01/24/24 04:38
benzonatate (From Tessalon Allergy Rash Verified 01/24/24 04:38
Perles)
codeine Allergy Unknown Verified 01/24/24 04:38
egg Allergy Unknown Verified 01/24/24 04:38
fluphenazine (From Prolixin) Allergy Unknown Verified 01/24/24 04:38
haloperidol (From Haldol) Allergy Unknown Verified 01/24/24 04:38
hydroxychloroquine (From Allergy Unknown Verified 01/24/24 04:38
Plaquenil)
Influenza Virus Vaccines Allergy Unknown Verified 01/24/24 04:38
iodine Allergy Unknown Verified 01/24/24 04:38
Penicillins Allergy unknown; Verified 01/24/24 04:38
tolerated
cephalexin
June 2020
shellfish derived Allergy Unknown Verified 01/24/24 04:38
Sulfa (Sulfonamide Allergy Unknown Verified 01/24/24 04:38
Antibiotics)
tomato Allergy Unknown Verified 01/24/24 04:38
Home Medications
allopurinol 300 mg tablet 300 mg PO DAILY Gout 06/08/20
cholecalciferol (vitamin D3) 25 mcg (1,000 unit) tablet 1,000 units PO DAILY Supplement 06/08/20
metformin 1,000 mg tablet 1,000 mg PO BID Diabetes 06/08/20
ondansetron HCl 4 mg tablet 4 mg PO Q8HPRN PRN nausea 05/04/21
acetaminophen 325 mg tablet 650 mg PO Q6HPRN PRN back pain 05/28/21
insulin glulisine U-100 100 unit/mL subcutaneous pen (Apidra SoloStar U-100 Insulin) 8 unit SC DAILY Diabetes 09/13/21
olanzapine 10 mg tablet (Zyprexa) 15 mg PO HS mental health 09/13/21
fluoxetine 10 mg capsule (Prozac) 20 mg PO DAILY Depression 02/07/22
furosemide 40 mg tablet 40 mg PO DAILY Fluid retention/Swelling 02/08/22
benzonatate 100 mg capsule 100 mg PO TIDPRN PRN COUGH 04/12/23
ezetimibe 10 mg tablet (Zetia) 10 mg PO DAILY High Cholesterol 04/12/23
glucagon 3 mg/actuation nasal spray (Baqsimi) 3 mg intranasal DAILYPRN PRN severe hypoglycemia 04/12/23
insulin glargine 100 unit/mL (3 mL) subcutaneous pen (Lantus Solostar U-100 Insulin) 21 unit SC DAILY Diabetes 04/12/23
loperamide 2 mg tablet 2 mg PO Q6HPRN PRN diarrhea 04/12/23
polyethylene glycol 3350 17 gram oral powder packet (Miralax) 17 g PO BIDPRN PRN constipation 04/12/23
valacyclovir 500 mg tablet 1,000 mg PO BID 04/12/23
docusate sodium 100 mg capsule 100 mg PO BID Constipation 07/26/23
guaifenesin 600 mg tablet, extended release 12 hr (Mucinex) 600 mg PO BID Congestion 07/26/23
magnesium hydroxide 400 mg/5 mL oral suspension (Milk of Magnesia) 2,400 mg PO BIDPRN PRN constipation 07/26/23
albuterol sulfate 2.5 mg/3 mL (0.083 %) solution for nebulization 2.5 mg inhalation R Q6HPRN PRN sob 10/31/23
benzoyl peroxide 5 % topical cleanser 1 applic topical DAILY boil-prone areas 10/31/23
clonazepam 1 mg tablet 1.5 mg PO HS Mental Health/Anxiety 10/31/23
lorazepam 2 mg tablet 2 mg PO Q8HPRN PRN anxeity 10/31/23
amlodipine 5 mg tablet 5 mg PO DAILY Blood Pressure 01/24/24
ibuprofen 200 mg tablet (Advil) 600 mg PO Q8HPRN PRN severe pain 01/24/24
olanzapine 5 mg tablet 5 mg PO [id number] PRN Agitation 01/24/24
pantoprazole 40 mg tablet,delayed release 40 mg PO DAILY Gastrointestinal Issue 01/24/24
theophylline 300 mg capsule,extended release 24 hr 300 mg PO DAILY Lung/Breathing Issues 01/24/24
aluminum-mag hydroxide-simethicone 200 mg-200 mg-20 mg/5 mL oral susp (Iris-Lanta) 15 ml PO BIDPRN PRN indigestion 09/25/24
atorvastatin 20 mg tablet (Lipitor) 20 mg PO HS 09/25/24
dapagliflozin propanediol 10 mg tablet (Farxiga) 10 mg PO DAILY 09/25/24
dextromethorphan-guaifenesin 10 mg-100 mg/5 mL oral liquid (Guaiasorb DM) 10 ml PO Q6HPRN PRN cough 09/25/24
divalproex 500 mg tablet,extended release 24 hr 1,000 mg PO HS 09/25/24
furosemide 20 mg tablet (Lasix) 40 mg PO DAILYPRN PRN fluid 09/25/24
gabapentin 100 mg capsule 100 mg PO TIDPRN PRN mild pain 09/25/24
insulin glulisine U-100 100 unit/mL subcutaneous pen (Apidra SoloStar U-100 Insulin) 9 sliding scale dose SC BID 09/25/24
levothyroxine 100 mcg tablet (Synthroid) 100 mcg PO DAILY 09/25/24
melatonin 5 mg tablet 5 mg PO HS 09/25/24
mometasone-formoterol HFA 100 mcg-5 mcg/actuation aerosol inhaler (Dulera) 1 puff inhalation R BID 09/25/24
therapeutic multivitamin 1 tab PO DAILY 09/25/24
Review of Systems
-
History Source: Patient
A 12 point ROS was completed and negative except as noted: Yes
Constitutional: Denies Weight Gain or Chills
EENT: Denies Sore Throat or Runny Nose
Respiratory: Denies Cough or Trouble Breathing
Cardiac: Denies Chest Pain, Palpitations or Syncope
Abdomen/GI: Reports Abdominal Pain (Generalized), Nausea and Constipated (5 days); Denies Vomiting or Diarrhea
: Denies Dysuria, Frequency, Flank Pain, Incontinence, Difficulty Voiding or Urgency
Musculoskeletal: Denies Joint Pain or Edema
Skin: Denies Itching or Rash
Neurological: Denies Dizzy, Headache or Weakness
Endocrine: Reports No Symptoms
Hematologic/Lymphatic: Reports No Symptoms
Psych: Reports Calm
Physical Exam
Vital Signs
Vital Signs
Temp Pulse Resp BP Pulse Ox
98.1 F 85 20 167/84 94
09/25/24 13:47 09/25/24 17:23 09/25/24 17:23 09/25/24 17:23 09/25/24 17:23
Physical Exam
General: Morbidly Obese
HEENT: NormoCephalic, Anicteric, Moist mucous membranes, Thrush, PERRLA, [place] Conjunctivae and No Ptosis
Respiratory: Clear; No Wheezes, Rales, Rhonchi or Crackles
Cardiac: S1/S2 and Regular Rhythm; No Murmur, Rub, Gallop or Peripheral Edema
Breast: Deferred by me
GI: Normal Bowel Sounds, Tender (Generalized) and Distended
Rectal: Deferred by Provider
Genito-urinary: Deferred by me
Musculoskeletal: No Clubbing, No Cyanosis and No Edema
Skin: Warm and Dry; No Rash
Neuro: AO x 3, No Motor Deficits, Nonfocal/grossly intact, Cranial Nerves Intact and No Sensory Deficits; No Slurred Speech, Facial Droop or Tremors
Psych: Calm
Laboratory Results
-
09/25/24 13:27
09/25/24 13:27
Laboratory Results
Total Bilirubin Cancelled 09/25/24 13:27
AST Cancelled 09/25/24 13:27
ALT Cancelled 09/25/24 13:27
Alkaline Phosphatase Cancelled 09/25/24 13:27
Lipase 123 U/L (23-300) 09/25/24 13:27
Impression/Plan
-
Impression/plan:
Admit to MedSurg
#Acute cholecystitis/pericholecystic inflammation
#History of previous sigmoidectomy
-Consult general surgery
- IV Rocephin as patient is allergic to Zosyn
- IV morphine as needed pain
- IV NSS
- N.p.o.
EKG: NSR 92 bpm, QTc 472 MS no significant change from January [address]24
CT abdomen pelvis without IV or oral contrast:
1. ACUTE CHOLECYSTITIS with gallbladder distention, wall thickening, and pericholecystic inflammation.
2. SEVERE CONSTIPATION with severe distention of the ascending and transverse colon with a large amount of fecal material.
3. Moderate to severe chronic bilateral renal disease.
4. Previous sigmoidectomy and appendectomy.
5. Moderate pancreatic lipomatosis.
6. Severe discogenic degenerative disease at L2/L3 and L3/L4.
#Severe constipation ascending and transverse colon with large amount of fecal material
Patient did receive enema at correction did have bowel movement according to paperwork
- Will start mag citrate per surgery Dr. Erickson
#Oral thrush likely secondary to corticosteroid inhaler
-Nystatin swish and spit
-Recommended patient rinse mouth out after using inhaler
# Hx hypoxic hypercarbic respiratory failure requiring intubation for LLL PNA 01/24 extubation 02/04/2024
#COPD/asthma�no acute exacerbation
Continue albuterol as needed
- Continue theophylline 300 mg p.o. daily
#CIELO on CPAP
#Chronic CHF preserved EF
Mild aortic stenosis
I/O, daily weights
-Hold Lasix 40 mg daily and 40 mg daily as needed, continue Farxiga 10 mg daily
#Schizophrenia
#Bipolar disorder with borderline personality disorder
-Continue clonazepam 1.5 mg at bedtime, continue divalproex 1000 mg at bedtime , continue Prozac 20 mg daily
-Continue lorazepam 2 mg p.o. every 8 hours as needed anxiety
- Continue olanzapine 15 mg p.o. at bedtime and olanzapine 5 mg p.o. every 12 hours as needed agitation
DM2/steroid-induced hyperglycemia
Blood sugar 152
Accu-Cheks with SSI, check HgbA1c while NPO
- Hold metformin
-Patient is on Apidra 9units subcu twice daily�will hold while NPO
- Hold Lantus 21 units subcu daily while NPO
# HTN�benign
BP 167/84
-Continue amlodipine 5 mg daily with hold parameters
#HLD
Hold Zetia 10 mg daily, Lipitor 20 mg at bedtime
#Hypothyroidism
-Continue levothyroxine 100 mcg p.o. daily
#GERD
- IV Protonix 40 mg daily
#Anemia of chronic disease
#Iron deficiency
- Hgb 14.3 stable
#Chronic herpes virus
-Continue valacyclovir 1000 mg p.o. twice daily
#Class II obesity�BMI 37.4
Weight loss recommended as it affects all aspects of care
Other PMH:
History of moderate pancreatic lipomatosis on CT
Severe DDD L2-L3, L3-L4 on CT
DVT prophylaxis
Subcu Lovenox
Full code
[2024-09-25 18:41] LABS: ALT (SGPT) 21 U/L (0-35); AST (SGOT) 29 U/L (14-36); Albumin 4.3 g/dl (3.5-5.0); Alkaline Phosphatase 95 U/L (38-126); Total Protein 7.1 g/dl (6.3-8.2)
[2024-09-25] MEDS: CITROMA 300 ML PO (19:20)
--- NOTE | 2024-09-25 19:32 | W.PN.UPDATE ---
Update Note
Progress Note Update
This note serves as an addendum to the H&P by police detective MEDHAT Bere Torres
HPI
64F Obesity, Gp Home Res of Spicer Rudi, stable schizophrenia, HX chr HFpEF, COPD/Asthma, DM seen at ER:
- generalized abdominal pain for five days
- severity as 10 out of 10.
- the abdomen is slightly distended and tender.
- reports loose stools, looser than her normal stool but not quite diarrhea, with approximately four to five bowel
- reports of six bowel movements after receiving an enema.
- one episode of vomiting, describing it as yellow.
- denies current difficulty in breathing.
- ER LEIDY : rectal examination was performed, revealing minimal stool present.
PHX
Bipolar Disorder / Schizophrenia
DM-II
Hypertension
Hypothyroidism
Obesity
COPD / Asthma
Anemia of Chronic Disease
GERD
Chronic HFpEF
Relevant VS
PE
Gen: Not toxic
HEENT: ancteric, excesive salivation
Neck: supple
Lungs: CTA
Cor: RRR S1 S2
Abdomen: soft distended abdomen , tender
ALARM SIGNALER: AAO3
MS: no edema
Psych: cooporative
Relevant Data
CT Abd/pel Without Iv Or Oral
. ACUTE CHOLECYSTITIS with gallbladder distention, wall thickening, and pericholecystic inflammation.
2. SEVERE CONSTIPATION with severe distention of the ascending and transverse colon with a large amount of fecal material.
3. Moderate to severe chronic bilateral renal disease.
4. Previous sigmoidectomy and appendectomy.
5. Moderate pancreatic lipomatosis.
6. Severe discogenic degenerative disease at L2/L3 and L3/L4.
Last hospitalist admission: 01/24/24 - 02/10/24
ASSESSMENT & PLAN
Pending Rx reconciliation
CT suggest acute cholecystitis ( GBWT, PCF) but low clinical suspicion
- afebrile . Nl WCC
- Unremarkable LFTs: Nl TB , Nl AST and ALT
- NPO except Meds and IVF
- Empiric IV CFTX ( Tolerates to Keflex in 2020)due to PCN allegy
- GS consulted
Distended tender abdomen- DDX: Obstipation +/_ stercoral colitis
Severe constipation/ Obstipation
Almost empty rectal Vault per ER
- NPO
- Mag Citrate
- IVF
- Empiric Zosyn
- F/U with GS consult
T2DM on Insulin
- Hold metformin
- Hold Home basal bolus Insulin
- Low ISS
Chronic HFpEF: Not in acute HF
- Holding PO Lasix
- daily weights, etc.
HX COPD without Acute Exacerbation
- No active wheezing
- Continue inhaled corticosteroids, nebs, etc.
Aspiration Risk
- prior determination of swallow dysfunction and aspiration risk.
- She is admittedly reluctant to follow modified diets / recommendations.
- On most recent admission, she refuse Speech evaluation at all.
- Aspiration precautions.
Schizoaffective Disorder
- Stable. No current agitation / acute mood changes.
- Continue current psychotropic med regimen.
Benign HTN
- Stable. Continue home med regimen.
Hypothyroidism
- Stable.
- on LT4 supplementation.
Obesity due to excess calories and insulin resistance.
Class Obesity BMI 37
- Affects all aspects of care.
- Encourage healthy diet and increased activity with goal of weight loss.
DVT Prophylaxis: Lovenox
Full Code
IP MS
[2024-09-25] MEDS: SYMBICORT 80/4.5 MCG INHALER INH (21:57)
[2024-09-25] MEDS: DEPAKOTE ER (24 HR RELEASE) 1000 MG PO (22:04)
[2024-09-25] MEDS: VALTREX 1000 MG PO (22:04)
[2024-09-25] MEDS: KLONOPIN 1.5 MG PO (22:04)
[2024-09-25] MEDS: MELATONIN 5 MG PO (22:07)
[2024-09-25] MEDS: MYCOSTATIN ORAL SUSPENSION 5 ML PO (22:08)
[2024-09-25] MEDS: ZYPREXA 15 MG PO (22:09)
[2024-09-25] MEDS: MORPHINE SULFATE 4 MG IV (22:58)
--- NOTE | 2024-09-25 23:15 | PTCARENOTE ---
Receive pt from ER. Pt alert, oriented X3, complains about Abd pain (10/18). Pt pulled over to bed. Pt oriented to the room, call azevedo within reach and bed alarm placed as a precautionary measure. VP=774/84, HR=94, T=98.3, SpO2=93% ON 4L NC.
Morphine given for pain and IVFs infusing as per order. Will continue to monitor the pt.
[2024-09-25 23:52] LABS: Glucose - Point of Care 155 mg/dl (70-99)
[2024-09-26] MEDS: NOVOLOG FLEXPEN-LOW RESISTANCE 1 UNITS SC
[2024-09-26] MEDS: SYNTHROID 100 MCG PO (04:59)
[2024-09-26] MEDS: MORPHINE SULFATE 4 MG IV (04:59)
[2024-09-26 05:33] LABS: Glucose - Point of Care 145 mg/dl (70-99)
[2024-09-26] MEDS: NOVOLOG FLEXPEN-LOW RESISTANCE SC ×2 (05:37→14:15)
[2024-09-26 06:00] VITALS: BMI 36.8
[2024-09-26 07:00] VITALS: BP 137/45
[2024-09-26 07:19] LABS: Hematocrit 38.6 % (37.0-47.0); Hemoglobin 12.9 g/dL (12.0-16.0); Mean Corp Hgb Conc. 33.4 g/dL (33.0-37.0); Mean Corpuscular Volume 106.9 fL (81.0-99.0); Nucleated Red Blood Cells % 0 %; Platelet Count 217 10^3/uL (130-400); Red Cell Dist. Width 14.6 % (11.5-14.5)
[2024-09-26 07:21] LABS: ALT (SGPT) 37 U/L (0-35); AST (SGOT) 41 U/L (14-36); Albumin 3.9 g/dl (3.5-5.0); Alkaline Phosphatase 105 U/L (38-126); Blood Urea Nitrogen 27 mg/dl (7-17); Calcium 9.1 mg/dl (8.4-10.2); Carbon Dioxide 39 mmol/L (22-30); Chloride 97 mmol/L (98-107); Estimated Creatinine Clearance 64 ml/min; Glucose 133 mg/dl (70-99); Potassium 4.2 mmol/L (3.5-5.1); Sodium 142 mmol/L (135-145); Total Protein 6.7 g/dl (6.3-8.2); eGFR > 60.00
[2024-09-26] MEDS: SYMBICORT 80/4.5 MCG INHALER 2 PUFF INH ×2 (07:43→18:03)
[2024-09-26] MEDS: NORVASC 5 MG PO (08:43)
[2024-09-26] MEDS: PROTONIX IV 40 MG IV (08:43)
[2024-09-26] MEDS: FLAGYL 500 MG 100 IV ×3 (08:43→23:17)
[2024-09-26] MEDS: MYCOSTATIN ORAL SUSPENSION 5 ML PO ×4 (08:43→21:14)
[2024-09-26] MEDS: PROZAC 20 MG PO (08:43)
[2024-09-26] MEDS: FARXIGA 10 MG PO (08:43)
[2024-09-26] MEDS: NSS (PRESERVATIVE FREE) 10 ML IV (08:43)
[2024-09-26] MEDS: ZETIA 10 MG PO (08:44)
[2024-09-26] MEDS: THEO DUR 300 MG PO (08:44)
[2024-09-26] MEDS: THERAGRAN 1 TABLET PO (08:44)
[2024-09-26] MEDS: VALTREX 1000 MG PO ×2 (08:44→21:12)
[2024-09-26] MEDS: ZYLOPRIM 300 MG PO (08:44)
[2024-09-26] MEDS: FLUSH (NSS) 2 FLUSH IV (08:44)
[2024-09-26 08:51] LABS: Glycohemoglobin (HgbA1c) 7.2 % (4.0-5.6)
--- NOTE | 2024-09-26 09:36 | W.PN.HOSP.TC ---
Today's Communication/Plan
-
Assessment / Plan
Assessment / Plan
abdominal pain
-likely related to constipation rather then acute bobbi that is noted on ct as she does not have focal tenderness over the ruq or radiation of pain to the shoulder
-bowel reg, will give enema and suppository, may need golytley
-surgery to eval
-started on IV atb, will continue for now
-stop morphine as this will worsen constpation
-npo, if no plans for surgery can start cld and advance as tolerated
Hx hypoxic hypercarbic respiratory failure requiring intubation for LLL PNA 01/24 extubation 02/04/2024
COPD/asthma�no acute exacerbation
Continue albuterol as needed
- Continue theophylline 300 mg p.o. daily
CIELO on CPAP
Chronic CHF preserved EF
Mild aortic stenosis
I/O, daily weights
-Hold Lasix 40 mg daily and 40 mg daily as needed, continue Farxiga 10 mg daily
Schizophrenia
Bipolar disorder with borderline personality disorder
- Continue clonazepam 1.5 mg at bedtime, continue divalproex 1000 mg at bedtime , continue Prozac 20 mg daily
- Continue lorazepam 2 mg p.o. every 8 hours as needed anxiety
- Continue olanzapine 15 mg p.o. at bedtime and olanzapine 5 mg p.o. every 12 hours as needed agitation
DM2/steroid-induced hyperglycemia
- Currently, NPO, Will start Dextrose containing fluids
- Can continue lower dose home insulin
- Accucchks bg 140-180
- Hold metformin in off chance if she needs an inpatient contrast study
HTN
-Continue amlodipine 5 mg daily with hold parameters
HLD
-Continue Zetia 10 mg daily, Lipitor 20 mg at bedtime
Hypothyroidism
-Continue levothyroxine 100 mcg p.o. daily
GERD
-Protonix 40 mg daily
Chronic herpes virus
-Continue valacyclovir 1000 mg p.o. twice daily
Class II obesity�BMI 37.4
Dietary/lifestyle modification
Oral thrush likely secondary to corticosteroid inhaler
-Nystatin swish and spit
-Recommended patient rinse mouth out after using inhaler
Anticipated Discharge: 24 - 48 hours
Subjective/Interval History
-
Date of Service: September 26, 2024
seen and examien
still has diffused abd pain
has not had a bm since saturday
no nv
from retirement
Objective Data
-
Labs:
Laboratory Results
09/26/24
05:47
WBC 11.2 H
Hgb 12.9
Hct 38.6
Plt Count 217
Sodium 142
Potassium 4.2
Chloride 97 L
Carbon Dioxide 39 H
BUN 27 H
Creatinine 0.9
Glucose 133 H
Calcium 9.1
Total Bilirubin 0.6
AST 41 H
ALT 37 H
Alkaline Phosphatase 105
Vital Signs:
Vital Signs
Temp Pulse Resp BP Pulse Ox
98.7 F 86 16 137/45 94
09/25/24 23:58 09/26/24 08:43 09/26/24 07:45 09/26/24 08:43 09/26/24 07:45
I&O
09/25/24 09/26/24 09/27/24
06:59 06:59 06:59
Intake Total 600 / 600
Balance 600 / 600
Physical Exam
-
General: Well Developed, Well Nourished and Other (malodorous and appears soiled in urine)
HEENT: Normocephalic and Atraumatic
Respiratory: Clear to Auscultation
Cardiac: Regular Rhythm
GI: Soft, Nondistended and Tender (diffuse)
Musculoskeletal: No Clubbing and No Cyanosis
Neuro: Awake, Alert, Oriented and AO x 3
Psych: Calm
[2024-09-26] MEDS: TYLENOL 650 MG PO ×2 (10:32→15:59)
[2024-09-26] MEDS: MIRALAX 17 GRAMS PO ×2 (10:32→21:09)
[2024-09-26] MEDS: D5/0.45%NACL 1000 IV (10:32)
[2024-09-26] MEDS: NSS IV (10:36)
--- NOTE | 2024-09-26 11:36 | CON.GS ---
Addendum entered and electronically signed by West Erickson MD 09/26/24 12:03:
I saw and examined the patient.
The Cardiac Surgeon's note was reviewed and I agree with the note.
Comment: Does not participate much in encounter. Endorses generalized abd pain. Denies focal abd pain. Endorses nausea and had emesis last week but not in past few days. Last BM 5 days ago. Distended and obese on exam, mild diffuse ttp, no ttp to
RUQ. CT reviewed, heavy stool burden noted, gb distended but no clear stigmata of ACC. Mildly elevated AST/ALT noted, Tbili WNL. Mild leukocytosis noted. Consider IV abx. Rec GI consult for constipation. Will order RUQ US to better evaluate the
gallbladder, but low suspicion of ACC.
Original Note:
Consultation
-
Date/Time Consultation Performed: 09/26/24 1015
Medical History
-
Chief Complaint: constipation
History of Present Illness:
Ms Cartwright is a 64 yo female COPD, intubated January 2024 for hypoxic hypercarbic respiratory failure, CHF, CIELO with cpap, rectal prolapse repair and appendectomy who presents from her alf with reported history of no BM x5 days with
generalized abdominal pain and intermittent nausea. She reportedly had an enema [employer] with successful BM prior to EMS arrival but none since arrival. On exam, she has generalized abdominal tenderness with distention but no focal tenderness. She denies
fevers or chills.
Past Medical History
Past Medical History: CHF (hfpef), COPD (acute hypoxic hypercarbic respiratory failure with VDRF 2023), GERD, NIDDM, Psychiatric (schizophrenia, bipolar disorder with borderline personality disorder), Valvular Disease (mild ) and Other ( CIELO on
CPAP, anemia, obesity, HSV)
Past Surgical History: Appendectomy, Bowel Resection (rectal prolapse repair with sigmoid resection) and Other (right arm surgery self lacerations )
Social History
Tobacco: Non-Smoker
Alcohol: None
Living: Other (penitentiary [facility])
Employment: Disabled
Family History
Family History: Reviewed & Not Pertinent
Allergies / Home Medications
Allergy/AdvReac Type Severity Reaction Status Date / Time
bee venom protein (honey bee) Allergy Unknown Verified 01/24/24 04:38
benzonatate (From Tessalon Allergy Rash Verified 01/24/24 04:38
Perles)
codeine Allergy Unknown Verified 01/24/24 04:38
egg Allergy Unknown Verified 01/24/24 04:38
fluphenazine (From Prolixin) Allergy Unknown Verified 01/24/24 04:38
haloperidol (From Haldol) Allergy Unknown Verified 01/24/24 04:38
hydroxychloroquine (From Allergy Unknown Verified 01/24/24 04:38
Plaquenil)
Influenza Virus Vaccines Allergy flu vaccine Verified 09/25/24 20:45
iodine Allergy Unknown Verified 01/24/24 04:38
Penicillins Allergy unknown; Verified 01/24/24 04:38
tolerated
cephalexin
June 2020
shellfish derived Allergy Unknown Verified 01/24/24 04:38
Sulfa (Sulfonamide Allergy Unknown Verified 01/24/24 04:38
Antibiotics)
tomato Allergy Unknown Verified 01/24/24 04:38
�Medication �Instructions �Recorded �Confirmed �Type
allopurinol 300 mg tablet 300 mg PO DAILY Gout 06/08/20 09/25/24 History
cholecalciferol (vitamin D3) 25 1,000 units PO DAILY Supplement 06/08/20 09/25/24 History
mcg (1,000 unit) tablet
metformin 1,000 mg tablet 1,000 mg PO BID Diabetes 06/08/20 09/25/24 History
ondansetron HCl 4 mg tablet 4 mg PO Q8HPRN PRN nausea 05/04/21 09/25/24 History
acetaminophen 325 mg tablet 650 mg PO Q6HPRN PRN back pain 05/28/21 09/25/24 History
insulin glulisine U-100 100 8 unit SC DAILY Diabetes 09/13/21 09/25/24 History
unit/mL subcutaneous pen (Apidra
SoloStar U-100 Insulin)
olanzapine 10 mg tablet (Zyprexa) 15 mg PO HS mental health 09/13/21 09/25/24 History
fluoxetine 10 mg capsule (Prozac) 20 mg PO DAILY Depression 02/07/22 09/25/24 History
furosemide 40 mg tablet 40 mg PO DAILY Fluid 02/08/22 09/25/24 History
retention/Swelling
benzonatate 100 mg capsule 100 mg PO TIDPRN PRN COUGH 04/12/23 09/25/24 History
ezetimibe 10 mg tablet (Zetia) 10 mg PO DAILY High Cholesterol 04/12/23 09/25/24 History
glucagon 3 mg/actuation nasal 3 mg intranasal DAILYPRN PRN 04/12/23 09/25/24 History
spray (Baqsimi) severe hypoglycemia
insulin glargine 100 unit/mL (3 21 unit SC DAILY Diabetes 04/12/23 09/25/24 History
mL) subcutaneous pen (Lantus
Solostar U-100 Insulin)
loperamide 2 mg tablet 2 mg PO Q6HPRN PRN diarrhea 04/12/23 09/25/24 History
polyethylene glycol 3350 17 gram 17 g PO BIDPRN PRN constipation 04/12/23 09/25/24 History
oral powder packet (Miralax)
valacyclovir 500 mg tablet 1,000 mg PO BID 04/12/23 09/25/24 History
docusate sodium 100 mg capsule 100 mg PO BID Constipation 07/26/23 09/25/24 History
guaifenesin 600 mg tablet, 600 mg PO BID Congestion 07/26/23 09/25/24 History
extended release 12 hr (Mucinex)
magnesium hydroxide 400 mg/5 mL 2,400 mg PO BIDPRN PRN constipation 07/26/23 09/25/24 History
oral suspension (Milk of Magnesia)
albuterol sulfate 2.5 mg/3 mL 2.5 mg inhalation R Q6HPRN PRN sob 10/31/23 09/25/24 History
(0.083 %) solution for nebulization
benzoyl peroxide 5 % topical 1 applic topical DAILY boil-prone 10/31/23 09/25/24 History
cleanser areas
clonazepam 1 mg tablet 1.5 mg PO HS Mental Health/Anxiety 10/31/23 09/25/24 History
lorazepam 2 mg tablet 2 mg PO Q8HPRN PRN anxeity 10/31/23 09/25/24 History
amlodipine 5 mg tablet 5 mg PO DAILY Blood Pressure 01/24/24 09/25/24 History
ibuprofen 200 mg tablet (Advil) 600 mg PO Q8HPRN PRN severe pain 01/24/24 09/25/24 History
olanzapine 5 mg tablet 5 mg PO [id number] PRN Agitation 01/24/24 09/25/24 History
pantoprazole 40 mg tablet,delayed 40 mg PO DAILY Gastrointestinal 01/24/24 09/25/24 History
release Issue
theophylline 300 mg 300 mg PO DAILY Lung/Breathing 01/24/24 09/25/24 History
capsule,extended release 24 hr Issues
aluminum-mag hydroxide-simethicone 15 ml PO BIDPRN PRN indigestion 09/25/24 09/25/24 History
200 mg-200 mg-20 mg/5 mL oral susp
(Iris-Lanta)
atorvastatin 20 mg tablet (Lipitor) 20 mg PO HS 09/25/24 09/25/24 History
dapagliflozin propanediol 10 mg 10 mg PO DAILY 09/25/24 09/25/24 History
tablet (Farxiga)
dextromethorphan-guaifenesin 10 10 ml PO Q6HPRN PRN cough 09/25/24 09/25/24 History
mg-100 mg/5 mL oral liquid
(Guaiasorb DM)
divalproex 500 mg tablet,extended 1,000 mg PO HS 09/25/24 09/25/24 History
release 24 hr
furosemide 20 mg tablet (Lasix) 40 mg PO DAILYPRN PRN fluid 09/25/24 09/25/24 History
gabapentin 100 mg capsule 100 mg PO TIDPRN PRN mild pain 09/25/24 09/25/24 History
insulin glulisine U-100 100 9 sliding scale dose SC BID 09/25/24 09/25/24 History
unit/mL subcutaneous pen (Apidra
SoloStar U-100 Insulin)
levothyroxine 100 mcg tablet 100 mcg PO DAILY 09/25/24 09/25/24 History
(Synthroid)
melatonin 5 mg tablet 5 mg PO HS 09/25/24 09/25/24 History
mometasone-formoterol HFA 100 1 puff inhalation R BID 09/25/24 09/25/24 History
mcg-5 mcg/actuation aerosol
inhaler (Dulera)
therapeutic multivitamin 1 tab PO DAILY 09/25/24 09/25/24 History
Review of Systems
-
History Source: Patient and Transfer Record
All other systems: Negative unless noted
A 10 point review of systems was completed, and was negative except as per HPI.
Physical Exam
Vital Signs
Temp Pulse Resp BP Pulse Ox
98.4 F 86 16 137/45 94
09/26/24 07:00 09/26/24 08:43 09/26/24 07:45 09/26/24 08:43 09/26/24 07:45
09/25/24 09/26/24 09/27/24
06:59 06:59 06:59
Actual Weight 88.252 kg
Body Mass Index (BMI) 36.8
Lab Results
09/26/24 05:47
09/26/24 05:47
WBC 11.2 10^3/uL (4.8-10.8) H 09/26/24 05:47
Hgb 12.9 g/dL (12.0-16.0) 09/26/24 05:47
Hct 38.6 % (37.0-47.0) 09/26/24 05:47
Plt Count 217 10^3/uL (130-400) 09/26/24 05:47
Abs Immat Gran (auto) 0.1 10^3/uL (0-0.05) H 09/26/24 05:47
Neutrophils % 69.8 % (42.2-75.2) 09/26/24 05:47
Physical Exam
General: Other (disheveled, poor hygeine)
HEENT: Normocephalic and Anicteric
Respiratory: Non Labored Respirations
GI: Soft, Tender (generalized more to the lower abd) and Distended
Skin: Warm and Dry
Neuro: Awake, Alert and AO x 3
Psych: Calm
Data Reviewed
-
CT Scan: Image Personally Visualized and interpreted, Report Reviewed by me, Discussed with Physician and Discussed with Patient
Labs: Labs Reviewed by me, Discussed with Physician and Discussed with Patient
Old Records: Reviewed
Assessment / Plan
-
Ms Cartwright is a 64 yo female COPD, intubated January 2024 for hypoxic hypercarbic respiratory failure, CHF, CIELO with cpap, rectal prolapse repair with sigmoidectomy, and appendectomy who presents from her alf with reported history of no
BM x5 days with generalized abdominal pain and intermittent nausea. CT imaging with significant stool burden/severe constipation which is the likely etiology of her symptoms. Surgery consulted as CT with findings of a distended gallbladder, on
review this is minimal without significant wall thickening or surrounding inflammation. No focal tenderness on exam. Mild transaminitis with normal bilirubin. Doubt cholecystitis. If pt does develop RUQ pain, can consider additional imaging (US vs
HIDA)
Plan:
No plans for surgery at this time
Bowel regimen as per primary team, consider GI eval if ineffective
ABX/medical management as per primary team
[2024-09-26 12:54] LABS: Glucose - Point of Care 281 mg/dl (70-99)
--- NOTE | 2024-09-26 13:36 | CM ---
Patient seen at bedside on . Patient is a fdc care patient at [facility]. Patient is normally independent of IADL's and self care at baseline, Patient has a wheelchair and per prior chart review has
had home O2 in the past. Patient has not needed SNF or VN in the past.
Pt does have prescription coverage and rx's are filled through [facility] [phone]. Oxygen at home through [employer] per prior chart review.
Mirian Tavarez Mold Worker [phone]. CM will leave message to confirm discharge plan at this time. Patient would benefit from PT/OT assessment to confirm patient ability to return to [facility]. CM will continue to follow for discharge
planning needs.
PlAN: return to [facility].
[2024-09-26] MEDS: NOVOLOG FLEXPEN-MODERATE RESISTANCE 5 UNITS SC (14:10)
--- NOTE | 2024-09-26 14:20 | PTCARENOTE ---
Pt's lunch time blood sugar 281. Made Dr. Mann Chavez aware. Order provided to change Novolog low resistance coverage to moderate resistance, will monitor.
[2024-09-26 15:00] VITALS: BP 158/76
--- NOTE | 2024-09-26 15:27 | PTCARENOTE ---
Pt has had two moderate amounts of brown loose/soft bowel movements since milk of molasses enema. Made Dr. Chavez aware of results from enema.
[2024-09-26 17:25] LABS: Glucose - Point of Care 213 mg/dl (70-99)
[2024-09-26] MEDS: NOVOLOG FLEXPEN-MODERATE RESISTANCE 3 UNITS SC (17:39)
[2024-09-26] MEDS: LOVENOX 40 MG SC (17:40)
[2024-09-26] MEDS: STERILE WATER FOR INJECTION 10 ML IV (17:41)
[2024-09-26] MEDS: ROCEPHIN 1000 MG IV (17:41)
[2024-09-26] MEDS: KLONOPIN 1.5 MG PO (21:11)
[2024-09-26] MEDS: DEPAKOTE ER (24 HR RELEASE) 1000 MG PO (21:12)
[2024-09-26] MEDS: ZYPREXA 15 MG PO (21:12)
[2024-09-26] MEDS: MELATONIN 5 MG PO (21:12)
[2024-09-26 21:13] LABS: Glucose - Point of Care 263 mg/dl (70-99)
[2024-09-26] MEDS: LANTUS 0.05 UNITS SC (21:17)
[2024-09-26 22:01] VITALS: PULSE 92
[2024-09-26 23:24] VITALS: BP 162/74
[2024-09-27] MEDS: TYLENOL 650 MG PO ×3 (00:25→15:25)
[2024-09-27] MEDS: D5/0.45%NACL 1000 IV ×2 (01:58→17:57)
[2024-09-27 03:10] VITALS: PULSE 90
[2024-09-27] MEDS: SYNTHROID 100 MCG PO (05:25)
[2024-09-27 06:00] VITALS: BMI 36.9
[2024-09-27 07:00] VITALS: BP 160/93
[2024-09-27] MEDS: SYMBICORT 80/4.5 MCG INHALER 2 PUFF INH ×2 (07:38→18:33)
[2024-09-27 08:31] LABS: Glucose - Point of Care 159 mg/dl (70-99)
[2024-09-27 08:32] LABS: ALT (SGPT) 47 U/L (0-35); AST (SGOT) 49 U/L (14-36); Albumin 3.7 g/dl (3.5-5.0); Alkaline Phosphatase 101 U/L (38-126); Blood Urea Nitrogen 16 mg/dl (7-17); Calcium 8.8 mg/dl (8.4-10.2); Carbon Dioxide 30 mmol/L (22-30); Chloride 101 mmol/L (98-107); Estimated Creatinine Clearance 82 ml/min; Glucose 158 mg/dl (70-99); Potassium 4.6 mmol/L (3.5-5.1); Sodium 138 mmol/L (135-145); Total Protein 6.2 g/dl (6.3-8.2); eGFR > 60.00
[2024-09-27] MEDS: ZYLOPRIM 300 MG PO (08:45)
[2024-09-27] MEDS: FARXIGA 10 MG PO (08:45)
[2024-09-27] MEDS: VALTREX 1000 MG PO ×2 (08:45→19:52)
[2024-09-27] MEDS: MIRALAX 17 GRAMS PO ×2 (08:45→20:03)
[2024-09-27] MEDS: THERAGRAN 1 TABLET PO (08:46)
[2024-09-27] MEDS: NORVASC 5 MG PO (08:46)
[2024-09-27] MEDS: PROTONIX 40 MG PO (08:46)
[2024-09-27] MEDS: ZETIA 10 MG PO (08:46)
[2024-09-27] MEDS: PROZAC 20 MG PO (08:46)
[2024-09-27] MEDS: THEO DUR 300 MG PO (08:46)
[2024-09-27] MEDS: FLAGYL 500 MG 100 IV ×3 (08:49→23:26)
[2024-09-27] MEDS: MYCOSTATIN ORAL SUSPENSION 5 ML PO ×2 (08:49→17:53)
[2024-09-27] MEDS: NOVOLOG FLEXPEN-MODERATE RESISTANCE 1 UNITS SC (08:51)
[2024-09-27 09:02] LABS: Hematocrit 37.5 % (37.0-47.0); Hemoglobin 12.6 g/dL (12.0-16.0); Mean Corp Hgb Conc. 33.6 g/dL (33.0-37.0); Mean Corpuscular Volume 108.7 fL (81.0-99.0); Nucleated Red Blood Cells % 0 %; Platelet Count 205 10^3/uL (130-400); Red Cell Dist. Width 14.3 % (11.5-14.5)
--- NOTE | 2024-09-27 11:28 | W.PN.GS2 ---
Addendum entered and electronically signed by West Erickson MD 09/27/24 12:44:
I saw and examined the patient.
The Software Performance Engineer's note was reviewed and I agree with the note.
Comment: Many large BMs yesterday, she reports ongoing ab pain, on exam her abd is distended and diffusely ttp. No focal ttp to RUQ nor any other location. Rec GI consult for chronic constipation with abd pain. No plan for surgery at this time.
Will follow peripherally
Original Note:
Today's Communication / Plan
-
GI eval
Assessment / Plan
-
64 yo female COPD, intubated January 2024 for hypoxic hypercarbic respiratory failure, CHF, CIELO with cpap, rectal prolapse repair with sigmoidectomy, and appendectomy who presents from her alf with reported history of no BM x5 days with
generalized abdominal pain and intermittent nausea.
Reviewed US results: Somewhat prominent size gallbladder with minimal wall thickening but no stones. Positive sonographic Murillo's sign detected on US; however, patient tender throughout the abdomen on exam. Low suspicion for cholecystitis.
No further leukocytosis.
AFVSS on O2
Passing some stools with enemas but still distended with generalized pain.
Plan:
No plan for surgery at this time
Would recommend GI consult given persistent constipation/discomfort
Clears as tolerated
Subjective Data
-
Date of Service: September 27, 2024
Pt seen and examined at bedside with Dr. Erickson. Generalized abdominal discomfort. Passed some stools yesterday, mostly liquid per nursing team. More alert today.
Objective Data
-
Intake and Output
09/26/24 09/27/24 09/28/24
06:59 06:59 06:59
Intake Total 600 / 600 2500 / 2500
Output Total 250 / 250
Balance 600 / 600 2250 / 2250
Intake:
Oral fluids 0 / 0 1560 / 1560
IV fluids (Total) 600 / 600 840 / 840
IV piggybacks 100 / 100
Output:
Urine, Voided 250 / 250
Other:
Number of approximated MODERATE 1 3
amounts of urine
Vital Signs
Temp Pulse Resp BP Pulse Ox
98.4 F 90 18 160/93 93
09/27/24 07:00 09/27/24 08:46 09/27/24 07:42 09/27/24 08:46 09/27/24 08:00
Lab Results
09/27/24 08:50
09/27/24 06:12
Calcium 8.8 mg/dl (8.4-10.2) 09/27/24 06:12
Magnesium Cancelled 09/25/24 13:27
Total Bilirubin 0.7 mg/dl (0.2-1.3) 09/27/24 06:12
Direct Bilirubin 0.4 mg/dl (0.0-0.4) 09/25/24 18:15
AST 49 U/L (14-36) H 09/27/24 06:12
ALT 47 U/L (0-35) H 09/27/24 06:12
Alkaline Phosphatase 101 U/L (38-126) 09/27/24 06:12
Total Protein 6.2 g/dl (6.3-8.2) L 09/27/24 06:12
Albumin 3.7 g/dl (3.5-5.0) 09/27/24 06:12
Physical Exam
-
NAD
ABD soft, distended, generalized tenderness l>r
[2024-09-27 11:39] LABS: Glucose - Point of Care 253 mg/dl (70-99)
[2024-09-27] MEDS: NOVOLOG FLEXPEN-MODERATE RESISTANCE 5 UNITS SC (12:36)
[2024-09-27] MEDS: MYCOSTATIN ORAL SUSPENSION PO ×2 (14:21→21:55)
[2024-09-27 15:00] VITALS: BP 166/83
--- NOTE | 2024-09-27 15:53 | W.PN.HOSP.TC ---
Today's Communication/Plan
-
Assessment / Plan
Assessment / Plan
General: Well Developed, Well Nourished and Other (malodorous and appears soiled in urine)
HEENT: Normocephalic and Atraumatic
Respiratory: Clear to Auscultation
Cardiac: Regular Rhythm
GI: Soft, Nondistended and Tender (diffuse)
Musculoskeletal: No Clubbing and No Cyanosis
Neuro: Awake, Alert, Oriented and AO x 3
Psych: Calm
abdominal pain
- As to cause suspect likely chronic constipation, general surgery is recommended GI
Do not believe that acute cholecystitis is causing this of discomfort especially as abdominal pain is diffuse
continue bowel reg
ggi and surgery following
Hx hypoxic hypercarbic respiratory failure requiring intubation for LLL PNA 01/24 extubation 02/04/2024
COPD/asthma�no acute exacerbation
Continue albuterol as needed
- Continue theophylline 300 mg p.o. daily
CIELO on CPAP
Chronic CHF preserved EF
Mild aortic stenosis
I/O, daily weights
-Hold Lasix 40 mg daily and 40 mg daily as needed, continue Farxiga 10 mg daily
Schizophrenia
Bipolar disorder with borderline personality disorder
- Continue clonazepam 1.5 mg at bedtime, continue divalproex 1000 mg at bedtime , continue Prozac 20 mg daily
- Continue lorazepam 2 mg p.o. every 8 hours as needed anxiety
- Continue olanzapine 15 mg p.o. at bedtime and olanzapine 5 mg p.o. every 12 hours as needed agitation
DM2/steroid-induced hyperglycemia
- Currently, NPO, Will start Dextrose containing fluids
- Can continue lower dose home insulin
- Accucchks bg 140-180
- Hold metformin in off chance if she needs an inpatient contrast study
HTN
-Continue amlodipine 5 mg daily with hold parameters
HLD
-Continue Zetia 10 mg daily, Lipitor 20 mg at bedtime
Hypothyroidism
-Continue levothyroxine 100 mcg p.o. daily
GERD
-Protonix 40 mg daily
Chronic herpes virus
-Continue valacyclovir 1000 mg p.o. twice daily
Class II obesity�BMI 37.4
Dietary/lifestyle modification
Oral thrush likely secondary to corticosteroid inhaler
-Nystatin swish and spit
-Recommended patient rinse mouth out after using inhaler
Anticipated Discharge: > 48 hours
Subjective/Interval History
-
Date of Service: September 27, 2024
Seen and examined. No new complaints. No acute overnight events.
Has had multiple large BMs
Still has abdominal pain
Objective Data
-
Labs:
Laboratory Results
09/27/24 09/27/24
06:12 08:50
WBC Cancelled 10.4
Hgb Cancelled 12.6
Hct Cancelled 37.5
Plt Count Cancelled 205
Sodium 138
Potassium 4.6
Chloride 101
Carbon Dioxide 30
BUN 16
Creatinine 0.7
Glucose 158 H
Calcium 8.8
Total Bilirubin 0.7
AST 49 H
ALT 47 H
Alkaline Phosphatase 101
Vital Signs:
Vital Signs
Temp Pulse Resp BP Pulse Ox
98.3 F 90 18 166/83 93
09/27/24 15:00 09/27/24 15:00 09/27/24 15:00 09/27/24 15:00 09/27/24 15:00
I&O
09/26/24 09/27/24 09/28/24
06:59 06:59 06:59
Intake Total 600 / 600 2500 / 2500
Output Total 250 / 250
Balance 600 / 600 2250 / 2250
[2024-09-27 16:45] LABS: Glucose - Point of Care 211 mg/dl (70-99)
[2024-09-27] MEDS: NOVOLOG FLEXPEN-MODERATE RESISTANCE 3 UNITS SC (16:51)
[2024-09-27] MEDS: LOVENOX 40 MG SC (17:55)
[2024-09-27] MEDS: STERILE WATER FOR INJECTION 10 ML IV (17:56)
[2024-09-27] MEDS: ROCEPHIN 1000 MG IV (17:57)
[2024-09-27] MEDS: KLONOPIN 1.5 MG PO (20:04)
[2024-09-27] MEDS: DEPAKOTE ER (24 HR RELEASE) 1000 MG PO (20:05)
[2024-09-27] MEDS: ZYPREXA 15 MG PO (20:06)
[2024-09-27] MEDS: TORADOL 10 MG IV (20:30)
[2024-09-27 21:45] LABS: Glucose - Point of Care 202 mg/dl (70-99)
[2024-09-27] MEDS: LANTUS 0.08 UNITS SC (21:50)
[2024-09-27] MEDS: MELATONIN PO (21:55)
[2024-09-27 22:30] VITALS: PULSE 94
[2024-09-27 23:24] VITALS: BP 150/81
[2024-09-28] MEDS: SYNTHROID 100 MCG PO (05:57)
[2024-09-28 06:00] VITALS: BMI 37.7
[2024-09-28] MEDS: TYLENOL 650 MG PO ×2 (06:15→21:49)
[2024-09-28 06:58] LABS: Hematocrit 34.8 % (37.0-47.0); Hemoglobin 12.0 g/dL (12.0-16.0); Mean Corp Hgb Conc. 34.5 g/dL (33.0-37.0); Mean Corpuscular Volume 107.4 fL (81.0-99.0); Nucleated Red Blood Cells % 0 %; Platelet Count 213 10^3/uL (130-400); Red Cell Dist. Width 13.7 % (11.5-14.5)
[2024-09-28 07:21] LABS: ALT (SGPT) 41 U/L (0-35); AST (SGOT) 30 U/L (14-36); Albumin 3.5 g/dl (3.5-5.0); Alkaline Phosphatase 99 U/L (38-126); Blood Urea Nitrogen 15 mg/dl (7-17); Calcium 9.2 mg/dl (8.4-10.2); Carbon Dioxide 31 mmol/L (22-30); Chloride 101 mmol/L (98-107); Estimated Creatinine Clearance 83 ml/min; Glucose 148 mg/dl (70-99); Potassium 4.4 mmol/L (3.5-5.1); Sodium 140 mmol/L (135-145); Total Protein 6.0 g/dl (6.3-8.2); eGFR > 60.00
[2024-09-28] MEDS: SYMBICORT 80/4.5 MCG INHALER 2 PUFF INH ×2 (07:44→20:09)
[2024-09-28 08:05] LABS: Glucose - Point of Care 173 mg/dl (70-99)
[2024-09-28 08:08] VITALS: BP 139/81
[2024-09-28] MEDS: FLAGYL 500 MG 100 IV ×2 (08:09→15:25)
[2024-09-28] MEDS: FLUSH (NSS) 1 FLUSH IV ×3 (08:09→17:48)
[2024-09-28] MEDS: NOVOLOG FLEXPEN-MODERATE RESISTANCE 1 UNITS SC ×2 (08:10→17:51)
[2024-09-28] MEDS: MIRALAX 17 GRAMS PO ×2 (08:11→21:44)
[2024-09-28] MEDS: NORVASC 5 MG PO (08:11)
[2024-09-28] MEDS: ZYLOPRIM 300 MG PO (08:11)
[2024-09-28] MEDS: PROTONIX 40 MG PO (08:11)
[2024-09-28] MEDS: FARXIGA 10 MG PO (08:11)
[2024-09-28] MEDS: THERAGRAN 1 TABLET PO (08:12)
[2024-09-28] MEDS: VALTREX 1000 MG PO ×2 (08:12→21:45)
[2024-09-28] MEDS: THEO DUR 300 MG PO (08:12)
[2024-09-28] MEDS: ZETIA 10 MG PO (08:12)
[2024-09-28] MEDS: PROZAC 20 MG PO (08:12)
[2024-09-28] MEDS: MYCOSTATIN ORAL SUSPENSION PO ×4 (08:13→21:47)
--- NOTE | 2024-09-28 10:00 | CON.GI ---
Addendum entered and electronically signed by Nahed Coles Do, MD 09/28/24 16:35:
I saw and examined the patient.
The FINANCIAL PLANNING ASSISTANT's note was reviewed and I agree with the note.
Comment: Memo is a 64yo W with h/o schizophrenia, CHF and bipolar admitted from care home with abd pain. Abd US + murillo's concern for possible acalculous cholecystitis. GI consulted for severe constipation and stool burden on CT scan. She is
not able to provide much history but was trying to have BM in room during my interview. Vitals stable. exam large tongue slowed speech, diffusely TTP no guarding rebound. Labs reviewed.
Impression
- Severe chronic constipation
Stool burden mostly on R side
- + Murillo's sign and concern for acalculous cholecystitis
-
- Schizophrenia
- Bipolar disorder
- HTN
- DM
- COPD
- Asthma
- CIELO
Recommendation
- C/w bowel regimen
- Ducolax and lactulose today
- AXR tomorrow
- C/w CLD
- Reviewed HIDA scan plan from surgery to do CYY tomorrow noted.
- C/w PPI
Will follow with you
Original Note:
Consultation
-
Date/Time Consultation Requested: 09/27/24 7205
Date/Time Consultation Performed: 09/28/24 9819
Requesting Provider: Dr. Erickson
Performing Provider: Dr. Kenyon/SIA Sandhu
Reason for Consultation: constipation
Medical History
Chief Complaint / HPI
Chief Complaint: abdominal pain
History of Present Illness:
64-year-old female with past medical history of Schizophrenia, chronic CHF with preserved EF, mild aortic stenosis, bipolar disorder, borderline personality disorder, diabetes, hypertension, hypothyroidism, COPD, asthma, obstructive sleep apnea on
CPAP, GERD, anemia chronic disease, iron deficiency, pneumonia, hypoxic hypercarbic respiratory failure, rectal prolapse repair presents to the emergency room with abdominal pain and no bowel movement for 5 days. He also had intermittent nausea.
We are asked to evaluate for constipation.Since patient's arrival she did have a moderate bowel movement on 09/26/2024. At the present time when asked the patient does state that she has nausea without any vomiting. She does have abdominal
discomfort. She points to the right side of her abdomen. The patient cannot give much of a history. Did present with a mild leukocytosis of 11.2 which is now down to 8.2 on on cefepime and Flagyl. She is afebrile. She did have mildly elevated
AST and ALT that is coming down. Ultrasound the abdomen shows somewhat prominent size gallbladder with wall thickening questionable pericholecystic fluid. Positive sonographic Murillo sign. No findings to suggest biliary tract dilatations.
Findings could represent acalculous cholecystitis. CT of the abdomen pelvis performed on 09/25/2024 shows acute cholecystitis with gallbladder distention, wall thickening and pericholecystic inflammation. Severe constipation with distention of the
ascending and transverse colon with large amount of fecal material. This was prior to bowel movement. Severe chronic bilateral renal disease. Previous sigmoidectomy and appendectomy. Moderate pancreatic lipomatosis. Discussed with surgery
patient is going for HIDA scan today.
Past Medical History
Past Medical History: Other (Schizophrenia, chronic CHF with preserved EF, mild aortic stenosis, bipolar disorder, borderline personality disorder, diabetes, hypertension, hypothyroidism, COPD, asthma, obstructive sleep apnea on CPAP, GERD, anemia
chronic disease, iron deficiency, pneumonia, hypoxic hypercarbic respiratory fail)
Past Surgical History: Other (Appendectomy, bowel resection rectal prolapse with sigmoid resection, right arm surgery)
Social History
Tobacco: Non-Smoker
Alcohol: None
Drug: None
Personal: Single
Living: Other (custodial)
Employment: Disabled
Family History
Family History: Unable to Obtain
Allergies / Home Medications
Allergy/AdvReac Type Severity Reaction Status Date / Time
bee venom protein (honey bee) Allergy Unknown Verified 01/24/24 04:38
benzonatate (From Tessalon Allergy Rash Verified 01/24/24 04:38
Perles)
codeine Allergy Unknown Verified 01/24/24 04:38
egg Allergy Unknown Verified 01/24/24 04:38
fluphenazine (From Prolixin) Allergy Unknown Verified 01/24/24 04:38
haloperidol (From Haldol) Allergy Unknown Verified 01/24/24 04:38
hydroxychloroquine (From Allergy Unknown Verified 01/24/24 04:38
Plaquenil)
Influenza Virus Vaccines Allergy flu vaccine Verified 09/25/24 20:45
iodine Allergy Unknown Verified 01/24/24 04:38
Penicillins Allergy unknown; Verified 01/24/24 04:38
tolerated
cephalexin
June 2020
shellfish derived Allergy Unknown Verified 01/24/24 04:38
Sulfa (Sulfonamide Allergy Unknown Verified 01/24/24 04:38
Antibiotics)
tomato Allergy Unknown Verified 01/24/24 04:38
�Medication �Instructions �Recorded
allopurinol 300 mg tablet 300 mg PO DAILY Gout 06/08/20
cholecalciferol (vitamin D3) 25 1,000 units PO DAILY Supplement 06/08/20
mcg (1,000 unit) tablet
metformin 1,000 mg tablet 1,000 mg PO BID Diabetes 06/08/20
ondansetron HCl 4 mg tablet 4 mg PO Q8HPRN PRN nausea 05/04/21
acetaminophen 325 mg tablet 650 mg PO Q6HPRN PRN back pain 05/28/21
insulin glulisine U-100 100 8 unit SC DAILY Diabetes 09/13/21
unit/mL subcutaneous pen (Apidra
SoloStar U-100 Insulin)
olanzapine 10 mg tablet (Zyprexa) 15 mg PO HS mental health 09/13/21
fluoxetine 10 mg capsule (Prozac) 20 mg PO DAILY Depression 02/07/22
furosemide 40 mg tablet 40 mg PO DAILY Fluid 02/08/22
retention/Swelling
benzonatate 100 mg capsule 100 mg PO TIDPRN PRN COUGH 04/12/23
ezetimibe 10 mg tablet (Zetia) 10 mg PO DAILY High Cholesterol 04/12/23
glucagon 3 mg/actuation nasal 3 mg intranasal DAILYPRN PRN 04/12/23
spray (Baqsimi) severe hypoglycemia
insulin glargine 100 unit/mL (3 21 unit SC DAILY Diabetes 04/12/23
mL) subcutaneous pen (Lantus
Solostar U-100 Insulin)
loperamide 2 mg tablet 2 mg PO Q6HPRN PRN diarrhea 04/12/23
polyethylene glycol 3350 17 gram 17 g PO BIDPRN PRN constipation 04/12/23
oral powder packet (Miralax)
valacyclovir 500 mg tablet 1,000 mg PO BID 04/12/23
docusate sodium 100 mg capsule 100 mg PO BID Constipation 07/26/23
guaifenesin 600 mg tablet, 600 mg PO BID Congestion 07/26/23
extended release 12 hr (Mucinex)
magnesium hydroxide 400 mg/5 mL 2,400 mg PO BIDPRN PRN constipation 07/26/23
oral suspension (Milk of Magnesia)
albuterol sulfate 2.5 mg/3 mL 2.5 mg inhalation R Q6HPRN PRN sob 10/31/23
(0.083 %) solution for nebulization
benzoyl peroxide 5 % topical 1 applic topical DAILY boil-prone 10/31/23
cleanser areas
clonazepam 1 mg tablet 1.5 mg PO HS Mental Health/Anxiety 10/31/23
lorazepam 2 mg tablet 2 mg PO Q8HPRN PRN anxeity 10/31/23
amlodipine 5 mg tablet 5 mg PO DAILY Blood Pressure 01/24/24
ibuprofen 200 mg tablet (Advil) 600 mg PO Q8HPRN PRN severe pain 01/24/24
olanzapine 5 mg tablet 5 mg PO [id number] PRN Agitation 01/24/24
pantoprazole 40 mg tablet,delayed 40 mg PO DAILY Gastrointestinal 01/24/24
release Issue
theophylline 300 mg 300 mg PO DAILY Lung/Breathing 01/24/24
capsule,extended release 24 hr Issues
aluminum-mag hydroxide-simethicone 15 ml PO BIDPRN PRN indigestion 09/25/24
200 mg-200 mg-20 mg/5 mL oral susp
(Iris-Lanta)
atorvastatin 20 mg tablet (Lipitor) 20 mg PO HS 09/25/24
dapagliflozin propanediol 10 mg 10 mg PO DAILY 09/25/24
tablet (Farxiga)
dextromethorphan-guaifenesin 10 10 ml PO Q6HPRN PRN cough 09/25/24
mg-100 mg/5 mL oral liquid
(Guaiasorb DM)
divalproex 500 mg tablet,extended 1,000 mg PO HS 09/25/24
release 24 hr
furosemide 20 mg tablet (Lasix) 40 mg PO DAILYPRN PRN fluid 09/25/24
gabapentin 100 mg capsule 100 mg PO TIDPRN PRN mild pain 09/25/24
insulin glulisine U-100 100 9 sliding scale dose SC BID 09/25/24
unit/mL subcutaneous pen (Apidra
SoloStar U-100 Insulin)
levothyroxine 100 mcg tablet 100 mcg PO DAILY 09/25/24
(Synthroid)
melatonin 5 mg tablet 5 mg PO HS 09/25/24
mometasone-formoterol HFA 100 1 puff inhalation R BID 09/25/24
mcg-5 mcg/actuation aerosol
inhaler (Dulera)
therapeutic multivitamin 1 tab PO DAILY 09/25/24
Review of Systems
-
Unable to obtain full review of systems at this time due to: Other (Difficult to obtain as patient cannot give much of a history)
All other systems: A 12 pt ROS was Negative except as stated above in HPI
Vital Signs
Temp Pulse Resp BP Pulse Ox
97.5 F 81 20 139/81 95
09/28/24 08:08 09/28/24 08:11 09/28/24 08:08 09/28/24 08:11 09/28/24 08:08
Physical Exam
Exam
General: No Apparent Distress
HEENT: Anicteric
Respiratory: Clear (Anterior)
Cardiac: Regular Rhythm
GI: Soft, Non Distended, Normal Bowel Sounds and Tender (Right upper quadrant/epigastric)
Skin: Warm and Dry
Neuro: Awake, Alert and Oriented (To person)
Psych: Calm
Results
WBC 8.2 10^3/uL (4.8-10.8) 09/28/24 06:11
Hgb 12.0 g/dL (12.0-16.0) 09/28/24 06:11
Hct 34.8 % (37.0-47.0) L 09/28/24 06:11
MCV 107.4 fL (81.0-99.0) H 09/28/24 06:11
Plt Count 213 10^3/uL (130-400) 09/28/24 06:11
Absolute Neuts (auto) 4.9 10^3/uL (1.4-6.5) 09/28/24 06:11
Sodium 140 mmol/L (135-145) 09/28/24 06:11
Potassium 4.4 mmol/L (3.5-5.1) 09/28/24 06:11
Chloride 101 mmol/L (98-107) 09/28/24 06:11
Carbon Dioxide 31 mmol/L (22-30) H 09/28/24 06:11
BUN 15 mg/dl (7-17) 09/28/24 06:11
Creatinine 0.7 mg/dL (0.6-1.0) 09/28/24 06:11
Calcium 9.2 mg/dl (8.4-10.2) 09/28/24 06:11
Total Bilirubin 0.6 mg/dl (0.2-1.3) 09/28/24 06:11
AST 30 U/L (14-36) 09/28/24 06:11
ALT 41 U/L (0-35) H 09/28/24 06:11
Alkaline Phosphatase 99 U/L (38-126) 09/28/24 06:11
Lipase 123 U/L (23-300) 09/25/24 13:27
Diagnostic Image Results:
US Gallbladder 08/28/24:
IMPRESSION:
Somewhat prominent size gallbladder with wall thickening and questionable pericholecystic fluid. Positive sonographic Murillo's sign. No findings to suggest biliary tract dilatation. Findings could represent acalculous cholecystitis.
Confirmed [employer] communication with Dr. Erickson at 1113 hours on September 27, 2024.
CT Abd/Pelvis with IV cont 09/25/24:
IMPRESSION:
1. ACUTE CHOLECYSTITIS with gallbladder distention, wall thickening, and pericholecystic inflammation.
2. SEVERE CONSTIPATION with severe distention of the ascending and transverse colon with a large amount of fecal material.
3. Moderate to severe chronic bilateral renal disease.
4. Previous sigmoidectomy and appendectomy.
5. Moderate pancreatic lipomatosis.
6. Severe discogenic degenerative disease at L2/L3 and L3/L4.
Prior GI Procedures:
EGD: unable
Colonoscopy: unable
Assessment / Plan
-
64-year-old female with past medical history of Schizophrenia, chronic CHF with preserved EF, mild aortic stenosis, bipolar disorder, borderline personality disorder, diabetes, hypertension, hypothyroidism, COPD, asthma, obstructive sleep apnea on
CPAP, GERD, anemia chronic disease, iron deficiency, pneumonia, hypoxic hypercarbic respiratory failure, rectal prolapse repair presents to the emergency room with abdominal pain and no bowel movement for 5 days. He also had intermittent nausea.
We are asked to evaluate for constipation. Patient had BM on 09/26/24 without improvement in discomfort. Imaging Suggesting acute cholecystitis. Leukocytosis and transaminases improving with addition of antibiotics. HIDA scan as per general
surgery. Cholecystectomy as per general surgery. Recommend bowel regimen daily.
Impression:
Abd pain likely secondary to acute cholecystitis
Chronic constipation
Plan:
HIDA scan and cholecystectomy per Surgery
Recommend bowel regimen. Continue Miralax BID
It appears patient was only on Dulcolax prn at custodial.
-
-
Thank you for consultation and allowing me to participate in the patient's care. Please call the hospice community liaison GI physician during the after hours with any questions or concerns.
[2024-09-28 10:53] VITALS: BMI 37.7
--- NOTE | 2024-09-28 11:03 | W.PN.GS2 ---
Addendum entered and electronically signed by Johnny Nj MD 09/28/24 15:44:
HIDA scan positive.
Will plan for a laparoscopic cholecystectomy versus percutaneous cholecystostomy tube but favor the former given her psych history.
Will post her for the OR tomorrow.
N.p.o., IV fluids, IV antibiotics.
Addendum entered and electronically signed by Johnny Nj MD 09/28/24 15:43:
I saw and examined the patient independently.
The resident's documentation was reviewed and I agree with the note, assessment and plan except where noted below.
Comment: This is a 64-year-old female who presents with 1 week of abdominal pain from her custodial (patient has a significant psych history), subjective fever noted this past weekend and was sent here. She had a CT scan which was positive for
acute cholecystitis and then had a subsequent ultrasound 2 days later which confirmed a positive sonographic Murillo's however her exam was somewhat equivocal. Today she is much more focal in the right upper quadrant.
Will obtain a HIDA scan to confirm ACC
N.p.o., IV fluids, IV antibiotics.
Surgery will follow.
Original Note:
Today's Communication / Plan
-
Keep NPO
Order HIDA Scan
Continue to follow patient peripherally
Assessment / Plan
-
64 yo female COPD, intubated January 2024 for hypoxic hypercarbic respiratory failure, CHF, CIELO with cpap, rectal prolapse repair with sigmoidectomy, and appendectomy who presents from her custodial with reported history of no BM x5 days with
generalized abdominal pain and intermittent nausea.
Reviewed US results: Somewhat prominent size gallbladder with minimal wall thickening but no stones. Positive sonographic Murillo's sign detected on US; however, patient tender throughout the abdomen on exam. Low suspicion for cholecystitis.
No further leukocytosis.
AFVSS on O2
Passing some stools with enemas but still distended with generalized pain.
Plan:
Order HIDA scan
No plan for surgery at this time
Would recommend GI consult given persistent constipation/discomfort
Continue clears as tolerated
Time Spent
Total Time Spent with Patient (in minutes): 35
Subjective Data
-
Date of Service: September 28, 2024
64-year-old female coming from [facility] with a PMH of sigmoidectomy, states that for the past 5 days she has had generalized abdominal discomfort with nausea decreased appetite and normal bowel movements for the last 5 days. She
denies any fever, chills, chest pain, palpitations, cough, shortness of breath, vomiting or diarrhea when she was admitted on 09/25. Today, she denies nausea, vomiting, diarrhea, fever, bowel movements or flatus. She is unable to get out of bed or
ambulate and she is doing okay on a clears diet. Patient states she is in a lot of pain and rates her pain a 9 out of 10 pointing to her abdomen. She states she has been having this pain for the past week. Patient states that her last meal she was
a sausage.
Objective Data
-
Intake and Output
09/27/24 09/28/24 09/29/24
06:59 06:59 06:59
Intake Total 2500 / 2500 1640 / 1640
Output Total 250 / 250 1340 / 1340
Balance 2250 / 2250 300 / 300
Intake:
Oral fluids 1560 / 1560 1640 / 1640
IV fluids (Total) 840 / 840
IV piggybacks 100 / 100
Output:
Urine, Voided 250 / 250 1340 / 1340
Other:
Number of approximated MODERATE 3
amounts of urine
How many times incontinent 1
SMALL amount urine
How many times incontinent 1
MODERATE amount urine
Vital Signs
Temp Pulse Resp BP Pulse Ox
97.5 F 81 20 139/81 95
09/28/24 08:08 09/28/24 08:11 09/28/24 08:08 09/28/24 08:11 09/28/24 10:53
Lab Results
09/28/24 06:11
09/28/24 06:11
Calcium 9.2 mg/dl (8.4-10.2) 09/28/24 06:11
Magnesium Cancelled 09/25/24 13:27
Total Bilirubin 0.6 mg/dl (0.2-1.3) 09/28/24 06:11
Direct Bilirubin 0.4 mg/dl (0.0-0.4) 09/25/24 18:15
AST 30 U/L (14-36) 09/28/24 06:11
ALT 41 U/L (0-35) H 09/28/24 06:11
Alkaline Phosphatase 99 U/L (38-126) 09/28/24 06:11
Total Protein 6.0 g/dl (6.3-8.2) L 09/28/24 06:11
Albumin 3.5 g/dl (3.5-5.0) 09/28/24 06:11
AFVSS
Labs: WC BC count decreased from 10.4-8.2. Neutrophils decreased and lymphocytes increased.
U/S Abdomen: Prominent size gallbladder with minimal wall thickening but no stones. Positive sonographic Murillo sign.
Physical Exam
-
General: Patient is not very alert.
Chest: Nonlabored breathing
Abdomen: Distended all over abdominal area. TTP on right abdominal side. Positive Murillo sign.
Patient has a dorman catheter: No
Patient has a central line: No
--- NOTE | 2024-09-28 11:33 | CM ---
Pt on oxygen 4 liters NC via Pox 95%. Home oxygen with [employer] .
Lives care home at [facility] Contact Mirian [employer] [phone] closer [address] [place]
Requested PT OT evdamaris from when appropriate.
For HIDA scan.
PLAN On going discharge planning
--- NOTE | 2024-09-28 13:20 | W.PN.HOSP.TC ---
Today's Communication/Plan
-
CBC, CMP
NPO for giselle surgery
Assessment / Plan
Assessment / Plan
64 yr old F with constipation k/h/o hypoxic hypercarbic respiratory failure
# Constipation:
-patient is taking Olanzapine, Amlodipine, theophylline, loperamide 2 mg might be the cause for chronic constipation.
CT Abdomen on 09/25:
1.SEVERE CONSTIPATION with severe distention of the ascending and transverse colon with a large amount of fecal material.
2. Previous sigmoidectomy and appendectomy.
-Continue IV ceftriaxone 1g , Flagyl 500 mg
-Patient had prior colonic resection and does not remember having a follow-up or recent colonoscopy.
GIT consultation includes: Bowel regimen, and advised to stop narcotics painkiller could be the cause suspect likely chronic constipation.
# Abdominal pain:
USG Abdomen:
�Prominent size gall bladder with thickening of pericholecystic fluid,
Positive [place] sign
HIDA scan:
-Activity about the gallbladder and not within the gallbladder proper suggestive of possible acute cholecystitis unfortunately cannot be differentiated.
Acalculus cholecystitis
- Patient kept on NPO for tomorrow surgery.
# Hx hypoxic hypercarbic respiratory failure requiring intubation for LLL PNA 01/24 extubation 02/04/2024
# COPD/asthma�no acute exacerbation
-Continue albuterol as needed
- Continue theophylline 300 mg p.o. daily
#CIELO on CPAP
#Chronic CHF preserved EF
Mild aortic stenosis
I/O, daily weights
-Hold Lasix 40 mg daily and 40 mg daily as needed, continue Farxiga 10 mg daily
#Schizophrenia
Bipolar disorder with borderline personality disorder
- Continue clonazepam 1.5 mg at bedtime, continue divalproex 1000 mg at bedtime , continue Prozac 20 mg daily
- Continue lorazepam 2 mg p.o. every 8 hours as needed anxiety
- Continue olanzapine 15 mg p.o. at bedtime and olanzapine 5 mg p.o. every 12 hours as needed agitation
# DM2/steroid-induced hyperglycemia
- Currently, NPO, Will start Dextrose containing fluids
- Can continue lower dose home insulin
- Accucchks bg 140-180
- Hold metformin in off chance if she needs an inpatient contrast study
# HTN
-Continue amlodipine 5 mg daily with hold parameters
#HLD
-Continue Zetia 10 mg daily, Lipitor 20 mg at bedtime
#Hypothyroidism
-Continue levothyroxine 100 mcg p.o. daily
#GERD
-Protonix 40 mg daily
#Chronic herpes virus
-Continue valacyclovir 1000 mg p.o. twice daily
Class II obesity�BMI 37.4
Dietary/lifestyle modification
#Oral thrush likely secondary to corticosteroid inhaler
-pt is not willing to take Nystatin swish and spit
-Recommended patient rinse mouth out after using inhaler
DVT prophylaxis: Lovenax sc
CODE: FULL
Anticipated Discharge: 24 - 48 hours
Subjective/Interval History
-
Date of Service: September 28, 2024
Abdominal pain, constipation for 5 days not relieved with enema. Pt passed flatus overnight. She denies fever,� cough, chills, chest pain, Shortness of breath , sore throat, vomiting, diarrhea.
Objective Data
-
Labs:
09/28/24 06:11
09/28/24 06:11
Laboratory Results
Total Bilirubin 0.6 mg/dl (0.2-1.3) 09/28/24 06:11
AST 30 U/L (14-36) 09/28/24 06:11
ALT 41 U/L (0-35) H 09/28/24 06:11
Alkaline Phosphatase 99 U/L (38-126) 09/28/24 06:11
Lipase 123 U/L (23-300) 09/25/24 13:27
Laboratory Results
09/28/24
06:11
WBC 8.2
Hgb 12.0
Hct 34.8 L
Plt Count 213
Sodium 140
Potassium 4.4
Chloride 101
Carbon Dioxide 31 H
BUN 15
Creatinine 0.7
Glucose 148 H
Calcium 9.2
Total Bilirubin 0.6
AST 30
ALT 41 H
Alkaline Phosphatase 99
Vital Signs:
Vital Signs
Temp Pulse Resp BP Pulse Ox
97.5 F 81 20 139/81 95
09/28/24 08:08 09/28/24 08:11 09/28/24 08:08 09/28/24 08:11 09/28/24 10:53
I&O
09/27/24 09/28/24 09/29/24
06:59 06:59 06:59
Intake Total 2500 / 2500 1640 / 1640
Output Total 250 / 250 1340 / 1340 250 / 250
Balance 2250 / 2250 300 / 300 -250 / -250
Review of Systems
-
History Source: Patient
Respiratory: Reports No Symptoms
Cardiac: Reports No Symptoms
Abdomen/GI: Reports Abdominal Pain, Nausea (non specific abdominal pain which is non radiating, associated with nausea, relieved with NSAID.) and Constipated (for 5 days. )
Genitourinary: Reports No Symptoms
Musculoskeletal: Reports No Symptoms
Skin: Reports No Symptoms
Neuro: Reports No Symptoms
Endocrine: Reports No Symptoms
Hematologic / Lymphatic: Reports No Symptoms
Allergy / Immunology: Reports No Symptoms
Physical Exam
-
General: Morbidly Obese
HEENT: Moist Mucous Membranes and Other (oral thrush )
Respiratory: Clear to Auscultation
Cardiac: Regular Rhythm and S1/S2
GI: Soft, Nontender, Nondistended and Normal Bowel Sounds (hyperechoic bowel sounds)
Genito-urinary: No Costovertebral Tender
Skin: Warm
Neuro: AO x 3
Psych: Calm
--- NOTE | 2024-09-28 14:21 | PTCARENOTE ---
1400 Called to Nuclear medicine to give morphine to this patient for Hida scan. Patient identified. Patient confirmed allergies. VS @1405 P82, R 20, BP 139/79, Pox 98% on RA. MSO4 2mg given IV and flushed. Denies complaint. VS rechecked at
1415- P83, R16, BP 146/80, Pox 95% RA. Patient left in the care of nuclear med staff.
[2024-09-28] MEDS: NOVOLOG FLEXPEN-MODERATE RESISTANCE SC (14:54)
[2024-09-28] MEDS: DULCOLAX 10 MG PO (15:25)
[2024-09-28] MEDS: DUPHALAC/CHRONULAC 30 GRAMS PO (15:25)
--- NOTE | 2024-09-28 15:47 | W.PN.UPDATE ---
Update Note
Progress Note Update
Seen and examined by me independently in collaboration with the chief medical officer.
Lab data and imaging data reviewed.
Addendum as below :
Admitted with abdominal pain and initial imaging including CT of the abdomen pelvis and ultrasound of the abdomen raises concern for acute cholecystitis. Today HIDA scan is positive. Plan for or tomorrow for cholecystectomy noted. Continue with
IV antibiotics.
There is also concurrent concern for constipation. There is significant right sided colon stool with collapsed descending colon. Consult GI for constipation treatments. Patient had prior colonic resection and does not remember having a follow-up
or recent colonoscopy. Today's x-ray shows no obstruction but significant right-sided stools. Continue with current bowel regimen.
[2024-09-28 15:53] VITALS: BP 180/89
[2024-09-28 16:27] VITALS: BMI 37.7
--- NOTE | 2024-09-28 16:41 | PTCARENOTE ---
Pt AAO x3, ALEGRIA; returned from HIDA scan via stretcher, able to ambulated ot bed with assist x1/walker, no c/o weakness/dizziness. VSS. On nc 4 lpm-pulse ox95%, pt with (+) slight MORALES, denies SOB. Abd obese, soft, currently NPO; to start clear
liquids. Voids dark lay urine on BSC without difficulty. Resting comfortably at present. Will continue to monitor
[2024-09-28 17:01] LABS: Glucose - Point of Care 187 mg/dl (70-99)
[2024-09-28] MEDS: LOVENOX 40 MG SC (17:47)
[2024-09-28] MEDS: STERILE WATER FOR INJECTION 10 ML IV (17:48)
[2024-09-28] MEDS: ROCEPHIN 1000 MG IV (17:48)
--- NOTE | 2024-09-28 17:54 | PTCARENOTE ---
Milk/molasses enema 500 ml given- pt able to hold entire amt. OOB to BSC had 1 small/1 mod soft/loose brown BM. Will continue to monitor. Pt aware of NPO past midnight for OR 09/29.
[2024-09-28 21:13] LABS: Glucose - Point of Care 219 mg/dl (70-99)
[2024-09-28] MEDS: ZYPREXA 15 MG PO (21:45)
[2024-09-28] MEDS: DEPAKOTE ER (24 HR RELEASE) 1000 MG PO (21:45)
[2024-09-28] MEDS: KLONOPIN 1.5 MG PO (21:46)
[2024-09-28] MEDS: MELATONIN 5 MG PO (21:46)
[2024-09-28] MEDS: LANTUS 0.08 UNITS SC (21:47)
[2024-09-28 22:40] VITALS: PULSE 84
[2024-09-28 23:42] VITALS: BP 117/54
[2024-09-29] VITALS (17 sets, daily range): BP systolic 129–169; BP diastolic 65–84; PULSE 83; O2SAT 91; BMI 36.9
[2024-09-29] MEDS: FLAGYL 500 MG 100 IV ×3 (00:11→18:37)
--- NOTE | 2024-09-29 02:39 | DOWNTIME ---
There was a [email or web address] Client Driver Examiner Downtime on 09/29/2024 from 0100 to 09/29/2024 at 0220. Downtime documentation of patient's care, including medication administrations, has been reconciled in the electronic record per guidelines. Refer to the
patient's paper chart under the miscellaneous tab to see printed paper medication records and downtime forms.
[2024-09-29] MEDS: SYNTHROID 100 MCG PO (06:22)
[2024-09-29 06:24] LABS: Glucose - Point of Care 138 mg/dl (70-99)
--- NOTE | 2024-09-29 06:46 | W.PN.HOSP.TC ---
Today's Communication/Plan
-
Hold Theophylline 300 mg, Insulin Glargine Farziga 10 mg.
Assessment / Plan
Assessment / Plan
64 yr old F with constipation k/h/o hypoxic hypercarbic respiratory failure
# Constipation:
-patient is taking Olanzapine, Amlodipine, theophylline, loperamide 2 mg might be the cause for chronic constipation.
CT Abdomen on 09/25:
1.SEVERE CONSTIPATION with severe distention of the ascending and transverse colon with a large amount of fecal material.
2. Previous sigmoidectomy and appendectomy.
-Continue IV ceftriaxone 1g , Flagyl 500 mg
-Patient had prior colonic resection and does not remember having a follow-up or recent colonoscopy.
Abdomen X ray (09/28):
There is a nonobstructive bowel gas pattern. There is moderate fecal material throughout the colon. There are surgical clips in the pelvis.
Chest x ray (09/29) :
-There are coarse interstitial markings diffusely which suggests changes of COPD.
-In addition there is more focal airspace disease in the right lower lobe. This may be scarring as patient had previous right lower lobe pneumonia, although acute pneumonia is difficult to exclude completely
GIT consultation includes: Bowel regimen, and advised to stop narcotics painkiller could be the cause suspect likely chronic constipation.
# Abdominal pain:
USG Abdomen:
�Prominent size gall bladder with thickening of pericholecystic fluid,
Positive [place] sign
HIDA scan:
-Activity about the gallbladder and not within the gallbladder proper suggestive of possible acute cholecystitis unfortunately cannot be differentiated.
Acalculus cholecystitis.
PRE OP EVALUATION for elective cholecystectomy:
1.patient is on NPO.
1. ECG On 09/25: Normal Sinus Rhythm, QT Interval, QRS interval.
2. Chest x ray (09/29) :
-There are coarse interstitial markings diffusely which suggests changes of COPD.
-In addition there is more focal airspace disease in the right lower lobe. This may be scarring as patient had previous right lower lobe pneumonia, although acute pneumonia is difficult to exclude completely
3. Hold Theophylline 300 mg, Insulin Glargine Farziga 10 mg.
4. patient medically optimized for planned procedure. Final surgical risk and anaesthesia clearance deferred to respective terms.
# COPD/asthma�no acute exacerbation
#Chronic hypercarbic respiratory failure Pt is on 4 L oxygen nasal cannula
-Continue albuterol as needed
- Continue theophylline 300 mg p.o. daily
#CIELO on CPAP
Hx hypoxic hypercarbic respiratory failure requiring intubation for LLL PNA 01/24 extubation 02/04/2024
#Chronic CHF preserved EF
Mild aortic stenosis
I/O, daily weights
-Hold Lasix 40 mg daily and 40 mg daily as needed, continue Farxiga 10 mg daily
#Schizophrenia
Bipolar disorder with borderline personality disorder
- Continue clonazepam 1.5 mg at bedtime, continue divalproex 1000 mg at bedtime , continue Prozac 20 mg daily
- Continue lorazepam 2 mg p.o. every 8 hours as needed anxiety
- Continue olanzapine 15 mg p.o. at bedtime and olanzapine 5 mg p.o. every 12 hours as needed agitation
# DM2/steroid-induced hyperglycemia
- Currently, NPO, Will start Dextrose containing fluids
- Can continue lower dose home insulin
- Accucchks bg 140-180
- Hold metformin in off chance if she needs an inpatient contrast study
# HTN
-Continue amlodipine 5 mg daily with hold parameters
#HLD
-Continue Zetia 10 mg daily, Lipitor 20 mg at bedtime
#Hypothyroidism
-Continue levothyroxine 100 mcg p.o. daily
#GERD
-Protonix 40 mg daily
#Chronic herpes virus
-Continue valacyclovir 1000 mg p.o. twice daily
Class II obesity�BMI 37.4
Dietary/lifestyle modification
#Oral thrush likely secondary to corticosteroid inhaler
-pt is not willing to take Nystatin swish and spit
-Recommended patient rinse mouth out after using inhaler
DVT prophylaxis: Lovenax sc
CODE: FULL
Anticipated Discharge: 24 - 48 hours
Subjective/Interval History
-
Date of Service: September 29, 2024
Patient does has a concern for abdominal pain mostly on the right side, describing as severe pain. She had bowel movement yesterday with liquid stools. She is not experiencing nausea, vomiting, fever, chills.
Objective Data
-
Labs:
Laboratory Results
Laboratory Results
Total Bilirubin 0.6 mg/dl (0.2-1.3) 09/28/24 06:11
AST 30 U/L (14-36) 09/28/24 06:11
ALT 41 U/L (0-35) H 09/28/24 06:11
Alkaline Phosphatase 99 U/L (38-126) 09/28/24 06:11
Lipase 123 U/L (23-300) 09/25/24 13:27
Vital Signs:
Vital Signs
Temp Pulse Resp BP Pulse Ox
98.1 F 79 20 117/54 96
09/28/24 23:42 09/28/24 23:42 09/28/24 23:42 09/28/24 23:42 09/28/24 23:42
I&O
09/27/24 09/28/24 09/29/24
06:59 06:59 06:59
Intake Total 2500 / 2500 1640 / 1640 440 / 440
Output Total 250 / 250 1340 / 1340 1300 / 1300
Balance 2250 / 2250 300 / 300 -860 / -860
Review of Systems
-
History Source: Patient
Respiratory: Reports No Symptoms
Physical Exam
-
General: No Apparent Distress
HEENT: Moist Mucous Membranes and Oxygen (4 L nasal cannula )
Respiratory: Clear to Auscultation
Cardiac: Regular Rhythm and S1/S2
GI: Tender (right side, murphys sign negative )
Genito-urinary: No Costovertebral Tender
Skin: Warm
Neuro: AO x 3
Hematologic / Lymphatic: No Lymphadenopathy
Psych: Calm
--- NOTE | 2024-09-29 07:37 | W.PN.GS2 ---
Today's Communication / Plan
-
-- Laparoscopic cholecystectomy with cholangiogram
-- NPO, IVF
-- Abx: Ceftriaxone and Flagyl
Assessment / Plan
-
64 yo female COPD, intubated January 2024 for hypoxic hypercarbic respiratory failure, CHF, CIELO with cpap, rectal prolapse repair with sigmoidectomy, and appendectomy who presents from her care home with reported history of no BM x5 days with
generalized abdominal pain and intermittent nausea.
CT Abdomen/Pelvis: Distended GB, wall thickening and edema, constipation
US Abdomen: Somewhat prominent size gallbladder with minimal wall thickening but no stones. Positive sonographic Murillo's sign detected on US; however, patient tender throughout the abdomen on exam. Low suspicion for cholecystitis.
HIDA: No filling of GB
AVSS on sup O2
Repeat labs pending, WBC previously normalized, mild LFT elevations trending down
Clinical history, physical exam, and imaging workup consistent with a diagnosis of acalculous cholecystitis. The natural history and pathophysiology of cholecystitis was reviewed. Workup thus far including ultrasound, CT scan, and HIDA scan were
reviewed. Options for management including procedural management with a cholecystostomy tube versus surgical management with cholecystectomy were considered and discussed. The pros and cons of both approaches was discussed. Specifically, we
discussed just the goal issues as relates to her cholecystostomy tube and potential need for cholecystectomy 6 to 8 weeks post tube placement versus surgical risks. Given her logistical and social situation recommend cholecystectomy.
Plan for a laparoscopic cholecystectomy with possible cholangiogram. The procedure itself, as well as the risks, benefits, and alternatives was discussed. Specifically, we discussed the risk of bleeding, infection, injury to surrounding structures
(bowel, bile ducts), CBD injury, need for open procedure, and general anesthetic complications (including PA and respiratory failure). We have specifically discussed the potential risks for postoperative intubation. Typical post procedure recovery
was discussed. All questions answered. Consent signed.
Of note, patient's caregiver (Mirian Tavarez) was updated and consents to the above-noted procedure as well.
Plan:
-- Laparoscopic cholecystectomy with cholangiogram
-- NPO, IVF
-- Abx: Ceftriaxone and Flagyl
Subjective Data
-
Date of Service: September 29, 2024
Persistent discomfort in RUQ. No nausea or emesis. Denies any prior attacks. No clear association with PO intake. Fevers and chills. Denies jaundice, pale stools or tea colored urine. Passing flatus, does have constipation issues.
Objective Data
-
Intake and Output
09/28/24 09/29/24 09/30/24
06:59 06:59 06:59
Intake Total 1640 / 1640 920 / 920
Output Total 1340 / 1340 1874
Balance 300 / 300 -955 / -955
Intake:
Oral fluids 1640 / 1640 720 / 720
IV piggybacks 200 / 200
Output:
Urine, Voided 1340 / 1340 1874
Other:
Number of approximated MODERATE 1
amounts of urine
How many times incontinent 1
SMALL amount urine
How many times incontinent 1
MODERATE amount urine
Vital Signs
Temp Pulse Resp BP Pulse Ox
98.1 F 79 20 117/54 96
09/28/24 23:42 09/28/24 23:42 09/28/24 23:42 09/28/24 23:42 09/28/24 23:42
Calcium 9.2 mg/dl (8.4-10.2) 09/28/24 06:11
Magnesium Cancelled 09/25/24 13:27
Total Bilirubin 0.6 mg/dl (0.2-1.3) 09/28/24 06:11
Direct Bilirubin 0.4 mg/dl (0.0-0.4) 09/25/24 18:15
AST 30 U/L (14-36) 09/28/24 06:11
ALT 41 U/L (0-35) H 09/28/24 06:11
Alkaline Phosphatase 99 U/L (38-126) 09/28/24 06:11
Total Protein 6.0 g/dl (6.3-8.2) L 09/28/24 06:11
Albumin 3.5 g/dl (3.5-5.0) 09/28/24 06:11
Physical Exam
-
Gen: NAD
Abd: soft, obese, tender in RUQ, no diffuse peritonitis, prior lower abdominal incisions well healed
Patient has a dorman catheter: No
Patient has a central line: No
--- NOTE | 2024-09-29 07:46 | W.SUR.PREOP ---
Pre-Operative Surgical Note
-
I have examined this patient prior to the performance of the scheduled procedure.
The patient's condition is unchanged from the time of the current History and
Physical and the patient is able to undergo the scheduled procedure.
[2024-09-29 07:59] LABS: Hematocrit 34.7 % (37.0-47.0); Hemoglobin 12.0 g/dL (12.0-16.0); Mean Corp Hgb Conc. 34.6 g/dL (33.0-37.0); Mean Corpuscular Volume 108.1 fL (81.0-99.0); Nucleated Red Blood Cells % 0 %; Platelet Count 244 10^3/uL (130-400); Red Cell Dist. Width 13.9 % (11.5-14.5)
[2024-09-29] MEDS: NOVOLOG FLEXPEN-MODERATE RESISTANCE SC ×2 (08:00→11:39)
[2024-09-29 08:13] LABS: ALT (SGPT) 73 U/L (0-35); AST (SGOT) 60 U/L (14-36); Albumin 3.5 g/dl (3.5-5.0); Alkaline Phosphatase 230 U/L (38-126); Blood Urea Nitrogen 17 mg/dl (7-17); Calcium 8.9 mg/dl (8.4-10.2); Carbon Dioxide 29 mmol/L (22-30); Chloride 105 mmol/L (98-107); Estimated Creatinine Clearance 82 ml/min; Glucose 130 mg/dl (70-99); Potassium 4.7 mmol/L (3.5-5.1); Sodium 140 mmol/L (135-145); Total Protein 5.9 g/dl (6.3-8.2); eGFR > 60.00
[2024-09-29] MEDS: SYMBICORT 80/4.5 MCG INHALER 2 PUFF INH ×2 (08:13→19:49)
[2024-09-29] MEDS: MIRALAX 17 GRAMS PO ×2 (08:33→20:04)
[2024-09-29] MEDS: THERAGRAN 1 TABLET PO (08:33)
[2024-09-29] MEDS: THEO DUR 300 MG PO (08:33)
[2024-09-29] MEDS: VALTREX 1000 MG PO ×2 (08:34→20:04)
[2024-09-29] MEDS: PROTONIX 40 MG PO (08:34)
[2024-09-29] MEDS: NORVASC 5 MG PO (08:34)
[2024-09-29] MEDS: FARXIGA 10 MG PO (08:34)
[2024-09-29] MEDS: ZYLOPRIM 300 MG PO (08:34)
[2024-09-29] MEDS: PROZAC 20 MG PO (08:34)
[2024-09-29] MEDS: ZETIA 10 MG PO (08:34)
[2024-09-29] MEDS: MYCOSTATIN ORAL SUSPENSION PO ×4 (08:35→22:34)
--- NOTE | 2024-09-29 10:18 | PN.CDI ---
CDI
- -
CDI:
Physician Documentation Request
Admit Date: 09/25/24 20:13
Dear Doctor,
Please review the following and provide your response in the progress notes.
Clinical Indicators:
- 09/25 ER Physician 'the patient is chronically on oxygen therapy at two liters per minute'
- 09/28 PN 'Hx hypoxic hypercarbic respiratory failure requiring intubation for LLL PNA 01/24'
- 'COPD/asthma'
- 2-4L O2, SpO2 > 92%
Please clarify which of the following accurately represents the patient's respiratory status:
Chronic hypoxic respiratory failure
Chronic hypercarbic respiratory failure
Chronic hypoxic and hypercarbic respiratory failure
Other (please specify)
Use of terms such as suspected, likely, concern for, or probable (associated with a specific diagnosis that is being evaluated, monitored, or treated as if it exists) are acceptable and can be coded in the inpatient setting, when documented at the
time of discharge.
Thank you,
Silvino Harris RN
CDI Specialist
Please use your independent medical judgment in providing your response.
[2024-09-29 11:39] LABS: Glucose - Point of Care 137 mg/dl (70-99)
--- NOTE | 2024-09-29 12:37 | W.PN.GI.CBS2 ---
Addendum entered and electronically signed by Shakila Wolf DO 09/29/24 17:08:
Patient is currently in the OR/PACU status postcholecystectomy with a negative IOC
Will check on her tomorrow
Original Note:
Today's Communication / Plan
-
for bobbi today with cholangiogram await results
s/p stool 09/28 after enema
trend LFT's
cont Miralax BID -- will need bowel regiment on discharge
cont PPI
cont abx
Assessment / Plan
-
64-year-old female with past medical history of Schizophrenia, chronic CHF with preserved EF, mild aortic stenosis, bipolar disorder, borderline personality disorder, diabetes, hypertension, hypothyroidism, COPD, asthma, obstructive sleep apnea on
CPAP, GERD, anemia chronic disease, iron deficiency, pneumonia, hypoxic hypercarbic respiratory failure, rectal prolapse repair presents to the emergency room with abdominal pain and no bowel movement for 5 days. He also had intermittent nausea.
We are asked to evaluate for constipation. Patient had BM on 09/26/24 without improvement in discomfort. Imaging Suggesting acute cholecystitis. Leukocytosis and transaminases improving with addition of antibiotics. Pt for bobbi 09/29.
Impression:
Abd pain likely secondary to acute cholecystitis for bobbi 09/29
Chronic constipation
thrush on nystatin
macrocytosis
other med problems:
Schizophrenia, chronic CHF with preserved EF, mild aortic stenosis, bipolar disorder, borderline personality disorder, diabetes, hypertension, hypothyroidism, COPD, asthma, obstructive sleep apnea on CPAP, GERD, anemia chronic disease, iron
deficiency, pneumonia, hypoxic hypercarbic respiratory failure, rectal prolapse repair
Plan:
for bobbi today with cholangiogram await results
s/p stool 09/28 after enema
trend LFT's
cont Miralax BID -- will need bowel regiment on discharge
cont PPI
cont abx
Subjective
Subjective
Date of Service: September 29, 2024
09/28 brown stool, NPO for lap bobbi today
Objective
Data Reviewed
Laboratory Data:
Laboratory Results
09/29/24 06:02
09/29/24 06:02
Laboratory Results
Magnesium Cancelled 09/25/24 13:27
Total Bilirubin 0.6 mg/dl (0.2-1.3) 09/29/24 06:02
AST 60 U/L (14-36) H 09/29/24 06:02
ALT 73 U/L (0-35) H 09/29/24 06:02
Alkaline Phosphatase 230 U/L (38-126) H 09/29/24 06:02
Lipase 123 U/L (23-300) 09/25/24 13:27
Vital Signs and I&O:
Vital Signs
Temp Pulse Resp BP Pulse Ox
98.0 F 79 18 134/70 94
09/29/24 07:46 09/29/24 07:46 09/29/24 07:46 09/29/24 07:46 09/29/24 10:54
I&O
09/28/24 09/29/24 09/30/24
06:59 06:59 06:59
Intake Total 1640 / 1640 920 / 920
Output Total 1340 / 1340 1875 / 1875
Balance 300 / 300 -955 / -955
Physical Exam
Physical Exam
HEENT: Anicteric, Moist mucous membranes and Other (whitish debris on tongue )
Cardiology: Normal Sinus Rhythm
Pulmonary: Clear
GI: Soft, Non Distended and Tender (mild )
Extremities: No Edema
Neuro: Non Focal
--- NOTE | 2024-09-29 14:00 | W.PN.UPDATE ---
Update Note
Progress Note Update
Seen and examined by me independently in collaboration with the medical radiation dosimetrist.
Lab data and imaging data reviewed.
Addendum as below :
Patient still with abdominal pain pointing towards right upper quadrant. She has focal tenderness in the right upper quadrant with Murillo sign. Clinical and radiological concern of acute acalculous cholecystitis-going to OR today. Continue with
IV ceftriaxone in meantime.
Appreciate GI input with regards to bowel regimen which would be continued after surgery.
She has history of COPD and chronic hypoxic respiratory insufficiency. Clinically without any reactive airways. Chest sounded clear to me. Chest x-ray shows COPD. Right lower lobe normality noted-clinically not acting like pneumonia. No
prodrome of fever, sore throat. She does have chronic cough which is not productive. White count normal. Hold on antibiotics. She is already on ceftriaxone for further GI coverage.
Patient without chest pain or palpitation. EKG showed normal sinus rhythm with no acute ST-T changes compared to normal 2023. Echo from normal 2023 shows EF of 60 to 65% with mild aortic stenosis. Difficult assess functional status as she is in a
intermediate. She started clinical risk factors of diabetes but no chronic kidney disease. With this data she is at acceptable risk for surgery which she needs urgently. Proceed as planned.
Total time spent on today's encounter was 52 minutes which included time spent in counseling the patient/family regarding diagnosis and treatment plan as listed above, goals of care, and symptom management. Case was discussed with nursing staff,
specialists, and care coordinators/case management. All labs and imaging personally reviewed by me. Remainder the time spent in detailed review of previous records, lab data, imaging, and other medical provider documentation.
--- NOTE | 2024-09-29 16:20 | CM ---
Pt on oxygen 4 liters NC via Pox 94%. Home oxygen with [employer] .
To OR for Mary valdovinos.
Will need PT OT orders written after surgery.
Requested PT OT eval from when appropriate.
Lives prison at [facility] Contact Mirian Tavarez [employer]ane P[employer]her [phone] to review PT evals
PLAN On going discharge planning
--- NOTE | 2024-09-29 16:26 | W.IMMPOSTOP ---
Surgical Immed Post Op Note
-
Primary Surgeon: Marco A
Assisting Surgeon: ERIN Gillis
Pre-op Diagnosis: Acute on chronic cholecystitis
Post-op Diagnosis: Acute on chronic cholecystitis
Procedure Performed: Laparoscopic cholecystectomy with IOC, modifier 22 for obesity and fatty liver
Anesthesia Type: General
Specimen / Cultures:
1. Gallbladder
Estimated Blood Loss: 7 cc
Complications: None
Operative Findings:
1. Severely inflamed GB with acute on chronic dense scarring from mid GB to cystic duct, purulence and small black stones within GB
2. Critical view
3. IOC limited, but patent cystic into CBD appreciated
4. Artery taken with clips, duct with lockwood load stapler
[2024-09-29 17:28] LABS: Glucose - Point of Care 191 mg/dl (70-99)
[2024-09-29] MEDS: DILAUDID 0.5 MG IV (17:56)
[2024-09-29] MEDS: NORMOSOL-R/PLASMALYTE-A 1000 IV (18:00)
[2024-09-29] MEDS: STERILE WATER FOR INJECTION 10 ML IV (18:24)
[2024-09-29] MEDS: ROCEPHIN 1000 MG IV (18:24)
[2024-09-29] MEDS: LOVENOX 40 MG SC (20:03)
[2024-09-29 20:37] LABS: Glucose - Point of Care 181 mg/dl (70-99)
[2024-09-29] MEDS: NOVOLOG FLEXPEN-MODERATE RESISTANCE 1 UNITS SC (20:45)
[2024-09-29] MEDS: KLONOPIN 1.5 MG PO (22:51)
[2024-09-29] MEDS: MELATONIN 5 MG PO (22:51)
[2024-09-29] MEDS: ZYPREXA 15 MG PO (22:51)
[2024-09-29] MEDS: DEPAKOTE ER (24 HR RELEASE) 1000 MG PO (22:52)
[2024-09-30] MEDS: FLAGYL 500 MG 100 IV ×3 (00:35→17:01)
[2024-09-30 03:15] VITALS: BP 126/74
[2024-09-30] MEDS: SYNTHROID 100 MCG PO (05:52)
[2024-09-30 06:00] VITALS: BMI 37.5
[2024-09-30 06:21] LABS: Hematocrit 36.3 % (37.0-47.0); Hemoglobin 12.1 g/dL (12.0-16.0); Mean Corp Hgb Conc. 33.3 g/dL (33.0-37.0); Mean Corpuscular Volume 107.4 fL (81.0-99.0); Nucleated Red Blood Cells % 0 %; Platelet Count 291 10^3/uL (130-400); Red Cell Dist. Width 13.9 % (11.5-14.5)
--- NOTE | 2024-09-30 06:46 | W.PN.HOSP.TC ---
Today's Communication/Plan
-
cbc
cmp
I/O monitor.
Assessment / Plan
Assessment / Plan
64 yr old F with constipation k/h/o hypoxic hypercarbic respiratory failure
# Constipation:
-patient is taking Olanzapine, Amlodipine, theophylline, loperamide 2 mg might be the cause for chronic constipation.
CT Abdomen on 09/25:
1.SEVERE CONSTIPATION with severe distention of the ascending and transverse colon with a large amount of fecal material.
2. Previous sigmoidectomy and appendectomy.
-Continue IV ceftriaxone 1g , Flagyl 500 mg
-Patient had prior colonic resection and does not remember having a follow-up or recent colonoscopy.
Abdomen X ray (09/28):
There is a nonobstructive bowel gas pattern. There is moderate fecal material throughout the colon. There are surgical clips in the pelvis.
Chest x ray (09/29) :
-There are coarse interstitial markings diffusely which suggests changes of COPD.
-In addition there is more focal airspace disease in the right lower lobe. This may be scarring as patient had previous right lower lobe pneumonia, although acute pneumonia is difficult to exclude completely
GIT consultation includes: Bowel regimen, and advised to stop narcotics painkiller could be the cause suspect likely chronic constipation.
#Status post laparoscopy cholecystectomy :
-Intra-op findings: severely inflamed gallbladder with acute on chronic dense scarring, purulence and small black stones within the gallbladder all suggestive of acute on chronic calculus cholecystitis.
-On POST OP DAY 1- patient doesn't has a concern for abdominal pain, nausea, vomiting.
-Patient on 5th day of Ceftriaxone 1000mg to be continued for 4 more days.
# COPD/asthma�no acute exacerbation
#Chronic hypercarbic respiratory failure Pt is on 4 L oxygen nasal cannula
-Continue albuterol as needed
-Continue theophylline 300 mg p.o. daily
#CIELO on CPAP
Hx hypoxic hypercarbic respiratory failure requiring intubation for LLL PNA 11/16 /24 extubation 02/04/2024
#Chronic CHF preserved EF
Mild aortic stenosis
I/O, daily weights
-continue Farxiga 10 mg daily
#Schizophrenia
Bipolar disorder with borderline personality disorder
- Continue clonazepam 1.5 mg at bedtime, continue divalproex 1000 mg at bedtime , continue Prozac 20 mg daily
- Continue lorazepam 2 mg p.o. every 8 hours as needed anxiety
- Continue olanzapine 15 mg p.o. at bedtime and olanzapine 5 mg p.o. every 12 hours as needed agitation
# DM2/steroid-induced hyperglycemia
- Currently, NPO, Will start Dextrose containing fluids
- Can continue lower dose home insulin
- Accucchks bg 140-180
- Hold metformin in off chance if she needs an inpatient contrast study
# HTN
-Continue amlodipine 5 mg daily with hold parameters
#HLD
-Continue Zetia 10 mg daily, Lipitor 20 mg at bedtime
#Hypothyroidism
-Continue levothyroxine 100 mcg p.o. daily
#GERD
-Protonix 40 mg daily
#Chronic herpes virus
-Continue valacyclovir 1000 mg p.o. twice daily
Class II obesity�BMI 37.4
Dietary/lifestyle modification
#Oral thrush likely secondary to corticosteroid inhaler
-pt is not willing to take Nystatin swish and spit
-Recommended patient rinse mouth out after using inhaler
- mucinex syrup ordered for the cough.
DVT prophylaxis: Lovenax sc
CODE: FULL
Anticipated Discharge: 24 - 48 hours
Subjective/Interval History
-
Date of Service: September 30, 2024
Patient doesnt experience nausea, vomiting, abdominal pain, dysuria.She has an intermittent cough which is not associated with fever, shortness of breath.
She is on nasal cannula with oxygen flow of 2 L today.
Objective Data
-
Labs:
Laboratory Results
09/30/24 05:33
09/30/24 05:33
Laboratory Results
Total Bilirubin 0.4 mg/dl (0.2-1.3) 09/30/24 05:33
AST 36 U/L (14-36) 09/30/24 05:33
ALT 55 U/L (0-35) H 09/30/24 05:33
Alkaline Phosphatase 203 U/L (38-126) H 09/30/24 05:33
Lipase 123 U/L (23-300) 09/25/24 13:27
Vital Signs:
Vital Signs
Temp Pulse Resp BP Pulse Ox
98.5 F 95 17 126/74 95
09/30/24 03:15 09/30/24 03:15 09/30/24 03:15 09/30/24 03:15 09/30/24 03:15
I&O
09/28/24 09/29/24 09/30/24
06:59 06:59 06:59
Intake Total 1640 / 1640 920 / 920 150 / 150
Output Total 1340 / 1340 1875 / 1875 450 / 450
Balance 300 / 300 -955 / -955 -300 / -300
Review of Systems
-
History Source: Patient
EENT: Reports No Symptoms Reported
Respiratory: Reports Cough
Cardiac: Reports No Symptoms
Abdomen/GI: Reports No Symptoms
Genitourinary: Reports No Symptoms
Musculoskeletal: Reports No Symptoms
Skin: Reports No Symptoms
Neuro: Reports No Symptoms
Endocrine: Reports No Symptoms
Hematologic / Lymphatic: Reports No Symptoms
Allergy / Immunology: Reports No Symptoms
Physical Exam
-
General: No Apparent Distress
HEENT: Moist Mucous Membranes
Respiratory: Clear to Auscultation
Cardiac: Regular Rhythm and S1/S2
GI: Soft, Nontender, Nondistended and Normal Bowel Sounds
Genito-urinary: No Costovertebral Tender
Musculoskeletal: No Clubbing
Skin: Warm
Neuro: AO x 3
Psych: Calm
[2024-09-30 06:52] LABS: ALT (SGPT) 55 U/L (0-35); AST (SGOT) 36 U/L (14-36); Albumin 3.7 g/dl (3.5-5.0); Alkaline Phosphatase 203 U/L (38-126); Blood Urea Nitrogen 25 mg/dl (7-17); Calcium 9.2 mg/dl (8.4-10.2); Carbon Dioxide 26 mmol/L (22-30); Chloride 106 mmol/L (98-107); Estimated Creatinine Clearance 72 ml/min; Glucose 174 mg/dl (70-99); Potassium 4.6 mmol/L (3.5-5.1); Sodium 141 mmol/L (135-145); Total Protein 6.2 g/dl (6.3-8.2); eGFR > 60.00
[2024-09-30 07:29] VITALS: BP 152/85
[2024-09-30] MEDS: SYMBICORT 80/4.5 MCG INHALER 2 PUFF INH ×2 (07:52→19:30)
[2024-09-30 07:58] LABS: Glucose - Point of Care 158 mg/dl (70-99)
[2024-09-30] MEDS: NOVOLOG FLEXPEN-MODERATE RESISTANCE 1 UNITS SC (08:18)
[2024-09-30] MEDS: NORVASC 5 MG PO (08:20)
[2024-09-30] MEDS: ZYLOPRIM 300 MG PO (08:20)
[2024-09-30] MEDS: MIRALAX 17 GRAMS PO (08:20)
[2024-09-30] MEDS: VALTREX 1000 MG PO ×2 (08:20→19:30)
[2024-09-30] MEDS: PROTONIX 40 MG PO (08:20)
[2024-09-30] MEDS: THERAGRAN 1 TABLET PO (08:20)
[2024-09-30] MEDS: ZETIA 10 MG PO (08:20)
[2024-09-30] MEDS: MYCOSTATIN ORAL SUSPENSION PO ×3 (08:21→17:02)
--- NOTE | 2024-09-30 08:48 | W.PN.GI.CBS2 ---
Addendum entered and electronically signed by Shakila Wolf DO 09/30/24 14:25:
Patient seen and examined independently of SALES DEPARTMENT CLERK. I agree with her note with my additions below
Patient has some minimal expected postop discomfort
LFTs are improving
The IOC was limited during the procedure however the LFTs are improving so not concerned about choledocholithiasis
We discussed a bowel regimen going forward. I agree with Lori with MiraLAX in the morning and senna every night.
GI will sign off. Please call with any questions
Original Note:
Today's Communication / Plan
-
s/p bobbi 09/29 IOC limited, but cystic duct into CBD appreciated per surgical notes
LFT's -- improving
minimal abdominal pain post-op
last stool 09/28 with enema but was note eating much
will change regiment to Miralax in AM and and senna at HS-- may need continued adjustment with diet advance-- give dulcolax every 3 days for now stools
cont PPI
cont abx
Assessment / Plan
-
64-year-old female with past medical history of Schizophrenia, chronic CHF with preserved EF, mild aortic stenosis, bipolar disorder, borderline personality disorder, diabetes, hypertension, hypothyroidism, COPD, asthma, obstructive sleep apnea on
CPAP, GERD, anemia chronic disease, iron deficiency, pneumonia, hypoxic hypercarbic respiratory failure, rectal prolapse repair presents to the emergency room with abdominal pain and no bowel movement for 5 days. He also had intermittent nausea.
We are asked to evaluate for constipation. Patient had BM on 09/26/24 without improvement in discomfort. Imaging Suggesting acute cholecystitis. Leukocytosis and transaminases improving with addition of antibiotics. Pt for bobbi 09/29.
Impression:
Abd pain likely secondary to acute cholecystitis s/p bobbi 09/29-- pain improving
Chronic constipation
thrush on nystatin
macrocytosis
other med problems:
Schizophrenia, chronic CHF with preserved EF, mild aortic stenosis, bipolar disorder, borderline personality disorder, diabetes, hypertension, hypothyroidism, COPD, asthma, obstructive sleep apnea on CPAP, GERD, anemia chronic disease, iron
deficiency, pneumonia, hypoxic hypercarbic respiratory failure, rectal prolapse repair
Plan:
s/p bobbi 09/29 IOC limited, but cystic duct into CBD appreciated per surgical notes
LFT's -- improving
minimal abdominal pain post-op
last stool 09/28 with enema but was note eating much
will change regiment to Miralax in AM and and senna at HS-- may need continued adjustment with diet advance-- give dulcolax every 3 days for now stools
cont PPI
cont abx
Subjective
Subjective
Date of Service: September 30, 2024
Pt feeling well post bobbi, tolerating ADA diet 09/28 brown stools
Objective
Data Reviewed
Laboratory Data:
Laboratory Results
09/30/24 05:33
09/30/24 05:33
Laboratory Results
Magnesium Cancelled 09/25/24 13:27
Total Bilirubin 0.4 mg/dl (0.2-1.3) 09/30/24 05:33
AST 36 U/L (14-36) 09/30/24 05:33
ALT 55 U/L (0-35) H 09/30/24 05:33
Alkaline Phosphatase 203 U/L (38-126) H 09/30/24 05:33
Lipase 123 U/L (23-300) 09/25/24 13:27
Vital Signs and I&O:
Vital Signs
Temp Pulse Resp BP Pulse Ox
98.4 F 91 16 152/85 94
09/30/24 07:29 09/30/24 07:53 09/30/24 07:53 09/30/24 07:29 09/30/24 07:53
I&O
09/29/24 09/30/24 10/01/24
06:59 06:59 06:59
Intake Total 920 / 920 150 / 150
Output Total 5 / 1874 450 / 450
Balance -955 / -955 -300 / -300
Physical Exam
Physical Exam
HEENT: Anicteric and Moist mucous membranes
Cardiology: Normal Sinus Rhythm
Pulmonary: Clear
GI: Soft, Non Distended and Non Tender (minimal post bobbi)
Extremities: No Edema
Neuro: Non Focal
[2024-09-30] MEDS: PROZAC 20 MG PO (09:02)
[2024-09-30 11:30] VITALS: BP 141/72
--- NOTE | 2024-09-30 11:50 | W.PN.GS2 ---
Today's Communication / Plan
-
-- Diabetic diet
-- Abx: Ceftriaxone and Flagyl, would plan for 4 days post-op abx (OK to switch to PO for outpatient)
-- DC instructions updated
-- F/u in 2 weeks
Assessment / Plan
-
64 yo female COPD, intubated January 2024 for hypoxic hypercarbic respiratory failure, CHF, CIELO with cpap, rectal prolapse repair with sigmoidectomy, and appendectomy who [facility] her [facility] with reported history of no BM x5 days with
generalized abdominal pain and intermittent nausea.
POD#1 s/p laparoscopic cholecystectomy with IOC
CT Abdomen/Pelvis: Distended GB, wall thickening and edema, constipation
US Abdomen: Somewhat prominent size gallbladder with minimal wall thickening but no stones. Positive sonographic Murillo's sign detected on US; however, patient tender throughout the abdomen on exam. Low suspicion for cholecystitis.
HIDA: No filling of GB
AVSS on sup O2
Repeat labs with normal WBC, stable Hb, normal electrolytes and renal function, normal bilirubin and down trending LFTs and ALP
Recovering well. No postoperative concerns. Would plan for 4 days postoperative antibiotics given degree of cholecystitis.
Plan:
-- Diabetic diet
-- Pain control: Tylenol, Toradol, Tramadol
-- Abx: Ceftriaxone and Flagyl, would plan for 4 days post-op abx (OK to switch to PO for outpatient)
-- DC instructions updated
-- F/u in 2 weeks
Subjective Data
-
Date of Service: September 30, 2024
No major complaints. Some abdominal soreness, overall well-controlled. Tolerating diet without nausea or vomiting. No bowel movement. No fevers. Voiding.
Objective Data
-
Intake and Output
09/29/24 09/30/24 10/01/24
06:59 06:59 06:59
Intake Total 920 / 920 150 / 150
Output Total 1875 / 1875 450 / 450
Balance -955 / -955 -300 / -300
Intake:
Oral fluids 720 / 720
IV fluids (Total) 150 / 150
Normosol 150 / 150
IV piggybacks 200 / 200
Output:
Urine, Voided 1874 450 / 450
Other:
Number of approximated MODERATE 1 3 1
amounts of urine
Vital Signs
Temp Pulse Resp BP Pulse Ox
98.8 F 93 20 141/72 92
09/30/24 11:30 09/30/24 11:30 09/30/24 11:30 09/30/24 11:30 09/30/24 11:30
Lab Results
09/30/24 05:33
09/30/24 05:33
Calcium 9.2 mg/dl (8.4-10.2) 09/30/24 05:33
Magnesium Cancelled 09/25/24 13:27
Total Bilirubin 0.4 mg/dl (0.2-1.3) 09/30/24 05:33
Direct Bilirubin 0.4 mg/dl (0.0-0.4) 09/25/24 18:15
AST 36 U/L (14-36) 09/30/24 05:33
ALT 55 U/L (0-35) H 09/30/24 05:33
Alkaline Phosphatase 203 U/L (38-126) H 09/30/24 05:33
Total Protein 6.2 g/dl (6.3-8.2) L 09/30/24 05:33
Albumin 3.7 g/dl (3.5-5.0) 09/30/24 05:33
Physical Exam
-
Gen: NAD
Abd: soft, mild tenderness, ND, non-peritoneal, incisions c/d/i - no erythema, ecchymosis or drainage
Patient has a dorman catheter: No
Patient has a central line: No
[2024-09-30 11:54] LABS: Glucose - Point of Care 232 mg/dl (70-99)
[2024-09-30] MEDS: NOVOLOG FLEXPEN-MODERATE RESISTANCE 3 UNITS SC (11:58)
[2024-09-30] MEDS: ROBITUSSIN 100 MG PO ×3 (12:05→21:19)
[2024-09-30] MEDS: TORADOL 10 MG IV (14:17)
--- NOTE | 2024-09-30 15:16 | W.PN.UPDATE ---
Update Note
Progress Note Update
Seen and examined by me independently in collaboration with the medical research associate.
Lab data and imaging data reviewed.
Addendum as below :
Status post laparoscopy cholecystectomy which showed severely inflamed gallbladder with acute on chronic dense scarring, purulence and small black stones within the gallbladder all suggestive of acute on chronic calculus cholecystitis.
Today she has no nausea vomiting and abdominal pain is improved.
Tolerating diet.
Continue with antibiotics for 4 more days postoperatively per surgery.
Resume all her home oral medication.
PT OT eval and start discharge process.
She denies any shortness of breath and chest pain. Chest is clear. Wean down oxygen to her home dose of 2 L and follow-up.
[2024-09-30 15:20] VITALS: BP 152/69
[2024-09-30] MEDS: STERILE WATER FOR INJECTION 10 ML IV (17:01)
[2024-09-30] MEDS: LOVENOX 40 MG SC (17:01)
[2024-09-30] MEDS: ROCEPHIN 1000 MG IV (17:02)
[2024-09-30 17:23] LABS: Glucose - Point of Care 229 mg/dl (70-99)
[2024-09-30] MEDS: NOVOLOG FLEXPEN-MODERATE RESISTANCE 2 UNITS SC (17:29)
[2024-09-30] MEDS: ZYPREXA 15 MG PO (21:18)
[2024-09-30] MEDS: LANTUS 0.08 UNITS SC (21:18)
[2024-09-30] MEDS: DEPAKOTE ER (24 HR RELEASE) 1000 MG PO (21:18)
[2024-09-30] MEDS: KLONOPIN 1.5 MG PO (21:18)
[2024-09-30] MEDS: MYCOSTATIN ORAL SUSPENSION 5 ML PO (21:19)
[2024-09-30] MEDS: MELATONIN 5 MG PO (21:19)
[2024-09-30] MEDS: SENOKOT 17.2 MG PO (21:19)
[2024-09-30 22:27] VITALS: PULSE 85
[2024-09-30 23:00] VITALS: BP 114/67
[2024-10-01] MEDS: FLAGYL 500 MG 100 IV ×3 (00:02→16:18)
[2024-10-01 00:12] LABS: Glucose - Point of Care 254 mg/dl (70-99)
[2024-10-01] MEDS: TORADOL 10 MG IV (05:15)
[2024-10-01] MEDS: SYNTHROID 100 MCG PO (05:45)
--- NOTE | 2024-10-01 05:58 | W.PN.HOSP.TC ---
Addendum entered and electronically signed by Hesham Thayer MD 10/01/24 13:20:
Seen and examined by me independently in collaboration with the medical advisor.
Lab data and imaging data reviewed.
Addendum as below :
Patient denies any abdominal pain today. Tolerating diet. Abdomen is soft.
General surgery input noted-stable for discharge from the standpoint.
Denies any shortness of breath. Stable on her home O2. Chest was clear.
Plan for DC skilled nursing today as she deemed medically stable. Finish the antibiotics course with Augmentin for 4 more days.
Total of discharge 35 minutes
Original Note:
Today's Communication/Plan
-
Patient is discharging today and follow up with PCP in future.
Assessment / Plan
Assessment / Plan
64 yr old F with constipation k/h/o hypoxic hypercarbic respiratory failure on s/p cholecystecomy (DAY 2)
#Status post laparoscopy cholecystectomy :
-Intra-op findings: severely inflamed gallbladder with acute on chronic dense scarring, purulence and small black stones within the gallbladder all suggestive of acute on chronic calculus cholecystitis.
-On POST OP DAY 2- patient doesn't has a concern for nausea, vomiting.
-Patient on 5th day of Ceftriaxone 1000mg to be continued for 4 more days.
# Constipation:
-patient is taking Olanzapine, Amlodipine, theophylline, loperamide 2 mg might be the cause for chronic constipation.
CT Abdomen on 09/25:
1.SEVERE CONSTIPATION with severe distention of the ascending and transverse colon with a large amount of fecal material.
2. Previous sigmoidectomy and appendectomy.
-Continue IV ceftriaxone 1g DAY 6 , Flagyl 500 mg
-Patient had prior colonic resection and does not remember having a follow-up or recent colonoscopy.
Abdomen X ray (09/28):
There is a nonobstructive bowel gas pattern. There is moderate fecal material throughout the colon. There are surgical clips in the pelvis.
Chest x ray (09/29) :
-There are coarse interstitial markings diffusely which suggests changes of COPD.
-In addition there is more focal airspace disease in the right lower lobe. This may be scarring as patient had previous right lower lobe pneumonia, although acute pneumonia is difficult to exclude completely
GIT consultation includes: Bowel regimen, and advised to stop narcotics painkiller could be the cause suspect likely chronic constipation.
# COPD/asthma�no acute exacerbation
#Chronic hypercarbic respiratory failure Pt is on 4 L oxygen nasal cannula
-Continue albuterol as needed
-Continue theophylline 300 mg p.o. daily
-Mucinex syrup- dry cough.
#CIELO on CPAP
Hx hypoxic hypercarbic respiratory failure requiring intubation for LLL PNA 01/24 extubation 02/04/2024
#Chronic CHF preserved EF
Mild aortic stenosis
I/O, daily weights
-continue Farxiga 10 mg daily
#Schizophrenia
Bipolar disorder with borderline personality disorder
- Continue clonazepam 1.5 mg at bedtime, continue divalproex 1000 mg at bedtime , continue Prozac 20 mg daily
- Continue lorazepam 2 mg p.o. every 8 hours as needed anxiety
- Continue olanzapine 15 mg p.o. at bedtime and olanzapine 5 mg p.o. every 12 hours as needed agitation.
# DM2/steroid-induced hyperglycemia
- Currently, NPO, Will start Dextrose containing fluids
- Can continue lower dose home insulin
- Accucchks bg 140-180
- Hold metformin in off chance if she needs an inpatient contrast study
# HTN
-Continue amlodipine 5 mg daily with hold parameters
#HLD
-Continue Zetia 10 mg daily, Lipitor 20 mg at bedtime
#Hypothyroidism
-Continue levothyroxine 100 mcg p.o. daily
#GERD
-Protonix 40 mg daily
#Chronic herpes virus
-Continue valacyclovir 1000 mg p.o. twice daily
Class II obesity�BMI 37.4
Dietary/lifestyle modification
DVT prophylaxis: Lovenax sc
CODE: FULL
Anticipated Discharge: Today
Subjective/Interval History
-
Date of Service: October 01, 2024
Patient has a concern for right side upper abdominal pain while on walking, passed flatus today morning. not associated with fever, nausea, vomiting, dizziness, dysuria.
She admits to have dry cough which she used to have at home before the admission.
Objective Data
-
Labs:
10/01/24 05:29
10/01/24 05:29
Laboratory Results
Total Bilirubin 0.3 mg/dl (0.2-1.3) 10/01/24 05:29
AST 20 U/L (14-36) 10/01/24 05:29
ALT 36 U/L (0-35) H 10/01/24 05:29
Alkaline Phosphatase 162 U/L (38-126) H 10/01/24 05:29
Lipase 123 U/L (23-300) 09/25/24 13:27
Laboratory Results
Vital Signs:
Vital Signs
Temp Pulse Resp BP Pulse Ox
99.1 F 87 18 114/67 92
09/30/24 23:00 09/30/24 23:00 09/30/24 23:00 09/30/24 23:00 09/30/24 23:00
I&O
09/29/24 09/30/24 10/01/24
06:59 06:59 06:59
Intake Total 920 / 920 150 / 150 560 / 560
Output Total 1875 / 1875 450 / 450
Balance -955 / -955 -300 / -300 560 / 560
Review of Systems
-
History Source: Patient
Constitutional: Reports No Symptoms
Respiratory: Reports Cough (dry cough on and off with no triggering factor. )
Cardiac: Reports No Symptoms
Abdomen/GI: Reports Abdominal Pain (right side upper abdomen. )
Breast: Reports No Symptoms
Genitourinary: Reports No Symptoms
Musculoskeletal: Reports No Symptoms
Skin: Reports No Symptoms
Neuro: Reports No Symptoms
Endocrine: Reports No Symptoms
Hematologic / Lymphatic: Reports No Symptoms
Allergy / Immunology: Reports No Symptoms
Physical Exam
-
General: No Apparent Distress
Respiratory: Clear to Auscultation
Cardiac: Regular Rhythm and S1/S2
GI: Soft, Nontender, Nondistended and Normal Bowel Sounds
Genito-urinary: No Costovertebral Tender
Musculoskeletal: No Clubbing
Skin: Warm
Neuro: AO x 3
Hematologic / Lymphatic: No Lymphadenopathy
Psych: Calm
[2024-10-01 06:00] VITALS: BMI 37.6
[2024-10-01 06:18] LABS: Hematocrit 33.1 % (37.0-47.0); Hemoglobin 11.0 g/dL (12.0-16.0); Mean Corp Hgb Conc. 33.2 g/dL (33.0-37.0); Mean Corpuscular Volume 108.5 fL (81.0-99.0); Platelet Count 288 10^3/uL (130-400); Red Cell Dist. Width 14.4 % (11.5-14.5)
[2024-10-01 06:40] LABS: ALT (SGPT) 36 U/L (0-35); AST (SGOT) 20 U/L (14-36); Albumin 3.3 g/dl (3.5-5.0); Alkaline Phosphatase 162 U/L (38-126); Blood Urea Nitrogen 31 mg/dl (7-17); Calcium 8.8 mg/dl (8.4-10.2); Carbon Dioxide 28 mmol/L (22-30); Chloride 109 mmol/L (98-107); Estimated Creatinine Clearance 58 ml/min; Glucose 167 mg/dl (70-99); Potassium 4.6 mmol/L (3.5-5.1); Sodium 143 mmol/L (135-145); Total Protein 5.6 g/dl (6.3-8.2); eGFR > 60.00
[2024-10-01] MEDS: SYMBICORT 80/4.5 MCG INHALER 2 PUFF INH (07:22)
[2024-10-01 07:34] LABS: Glucose - Point of Care 176 mg/dl (70-99)
[2024-10-01 07:35] VITALS: BP 110/68
--- NOTE | 2024-10-01 07:46 | W.PN.UPDATE ---
Update Note
Progress Note Update
Sleeping comfortably. No issues reported per nursing. Tolerating a diet pain well-controlled.
Abdomen benign with incisions c/d/i
-- No changes from a general surgery perspective.
-- DC instructions updated
-- Discharge on antibiotics for total 4 days postoperative coverage
-- Follow-up in the office in 2 to 4 weeks
-- Call with questions or concerns
[2024-10-01] MEDS: NOVOLOG FLEXPEN-MODERATE RESISTANCE 1 UNITS SC ×2 (08:47→16:43)
[2024-10-01] MEDS: ZYLOPRIM 300 MG PO (08:48)
[2024-10-01] MEDS: PROTONIX 40 MG PO (08:48)
[2024-10-01] MEDS: THERAGRAN 1 TABLET PO (08:48)
[2024-10-01] MEDS: PROZAC 20 MG PO (08:48)
[2024-10-01] MEDS: ROBITUSSIN 100 MG PO ×2 (08:49→13:14)
[2024-10-01] MEDS: NORVASC 5 MG PO (08:49)
[2024-10-01] MEDS: FARXIGA 10 MG PO (08:50)
[2024-10-01] MEDS: MYCOSTATIN ORAL SUSPENSION PO ×2 (08:50→13:14)
[2024-10-01] MEDS: ZETIA 10 MG PO (08:50)
[2024-10-01] MEDS: THEO DUR 300 MG PO (08:50)
[2024-10-01] MEDS: VALTREX 1000 MG PO (08:51)
[2024-10-01] MEDS: MIRALAX 17 GRAMS PO (08:51)
--- NOTE | 2024-10-01 10:50 | VNURNOTE ---
Addendum entered by Gilda Yan RN 10/01/24 12:34:
Spoke w/Mirian Tavarez. She confirms that the pt can sign HH consents. She confirms that the patient has 02 at home ([facility]). Mirian will only be available until 1400 today, then will be on vacation. If needed after that time, call [facility]
nurses' main # [phone]- ask for Stefani or Kat. [facility] referral updated.
Original Note:
Home Health Liaison met with patient at bedside to discuss [facility] nurse/therapy, visits, schedule and homebound status. Patient is agreeable and understands that visits at home will be 2-3 x per week to assess and teach medical management.
Patient is aware that [facility] will contact them for start of care in 1-2 days after discharge from .
[facility] referral accepted in [facility].
[2024-10-01 11:28] LABS: Glucose - Point of Care 282 mg/dl (70-99)
[2024-10-01] MEDS: NOVOLOG FLEXPEN-MODERATE RESISTANCE 5 UNITS SC (11:37)
--- NOTE | 2024-10-01 13:48 | CM ---
Patient has been medically cleared for discharge to [facility] with [facility] RN, PT/OT skilled services. Ambulance transport being scheduled.
Nurse to Nurse Report # [phone]
[2024-10-01 15:10] VITALS: BP 117/73
[2024-10-01 16:36] LABS: Glucose - Point of Care 154 mg/dl (70-99)
--- NOTE | 2024-10-01 16:41 | W.DCSUMMARY ---
Discharge Summary
Discharge Data
Date of Admission: 09/25/24
Date of Discharge: 10/01/24
-
Pending Results: No
Additional Pending Results:
Discharging Physician : Dr Dieudonne Mendez
Dr Hesham Sanchez.
Disposition : [facility] ([facility])
Primary care physician : Dr Shimon Cleary
Principal Discharge diagnosis : Acute Cholecystitis
Chronic Discharge diagnosis :
# Constipation
# COPD/asthma�no acute exacerbation
#Chronic hypercarbic respiratory failure Pt is on 4 L oxygen nasal cannula
#CIELO on CPAP
#Chronic CHF preserved EF
#Schizophrenia
# DM2/steroid-induced hyperglycemia
# HTN
#HLD
#Hypothyroidism
#GERD
#Chronic herpes virus
Class II obesity�BMI 37.4
Hospital Course : On 09/25 64-year-old female residing in a [facility] facility, presented with generalized abdominal pain for five days. She described the pain severity as 10 out of 10. On examination, the abdomen was slightly distended and
tender. The patient had experienced loose stools, characterized as looser than her normal stool but not quite diarrhea, with approximately four to five bowel movements, as per staff observations. The patient denied having bowel movements over the
past five days despite reports of six bowel movements after receiving an enema. She also reported one episode of vomiting, describing it as yellow. The patient denied current difficulty in breathing. A rectal examination was performed, revealing
minimal stool present. GIT consultation included Bowel regimen, and advised to stop narcotics painkiller could be the cause suspect likely chronic constipation. CT imaging with significant stool burden/severe constipation which is the likely
etiology of her symptoms. Surgery consulted as CT with findings of a distended gallbladder, without significant wall thickening or surrounding inflammation. Mild transaminitis with normal bilirubin. Patient was on hold for Theophylline 300 mg,
Insulin Glargine, Farziga 10 mg for cholecystectomy. IV ceftriaxone 1g , Flagyl 500 mg was continued as a pre op prophylactic antibiotic regimen. On POST OP DAY 2- patient was stable with no concern for nausea, vomiting. Discharged the patient with
the advice for the follow up in future with PCP within a week.
Important imaging findings :
HIDA scan:
-Activity about the gallbladder and not within the gallbladder proper suggestive of possible acute cholecystitis unfortunately cannot be differentiated.
-Acalculous cholecystitis
Abdomen X ray (09/28):
There is a nonobstructive bowel gas pattern. There is moderate fecal material throughout the colon. There are surgical clips in the pelvis.
Procedure findings :
Laparoscopic Cholecystectomy:
1. Severely inflamed GB with acute on chronic dense scarring from mid GB to cystic duct, purulence and small black stones within GB
2. Critical view
3. IOC limited, but patent cystic into CBD appreciated
4. Artery taken with clips, duct with lockwood load stapler
Discharge Plan
-
Patient Disposition: Group Home/SNF
Discharge Diagnosis/Procedures: Acute calculous cholecystitis -Laparoscopic cholecystectomy with cholangiogram
Condition: Good
Diet: Low Fat and Diabetic, Carb Controlled
Additional Diets: If issues with bloating or diarrhea following low-fat diet
Activity: No strenuous activity
Additional Activity: No heavy lifting (>20 lbs) or strenuous activities for 2-3 weeks postoperatively
Driving Restrictions: No driving if too sore or taking narcotics
Bathing Restrictions: OK to Shower
Other Services: PT and OT
Wound Care: Keep incisions clean and dry. Glue will flake off in 2 to 3 weeks. Stitches will dissolve. Use ice to the abdomen to reduce any bruising or swelling.
Activity Restrictions/Additional Instructions:
Call for fevers (>100.5), nausea or vomiting, worsening abdominal pain, yellowing of the eyes or skin
Referrals:
Anthony Strickland MD [Active, Surgical] - in two to four weeks
Shimon Cleary DO [Family Provider, Family Practice]
Additional Discharge Medication Instructions: Follow up with PCP in future
- Stop Augmentin if you experiences rashes, itchy throat, anaphylaxis reaction, and start Benadryl.
- cephalexin 500mg capsule for 4 dyas
Metronidazole 500 mg 4 more days has to be continued.
Prescriptions:
New
cephalexin 500 mg capsule
500 mg PO QID Qty: 16 0RF
metronidazole 500 mg tablet
500 mg PO TID Qty: 12 0RF
Continued
metformin 1,000 MG tablet
1,000 mg PO BID
allopurinol 300 MG tablet
300 mg PO DAILY
cholecalciferol (vitamin D3) 1,000 UNITS tablet
1,000 units PO DAILY
ondansetron HCl 4 MG tablet
4 mg PO Q8HPRN PRN (Reason: nausea)
acetaminophen 325 MG tablet
650 mg PO Q6HPRN PRN (Reason: back pain)
olanzapine [Zyprexa] 10 mg Tablet
15 mg PO HS
Apidra SoloStar U-100 Insulin 100 unit/mL Insulin Pen
8 unit SC DAILY
fluoxetine [Prozac] 10 mg Capsule
20 mg PO DAILY
furosemide 40 MG tablet
40 mg PO DAILY
loperamide 2 mg Tablet
2 mg PO Q6HPRN PRN (Reason: diarrhea)
valacyclovir 500 mg Tablet
1,000 mg PO BID
benzonatate 100 mg Capsule
100 mg PO TIDPRN PRN (Reason: COUGH)
ezetimibe [Zetia] 10 mg Tablet
10 mg PO DAILY
insulin glargine [Lantus Solostar U-100 Insulin] 100 unit/mL (3 mL) Insulin Pen
21 unit SC DAILY
Baqsimi 3 mg/actuation [place],Non-Aerosol
3 mg INTRANASAL DAILYPRN PRN (Reason: severe hypoglycemia )
polyethylene glycol 3350 [Miralax] 17 gram powder in packet
17 g PO BIDPRN PRN (Reason: constipation)
docusate sodium 100 mg Capsule
100 mg PO BID
guaifenesin [Mucinex] 600 mg Tablet Extended Release 12hr
600 mg PO BID
magnesium hydroxide [Milk of Magnesia] 400 mg/5 mL Suspension
2,400 mg PO BIDPRN PRN (Reason: constipation)
albuterol sulfate 2.5 mg /3 mL (0.083 %) Solution For Nebulization
2.5 mg INHALATION R Q6HPRN PRN (Reason: sob)
lorazepam 2 mg Tablet
2 mg PO Q8HPRN PRN (Reason: anxeity)
benzoyl peroxide 5 % Cleanser
1 applic TOPICAL DAILY
clonazepam 1 mg tablet
1.5 mg PO HS
olanzapine 5 mg Tablet
5 mg PO [id number] PRN (Reason: Agitation)
amlodipine 5 mg Tablet
5 mg PO DAILY
pantoprazole 40 mg Tablet,Delayed Release (Dr/Ec)
40 mg PO DAILY
theophylline 300 mg Capsule,Extended Release 24hr
300 mg PO DAILY
ibuprofen [Advil] 200 mg Tablet
600 mg PO Q8HPRN PRN (Reason: severe pain)
atorvastatin [Lipitor] 20 mg Tablet
20 mg PO HS
dextromethorphan-guaifenesin [Guaiasorb DM] 10-100 mg/5 mL Liquid
10 ml PO Q6HPRN PRN (Reason: cough)
therapeutic multivitamin Tablet
1 tab PO DAILY
levothyroxine [Synthroid] 100 mcg Tablet
100 mcg PO DAILY
divalproex 500 mg Tablet Extended Release 24 Hr
1,000 mg PO HS
gabapentin 100 mg Capsule
100 mg PO TIDPRN PRN (Reason: mild pain)
alum-mag hydroxide-simeth [Iris-Lanta] 200-200-20 mg/5 mL Suspension
15 ml PO BIDPRN PRN (Reason: indigestion)
Apidra SoloStar U-100 Insulin 100 unit/mL Insulin Pen
9 sliding scale dose SC BID
Dulera 100-5 mcg/actuation Hfa Aerosol Inhaler
1 puff INHALATION R BID
dapagliflozin propanediol [Farxiga] 10 mg Tablet
10 mg PO DAILY
furosemide [Lasix] 20 mg tablet
40 mg PO DAILYPRN PRN (Reason: fluid)
melatonin 5 mg Tablet
5 mg PO HS Qty: 0 0RF
Discharge Orders:
Discharge Patient (As Directed); Ordered 10/01/24
Ordered By: Dieudonne Mendez
Discharge Date and Time
Discharge Date/Time: 10/01/24 17:30
Print Language: BENGALI
== END 2024-10-01 17:30 | disposition home health service (06) | DRG 418 ==
LOC: 2 SOUTH 20:13
PROVIDERS: Clinical Nurse Specialist Family Health; Hospitalist; Surgery; ADMITTING PHYSICIAN Internal Medicine; ATTENDING PHYSICIAN Internal Medicine; CONSULT PHYSICIAN Internal Medicine Gastroenterology; CONSULT PHYSICIAN Surgery; EMERGENCY PHYSICIAN Emergency Medicine; FAMILY PHYSICIAN Family Medicine
PROC: 5A09357 Assistance with Respiratory Ventilation, Less than 24 Consecutive Hours, Continuous Positive Airway Pressure (ICD-10-PCS; 2024-09-25)
PROC: 0FN44ZZ Release Gallbladder, Percutaneous Endoscopic Approach (ICD-10-PCS; 2024-09-29)
PROC: 0FT44ZZ Resection of Gallbladder, Percutaneous Endoscopic Approach (ICD-10-PCS; 2024-09-29)
PROC: BF131ZZ Fluoroscopy of Gallbladder and Bile Ducts using Low Osmolar Contrast (ICD-10-PCS; 2024-09-29)
DX: K80.12 Calculus of gallbladder with acute and chronic cholecystitis without obstruction (principal); B37.0 Candidal stomatitis; F20.89 Other schizophrenia; I50.32 Chronic diastolic (congestive) heart failure; J44.0 Chronic obstructive pulmonary disease with (acute) lower respiratory infection; K56.50 Intestinal adhesions [bands], unspecified as to partial versus complete obstruction; J96.12 Chronic respiratory failure with hypercapnia; I35.0 Nonrheumatic aortic (valve) stenosis; R62.50 Unspecified lack of expected normal physiological development in childhood; K59.00 Constipation, unspecified; E03.9 Hypothyroidism, unspecified; E78.00 Pure hypercholesterolemia, unspecified; D50.9 Iron deficiency anemia, unspecified; D63.8 Anemia in other chronic diseases classified elsewhere; G47.33 Obstructive sleep apnea (adult) (pediatric); K21.9 Gastro-esophageal reflux disease without esophagitis; E11.65 Type 2 diabetes mellitus with hyperglycemia; E66.812 Obesity, class 2; F60.3 Borderline personality disorder; E78.5 Hyperlipidemia, unspecified; B00.9 Herpesviral infection, unspecified; M51.369 Other intervertebral disc degeneration, lumbar region without mention of lumbar back pain or lower extremity pain; K82.8 Other specified diseases of gallbladder; E88.2 Lipomatosis, not elsewhere classified; I11.0 Hypertensive heart disease with heart failure; F31.9 Bipolar disorder, unspecified; N28.9 Disorder of kidney and ureter, unspecified; F41.9 Anxiety disorder, unspecified; K76.0 Fatty (change of) liver, not elsewhere classified; T49.0X5A Adverse effect of local antifungal, anti-infective and anti-inflammatory drugs, initial encounter; Y92.9 Unspecified place or not applicable; Z60.2 Problems related to living alone; Z99.81 Dependence on supplemental oxygen; Z88.0 Allergy status to penicillin; Z91.51 Personal history of suicidal behavior; Z90.49 Acquired absence of other specified parts of digestive tract; Z91.041 Radiographic dye allergy status; Z68.37 Body mass index [BMI] 37.0-37.9, adult; Z80.9 Family history of malignant neoplasm, unspecified; Z84.1 Family history of disorders of kidney and ureter; Z91.030 Bee allergy status; Z88.2 Allergy status to sulfonamides; Z88.8 Allergy status to other drugs, medicaments and biological substances; Z91.018 Allergy to other foods; Z79.84 Long term (current) use of oral hypoglycemic drugs; Z79.4 Long term (current) use of insulin; Z79.890 Hormone replacement therapy; Z88.7 Allergy status to serum and vaccine; Z91.012 Allergy to eggs; Z88.5 Allergy status to narcotic agent; Z91.013 Allergy to seafood
CPT/HCPCS: 71045; 74018; 74176; 74300; 76000; 76705; 78226; 80048; 80053; 80076; 82962; 83036; 83690; 85025; 85027; 87070; 88304; 93005; 94640; 94660; 96361; 96374; 96375; 96376; 97116; 97162; 97166; 99285; A4300; A9537

== ENCOUNTER 2024-11-16 22:47 | Inpatient (IN) | payer OTHER, SELFPAY ==
[2024-11-16 20:16] VITALS: BP 137/60; BMI 37.9
[2024-11-16] MEDS: DUONEB 3 ML INH (20:29)
[2024-11-16] MEDS: SOLU-MEDROL PF 40 MG IV (20:50)
--- NOTE | 2024-11-16 20:55 | ED.GENMED ---
History of Present Illness
General
Chief Complaint: Pneumonia Symptoms
Source: patient, records and ambulance crew
Time Seen by Provider: 11/16/24 20:16
History of Present Illness
History of Present Illness:
64-year-old female with past medical history of developmental delays, COPD (on 2 L via nasal cannula chronically, CHF, hypertension, insulin-dependent diabetes and extensive psychiatric history who presents to the emergency department via EMS from
her living facility for evaluation of increased shortness of breath and difficulty breathing. Patient was reportedly diagnosed with pneumonia about a week ago but based off of paperwork it appears she was not started on antibiotics until today
(doxycycline). EMS noted increased work of breathing and shortness of breath, on arrival patient currently on 6 L nasal cannula but remains tachypneic and satting around 88%. Patient does states she feels short of breath. Unclear as to if she has
had any fevers. Currently stating no chest pain. History was otherwise somewhat difficult to obtain.
Past History
Past History
ED Past Medical History: Asthma, CHF, COPD, HTN, Hypercholesterolemia, IDDM, Hypothyroidism, Psychiatric (Schizoaffective disorder, borderline personality disorder, major depressive disorder, suicide attempt) and Other (SBO,)
ED Past Surgical History: Appendectomy and Cholecystectomy
Social History
Tobacco: Non-smoker
Alcohol: None
Drug: None
Personal: Single
Living: other (penitentiary)
Employment: Not employed
Family History
Family History: Unable to obtain
Review of Systems
Review of Systems
All Other Systems: ROS reviewed and negative except as documented in HPI and ROS
Phy Exam
Physical Exam
Physical Exam:
GENERAL: Alert , in no apparent distress
HEAD: Normocephalic atraumatic
EYE: clear conjunctiva
NECK: Supple
ENT: o/p clr, mmm.
CARDIAC: Tachycardic rate and regular rhythm
LUNGS: Rhonchorous lung sounds throughout with scattered expiratory phase wheezing, tachypneic with accessory muscle use, is able to still speak full sentences
ABDOMEN: Soft, without focal tenderness, no r/g, no cvat
NEUROLOGICAL: Alert and oriented to self and place
SKIN: Warm and dry, skin intact.
MUSCULOSKELETAL: No edema, well perfused.
PSYCH: Normal and appropriate interaction.
Scores
Heart Failure Risk
Heart Failure Risk Score: Yes
History of Stroke or TIA: No
History of intubation for respiratory distress: No
Heart rate on ED arrival >/= 110: Yes
SaO2 <90% on arrival on room air: Yes
HR >/=110 during 3min walk test (or too ill to perform test): Yes
ECG has acute ischemic changes: No
Urea >/=12mmol/L (BUN 33.6mg/dL): No
Serum CO2>/=35mmol/L: No
Troponin I or T elevated to VA Level (0.4mg/dL): No
NT-proBNP >/=5,000ng/L (5,000pg/ml): No
HF Risk Score: 3
Admission Status: HIGH RISK 15.9% Consider SNF treatment or admission to hospital
Heart Score for Chest Pain Patients
STEMI patient?: Not applicable
Withdrawal Assessment of Alcohol
Withdrawal Assessment Completed?: Not applicable
Course
Orders/Labs/Results
Orders:
Orders
11/16/24 20:23
Electrocardiogram (*1) Urgent
Reason for Study: Shortness of Breath
EKG- Treatment ONCE
Ipratropium/Albuterol Sulfate [Duoneb] 3 ml INH R NOW ONE
MethylPREDNISolone PF [Solu-Medrol Pf] 40 mg IV NOW STA
CR Chest Portable - 1 View Urgent
Comment:
Reason For Exam: SOB, reportedly diagnosed with pneumonia
Reason Study Needs to be Portable: Patient Unstable
11/16/24 20:30
COVID-19 Antigen Urgent
Source: Nasal Swab
Complete Blood Count/With Diff Urgent
Comprehensive Metabolic Panel Urgent
NT-proBNP Urgent
Troponin I Urgent
11/16/24 20:49
Cefepime HCl [Maxipime] 2,000 mg IV NOW STA
11/16/24 20:53
Sterile Water [Sterile Water For Injection] 10 ml .ROUTE .STK-MED ONE
11/16/24 20:58
Lactic Acid Q4H
Comment: CANCEL 2nd LACTIC ACID IF 1st LACTIC ACID IS LESS THAN 2
Blood Culture Q30M
BERNA[place]TE Source: Blood/Venous
Specimen Description:
Blood Culture Q30M
BERNADETTE Source: Blood/Venous
Specimen Description:
11/16/24 21:00
Vancomycin [Vancocin] 2,000 mg 0.9% Sodium Chloride 500 ml [Nss] 500 ml IV NOW
11/16/24 21:33
Influenza A+B Rapid Molecular Urgent
BERNADETTE Source: Nasal Swab
Specimen Description:
11/16/24 22:18
Admit/Transfer Patient As Directed
Co-Sign Provider:
Level of Care: Inpatient admission
Assign to:: IMU- Intermediate Care
Physician / Group: Nikita Phipps
Diagnosis: sepsis, pneumonia
Reason for Hospitalization: sepsis, pneumonia
Expected length of stay greater than two midnights?: Yes
ELOS- Estimated Length of Stay in days: 3
I certify the patient meets the requirements for IP care: Yes
PRN Pain Medication Management As Directed
May give lesser potent ordered pain med per pt: Yes
preference::
Protocol:: Medication orders for pain may be administered in a
manner that supports deferring to patient preference
when the pt is:
- Requesting an ordered lesser potent pain medication.
Least to most potent pain medications are defined
as: acetaminophen < NSAID < tramadol < opioids
(morphine, oxycodone, hydromorphone).
- Requesting a lesser dose of the same medication IF
ORDERED.
- Requesting a less intrusive route of administration
if both routes are prescribed by the provider (PO <
IV).
11/16/24 22:23
Code Status As Directed
Resuscitation Status: Full Code
11/17/24 01:00
Lactic Acid Q4H
Comment: CANCEL 2nd LACTIC ACID IF 1st LACTIC ACID IS LESS THAN 2
Abnormal Lab Results
11/16/24
20:30
WBC 17.3 H 10^3/uL
(4.8-10.8)
RBC 3.34 L 10^6/uL
(4.20-5.40)
Hct 36.2 L %
(37.0-47.0)
MCV 108.4 H fL
(81.0-99.0)
MCH 37.1 H pg
(27.0-31.0)
Abs Immat Gran (auto) 0.1 H 10^3/uL
(0-0.05)
Absolute Neuts (auto) 13.5 H 10^3/uL
(1.4-6.5)
Absolute Monos (auto) 1.3 H 10^3/uL
(0.1-0.6)
Neutrophils % 77.8 H %
(42.2-75.2)
Lymphocytes % 12.0 L %
(20.5-51.1)
Chloride 96 L mmol/L
(98-107)
Carbon Dioxide 34 H mmol/L
(22-30)
BUN 26 H mg/dl
(7-17)
Glucose 145 H mg/dl
(70-99)
AST 106 H U/L
(14-36)
ALT 122 H U/L
(0-35)
11/16/24 20:30
11/16/24 20:30
Vital Signs
Initial and Last Documented VS:
Initial Vital Signs
Temp Pulse Resp BP Pulse Ox
100.0 F 107 32 137/60 88
11/16/24 20:16 11/16/24 20:16 11/16/24 20:16 11/16/24 20:16 11/16/24 20:16
Last Documented Vital Signs
Temp Pulse Resp BP Pulse Ox
98.9 F 96 23 143/61 94
11/16/24 22:15 11/16/24 23:45 11/16/24 23:15 11/16/24 23:00 11/16/24 23:45
MDM/Problems Addressed
Differential Diagnosis Includes:
Pneumonia
Asthma/COPD exacerbation
COVID or other viral syndrome
CHF
Valvular dysfunction
Cardiac arrhythmia
MDM/Problems Addressed:
64-year-old female presenting to the emergency department for evaluation of increased shortness of breath, on arrival to the ER found to be hypoxic despite increased O2. Currently on 6 L via nasal cannula but still hypoxic so will place on mid
flow. Portable chest x-ray ordered and done showing what appears to be bilateral lower lobe pneumonia. Found to be febrile on arrival, lactic acid and blood cultures ordered prior to antibiotics being initiated. Patient maintaining her blood
pressure presently and given her CHF do not want to volume overload. Plan to admit to hospitalist team pending labs and remaining workup.
Chronic conditions affecting care: COPD
Acute Exacerbation and/or Progression of Chronic Illness: COPD
*Radiology
Radiology exam reviewed: preliminary read by ED provider (Bilateral lower lobe pneumonia)
*Pulse Oximetry
SaO2: 88
Nasal Cannula flow liters per minute: 6
Patient hypoxic: yes
*EKG
Interpreted by ED Provider?: Yes
Heart Rate: 107
Rate: tachycardiac
Rhythm: sinus
Waterproof: normal axis
Ischemia: no ischemia
*Lei Seller Interpretation
Rate: tachycardiac
Rhythm: sinus
*Critical Care Note
Total Time (30-74mins, 75-104mins- exclusive of procedures): 30
comment:
Critical care statement: A total of 30 minutes of critical care time was provided for this patient. This includes management of unstable vital signs, evaluation of the patient at bedside, reviewing the patient's pertinent medical records, discussion
with consultants, review of old EKGs and review of pertinent medical records. This time with separate from time utilized to perform the aforementioned documented procedures
Patient Management
Discussion with other providers: Hospitalist
Escalation/DeEscalation of care consider admission/obs:
Patient's labs show a significant leukocytosis, normal lactic acid. Mild transaminitis likely related to infection. Chest x-ray showing suspected bilateral pneumonia. Antibiotics ordered. Hospitalist team aware and accepts for continued
evaluation and treatment.
ED Attending Note
-
Portions of this chart may have been created with voice recognition software.� Occasional wrong word or��sound alike� substitutions may have occurred due to the inherent limitations of voice recognition software.
Discharge Plan
Departure
Patient Disposition: Admit
Date of Disposition: 11/16/24
Time of Disposition: 21:40
Presentation/result/management discussed w/ accepting MD/DO: Hospitalist
Discharge Problem:
Pneumonia
Interventions
Interventions:
*Risk Screen - Suicide Last Done: 11/16/24 20:16
*General Assessment Last Done: 11/16/24 20:16
*Neglect/Abuse Screening Last Done: 11/16/24 20:16
*ED- Fall Risk Assessment Last Done: 11/16/24 20:16
*ED COVID-19 Vaccine History Last Done: 11/16/24 20:16
ED- Cardiac Assessment Last Done: 11/16/24 20:44
ED- Pulmonary Assessment Last Done: 11/16/24 20:44
[2024-11-16 20:58] LABS: COVID-19 Antigen Negative (Negative)
[2024-11-16] MEDS: MAXIPIME 2000 MG IV (20:59)
[2024-11-16 21:00] VITALS: BP 143/60
[2024-11-16 21:00] LABS: Hematocrit 36.2 % (37.0-47.0); Hemoglobin 12.4 g/dL (12.0-16.0); Mean Corp Hgb Conc. 34.3 g/dL (33.0-37.0); Mean Corpuscular Volume 108.4 fL (81.0-99.0); Nucleated Red Blood Cells % 0 %; Platelet Count 254 10^3/uL (130-400); Red Cell Dist. Width 13.6 % (11.5-14.5)
[2024-11-16 21:16] LABS: ALT (SGPT) 122 U/L (0-35); AST (SGOT) 106 U/L (14-36); Albumin 4.0 g/dl (3.5-5.0); Alkaline Phosphatase 115 U/L (38-126); Blood Urea Nitrogen 26 mg/dl (7-17); Calcium 9.2 mg/dl (8.4-10.2); Carbon Dioxide 34 mmol/L (22-30); Chloride 96 mmol/L (98-107); Estimated Creatinine Clearance 73 ml/min; Glucose 145 mg/dl (70-99); Potassium 4.2 mmol/L (3.5-5.1); Sodium 135 mmol/L (135-145); Total Protein 6.5 g/dl (6.3-8.2); eGFR > 60.00
[2024-11-16 21:21] LABS: Troponin I < 0.012 ng/ml
[2024-11-16] MEDS: VANCOCIN 540 MG IV (21:32)
--- NOTE | 2024-11-16 21:36 | HPS.HSE ---
Addendum entered and electronically signed by Nikita Phipps DO 11/16/24 23:07:
Patient seen and examined independently. Agree with findings and plan as set forth by SIA Mccauley.
Patient is a 64y F with PMH significant for Bipolar / schizophrenia, hypertension and DM who presents to ED from local facility for evaluation of cough and SOB. Patient reports cough and malaise for about one week. She is chronically on 2 lpm
of O2 at home. Patient was started on doxycycline earlier today (one dose thus far) but was sent to the ED for worsening SOB.
Ass:
Pneumonia
Sepsis secondary to the above
COPD / Asthma with Chronic Hypoxemic Respiratory Failure
Bipolar / Schizophrenia
Benign Hypertension
DM-II
Hypothyroidism
Chronic HFpEF
CIELO on CPAP
Plan:
Admit for further evaluation and treatment.
Patient presents with leukocytosis, tachycardia, tachypnea and CXR / symptoms consistent with pneumonia.
Abx with ceftriaxone and doxycycline.
Supportive care.
Follow I/Os and daily weights and adjust diuretic dosing as needed.
Follow for clinical improvement.
Continue usual psychotropic medications.
Follow glucose and cover with SSI as needed. Update A1C.
Original Note:
Family Physician
-
Family Physician: NOT KNOW UNKNOWN - PT DOES
Chief Complaint
-
shortness of breath
History of Present Illness
Patient is a 64-year-old female with past medical history significant for bipolar disorder / schizophrenia, DM-II, hypertension, hypothyroidism, obesity, COPD / asthma, anemia of chronic disease, GERD and chronic HFpEF who presented to [facility] ED for
evaluation of shortness of breath. Patient reports dry cough for approximately a week that has been associated with shortness of breath. She stated she had a low grad temp today of 100.2F and not aware of fever previous to this. She is on 2L O2 at
home. Denies any sick contact, chills, chest pain, nausea, vomiting, constipation, diarrhea or urinary symptoms.
Medical History
Past Medical History
Past Medical History: Reports Other
Additional Past Medical History:
bipolar disorder / schizophrenia
DM-II
hypertension
hypothyroidism
obesity
COPD / asthma
anemia of chronic disease
GERD
chronic HFpEF
Past Surgical History: Reports Other
Additional Past Surgical History:
appendectomy
cholecystectomy
Social History
Tobacco: Non-smoker
Alcohol: None
Drug: None
Living: Other ([facility])
Family History
Family History: Not pertinent
Allergies / Home Medications
Allergies reflects when Allergies were last updated in [facility].
Home Medications with original date entered in [facility]
Allergy/Medication List:
Allergies
Allergy/AdvReac Type Severity Reaction Status Date / Time
bee venom protein (honey bee) Allergy Unknown Verified 11/16/24 20:28
benzonatate (From Tessalon Allergy Rash Verified 11/16/24 20:28
Perles)
codeine Allergy Unknown Verified 11/16/24 20:28
egg Allergy Unknown Verified 11/16/24 20:28
fluphenazine (From Prolixin) Allergy Unknown Verified 11/16/24 20:28
haloperidol (From Haldol) Allergy Unknown Verified 11/16/24 20:28
hydroxychloroquine (From Allergy Unknown Verified 11/16/24 20:28
Plaquenil)
Influenza Virus Vaccines Allergy flu vaccine Verified 11/16/24 20:28
iodine Allergy Unknown Verified 11/16/24 20:28
Penicillins Allergy unknown; Verified 11/16/24 20:28
tolerated
cephalexin
June 2020
shellfish derived Allergy Unknown Verified 11/16/24 20:28
Sulfa (Sulfonamide Allergy Unknown Verified 11/16/24 20:28
Antibiotics)
tomato Allergy Unknown Verified 11/16/24 20:28
Home Medications
allopurinol 300 mg tablet 300 mg PO DAILY Gout 06/08/20
cholecalciferol (vitamin D3) 25 mcg (1,000 unit) tablet 1,000 units PO DAILY Supplement 06/08/20
metformin 1,000 mg tablet 1,000 mg PO BID Diabetes 06/08/20
ondansetron HCl 4 mg tablet 4 mg PO Q8HPRN PRN nausea 05/04/21
acetaminophen 325 mg tablet 650 mg PO Q6HPRN PRN back pain 05/28/21
insulin glulisine U-100 100 unit/mL subcutaneous pen (Apidra SoloStar U-100 Insulin) 8 unit SC DAILY Diabetes 09/13/21
olanzapine 10 mg tablet (Zyprexa) 15 mg PO mental health 09/13/21
furosemide 40 mg tablet 40 mg PO DAILY Fluid retention/Swelling 02/08/22
benzonatate 100 mg capsule 100 mg PO TIDPRN PRN COUGH 04/12/23
ezetimibe 10 mg tablet (Zetia) 10 mg PO DAILY High Cholesterol 04/12/23
glucagon 3 mg/actuation nasal spray (Baqsimi) 3 mg intranasal DAILYPRN PRN severe hypoglycemia 04/12/23
insulin glargine 100 unit/mL (3 mL) subcutaneous pen (Lantus Solostar U-100 Insulin) 21 unit SC DAILY Diabetes 04/12/23
loperamide 2 mg tablet 2 mg PO Q6HPRN PRN diarrhea 04/12/23
polyethylene glycol 3350 17 gram oral powder packet (Miralax) 17 g PO BID 04/12/23
valacyclovir 500 mg tablet 1,000 mg PO BID 04/12/23
docusate sodium 100 mg capsule 100 mg PO BID Constipation 07/26/23
guaifenesin 600 mg tablet, extended release 12 hr (Mucinex) 600 mg PO BID Congestion 07/26/23
albuterol sulfate 2.5 mg/3 mL (0.083 %) solution for nebulization 2.5 mg inhalation R Q6HPRN PRN sob 10/31/23
benzoyl peroxide 5 % topical cleanser 1 applic topical DAILY boil-prone areas 10/31/23
clonazepam 1 mg tablet 1.5 mg PO HS Mental Health/Anxiety 10/31/23
lorazepam 2 mg tablet 2 mg PO Q8HPRN PRN anxeity 10/31/23
amlodipine 5 mg tablet 5 mg PO DAILY Blood Pressure 01/24/24
ibuprofen 200 mg tablet (Advil) 600 mg PO Q8HPRN PRN severe pain 01/24/24
olanzapine 5 mg tablet 5 mg PO [id number] PRN Agitation 01/24/24
pantoprazole 40 mg tablet,delayed release 40 mg PO DAILY Gastrointestinal Issue 01/24/24
theophylline 300 mg capsule,extended release 24 hr 300 mg PO DAILY Lung/Breathing Issues 01/24/24
atorvastatin 20 mg tablet (Lipitor) 20 mg PO HS 09/25/24
dapagliflozin propanediol 10 mg tablet (Farxiga) 10 mg PO DAILY 09/25/24
divalproex 500 mg tablet,extended release 24 hr 1,000 mg PO HS 09/25/24
furosemide 20 mg tablet (Lasix) 40 mg PO DAILYPRN PRN 6 hours aftr monring dose.fluid 09/25/24
gabapentin 100 mg capsule 100 mg PO TIDPRN PRN mild pain 09/25/24
insulin glulisine U-100 100 unit/mL subcutaneous pen (Apidra SoloStar U-100 Insulin) 9 sliding scale dose SC BID@1200,1600 09/25/24
levothyroxine 100 mcg tablet (Synthroid) 100 mcg PO DAILY 09/25/24
mometasone-formoterol HFA 100 mcg-5 mcg/actuation aerosol inhaler (Dulera) 1 puff inhalation R BID 09/25/24
therapeutic multivitamin 1 tab PO DAILY 09/25/24
melatonin 5 mg tablet 5 mg PO HS Sleep #0 tabs 10/01/24
aluminum-mag hydroxide-simethicone 200 mg-200 mg-20 mg/5 mL oral susp (Iris-Lanta) 15 ml PO BIDPRN PRN stomach issuses 11/16/24
dextromethorphan-guaifenesin 10 mg-100 mg/5 mL oral liquid (Guaiasorb DM) 10 ml PO Q6HPRN PRN cough 11/16/24
doxycycline hyclate 100 mg tablet 100 mg PO BID 11/16/24
fluoxetine 20 mg tablet 20 mg PO DAILY 11/16/24
magnesium hydroxide 400 mg/5 mL oral suspension (Milk of Magnesia) 2,400 mg PO DAILYPRN PRN constipation 11/16/24
Review of Systems
-
History Source: Patient
Constitutional: Reports Fever
EENT: Denies Sore Throat
Respiratory: Reports Cough (non-productive ) and Trouble Breathing (increased shortness of breath )
Cardiac: Denies Chest Pain, Diaphoresis, Palpitations or Syncope
Abdomen/GI: Denies Abdominal Pain, Nausea, Vomiting or Diarrhea
: Denies Dysuria, Frequency, Flank Pain, Difficulty Voiding or Urgency
Musculoskeletal: Reports No Symptoms
Skin: Denies Rash
Neurological: Denies Dizzy, Headache, Weakness or Numbness
Endocrine: Denies Polyuria or Polydipsia
Hematologic/Lymphatic: Reports No Symptoms
Psych: Reports Calm
Physical Exam
Vital Signs
Vital Signs
Temp Pulse Resp BP Pulse Ox
100.0 F 107 32 137/60 88
11/16/24 20:16 11/16/24 20:16 11/16/24 20:16 11/16/24 20:16 11/16/24 20:58
Physical Exam
General: Well Developed, Well Nourished, No Apparent Distress, Conversant and Obese
HEENT: NormoCephalic, Moist mucous membranes and Atraumatic
Respiratory: Wheezes, Rhonchi and Non Labored Respirations
Cardiac: S1/S2, Regular Rhythm and Tachycardia; No Murmur, Rub or Gallop
Breast: Deferred by me
GI: Soft, Non Tender, Non Distended and Normal Bowel Sounds; No Organomegaly
Rectal: Deferred by Provider
Genito-urinary: Deferred by me
Musculoskeletal: No Clubbing and No Cyanosis
Skin: Warm and IV/Catheter Site; No Rash
Neuro: Awake, AO x 3 and Nonfocal/grossly intact
Hematologic/Lymphatic: No Lymphadenopathy
Psych: Calm
Laboratory Results
-
11/16/24 20:30
11/16/24 20:30
Laboratory Results
Lactic Acid 1.7 mmol/L (0.7-2.0) 11/16/24 20:58
Total Bilirubin 0.6 mg/dl (0.2-1.3) 11/16/24 20:30
AST 106 U/L (14-36) H 11/16/24 20:30
ALT 122 U/L (0-35) H 11/16/24 20:30
Alkaline Phosphatase 115 U/L (38-126) 11/16/24 20:30
Troponin I < 0.012 ng/ml 11/16/24 20:30
Data Reviewed
-
Diagnostic Radiology: Report Reviewed by me (CXR: Some suspected patchy bilateral perihilar opacities which could represent pneumonitis. Pulmonary vascularity at least top normal.)
Lab Data: Labs Reviewed by me (WBC 17.3, Neut 77.8, CO2 34, BUN 26, AST 106, ALT 122)
Impression/Plan
-
IMPRESSION/PLAN:
#sepsis likely 2/2 pneumonia
WBC 17.3, Neut 77.8, CO2 34, BUN 26, AST 106, ALT 122
CXR: Some suspected patchy bilateral perihilar opacities which could represent pneumonitis.
Pulmonary vascularity at least top normal.
EKG: SINUS TACHYCARDIA
MINIMAL VOLTAGE CRITERIA FOR LVH, MAY BE NORMAL VARIANT ( Anish product )
Covid: negative
Influenza: negative
- Admit to IMU
- IV Rocephin and doxycycline
- supportive care
#bipolar disorder / schizophrenia
- continue clonazepam, divalproex, fluoxetine, lorazepam and olanzapine
#DM-II
- AccuCheck AC & HS
- SSI
- continue Farxiga and Lantus
- hold metformin
#hypertension
- continue amlodipine
#hypothyroidism
- continue levothyroxine
#COPD / asthma
- continue albuterol, guaifenesin and theophylline
#anemia of chronic disease
hgb 12.4, hct 36.2
appears to be stable
- monitor H/H
#GERD
- continue pantoprazole
#chronic HFpEF
- daily weights
- I & Os
- continue Farxiga, furosemide,
#obesity
Code status: full code
DVT prophylaxis: lovenox sq
[2024-11-16 22:00] VITALS: BP 142/63
[2024-11-16 23:00] VITALS: BP 143/61
[2024-11-17] VITALS (17 sets, daily range): BP systolic 126–166; BP diastolic 56–96; PULSE 92–101; BMI 37.1
--- NOTE | 2024-11-17 00:33 | PTCARENOTE ---
Pt arrived by RD RN. Pt able to make needs known AAOx4. Pt had no complaints at this time. Pt spo2 94% 12L midflow RR even unlabored. Call azevedo within reach bed alarm on and in lowest position.
--- NOTE | 2024-11-17 01:02 | PTCARENOTE ---
While asking admit question Pt answered yes to having thoughts of self harm over past 2 weeks with out action. Pt does not have these feeling now and does not have a plan. Pt has Hx of physiatric issues. Danette SIMMONS made aware, 1:1 not needed at this
time. Call azevedo within reach bed in lowest position.
[2024-11-17] MEDS: KLONOPIN 1.5 MG PO ×2 (01:12→22:07)
[2024-11-17] MEDS: MUCINEX 600 MG PO ×3 (01:12→20:23)
[2024-11-17] MEDS: DEPAKOTE ER (24 HR RELEASE) 1000 MG PO ×2 (01:12→22:07)
[2024-11-17] MEDS: VIBRAMYCIN 260 MG IV (01:50)
[2024-11-17] MEDS: ROCEPHIN 1000 MG IV (05:31)
[2024-11-17] MEDS: STERILE WATER FOR INJECTION 10 ML IV (05:31)
[2024-11-17] MEDS: SYNTHROID 100 MCG PO (05:31)
--- NOTE | 2024-11-17 05:56 | PTCARENOTE ---
Update given to Nayan cantu RN.
[2024-11-17] MEDS: SYMBICORT 80/4.5 MCG INHALER 2 PUFF INH ×2 (07:25→19:24)
[2024-11-17 07:41] LABS: Glucose - Point of Care 202 mg/dl (70-99)
[2024-11-17] MEDS: LANTUS 0.21 UNITS SC (08:10)
[2024-11-17] MEDS: PROZAC 20 MG PO (08:10)
[2024-11-17] MEDS: MIRALAX 17 GRAMS PO ×2 (08:10→20:23)
[2024-11-17] MEDS: ZYLOPRIM 300 MG PO (08:10)
[2024-11-17] MEDS: VALTREX 1000 MG PO ×2 (08:10→20:23)
[2024-11-17] MEDS: PROTONIX 40 MG PO (08:10)
[2024-11-17] MEDS: COLACE 100 MG PO ×2 (08:11→20:23)
[2024-11-17] MEDS: FARXIGA 10 MG PO (08:11)
[2024-11-17] MEDS: THEO DUR 300 MG PO (08:11)
[2024-11-17] MEDS: VIBRAMYCIN 100 MG PO ×2 (08:11→20:23)
[2024-11-17] MEDS: LASIX 40 MG PO (08:11)
[2024-11-17] MEDS: NORVASC 5 MG PO (08:11)
[2024-11-17] MEDS: ZETIA 10 MG PO (08:11)
--- NOTE | 2024-11-17 08:47 | PTCARENOTE ---
Patient AAOx3, occasionally calls out. Currently getting a midline placed. Tolerating 12L midflow, sats 94%. VSS, NSR on monitor. Patient making needs known. Will closely monitor.
--- NOTE | 2024-11-17 09:35 | W.PN.HOSP.TC ---
Today's Communication/Plan
-
see bold
Assessment / Plan
Assessment / Plan
HPI: 64y F with PMH significant for Bipolar / schizophrenia, hypertension and DM who presents to ED from local facility for evaluation of cough and SOB. Patient reports cough and malaise for about one week. She is chronically on 2 lpm of O2 at
home. Patient was started on doxycycline earlier today (one dose thus far) but was sent to the ED for worsening SOB.
#Sepsis
#Pneumonia
WBC 17.3, Neut 77.8, CO2 34, BUN 26, AST 106, ALT 122
CXR: Some suspected patchy bilateral perihilar opacities which could represent pneumonitis.
Pulmonary vascularity at least top normal.
Urine Legionella/strep antigens negative, COVID/flu negative
Continue Rocephin/doxycycline day 2, follow-up blood cultures
Trend fever and white count
#Acute on chronic hypoxic respiratory failure
#History of COPD/asthma
Currently requiring 12 L of oxygen wean as tolerated. She wears 2 L at baseline
And budesonide neb, bronchodilators
#Pleuritic chest pain
Due to pneumonia
Troponin negative
#Bipolar disorder/schizophrenia
Continue Klonopin, Depakote, Prozac, Zyprexa
#Essential hypertension
Continue amlodipine 5 mg daily
#Type 2 diabetes
Check hemoglobin A1c, continue home Lantus 21 units daily
Add sliding scale insulin, NovoLog 5 units AC 3 times daily
#Obstructive sleep apnea
Noncompliant with her CPAP per report
#Obesity due to excess calories
Affects all aspects of care
DVT prophylaxis�Lovenox
Full code
[facility]
Total time spent to see the patient on the floor, examine the patient, review data and lab results, discuss treatment plan with patient, nursing staff around 51 minutes.
Physical Exam
General: Obese, no acute distress
HEENT: Normocephalic, Atraumatic, EOMI, MMM
Respiratory: Coarse breath sounds with scattered wheezing and rhonchi
Cardiac: Normal S1/S2, Regular Rate and Rhythm
GI: Soft, Nontender, Nondistended, Normal Bowel Sounds
Extremities: No Clubbing, Cyanosis, or Edema
Neuro: Nonfocal/Grossly Intact
Psych: Calm, Cooperative
Derm: No Visible lesions
Anticipated Discharge: > 48 hours
Subjective/Interval History
-
Date of Service: November 17, 2024
Patient continues to complain of shortness of breath, and pain with breathing. Denies nausea, denies vomiting. She is having low-grade fever.
Objective Data
-
Labs:
Laboratory Results
11/17/24
06:00
WBC Pending
Hgb Pending
Hct Pending
Plt Count Pending
Sodium Pending
Potassium Pending
Chloride Pending
Carbon Dioxide Pending
BUN Pending
Creatinine Pending
Glucose Pending
Calcium Pending
Vital Signs:
Vital Signs
Temp Pulse Resp BP Pulse Ox
97.7 F 97 17 143/96 94
11/17/24 07:47 11/17/24 08:11 11/17/24 08:00 11/17/24 08:11 11/17/24 08:00
I&O
11/16/24 11/17/24 11/18/24
06:59 06:59 06:59
Intake Total 480 / 480
Output Total 400 / 400
Balance 80 / 80
[2024-11-17 10:58] LABS: Hematocrit 34.3 % (37.0-47.0); Hemoglobin 11.6 g/dL (12.0-16.0); Mean Corp Hgb Conc. 33.8 g/dL (33.0-37.0); Mean Corpuscular Volume 109.6 fL (81.0-99.0); Platelet Count 241 10^3/uL (130-400); Red Cell Dist. Width 13.7 % (11.5-14.5)
[2024-11-17 11:07] LABS: Blood Urea Nitrogen 29 mg/dl (7-17); Calcium 9.1 mg/dl (8.4-10.2); Carbon Dioxide 33 mmol/L (22-30); Chloride 101 mmol/L (98-107); Estimated Creatinine Clearance 64 ml/min; Glucose 294 mg/dl (70-99); Potassium 4.6 mmol/L (3.5-5.1); Sodium 138 mmol/L (135-145); eGFR > 60.00
[2024-11-17 11:41] LABS: Glucose - Point of Care 256 mg/dl (70-99)
--- NOTE | 2024-11-17 11:58 | CM ---
Addendum entered by Albina Cordova 11/17/24 14:26:
WHIT Montemayor spoke to the Burner Technician Mirian #[phone] ext: [phone] who described the type of [facility], [facility].
PCP: Dr. Shimon Cleary
Pharmacy: [facility]
[address]
[facility]
P:[phone]
F:[phone] (IF ANY new medications, to give [facility] a heads up bc takes a day to get medications ordered and in)
WHIT Montemayor also spoke to RN Judith who said patient does have a CPAP, said that patient broke the machine possibly, and is not compliant. Judith said that she uses [employer] for her oxygen company and may use it for the CPAP.
For furture reference:
[facility]
Report: [phone]

Addendum entered by Albina Cordova 11/17/24 12:25:
Additional Information: Patient was in he ER many times over the last year. Patient was 303 in Nov 2023 and [facility] for her mental illness.
Original Note:
Initial Assessment Completed by WHIT Montemayor
WHIT Montemayor checked with the RN and patient is oriented x4. WHIT Montemayor met with patient, she lives at:
[facility]
[address] [place] [address]
[phone]
It is a 2 story house, there is a total of 13, 3 woman, and 10 men, she lives on the 1st floor in a room, uses a regular rolling walker, and uses 2 liters of oxygen. Patient is on CPAP 2x last night so when asked, patient has a CPAP at home, but it
is broken, has been for sometime, says she knows how to use it.
Patient had [facility] in the past for VN and PT. Patient was at a SNF recently this year due to a Gall Bladder surgery. Unknown PCP and Pharmacy at this time so will wait for call back from Mirian Tavarez- Burner Technician at this [facility] to get more
information.
PLAN: Return to [facility] with VN/PT Services or SNF. WHIT Montemayor requested orders from Medical Team for PT/OT to be placed.
[2024-11-17] MEDS: TYLENOL 650 MG PO ×2 (13:05→20:25)
[2024-11-17 17:20] LABS: Glucose - Point of Care 214 mg/dl (70-99)
[2024-11-17] MEDS: NOVOLOG FLEXPEN-MODERATE RESISTANCE 3 UNITS SC (17:52)
[2024-11-17] MEDS: NOVOLOG FLEXPEN 5 UNITS SC (17:53)
[2024-11-17] MEDS: LOVENOX 40 MG SC (17:55)
[2024-11-17 21:04] LABS: Glucose - Point of Care 214 mg/dl (70-99)
[2024-11-17] MEDS: ZYPREXA 15 MG PO (22:07)
[2024-11-17] MEDS: LIPITOR 20 MG PO (22:07)
[2024-11-17] MEDS: MELATONIN 5 MG PO (22:07)
--- NOTE | 2024-11-17 22:17 | W.PN.UPDATE ---
Update Note
Progress Note Update
2149 Using her gingerale can pt cut herself on bilateral thumbs. Each lac (2 that were bleeding) are approx 1 inch in length. Don't appear too deep but they are bleeding. Right thumb lac bleeding more. Pressure held and quick clot applied.
Prior to this pt was screaming for her 10pm medications. As one of the nurses was telling pt primary nurse the pt room door was closed (due to her screaming). Unknowingly, pt is claustrophobic and she was scared and cut herself. Explained to Memo
that we did not know that she was claustrophobic and that she needs to express her feeling vs acting out. PT has hx of bipolar and schizophrenia and lives in residential.
1:1 initiated.
Psych consulted
[2024-11-18] VITALS (16 sets, daily range): BP systolic 139–177; BP diastolic 70–129; PULSE 95–106; O2SAT 92; BMI 36.9
--- NOTE | 2024-11-18 01:51 | PTCARENOTE ---
Pt now a 1:1 to prevent self harm. See incident report [id number]. Pt yelling out getting upset about not having medication at that moment. Emotional support and redirection attempted. Door closed by due to Pt yelling and screaming out. Pt
escalating situation by grabbing soda can ripping apart and cutting thumbs and arm. RN's to bed side able to get can away from Pt. Emotional support given to Pt. Pt communicating to this RN she got very upset because 'they closed my door, Im
claustrophobic'. More emotional support and educating given. Night TRADESHOW WORKER to bed side. Wound care done.
--- NOTE | 2024-11-18 02:00 | PTCARENOTE ---
Pt now a 1:1 to prevent self harm. Pt yelling out getting upset about not having medication at that moment. Emotional support and redirection attempted. Door closed by due to Pt yelling and screaming out. Pt escalating situation by grabbing soda can
ripping apart and cutting thumbs and arm. RN's to bed side able to get can away from Pt. Emotional support given to Pt. Pt communicating to this RN she got very upset because 'they closed my door, Im claustrophobic'. More emotional support and
educating given. Night COATER SMOKING PIPE to bed side. Wound care done.
[2024-11-18] MEDS: SYNTHROID 100 MCG PO (05:01)
[2024-11-18] MEDS: ROCEPHIN 1000 MG IV (05:01)
[2024-11-18] MEDS: STERILE WATER FOR INJECTION 10 ML IV (05:01)
--- NOTE | 2024-11-18 05:15 | PTCARENOTE ---
Pt calm and compliant with care for rest of night, no out busts at this time. 1:1 remains at bed side. SPo2 96% on cpap 15L, respirations even unlabored at this time.
[2024-11-18 05:59] LABS: Hematocrit 32.9 % (37.0-47.0); Hemoglobin 11.0 g/dL (12.0-16.0); Mean Corp Hgb Conc. 33.4 g/dL (33.0-37.0); Mean Corpuscular Volume 110.0 fL (81.0-99.0); Platelet Count 277 10^3/uL (130-400); Red Cell Dist. Width 13.7 % (11.5-14.5)
[2024-11-18 06:09] LABS: Blood Urea Nitrogen 34 mg/dl (7-17); Calcium 9.2 mg/dl (8.4-10.2); Carbon Dioxide 34 mmol/L (22-30); Chloride 102 mmol/L (98-107); Estimated Creatinine Clearance 64 ml/min; Glucose 152 mg/dl (70-99); Potassium 4.3 mmol/L (3.5-5.1); Sodium 142 mmol/L (135-145); eGFR > 60.00
[2024-11-18 07:13] LABS: Glucose - Point of Care 150 mg/dl (70-99)
[2024-11-18] MEDS: SYMBICORT 80/4.5 MCG INHALER 2 PUFF INH ×2 (07:28→19:16)
[2024-11-18] MEDS: NOVOLOG FLEXPEN 5 UNITS SC ×2 (09:17→12:03)
[2024-11-18] MEDS: NOVOLOG FLEXPEN-MODERATE RESISTANCE 1 UNITS SC ×2 (09:17→17:53)
[2024-11-18] MEDS: PROZAC 20 MG PO (09:18)
[2024-11-18] MEDS: LANTUS 0.21 UNITS SC (09:18)
[2024-11-18] MEDS: MIRALAX 17 GRAMS PO ×2 (09:18→19:52)
[2024-11-18] MEDS: ZETIA 10 MG PO (09:18)
[2024-11-18] MEDS: PROTONIX 40 MG PO (09:18)
[2024-11-18] MEDS: MUCINEX 600 MG PO ×2 (09:19→19:53)
[2024-11-18] MEDS: FARXIGA 10 MG PO (09:19)
[2024-11-18] MEDS: VALTREX 1000 MG PO ×2 (09:19→19:53)
[2024-11-18] MEDS: THEO DUR 300 MG PO (09:19)
[2024-11-18] MEDS: COLACE 100 MG PO ×2 (09:19→19:53)
[2024-11-18] MEDS: LASIX 40 MG PO (09:19)
[2024-11-18] MEDS: VIBRAMYCIN 100 MG PO ×2 (09:20→19:52)
[2024-11-18] MEDS: NORVASC 5 MG PO ×2 (09:20→16:14)
[2024-11-18] MEDS: ZYLOPRIM 300 MG PO (09:20)
--- NOTE | 2024-11-18 09:31 | W.PN.HOSP.TC ---
Today's Communication/Plan
-
see bold
Assessment / Plan
Assessment / Plan
HPI: 64y F with PMH significant for Bipolar / schizophrenia, hypertension and DM who presents to ED from local facility for evaluation of cough and SOB. Patient reports cough and malaise for about one week. She is chronically on 2 lpm of O2 at
home. Patient was started on doxycycline earlier today (one dose thus far) but was sent to the ED for worsening SOB.
#Sepsis
#Pneumonia
WBC 17.3, Neut 77.8, CO2 34, BUN 26, AST 106, ALT 122
CXR: Some suspected patchy bilateral perihilar opacities which could represent pneumonitis.
Pulmonary vascularity at least top normal.
Urine Legionella/strep antigens negative, COVID/flu negative
Continue Rocephin/doxycycline day 3, follow-up blood cultures
Trend fever and white count
#Acute on chronic hypoxic respiratory failure
#History of COPD/asthma
Currently requiring 12 L of oxygen wean as tolerated. She wears 2 L at baseline
Appreciate pulmonology input, started on Solu-Medrol 11/18
#Pleuritic chest pain
Due to pneumonia
Troponin negative
#Bipolar disorder/schizophrenia
#Cutting her thumbs on a soda can 11/17
Continue Klonopin, Depakote, Prozac, Zyprexa
Psychiatry consulted, checking Depakote levels, TSH
#Essential hypertension
Increase amlodipine to 10 mg daily
#Type 2 diabetes
Check hemoglobin A1c, increase home Lantus 25 units daily
Increase NovoLog 9 units AC 3 times daily
#Obstructive sleep apnea
Noncompliant with her CPAP per report
#Obesity due to excess calories
Affects all aspects of care
DVT prophylaxis�Lovenox
Full code
Dispo - resides at [facility]
Total time spent to see the patient on the floor, examine the patient, review data and lab results, discuss treatment plan with patient, nursing staff around 52 minutes.
Physical Exam
General: Obese, no acute distress
HEENT: Normocephalic, Atraumatic, EOMI, MMM
Respiratory: Severely diminished breath sounds at the bases with right basilar crackles
Cardiac: Normal S1/S2, Regular Rate and Rhythm
GI: Soft, Nontender, Nondistended, Normal Bowel Sounds
Extremities: No Clubbing, Cyanosis, or Edema
Neuro: Nonfocal/Grossly Intact
Psych: Calm, Cooperative
Derm: Laceration on bilateral thumbs are dressed
Anticipated Discharge: > 48 hours
Subjective/Interval History
-
Date of Service: November 17, 2024
Overnight events noted. Patient reports her breathing is improved. She denies nausea, denies vomiting. No fever.
Objective Data
-
Labs:
Laboratory Results
11/17/24
10:31
WBC 14.2 H
Hgb 11.6 L
Hct 34.3 L
Plt Count 241
Sodium 138
Potassium 4.6
Chloride 101
Carbon Dioxide 33 H
BUN 29 H
Creatinine 0.9
Glucose 294 H
Calcium 9.1
Vital Signs:
Vital Signs
Temp Pulse Resp BP Pulse Ox
98.2 F 99 20 159/86 91
11/17/24 15:07 11/17/24 16:08 11/17/24 16:08 11/17/24 16:08 11/17/24 16:01
I&O
11/16/24 11/17/24 11/18/24
06:59 06:59 06:59
Intake Total 480 / 480
Output Total 400 / 400 800 / 800
Balance 80 / 80 -800 / -800
[2024-11-18 11:30] LABS: B.E. 8.9 mmol/L; HCO3 34.6 mmol/L (21-28); O2 Saturation % 97.7 % (94-98); PCO2 51 mmHg (32-35); PO2 81 mmHg (83-108)
[2024-11-18] MEDS: TYLENOL 650 MG PO ×2 (11:32→19:53)
--- NOTE | 2024-11-18 11:33 | CM ---
Following up on patient today. RN stated that patient is now on 12 liters and cannot wean down as of yet. RN said and WHIT Montemayor read that patient was agitated, upset over a few things, cut her finger, likely deliberately on a soda can, and has been
refusing care. This morning, RN was able to have her agree to take meds.
WHIT Montemayor called the Supervisor Cell Room Mirian at [facility] who said that patient has Borderline Personality Disorder so they at the [facility], ensure she has her activities like coloring books and other things to assist with her behaviors at
times. In all, they keep her occupied, and use these tatcics when she is behaving bad.
Mirian shared that the former company that owned [facility] did have Guardianship, but now with [employer], they are not allowed so the patient is her own decision maker and can choose. RN said Psychiatry will evaluate the patient today. PT/OT is seeing the
patient now who is agreeable today.
PLAN: Return to [facility] or [facility]
[2024-11-18] MEDS: SOLU-MEDROL PF 40 MG IV (11:58)
[2024-11-18] MEDS: NOVOLOG FLEXPEN-MODERATE RESISTANCE 5 UNITS SC (12:04)
[2024-11-18 12:08] LABS: Glucose - Point of Care 282 mg/dl (70-99)
--- NOTE | 2024-11-18 12:11 | CON.PUL ---
Consultation
Consultation Request
Date/Time Consultation Requested: 11/18/2024
Date/Time Consultation Performed: 11/18/2024
Medical History
-
Chief Complaint: Cough, shortness of breath
History of Present Illness:
Patient is a 64 old female with known history of underlying schizophrenia and bipolar disorder with COPD asthma overlap syndrome along with untreated obstructive sleep apnea and obesity who was admitted to the hospital on 11/16 with increasing
shortness of breath. Patient was noted to be febrile along with evidence of pneumonia and was started on antibiotic and supplemental oxygen. Patient is chronically on 2 L oxygen at home and was having dry cough going on for about a week's time.
Patient has been on antibiotics and currently requiring 12 L supplemental oxygen and saturating about 92%. Pulmonary consultation was requested for further input.
Past Medical History: Reports Other
Additional Past Medical History:
bipolar disorder / schizophrenia
DM-II
hypertension
hypothyroidism
obesity
COPD / asthma
anemia of chronic disease
GERD
chronic HFpEF
Past Surgical History: Reports Other
Additional Past Surgical History:
appendectomy
cholecystectomy
Social History
Tobacco: Non-smoker
Alcohol: None
Drug: None
Living: Other ([facility])
Family History
Family History: Not pertinent
Allergies / Home Medications
Allergies / Home Medications
Allergies
Allergy/AdvReac Type Severity Reaction Status Date / Time
bee venom protein (honey bee) Allergy Unknown Verified 11/16/24 20:28
benzonatate (From Tessalon Allergy Rash Verified 11/16/24 20:28
Perles)
codeine Allergy Unknown Verified 11/16/24 20:28
egg Allergy Unknown Verified 11/16/24 20:28
fluphenazine (From Prolixin) Allergy Unknown Verified 11/16/24 20:28
haloperidol (From Haldol) Allergy Unknown Verified 11/16/24 20:28
hydroxychloroquine (From Allergy Unknown Verified 11/16/24 20:28
Plaquenil)
Influenza Virus Vaccines Allergy flu vaccine Verified 11/16/24 20:28
iodine Allergy Unknown Verified 11/16/24 20:28
Penicillins Allergy unknown; Verified 11/16/24 20:28
tolerated
cephalexin
June 2020
shellfish derived Allergy Unknown Verified 11/16/24 20:28
Sulfa (Sulfonamide Allergy Unknown Verified 11/16/24 20:28
Antibiotics)
tomato Allergy Unknown Verified 11/16/24 20:28
Home Medications
�Medication �Instructions �Recorded �Confirmed �Last Taken �Type
allopurinol 300 mg tablet 300 mg PO DAILY Gout 06/08/20 11/16/24 11/16/24 History
cholecalciferol (vitamin D3) 25 1,000 units PO DAILY Supplement 06/08/20 11/16/24 11/16/24 History
mcg (1,000 unit) tablet
metformin 1,000 mg tablet 1,000 mg PO BID Diabetes 06/08/20 11/16/24 11/16/24 History
ondansetron HCl 4 mg tablet 4 mg PO Q8HPRN PRN nausea 05/04/21 11/16/24 09/25/24 History
acetaminophen 325 mg tablet 650 mg PO Q6HPRN PRN back pain 05/28/21 11/16/24 11/16/24 History
insulin glulisine U-100 100 8 unit SC DAILY Diabetes 09/13/21 11/16/24 11/16/24 History
unit/mL subcutaneous pen (Apidra
SoloStar U-100 Insulin)
olanzapine 10 mg tablet (Zyprexa) 15 mg PO mental health 09/13/21 11/16/24 11/16/24 History
furosemide 40 mg tablet 40 mg PO DAILY Fluid 02/08/22 11/16/24 11/16/24 History
retention/Swelling
benzonatate 100 mg capsule 100 mg PO TIDPRN PRN COUGH 04/12/23 11/16/24 01/23/24 History
ezetimibe 10 mg tablet (Zetia) 10 mg PO DAILY High Cholesterol 04/12/23 11/16/24 11/16/24 History
glucagon 3 mg/actuation nasal 3 mg intranasal DAILYPRN PRN 04/12/23 11/16/24 Unknown History
spray (Baqsimi) severe hypoglycemia
insulin glargine 100 unit/mL (3 21 unit SC DAILY Diabetes 04/12/23 11/16/24 11/16/24 History
mL) subcutaneous pen (Lantus
Solostar U-100 Insulin)
loperamide 2 mg tablet 2 mg PO Q6HPRN PRN diarrhea 04/12/23 11/16/24 Unknown History
polyethylene glycol 3350 17 gram 17 g PO BID Constipation 04/12/23 11/16/24 11/16/24 History
oral powder packet (Miralax)
valacyclovir 500 mg tablet 1,000 mg PO BID Infection 04/12/23 11/16/24 11/16/24 History
docusate sodium 100 mg capsule 100 mg PO BID Constipation 07/26/23 11/16/24 11/16/24 History
guaifenesin 600 mg tablet, 600 mg PO BID Congestion 07/26/23 11/16/24 11/16/24 History
extended release 12 hr (Mucinex)
albuterol sulfate 2.5 mg/3 mL 2.5 mg inhalation R Q6HPRN PRN sob 10/31/23 11/16/24 11/16/24 History
(0.083 %) solution for nebulization
benzoyl peroxide 5 % topical 1 applic topical DAILY boil-prone 10/31/23 11/16/24 11/16/24 History
cleanser areas
clonazepam 1 mg tablet 1.5 mg PO HS Mental Health/Anxiety 10/31/23 11/16/24 11/16/24 History
lorazepam 2 mg tablet 2 mg PO Q8HPRN PRN anxeity 10/31/23 11/16/24 11/16/24 History
amlodipine 5 mg tablet 5 mg PO DAILY Blood Pressure 01/24/24 11/16/24 11/16/24 History
ibuprofen 200 mg tablet (Advil) 600 mg PO Q8HPRN PRN severe pain 01/24/24 11/16/24 11/14/24 History
olanzapine 5 mg tablet 5 mg PO [id number] PRN Agitation 01/24/24 11/16/24 11/12/24 History
pantoprazole 40 mg tablet,delayed 40 mg PO DAILY Gastrointestinal 01/24/24 11/16/24 11/16/24 History
release Issue
theophylline 300 mg 300 mg PO DAILY Lung/Breathing 01/24/24 11/16/24 11/16/24 History
capsule,extended release 24 hr Issues
atorvastatin 20 mg tablet (Lipitor) 20 mg PO HS High Cholesterol 09/25/24 11/16/24 11/16/24 History
dapagliflozin propanediol 10 mg 10 mg PO DAILY Heart 09/25/24 11/16/24 11/16/24 History
tablet (Farxiga) Disease/Condition
divalproex 500 mg tablet,extended 1,000 mg PO HS Mental 09/25/24 11/16/24 11/16/24 History
release 24 hr Health/Anxiety
furosemide 20 mg tablet (Lasix) 40 mg PO DAILYPRN PRN 6 hours aftr 09/25/24 11/16/24 Unknown History
monring dose.fluid
gabapentin 100 mg capsule 100 mg PO TIDPRN PRN mild pain 09/25/24 11/16/24 09/21/24 History
insulin glulisine U-100 100 9 sliding scale dose SC 09/25/24 11/16/24 11/16/24 History
unit/mL subcutaneous pen (Apidra BID@1200,1600 Diabetes
SoloStar U-100 Insulin)
levothyroxine 100 mcg tablet 100 mcg PO DAILY Thyroid 09/25/24 11/16/24 11/16/24 History
(Synthroid)
mometasone-formoterol HFA 100 1 puff inhalation R BID 09/25/24 11/16/24 11/16/24 History
mcg-5 mcg/actuation aerosol Lung/Breathing Issues
inhaler (Dulera)
therapeutic multivitamin 1 tab PO DAILY Supplement 09/25/24 11/16/24 11/16/24 History
melatonin 5 mg tablet 5 mg PO HS Sleep #0 tabs 10/01/24 11/16/24 11/16/24 Rx
aluminum-mag hydroxide-simethicone 15 ml PO BIDPRN PRN stomach issuses 11/16/24 11/16/24 Unknown History
200 mg-200 mg-20 mg/5 mL oral susp
(Iris-Lanta)
dextromethorphan-guaifenesin 10 10 ml PO Q6HPRN PRN cough 11/16/24 11/16/24 11/16/24 History
mg-100 mg/5 mL oral liquid
(Guaiasorb DM)
doxycycline hyclate 100 mg tablet 100 mg PO BID Infection 11/16/24 11/16/24 11/16/24 History
fluoxetine 20 mg tablet 20 mg PO DAILY Mental 11/16/24 11/16/24 11/16/24 History
Health/Anxiety
magnesium hydroxide 400 mg/5 mL 2,400 mg PO DAILYPRN PRN 11/16/24 11/16/24 Unknown History
oral suspension (Milk of Magnesia) constipation
Review of Systems
-
Hematologic/Lymphatic: Other (All 14 systems reviewed and negative except as stated above in the history of present illness. Patient is somewhat poor historian)
Vitals / Labs / Diagnostic Testing
Vital Signs
Temp Pulse Resp BP Pulse Ox
100.3 F 108 43 177/94 93
11/18/24 11:08 11/18/24 10:00 11/18/24 10:00 11/18/24 10:00 11/18/24 10:00
Lab Data
11/18/24 05:06
11/18/24 05:06
Laboratory Results
11/18/24
11:20
pH 7.44
pCO2 51 H
pO2 81 L
HCO3 34.6 H
O2 Delivery Level
Microbiology
11/17/24 05:22 Nose MRSA Screen - Final
No Methicillin Resistant Staphylococcus aureus isolated.
11/16/24 20:58 Blood/Venous Blood Culture - Preliminary
No Growth in 24 hours- Final report to follow
11/16/24 20:58 Blood/Venous Blood Culture - Preliminary
No Growth in 24 hours- Final report to follow
11/17/24 05:22 Urine Legionella Urinary Antigen - Final
Negative for Legionella pneumophila Serogroup 1 antigen.
A negative result does not rule out the possiblity of
Legionella infection due to other serogroups or species of
Legionella. Clinical correlation is recommended.
11/17/24 05:22 Urine Streptococcus pneumoniae Antigen (M - Final
Negative for Streptococcus pneumoniae antigen.
A negative result does not exclude infection with
Streptococcus pneumoniae. Clinical correlation is
recommended.
11/16/24 21:33 Nasal Swab Influenza Types A & B (SUSHANT) - Final
Negative for Influenza A & B, NAAT
Negative results must be combined with clinical observations
and patient history.
Nucleic Acid Amplification test (NAAT)performed on the
Plink platform.
Diagnostic Testing:
Physical Exam
-
HEENT: Normocephalic
Cardiovascular: S1/S2
Respiratory: Rhonchi and Non-Labored Respirations
GI: Soft and Non Distended
Neurology: Awake and Alert
Skin: Warm and Dry
General: Comfortable
Assessment
-
#1. Acute on chronic hypoxic respiratory failure with pneumonia
- Patient currently saturating 92% on 12 L supplemental oxygen with respiratory rate in the low to mid 30s. Patient uses 2 L supplemental oxygen at home at baseline
- Stat ABG reviewed, pO2 81, wide A-a gap, switch to high flow nasal oxygen
- Add IV Solu-Medrol 40 mg daily for 5 days considering the severity of pneumonia and associated hypoxic respiratory failure
- MRSA screen negative, also negative Legionella and streptococcal antigen. Influenza A, B, COVID-19 screen negative. Blood cultures have stayed negative so far
- Currently on ceftriaxone and doxycycline, WBC count improving, 12.8 now compared to 17.3 on admission
- F/u CXR in AM
- Check BNP, if elevated will transition PO Lasix to IV instead
- Incentive spirometry, sit in chair as tolerated. Suspect atelectasis with her body habitus also adding to hypoxia
#2. Chronic hypercapnic respiratory failure with underlying sleep apnea
- Patient declines BiPAP
- Arterial blood gas reviewed, pCO2 of 51 within normal pH, consistent with compensated hypercapnia
#3. H/o COPD/Asthma overlap
- Currently patient does not seem to have active wheezing
-No prior history of smoking however patient has secondhand smoke exposure as a child.
- Continue Symbicort as prescribed, also has been on theophylline.
- Continue as needed DuoNeb.
- Steroid added for the severity of underlying pneumonia
#4. Chronic restrictive lung disease
- Post�bronchodilator FVC: 69% / 2.04 L via spirometry on 12/12/2020
- Suspect restriction related to underlying obesity. Needs full pulmonary function testing including lung volumes, diffusion capacity assessment as well as 6-minute walk test as outpatient
#5. Pulmonary nodules.
- CT chest reviewed from January 2024, multiple 1 to 2 mm nodules, stable since 2022 suggestive of benign etiology. No prior history of smoking
- Needs outpatient follow-up with pulmonary service
Patient was seen at [facility] pulmonary clinic in 2020, has not followed up since. Will recommend outpatient follow-up after discharge
Other medical diagnoses:
- Hypertension
- Diabetes type 2
- Obesity, BMI 36.9
- History of bipolar disorder/schizophrenia
- Heart failure with preserved ejection fraction, on p.o. Lasix
- History of respiratory failure requiring prolonged intubation in February 2024.
Total time spent on this consultation/encounter __82__ minutes which includes review of history, physical exam, medications, laboratory data, personal review of imaging, extensive review of outpatient records, discussion with care team and
respiratory therapy.
Data:
CXR 11/2024: Some suspected patchy bilateral perihilar opacities which could represent pneumonitis.
Pulmonary vascularity at least top normal.
ECHO 01/2024: Normal left ventricular size, wall thickness and systolic function.
LV ejection fraction is 60-65% by visual estimation.
Normal right ventricular size and function.
Mild aortic stenosis.
Estimated pulmonary artery pressure of 38 mmHg assuming a right atrial pressure
of 3 mmHg.
Compared to prior from February 12, 2022, mild aortic stenosis is seen.
--- NOTE | 2024-11-18 14:03 | PTCARENOTE ---
Rec'd pt this AM, tearful and uncooperative. Upset that her tray was cardboard. Stating she would not take her meds or eat her breakfast. Visibily upset but unable to articulate the cause. RN provided support and spoke in a calm and positive manner.
Pt slowly began to have a less depressed affect and was more positive about the plan of care for the day. She had initially refused to get OOB but after much encouragement, she took all her meds, ate her meal and got OOB with PT. Pt walked with
rolling walker and is now OOB and to bSC with min assist. remains on 1:1. On 12L MF, O2 sat 94-96%
--- NOTE | 2024-11-18 15:19 | CON.MD ---
Consultation - Medical
-
patiebt seen chart reviewed. discussed with nursing . this consult done today november 18 2024. the patient is a 64 year old woman very well known to this technical writer from prior admits to . she was last seen by me a little over a year ago. she has hx
schizoaffective disorder . she resides at [facility]. her affect can be quite labile when she is upset or frustrated. i am told by nursing she was upset last evening when she did not get her evening meds when she wanted them and she cut herself with
the top of a soda can. she was placed on one to one. when i saw her today she was the most pleasant i have seen her and was able to talk to me to the extent that she is able. (it is sometimes hard to understand her speech). she said she does not
feel well physically although she wishes she could be dc back to home although [facility] is not to her a great place to live (there are not alternatives). her current meds include zyprexa 15 mg dailiy prozac 20 mg daily klonopin 1.5 mg q hs
depakote 1000 mg q hs. she was admitted to with shortness of breath and was found to have pneumonia. she is currently requiring according to nsg 12 l o2.
past psych hx patient has had many psych admits. she believes the last was about a year ago. [facility] being [facility]ed to a care home. she has hx self injurious behavior (last night) and aggression towards
others when she is angry or frustrated. she is currently on one to one
substance abuse none
medical hx patient has pneumonia cxr pneumonitis hx iddm hypothyroid htn copd o2 dependent even without pneumonia gerd gout chf multiple med allergies wbc high mild anemia glucose elevated bun high cultures neg so far
family hx non contributory
social resides at [facility]
mse alert and oriented x3 at this point fairly pleasant and cooperative mood is okay but can be easily irritated no psychosis no si affect constricted intelligence ?borderline insight judgment lacking
dx schizoaffective disorder
plan for now continue one to one if she is still doing well tomorrow will dc continue meds as currently. moved hs to eight pm. would check depakote level and tsh reflex to t4 will check in w her tomorrow.
[2024-11-18 16:58] LABS: Glucose - Point of Care 191 mg/dl (70-99)
[2024-11-18] MEDS: NOVOLOG FLEXPEN 9 UNITS SC (17:53)
[2024-11-18] MEDS: NOVOLIN N vial 0.12 UNITS SC (17:54)
[2024-11-18] MEDS: LOVENOX 40 MG SC (17:54)
[2024-11-18] MEDS: ZYPREXA 15 MG PO (19:52)
[2024-11-18] MEDS: MELATONIN 5 MG PO (19:52)
[2024-11-18] MEDS: KLONOPIN 1.5 MG PO (19:52)
[2024-11-18] MEDS: LIPITOR 20 MG PO (19:53)
[2024-11-18] MEDS: DEPAKOTE ER (24 HR RELEASE) 1000 MG PO (19:53)
[2024-11-18 22:01] LABS: Glucose - Point of Care 201 mg/dl (70-99)
[2024-11-19] VITALS (20 sets, daily range): BP systolic 89–200; BP diastolic 67–107; PULSE 86–90; BMI 37.7
[2024-11-19 04:29] LABS: Hematocrit 35.0 % (37.0-47.0); Hemoglobin 12.1 g/dL (12.0-16.0); Mean Corp Hgb Conc. 34.6 g/dL (33.0-37.0); Mean Corpuscular Volume 108.4 fL (81.0-99.0); Platelet Count 249 10^3/uL (130-400); Red Cell Dist. Width 13.5 % (11.5-14.5)
--- NOTE | 2024-11-19 04:50 | PTCARENOTE ---
Caring for pt overnight. aaox3 pleasant, forgetful. NSR. Remains on 12LMF. No complaints of pain or SOB. Took pills whole with water, no issues. Safety measures in place. Pt slept throughout the night. cpap hs. VSS. Will monitor
[2024-11-19 04:53] LABS: Blood Urea Nitrogen 43 mg/dl (7-17); Calcium 9.7 mg/dl (8.4-10.2); Carbon Dioxide 33 mmol/L (22-30); Chloride 102 mmol/L (98-107); Estimated Creatinine Clearance 72 ml/min; Glucose 143 mg/dl (70-99); Potassium 4.1 mmol/L (3.5-5.1); Sodium 142 mmol/L (135-145); eGFR > 60.00
[2024-11-19 05:19] LABS: Depakane 74.6 ug/ml (50.0-120.0)
[2024-11-19] MEDS: SYNTHROID 100 MCG PO (05:21)
[2024-11-19] MEDS: STERILE WATER FOR INJECTION 10 ML IV (05:21)
[2024-11-19] MEDS: ROCEPHIN 1000 MG IV (05:21)
[2024-11-19] MEDS: SYMBICORT 80/4.5 MCG INHALER 2 PUFF INH ×2 (07:32→20:40)
[2024-11-19 07:39] LABS: Glucose - Point of Care 145 mg/dl (70-99)
[2024-11-19 07:45] LABS: Glycohemoglobin (HgbA1c) 7.5 % (4.0-5.6)
[2024-11-19] MEDS: NOVOLOG FLEXPEN 9 UNITS SC (08:16)
[2024-11-19] MEDS: NOVOLOG FLEXPEN-MODERATE RESISTANCE SC (08:18)
[2024-11-19] MEDS: COLACE 100 MG PO ×2 (08:19→19:59)
[2024-11-19] MEDS: FARXIGA 10 MG PO (08:19)
[2024-11-19] MEDS: LANTUS 0.25 UNITS SC (08:20)
[2024-11-19] MEDS: LASIX 40 MG PO (08:22)
[2024-11-19] MEDS: MUCINEX 600 MG PO ×2 (08:22→19:58)
[2024-11-19] MEDS: MIRALAX 17 GRAMS PO ×2 (08:22→20:00)
[2024-11-19] MEDS: PROTONIX 40 MG PO (08:23)
[2024-11-19] MEDS: NORVASC 10 MG PO (08:23)
[2024-11-19] MEDS: PROZAC 20 MG PO (08:23)
[2024-11-19] MEDS: SOLU-MEDROL PF 40 MG IV (08:24)
[2024-11-19] MEDS: VIBRAMYCIN 100 MG PO (08:25)
[2024-11-19] MEDS: VALTREX 1000 MG PO ×2 (08:25→19:58)
[2024-11-19] MEDS: ZETIA 10 MG PO (08:25)
[2024-11-19] MEDS: ZYLOPRIM 300 MG PO (08:25)
[2024-11-19] MEDS: THEO DUR 300 MG PO (08:26)
--- NOTE | 2024-11-19 09:30 | W.PN.HOSP.TC ---
Today's Communication/Plan
-
see bold
Assessment / Plan
Assessment / Plan
HPI: 64y F with PMH significant for Bipolar / schizophrenia, hypertension and DM who presents to ED from local facility for evaluation of cough and SOB. Patient reports cough and malaise for about one week. She is chronically on 2 lpm of O2 at
home. Patient was started on doxycycline earlier today (one dose thus far) but was sent to the ED for worsening SOB.
#Sepsis
#Pneumonia
WBC 17.3, Neut 77.8, CO2 34, BUN 26, AST 106, ALT 122
CXR: Some suspected patchy bilateral perihilar opacities which could represent pneumonitis.
Pulmonary vascularity at least top normal.
Urine Legionella/strep antigens negative, COVID/flu negative
Continue Rocephin/doxycycline day 4, follow-up blood cultures
Trend fever and white count
#Acute on chronic hypoxic respiratory failure
#History of COPD/asthma
Currently requiring 12 L of oxygen wean as tolerated. She wears 2 L at baseline
Appreciate pulmonology input, started on Solu-Medrol 11/18
Continue bronchodilators, theophylline
#Pleuritic chest pain
Due to pneumonia
Troponin negative
#Constipation
Start laxatives
#Bipolar disorder/schizophrenia
#Cutting her thumbs on a soda can 11/17
Continue Klonopin, Depakote, Prozac, Zyprexa
Psychiatry consulted, Depakote level & TSH acceptable
#Essential hypertension
Increased amlodipine to 10 mg daily
#Type 2 diabetes
Hgb A1c 7.5, increased home Lantus 25 units daily
Increased NovoLog 12 units AC 3 times daily
#Obstructive sleep apnea
Noncompliant with her CPAP per report
#Obesity due to excess calories
Affects all aspects of care
DVT prophylaxis�Lovenox
Full code
[facility]
Total time spent to see the patient on the floor, examine the patient, review data and lab results, discuss treatment plan with patient, nursing staff around 42 minutes.
Physical Exam
General: Obese, no acute distress
HEENT: Normocephalic, Atraumatic, EOMI, MMM
Respiratory: Severely diminished breath sounds at the bases with right basilar crackles
Cardiac: Normal S1/S2, Regular Rate and Rhythm
GI: Soft, Nontender, Nondistended, Normal Bowel Sounds
Extremities: No Clubbing, Cyanosis, or Edema
Neuro: Nonfocal/Grossly Intact
Psych: Calm, Cooperative
Derm: Laceration on bilateral thumbs are dressed
Anticipated Discharge: > 48 hours
Subjective/Interval History
-
Date of Service: November 19, 2024
Patient continues to have a cough and shortness of breath, improved from admission. No fever, no vomiting. She complains of constipation.
Objective Data
-
Labs:
Laboratory Results
11/19/24
04:18
WBC 10.3
Hgb 12.1
Hct 35.0 L
Plt Count 249
Sodium 142
Potassium 4.1
Chloride 102
Carbon Dioxide 33 H
BUN 43 H
Creatinine 0.8
Glucose 143 H
Calcium 9.7
Vital Signs:
Vital Signs
Temp Pulse Resp BP Pulse Ox
97.4 F 88 19 156/80 93
11/19/24 07:36 11/19/24 08:23 11/19/24 07:34 11/19/24 08:23 11/19/24 07:34
I&O
11/18/24 11/19/24 11/20/24
06:59 06:59 06:59
Intake Total 490 / 490 860 / 860
Output Total 2150 / 2150 1950 / 1950
Balance -1660 / -1660 -1090 / -1090
--- NOTE | 2024-11-19 11:11 | W.PN.PUL3 ---
Today's Communication / Plan
-
- Wean oxygen as tolerated
- Continue incentive spirometry, sit in chair as tolerated, increase activity
- Continue current antibiotics and steroids
Assessment
-
Patient is a 64 old female with known history of underlying schizophrenia and bipolar disorder with COPD asthma overlap syndrome along with untreated obstructive sleep apnea and obesity who was admitted to the hospital on 11/16 with increasing
shortness of breath. Patient was noted to be febrile along with evidence of pneumonia and was started on antibiotic and supplemental oxygen. Patient is chronically on 2 L oxygen at home and was having dry cough going on for about a week's time.
Patient has been on antibiotics and currently requiring 12 L supplemental oxygen and saturating about 92%. Pulmonary consultation was requested for further input.
#1. Acute on chronic hypoxic respiratory failure with pneumonia
- Patient currently saturating 91-92% on 12 L supplemental oxygen with respiratory rate improved in the mid 20s. Clinically reports feeling less short of breath
- ABG reviewed, pO2 81, wide A-a gap. Low threshold to switch to high flow nasal cannula as needed
- Continue IV Solu-Medrol 40 mg daily for 5 days considering the severity of pneumonia and associated hypoxic respiratory failure
- MRSA screen negative, also negative Legionella and streptococcal antigen. Influenza A, B, COVID-19 screen negative. Blood cultures have stayed negative so far
- Currently on ceftriaxone and doxycycline, WBC count improving, 10.3 now compared to 17.3 on admission
- F/u CXR stable.
- Incentive spirometry, sit in chair as tolerated. Suspect atelectasis with her body habitus also adding to hypoxia. Patient barely able to pull in 500 mL volume on spirometry. Poor respiratory reserve
#2. Chronic hypercapnic respiratory failure with underlying sleep apnea
- Patient declines BiPAP
- Arterial blood gas reviewed, pCO2 of 51 within normal pH, consistent with compensated hypercapnia
#3. H/o COPD/Asthma overlap
- Currently patient does not seem to have active wheezing
- No prior history of smoking however patient has secondhand smoke exposure as a child.
- Continue Symbicort as prescribed, also has been on theophylline.
- Continue as needed DuoNeb.
- Steroid added for the severity of underlying pneumonia
#4. Chronic restrictive lung disease
- Post�bronchodilator FVC: 69% / 2.04 L via spirometry on 12/12/2020
- Suspect restriction related to underlying obesity. Needs full pulmonary function testing including lung volumes, diffusion capacity assessment as well as 6-minute walk test as outpatient
#5. Pulmonary nodules.
- CT chest reviewed from January 2024, multiple 1 to 2 mm nodules, stable since 2022 suggestive of benign etiology. No prior history of smoking
- Needs outpatient follow-up with pulmonary service
Patient was seen at [facility] pulmonary [facility] in 2020, has not followed up since. Will recommend outpatient follow-up after discharge
Other medical diagnoses:
- Hypertension
- Diabetes type 2
- Obesity, BMI 36.9
- History of bipolar disorder/schizophrenia
- Heart failure with preserved ejection fraction, on p.o. Lasix
- History of respiratory failure requiring prolonged intubation in February 2024.
Total time spent on this consultation/encounter __46__ minutes which includes review of history, physical exam, medications, laboratory data, personal review of imaging, extensive review of outpatient records, discussion with care team and
respiratory therapy.
Data:
CXR 11/2024: Some suspected patchy bilateral perihilar opacities which could represent pneumonitis.
Pulmonary vascularity at least top normal.
ECHO 01/2024: Normal left ventricular size, wall thickness and systolic function.
LV ejection fraction is 60-65% by visual estimation.
Normal right ventricular size and function.
Mild aortic stenosis.
Estimated pulmonary artery pressure of 38 mmHg assuming a right atrial pressure
of 3 mmHg.
Compared to prior from February 12, 2022, mild aortic stenosis is seen.
Subjective Data
-
Date of Service:
Date of Service: November 19, 2024
Subjective:
Patient comfortably sitting in chair, on supplemental oxygen, reports feeling marginally better
Review of Systems
Genitourinary: Other (No new pulmonary symptoms reported)
Objective Data
Data Reviewed
Vital Signs / I&O / Oxygen:
Vital Signs
Temp Pulse Resp BP Pulse Ox
97.4 F 99 18 142/107 90
11/19/24 07:36 11/19/24 10:06 11/19/24 10:06 11/19/24 10:06 11/19/24 10:06
Intake and Output
11/18/24 11/19/24 11/20/24
06:59 06:59 06:59
Intake Total 490 / 490 860 / 860
Output Total 2150 / 2150 1950 / 1950
Balance -1660 / -1660 -1090 / -1090
SaO2 90
Nasal Cannula flow liters per 12
minute
Physical Exam
General: Comfortable
HEENT: Normocephalic
Cardiovascular: S1-S2
Respiratory: Rhonchi and Other (Improving bilateral air entry)
GI: Soft and Non Distended
Neurology: Awake and Alert
Skin: Warm
Labs/Micro/Reports
Lab Data
11/19/24 04:18
11/19/24 04:18
Laboratory Results
11/18/24
11:20
pH 7.44
pCO2 51 H
pO2 81 L
HCO3 34.6 H
O2 Delivery Level
Microbiology
11/16/24 20:58 Blood/Venous Blood Culture - Preliminary
No Growth in 48 hours- Final report to follow
11/16/24 20:58 Blood/Venous Blood Culture - Preliminary
No Growth in 48 hours- Final report to follow
11/17/24 05:22 Nose MRSA Screen - Final
No Methicillin Resistant Staphylococcus aureus isolated.
11/17/24 05:22 Urine Legionella Urinary Antigen - Final
Negative for Legionella pneumophila Serogroup 1 antigen.
A negative result does not rule out the possiblity of
Legionella infection due to other serogroups or species of
Legionella. Clinical correlation is recommended.
11/17/24 05:22 Urine Streptococcus pneumoniae Antigen (M - Final
Negative for Streptococcus pneumoniae antigen.
A negative result does not exclude infection with
Streptococcus pneumoniae. Clinical correlation is
recommended.
11/16/24 21:33 Nasal Swab Influenza Types A & B (S[facility]ANT) - Final
Negative for Influenza A & B, NAAT
Negative results must be combined with clinical observations
and patient history.
Nucleic Acid Amplification test (NAAT)performed on the
[employer] platform.
--- NOTE | 2024-11-19 11:15 | CM ---
Following up on Patient. RN stated that patient has been behaving well, should come off the 1:1, used CPAP last night, but still on 12 liters. Patient is normally on 2 liters at home, not CPAP as it is broken, but unsure of her compliance with her
respiratory devices. Therefore, Medical Attending will be working on this.
PLAN: Return to [facility] w/ new CPAP or not.
[2024-11-19 11:30] LABS: Glucose - Point of Care 299 mg/dl (70-99)
[2024-11-19] MEDS: MILK OF MAGNESIA 30 ML PO (11:46)
[2024-11-19] MEDS: NOVOLOG FLEXPEN-MODERATE RESISTANCE 5 UNITS SC (11:47)
[2024-11-19] MEDS: SENOKOT-S 2 TABLET PO ×2 (11:47→19:58)
[2024-11-19] MEDS: NOVOLOG FLEXPEN 12 UNITS SC ×2 (11:52→17:10)
--- NOTE | 2024-11-19 15:02 | W.PN.UPDATE ---
Update Note
Progress Note Update
patient seen chart reviewed. patient states she is feeling better today and physically she did appear improved. she was happy to see staff from [facility] who brought her a bag of activities...coloring books etc etc. i commented to her that of
all the times i have seen her at today she seems in the best of spirits despite her illness. she agreed. depakote level in the 70's continues with prozac seroquel and klonomelvin did not make any changes. she asked me if we could dc one to one
as she felt calm. will do . will see her in the am.
[2024-11-19] MEDS: TYLENOL 650 MG PO (15:04)
--- NOTE | 2024-11-19 15:51 | PTCARENOTE ---
Rec'd pt thsi AM, calm, cooperative. remains on 12L MF with desaturation occurring with ambulation. OOB to chair most of the day, coloring and writing in her journal. Dr. Sai murphy 1:1 observation.
[2024-11-19 16:34] LABS: Glucose - Point of Care 314 mg/dl (70-99)
[2024-11-19] MEDS: NOVOLOG FLEXPEN-MODERATE RESISTANCE 7 UNITS SC (17:10)
[2024-11-19] MEDS: LOVENOX 40 MG SC (17:10)
[2024-11-19] MEDS: DEPAKOTE ER (24 HR RELEASE) 1000 MG PO (19:58)
[2024-11-19] MEDS: MELATONIN 5 MG PO (19:58)
[2024-11-19] MEDS: ZYPREXA 15 MG PO (19:59)
[2024-11-19] MEDS: KLONOPIN 1.5 MG PO (19:59)
[2024-11-19] MEDS: LIPITOR 20 MG PO (19:59)
[2024-11-19 21:17] LABS: Glucose - Point of Care 189 mg/dl (70-99)
[2024-11-20] VITALS (12 sets, daily range): BP systolic 139–167; BP diastolic 62–112; PULSE 84–98; O2SAT 90–94; BMI 37.4
--- NOTE | 2024-11-20 03:08 | PTCARENOTE ---
Caring for pt overnight. aaox3, very pleasant, smiling, talking with staff. NSR on monitor. Remained on 12LMF & cpap hs. Pt sleeping througout night. Took all pills with water, no issues. Denies pain. No SOB noted. OOB during day for day shift. NO
BM overnight. Bp running high but trending down. Will monitor.
[2024-11-20] MEDS: ROCEPHIN 1000 MG IV (05:30)
[2024-11-20] MEDS: SYNTHROID 100 MCG PO (05:30)
[2024-11-20] MEDS: STERILE WATER FOR INJECTION 10 ML IV (05:30)
[2024-11-20 07:06] LABS: Glucose - Point of Care 135 mg/dl (70-99)
[2024-11-20] MEDS: SYMBICORT 80/4.5 MCG INHALER 2 PUFF INH ×2 (07:21→19:45)
[2024-11-20] MEDS: NOVOLOG FLEXPEN-MODERATE RESISTANCE SC (07:35)
[2024-11-20] MEDS: SOLU-MEDROL PF 40 MG IV (08:08)
[2024-11-20] MEDS: VALTREX 1000 MG PO ×2 (08:09→19:14)
[2024-11-20] MEDS: MIRALAX 17 GRAMS PO ×2 (08:09→19:15)
[2024-11-20] MEDS: THEO DUR 300 MG PO (08:09)
[2024-11-20] MEDS: FARXIGA 10 MG PO (08:10)
[2024-11-20] MEDS: PROTONIX 40 MG PO (08:10)
[2024-11-20] MEDS: LASIX 40 MG PO (08:10)
[2024-11-20] MEDS: ZETIA 10 MG PO (08:10)
[2024-11-20] MEDS: PROZAC 20 MG PO (08:10)
[2024-11-20] MEDS: MUCINEX 600 MG PO ×2 (08:10→19:14)
[2024-11-20] MEDS: SENOKOT-S 2 TABLET PO ×2 (08:10→19:14)
[2024-11-20] MEDS: ZYLOPRIM 300 MG PO (08:10)
[2024-11-20] MEDS: NORVASC 10 MG PO (08:11)
[2024-11-20] MEDS: NOVOLOG FLEXPEN 12 UNITS SC ×2 (08:29→12:40)
[2024-11-20] MEDS: LANTUS 0.25 UNITS SC (08:29)
--- NOTE | 2024-11-20 09:27 | PTCARENOTE ---
Patient received from maintenance technician 2nd shift. Patient resting comfortably in bed. AAO, VSS. No events noted overnight. No complaints of pain at this time. Currently on `12L N/C to keep sat >92, will try to wean as tolerated. OOB to chair again today.
PT/OT to see patient today. No fluids through IV. No testing scheduled at this time. Call azevedo in reach.
--- NOTE | 2024-11-20 09:52 | W.PN.HOSP.TC ---
Today's Communication/Plan
-
see bold
Assessment / Plan
Assessment / Plan
HPI: 64y F with PMH significant for Bipolar / schizophrenia, hypertension and DM who presents to ED from local facility for evaluation of cough and SOB. Patient reports cough and malaise for about one week. She is chronically on 2 lpm of O2 at
home. Patient was started on doxycycline earlier today (one dose thus far) but was sent to the ED for worsening SOB.
#Sepsis
#Pneumonia
WBC 17.3, Neut 77.8, CO2 34, BUN 26, AST 106, ALT 122
CXR: Some suspected patchy bilateral perihilar opacities which could represent pneumonitis.
Pulmonary vascularity at least top normal.
Urine Legionella/strep antigens negative, COVID/flu negative, blood cx NTD
Continue Rocephin/doxycycline day 5, follow-up blood cultures
Trend fever and white count
#Acute on chronic hypoxic respiratory failure
#History of COPD/asthma
Currently requiring 12 L of oxygen wean as tolerated. She wears 2 L at baseline
Appreciate pulmonology input, started on Solu-Medrol 11/18
Continue bronchodilators, theophylline
#Pleuritic chest pain
Due to pneumonia
Troponin negative
#Constipation
Continue laxatives
#Bipolar disorder/schizophrenia
#Cutting her thumbs on a soda can 11/17
Continue Klonopin, Depakote, Prozac, Zyprexa
Psychiatry consulted, Depakote level & TSH acceptable
#Essential hypertension
Increased amlodipine to 10 mg daily
#Type 2 diabetes with steroid-induced hyperglycemia
Hgb A1c 7.5, increased home Lantus 25 units daily
Increased NovoLog 15 units AC 3 times daily
#Obstructive sleep apnea
Noncompliant with her CPAP per report
#Obesity due to excess calories
Affects all aspects of care
DVT prophylaxis�Lovenox
Full code
[facility]
Total time spent to see the patient on the floor, examine the patient, review data and lab results, discuss treatment plan with patient, nursing staff around 40 minutes.
Physical Exam
General: Obese, no acute distress
HEENT: Normocephalic, Atraumatic, EOMI, MMM
Respiratory: Severely diminished breath sounds at the bases with right basilar crackles
Cardiac: Normal S1/S2, Regular Rate and Rhythm
GI: Soft, Nontender, Nondistended, Normal Bowel Sounds
Extremities: No Clubbing, Cyanosis, or Edema
Neuro: Nonfocal/Grossly Intact
Psych: Calm, Cooperative
Derm: Laceration on bilateral thumbs are dressed
Anticipated Discharge: > 48 hours
Subjective/Interval History
-
Date of Service: November 20, 2024
SOB resolved. Had BM. Continues to have a cough. No fever, no vomiting.
Objective Data
-
Vital Signs:
Vital Signs
Temp Pulse Resp BP Pulse Ox
97.8 F 84 23 167/92 97
11/20/24 08:19 11/20/24 08:10 11/20/24 07:24 11/20/24 08:10 11/20/24 07:24
I&O
11/19/24 11/20/24 11/21/24
06:59 06:59 06:59
Intake Total 860 / 860 1680 / 1680
Output Total 1950 / 1950 300 / 300
Balance -1090 / -1090 1380 / 1380
--- NOTE | 2024-11-20 10:03 | CM ---
Following up on Patient
RN stated that patient, today, is still on oxygen at 12 liters & used CPAP again last night. Patient is getting steroids everyday so far. Case Management to follow as patient is still not ready and most likely will not discharge this weekend.
PLAN: Return to [facility] with VN/ reordered CPAP vs. SNF
[2024-11-20] MEDS: COLACE PO (10:15)
--- NOTE | 2024-11-20 10:29 | W.PN.PUL3 ---
Today's Communication / Plan
-
- Continue IV Solu-Medrol for total of 5 days
- Wean oxygen as tolerated
- Continue current antibiotics, follow-up on cultures
- Incentive spirometry, sit in chair as tolerated, increase activity
- PT/OT
Assessment
-
Patient is a 64 old female with known history of underlying schizophrenia and bipolar disorder with COPD asthma overlap syndrome along with untreated obstructive sleep apnea and obesity who was admitted to the hospital on 11/16 with increasing
shortness of breath. Patient was noted to be febrile along with evidence of pneumonia and was started on antibiotic and supplemental oxygen. Patient is chronically on 2 L oxygen at home and was having dry cough going on for about a week's time.
Patient has been on antibiotics and currently requiring 12 L supplemental oxygen and saturating about 92%. Pulmonary consultation was requested for further input.
#1. Acute on chronic hypoxic respiratory failure with pneumonia
- Clinically and radiologically improving. Dyspnea significantly improved, still needing significant supplemental oxygen however
- Patient currently saturating 93% on 12 L supplemental oxygen with respiratory rate improved in the mid 20s now. Reports improving dyspnea
- 11/18, ABG reviewed, pO2 81, wide A-a gap. Low threshold to switch to high flow nasal cannula as needed
- Continue IV Solu-Medrol 40 mg daily for 5 days considering the severity of pneumonia and associated hypoxic respiratory failure
- MRSA screen negative, also negative Legionella and streptococcal antigen. Influenza A, B, COVID-19 screen negative. Blood cultures have stayed negative so far
- Currently on ceftriaxone and doxycycline, WBC count improving, 10.3 now compared to 17.3 on admission
- F/u CXR improving
- Incentive spirometry, sit in chair as tolerated. Suspect atelectasis with her body habitus also adding to hypoxia. Poor respiratory reserve
#2. Chronic hypercapnic respiratory failure with underlying sleep apnea
- Patient declines BiPAP
- Arterial blood gas reviewed, pCO2 of 51 within normal pH, consistent with compensated hypercapnia. No mental status changes noted
#3. H/o COPD/Asthma overlap
- Currently patient does not seem to have active wheezing
- No prior history of smoking however patient has secondhand smoke exposure as a child.
- Continue Symbicort as prescribed, also has been on theophylline chronically.
- Continue as needed DuoNeb.
- Steroid added for the severity of underlying pneumonia
#4. Chronic restrictive lung disease
- Post�bronchodilator FVC: 69% / 2.04 L via spirometry on 12/12/2020
- Suspect restriction related to underlying obesity. Needs full pulmonary function testing including lung volumes, diffusion capacity assessment as well as 6-minute walk test as outpatient
#5. Pulmonary nodules.
- CT chest reviewed from January 2024, multiple 1 to 2 mm nodules, stable since 2022 suggestive of benign etiology. No prior history of smoking
- Needs outpatient follow-up with pulmonary service
Patient was seen at [facility] pulmonary clinic in 2020, has not followed up since. Will recommend outpatient follow-up after discharge
Other medical diagnoses:
- Hypertension
- Diabetes type 2
- Obesity, BMI 36.9
- History of bipolar disorder/schizophrenia
- Heart failure with preserved ejection fraction, on p.o. Lasix
- History of respiratory failure requiring prolonged intubation in February 2024.
Total time spent on this consultation/encounter __42__ minutes which includes review of history, physical exam, medications, laboratory data, personal review of imaging, extensive review of outpatient records, discussion with care team and
respiratory therapy.
Data:
CXR 11/2024: Some suspected patchy bilateral perihilar opacities which could represent pneumonitis.
Pulmonary vascularity at least top normal.
ECHO 01/2024: Normal left ventricular size, wall thickness and systolic function.
LV ejection fraction is 60-65% by visual estimation.
Normal right ventricular size and function.
Mild aortic stenosis.
Estimated pulmonary artery pressure of 38 mmHg assuming a right atrial pressure
of 3 mmHg.
Compared to prior from February 12, 2022, mild aortic stenosis is seen.
Subjective Data
-
Date of Service:
Date of Service: November 20, 2024
Subjective:
Patient comfortably sitting in bed in no acute distress. Reports overall feeling better.
Review of Systems
Genitourinary: Other (No new pulmonary symptoms reported.)
Objective Data
Data Reviewed
Vital Signs / I&O / Oxygen:
Vital Signs
Temp Pulse Resp BP Pulse Ox
97.8 F 84 23 167/92 97
11/20/24 08:19 11/20/24 08:10 11/20/24 07:24 11/20/24 08:10 11/20/24 07:24
Intake and Output
11/19/24 11/20/24 11/21/24
06:59 06:59 06:59
Intake Total 860 / 860 1680 / 1680
Output Total 1950 / 1950 300 / 300
Balance -1090 / -1090 1380 / 1380
SaO2 97
Nasal Cannula flow liters per 12
minute
Physical Exam
General: Comfortable
HEENT: Normocephalic
Cardiovascular: S1-S2
Respiratory: Clear and Other (Improving bilateral air entry)
GI: Soft and Non Distended
Neurology: Awake and Alert
Skin: Warm
Labs/Micro/Reports
Lab Data
11/19/24 04:18
11/19/24 04:18
Microbiology
11/16/24 20:58 Blood/Venous Blood Culture - Preliminary
No Growth in 72 hours- Final report to follow
11/16/24 20:58 Blood/Venous Blood Culture - Preliminary
No Growth in 72 hours- Final report to follow
11/17/24 05:22 Nose MRSA Screen - Final
No Methicillin Resistant Staphylococcus aureus isolated.
11/17/24 05:22 Urine Legionella Urinary Antigen - Final
Negative for Legionella pneumophila Serogroup 1 antigen.
A negative result does not rule out the possiblity of
Legionella infection due to other serogroups or species of
Legionella. Clinical correlation is recommended.
11/17/24 05:22 Urine Streptococcus pneumoniae Antigen (M - Final
Negative for Streptococcus pneumoniae antigen.
A negative result does not exclude infection with
Streptococcus pneumoniae. Clinical correlation is
recommended.
[2024-11-20 12:07] LABS: Glucose - Point of Care 234 mg/dl (70-99)
[2024-11-20] MEDS: NOVOLOG FLEXPEN-MODERATE RESISTANCE 3 UNITS SC (12:39)
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
[2024-11-20] MEDS: NOVOLOG FLEXPEN 15 UNITS SC (16:43)
[2024-11-20] MEDS: NOVOLOG FLEXPEN-MODERATE RESISTANCE 1 UNITS SC (16:43)
[2024-11-20 16:52] LABS: Glucose - Point of Care 192 mg/dl (70-99)
[2024-11-20] MEDS: LOVENOX 40 MG SC (17:04)
[2024-11-20] MEDS: KLONOPIN 1.5 MG PO (19:14)
[2024-11-20] MEDS: LIPITOR 20 MG PO (19:14)
[2024-11-20] MEDS: VIBRAMYCIN 100 MG PO (19:14)
[2024-11-20] MEDS: MELATONIN 5 MG PO (19:15)
[2024-11-20] MEDS: DEPAKOTE ER (24 HR RELEASE) 1000 MG PO (19:15)
[2024-11-20] MEDS: ZYPREXA 15 MG PO (19:15)
[2024-11-20 21:25] LABS: Glucose - Point of Care 216 mg/dl (70-99)
[2024-11-21] VITALS (13 sets, daily range): BP systolic 131–166; BP diastolic 75–100; PULSE 80–88; BMI 36.9
[2024-11-21 03:48] LABS: Hematocrit 35.8 % (37.0-47.0); Hemoglobin 11.9 g/dL (12.0-16.0); Mean Corp Hgb Conc. 33.2 g/dL (33.0-37.0); Mean Corpuscular Volume 106.9 fL (81.0-99.0); Platelet Count 242 10^3/uL (130-400); Red Cell Dist. Width 13.5 % (11.5-14.5)
[2024-11-21 04:12] LABS: Blood Urea Nitrogen 37 mg/dl (7-17); Calcium 9.3 mg/dl (8.4-10.2); Carbon Dioxide 34 mmol/L (22-30); Chloride 100 mmol/L (98-107); Estimated Creatinine Clearance 72 ml/min; Glucose 142 mg/dl (70-99); Magnesium 2.2 mg/dl (1.6-2.3); Potassium 4.5 mmol/L (3.5-5.1); Sodium 141 mmol/L (135-145); eGFR > 60.00
[2024-11-21] MEDS: STERILE WATER FOR INJECTION 10 ML IV (05:26)
[2024-11-21] MEDS: ROCEPHIN 1000 MG IV (05:26)
[2024-11-21] MEDS: FLUSH (NSS) 2 FLUSH IV (05:26)
[2024-11-21] MEDS: SYNTHROID 100 MCG PO (05:27)
--- NOTE | 2024-11-21 05:38 | PTCARENOTE ---
Pt rested well overnight. Wore BIPAP throughout shift. Currently on 12 L MF pox 96-98%. VSS. Afebrile. SR/PQT on CM. Garbled speech. Can be hard to understand. Denies pain or discomfort throughout shift. Purewick intact at present time. No BM.
Received CHG bath this am. AM weight 195.6lbs. Now with occasional moist slip filler cough this am. Rest of assessment unchanged from previous. Turns self in bed. Using call azevedo for assistance which remains within reach. Will continue to monitor.
[2024-11-21] MEDS: SYMBICORT 80/4.5 MCG INHALER 2 PUFF INH ×2 (07:55→20:02)
[2024-11-21] MEDS: MIRALAX 17 GRAMS PO ×2 (08:07→19:39)
[2024-11-21] MEDS: PROTONIX 40 MG PO (08:08)
[2024-11-21] MEDS: ZETIA 10 MG PO (08:08)
[2024-11-21] MEDS: FARXIGA 10 MG PO (08:08)
[2024-11-21] MEDS: LASIX 40 MG PO (08:08)
[2024-11-21] MEDS: SENOKOT-S 2 TABLET PO (08:08)
[2024-11-21] MEDS: THEO DUR 300 MG PO (08:08)
[2024-11-21] MEDS: VIBRAMYCIN 100 MG PO ×2 (08:08→19:40)
[2024-11-21] MEDS: ZYLOPRIM 300 MG PO (08:08)
[2024-11-21] MEDS: VALTREX 1000 MG PO ×2 (08:08→19:40)
[2024-11-21] MEDS: MUCINEX 600 MG PO ×2 (08:08→19:40)
[2024-11-21] MEDS: NORVASC 10 MG PO (08:08)
[2024-11-21] MEDS: PROZAC 20 MG PO (08:08)
[2024-11-21] MEDS: SOLU-MEDROL PF 40 MG IV (08:09)
[2024-11-21] MEDS: LANTUS 0.25 UNITS SC (08:09)
[2024-11-21] MEDS: NOVOLOG FLEXPEN-MODERATE RESISTANCE SC (08:10)
[2024-11-21] MEDS: NOVOLOG FLEXPEN 15 UNITS SC ×2 (08:10→11:53)
[2024-11-21 08:15] LABS: Glucose - Point of Care 128 mg/dl (70-99)
--- NOTE | 2024-11-21 09:07 | W.PN.HOSP.TC ---
Today's Communication/Plan
-
see bold
Assessment / Plan
Assessment / Plan
HPI: 64y F with PMH significant for Bipolar / schizophrenia, hypertension and DM who presents to ED from local facility for evaluation of cough and SOB. Patient reports cough and malaise for about one week. She is chronically on 2 lpm of O2 at
home. Patient was started on doxycycline earlier today (one dose thus far) but was sent to the ED for worsening SOB.
#Sepsis
#Pneumonia
WBC 17.3, Neut 77.8, CO2 34, BUN 26, AST 106, ALT 122
CXR: Some suspected patchy bilateral perihilar opacities which could represent pneumonitis.
Pulmonary vascularity at least top normal.
Urine Legionella/strep antigens negative, COVID/flu negative, blood cx NTD
Continue Rocephin/doxycycline day 6, follow-up blood cultures
Leukocytosis resolved, trend fever and white count
#Acute on chronic hypoxic respiratory failure
#History of COPD/asthma
Currently requiring 11 L of oxygen, down from 12 L, wean as tolerated. She wears 2 L at baseline
Appreciate pulmonology input, started on Solu-Medrol 11/18
Continue bronchodilators, theophylline
#Pleuritic chest pain
Due to pneumonia
Troponin negative
#Constipation
Resolved
#Bipolar disorder/schizophrenia
#Cutting her thumbs on a soda can 11/17
Continue Klonopin, Depakote, Prozac, Zyprexa
Psychiatry consulted, Depakote level & TSH acceptable
#Essential hypertension
Increased amlodipine to 10 mg daily
#Type 2 diabetes with steroid-induced hyperglycemia
Hgb A1c 7.5, increased home Lantus 25 units daily
Increased NovoLog 18 units AC 3 times daily
#Obstructive sleep apnea
Noncompliant with her CPAP per report
#Obesity due to excess calories
Affects all aspects of care
DVT prophylaxis�Lovenox
Full code
[facility]
Total time spent to see the patient on the floor, examine the patient, review data and lab results, discuss treatment plan with patient, nursing staff around 39 minutes.
Physical Exam
General: Obese, no acute distress
HEENT: Normocephalic, Atraumatic, EOMI, MMM
Respiratory: Severely diminished breath sounds at the bases with right basilar crackles
Cardiac: Normal S1/S2, Regular Rate and Rhythm
GI: Soft, Nontender, Nondistended, Normal Bowel Sounds
Extremities: No Clubbing, Cyanosis, or Edema
Neuro: Nonfocal/Grossly Intact
Psych: Calm, Cooperative
Derm: Laceration on bilateral thumbs are dressed
Anticipated Discharge: > 48 hours
Subjective/Interval History
-
Date of Service: November 21, 2024
Patient continues to cough. Shortness of breath resolved. No fever, no vomiting.
Objective Data
-
Labs:
Laboratory Results
11/21/24
03:20
WBC 9.5
Hgb 11.9 L
Hct 35.8 L
Plt Count 242
Sodium 141
Potassium 4.5
Chloride 100
Carbon Dioxide 34 H
BUN 37 H
Creatinine 0.8
Glucose 142 H
Calcium 9.3
Vital Signs:
Vital Signs
Temp Pulse Resp BP Pulse Ox
97.7 F 85 30 157/100 95
11/21/24 07:51 11/21/24 08:08 11/21/24 08:00 11/21/24 08:08 11/21/24 08:00
I&O
11/20/24 11/21/24 11/22/24
06:59 06:59 06:59
Intake Total 1680 / 1680 400 / 400
Output Total 300 / 300 1200 / 1200
Balance 1380 / 1380 -800 / -800
[2024-11-21] MEDS: NOVOLOG FLEXPEN-MODERATE RESISTANCE 5 UNITS SC (11:52)
[2024-11-21 12:03] LABS: Glucose - Point of Care 265 mg/dl (70-99)
[2024-11-21 16:28] LABS: Glucose - Point of Care 187 mg/dl (70-99)
--- NOTE | 2024-11-21 16:40 | W.PN.PUL3 ---
Today's Communication / Plan
-
- Continue IV Solu-Medrol for total of 5 days - may need to prolong depending on her rate of recovery
- Wean oxygen as tolerated
- Continue current antibiotics, follow-up on cultures
- Incentive spirometry, sit in chair as tolerated, increase activity
- PT/OT
- If hypoxia does not continue to improve then we will consider changing inhalers to nebulized form
- Pulmonary service will continue to follow along
Assessment
-
Patient is a 64 old female with known history of underlying schizophrenia and bipolar disorder with COPD asthma overlap syndrome along with untreated obstructive sleep apnea and obesity who was admitted to the hospital on 11/16 with increasing
shortness of breath. Patient was noted to be febrile along with evidence of pneumonia and was started on antibiotic and supplemental oxygen. Patient is chronically on 2 L oxygen at home and was having dry cough going on for about a week's time.
Patient has been on antibiotics and currently requiring 12 L supplemental oxygen and saturating about 92%. Pulmonary consultation was requested for further input.
#1. Acute on chronic hypoxic respiratory failure with pneumonia
- Clinically and radiologically improving. Dyspnea significantly improved, still needing significant supplemental oxygen however
- Patient currently saturating 96% on 9L/min, which is improved from yesterday when she was saturating 93% on 12 L/min. Reports improving dyspnea
- 11/18, ABG reviewed, pO2 81, wide A-a gap. Low threshold to switch to high flow nasal cannula as needed
- Continue IV Solu-Medrol 40 mg daily for 5 days considering the severity of pneumonia and associated hypoxic respiratory failure
- MRSA screen negative, also negative Legionella and streptococcal antigen. Influenza A, B, COVID-19 screen negative. Blood cultures have stayed negative so far
- Currently on ceftriaxone and doxycycline, WBC count improving, 9.5 now compared to 17.3 on admission
- Incentive spirometry, sit in chair as tolerated. Suspect atelectasis with her body habitus also adding to hypoxia. Poor respiratory reserve
#2. Chronic hypercapnic respiratory failure with underlying sleep apnea
- Patient declines BiPAP
- Arterial blood gas reviewed, pCO2 of 51 within normal pH, consistent with compensated hypercapnia. No mental status changes noted
- Can consider diamox if pH >7.5 and serum HCO3 approaches 40 --> continue to occasionally monitor VBG
#3. H/o COPD/Asthma overlap with history of severely elevated eosinophils
- She has a history of severe eosinophilia with absolute eosinophil count of 2500 on 04/12/2023. Since January 2024, she has been between .
- Currently patient does not seem to have active wheezing
- No prior history of smoking however patient has secondhand smoke exposure as a child.
- Continue Symbicort as prescribed, also has been on theophylline chronically.
- Continue as needed DuoNeb; if patients hypoxia does not continue to steadily improve, will consider changing inhalers to nebulized form and possibly raising steroids
- Steroid added for the severity of underlying pneumonia
#4. Chronic restrictive lung disease
- Post�bronchodilator FVC: 69% / 2.04 L via spirometry on 12/12/2020; postbronchodilator FVC: 42% predicted (1.18 L) with TLC 124% and VC 40% predicted via PFTs from 03/07/2022 (through [facility]). She did have difficulty following instructions per
power tool repair technician during this test.
- Suspect restriction related to underlying obesity. Needs full pulmonary function testing including lung volumes, diffusion capacity assessment as well as 6-minute walk test as outpatient
#5. Pulmonary nodules.
- CT chest reviewed from January 2024, multiple 1 to 2 mm nodules, stable since 2022 suggestive of benign etiology. No prior history of smoking
- Needs outpatient follow-up with pulmonary service
Patient was seen at [facility] pulmonary clinic in 2020, has not followed up since. Will recommend outpatient follow-up after discharge
Other medical diagnoses:
- Hypertension
- Diabetes type 2
- Obesity, BMI 36.9
- History of bipolar disorder/schizophrenia
- Heart failure with preserved ejection fraction, on p.o. Lasix
- History of respiratory failure requiring prolonged intubation in February 2024.
Total time spent today was 52 minutes for this encounter. Time includes reviewing laboratory test/imaging results, reviewing pertinent medical records, obtaining and reviewing medical history, performing an appropriate exam, ordering medications,
tests and procedures. Time also includes documentation of this encounter, coordinating patient care and communicating with other healthcare professionals. Total time does not include separately billed tests performed on this date of service.
Data:
CXR 11/2024: Some suspected patchy bilateral perihilar opacities which could represent pneumonitis.
Pulmonary vascularity at least top normal.
ECHO 01/2024: Normal left ventricular size, wall thickness and systolic function.
LV ejection fraction is 60-65% by visual estimation.
Normal right ventricular size and function.
Mild aortic stenosis.
Estimated pulmonary artery pressure of 38 mmHg assuming a right atrial pressure
of 3 mmHg.
Compared to prior from February 12, 2022, mild aortic stenosis is seen.
Subjective Data
-
Date of Service:
Date of Service: November 21, 2024
Chief Complaint: Pulmonary Follow Up
Subjective:
Patient seen and evaluated today at bedside (late note entry). She is resting in bed, on 9 L/min nasal cannula, saturating 96% with heart rate 86 and BP 148/76. She still has a cough with no phlegm being produced. She currently denies chest pain,
CLIFFORD, nausea, fevers or chills.
Review of Systems
General: Other (Negative unless mentioned above)
Objective Data
Data Reviewed
Vital Signs / I&O / Oxygen:
Vital Signs
Temp Pulse Resp BP Pulse Ox
97.7 F 85 30 157/100 95
11/21/24 07:51 11/21/24 08:08 11/21/24 08:00 11/21/24 08:08 11/21/24 08:00
Intake and Output
11/20/24 11/21/24 11/22/24
06:59 06:59 06:59
Intake Total 1680 / 1680 400 / 400
Output Total 300 / 300 1200 / 1200
Balance 1380 / 1380 -800 / -800
SaO2 95
Nasal Cannula flow liters per 12
minute
Physical Exam
General: Respiratory Distress (negative), Comfortable, Chills (negative) and Sweats (negative)
HEENT: Normocephalic and Anicteric
Cardiovascular: S1-S2, Rub (negative) and Peripheral Edema (trace CHUN bilaterally)
Respiratory: Wheeze (negative), Crackles (Bibasilar), Rhonchi (negative), Non-Labored Respirations and Stridor (negative)
GI: Soft, Non Distended, Non Tender and Normal Bowel Sounds
Neurology: Awake, Alert and Tremors (negative)
Skin: Warm, Dry, Cyanosis (negative) and Jaundice (negative)
Labs/Micro/Reports
Lab Data
11/21/24 03:20
11/21/24 03:20
Microbiology
11/16/24 20:58 Blood/Venous Blood Culture - Preliminary
No Growth in 4 days- Final report to follow
11/16/24 20:58 Blood/Venous Blood Culture - Preliminary
No Growth in 4 days- Final report to follow
11/17/24 05:22 Nose MRSA Screen - Final
No Methicillin Resistant Staphylococcus aureus isolated.
[2024-11-21] MEDS: LOVENOX 40 MG SC (17:28)
[2024-11-21] MEDS: NOVOLOG FLEXPEN-MODERATE RESISTANCE 1 UNITS SC (17:29)
[2024-11-21] MEDS: NOVOLOG FLEXPEN 18 UNITS SC (17:29)
--- NOTE | 2024-11-21 17:32 | PTCARENOTE ---
Patient AOx3. Chronic garbled speech. 12L midflow with SpO2 92%. NSR with PVC's on monitor. Assist x1 with RW when OOB. Call azevedo within reach, bed in lowest position, and bed of wheels locked.
[2024-11-21] MEDS: DEPAKOTE ER (24 HR RELEASE) 1000 MG PO (19:40)
[2024-11-21] MEDS: MELATONIN 5 MG PO (19:40)
[2024-11-21] MEDS: LIPITOR 20 MG PO (19:40)
[2024-11-21] MEDS: KLONOPIN 1.5 MG PO (19:41)
[2024-11-21] MEDS: ZYPREXA 15 MG PO (19:41)
[2024-11-21 21:58] LABS: Glucose - Point of Care 123 mg/dl (70-99)
[2024-11-22] VITALS (18 sets, daily range): BP systolic 128–167; BP diastolic 59–102; PULSE 74–90; BMI 37.1
[2024-11-22] MEDS: STERILE WATER FOR INJECTION 10 ML IV (05:54)
[2024-11-22] MEDS: ROCEPHIN 1000 MG IV (05:54)
[2024-11-22] MEDS: SYNTHROID 100 MCG PO (05:54)
[2024-11-22] MEDS: FLUSH (NSS) 2 FLUSH IV (05:55)
[2024-11-22] MEDS: VIBRAMYCIN 100 MG PO ×2 (07:29→19:48)
[2024-11-22] MEDS: VALTREX 1000 MG PO ×2 (07:29→19:48)
[2024-11-22] MEDS: ZETIA 10 MG PO (07:30)
[2024-11-22] MEDS: THEO DUR 300 MG PO (07:30)
[2024-11-22] MEDS: ZYLOPRIM 300 MG PO (07:30)
[2024-11-22] MEDS: PROZAC 20 MG PO (07:30)
[2024-11-22] MEDS: MUCINEX 600 MG PO ×2 (07:30→19:48)
[2024-11-22] MEDS: NORVASC 10 MG PO (07:30)
[2024-11-22] MEDS: PROTONIX 40 MG PO (07:30)
[2024-11-22] MEDS: LASIX 40 MG PO (07:30)
[2024-11-22] MEDS: FARXIGA 10 MG PO (07:30)
[2024-11-22] MEDS: SOLU-MEDROL PF 40 MG IV (07:31)
[2024-11-22] MEDS: MIRALAX 17 GRAMS PO (07:31)
[2024-11-22] MEDS: LANTUS 0.25 UNITS SC (07:33)
[2024-11-22] MEDS: NOVOLOG FLEXPEN-MODERATE RESISTANCE SC ×2 (07:33→17:16)
[2024-11-22] MEDS: NOVOLOG FLEXPEN 18 UNITS SC ×3 (07:34→17:15)
[2024-11-22 07:44] LABS: Glucose - Point of Care 112 mg/dl (70-99)
[2024-11-22] MEDS: SYMBICORT 80/4.5 MCG INHALER 2 PUFF INH (07:51)
--- NOTE | 2024-11-22 09:21 | W.PN.HOSP.TC ---
Today's Communication/Plan
-
see bold
Assessment / Plan
Assessment / Plan
HPI: 64y F with PMH significant for Bipolar / schizophrenia, hypertension and DM who presents to ED from local facility for evaluation of cough and SOB. Patient reports cough and malaise for about one week. She is chronically on 2 lpm of O2 at
home. Patient was started on doxycycline earlier today (one dose thus far) but was sent to the ED for worsening SOB.
#Sepsis
#Pneumonia
WBC 17.3, Neut 77.8, CO2 34, BUN 26, AST 106, ALT 122
CXR: Some suspected patchy bilateral perihilar opacities which could represent pneumonitis.
Pulmonary vascularity at least top normal.
Urine Legionella/strep antigens negative, COVID/flu negative, blood cx NTD
Continue Rocephin/doxycycline day 7
Leukocytosis resolved, trend fever and white count
#Acute on chronic hypoxic respiratory failure
#History of COPD/asthma
Currently requiring 8 L of oxygen, down from 12 L, wean as tolerated. She wears 2 L at baseline
Appreciate pulmonology input, started on Solu-Medrol 11/18- 11/22
Continue bronchodilators, theophylline
Slow to improve, will give Lasix 40 mg IV x 1, repeat chest x-ray and BNP in the a.m.
#Pleuritic chest pain
Due to pneumonia
Troponin negative
#Constipation
Resolved
#Bipolar disorder/schizophrenia
#Cutting her thumbs on a soda can 11/17
Continue Klonopin, Depakote, Prozac, Zyprexa
Psychiatry consulted, Depakote level & TSH acceptable
#Essential hypertension
Increased amlodipine to 10 mg daily
#Type 2 diabetes with steroid-induced hyperglycemia
Hgb A1c 7.5, increased home Lantus 25 units daily
Increased NovoLog 18 units AC 3 times daily
#Obstructive sleep apnea
Noncompliant with her CPAP per report
#Obesity due to excess calories
Affects all aspects of care
DVT prophylaxis�Lovenox
Full code
[facility]
Total time spent to see the patient on the floor, examine the patient, review data and lab results, discuss treatment plan with patient, nursing staff around 50 minutes.
Physical Exam
General: Obese, no acute distress
HEENT: Normocephalic, Atraumatic, EOMI, MMM
Respiratory: Severely diminished breath sounds at the bases with right basilar crackles
Cardiac: Normal S1/S2, Regular Rate and Rhythm
GI: Soft, Nontender, Nondistended, Normal Bowel Sounds
Extremities: No Clubbing, Cyanosis, or Edema
Neuro: Nonfocal/Grossly Intact
Psych: Calm, Cooperative
Derm: Laceration on bilateral thumbs are dressed
Anticipated Discharge: > 48 hours
Subjective/Interval History
-
Date of Service: November 22, 2024
Patient continues to cough. Her shortness of breath has resolved. No fever, no vomiting.
Objective Data
-
Vital Signs:
Vital Signs
Temp Pulse Resp BP Pulse Ox
98.6 F 96 22 134/90 98
11/22/24 07:45 11/22/24 08:00 11/22/24 08:00 11/22/24 08:00 11/22/24 08:00
I&O
11/21/24 11/22/24 11/23/24
06:59 06:59 06:59
Intake Total 400 / 400 1120 / 1120
Output Total 1200 / 1200 350 / 350
Balance -800 / -800 770 / 770
[2024-11-22] MEDS: TYLENOL 650 MG PO (09:47)
--- NOTE | 2024-11-22 10:47 | CM ---
food production manager reviewed patient's chart patient was down to 8 liters of oxygen however per nursing they had to put her back up to 10 liters of oxygen this morning, patient was admitted from [facility], [facility], , patient has home
oxygen at 2-3 liters from [employer] equipment [employer], CPAP needs to be evaluated and reach out to equipment company to see if the can replace.
Plan; Patient to return to [facility] when stable.
[2024-11-22 11:28] LABS: Glucose - Point of Care 185 mg/dl (70-99)
[2024-11-22] MEDS: NOVOLOG FLEXPEN-MODERATE RESISTANCE 1 UNITS SC (11:56)
--- NOTE | 2024-11-22 16:30 | W.PN.PUL3 ---
Today's Communication / Plan
-
- Continue IV Solu-Medrol for total of 5 days - may need to prolong depending on her rate of recovery (last day is today)
- Wean oxygen as tolerated
- Continue current antibiotics, follow-up on cultures
- Incentive spirometry, sit in chair as tolerated, increase activity
- PT/OT
- If hypoxia does not continue to improve then we will consider changing inhalers to nebulized form
- Pulmonary service will continue to follow along
Assessment
-
Patient is a 64 old female with known history of underlying schizophrenia and bipolar disorder with COPD asthma overlap syndrome along with untreated obstructive sleep apnea and obesity who was admitted to the hospital on 11/16 with increasing
shortness of breath. Patient was noted to be febrile along with evidence of pneumonia and was started on antibiotic and supplemental oxygen. Patient is chronically on 2 L oxygen at home and was having dry cough going on for about a week's time.
Patient has been on antibiotics and currently requiring 12 L supplemental oxygen and saturating about 92%. Pulmonary consultation was requested for further input.
#1. Acute on chronic hypoxic respiratory failure with pneumonia
- Clinically and radiologically improving. Dyspnea significantly improved, still needing significant supplemental oxygen however it is improving as of 11/22 (down to 5L/min)
- Patient currently saturating 94% on 5L/min, improved from 96% on 9L/min on 11/21 (and prior to that she was saturating 93% on 12 L/min)
- 11/18, ABG reviewed, pO2 81, wide A-a gap. Low threshold to switch to high flow nasal cannula as needed
- Today is last day of IV Solu-Medrol 40 mg daily (plan for 5 days total) considering the severity of pneumonia and associated hypoxic respiratory failure
- MRSA screen negative, also negative Legionella and streptococcal antigen. Influenza A, B, COVID-19 screen negative. Blood cultures have stayed negative so far
- Currently on ceftriaxone and doxycycline, WBC count improving, 9.5 on 11/21 compared to 17.3 on admission
- Incentive spirometry, sit in chair as tolerated. Suspect atelectasis with her body habitus also adding to hypoxia. Poor respiratory reserve
#2. Chronic hypercapnic respiratory failure with underlying sleep apnea
- Patient declines BiPAP, however she did wear CPAP overnight (11/21 - 11/22)
- Arterial blood gas reviewed, pCO2 of 51 within normal pH, consistent with compensated hypercapnia. No mental status changes noted
- Can consider diamox if pH >7.5 and serum HCO3 approaches 40 --> continue to occasionally monitor VBG
#3. H/o COPD/Asthma overlap with history of severely elevated eosinophils
- She has a history of severe eosinophilia with absolute eosinophil count of 2500 on 04/12/2023. Since January 2024, she has been between .
- Currently patient does not seem to have active wheezing
- No prior history of smoking however patient has secondhand smoke exposure as a child.
- Continue Symbicort as prescribed, also has been on theophylline chronically.
- Continue as needed DuoNeb; if patients hypoxia does not continue to steadily improve, will consider changing inhalers to nebulized form and possibly raising steroids
- Steroid added for the severity of underlying pneumonia --> last day today of steroids
#4. Chronic restrictive lung disease
- Post�bronchodilator FVC: 69% / 2.04 L via spirometry on 12/12/2020; postbronchodilator FVC: 42% predicted (1.18 L) with TLC 124% and VC 40% predicted via PFTs from 03/07/2022 (through [facility]). She did have difficulty following instructions per
ear mold laboratory technician during this test.
- Suspect restriction related to underlying obesity. Needs full pulmonary function testing including lung volumes, diffusion capacity assessment as well as 6-minute walk test as outpatient
#5. Pulmonary nodules.
- CT chest reviewed from January 2024, multiple 1 to 2 mm nodules, stable since 2022 suggestive of benign etiology. No prior history of smoking
- Needs outpatient follow-up with pulmonary service
Patient was seen at [facility] pulmonary clinic in 2020, has not followed up since. Will recommend outpatient follow-up after discharge.
Other medical diagnoses:
- Hypertension
- Diabetes type 2
- Obesity, BMI 36.9
- History of bipolar disorder/schizophrenia
- Heart failure with preserved ejection fraction, on p.o. Lasix
- History of respiratory failure requiring prolonged intubation in February 2024.
Total time spent today was 36 minutes for this encounter. Time includes reviewing laboratory test/imaging results, reviewing pertinent medical records, obtaining and reviewing medical history, performing an appropriate exam, ordering medications,
tests and procedures. Time also includes documentation of this encounter, coordinating patient care and communicating with other healthcare professionals. Total time does not include separately billed tests performed on this date of service.
Data:
CXR 11/2024: Some suspected patchy bilateral perihilar opacities which could represent pneumonitis.
Pulmonary vascularity at least top normal.
ECHO 01/2024: Normal left ventricular size, wall thickness and systolic function.
LV ejection fraction is 60-65% by visual estimation.
Normal right ventricular size and function.
Mild aortic stenosis.
Estimated pulmonary artery pressure of 38 mmHg assuming a right atrial pressure
of 3 mmHg.
Compared to prior from February 12, 2022, mild aortic stenosis is seen.
Subjective Data
-
Date of Service:
Date of Service: November 22, 2024
Chief Complaint: Pulmonary Follow Up
Subjective:
Pt seen and evaluated this AM. Currently on 5L/min, and she is saturating 95%, HR 93 and BP 148/66. She has no complaints. Wore CPAP overnight.
Review of Systems
General: Other (negative unless mentioned above)
Objective Data
Data Reviewed
Vital Signs / I&O / Oxygen:
Vital Signs
Temp Pulse Resp BP Pulse Ox
98.6 F 91 17 140/76 92
11/22/24 07:45 11/22/24 10:00 11/22/24 10:00 11/22/24 10:00 11/22/24 10:00
Intake and Output
11/21/24 11/22/24 11/23/24
06:59 06:59 06:59
Intake Total 400 / 400 1120 / 1120
Output Total 1200 / 1200 350 / 350
Balance -800 / -800 770 / 770
SaO2 92
Nasal Cannula flow liters per 12
minute
Physical Exam
General: Respiratory Distress (negative), Comfortable, Chills (negative) and Sweats (negative)
HEENT: Normocephalic and Anicteric
Cardiovascular: S1-S2, Rub (negative) and Peripheral Edema (trace CHUN bilaterally)
Respiratory: Wheeze (negative), Crackles (Bibasilar), Rhonchi (negative), Non-Labored Respirations and Stridor (negative)
GI: Soft, Non Distended, Non Tender and Normal Bowel Sounds
Neurology: Awake, Alert and Tremors (negative)
Skin: Warm, Dry, Cyanosis (negative) and Jaundice (negative)
Labs/Micro/Reports
Lab Data
11/21/24 03:20
11/21/24 03:20
Microbiology
11/16/24 20:58 Blood/Venous Blood Culture - Final
No Growth - Final Report
11/16/24 20:58 Blood/Venous Blood Culture - Final
No Growth - Final Report
[2024-11-22] MEDS: LOVENOX 40 MG SC (17:09)
[2024-11-22] MEDS: LASIX 40 MG IV (17:09)
[2024-11-22 17:23] LABS: Glucose - Point of Care 135 mg/dl (70-99)
--- NOTE | 2024-11-22 17:39 | PTCARENOTE ---
Patient AOx3. Chronic garbled speech. 8L midflow with SpO2 92%. NSR with PVC's on monitor. Assist x1 with RW when OOB. Call azevedo within reach, bed in lowest position, and bed of wheels locked.
[2024-11-22] MEDS: DUONEB 3 ML INH (18:17)
--- NOTE | 2024-11-22 18:20 | W.PN.UPDATE ---
Update Note
Progress Note Update
Responded to rapid response. Patient complaining of worsening shortness of breath, and desatted.
Currently, she is receiving a breathing treatment, and her oxygenation is improved.
Appreciate pulmonology help. Recommend getting chest x-ray, repeat blood work.
She did receive a dose of IV Lasix 1 hour ago. Echocardiogram has been requested.
Will monitor closely in the IMU.
--- NOTE | 2024-11-22 18:32 | W.PN.UPDATE ---
Update Note
Progress Note Update
Rapid response called due to high blood pressure and hypoxia. I immediately went to see the patient with ICU nurse, Sarthak. Rapid response called. Patient awake, alert, reports mild chest discomfort, although she is not an extremis and is not
tachypneic. Nonrebreather initially placed onto the patient but this was quickly weaned down to midflow nasal cannula at 15L/min. Labs ordered including chemistry, CBC, mag, Phos, ABG and troponin. CXR obtained showing no major atelectasis, and
there is actually improvement to her right perihilar opacity and retrocardiac opacification. No evidence of volume overload.
Plan:
- Will continue to monitor the patient in IMU
- Follow up blood work including ABG, troponin, CBC, BMP, Mg + PO4
- Given her history of COPD/asthma with significant eosinophilia, I will raise her Symbicort dose to 160 mcg starting tonight
- If SOB recurs then we will need to prolong steroid course, for now will continue to monitor as today was her last day of Solu-Medrol.
[2024-11-22 18:36] LABS: B.E. 12.0 mmol/L; HCO3 37.3 mmol/L (21-28); O2 Saturation % 99.1 % (94-98); PCO2 49 mmHg (32-35); PO2 100 mmHg (83-108)
--- NOTE | 2024-11-22 18:37 | RR ---
A Rapid Response was called on this patient, please see Rapid Response form.
Patient rang call azevedo. RN to bedside and patient wanted to tell RN that the purewick container was full. While RN was changing container, patient SpO2 was in the 60's on 5L midflow. Turned oxygen to 15L midflow and placed a NRB. SpO2 in 70's. RR
called. SOLUTION LEAD's, RT, Dr. Kenyon, and Dr. Heller at bedside. SpO2 improved to the 90's.
[2024-11-22 18:43] LABS: Hematocrit 39.5 % (37.0-47.0); Hemoglobin 13.5 g/dL (12.0-16.0); Mean Corp Hgb Conc. 34.2 g/dL (33.0-37.0); Mean Corpuscular Volume 104.5 fL (81.0-99.0); Nucleated Red Blood Cells % 0 %; Platelet Count 329 10^3/uL (130-400); Red Cell Dist. Width 13.3 % (11.5-14.5)
[2024-11-22 18:51] LABS: Blood Urea Nitrogen 39 mg/dl (7-17); Calcium 10.1 mg/dl (8.4-10.2); Carbon Dioxide 33 mmol/L (22-30); Chloride 98 mmol/L (98-107); Estimated Creatinine Clearance 64 ml/min; Glucose 122 mg/dl (70-99); Magnesium 1.9 mg/dl (1.6-2.3); Potassium 4.1 mmol/L (3.5-5.1); Sodium 140 mmol/L (135-145); eGFR > 60.00
[2024-11-22 19:05] LABS: Troponin I < 0.012 ng/ml
[2024-11-22] MEDS: MIRALAX PO (19:32)
[2024-11-22] MEDS: KLONOPIN 1.5 MG PO (19:47)
[2024-11-22] MEDS: ZYPREXA 15 MG PO (19:48)
[2024-11-22] MEDS: DEPAKOTE ER (24 HR RELEASE) 1000 MG PO (19:48)
[2024-11-22] MEDS: LIPITOR 20 MG PO (19:48)
[2024-11-22] MEDS: MELATONIN 5 MG PO (19:48)
[2024-11-22] MEDS: SYMBICORT 160/4.5 MCG INHALER 2 PUFF INH (19:59)
[2024-11-22 21:24] LABS: Glucose - Point of Care 150 mg/dl (70-99)
[2024-11-23] VITALS (14 sets, daily range): BP systolic 105–158; BP diastolic 28–97; PULSE 87–88; O2SAT 94; BMI 36.0
--- NOTE | 2024-11-23 02:12 | PTCARENOTE ---
Pt continues with NSR with PVCs. VSS at this time. Denies new complaints. O2 titrated as tolerated. Care ongoing. Call azevedo within reach.
[2024-11-23 04:29] LABS: Hematocrit 36.2 % (37.0-47.0); Hemoglobin 12.5 g/dL (12.0-16.0); Mean Corp Hgb Conc. 34.5 g/dL (33.0-37.0); Mean Corpuscular Volume 107.7 fL (81.0-99.0); Platelet Count 305 10^3/uL (130-400); Red Cell Dist. Width 13.2 % (11.5-14.5)
[2024-11-23 04:58] LABS: Blood Urea Nitrogen 35 mg/dl (7-17); Calcium 9.5 mg/dl (8.4-10.2); Carbon Dioxide 34 mmol/L (22-30); Chloride 100 mmol/L (98-107); Estimated Creatinine Clearance 72 ml/min; Glucose 141 mg/dl (70-99); Magnesium 2.1 mg/dl (1.6-2.3); Potassium 4.2 mmol/L (3.5-5.1); Sodium 140 mmol/L (135-145); eGFR > 60.00
[2024-11-23] MEDS: STERILE WATER FOR INJECTION 10 ML IV (05:09)
[2024-11-23] MEDS: ROCEPHIN 1000 MG IV (05:09)
[2024-11-23] MEDS: SYNTHROID 100 MCG PO (05:09)
[2024-11-23 07:07] LABS: Glucose - Point of Care 129 mg/dl (70-99)
[2024-11-23] MEDS: SYMBICORT 160/4.5 MCG INHALER 2 PUFF INH ×2 (08:13→20:08)
[2024-11-23] MEDS: NOVOLOG FLEXPEN-MODERATE RESISTANCE SC ×3 (08:45→16:59)
--- NOTE | 2024-11-23 09:09 | W.PN.PUL3 ---
Today's Communication / Plan
-
Currently on 4-5L O2, reports baseline use of 2L--wean further as tolerated
Encouraged IS, OOB, PT/OT
Off IV steroids
PCT negative, would stop abx
Resumed on home lasix
PT/OT evals
Can transfer out of IMU
Discharge planning per team
Assessment
-
Patient is a 64 old female with known history of underlying schizophrenia and bipolar disorder with COPD asthma overlap syndrome along with untreated obstructive sleep apnea and obesity who was admitted to the hospital on 11/16 with increasing
shortness of breath. Patient was noted to be febrile along with evidence of pneumonia and was started on antibiotic and supplemental oxygen. Patient is chronically on 2 L oxygen at home and was having dry cough going on for about a week's time.
Patient has been on antibiotics and currently requiring 12 L supplemental oxygen and saturating about 92%. Pulmonary consultation was requested for further input.
Acute on chronic hypoxic respiratory failure with pneumonia
Chronic hypercapnic respiratory failure with underlying sleep apnea
H/o COPD/Asthma overlap with history of severely elevated eosinophils
Pulmonary nodules.
Conditions present prior to admission:
CHF-preserved EF with normal RV size and function
Mild aortic stenosis
Asthma without acute exacerbation
History of mild restrictive lung disease (post�bronchodilator FVC: 69% / 2.04 L via spirometry on 12/12/2020)
CIELO on CPAP
Bipolar/Schizophrenia.
Borderline personality disorder
DM type II c/b hyperglycemia
Hypertension.
Hypothyroidism
Obesity.
Anemia.
GERD.
Appendectomy. Cholecystectomy
Plan
Clinically and radiologically improving. Dyspnea significantly improved, still needing significant supplemental oxygen however it is improving as of 11/22 (down to 5L/min)
Patient currently saturating 94% on 5L/min, improved from 96% on 9L/min on 11/21 (and prior to that she was saturating 93% on 12 L/min)
11/18, ABG reviewed, pO2 81, wide A-a gap. Low threshold to switch to high flow nasal cannula as needed
Atelectasis/obesity/RLD contributing to hypoxemia
She notes baseline use of 2L at home
Today is last day of IV Solu-Medrol 40 mg daily (plan for 5 days total) considering the severity of pneumonia and associated hypoxic respiratory failure
Now weaned completely off steroids, no taper
MRSA screen negative, also negative Legionella and streptococcal antigen. Influenza A, B, COVID-19 screen negative. Blood cultures have stayed negative so far
Currently on ceftriaxone and doxycycline, WBC count improving, 9.5 on 11/21 compared to 17.3 on admission
Incentive spirometry, sit in chair as tolerated. Suspect atelectasis with her body habitus also adding to hypoxia. Poor respiratory reserve
PCT negative, can stop abx
Speech eval in past with mild dysphagia- VSE 02/07/24: Mild oropharyngeal dysphagia noted. Supraglottic penetration which fully cleared (PAS 2) noted with mildly thick liquids via tsp and consecutive straw sips. Supraglottic penetration which did
not clear (PAS 3) noted with thin liquid via single and consecutive straw sips as well as mildly thick liquids via single straw sip. No significant pharyngeal residue noted.
Aspiration risk noted
Patient declines BiPAP, however she did wear CPAP overnight (11/21 - 11/22)
Arterial blood gas reviewed, pCO2 of 51 within normal pH, consistent with compensated hypercapnia. No mental status changes noted
Can consider diamox if pH >7.5 and serum HCO3 approaches 40 --> continue to occasionally monitor VBG
She has a history of eosinophilia with absolute eosinophil count of 2500 on 04/12/2023. Since January 2024, she has been between .
Currently patient does not seem to have active wheezing
No prior history of smoking however patient has secondhand smoke exposure as a child.
Continue Symbicort as prescribed, also has been on theophylline chronically.
Continue as needed DuoNeb; if patients hypoxia does not continue to steadily improve, will consider changing inhalers to nebulized form and possibly raising steroids
Steroid added for the severity of underlying pneumonia --> last day today of steroids
proBNP 462
History of CHF
Resumed on home lasix
Post�bronchodilator FVC: 69% / 2.04 L via spirometry on 12/12/2020; postbronchodilator FVC: 42% predicted (1.18 L) with TLC 124% and VC 40% predicted via PFTs from 03/07/2022 (through [facility]). She did have difficulty following instructions per
printing technician during this test.
Suspect restriction related to underlying obesity. Needs full pulmonary function testing including lung volumes, diffusion capacity assessment as well as 6-minute walk test as outpatient
CT chest reviewed from January 2024, multiple 1 to 2 mm nodules, stable since 2022 suggestive of benign etiology. No prior history of smoking
Needs outpatient follow-up with pulmonary service
Patient was seen at [facility] pulmonary clinic in 2020, has not followed up since.
Will recommend outpatient follow-up after discharge.
PT/OT, evals
Diagnostic Data:
CXR 11/22/24-Similar appearance of the basilar patchy airspace opacities, more pronounced on the right, which may represent pneumonia or pneumonitis.
CXR 11/16/2024: Some suspected patchy bilateral perihilar opacities which could represent pneumonitis. Pulmonary vascularity at least top normal.
Chest x-ray 01/28/2024-left basilar opacification without change
Chest x-ray 01/29/2024-no significant changes with multifocal pneumonia and atelectasis
CT chest 01/21/24-multiple pulmonary nodules stable dating back to 02/06/23-over 10 nodules, less than [address] 01/28/2024-no central pulmonary emboli, bilateral lower lobe consolidations left greater than right likely representing atelectasis and pneumonia
Chest x-ray 01/24/24-large dense lower lobe and lingular airspace disease consistent with pneumonia
CXR 01/25/2024: Endotracheal tube tip projects in mid thoracic trachea. Nasoenteric tube courses below the diaphragm, tip is excluded by collimation.
Unchanged left mid/lower lung opacity which may represent pneumonia.
ABG 01/30/24-30 3/84/7.52-decrease minute ventilation-rate decreased to 12
VBG 01/31/24-40 6/124/7.4
VBG 02/01/24-38/180/7.48-pulse oximetry does not correlate and routinely underestimates PaO2
ABG 01/29/24-40 8/183/7 0.4-100% saturation on ABG and only 93% saturation on peripheral monitor
ECHO 01/24/24- Normal left ventricular size, wall thickness and systolic function. LV ejection fraction is 60-65% by visual estimation. Normal right ventricular size and function. Mild aortic stenosis.
Estimated pulmonary artery pressure of 38 mmHg assuming a right atrial pressure of 3 mmHg. Compared to prior from February 12, 2022, mild aortic stenosis is seen.
-----
Total time spent today was 50 minutes for this encounter. Time includes reviewing laboratory test/imaging results, reviewing pertinent medical records, obtaining and reviewing medical history, performing an appropriate exam, ordering medications,
tests and procedures. Time also includes documentation of this encounter, coordinating patient care and communicating with other healthcare professionals. Total time does not include separately billed tests performed on this date of service.
Subjective Data
-
Date of Service:
Date of Service: November 23, 2024
Chief Complaint: Pulmonary Follow Up
Subjective:
Remains on 5L NC, baseline use of 2L
No new complaints
Sitting in chair
Objective Data
Data Reviewed
Vital Signs / I&O / Oxygen:
Vital Signs
Temp Pulse Resp BP Pulse Ox
97.9 F 86 24 145/85 96
11/23/24 07:06 11/23/24 08:18 11/23/24 08:18 11/23/24 06:00 11/23/24 08:18
Intake and Output
11/22/24 11/23/24 11/24/24
06:59 06:59 06:59
Intake Total 1120 / 1120 480 / 480
Output Total 350 / 350 1700 / 1700
Balance 770 / 770 -1220 / -1220
SaO2 96
Nasal Cannula flow liters per 5
minute
Physical Exam
General: Respiratory Distress (negative), Comfortable, Chills (negative) and Sweats (negative)
HEENT: Normocephalic and Anicteric
Cardiovascular: S1-S2, Rub (negative) and Peripheral Edema (trace CHUN bilaterally)
Respiratory: Clear, Wheeze (negative), Rhonchi (negative), Non-Labored Respirations and Stridor (negative)
GI: Soft, Non Distended, Non Tender and Normal Bowel Sounds
Neurology: Awake, Alert, Oriented, No Motor Deficits and Tremors (negative)
Skin: Warm, Dry, Cyanosis (negative) and Jaundice (negative)
Labs/Micro/Reports
Lab Data
11/23/24 04:21
11/23/24 04:21
Laboratory Results
11/22/24
18:24
pH 7.49 H
pCO2 49 H
pO2 100
HCO3 37.3 H
O2 Delivery Level
Microbiology
11/16/24 20:58 Blood/Venous Blood Culture - Final
No Growth - Final Report
11/16/24 20:58 Blood/Venous Blood Culture - Final
No Growth - Final Report
--- NOTE | 2024-11-23 09:33 | W.PN.HOSP.TC ---
Today's Communication/Plan
-
Stop antibiotics after today's dose.
Wean oxygen as able.
Follow-up chest x-ray from today.
Assessment / Plan
Assessment / Plan
HPI: 64y F with PMH significant for Bipolar / schizophrenia, hypertension and DM who presents to ED from local facility for evaluation of cough and SOB. Patient reports cough and malaise for about one week. She is chronically on 2 lpm of O2 at
home. Patient was started on doxycycline earlier today (one dose thus far) but was sent to the ED for worsening SOB.
#Sepsis
#Pneumonia/pneumonitis
CXR: Some suspected patchy bilateral perihilar opacities which could represent pneumonitis.
Pulmonary vascularity at least top normal.
Urine Legionella/strep antigens negative, COVID/flu negative, blood cx NTD
On Rocephin/doxycycline day 7-DC after today's dose.
Patient received steroids which are off now.
Pulmonary following.
#Acute on chronic hypoxic respiratory failure
#History of COPD/asthma
Currently requiring 8 L of oxygen, down from 12 L, wean as tolerated. She wears 2 L at baseline
Appreciate pulmonology input, started on Solu-Medrol 11/18- 11/22
Continue bronchodilators, theophylline
Slow to improve, status post 1 dose of Lasix 40 mg IV x 1 with improved weight, repeat chest x-ray and BNP in the a.m.
Wean oxygen as able.
#Constipation
Resolved
#Bipolar disorder/schizophrenia
#Cutting her thumbs on a soda can 11/17
Continue Klonopin, Depakote, Prozac, Zyprexa
Psychiatry consulted, Depakote level & TSH acceptable
#Essential hypertension
Increased amlodipine to 10 mg daily
#Type 2 diabetes with steroid-induced hyperglycemia
Hgb A1c 7.5, increased home Lantus 25 units daily
Increased NovoLog 18 units AC 3 times daily
#Obstructive sleep apnea
Noncompliant with her CPAP per report
#Obesity due to excess calories
Affects all aspects of care
DVT prophylaxis�Lovenox
Full code
Dispo - resides at [facility]
Patient on therapeutic dose of valacyclovir-unclear indication. Patient is not aware about the treatments. Patient came in with the same dose. Looks like she was discharged on the same dose. I am not seeing any indication for continued
treatment. Looked at [facility] for any positivity's of herpes serologies. None noted. Will discontinue valacyclovir as I am not seeing any indication for treatments or prophylaxis.
Anticipated Discharge: 24 - 48 hours
Subjective/Interval History
-
Date of Service: November 23, 2024
Patient feels better with her breathing since admission. Not back at her baseline.
Denies any chest pain, palpitations. No dizziness. No nausea vomiting. Sitting in her chair comfortably without any respiratory distress.
Objective Data
-
Labs:
Laboratory Results
11/23/24
04:21
WBC 12.5 H
Hgb 12.5
Hct 36.2 L
Plt Count 305
Sodium 140
Potassium 4.2
Chloride 100
Carbon Dioxide 34 H
BUN 35 H
Creatinine 0.8
Glucose 141 H
Calcium 9.5
Vital Signs:
Vital Signs
Temp Pulse Resp BP Pulse Ox
97.9 F 86 24 145/85 96
11/23/24 07:06 11/23/24 08:18 11/23/24 08:18 11/23/24 06:00 11/23/24 08:18
I&O
11/22/24 11/23/24 11/24/24
06:59 06:59 06:59
Intake Total 1120 / 1120 480 / 480
Output Total 350 / 350 1700 / 1700
Balance 770 / 770 -1220 / -1220
Physical Exam
-
General: Comfortable
Respiratory: Non Labored Respirations and Decreased Breath Sounds (In general); Negative Wheezes or Accessory Resp Muscle Use
Cardiac: Regular Rhythm and S1/S2; Negative Tachycardic
GI: Soft
Neuro: AO x 3
Psych: Calm
Data Reviewed
-
Labs: Labs Reviewed by me
[2024-11-23] MEDS: LANTUS 0.25 UNITS SC (09:54)
[2024-11-23] MEDS: PROTONIX 40 MG PO (09:55)
[2024-11-23] MEDS: LASIX 40 MG PO (09:55)
[2024-11-23] MEDS: ZETIA 10 MG PO (09:55)
[2024-11-23] MEDS: MUCINEX 600 MG PO ×2 (09:55→19:34)
[2024-11-23] MEDS: MIRALAX 17 GRAMS PO (09:55)
[2024-11-23] MEDS: ZYLOPRIM 300 MG PO (09:55)
[2024-11-23] MEDS: NORVASC 10 MG PO (09:55)
[2024-11-23] MEDS: THEO DUR 300 MG PO (09:55)
[2024-11-23] MEDS: VIBRAMYCIN 100 MG PO ×2 (09:56→19:34)
[2024-11-23] MEDS: FARXIGA 10 MG PO (09:56)
[2024-11-23] MEDS: PROZAC 20 MG PO (09:56)
[2024-11-23] MEDS: NOVOLOG FLEXPEN 18 UNITS SC ×3 (09:57→16:59)
[2024-11-23] MEDS: VALTREX PO (10:04)
[2024-11-23 11:04] LABS: Procalcitonin < 0.05 ng/ml (0.0-0.25)
[2024-11-23 11:38] LABS: Glucose - Point of Care 134 mg/dl (70-99)
--- NOTE | 2024-11-23 15:08 | PTCARENOTE ---
Assumed care of pt at 1500. Assessment unchanged, call azevedo in reach. pleasant and cooperative.
[2024-11-23] MEDS: LOVENOX 40 MG SC (16:59)
[2024-11-23 17:08] LABS: Glucose - Point of Care 123 mg/dl (70-99)
[2024-11-23] MEDS: MIRALAX PO (19:19)
[2024-11-23] MEDS: ZYPREXA 15 MG PO (19:34)
[2024-11-23] MEDS: DEPAKOTE ER (24 HR RELEASE) 1000 MG PO (19:34)
[2024-11-23] MEDS: KLONOPIN 1.5 MG PO (19:34)
[2024-11-23] MEDS: MELATONIN 5 MG PO (19:34)
[2024-11-23] MEDS: LIPITOR 20 MG PO (19:34)
[2024-11-23 21:43] LABS: Glucose - Point of Care 124 mg/dl (70-99)
[2024-11-24] VITALS (7 sets, daily range): BP systolic 125–152; BP diastolic 69–83; BMI 36.5
[2024-11-24 04:57] LABS: Hematocrit 37.4 % (37.0-47.0); Hemoglobin 12.4 g/dL (12.0-16.0); Mean Corp Hgb Conc. 33.2 g/dL (33.0-37.0); Mean Corpuscular Volume 107.2 fL (81.0-99.0); Platelet Count 321 10^3/uL (130-400); Red Cell Dist. Width 13.6 % (11.5-14.5)
[2024-11-24 05:16] LABS: Blood Urea Nitrogen 33 mg/dl (7-17); Calcium 9.2 mg/dl (8.4-10.2); Carbon Dioxide 33 mmol/L (22-30); Chloride 102 mmol/L (98-107); Estimated Creatinine Clearance 71 ml/min; Glucose 136 mg/dl (70-99); Potassium 4.2 mmol/L (3.5-5.1); Sodium 141 mmol/L (135-145); eGFR > 60.00
[2024-11-24] MEDS: ROCEPHIN 1000 MG IV (05:18)
[2024-11-24] MEDS: SYNTHROID 100 MCG PO (05:18)
[2024-11-24] MEDS: STERILE WATER FOR INJECTION 10 ML IV (05:18)
--- NOTE | 2024-11-24 06:07 | PTCARENOTE ---
O2 titrated as tolerated. VSS. Denies new complaints at this time. Call azevedo remains within reach. Care ongoing.
[2024-11-24 07:39] LABS: Glucose - Point of Care 132 mg/dl (70-99)
[2024-11-24] MEDS: SYMBICORT 160/4.5 MCG INHALER 2 PUFF INH ×2 (08:02→19:13)
[2024-11-24] MEDS: NOVOLOG FLEXPEN-MODERATE RESISTANCE SC ×3 (08:57→17:04)
[2024-11-24] MEDS: LANTUS 0.25 UNITS SC (08:57)
[2024-11-24] MEDS: ZETIA 10 MG PO (08:58)
[2024-11-24] MEDS: ZYLOPRIM 300 MG PO (08:58)
[2024-11-24] MEDS: PROTONIX 40 MG PO (08:58)
[2024-11-24] MEDS: FARXIGA 10 MG PO (08:58)
[2024-11-24] MEDS: MIRALAX PO ×2 (08:58→17:07)
[2024-11-24] MEDS: MUCINEX 600 MG PO ×2 (08:58→20:08)
[2024-11-24] MEDS: NORVASC 10 MG PO (08:58)
[2024-11-24] MEDS: LASIX 40 MG PO (08:58)
[2024-11-24] MEDS: VIBRAMYCIN 100 MG PO (08:59)
[2024-11-24] MEDS: PROZAC 20 MG PO (08:59)
[2024-11-24] MEDS: THEO DUR 300 MG PO (08:59)
[2024-11-24] MEDS: NOVOLOG FLEXPEN 18 UNITS SC ×2 (09:04→13:05)
--- NOTE | 2024-11-24 09:13 | W.PN.HOSP.TC ---
Today's Communication/Plan
-
Wean oxygen as able
Transfer to [facility]
DC plan
Assessment / Plan
Assessment / Plan
HPI: 64y F with PMH significant for Bipolar / schizophrenia, hypertension and DM who presents to ED from local facility for evaluation of cough and SOB. Patient reports cough and malaise for about one week. She is chronically on 2 lpm of O2 at
home. Patient was started on doxycycline earlier today (one dose thus far) but was sent to the ED for worsening SOB.
#Sepsis
#Pneumonia/pneumonitis
CXR: Some suspected patchy bilateral perihilar opacities which could represent pneumonitis.
Pulmonary vascularity at least top normal.
Urine Legionella/strep antigens negative, COVID/flu negative, blood cx NTD
Received 7 days of doxycycline/Rocephin
Procalcitonin was negative
Patient received steroids which are off now.
Pulmonary following.
Follow-up chest x-ray shows Some improved aeration of the bilateral lung bases compared to the previous chest radiograph from 11/22/2024.
#Acute on chronic hypoxic respiratory failure
#History of COPD/asthma
Currently requiring 4 L of oxygen, down from 12 L, wean as tolerated. She wears 2 L at baseline
Appreciate pulmonology input, started on Solu-Medrol 11/18- 11/22
Continue bronchodilators, theophylline
Wean oxygen as able.
#Bipolar disorder/schizophrenia
#Cutting her thumbs on a soda can 11/17
Continue Klonopin, Depakote, Prozac, Zyprexa
Psychiatry consulted, Depakote level & TSH acceptable
#Essential hypertension
Increased amlodipine to 10 mg daily
#Type 2 diabetes with steroid-induced hyperglycemia
Hgb A1c 7.5, increased home Lantus 25 units daily
Increased NovoLog 18 units AC 3 times daily
No hypoglycemia
#Obstructive sleep apnea
Noncompliant with her CPAP per report
#Obesity due to excess calories
Affects all aspects of care
DVT prophylaxis�Lovenox
Full code
Dispo - resides [facility]
Transferred to [facility]
Continue with PT and OT
DC planning
Anticipated Discharge: Within 24 hours
Subjective/Interval History
-
Date of Service: November 24, 2024
Feeling improved. Denies shortness of breath at rest today. No chest pain. Tolerating diet.
Objective Data
-
Labs:
Laboratory Results
11/24/24
04:20
WBC 11.3 H
Hgb 12.4
Hct 37.4
Plt Count 321
Sodium 141
Potassium 4.2
Chloride 102
Carbon Dioxide 33 H
BUN 33 H
Creatinine 0.8
Glucose 136 H
Calcium 9.2
Vital Signs:
Vital Signs
Temp Pulse Resp BP Pulse Ox
98 F 81 16 126/77 92
11/24/24 07:01 11/24/24 08:04 11/24/24 08:04 11/24/24 06:00 11/24/24 08:04
I&O
11/23/24 11/24/24 11/25/24
06:59 06:59 06:59
Intake Total 480 / 480
Output Total 1700 / 1700 300 / 300
Balance -1220 / -1220 -300 / -300
Physical Exam
-
General: Comfortable
Respiratory: Non Labored Respirations; Negative Wheezes or Accessory Resp Muscle Use
Cardiac: Regular Rhythm and S1/S2; Negative Tachycardic
GI: Soft
Neuro: AO x 3
Psych: Calm; Negative Confused
Data Reviewed
-
Labs: Labs Reviewed by me
--- NOTE | 2024-11-24 09:25 | W.PN.PUL3 ---
Addendum entered and electronically signed by Radha Rea DO 11/24/24 15:10:
Patient requires Noninvasive volume ventilation with a target tidal volume due to Acute on Chronic Respiratory Failure caused by COPD. Patient requires Auto EPAP to prevent their airway from collapsing and battery backup in case of power outages
which exceeds the capability of a RAD. Patient is currently on NIV and will need to continue NIV therapy at home. Without NIV therapy, patient is at risk of elevated PaCO2 levels post discharge.
Original Note:
Today's Communication / Plan
-
She is now weaned to 3L, baseline use of 2L noted
No new complaints
Off steroids, abx
Discharge planning per team to facility
We will sign off at this time, please call with questions
Assessment
-
Patient is a 64 old female with known history of underlying schizophrenia and bipolar disorder with COPD asthma overlap syndrome along with untreated obstructive sleep apnea and obesity who was admitted to the hospital on 11/16 with increasing
shortness of breath. Patient was noted to be febrile along with evidence of pneumonia and was started on antibiotic and supplemental oxygen. Patient is chronically on 2 L oxygen at home and was having dry cough going on for about a week's time.
Patient has been on antibiotics and currently requiring 12 L supplemental oxygen and saturating about 92%. Pulmonary consultation was requested for further input.
Acute on chronic hypoxic respiratory failure with pneumonia
Chronic hypercapnic respiratory failure with underlying sleep apnea
H/o COPD/Asthma overlap with history of severely elevated eosinophils
Pulmonary nodules.
Conditions present prior to admission:
CHF-preserved EF with normal RV size and function
Mild aortic stenosis
Asthma without acute exacerbation
History of mild restrictive lung disease (post�bronchodilator FVC: 69% / 2.04 L via spirometry on 12/12/2020)
CIELO on CPAP
Bipolar/Schizophrenia.
Borderline personality disorder
DM type II c/b hyperglycemia
Hypertension.
Hypothyroidism
Obesity.
Anemia.
GERD.
Appendectomy. Cholecystectomy
Plan
Clinically and radiologically improving. She is weaned down to 3L now
11/18, ABG reviewed, pO2 81, wide A-a gap
Atelectasis/obesity/RLD contributing to hypoxemia
She notes baseline use of 2L at home
Today is last day of IV Solu-Medrol 40 mg daily (plan for 5 days total) considering the severity of pneumonia and associated hypoxic respiratory failure
Now weaned completely off steroids, no taper
MRSA screen negative, also negative Legionella and streptococcal antigen. Influenza A, B, COVID-19 screen negative. Blood cultures have stayed negative so far
Currently on ceftriaxone and doxycycline, WBC count improving, 9.5 on 11/21 compared to 17.3 on admission
Incentive spirometry, sit in chair as tolerated. Suspect atelectasis with her body habitus also adding to hypoxia. Poor respiratory reserve
PCT negative, can stop abx
Speech eval in past with mild dysphagia- VSE 02/07/24: Mild oropharyngeal dysphagia noted. Supraglottic penetration which fully cleared (PAS 2) noted with mildly thick liquids via tsp and consecutive straw sips. Supraglottic penetration which did
not clear (PAS 3) noted with thin liquid via single and consecutive straw sips as well as mildly thick liquids via single straw sip. No significant pharyngeal residue noted.
Aspiration risk noted
Patient declines BiPAP, however she did wear CPAP overnight (11/21 - 11/22)
Arterial blood gas reviewed, pCO2 of 51 within normal pH, consistent with compensated hypercapnia. No mental status changes noted
Can consider diamox if pH >7.5 and serum HCO3 approaches 40 --> continue to occasionally monitor VBG
She has a history of eosinophilia with absolute eosinophil count of 2500 on 04/12/2023. Since January 2024, she has been between .
Currently patient does not seem to have active wheezing
No prior history of smoking however patient has secondhand smoke exposure as a child.
Continue Symbicort as prescribed, also has been on theophylline chronically.
Continue as needed DuoNeb; if patients hypoxia does not continue to steadily improve, will consider changing inhalers to nebulized form and possibly raising steroids
Steroid added for the severity of underlying pneumonia --> last day today of steroids
proBNP 462
History of CHF
Resumed on home lasix
Post�bronchodilator FVC: 69% / 2.04 L via spirometry on 12/12/2020; postbronchodilator FVC: 42% predicted (1.18 L) with TLC 124% and VC 40% predicted via PFTs from 03/07/2022 (through [facility]). She did have difficulty following instructions per
occupational therapy technician during this test.
Suspect restriction related to underlying obesity. Needs full pulmonary function testing including lung volumes, diffusion capacity assessment as well as 6-minute walk test as outpatient
CT chest reviewed from January 2024, multiple 1 to 2 mm nodules, stable since 2022 suggestive of benign etiology. No prior history of smoking
Needs outpatient follow-up with pulmonary service
Patient was seen at [facility] pulmonary clinic in 2020, has not followed up since.
Will recommend outpatient follow-up after discharge.
PT/OT, evals
Diagnostic Data:
CXR 11/22/24-Similar appearance of the basilar patchy airspace opacities, more pronounced on the right, which may represent pneumonia or pneumonitis.
CXR 11/16/2024: Some suspected patchy bilateral perihilar opacities which could represent pneumonitis. Pulmonary vascularity at least top normal.
Chest x-ray 01/28/2024-left basilar opacification without change
Chest x-ray 01/29/2024-no significant changes with multifocal pneumonia and atelectasis
CT chest 01/21/24-multiple pulmonary nodules stable dating back to 02/06/23-over 10 nodules, less than [address] 01/28/2024-no central pulmonary emboli, bilateral lower lobe consolidations left greater than right likely representing atelectasis and pneumonia
Chest x-ray 01/24/24-large dense lower lobe and lingular airspace disease consistent with pneumonia
CXR 01/25/2024: Endotracheal tube tip projects in mid thoracic trachea. Nasoenteric tube courses below the diaphragm, tip is excluded by collimation.
Unchanged left mid/lower lung opacity which may represent pneumonia.
ABG 01/30/24-30 3/84/7.52-decrease minute ventilation-rate decreased to 12
VBG 01/31/24-40 6/124/7.4
VBG 02/01/24-38/180/7.48-pulse oximetry does not correlate and routinely underestimates PaO2
ABG 01/29/24- 8/183/7 0.4-100% saturation on ABG and only 93% saturation on peripheral monitor
ECHO 01/24/24- Normal left ventricular size, wall thickness and systolic function. LV ejection fraction is 60-65% by visual estimation. Normal right ventricular size and function. Mild aortic stenosis.
Estimated pulmonary artery pressure of 38 mmHg assuming a right atrial pressure of 3 mmHg. Compared to prior from February 12, 2022, mild aortic stenosis is seen.
-----
Total time spent today was 35 minutes for this encounter. Time includes reviewing laboratory test/imaging results, reviewing pertinent medical records, obtaining and reviewing medical history, performing an appropriate exam, ordering medications,
tests and procedures. Time also includes documentation of this encounter, coordinating patient care and communicating with other healthcare professionals. Total time does not include separately billed tests performed on this date of service.
Subjective Data
-
Date of Service:
Date of Service: November 24, 2024
Chief Complaint: Pulmonary Follow Up
Subjective:
Patient is 96% on 3L NC, close to baseline
No new complaints
Objective Data
Data Reviewed
Vital Signs / I&O / Oxygen:
Vital Signs
Temp Pulse Resp BP Pulse Ox
98 F 81 16 126/77 92
11/24/24 07:01 11/24/24 08:04 11/24/24 08:04 11/24/24 06:00 11/24/24 08:04
Intake and Output
11/23/24 11/24/24 11/25/24
06:59 06:59 06:59
Intake Total 480 / 480
Output Total 1700 / 1700 300 / 300
Balance -1220 / -1220 -300 / -300
SaO2 92
Nasal Cannula flow liters per 6
minute
Physical Exam
General: Respiratory Distress (negative), Comfortable, Chills (negative) and Sweats (negative)
HEENT: Normocephalic and Anicteric
Cardiovascular: S1-S2, Rub (negative) and Peripheral Edema (trace CHUN bilaterally)
Respiratory: Clear, Wheeze (negative), Rhonchi (negative), Non-Labored Respirations and Stridor (negative)
GI: Soft, Non Distended, Non Tender and Normal Bowel Sounds
Neurology: Awake, Alert, Oriented, No Motor Deficits and Tremors (negative)
Skin: Warm, Dry, Cyanosis (negative) and Jaundice (negative)
Labs/Micro/Reports
Lab Data
11/24/24 04:20
11/24/24 04:20
Microbiology
11/16/24 20:58 Blood/Venous Blood Culture - Final
No Growth - Final Report
11/16/24 20:58 Blood/Venous Blood Culture - Final
No Growth - Final Report
--- NOTE | 2024-11-24 10:59 | CM ---
Addendum entered by Albina Cordova 11/24/24 17:00:
The machine was changed to BIPAP and fine with Pulmonary. WHIT Montemayor faxed the rest of the clinical to [facility] & they will be out there tomorrow morning. WHIT Montemayor to arrange transport for early afternoon.
WHIT Montemayor Faxed medication list to JOE Ko at [facility] to review ahead of time. Referral made to [facility] after confirming with [facility] this is fine.
PLAN: BIPAP delivered tomorrow then patient return.
Original Note:
Following up on Patient.
WHIT Montemayor reached out to [facility]'s Liaison Violetta #[phone] to inquire what machine she has at home and to ensure she has a working machine at home.
WHIT Montemayor sent clincal to [facility] F: #[phone] and waiting for some more instructions. WHIT Montemayor saw in the notes that the patient was on CPAP and informed Violetta.
Patient is still clearing therapy and [facility]ian, Slot Machine Department Floorperson at [facility] informed.
PLAN: Set up working CPAP machine at home and Home PT.
[2024-11-24 11:44] LABS: Glucose - Point of Care 141 mg/dl (70-99)
[2024-11-24 16:53] LABS: Glucose - Point of Care 66 mg/dl (70-99)
[2024-11-24] MEDS: LOVENOX 40 MG SC (17:04)
[2024-11-24 17:13] LABS: Glucose - Point of Care 98 mg/dl (70-99)
[2024-11-24] MEDS: NOVOLOG FLEXPEN SC (17:22)
[2024-11-24] MEDS: TYLENOL 650 MG PO (18:13)
[2024-11-24 19:07] LABS: Glucose - Point of Care 223 mg/dl (70-99)
[2024-11-24] MEDS: DEPAKOTE ER (24 HR RELEASE) 1000 MG PO (20:08)
[2024-11-24] MEDS: LIPITOR 20 MG PO (20:08)
[2024-11-24] MEDS: MIRALAX 17 GRAMS PO (20:08)
[2024-11-24] MEDS: MELATONIN 5 MG PO (20:08)
[2024-11-24] MEDS: ZYPREXA 15 MG PO (20:08)
[2024-11-24] MEDS: KLONOPIN 1.5 MG PO (20:08)
--- NOTE | 2024-11-24 21:37 | PTCARENOTE ---
Caring for pt overnight. aaox3, pleasant. Denies pain or SOB. Remains on 3LNC & cpap hs. No assessment changes. Pt took pills whole with water, no issues. Rings appropriately. Will monitor.
[2024-11-24 21:50] LABS: Glucose - Point of Care 256 mg/dl (70-99)
--- NOTE | 2024-11-25 02:28 | DOWNTIME ---
There was a [employer] Downtime on 11/25/2024 from 0100 to 11/25/2024 at 0215. Downtime documentation of patient's care, including medication administrations, has been reconciled in the electronic record per guidelines. Refer to the
patient's paper chart under the miscellaneous tab to see printed paper medication records and downtime forms.
[2024-11-25 03:19] LABS: Glucose - Point of Care 143 mg/dl (70-99)
[2024-11-25 05:00] VITALS: BMI 35.5
[2024-11-25] MEDS: SYNTHROID 100 MCG PO (06:57)
[2024-11-25 07:02] VITALS: BP 135/71
[2024-11-25 07:17] LABS: Glucose - Point of Care 139 mg/dl (70-99)
[2024-11-25] MEDS: ZETIA 10 MG PO (07:29)
[2024-11-25] MEDS: FARXIGA 10 MG PO (07:29)
[2024-11-25] MEDS: MUCINEX 600 MG PO (07:29)
[2024-11-25] MEDS: ZYLOPRIM 300 MG PO (07:29)
[2024-11-25] MEDS: LASIX 40 MG PO (07:29)
[2024-11-25] MEDS: THEO DUR 300 MG PO (07:29)
[2024-11-25] MEDS: NORVASC 10 MG PO (07:29)
[2024-11-25] MEDS: PROTONIX 40 MG PO (07:29)
[2024-11-25] MEDS: MIRALAX 17 GRAMS PO (07:29)
[2024-11-25] MEDS: PROZAC 20 MG PO (07:30)
[2024-11-25] MEDS: SYMBICORT 160/4.5 MCG INHALER 2 PUFF INH (07:50)
[2024-11-25] MEDS: NOVOLOG FLEXPEN 18 UNITS SC (07:58)
[2024-11-25] MEDS: NOVOLOG FLEXPEN-MODERATE RESISTANCE SC (07:59)
[2024-11-25] MEDS: LANTUS 0.25 UNITS SC (08:03)
--- NOTE | 2024-11-25 08:40 | VNURNOTE ---
Rec'ed request for referral for [facility]. Chart reviewed. Patient had our services in the recent past- last month. Call placed to contact, Mirian Tavarez, no answer, left message.
CPAP with [employer] arranged by CM.
[facility] referral placed in [facility].
--- NOTE | 2024-11-25 09:09 | W.DCSUMMARY ---
Discharge Summary
Discharge Data
Date of Admission: 11/16/24
Date of Discharge: 11/25/24
-
Pending Results: No
Hospital Course
Primary diagnosis:
Sepsis
Pneumonia/pneumonitis
Acute on chronic hypoxic respiratory failure
History of COPD/asthma
History of chronic hypoxic respiratory failure on home O2
Secondary diagnosis:
Bipolar disorder/is Afridi
Essential hypertension
Type 2 diabetes mellitus on insulin
Obstructive sleep apnea
Hospital course:
64-year-old lady presented from local senior living for evaluation of cough and progressive shortness of breath. Ongoing for a week. Chronically on 2 L of oxygen at home. She was started on doxycycline but sent to ED for worsening shortness of
breath. She met the criteria for sepsis. Chest x-ray raise suspicion for patchy bilateral perihilar opacities concerning for pneumonia/pneumonitis. A culture data was negative. She was treated as community-acquired pneumonia with doxycycline and
Rocephin which she finished here. There was also associated COPD/asthma flare for which she received steroids and finish them as well. Follow-up chest x-ray showed improvement in aeration. Was seen by pulmonary during the stay here. She was
requiring higher FiO2 than her baseline but was able to wean down to 2 L prior to discharge. She has not follow-up with pulmonary since 2020 and was encouraged to see them as an outpatient.
Pulmonary felt patient required noninvasive volume ventilation with target tidal volume due to acute on chronic respiratory failure caused by COPD. Patient requires auto EPAP to prevent air airway from collapsing and battery backup in case of power
outages. She will need continuous NIV therapy at home and that was arranged on discharge.
We need her to go up on her dose of Norvasc for blood pressure management. Increased from 5 mg to 10 mg.
Her hemoglobin A1c was 7.5. Increase the dose of Lantus at night. She is on mealtime insulin which should be continued as prior before.
Today she is inquiring about discharge home. She feels at her baseline. Denies any shortness of breath or chest pain. She is back on 2 L. Afebrile. Pulse 60. Blood pressure 135/71. Chest without wheeze. No respiratory distress noted.
PT evaluation noted-recommends home health.
Medically stable for discharge back to her senior living today.
Consultants on board:
Pulmonary-Gigi Alva
Portions of this chart may have been created with voice recognition software. Occasional wrong word or 'sound alike' substitutions may have occurred due to the inherent limitations of voice recognition software.
Discharge Plan
-
Patient Disposition: Home with Home Care
Discharge Diagnosis/Procedures: Sepsis, pneumonia/pneumonitis, acute on chronic hypoxic respiratory failure
Diet: Diabetic, Carb Controlled
Activity: As tolerated
Driving Restrictions: No driving
Bathing Restrictions: None
Other Services: PT and OT
Specialty Instructions: Weigh Daily- Call MD for wt gain/loss 3 lbs overnight/5 lbs in 1 week
Referrals:
Ramo Castaneda MD [Active, Pulmonary Medicine] - in two to four weeks
UNKNOWN - PT DOES,NOT KNOW [Family Provider]
Prescriptions:
New
amlodipine 10 mg Tablet
10 mg PO DAILY Qty: 30 0RF
Continued
metformin 1,000 MG tablet
1,000 mg PO BID
allopurinol 300 MG tablet
300 mg PO DAILY
cholecalciferol (vitamin D3) 1,000 UNITS tablet
1,000 units PO DAILY
acetaminophen 325 MG tablet
650 mg PO Q6HPRN PRN (Reason: back pain)
olanzapine [Zyprexa] 10 mg Tablet
15 mg PO HS
Apidra SoloStar U-100 Insulin 100 unit/mL Insulin Pen
8 unit SC DAILY
furosemide 40 MG tablet
40 mg PO DAILY
benzonatate 100 mg Capsule
100 mg PO TIDPRN PRN (Reason: COUGH)
ezetimibe [Zetia] 10 mg Tablet
10 mg PO DAILY
Baqsimi 3 mg/actuation [place],Non-Aerosol
3 mg INTRANASAL DAILYPRN PRN (Reason: severe hypoglycemia )
polyethylene glycol 3350 [Miralax] 17 gram powder in packet
17 g PO BID
docusate sodium 100 mg Capsule
100 mg PO BID
guaifenesin [Mucinex] 600 mg Tablet Extended Release 12hr
600 mg PO BID
albuterol sulfate 2.5 mg /3 mL (0.083 %) Solution For Nebulization
2.5 mg INHALATION R Q6HPRN PRN (Reason: sob)
lorazepam 2 mg Tablet
2 mg PO Q8HPRN PRN (Reason: anxeity)
benzoyl peroxide 5 % Cleanser
1 applic TOPICAL DAILY
clonazepam 1 mg tablet
1.5 mg PO HS
olanzapine 5 mg Tablet
5 mg PO [id number] PRN (Reason: Agitation)
pantoprazole 40 mg Tablet,Delayed Release (Dr/Ec)
40 mg PO DAILY
theophylline 300 mg Capsule,Extended Release 24hr
300 mg PO DAILY
ibuprofen [Advil] 200 mg Tablet
600 mg PO Q8HPRN PRN (Reason: severe pain)
atorvastatin [Lipitor] 20 mg Tablet
20 mg PO HS
therapeutic multivitamin Tablet
1 tab PO DAILY
levothyroxine [Synthroid] 100 mcg Tablet
100 mcg PO DAILY
divalproex 500 mg Tablet Extended Release 24 Hr
1,000 mg PO HS
gabapentin 100 mg Capsule
100 mg PO TIDPRN PRN (Reason: mild pain)
Apidra SoloStar U-100 Insulin 100 unit/mL Insulin Pen
9 sliding scale dose SC BID@1200,1600
Dulera 100-5 mcg/actuation Hfa Aerosol Inhaler
1 puff INHALATION R BID
dapagliflozin propanediol [Farxiga] 10 mg Tablet
10 mg PO DAILY
furosemide [Lasix] 20 mg tablet
40 mg PO DAILYPRN PRN (Reason: 6 hours aftr monring dose.fluid)
melatonin 5 mg Tablet
5 mg PO HS Qty: 0 0RF
dextromethorphan-guaifenesin [Guaiasorb DM] 10-100 mg/5 mL Liquid
10 ml PO Q6HPRN PRN (Reason: cough)
magnesium hydroxide [Milk of Magnesia] 400 mg/5 mL Suspension
2,400 mg PO DAILYPRN PRN (Reason: constipation)
fluoxetine 20 mg Tablet
20 mg PO DAILY
alum-mag hydroxide-simeth [Iris-Lanta] 200-200-20 mg/5 mL Suspension
15 ml PO BIDPRN PRN (Reason: stomach issuses)
Changed
insulin glargine [Lantus Solostar U-100 Insulin] 100 unit/mL (3 mL) Insulin Pen
25 unit SC DAILY Qty: 0 0RF
Discontinued
ondansetron HCl 4 MG tablet
4 mg PO Q8HPRN PRN (Reason: nausea)
loperamide 2 mg Tablet
2 mg PO Q6HPRN PRN (Reason: diarrhea)
valacyclovir 500 mg Tablet
1,000 mg PO BID
amlodipine 5 mg Tablet
5 mg PO DAILY
doxycycline hyclate 100 mg Tablet
100 mg PO BID
Rx Instructions:
for 10 days starting 11/16/24
Discharge Orders:
Discharge Patient (As Directed); Ordered 11/25/24
Ordered By: Hesham Thayer
Discharge Date and Time
Print Language: SUDANESE
--- NOTE | 2024-11-25 10:22 | CM ---
Addendum entered by Albina Cordova 11/25/24 12:44:
RN at [facility] called and asked if 2 medications could be called into their Pharmacy that are new. WHIT Montemayor as the Medical Team to call in which they did.
PLAN: [facility].
Original Note:
Following up on Patient.
RN stated that patient is ready and Medical Team put in the discharge. BIPAP should be there before 2pm. Patient returning to [facility].
WHIT Montemayor informed JOE Wong there re: discharge time.
Report: [phone] option 1

Patient aware and no other needs.
[2024-11-25 11:38] LABS: Glucose - Point of Care 169 mg/dl (70-99)
[2024-11-25] MEDS: NOVOLOG FLEXPEN 14 UNITS SC (12:39)
[2024-11-25] MEDS: NOVOLOG FLEXPEN-MODERATE RESISTANCE 1 UNITS SC (12:39)
[2024-11-25 14:25] VITALS: BP 144/73
--- NOTE | 2024-11-25 14:27 | PTCARENOTE ---
Rec'd discharge orders on pt from hospitalist; VAT notified to removes Pt's Midline catheter. Report given to RN @ [facility]; Ambulance transport arrived ~ 1415, report given. D/c'd back to [facility].
== END 2024-11-25 14:45 | disposition home health service (06) | DRG 871 ==
LOC: IMU 22:47
PROVIDERS: Family Medicine; Internal Medicine; Internal Medicine Critical Care Medicine; Nurse Practitioner Family; Physician Assistant Medical; ADMITTING PHYSICIAN Hospitalist; ATTENDING PHYSICIAN Internal Medicine; CONSULT PHYSICIAN Internal Medicine; EMERGENCY PHYSICIAN Emergency Medicine; OTHER PHYSICIAN Psychiatry & Neurology Psychiatry
PROC: 5A09357 Assistance with Respiratory Ventilation, Less than 24 Consecutive Hours, Continuous Positive Airway Pressure (ICD-10-PCS; 2024-11-17)
DX: A41.9 Sepsis, unspecified organism (principal); J18.9 Pneumonia, unspecified organism; J96.21 Acute and chronic respiratory failure with hypoxia; J96.22 Acute and chronic respiratory failure with hypercapnia; J44.0 Chronic obstructive pulmonary disease with (acute) lower respiratory infection; I50.32 Chronic diastolic (congestive) heart failure; F31.9 Bipolar disorder, unspecified; F25.9 Schizoaffective disorder, unspecified; I11.0 Hypertensive heart disease with heart failure; E03.9 Hypothyroidism, unspecified; G47.33 Obstructive sleep apnea (adult) (pediatric); E11.9 Type 2 diabetes mellitus without complications; D63.8 Anemia in other chronic diseases classified elsewhere; E66.9 Obesity, unspecified; K21.9 Gastro-esophageal reflux disease without esophagitis; J98.4 Other disorders of lung; E78.00 Pure hypercholesterolemia, unspecified; F41.9 Anxiety disorder, unspecified; R91.8 Other nonspecific abnormal finding of lung field; K59.00 Constipation, unspecified; Z77.22 Contact with and (suspected) exposure to environmental tobacco smoke (acute) (chronic); S61.012A Laceration without foreign body of left thumb without damage to nail, initial encounter; S61.011A Laceration without foreign body of right thumb without damage to nail, initial encounter; W26.8XXA Contact with other sharp object(s), not elsewhere classified, initial encounter; Z11.52 Encounter for screening for COVID-19; Z68.36 Body mass index [BMI] 36.0-36.9, adult; Z79.84 Long term (current) use of oral hypoglycemic drugs; Z79.890 Hormone replacement therapy; Z79.899 Other long term (current) drug therapy; Z79.4 Long term (current) use of insulin; Z99.81 Dependence on supplemental oxygen; Z91.199 Patient's noncompliance with other medical treatment and regimen due to unspecified reason
CPT/HCPCS: 36600; 71045; 71046; 80048; 80053; 80164; 82805; 82962; 83036; 83605; 83735; 83880; 84100; 84145; 84439; 84443; 84484; 85025; 85027; 87040; 87070; 87449; 87502; 87811; 87899; 93005; 93306; 94640; 94660; 96365; 96366; 96375; 97116; 97163; 97167; 97530; 97535; 99291

== ENCOUNTER 2024-12-25 06:46 | Inpatient (IN) | payer OTHER, SELFPAY ==
[2024-12-24 23:54] VITALS: BP 127/59
[2024-12-25] VITALS (54 sets, daily range): BP systolic 95–186; BP diastolic 44–115; BMI 39.2; BMI 38.3
[2024-12-25] MEDS: NSS 1000 IV ×2 (00:39→05:04)
[2024-12-25] MEDS: ROCEPHIN 2000 MG IV (00:39)
[2024-12-25 00:44] LABS: Hematocrit 35.3 % (37.0-47.0); Hemoglobin 12.0 g/dL (12.0-16.0); Mean Corp Hgb Conc. 34.0 g/dL (33.0-37.0); Mean Corpuscular Volume 109.3 fL (81.0-99.0); Nucleated Red Blood Cells % 0 %; Platelet Count 271 10^3/uL (130-400); Red Cell Dist. Width 13.8 % (11.5-14.5)
[2024-12-25 00:49] LABS: ALT (SGPT) 23 U/L (0-35); AST (SGOT) 28 U/L (14-36); Albumin 3.8 g/dl (3.5-5.0); Alkaline Phosphatase 89 U/L (38-126); Blood Urea Nitrogen 27 mg/dl (7-17); Calcium 9.0 mg/dl (8.4-10.2); Carbon Dioxide 33 mmol/L (22-30); Chloride 101 mmol/L (98-107); Estimated Creatinine Clearance 66 ml/min; Glucose 164 mg/dl (70-99); Potassium 4.0 mmol/L (3.5-5.1); Sodium 142 mmol/L (135-145); Total Protein 6.2 g/dl (6.3-8.2); eGFR > 60.00
--- NOTE | 2024-12-25 02:39 | ED.GENMED ---
History of Present Illness
General
Chief Complaint: Breathing Problem
Source: patient
Exam Limitations: none
Time Seen by Provider: 12/25/24 00:03
Nursing documentation reviewed up to this point in time: agreed with
History of Present Illness
History of Present Illness:
Note:
CHIEF COMPLAINT(S)
Elevated temperature, dyspnea, history of recent admission
HISTORY OF PRESENT ILLNESS
The patient is a 64-year-old female with a history of pneumonia who presented with an elevated temperature. She was evaluated by her family doctor earlier today and was prescribed doxycycline, but the precise timing of administration is unclear.
Following the visit, she developed further symptoms, details of which were not explicitly documented. It was noted that she might have received acetaminophen (Tylenol) prior to arriving at the emergency department; however, the exact timing in
relation to her transportation by ambulance is not confirmed.
PHYSICAL EXAM
General: Alert, minimal acute distress. Obese
Skin: Warm, dry.
Head: Normocephalic, atraumatic.
Neck: Supple, trachea midline.
Eye Ears, Nose, Mouth and Throat: Oral mucosa moist.
Cardiovascular: Normal peripheral perfusion, No edema.
Respiratory: Respirations are non-labored.
Gastrointestinal: Abdomen nondistended
Back: Normal range of motion, Normal alignment.
Musculoskeletal: Normal ROM, normal strength.
Neurological: Alert and oriented to person, place, time, and situation, No focal neurological deficit observed.
Psychiatric: Cooperative, appropriate mood & affect.
DIFFERENTIAL DIAGNOSIS
The Differential Diagnosis includes, in no particular order and is not limited to:
1. Viral infection
2. Bacterial pneumonia
3. Upper respiratory infection
4. Acute bronchitis
5. Asthma exacerbation
6. Urinary tract infection
7. Gastroenteritis
8. Dengue fever
9. Tuberculosis
10. Influenza
Disposition:
SUMMARY OF ENCOUNTER
The patient is a 64-year-old female who arrived from a skilled nursing with altered mental status (AMS), presenting with dyspnea and hypoxia. A chest x-ray revealed subtle right-sided pneumonia. Despite normal white blood cell count, the patient has
been experiencing fevers. Considering these findings, the decision was made to admit the patient to the hospital for further management.
DISPOSITION
Admit to hospital service.
ASSESSMENT
The patient is likely suffering from bacterial pneumonia contributing to her respiratory distress and fever.
INDEPENDENT REVIEW OF LABS AND INTERPRETATION OF TESTS
My independent review of the chest x-ray interpretation is subtle right-sided pneumonia.
My independent review of the CBC indicates the white blood cell count is normal.
MEDICAL DECISION MAKING
1. Number and Complexity of Problems Addressed:
Chronic conditions affecting care: History of pneumonia.
2. Data:
Category 1
- Tests and documents reviewed: Chest x-ray, CBC.
3. Risk:
Consideration of Admission/Observation: Escalation of care including admission was considered given the complexity and risk of the patients presenting complaint and underlying comorbidities. Ultimately, the decision was made to admit the patient for
further evaluation and management of pneumonia.
DIAGNOSIS
Bacterial pneumonia - ICD-10 code J18.9
Past History
Past History
ED Past Medical History: Asthma, CHF, COPD, HTN, Hypercholesterolemia, IDDM, Hypothyroidism, Psychiatric (Schizoaffective disorder, borderline personality disorder, major depressive disorder, suicide attempt) and Other (SBO,)
ED Past Surgical History: Appendectomy and Cholecystectomy
Social History
Tobacco: Non-smoker
Alcohol: None
Drug: None
Personal: Single
Living: other (correction)
Employment: Not employed
Family History
Family History: Unable to obtain
Review of Systems
Review of Systems
Allergies reviewed?: Yes
All Other Systems: ROS reviewed and negative except as documented in HPI and ROS
Phy Exam
Physical Exam
Physical Exam:
.
Scores
Heart Failure Risk
Heart Failure Risk Score: Not Applicable
Sepsis
Sepsis Screening
Sepsis Assessment: Sepsis Ruled Out
Sepsis Screen
Sepsis Screen: Sepsis Ruled Out
Date: 12/25/24
Time: 02:48
Course
Orders/Labs/Results
Orders:
Orders
12/25/24 00:20
Electrocardiogram (*1) Urgent
Reason for Study: Other
Other Reason for Exam: Possible Sepsis
Cardiac Monitoring- Treatment ONCE
IV Insert/Care/Rem.- Treatment PRN
Straight cath- Treatment ONCE
O2 Therapy [RESP] Urgent
Titrate/Wean O2 to maintain O2 sat greater than (%): 93
Special Instructions: TO MAINTAIN CONTINUOUS O2 SATS > OR = 93%
Pulse Ox/cont/shift [RESP] Urgent
Quantity: 1
Special Instructions: CONTINUOUS
12/25/24 00:21
EKG- Treatment ONCE
12/25/24 00:25
Complete Blood Count/With Diff Urgent
Comprehensive Metabolic Panel Urgent
Lactic Acid Q4H
Comment: ON ICE, CANCEL 2ND ORDER IF FIRST LACTIC ACID LEVEL <2
Blood Culture Q20M
[place] Source: Blood/Venous
Specimen Description:
Comment: Urgent from separate sites. If patient screens positive for possible sepsis
12/25/24 00:28
Blood Culture Q20M
[place] Source: Blood/Venous
Specimen Description:
Comment: Urgent from separate sites. If patient screens positive for possible sepsis
12/25/24 00:35
CefTRIAXone [Rocephin] 2,000 mg IV NOW STA
12/25/24 00:38
Sterile Water [Sterile Water For Injection] 20 ml .ROUTE .STK-MED
12/25/24 00:39
CR Chest - 2 Views Urgent
Comment:
Reason For Exam: dyspnea
12/25/24 00:45
0.9% Sodium Chloride 1000 ml [Nss] 1,000 ml IV 250 mls/hr
12/25/24 02:40
Azithromycin 500 mg/250 ml [Zithromax Infusion] 500 mg in 250 ml IV NOW
12/25/24 04:30
Lactic Acid Q4H
Comment: ON ICE, CANCEL 2ND ORDER IF FIRST LACTIC ACID LEVEL <2
Abnormal Lab Results
12/25/24
00:25
RBC 3.23 L 10^6/uL
(4.20-5.40)
Hct 35.3 L %
(37.0-47.0)
MCV 109.3 H fL
(81.0-99.0)
MCH 37.2 H pg
(27.0-31.0)
Abs Immat Gran (auto) 0.1 H 10^3/uL
(0-0.05)
Absolute Monos (auto) 1.0 H 10^3/uL
(0.1-0.6)
Immature Gran % 1.3 H %
(0-0.5)
Lymphocytes % 18.8 L %
(20.5-51.1)
Monocytes % 11.1 H %
(1.7-9.3)
Carbon Dioxide 33 H mmol/L
(22-30)
BUN 27 H mg/dl
(7-17)
Glucose 164 H mg/dl
(70-99)
Lactic Acid 2.7 H mmol/L
(0.7-2.0)
Total Protein 6.2 L g/dl
(6.3-8.2)
12/25/24 00:25
12/25/24 00:25
Vital Signs
Initial and Last Documented VS:
Initial Vital Signs
BP
127/59
12/24/24 23:54
Last Documented Vital Signs
Temp Pulse Resp BP Pulse Ox
100.4 F H 92 26 111/46 92
12/25/24 00:01 12/25/24 02:15 12/25/24 02:15 12/25/24 02:00 12/25/24 02:39
*Radiology
Radiology exam reviewed: preliminary read by ED provider (Probable right lower lobe pneumonia)
*Pulse Oximetry
SaO2: 92
Nasal Cannula flow liters per minute: 4
Patient hypoxic: no
*Critical Care Note
Total Time (30-74mins, 75-104mins- exclusive of procedures): Not Applicable
ED Attending Note
-
Portions of this chart may have been created with voice recognition software.� Occasional wrong word or��sound alike� substitutions may have occurred due to the inherent limitations of voice recognition software.
Discharge Plan
Departure
Patient Disposition: Admit
Date of Disposition: 12/25/24
Time of Disposition: 02:47
Admit to: Telemetry
Presentation/result/management discussed w/ accepting MD/DO: Hospitalist
Discharge Problem:
Acute dyspnea, Pneumonia
Prescriptions:
No Action
metformin 1,000 MG tablet
1,000 mg PO BID
allopurinol 300 MG tablet
300 mg PO DAILY
cholecalciferol (vitamin D3) 1,000 UNITS tablet
1,000 units PO DAILY
acetaminophen 325 MG tablet
650 mg PO Q6HPRN PRN (Reason: back pain)
olanzapine [Zyprexa] 10 mg Tablet
15 mg PO HS
Apidra SoloStar U-100 Insulin 100 unit/mL Insulin Pen
8 unit SC DAILY
furosemide 40 MG tablet
40 mg PO DAILY
benzonatate 100 mg Capsule
100 mg PO TIDPRN PRN (Reason: COUGH)
ezetimibe [Zetia] 10 mg Tablet
10 mg PO DAILY
Baqsimi 3 mg/actuation [place],Non-Aerosol
3 mg INTRANASAL DAILYPRN PRN (Reason: severe hypoglycemia )
docusate sodium 100 mg Capsule
100 mg PO BID
guaifenesin [Mucinex] 600 mg Tablet Extended Release 12hr
600 mg PO BID
albuterol sulfate 2.5 mg /3 mL (0.083 %) Solution For Nebulization
2.5 mg INHALATION R Q6HPRN PRN (Reason: sob)
lorazepam 2 mg Tablet
2 mg PO Q8HPRN PRN (Reason: anxeity)
benzoyl peroxide 5 % Cleanser
1 applic TOPICAL DAILY
clonazepam 1 mg tablet
1.5 mg PO HS
olanzapine 5 mg Tablet
5 mg PO [id number] PRN (Reason: Agitation)
pantoprazole 40 mg Tablet,Delayed Release (Dr/Ec)
40 mg PO DAILY
theophylline 300 mg Capsule,Extended Release 24hr
300 mg PO DAILY
ibuprofen [Advil] 200 mg Tablet
600 mg PO Q8HPRN PRN (Reason: severe pain)
atorvastatin [Lipitor] 20 mg Tablet
20 mg PO HS
therapeutic multivitamin Tablet
1 tab PO DAILY
levothyroxine [Synthroid] 100 mcg Tablet
100 mcg PO DAILY
divalproex 500 mg Tablet Extended Release 24 Hr
1,000 mg PO HS
gabapentin 100 mg Capsule
100 mg PO TIDPRN PRN (Reason: mild pain)
Apidra SoloStar U-100 Insulin 100 unit/mL Insulin Pen
9 sliding scale dose SC BID@1200,1600
dapagliflozin propanediol [Farxiga] 10 mg Tablet
10 mg PO DAILY
furosemide [Lasix] 20 mg tablet
40 mg PO DAILYPRN PRN (Reason: 6 hours aftr monring dose.fluid)
melatonin 5 mg Tablet
5 mg PO HS Qty: 0 0RF
dextromethorphan-guaifenesin [Guaiasorb DM] 10-100 mg/5 mL Liquid
10 ml PO Q6HPRN PRN (Reason: cough)
magnesium hydroxide [Milk of Magnesia] 400 mg/5 mL Suspension
2,400 mg PO DAILYPRN PRN (Reason: constipation)
fluoxetine 20 mg Tablet
20 mg PO DAILY
amlodipine 10 mg Tablet
10 mg PO DAILY Qty: 30 0RF
insulin glargine [Lantus Solostar U-100 Insulin] 100 unit/mL (3 mL) insulin pen
21 unit SC DAILY
Referrals:
Shimon Cleary DO [Family Provider, Family Practice]
Interventions
Interventions:
*Risk Screen - Suicide Last Done: 12/25/24 00:06
*General Assessment Last Done: 12/25/24 00:06
*Neglect/Abuse Screening Last Done: 12/25/24 00:06
*ED- Fall Risk Assessment Last Done: 12/25/24 00:06
*ED COVID-19 Vaccine History Last Done: 12/25/24 00:06
*ED Influenza Vaccine History Last Done: 12/25/24 00:06
ED- Cardiac Assessment Last Done: 12/25/24 00:06
ED- Pulmonary Assessment Last Done: 12/25/24 00:06
Discharge Date and Time
Print Language: PERUVIAN
--- NOTE | 2024-12-25 02:48 | ED.GENMED ---
History of Present Illness
General
Chief Complaint: Breathing Problem
Source: patient
Time Seen by Provider: 12/25/24 00:03
Nursing documentation reviewed up to this point in time: agreed with
History of Present Illness
History of Present Illness:
Note:
CHIEF COMPLAINT(S)
Elevated temperature, dyspnea, history of recent admission
HISTORY OF PRESENT ILLNESS
The patient is a 64-year-old female with a history of pneumonia who presented with an elevated temperature. She was evaluated by her family doctor earlier today and was prescribed doxycycline, but the precise timing of administration is unclear.
Following the visit, she developed further symptoms, details of which were not explicitly documented. It was noted that she might have received acetaminophen (Tylenol) prior to arriving at the emergency department; however, the exact timing in
relation to her transportation by ambulance is not confirmed.
PHYSICAL EXAM
General: Alert, no acute distress.
Skin: Warm, dry.
Head: Normocephalic, atraumatic.
Neck: Supple, trachea midline.
Eye Ears, Nose, Mouth and Throat: Oral mucosa moist.
Cardiovascular: Normal peripheral perfusion, No edema.
Respiratory: Respirations are non-labored.
Gastrointestinal: Abdomen nondistended
Back: Normal range of motion, Normal alignment.
Musculoskeletal: Normal ROM, normal strength.
Neurological: Alert and oriented to person, place, time, and situation, No focal neurological deficit observed.
Psychiatric: Cooperative, appropriate mood & affect.
DIFFERENTIAL DIAGNOSIS
The Differential Diagnosis includes, in no particular order and is not limited to:
1. Viral infection
2. Bacterial pneumonia
3. Upper respiratory infection
4. Acute bronchitis
5. Asthma exacerbation
6. Urinary tract infection
7. Gastroenteritis
8. Dengue fever
9. Tuberculosis
10. Influenza
Disposition:
SUMMARY OF ENCOUNTER
The patient is a 64-year-old female who arrived from a longterm with altered mental status (AMS), presenting with dyspnea and hypoxia. A chest x-ray revealed subtle right-sided pneumonia. Despite normal white blood cell count, the patient has
been experiencing fevers. Considering these findings, the decision was made to admit the patient to the hospital for further management.
DISPOSITION
Admit to hospital service.
ASSESSMENT
The patient is likely suffering from bacterial pneumonia contributing to her respiratory distress and fever.
INDEPENDENT REVIEW OF LABS AND INTERPRETATION OF TESTS
My independent review of the chest x-ray interpretation is subtle right-sided pneumonia.
My independent review of the CBC indicates the white blood cell count is normal.
MEDICAL DECISION MAKING
1. Number and Complexity of Problems Addressed:
Chronic conditions affecting care: History of pneumonia.
2. Data:
Category 1
- Tests and documents reviewed: Chest x-ray, CBC.
3. Risk:
Consideration of Admission/Observation: Escalation of care including admission was considered given the complexity and risk of the patients presenting complaint and underlying comorbidities. Ultimately, the decision was made to admit the patient for
further evaluation and management of pneumonia.
DIAGNOSIS
Bacterial pneumonia - ICD-10 code J18.9
Past History
Past History
ED Past Medical History: Asthma, CHF, COPD, HTN, Hypercholesterolemia, IDDM, Hypothyroidism, Psychiatric (Schizoaffective disorder, borderline personality disorder, major depressive disorder, suicide attempt) and Other (SBO,)
ED Past Surgical History: Appendectomy and Cholecystectomy
Social History
Tobacco: Non-smoker
Alcohol: None
Drug: None
Personal: Single
Living: other (care home)
Employment: Not employed
Family History
Family History: Unable to obtain
Phy Exam
Physical Exam
Physical Exam:
.
Scores
Heart Failure Risk
Heart Failure Risk Score: Not Applicable
Sepsis
Sepsis Screening
Sepsis Assessment: Sepsis
Sepsis Screen
Sepsis Screen: Sepsis
Date: 12/26/24
Time: 22:02
Course
Orders/Labs/Results
Orders:
Orders
12/25/24 00:20
Electrocardiogram (*1) Urgent
Reason for Study: Other
Other Reason for Exam: Possible Sepsis
Cardiac Monitoring- Treatment ONCE
IV Insert/Care/Rem.- Treatment PRN
O2 Therapy [RESP] Urgent
Titrate/Wean O2 to maintain O2 sat greater than (%): 93
Special Instructions: TO MAINTAIN CONTINUOUS O2 SATS > OR = 93%
Pulse Ox/cont/shift [RESP] Urgent
Quantity: 1
Special Instructions: CONTINUOUS
12/25/24 00:21
EKG- Treatment ONCE
12/25/24 00:25
Complete Blood Count/With Diff Urgent
Comprehensive Metabolic Panel Urgent
Lactic Acid Q4H
Comment: ON ICE, CANCEL 2ND ORDER IF FIRST LACTIC ACID LEVEL <2
Blood Culture Q20M
[place] Source: Blood/Venous
Specimen Description:
Comment: Urgent from separate sites. If patient screens positive for possible sepsis
12/25/24 00:28
Blood Culture Q20M
[place] Source: Blood/Venous
Specimen Description:
Comment: Urgent from separate sites. If patient screens positive for possible sepsis
12/25/24 00:35
CefTRIAXone [Rocephin] 2,000 mg IV NOW STA
12/25/24 00:38
Sterile Water [Sterile Water For Injection] 20 ml .ROUTE .STK-MED
12/25/24 00:39
CR Chest - 2 Views Urgent
Comment:
Reason For Exam: dyspnea
12/25/24 00:45
0.9% Sodium Chloride 1000 ml [Nss] 1,000 ml IV 250 mls/hr
12/25/24 02:40
Azithromycin 500 mg/250 ml [Zithromax Infusion] 500 mg in 250 ml IV NOW
12/25/24 03:10
COVID-19 Antigen Urgent
Source: Nasal Swab
Influenza A+B Rapid Molecular Urgent
[place] Source: Nasal Swab
Specimen Description:
12/25/24 05:12
Lactic Acid Q4H
Comment: ON ICE, CANCEL 2ND ORDER IF FIRST LACTIC ACID LEVEL <2
12/25/24 Breakfast
2000 calorie (17 carb) Diabetic
At Your Request: Full Participation
Does patient need a safe tray?: No
12/25/24 06:05
Admit/Transfer Patient As Directed
Co-Sign Provider:
Level of Care: Inpatient admission
Assign to:: Medical/Surgical
Physician / Group: Moise
Diagnosis: Pneumonia / Sepsis
Reason for Hospitalization: Pneumonia / Sepsis
Expected length of stay greater than two midnights?: Yes
ELOS- Estimated Length of Stay in days: 3
I certify the patient meets the requirements for IP care: Yes
PRN Pain Medication Management As Directed
May give lesser potent ordered pain med per pt: Yes
preference::
Protocol:: Medication orders for pain may be administered in a
manner that supports deferring to patient preference
when the pt is:
- Requesting an ordered lesser potent pain medication.
Least to most potent pain medications are defined
as: acetaminophen < NSAID < tramadol < opioids
(morphine, oxycodone, hydromorphone).
- Requesting a lesser dose of the same medication IF
ORDERED.
- Requesting a less intrusive route of administration
if both routes are prescribed by the provider (PO <
IV).
12/25/24 06:08
Code Status As Directed
Resuscitation Status: Full Code
12/25/24 08:00
Fluoxetine HCl [Prozac] 20 mg PO DAILY
12/25/24 08:04
Acetaminophen [Tylenol] 650 mg PO Q4HPRN PRN
Albuterol Nebs [Ventolin Nebules] 2.5 mg INH R Q4HPRN PRN
Allopurinol [Zyloprim] 300 mg PO DAILY
Benzonatate [Tessalon Perles] 100 mg PO TIDPRN PRN COUGH
Dapagliflozin [Farxiga] 10 mg PO DAILY
Dextrose 50%-Water [Dextrose 50% Syringe] 12.5 grams IV [id number] PRN
Docusate Sodium [Colace] 100 mg PO BID
Doxycycline [Vibramycin] 100 mg PO Q12
Glucagon [GlucaGen] 1 mg IM PRN PRN
Guaifenesin [Mucinex] 600 mg PO BID
Insulin Aspart Corrective Mod [Novolog Flexpen-Moderate Resistance] See Protocol SC AC
Insulin Aspart Pen [Novolog Flexpen] 10 units SC AC
Ipratropium/Albuterol Sulfate [Duoneb] 3 ml INH R QID
Levothyroxine [Synthroid] 100 mcg PO DAILY@0600
Lorazepam [Ativan] 2 mg PO Q8HPRN PRN anxeity
Olanzapine [Zyprexa] 5 mg PO [id number] PRN Agitation
insulin glargine [Lantus Solostar U-100 Insulin] 20 unit SC DAILY
12/25/24 08:04
Activity As Directed
Activity Level: Ambulate
With Assistance
Bedside Glucose Monitoring As Directed
Frequency: AC&HS
Additional Instructions:: Change to q6h if pt on TPN, tube feeding or not eating
Bladder Scan As Directed
Follow Bladder Retention/Intermittent Cath Algorithm?: Yes
PRN if no void in __ hours: 6
Frequency: Per Retention Algorithm
If Bladder Scan Result >: 400
then:: Straight cath
I/O [Intake/ Output] As Directed
Frequency: Per unit guidelines
Straight Cath As Directed
Frequency: Per Retention Algorithm
Additional Instructions: straight cath as needed per acute urinary retention algorithm for 24 hrs
Additional Instructions: for bladder scan greater than 400 mL
Vital Signs As Directed
Frequency: Per unit guidelines
Weight As Directed
Frequency: Daily
Oxygen Therapy [O2 Therapy] [RESP] Routine
Titrate/Wean O2 to maintain O2 sat greater than (%): 94
Ot Eval And Treat Routine
PT Consult [Pt Eval And Treat] Routine
Activity Level: Ambulate
With Assistance
Speech Therapy Eval & Treat Routine
DX Deep Vein Thrombosis Video Routine
12/25/24 09:00
Pantoprazole [Protonix] 40 mg PO DAILY
Prednisone [Deltasone] 40 mg PO DAILY
Theophylline Extended Release [Zac-Dur (12 Hour Extended Release)] 150 mg PO Q12H
12/25/24 18:00
Enoxaparin Sodium [Lovenox] 40 mg SC QPM
12/25/24 22:00
Atorvastatin [Lipitor] 20 mg PO HS
Clonazepam [Klonopin] 1 mg PO HS
Divalproex Extended Rel. 24 Hr [Depakote ER (24 Hr Release)] 1,000 mg PO HS
Melatonin 5 mg PO HS
Olanzapine [Zyprexa] 15 mg PO HS
12/26/24 00:00
CefTRIAXone [Rocephin] 1,000 mg IV Q24H
12/26/24 03:19
Basic Metabolic Panel IN AM
Complete Blood Count/No Diff IN AM
Abnormal Lab Results
12/25/24
00:25
RBC 3.23 L 10^6/uL
(4.20-5.40)
Hct 35.3 L %
(37.0-47.0)
MCV 109.3 H fL
(81.0-99.0)
MCH 37.2 H pg
(27.0-31.0)
Abs Immat Gran (auto) 0.1 H 10^3/uL
(0-0.05)
Absolute Monos (auto) 1.0 H 10^3/uL
(0.1-0.6)
Immature Gran % 1.3 H %
(0-0.5)
Lymphocytes % 18.8 L %
(20.5-51.1)
Monocytes % 11.1 H %
(1.7-9.3)
Carbon Dioxide 33 H mmol/L
(22-30)
BUN 27 H mg/dl
(7-17)
Glucose 164 H mg/dl
(70-99)
Lactic Acid 2.7 H mmol/L
(0.7-2.0)
Total Protein 6.2 L g/dl
(6.3-8.2)
12/25/24 00:25
12/25/24 00:25
Vital Signs
Initial and Last Documented VS:
Initial Vital Signs
BP
127/59
12/24/24 23:54
Last Documented Vital Signs
Temp Pulse Resp BP Pulse Ox
98.5 F 85 18 142/82 95
12/26/24 19:38 12/26/24 20:35 12/26/24 20:35 12/26/24 17:00 12/26/24 20:35
*Pulse Oximetry
SaO2: 92
Nasal Cannula flow liters per minute: 4
Patient hypoxic: no
*Critical Care Note
Total Time (30-74mins, 75-104mins- exclusive of procedures): Not Applicable
ED Attending Note
-
Portions of this chart may have been created with voice recognition software.� Occasional wrong word or��sound alike� substitutions may have occurred due to the inherent limitations of voice recognition software.
Discharge Plan
Departure
Patient Disposition: Admit
Date of Disposition: 12/25/24
Time of Disposition: 02:47
Admit to: Telemetry
Presentation/result/management discussed w/ accepting MD/DO: Hospitalist
Discharge Problem:
Acute dyspnea, Pneumonia
Interventions
Interventions:
*Risk Screen - Suicide Last Done: 12/25/24 09:51
*General Assessment Last Done: 12/25/24 00:06
*Neglect/Abuse Screening Last Done: 12/25/24 00:06
*ED- Fall Risk Assessment Last Done: 12/25/24 00:06
*ED COVID-19 Vaccine History Last Done: 12/25/24 00:06
*ED Influenza Vaccine History Last Done: 12/25/24 00:06
*Nursing Disposition Last Done: 12/25/24 08:25
ED- Cardiac Assessment Last Done: 12/25/24 00:06
ED- Pulmonary Assessment Last Done: 12/25/24 00:06
Discharge Date and Time
Discharge Date/Time: 12/25/24 08:25
[2024-12-25] MEDS: ZITHROMAX INFUSION 250 IV (02:52)
[2024-12-25 03:45] LABS: COVID-19 Antigen Negative (Negative)
--- NOTE | 2024-12-25 04:50 | EDRN ---
Dr. Yusuf informed of pt decreasing pulse ox while sleeping on 5L [place] oxygen. No new orders at this time
--- NOTE | 2024-12-25 07:17 | HPS.HSE ---
Family Physician
-
Family Physician: Shimon Cleary
Chief Complaint
-
Cough / SOB
History of Present Illness
Patient is a 64y F with PMH significant for schizophrenia, DM-II and COPD who presents to ED from local [place] for evaluation of cough and SOB. Patient was admitted to 11/16 - 11/25 for similar presentation. She was discharged on her usual 2 lpm of
O2 as well as CPAP at - which patient states she has been using. Patient reports hacking cough that has really not changed overmuch. She complained of shortness of breath this evening and was sent to the ED for evaluation.
In the ED, patient is noted to have fever to 100.4 with tachycardia and tachypnea.
At the time of my examination, patient is sleeping comfortably. She wakes easily and answers questions / follows commands. She continues to complain of SOB - despite being asleep when I entered the room.
Medical History
Past Medical History
Past Medical History: Reports Other
Additional Past Medical History:
Bipolar Disorder / Schizophrenia
DM-II
Hypertension
Hypothyroidism
Obesity
COPD / Asthma
Anemia of Chronic Disease
GERD
Chronic HFpEF
Past Surgical History: Reports Other
Additional Past Surgical History:
Appendectomy
Cholecystectomy
Social History
Tobacco: Non-smoker
Alcohol: None
Drug: None
Living: Assisted
Family History
Family History: Not pertinent
Allergies / Home Medications
Allergies reflects when Allergies were last updated in [employer].
Home Medications with original date entered in [employer]
Allergy/Medication List:
Allergies
Allergy/AdvReac Type Severity Reaction Status Date / Time
bee venom protein (honey bee) Allergy Unknown Verified 11/16/24 20:28
benzonatate (From Tessalon Allergy Rash Verified 11/16/24 20:28
Perles)
codeine Allergy Unknown Verified 11/16/24 20:28
egg Allergy Unknown Verified 11/16/24 20:28
fluphenazine (From Prolixin) Allergy Unknown Verified 11/16/24 20:28
haloperidol (From Haldol) Allergy Unknown Verified 11/16/24 20:28
hydroxychloroquine (From Allergy Unknown Verified 11/16/24 20:28
Plaquenil)
Influenza Virus Vaccines Allergy flu vaccine Verified 11/16/24 20:28
iodine Allergy Unknown Verified 11/16/24 20:28
Penicillins Allergy unknown; Verified 11/16/24 20:28
tolerated
cephalexin
June 2020
shellfish derived Allergy Unknown Verified 11/16/24 20:28
Sulfa (Sulfonamide Allergy Unknown Verified 11/16/24 20:28
Antibiotics)
tomato Allergy Unknown Verified 11/16/24 20:28
Home Medications
allopurinol 300 mg tablet 300 mg PO DAILY Gout 06/08/20
cholecalciferol (vitamin D3) 25 mcg (1,000 unit) tablet 1,000 units PO DAILY Supplement 06/08/20
metformin 1,000 mg tablet 1,000 mg PO BID Diabetes 06/08/20
acetaminophen 325 mg tablet 650 mg PO Q6HPRN PRN back pain 05/28/21
insulin glulisine U-100 100 unit/mL subcutaneous pen (Apidra SoloStar U-100 Insulin) 8 unit SC DAILY Diabetes 09/13/21
olanzapine 10 mg tablet (Zyprexa) 15 mg PO mental health 09/13/21
furosemide 40 mg tablet 40 mg PO DAILY Fluid retention/Swelling 02/08/22
benzonatate 100 mg capsule 100 mg PO TIDPRN PRN COUGH 04/12/23
ezetimibe 10 mg tablet (Zetia) 10 mg PO DAILY High Cholesterol 04/12/23
glucagon 3 mg/actuation nasal spray (Baqsimi) 3 mg intranasal DAILYPRN PRN severe hypoglycemia 04/12/23
docusate sodium 100 mg capsule 100 mg PO BID Constipation 07/26/23
guaifenesin 600 mg tablet, extended release 12 hr (Mucinex) 600 mg PO BID Congestion 07/26/23
albuterol sulfate 2.5 mg/3 mL (0.083 %) solution for nebulization 2.5 mg inhalation R Q6HPRN PRN sob 10/31/23
benzoyl peroxide 5 % topical cleanser 1 applic topical DAILY boil-prone areas 10/31/23
clonazepam 1 mg tablet 1.5 mg PO HS Mental Health/Anxiety 10/31/23
lorazepam 2 mg tablet 2 mg PO Q8HPRN PRN anxeity 10/31/23
ibuprofen 200 mg tablet (Advil) 600 mg PO Q8HPRN PRN severe pain 01/24/24
olanzapine 5 mg tablet 5 mg PO D15OMAT PRN Agitation 01/24/24
pantoprazole 40 mg tablet,delayed release 40 mg PO DAILY Gastrointestinal Issue 01/24/24
theophylline 300 mg capsule,extended release 24 hr 300 mg PO DAILY Lung/Breathing Issues 01/24/24
atorvastatin 20 mg tablet (Lipitor) 20 mg PO HS High Cholesterol 09/25/24
dapagliflozin propanediol 10 mg tablet (Farxiga) 10 mg PO DAILY Heart Disease/Condition 09/25/24
divalproex 500 mg tablet,extended release 24 hr 1,000 mg PO HS Mental Health/Anxiety 09/25/24
furosemide 20 mg tablet (Lasix) 40 mg PO DAILYPRN PRN 6 hours aftr monring dose.fluid 09/25/24
gabapentin 100 mg capsule 100 mg PO TIDPRN PRN mild pain 09/25/24
insulin glulisine U-100 100 unit/mL subcutaneous pen (Apidra SoloStar U-100 Insulin) 9 sliding scale dose SC BID@1200,1600 Diabetes 09/25/24
levothyroxine 100 mcg tablet (Synthroid) 100 mcg PO DAILY Thyroid 09/25/24
therapeutic multivitamin 1 tab PO DAILY Supplement 09/25/24
melatonin 5 mg tablet 5 mg PO HS Sleep #0 tabs 10/01/24
dextromethorphan-guaifenesin 10 mg-100 mg/5 mL oral liquid (Guaiasorb DM) 10 ml PO Q6HPRN PRN cough 11/16/24
fluoxetine 20 mg tablet 20 mg PO DAILY Mental Health/Anxiety 11/16/24
magnesium hydroxide 400 mg/5 mL oral suspension (Milk of Magnesia) 2,400 mg PO DAILYPRN PRN constipation 11/16/24
amlodipine 10 mg tablet 10 mg PO DAILY #30 tabs 11/25/24
insulin glargine 100 unit/mL (3 mL) subcutaneous pen (Lantus Solostar U-100 Insulin) 21 unit SC DAILY Diabetes 12/25/24
Review of Systems
-
History Source: Patient
A 12 point ROS was completed and negative except as noted: Yes
Constitutional: Reports Fatigue; Denies Fever or Chills
EENT: Denies Sore Throat
Respiratory: Reports Cough and Trouble Breathing
Cardiac: Denies Chest Pain or Palpitations
Abdomen/GI: Denies Abdominal Pain, Nausea, Vomiting or Diarrhea
: Denies Dysuria or Flank Pain
Neurological: Reports Headache; Denies Dizzy or Weakness
Psych: Denies Depression or Anxiety
Physical Exam
Vital Signs
Vital Signs
Temp Pulse Resp BP Pulse Ox
100.4 F H 96 28 144/80 90
12/25/24 00:01 12/25/24 07:00 12/25/24 07:00 12/25/24 07:00 12/25/24 07:00
Physical Exam
General: Other (64y F in no distress. )
HEENT: Other (Thick neck, crowded oropharynx.)
Respiratory: Other (Diffuse expiratory wheezes. Decreased BS at bases.)
Cardiac: S1/S2 and Regular Rhythm; No Murmur
GI: Soft, Non Tender, Non Distended and Normal Bowel Sounds
Musculoskeletal: No Clubbing, No Cyanosis and No Edema
Neuro: Awake, Alert and Oriented
Laboratory Results
-
12/25/24 00:25
12/25/24 00:25
Laboratory Results
Lactic Acid 1.7 mmol/L (0.7-2.0) 12/25/24 05:12
Total Bilirubin 0.3 mg/dl (0.2-1.3) 12/25/24 00:25
AST 28 U/L (14-36) 12/25/24 00:25
ALT 23 U/L (0-35) 12/25/24 00:25
Alkaline Phosphatase 89 U/L (38-126) 12/25/24 00:25
Impression/Plan
-
A/P: Patient is a 64y F with PMH significant for bipolar / schizophrenia, DM-II and COPD who presents to ED complaining of cough and SOB.
Bibasilar Pneumonia
Sepsis secondary to the above
- Admit for further evaluation and treatment.
- Patient presents with fever, tachycardia, tachypnea and CXR findings consistent with pneumonia.
- COVID / Flu negative in the ED.
- Abx for pneumonia.
- Supportive care including mucolytics, nebs, etc.
- Given recurrent episodes and underlying risk factors - will ask Speech to evaluate for aspiration risk.
- Follow for clinical improvement.
COPD with Acute Exacerbation secondary to the above
Chronic Hypoxemic Respiratory Failure
- Stable on usual 2 lpm of oxygen thus far.
- Diffuse wheezing appreciated on exam.
- PO prednisone daily for now and taper quickly as able.
- Nebs ATC and PRN.
- Follow for clinical improvement.
Chronic HFpEF
- Stable. Does not appear grossly volume overloaded at present.
- Hold Lasix acutely given borderline hypotension.
- Follow I/Os, daily weights, etc.
Benign Hypertension
- Currently with low normal BP.
- Hold usual antihypertensive medications acutely.
DM-II
- Stable. Continue basal : bolus insulin regimen.
- Follow glucose and cover with SSI as needed.
- A1C was 7.5 % last month.
Bipolar / Schizophrenia
- Stable. Continue usual psychotropic med regimen.
Hypothyroidism
- Continue usual T4 supplementation.
Obesity due to excess calories
CIELO on CPAP
- Affects all aspects of care.
- Encourage healthy diet and increased activity with goal of weight loss.
- Continue nightly PAP therapy.
DVT Prophylaxis: Lovenox
Code Status: Full
[2024-12-25] MEDS: DUONEB 3 ML INH ×4 (08:31→19:36)
--- NOTE | 2024-12-25 08:40 | RR ---
Patient arriving to unit from ED. Pox in low 80s on 6L NC. Respiratory at bedside, neb tx preformed. Patient placed on non-rebreather mask. Pox remains in 80s. HR tachy 120s. EKG preformed. Dr. Chavez notified and on unit to assess pt. A Rapid
Response was called on this patient, please see Rapid Response form.
[2024-12-25 08:43] LABS: Glucose - Point of Care 159 mg/dl (70-99)
[2024-12-25] MEDS: TYLENOL PO (08:53)
[2024-12-25] MEDS: LASIX 40 MG IV ×2 (09:11→16:02)
--- NOTE | 2024-12-25 09:26 | CON.PUL ---
Consultation
Consultation Request
Date/Time Consultation Requested: 12/25/2024-9:30 AM
Date/Time Consultation Performed: 12/25/2024-9:30 AM
Requesting Provider: Dr. Chavez
Performing Provider: Dr. Davis
Reason for Consultation: Shortness of breath
Medical History
-
Chief Complaint: Shortness of breath
History of Present Illness:
64-year-old non-smoking female with a history of schizophrenia, diabetes, asthma recently discharged from the hospital for respiratory issues discharged on 2 L of oxygen and CPAP at night presented with hacking cough with progressive hypoxemia and
pulmonary consulted for hypoxemia 12/25/2024. Patient was seen during a rapid response. She complains of significant shortness of breath, nonproductive cough, but no chest pain, pleurisy, mopped assist, abdominal pain or increased leg swelling.
Past Medical History
Past Medical History: None (Schizophrenia. Bipolar. Diabetes. Hypertension. Hypothyroid. Morbid obesity. COPD/[id number]. Anemia. GERD. Chronic heart failure preserved EF. Appendectomy. Cholecystectomy.)
Social History
Tobacco: Non-smoker
Alcohol: None
Drug: None
Personal: Single
Living: Shelter
Occupational Exposures: No known asbestos exposure
Environmental Exposures: No known tuberculosis exposure
Family History
Family History: Reviewed & Not Pertinent (Father-CIELO)
Allergies / Home Medications
Allergies
Allergy/AdvReac Type Severity Reaction Status Date / Time
bee venom protein (honey bee) Allergy Unknown Verified 11/16/24 20:28
benzonatate (From Tessalon Allergy Rash Verified 11/16/24 20:28
Perles)
codeine Allergy Unknown Verified 11/16/24 20:28
egg Allergy Unknown Verified 11/16/24 20:28
fluphenazine (From Prolixin) Allergy Unknown Verified 11/16/24 20:28
haloperidol (From Haldol) Allergy Unknown Verified 11/16/24 20:28
hydroxychloroquine (From Allergy Unknown Verified 11/16/24 20:28
Plaquenil)
Influenza Virus Vaccines Allergy flu vaccine Verified 11/16/24 20:28
iodine Allergy Unknown Verified 11/16/24 20:28
Penicillins Allergy unknown; Verified 11/16/24 20:28
tolerated
cephalexin
June 2020
shellfish derived Allergy Unknown Verified 11/16/24 20:28
Sulfa (Sulfonamide Allergy Unknown Verified 11/16/24 20:28
Antibiotics)
tomato Allergy Unknown Verified 11/16/24 20:28
Home Medications
�Medication �Instructions �Recorded �Confirmed �Last Taken �Type
allopurinol 300 mg tablet 300 mg PO DAILY Gout 06/08/20 12/25/24 11/16/24 History
cholecalciferol (vitamin D3) 25 1,000 units PO DAILY Supplement 06/08/20 12/25/24 11/16/24 History
mcg (1,000 unit) tablet
metformin 1,000 mg tablet 1,000 mg PO BID Diabetes 06/08/20 12/25/24 11/16/24 History
acetaminophen 325 mg tablet 650 mg PO Q6HPRN PRN back pain 05/28/21 12/25/24 11/16/24 History
insulin glulisine U-100 100 8 unit SC DAILY Diabetes 09/13/21 12/25/24 11/16/24 History
unit/mL subcutaneous pen (Apidra
SoloStar U-100 Insulin)
olanzapine 10 mg tablet (Zyprexa) 15 mg PO mental health 09/13/21 12/25/24 11/16/24 History
furosemide 40 mg tablet 40 mg PO DAILY Fluid 02/08/22 12/25/24 11/16/24 History
retention/Swelling
benzonatate 100 mg capsule 100 mg PO TIDPRN PRN COUGH 04/12/23 12/25/24 01/23/24 History
ezetimibe 10 mg tablet (Zetia) 10 mg PO DAILY High Cholesterol 04/12/23 12/25/24 11/16/24 History
glucagon 3 mg/actuation nasal 3 mg intranasal DAILYPRN PRN 04/12/23 12/25/24 Unknown History
spray (Baqsimi) severe hypoglycemia
docusate sodium 100 mg capsule 100 mg PO BID Constipation 07/26/23 12/25/24 11/16/24 History
guaifenesin 600 mg tablet, 600 mg PO BID Congestion 07/26/23 12/25/24 11/16/24 History
extended release 12 hr (Mucinex)
albuterol sulfate 2.5 mg/3 mL 2.5 mg inhalation R Q6HPRN PRN sob 10/31/23 12/25/24 11/16/24 History
(0.083 %) solution for nebulization
benzoyl peroxide 5 % topical 1 applic topical DAILY boil-prone 10/31/23 12/25/24 11/16/24 History
cleanser areas
clonazepam 1 mg tablet 1.5 mg PO HS Mental Health/Anxiety 10/31/23 12/25/24 11/16/24 History
lorazepam 2 mg tablet 2 mg PO Q8HPRN PRN anxeity 10/31/23 12/25/24 11/16/24 History
ibuprofen 200 mg tablet (Advil) 600 mg PO Q8HPRN PRN severe pain 01/24/24 12/25/24 11/14/24 History
olanzapine 5 mg tablet 5 mg PO [id number] PRN Agitation 01/24/24 12/25/24 11/12/24 History
pantoprazole 40 mg tablet,delayed 40 mg PO DAILY Gastrointestinal 01/24/24 12/25/24 11/16/24 History
release Issue
theophylline 300 mg 300 mg PO DAILY Lung/Breathing 01/24/24 12/25/24 11/16/24 History
capsule,extended release 24 hr Issues
atorvastatin 20 mg tablet (Lipitor) 20 mg PO HS High Cholesterol 09/25/24 12/25/24 11/16/24 History
dapagliflozin propanediol 10 mg 10 mg PO DAILY Heart 09/25/24 12/25/24 11/16/24 History
tablet (Farxiga) Disease/Condition
divalproex 500 mg tablet,extended 1,000 mg PO HS Mental 09/25/24 12/25/24 11/16/24 History
release 24 hr Health/Anxiety
furosemide 20 mg tablet (Lasix) 40 mg PO DAILYPRN PRN 6 hours aftr 09/25/24 12/25/24 Unknown History
monring dose.fluid
gabapentin 100 mg capsule 100 mg PO TIDPRN PRN mild pain 09/25/24 12/25/24 09/21/24 History
insulin glulisine U-100 100 9 sliding scale dose SC 09/25/24 12/25/24 11/16/24 History
unit/mL subcutaneous pen (Apidra BID@1200,1600 Diabetes
SoloStar U-100 Insulin)
levothyroxine 100 mcg tablet 100 mcg PO DAILY Thyroid 09/25/24 12/25/24 11/16/24 History
(Synthroid)
therapeutic multivitamin 1 tab PO DAILY Supplement 09/25/24 12/25/24 11/16/24 History
melatonin 5 mg tablet 5 mg PO HS Sleep #0 tabs 10/01/24 12/25/24 11/16/24 Rx
dextromethorphan-guaifenesin 10 10 ml PO Q6HPRN PRN cough 11/16/24 12/25/24 11/16/24 History
mg-100 mg/5 mL oral liquid
(Guaiasorb DM)
fluoxetine 20 mg tablet 20 mg PO DAILY Mental 11/16/24 12/25/24 11/16/24 History
Health/Anxiety
magnesium hydroxide 400 mg/5 mL 2,400 mg PO DAILYPRN PRN 11/16/24 12/25/24 Unknown History
oral suspension (Milk of Magnesia) constipation
amlodipine 10 mg tablet 10 mg PO DAILY #30 tabs 11/25/24 12/25/24 Unknown Rx
insulin glargine 100 unit/mL (3 21 unit SC DAILY Diabetes 12/25/24 12/25/24 Unknown History
mL) subcutaneous pen (Lantus
Solostar U-100 Insulin)
Review of Systems
-
Unable to Obtain full review of systems at this time due to: Other (Per HPI)
Vitals / Labs / Diagnostic Testing
Vital Signs
Temp Pulse Resp BP Pulse Ox
100.4 F H 102 24 167/115 90
12/25/24 00:01 12/25/24 09:14 12/25/24 09:14 12/25/24 09:02 12/25/24 09:14
Lab Data
12/25/24 00:25
12/25/24 00:25
Microbiology
12/25/24 03:10 Nasal Swab Influenza Types A & B (SUSHANT) - Final
Negative for Influenza A & B, NAAT
Negative results must be combined with clinical observations
and patient history.
Nucleic Acid Amplification test (NAAT)performed on the
[employer] platform.
Diagnostic Testing:
Physical Exam
-
Exam:
Well-nourished and well-developed in no apparent distress
HEENT-atraumatic, normocephalic
Neck-supple, no JVD, no bruit
Heart-regular rate and rhythm-no murmurs, rubs or gallops
Chest with diminished breath sounds, prolonged expiratory time, expiratory rhonchi and crackles at the bases
No stridor
Back without tenderness
Abdomen-soft, nontender, nondistended, no hepatosplenomegaly
Extremities-no cyanosis, clubbing, trace lower extremity edema
Integument-intact, no rashes, lesions or ecchymosis
Neurology-alert and oriented, nonfocal motor and sensory exam
Assessment
-
64-year-old non-smoking female with a history of schizophrenia, diabetes, asthma recently discharged from the hospital for respiratory issues discharged on 2 L of oxygen and CPAP at night presented with hacking cough with progressive hypoxemia and
pulmonary consulted for hypoxemia 12/25/2024
Acute hypoxemic respiratory failure due to bilateral pneumonia
Bibasilar pneumonia-aspiration risk
COPD/asthma with acute [id number]
Heart failure preserved EF
Hyperglycemia
Lactic acidosis
Conditions present prior to admission:
Schizophrenia.
Bipolar.
Borderline personality disorder
Diabetes.
Hypertension.
Hypothyroid.
Morbid obesity.
CIELO/obesity hypoventilation suspected
Chronic hypercapnia-pCO2 45-55
History of mild restrictive lung disease (post�bronchodilator FVC: 69% / 2.04 L via spirometry on 12/12/[id number]
Mild aortic stenosis
Anemia.
GERD.
Chronic heart failure preserved EF.
Appendectomy. Cholecystectomy. Rectal prolapse. Right arm surgery self lacerations.
Plan
Respiratory decompensation the patient with chronic hypoxemia and mild chronic hypercapnia due to pneumonia and asthma exacerbation
Supplemental oxygen as needed-currently on high flow
Tried BiPAP or noninvasive ventilation/[id number] with SECOND WORKER
Patient is a full code and has been intubated in the past-intubated mechanically ventilated if necessary
Intravenous steroids-eventually convert to prednisone
Mucolytic's-add Mucinex
DuoNebs
Theophylline-chronic medication
Aspiration precautions
Follow radiographically
Check cultures
Sputum culture pending
Blood cultures pending
Influenza negative
Ceftriaxone and doxycycline empirically
Diuresis if needed
Monitor renal function, electrolytes, intake/output, lower extremity edema and weight
Replace electrolytes as needed
DVT prophylaxis-on Lovenox
GI prophylaxis-pantoprazole
Nutrition with aspiration precaution
Early mobilization
Reviewed with Dr. Chavez as well as SECOND WORKER
The patient was last seen by Dr. Davis in the office 12/12/20-subsequently she followed up with [facility] as our office did not except [facility]
Diagnostic data:
CXR 11/22/24-Similar appearance of the basilar patchy airspace opacities, more pronounced on the right, which may represent pneumonia or pneumonitis.
Chest x-ray 12/25/2024-right basilar pneumonia
CT chest 01/21/24-multiple pulmonary nodules stable dating back to 02/06/23-over 10 nodules, less than [address] chest 01/28/2024-no central pulmonary emboli, bilateral lower lobe consolidations left greater than right likely representing atelectasis and pneumonia
Echocardiogram 11/23/2024-EF 58%, normal diastolic function, mild mitral regurgitation
Post�bronchodilator FVC: 69% / 2.04 L via spirometry on 12/12/2020; postbronchodilator FVC: 42% predicted (1.18 L) with TLC 124% and VC 40% predicted via PFTs from 03/07/2022 (through [facility]). She did have difficulty following instructions per
glass technician/installer during this test.
ABG 01/30/24-30 3/84/7.52-decrease minute ventilation-rate decreased to 12
VBG 01/31/24-40 6/124/7.4
VBG 02/01/24-38/180/7.48-pulse oximetry does not correlate and routinely underestimates PaO2
ABG 01/29/24-40 8/183/7 0.4-100% saturation on ABG and only 93% saturation on peripheral monitor
ABG 12/25/2024--55/88/7.39
Data Reviewed
-
PFT: Report reviewed by me
EKG: Report reviewed by me
Radiology: Image personally visualized and interpreted and Report reviewed by me
CT Scan: Report reviewed by me
Medical Tests (Nuc Med, Echo etc): Report reviewed by me
Labs: Labs reviewed by me
Old Records: Reviewed
Total Time Spent with Patient (in minutes): 65
[2024-12-25] MEDS: NSS IV (09:40)
--- NOTE | 2024-12-25 09:54 | PTOTSP ---
RELIEF MAN Note
Patient transferred to ICU level of care s/p CHIEF LOAD DISPATCHER. New orders required to complete RELIEF MAN evaluation if/when medically appropriate.
[2024-12-25 09:56] LABS: B.E. 6.6 mmol/L; HCO3 33.3 mmol/L (21-28); O2 Saturation % 98.0 % (94-98); PCO2 55 mmHg (32-35); PO2 88 mmHg (83-108)
[2024-12-25] MEDS: MUCINEX PO (10:31)
[2024-12-25] MEDS: FARXIGA PO (10:31)
[2024-12-25] MEDS: COLACE PO (10:31)
[2024-12-25] MEDS: PROZAC PO (10:31)
[2024-12-25] MEDS: NOVOLOG FLEXPEN-MODERATE RESISTANCE SC (10:32)
[2024-12-25] MEDS: NOVOLOG FLEXPEN SC ×3 (10:32→17:44)
[2024-12-25] MEDS: SYNTHROID PO (10:32)
[2024-12-25] MEDS: VIBRAMYCIN PO (10:32)
[2024-12-25] MEDS: ZYLOPRIM PO (10:32)
[2024-12-25] MEDS: SOLU-MEDROL PF 60 MG IV ×2 (10:33→19:41)
[2024-12-25] MEDS: LANTUS 0.2 UNITS SC (10:33)
[2024-12-25] MEDS: PROTONIX PO (10:33)
[2024-12-25 10:34] LABS: Glucose - Point of Care 174 mg/dl (70-99)
--- NOTE | 2024-12-25 11:32 | W.PN.UPDATE ---
Update Note
Progress Note Update
Rapid response note
Rapid response called around 8 in the morning today
Patient respiratory distress with SpO2 in 70s
Lung exam showing increased rhonchi, no wheezing
Patient anxious/agitated
Minimal to no leg edema appreciated on exam
Acute hypoxic respiratory failure
- Have history of chronic hypoxia on oxygen through nasal cannula 2 L at long term
- Patient required to be placed on mid flow/nonrebreather with SpO2 coming slowly to 80s
- Patient was on normal saline at rate of 250 mL/h, discontinued
- Empiric dose of IV Lasix 40 mg provided
- Already getting antibiotic for possible pneumonia
- Transferred to IMU and then later to ICU level for need of NIV
- Pulmonology has been consulted
Total critical care time 35 mins . Total critical care time documented does not include time spent on separately billed procedures or the services of residents, students, nurses or physician assistants. I personally saw and examined the patient. I
have reviewed all diagnostic interpretations and treatment plans as written. I was present for the jimenez portions of any procedures performed and the inclusive time noted in any critical care statement. Critical care time includes patient management
by me, time spent at the patients bedside, time to review lab and imaging results, discussing patient care, documentation in the medical record, and time spent with the family or caregiver.
[2024-12-25 11:33] LABS: INR 0.97; PT 13.2 Sec (11.4-14.6)
[2024-12-25 11:34] LABS: APTT 26.7 Sec (23.4-35.0)
--- NOTE | 2024-12-25 12:19 | PTCARENOTE ---
Patient received from 4th floor as rapid response. Patient's POX in 80s on 15L NRB. Patient placed on high flow 50L 100% and 15L NRB and POX remained 88-91%. Patient quickly placed on NIV - 14/6 100% and POX 92-94%. Patient tachypneic w/ occasional
harsh dry cough. Purewick in place due to IV Lasix given during rapid response. Patient ST on the monitor and hypertensive with +2 generalized anasarca.
--- NOTE | 2024-12-25 13:00 | CM ---
Addendum entered by Jamia Villeda 12/25/24 13:04:
will need clarify if patient still using bipap vs O2 from [employer].
Report: [phone] option 1

Original Note:
Patient seen at bedside on ICU, following rapid on . Patient is a [facility] patient at [facility]. Patient is normally independent of IADL's and self care at baseline, Patient has a wheelchair and
per prior chart review has had home O2 in the past. Patient has not needed SNF or VN in the past.
Pt does have prescription coverage and rx's are filled through [facility] [phone]. Oxygen at home through [employer] per prior chart review.
Mirian Tavarez Covered Button Maker [phone]. CM spoke with Mirian and she confirmed plan to discharge back to [facility] next week.Patient would benefit from PT/OT assessment to confirm patient ability to return to [facility]. CM will continue to
follow for discharge planning needs.
Plan; return to [facility]; pending physician assessment and confirmation with [facility]
[2024-12-25 13:33] LABS: Glucose - Point of Care 168 mg/dl (70-99)
[2024-12-25] MEDS: NOVOLOG FLEXPEN-MODERATE RESISTANCE 1 UNITS SC (13:48)
[2024-12-25] MEDS: OFIRMEV 100 IV (14:13)
[2024-12-25] MEDS: NOVOLOG FLEXPEN-MODERATE RESISTANCE 3 UNITS SC (17:45)
[2024-12-25] MEDS: LOVENOX 40 MG SC (17:52)
[2024-12-25 17:54] LABS: Glucose - Point of Care 212 mg/dl (70-99)
--- NOTE | 2024-12-25 18:01 | PTCARENOTE ---
Patient taken off NIV at 1600 and transitioned to HFNC 55L 60%. Patient tolerating well w/ POX 89-94%. Patient to go back on NIV at HS per Dr. Castaneda.
[2024-12-25 19:39] LABS: Glucose - Point of Care 350 mg/dl (70-99)
[2024-12-25] MEDS: MUCINEX 600 MG PO (19:40)
[2024-12-25] MEDS: TYLENOL 650 MG PO (19:40)
[2024-12-25] MEDS: NOVOLOG FLEXPEN 9 UNITS SC (19:40)
[2024-12-25] MEDS: COLACE 100 MG PO (19:40)
[2024-12-25] MEDS: VIBRAMYCIN 100 MG PO (19:40)
--- NOTE | 2024-12-25 20:00 | PTCARENOTE ---
Assumed care, pt Ox3, ALERGIA and follows commands, KIANA, slow garbled speech, NSR c PVCs, +pulses, +2 GA, Lungs coarse, crackles @ bases c exp. wheeze, SpO2 93% on HF 15L 60%, BSx4 ate a 1/3 of her dinner, BG 350 before dinner [employer] notified and 9 units
given per MAR, PW c clear yellow output, Afebrile, 20G RAC, 22G YARY, call azevedo within reach and bed alarm applied, otherwise refer to documentation.
[2024-12-25] MEDS: LIPITOR 20 MG PO (21:06)
[2024-12-25] MEDS: DEPAKOTE ER (24 HR RELEASE) 1000 MG PO (21:06)
[2024-12-25] MEDS: ZYPREXA 10 MG PO (21:07)
[2024-12-25] MEDS: MELATONIN 5 MG PO (21:07)
[2024-12-25] MEDS: KLONOPIN 1 MG PO (21:07)
[2024-12-25] MEDS: KLONOPIN 0.5 MG PO (21:07)
[2024-12-25] MEDS: ZYPREXA 5 MG PO (21:07)
[2024-12-25] MEDS: STERILE WATER FOR INJECTION 10 ML IV (23:32)
[2024-12-25] MEDS: ROCEPHIN 1000 MG IV (23:32)
[2024-12-26] VITALS (27 sets, daily range): BP systolic 101–146; BP diastolic 60–93; PULSE 92; O2SAT 95; BMI 37.1
[2024-12-26 00:33] LABS: Glucose - Point of Care 226 mg/dl (70-99)
[2024-12-26] MEDS: NOVOLOG FLEXPEN 3 UNITS SC ×2 (00:35→04:27)
--- NOTE | 2024-12-26 00:45 | PTCARENOTE ---
systems reviewed, BG 226 NET TECHNICAL ARCHITECT notified 3 units given per MAR, Sats 95% on NIV 22/08, no changes from previous assessment otherwise refer to documentation.
[2024-12-26 03:29] LABS: Hematocrit 37.1 % (37.0-47.0); Hemoglobin 12.3 g/dL (12.0-16.0); Mean Corp Hgb Conc. 33.2 g/dL (33.0-37.0); Mean Corpuscular Volume 107.8 fL (81.0-99.0); Platelet Count 244 10^3/uL (130-400); Red Cell Dist. Width 14.2 % (11.5-14.5)
[2024-12-26 03:53] LABS: Blood Urea Nitrogen 35 mg/dl (7-17); Calcium 9.5 mg/dl (8.4-10.2); Carbon Dioxide 35 mmol/L (22-30); Chloride 104 mmol/L (98-107); Estimated Creatinine Clearance 73 ml/min; Glucose 230 mg/dl (70-99); Magnesium 2.2 mg/dl (1.6-2.3); Potassium 4.4 mmol/L (3.5-5.1); Sodium 142 mmol/L (135-145); eGFR > 60.00
--- NOTE | 2024-12-26 04:38 | PTCARENOTE ---
systems reviewed, labs sent, CHG bath, weight obtained, BG 230 911 EMERGENCY DISPATCHER notified 3 units given per order, otherwise refer to documentation.
[2024-12-26] MEDS: SYNTHROID 100 MCG PO (06:00)
--- NOTE | 2024-12-26 07:05 | W.PN.INTV ---
Today's Communication / Plan
Recommendations
- Lasix 40 mg IV daily
- Switch to high flow during daytime and continue BiPAP nightly, 22/08
- Continue to wean FiO2 as tolerated
- Lowered steroids to 40 mg methylprednisolone daily
Assessment
-
64-year-old non-smoking female with a history of schizophrenia, diabetes, asthma recently discharged from the hospital for respiratory issues discharged on 2 L of oxygen and CPAP at night presented with hacking cough with progressive hypoxemia and
pulmonary consulted for hypoxemia 12/25/2024
Acute hypoxemic respiratory failure due to bilateral pneumonia
Bibasilar pneumonia-aspiration risk
COPD/asthma with acute [id number]
Acute on chronic Heart failure preserved EF
Hyperglycemia
Lactic acidosis
Overview 12/26. Work of breathing much improved, appears comfortable on BiPAP. Currently 22/08, FiO2 60%. MAP of 91, saturating 92%.
Conditions present prior to admission:
Schizophrenia.
Bipolar.
Borderline personality disorder
Diabetes.
Hypertension.
Hypothyroid.
Morbid obesity.
CIELO/obesity hypoventilation suspected
Chronic hypercapnia-pCO2 45-55
History of mild restrictive lung disease (post�bronchodilator FVC: 69% / 2.04 L via spirometry on 12/12/[id number]
Mild aortic stenosis
Anemia.
GERD.
Chronic heart failure preserved EF.
Appendectomy. Cholecystectomy. Rectal prolapse. Right arm surgery self lacerations.
Plan
Respiratory decompensation the patient with chronic hypoxemia and mild chronic hypercapnia due to pneumonia and asthma exacerbation along with volume overload
Supplemental oxygen as needed-continue high flow during daytime and V60 nightly, wean FiO2 as tolerated, down to 60% FiO2 now
Patient is a full code and has been intubated in the past-intubated mechanically ventilated if necessary
Intravenous steroids-lower dose to 40 mg IV daily
Responded well to Lasix 40 mg IV x 2 on 12/25. Pedal edema essentially resolved, continue 40 mg IV daily, BNP noted to be elevated.
Mucolytic's-add Mucinex
DuoNebs
Theophylline-chronic medication
Aspiration precautions
Follow radiographically
Check cultures
Sputum culture pending
Blood cultures pending
Influenza negative
Ceftriaxone and doxycycline empirically
Diuresis if needed
Monitor renal function, electrolytes, intake/output, lower extremity edema and weight
Replace electrolytes as needed
DVT prophylaxis-on Lovenox
GI prophylaxis-pantoprazole
Nutrition with aspiration precaution
Early mobilization
The patient was last seen by Dr. Davis in the office 12/12/20-subsequently she followed up with [facility] as our office did not except [facility]
Diagnostic data:
CXR 11/22/24-Similar appearance of the basilar patchy airspace opacities, more pronounced on the right, which may represent pneumonia or pneumonitis.
Chest x-ray 12/25/2024-right basilar pneumonia
CT chest 01/21/24-multiple pulmonary nodules stable dating back to 02/06/23-over 10 nodules, less than [address] chest 01/28/2024-no central pulmonary emboli, bilateral lower lobe consolidations left greater than right likely representing atelectasis and pneumonia
Echocardiogram 11/23/2024-EF 58%, normal diastolic function, mild mitral regurgitation
Post�bronchodilator FVC: 69% / 2.04 L via spirometry on 12/12/2020; postbronchodilator FVC: 42% predicted (1.18 L) with TLC 124% and VC 40% predicted via PFTs from 03/07/2022 (through [facility]). She did have difficulty following instructions per
support technician during this test.
ABG 01/30/24-30 3/84/7.52-decrease minute ventilation-rate decreased to 12
VBG 01/31/24-40 6/124/7.4
VBG 02/01/24-38/180/7.48-pulse oximetry does not correlate and routinely underestimates PaO2
ABG 01/29/24-40 8/183/7 0.4-100% saturation on ABG and only 93% saturation on peripheral monitor
ABG 12/25/2024--55/88/7.39
Subjective Dataa
Subjective Data
Date of Service:
Date of Service: December 26, 2024
Subjective:
Patient comfortably lying in bed in no acute distress, appears much improved over last 24 hours
Review of Systems
Genitourinary: Other (No new symptoms reported)
Objective Data
Data Reviewed
Vital Signs / I&O / Oxygen:
Vital Signs
Temp Pulse Resp BP Pulse Ox
97.8 F 92 22 124/70 91
12/26/24 04:35 12/26/24 06:00 12/26/24 06:00 12/26/24 06:00 12/26/24 06:00
Intake and Output
12/25/24 12/26/24 12/27/24
06:59 06:59 06:59
Intake Total 400 / 400
Output Total 2500 / 2500
Balance -2099 / -2100
SaO2 [NIV (Non Invasive 94
Ventilation)]
SaO2 91
Nasal Cannula flow liters per 55
minute
Physical Exam
General: Comfortable
HEENT: Normocephalic
Cardiovascular: S1-S2
Respiratory: Clear and Non-Labored Respirations
GI: Soft
Neurology: Awake and Alert
Skin: Warm
Labs/Micro/Reports
Lab Data
12/26/24 03:19
12/26/24 03:19
Laboratory Results
12/25/24 12/25/24
09:46 11:15
PT 13.2
INR 0.97
APTT 26.7
pH 7.39
pCO2 55 H
pO2 88
HCO3 33.3 H
O2 Delivery Level
Microbiology
12/25/24 00:28 Blood/Venous Blood Culture - Preliminary
No Growth in 24 hours- Final report to follow
12/25/24 00:25 Blood/Venous Blood Culture - Preliminary
No Growth in 24 hours- Final report to follow
12/25/24 03:10 Nasal Swab Influenza Types A & B (SUSHANT) - Final
Negative for Influenza A & B, NAAT
Negative results must be combined with clinical observations
and patient history.
Nucleic Acid Amplification test (NAAT)performed on the
[employer] platform.
[2024-12-26] MEDS: DUONEB 3 ML INH ×4 (07:27→20:32)
--- NOTE | 2024-12-26 07:30 | PTCARENOTE ---
Received patient asleep, arousable to voice, on BiPAP FiO2 60%, NSR w/ LBBB, BP WNL, Purewick in place draining yellow urine.
--- NOTE | 2024-12-26 07:30 | PTCARENOTE ---
Received patient asleep, arousable to voice, on BiPAP FiO2 60%, NSR w/ RBBB, BP WNL, Purewick in place draining yellow urine.
[2024-12-26] MEDS: NOVOLOG FLEXPEN-MODERATE RESISTANCE 1 UNITS SC ×2 (08:30→16:59)
[2024-12-26] MEDS: NOVOLOG FLEXPEN 10 UNITS SC ×3 (08:30→16:59)
[2024-12-26 08:35] LABS: Glucose - Point of Care 168 mg/dl (70-99)
[2024-12-26] MEDS: LANTUS 0.2 UNITS SC (08:45)
[2024-12-26] MEDS: MUCINEX 600 MG PO ×2 (08:45→21:22)
[2024-12-26] MEDS: PROTONIX 40 MG PO (08:45)
[2024-12-26] MEDS: VIBRAMYCIN 100 MG PO ×2 (08:45→21:22)
[2024-12-26] MEDS: FARXIGA 10 MG PO (08:45)
[2024-12-26] MEDS: COLACE 100 MG PO ×2 (08:46→21:22)
[2024-12-26] MEDS: LASIX 40 MG IV (08:46)
[2024-12-26] MEDS: PROZAC 20 MG PO (08:46)
[2024-12-26] MEDS: SOLU-MEDROL PF 40 MG IV (08:47)
[2024-12-26] MEDS: ZYLOPRIM 300 MG PO (08:47)
--- NOTE | 2024-12-26 11:47 | PTOTSP ---
Speech Therapy Evaluation
Pt seen for bedside swallow evaluation. Pt is at an increased risk for aspiration given PMH of respiratory failure, intubation, COPD, GERD, supplemental oxygen, Chronic HFpEF, psychiatric history, and developmental delay. Pt currently on high flow
nasal cannula (50L/min) (non-invasive respiratory support). With regular solids trials, pt impulsively took large bites, increasing the risk of choking. Pt managed minced and moist with functional oral phase and no overt s/sx of aspiration. No
changes in respiration during bedside assessment. Cannot rule out silent aspiration at bedside. WBC WNL.�
Previous VSE (02/07/24) indicated penetration but no aspiration.
Recommendation:
1. IDDSI Level 5 Minced and Moist with Thin liquids. Recommend supervision due to impulsivity
2. Medication as best tolerated
3. Standard aspiration precautions, including slow rate, small bites, intersperse liquids, 90 degrees at least 30 min after meals due to GERD
4. [employer] SCM CONSULTANT to follow to ensure diet tolerance
--- NOTE | 2024-12-26 12:00 | PTCARENOTE ---
Reassessed the patient, tolerating HFNC 50L 80% FiO2, PT saw and evaluated the patient, no other changes from previous assessments.
[2024-12-26] MEDS: NOVOLOG FLEXPEN-MODERATE RESISTANCE 3 UNITS SC (12:21)
[2024-12-26] MEDS: TYLENOL 650 MG PO (12:26)
[2024-12-26 12:29] LABS: Glucose - Point of Care 214 mg/dl (70-99)
--- NOTE | 2024-12-26 16:00 | PTCARENOTE ---
Reassessed the patient, tolerating HFNC 40L 70% FiO2, no other changes from previous assessments.
--- NOTE | 2024-12-26 16:25 | W.PN.HOSP.TC ---
Today's Communication/Plan
-
Wean off oxygen as possible
Monitor weight and creatinine with IV diuresis
Taper of steroids per pulm recommendation
Finish 5-day course of antibiotic
Diet adjusted based on speech therapy recommendation
Assessment / Plan
Assessment / Plan
Acute hypoxic respiratory failure
- Have history of chronic hypoxia on oxygen through [facility] cann[facility]
- RR called on 12/25 AM for resp distress
- Patient required to be placed on mid flow/nonrebreather with SpO2 coming up to 80s
- Patient was on normal saline at rate of 250 mL/h, discontinued
- Patient was started on IV diuretics
- Already getting antibiotic for possible pneumonia
- Transferred to IMU and then later to ICU level for need of NIV
- Pulmonology has been consulted
- Patient weaned off of NIV and currently on high flow.
Bibasilar Pneumonia
Sepsis - POA
- Admit for further evaluation and treatment.
- Patient presents with fever, tachycardia, tachypnea and CXR findings consistent with pneumonia.
- COVID / Flu negative in the ED.
- Abx for pneumonia.
- Speech cleared for IDDSI 5 diet
- Follow for clinical improvement.
COPD with Acute Exacerbation secondary to the above
Chronic Hypoxemic Respiratory Failure
- Stable on usual 2 lpm of oxygen thus far.
- Diffuse wheezing appreciated on exam.
- Currently on IV Solu-Medrol, will be tapered down to oral steroids once clinically improved
- Nebs ATC and PRN.
- Follow for clinical improvement.
Chronic HFpEF
- Stable. Does not appear grossly volume overloaded at present.
- Patient may have component of iatrogenic volume overload from IV fluid provided in ER.
- On IV diuretics. follow weight/cr
- Follow I/Os, daily weights, etc.
Benign Hypertension
- Currently with low normal BP.
- Hold usual antihypertensive medications acutely.
DM-II
- Stable. Continue basal : bolus insulin regimen.
- Follow glucose and cover with SSI as needed.
- A1C was 7.5 % last month.
Bipolar / Schizophrenia
- Stable. Continue usual psychotropic med regimen.
Hypothyroidism
- Continue usual T4 supplementation.
Obesity due to excess calories
CIELO on CPAP
- Affects all aspects of care.
- Encourage healthy diet and increased activity with goal of weight loss.
- Continue nightly PAP therapy.
DVT Prophylaxis: Lovenox
Code Status: Full
Total critical care time 38 mins . Total critical care time documented does not include time spent on separately billed procedures or the services of residents, students, nurses or physician assistants. I personally saw and examined the patient. I
have reviewed all diagnostic interpretations and treatment plans as written. I was present for the jimenez portions of any procedures performed and the inclusive time noted in any critical care statement. Critical care time includes patient management
by me, time spent at the patients bedside, time to review lab and imaging results, discussing patient care, documentation in the medical record, and time spent with the family or caregiver.
Anticipated Discharge: > 48 hours
Subjective/Interval History
-
Date of Service: December 26, 2024
Patient was maintained on NIV through the night, has been switched to high flow in the morning
No acute events reported overnight
Objective Data
-
Vital Signs:
Vital Signs
Temp Pulse Resp BP Pulse Ox
98.7 F 88 18 132/77 96
12/26/24 15:24 12/26/24 15:24 12/26/24 15:24 12/26/24 15:00 12/26/24 15:25
I&O
12/25/24 12/26/24 12/27/24
06:59 06:59 06:59
Intake Total 400 / 400 960 / 960
Output Total 2500 / 2500 850 / 850
Balance -2100 / -2100 110 / 110
Review of Systems
-
Unable to obtain full review of systems at this time due to: Other (Patient not communicating any symptoms on evaluation)
Physical Exam
-
General: Morbidly Obese
HEENT: Oxygen (High flow 50L/min)
Respiratory: Negative Wheezes
Cardiac: Regular Rhythm and S1/S2; Negative Tachycardic
GI: Soft, Nontender and Nondistended
Musculoskeletal: No Edema
Neuro: Awake, Alert and No Motor Deficits
Psych: Calm
[2024-12-26 17:05] LABS: Glucose - Point of Care 181 mg/dl (70-99)
[2024-12-26] MEDS: LOVENOX 40 MG SC (17:05)
--- NOTE | 2024-12-26 20:00 | PTCARENOTE ---
Assumed care, pt Ox3, ALEGRIA and follows commands, MENTASTA, slow garbled speech, NSR on the monitor, +pulses, +2 GA, Lungs coarse, crackles @ bases c exp. wheeze, SpO2 94% on HF 15L 60%, BSx4 round obese, PW c yellow output, Afebrile, 20G RAC, 22G YARY,
call azevedo within reach and bed alarm applied, otherwise refer to documentation.
[2024-12-26 21:20] LABS: Glucose - Point of Care 183 mg/dl (70-99)
[2024-12-26] MEDS: KLONOPIN 1 MG PO (21:22)
[2024-12-26] MEDS: ZYPREXA 10 MG PO (21:22)
[2024-12-26] MEDS: ZYPREXA 5 MG PO (21:22)
[2024-12-26] MEDS: KLONOPIN 0.5 MG PO (21:22)
[2024-12-26] MEDS: LIPITOR 20 MG PO (21:22)
[2024-12-26] MEDS: DEPAKOTE ER (24 HR RELEASE) 1000 MG PO (21:22)
[2024-12-26] MEDS: MELATONIN 5 MG PO (21:23)
[2024-12-26] MEDS: NOVOLOG FLEXPEN 1 UNITS SC (22:00)
[2024-12-26] MEDS: ROCEPHIN 1000 MG IV (23:21)
[2024-12-26] MEDS: STERILE WATER FOR INJECTION 10 ML IV (23:21)
[2024-12-27] VITALS (20 sets, daily range): BP systolic 121–154; BP diastolic 69–94; PULSE 2–81; BMI 36.6
--- NOTE | 2024-12-27 | PTCARENOTE ---
systems reviewed, no changes from previous assessment, refer to documentation.
[2024-12-27 04:32] LABS: Hematocrit 36.4 % (37.0-47.0); Hemoglobin 11.9 g/dL (12.0-16.0); Mean Corp Hgb Conc. 32.7 g/dL (33.0-37.0); Mean Corpuscular Volume 107.7 fL (81.0-99.0); Platelet Count 269 10^3/uL (130-400); Red Cell Dist. Width 14.3 % (11.5-14.5)
[2024-12-27 04:50] LABS: Blood Urea Nitrogen 44 mg/dl (7-17); Calcium 9.4 mg/dl (8.4-10.2); Carbon Dioxide 33 mmol/L (22-30); Chloride 102 mmol/L (98-107); Estimated Creatinine Clearance 72 ml/min; Glucose 141 mg/dl (70-99); Potassium 4.9 mmol/L (3.5-5.1); Sodium 139 mmol/L (135-145); eGFR > 60.00
[2024-12-27] MEDS: SYNTHROID 100 MCG PO (05:02)
[2024-12-27] MEDS: TYLENOL 650 MG PO ×3 (05:02→17:21)
--- NOTE | 2024-12-27 05:28 | PTCARENOTE ---
Addendum entered by Steven Ramirez RN 12/27/24 05:29:
labs sent, CHG bath, weight obtained, Tylenol given for 5/10 R knee pain,
Original Note:
systems reviewed, no changes from previous assessment, refer to documentation.
--- NOTE | 2024-12-27 07:05 | PTCARENOTE ---
Received patient in sleep, arousable to voice, on BiPAP FiO2 50%, NSR, BP WNL, Purewick in place draining yellow urine.
[2024-12-27] MEDS: DUONEB 3 ML INH ×3 (07:26→19:58)
[2024-12-27] MEDS: SOLU-MEDROL PF 40 MG IV (08:19)
[2024-12-27] MEDS: LANTUS 0.2 UNITS SC (08:19)
[2024-12-27] MEDS: LASIX 40 MG IV (08:19)
[2024-12-27] MEDS: COLACE 100 MG PO ×2 (08:20→21:04)
[2024-12-27] MEDS: NOVOLOG FLEXPEN 10 UNITS SC ×3 (08:20→17:22)
[2024-12-27] MEDS: VIBRAMYCIN 100 MG PO ×2 (08:20→21:03)
[2024-12-27] MEDS: PROZAC 20 MG PO (08:20)
[2024-12-27] MEDS: PROTONIX 40 MG PO (08:20)
[2024-12-27] MEDS: NOVOLOG FLEXPEN-MODERATE RESISTANCE 1 UNITS SC (08:20)
[2024-12-27] MEDS: MUCINEX 600 MG PO ×2 (08:20→21:04)
[2024-12-27] MEDS: FARXIGA 10 MG PO (08:20)
[2024-12-27] MEDS: ZYLOPRIM 300 MG PO (08:21)
[2024-12-27 08:23] LABS: Glucose - Point of Care 160 mg/dl (70-99)
--- NOTE | 2024-12-27 09:03 | W.PN.HOSP.TC ---
Today's Communication/Plan
-
Contique to wean off O2.
Assessment / Plan
Assessment / Plan
64-year-old non-smoking female with a history of:
Schizophrenia.
Bipolar.
Borderline personality disorder
Diabetes.
Hypertension.
Hypothyroid.
Morbid obesity.
CIELO/obesity hypoventilation suspected
Chronic hypercapnia-pCO2 45-55
History of mild restrictive lung disease
(post�bronchodilator FVC: 69% / 2.04 L via spirometry on 12/12/[id number]
Mild aortic stenosis
Anemia.
GERD.
Chronic heart failure preserved EF.
Appendectomy.
Cholecystectomy.
Rectal prolapse.
Right arm surgery self lacerations.
presented with hacking cough with progressive hypoxemia
Initial assessment was:
Acute hypoxemic respiratory failure due to bilateral pneumonia
Bibasilar pneumonia-aspiration risk
COPD/asthma with acute atrcepjissps-[id number]
Acute on chronic Heart failure preserved EF
Hyperglycemia
Lactic acidosis
1. Acute hypoxic respiratory failure - improving
- history of chronic hypoxia on oxygen through nasal cannula 2 L at [facility]
- RR called on 10 AM for resp distress
- Patient required to be placed on mid flow/nonrebreather with SpO2 coming up to 80s
- Patient was on normal saline at rate of 250 mL/h, discontinued
- Patient was started on IV diuretics
- Already getting antibiotic for possible pneumonia
- Transferred to IMU and then later to ICU level for need of NIV
- Pulmonology has been consulted
- Patient weaned off of NIV and currently on high flow (8L)
Continue to wean off O2 as tolerated
2. Bibasilar Pneumonia - improving
Sepsis - POA
- Patient presents with fever, tachycardia, tachypnea and CXR findings consistent with pneumonia.
- COVID / Flu negative in the ED.
- Abx for pneumonia.
- Speech cleared for IDDSI 5 diet
- Follow for clinical improvement.
3. COPD with Acute Exacerbation secondary to the above, with Chronic Hypoxemic Respiratory Failure
- Diffuse wheezing appreciated on initial exam.
- Currently on IV Solu-Medrol, will be tapered down to oral steroids once clinically improved
- Nebs ATC and PRN.
- Follow for clinical improvement.
4. Chronic HFpEF
- Stable. Does not appear grossly volume overloaded at present.
- Patient may have component of iatrogenic volume overload from IV fluid provided in ER.
- On IV diuretics. follow weight/cr
- Follow I/Os, daily weights, etc.
5. Benign Hypertension
- Currently with low normal BP.
- Hold usual antihypertensive medications acutely.
6. DM-II
- Stable. Continue basal : bolus insulin regimen.
- Follow glucose and cover with SSI as needed.
- A1C was 7.5 % last month.
7. Bipolar / Schizophrenia
- Stable. Continue usual psychotropic med regimen.
8. Hypothyroidism
- Continue usual T4 supplementation.
9. Obesity due to excess calories, with CIELO on CPAP
- Affects all aspects of care.
- Encourage healthy diet and increased activity with goal of weight loss.
- Continue nightly PAP therapy.
DVT Prophylaxis: Lovenox
Code Status: Full
Anticipated Discharge: > 48 hours
Subjective/Interval History
-
Date of Service: December 27, 2024
Nursing stated that she had a good night and the O2 weaning is going well.
Objective Data
-
Labs:
Laboratory Results
12/27/24
04:08
WBC 7.3
Hgb 11.9 L
Hct 36.4 L
Plt Count 269
Sodium 139
Potassium 4.9
Chloride 102
Carbon Dioxide 33 H
BUN 44 H
Creatinine 0.8
Glucose 141 H
Calcium 9.4
Vital Signs:
Vital Signs
Temp Pulse Resp BP Pulse Ox
98.4 F 85 15 139/71 95
12/27/24 07:19 12/27/24 08:19 12/27/24 07:31 12/27/24 08:19 12/27/24 08:29
I&O
12/26/24 12/27/24 12/28/24
06:59 06:59 06:59
Intake Total 400 / 400 1320 / 1320 480 / 480
Output Total 2500 / 2500 1250 / 1250 200 / 200
Balance -2100 / -2099 70 / 70 280 / 280
Review of Systems
-
Unable to obtain full review of systems at this time due to: Patient Non-verbal
Physical Exam
-
General: Well Developed, Well Nourished, No Apparent Distress, Comfortable and Obese
HEENT: Atraumatic, Nose Appears Normal and Ears Appear Normal
Respiratory: Clear to Auscultation and Decreased Breath Sounds
Cardiac: Regular Rhythm and S1/S2
GI: Soft, Nontender and Nondistended
Musculoskeletal: No Clubbing, No Cyanosis and No Edema
Skin: Warm and Dry
Neuro: Awake and Alert
Psych: Calm
Data Reviewed
-
Labs: Labs Reviewed by me
--- NOTE | 2024-12-27 09:44 | W.PN.INTV ---
Today's Communication / Plan
Recommendations
- Transition to mid flow nasal cannula during daytime
- Transition P60 to BiPAP nightly and when napping, IPAP/EPAP 14/6
- Discontinue IV steroid, transition to prednisone 30 mg daily
- Transferred to IMU, pulmonary service will continue to follow along
- VBG in a.m.
- Increase activity as tolerated
- Incentive spirometry
Assessment
-
64-year-old non-smoking female with a history of schizophrenia, diabetes, asthma recently discharged from the hospital for respiratory issues discharged on 2 L of oxygen and CPAP at night presented with hacking cough with progressive hypoxemia and
pulmonary consulted for hypoxemia 12/25/2024
Acute hypoxemic respiratory failure due to bilateral pneumonia
Bibasilar pneumonia-aspiration risk
COPD/asthma with acute [id number]
Acute on chronic Heart failure preserved EF
Hyperglycemia
Lactic acidosis
Overview 12/27. Work of breathing much improved, appears comfortable on BiPAP. Transition to high flow this morning, 75% FiO2, 40 L. MAP of 93 and saturating 98%.
Conditions present prior to admission:
Schizophrenia.
Bipolar.
Borderline personality disorder
Diabetes.
Hypertension.
Hypothyroid.
Morbid obesity.
CIELO/obesity hypoventilation suspected
Chronic hypercapnia-pCO2 45-55
History of mild restrictive lung disease (post�bronchodilator FVC: 69% / 2.04 L via spirometry on 12/12/[id number]
Mild aortic stenosis
Anemia.
GERD.
Chronic heart failure preserved EF.
Appendectomy. Cholecystectomy. Rectal prolapse. Right arm surgery self lacerations.
Plan
Respiratory decompensation the patient with chronic hypoxemia and mild chronic hypercapnia due to pneumonia and asthma exacerbation along with volume overload
Supplemental oxygen as needed-transition to mid flow during daytime and BiPAP nightly, 14 x 6. Also BiPAP when napping
Patient is a full code and has been intubated in the past-intubated mechanically ventilated if necessary
DC IV steroids, transition to prednisone 30 mg daily
Responded well to Lasix 40 mg IV x 2 on 12/25. Pedal edema essentially resolved, continue 40 mg IV daily, BNP noted to be elevated.
Mucolytic's-add Mucinex
DuoNebs
Theophylline-chronic medication
Aspiration precautions
Follow radiographically
Await cultures
Sputum culture pending
Blood cultures pending
Influenza negative
Ceftriaxone and doxycycline empirically
Monitor renal function, electrolytes, intake/output, lower extremity edema and weight
Replace electrolytes as needed
DVT prophylaxis-on Lovenox
GI prophylaxis-pantoprazole
Nutrition with aspiration precaution
Early mobilization
Transferred to IMU, pulmonary service will continue to follow along
The patient was last seen by Dr. Davis in the office 12/12/20-subsequently she followed up with [facility]'s as our office did not except [facility]
Diagnostic data:
CXR 11/22/24-Similar appearance of the basilar patchy airspace opacities, more pronounced on the right, which may represent pneumonia or pneumonitis.
Chest x-ray 12/25/2024-right basilar pneumonia
CT chest 01/21/24-multiple pulmonary nodules stable dating back to 02/06/23-over 10 nodules, less than [address] chest 01/28/2024-no central pulmonary emboli, bilateral lower lobe consolidations left greater than right likely representing atelectasis and pneumonia
Echocardiogram 11/23/2024-EF 58%, normal diastolic function, mild mitral regurgitation
Post�bronchodilator FVC: 69% / 2.04 L via spirometry on 12/12/2020; postbronchodilator FVC: 42% predicted (1.18 L) with TLC 124% and VC 40% predicted via PFTs from 03/07/2022 (through [facility]). She did have difficulty following instructions per
certified veterinary technician during this test.
ABG 01/30/24-30 384/7.52-decrease minute ventilation-rate decreased to 12
VBG 01/31/24-40 6/124/7.4
VBG 02/01/24-38/180/7.48-pulse oximetry does not correlate and routinely underestimates PaO2
ABG 01/29/24-40 8/183/7 0.4-100% saturation on ABG and only 93% saturation on peripheral monitor
ABG 12/25/2024--55/88/7.39
Subjective Dataa
Subjective Data
Date of Service:
Date of Service: December 27, 2024
Subjective:
Patient appears more comfortable, tolerating BiPAP nightly well. Oxygen requirement decreasing
Review of Systems
Genitourinary: Other (No new symptoms reported)
Objective Data
Data Reviewed
Vital Signs / I&O / Oxygen:
Vital Signs
Temp Pulse Resp BP Pulse Ox
98.4 F 85 15 139/71 95
12/27/24 07:19 12/27/24 08:19 12/27/24 07:31 12/27/24 08:19 12/27/24 08:29
Intake and Output
12/26/24 12/27/24 12/28/24
06:59 06:59 06:59
Intake Total 400 / 400 1320 / 1320 480 / 480
Output Total 2500 / 2500 1250 / 1250 200 / 200
Balance -2100 / -2100 70 / 70 280 / 280
SaO2 [NIV (Non Invasive 97
Ventilation)]
SaO2 95
Nasal Cannula flow liters per 40
minute
Physical Exam
General: Comfortable
HEENT: Normocephalic
Cardiovascular: S1-S2
Respiratory: Clear and Non-Labored Respirations
GI: Soft
Neurology: Awake and Alert
Skin: Warm
Labs/Micro/Reports
Lab Data
12/27/24 04:08
12/27/24 04:08
Microbiology
12/25/24 00:28 Blood/Venous Blood Culture - Preliminary
No Growth in 48 hours- Final report to follow
12/25/24 00:25 Blood/Venous Blood Culture - Preliminary
No Growth in 48 hours- Final report to follow
12/25/24 11:15 Nose MRSA Screen - Final
No Methicillin Resistant Staphylococcus aureus isolated.
12/25/24 03:10 Nasal Swab Influenza Types A & B (SUSHANT) - Final
Negative for Influenza A & B, NAAT
Negative results must be combined with clinical observations
and patient history.
Nucleic Acid Amplification test (NAAT)performed on the
[employer] platform.
--- NOTE | 2024-12-27 12:00 | PTCARENOTE ---
Reassessed the patient, OOB to chair w/ a walker w/ 1 person assistance, gait steady, on Midflow O2 4L now, no other changes from previous assessments.
[2024-12-27] MEDS: NOVOLOG FLEXPEN-MODERATE RESISTANCE 3 UNITS SC (12:13)
[2024-12-27 12:23] LABS: Glucose - Point of Care 200 mg/dl (70-99)
--- NOTE | 2024-12-27 14:00 | PTCARENOTE ---
While this RN was doing patient care in another room, patient removed her PIVs, heart monitor leads, BP cuff, Pulse OX d/t not happy with her current diet. This RN was informed by other staff on the unit that patient verbalized frustration about not
being able to eat regular food. This RN went into room explained the previous O2 needs and the plan of speech evaluation. Patient agreed with speech reevaluation tmr.
[2024-12-27] MEDS: DUONEB INH (15:06)
--- NOTE | 2024-12-27 16:00 | PTCARENOTE ---
Reassessed the patient, Midflow weaned down to 2L, back to bed, removed Purewick, can ring the azevedo and walk to the bathroom w/ a walker w/ 1 person assistance.
[2024-12-27 17:13] LABS: Glucose - Point of Care 133 mg/dl (70-99)
[2024-12-27] MEDS: LOVENOX 40 MG SC (17:21)
[2024-12-27] MEDS: NOVOLOG FLEXPEN-MODERATE RESISTANCE SC (17:22)
--- NOTE | 2024-12-27 20:00 | PTCARENOTE ---
Pt received awake alert and oriented. Remains on O2 2L NC and sats 94%. Ambulates into bathroom with assist of 1 and rolling walker with just supervision. Steady on her feet. Assessment as charted.
[2024-12-27 21:03] LABS: Glucose - Point of Care 187 mg/dl (70-99)
[2024-12-27] MEDS: MELATONIN 5 MG PO (21:03)
[2024-12-27] MEDS: DEPAKOTE ER (24 HR RELEASE) 1000 MG PO (21:03)
[2024-12-27] MEDS: KLONOPIN 1 MG PO (21:04)
[2024-12-27] MEDS: ZYPREXA 10 MG PO (21:04)
[2024-12-27] MEDS: LIPITOR 20 MG PO (21:04)
[2024-12-27] MEDS: ZYPREXA 5 MG PO (21:04)
[2024-12-27] MEDS: KLONOPIN 0.5 MG PO (21:04)
[2024-12-27] MEDS: ROCEPHIN 1000 MG IV (23:54)
[2024-12-27] MEDS: STERILE WATER FOR INJECTION 10 ML IV (23:55)
[2024-12-28] VITALS (17 sets, daily range): BP systolic 86–152; BP diastolic 71–118; PULSE 2–78; BMI 36.1
[2024-12-28 05:25] LABS: Venous Blood Gas B.E. 10.1 mmol/L (-4 to +4); Venous Blood Gas O2 Sat % 99.3 %
[2024-12-28 05:36] LABS: Hematocrit 37.2 % (37.0-47.0); Hemoglobin 12.4 g/dL (12.0-16.0); Mean Corp Hgb Conc. 33.3 g/dL (33.0-37.0); Mean Corpuscular Volume 110.1 fL (81.0-99.0); Platelet Count 260 10^3/uL (130-400); Red Cell Dist. Width 13.8 % (11.5-14.5)
[2024-12-28 06:05] LABS: ALT (SGPT) 27 U/L (0-35); AST (SGOT) 23 U/L (14-36); Albumin 3.4 g/dl (3.5-5.0); Alkaline Phosphatase 71 U/L (38-126); Blood Urea Nitrogen 40 mg/dl (7-17); Calcium 8.9 mg/dl (8.4-10.2); Carbon Dioxide 35 mmol/L (22-30); Chloride 102 mmol/L (98-107); Estimated Creatinine Clearance 71 ml/min; Glucose 120 mg/dl (70-99); Potassium 4.4 mmol/L (3.5-5.1); Sodium 141 mmol/L (135-145); Total Protein 6.1 g/dl (6.3-8.2); eGFR > 60.00
[2024-12-28] MEDS: SYNTHROID 100 MCG PO (06:20)
--- NOTE | 2024-12-28 06:33 | PTCARENOTE ---
Slept well during night. No complaints offered.
[2024-12-28] MEDS: DUONEB 3 ML INH ×4 (08:02→19:41)
[2024-12-28 08:14] LABS: Glucose - Point of Care 125 mg/dl (70-99)
[2024-12-28] MEDS: LASIX 40 MG IV (09:16)
--- NOTE | 2024-12-28 09:17 | W.PN.PUL3 ---
Today's Communication / Plan
-
Overall, patient is improving as she was on high flow nasal cannula 100% FiO2, 55 L/min alternating with the V60, and is now on 3-4 L/min
Continue with BiPAP with sleep while trending VBG to assure pH + pCO2 remained stable
Slow prednisone taper
Increase activity as tolerated
PT/OT
Okay to resume her home theophylline, which was initially being held due to her tenuous respiratory status
Mucolytics
Broad-spectrum antibiotics
IV Lasix
Trend BNP; replete K>4, Mg>2
Follow-up infectious workup and check sputum culture if she can produce a decent sample
No contraindication from pulmonary perspective to transfer out of IMU to telemetry. Pulmonary service will continue to follow along
Assessment
-
64-year-old non-smoking female with a history of schizophrenia, diabetes, asthma recently discharged from the hospital for respiratory issues discharged on 2 L of oxygen and CPAP at night presented with hacking cough with progressive hypoxemia and
pulmonary consulted for hypoxemia 12/25/2024
Acute hypoxemic respiratory failure due to bilateral pneumonia
Bibasilar pneumonia-aspiration risk
COPD/asthma with acute vcegzizwuigy-qzj-mimaml
Acute on chronic Heart failure preserved EF
Hyperglycemia
Lactic acidosis
Conditions present prior to admission:
Schizophrenia.
Bipolar.
Borderline personality disorder
Diabetes.
Hypertension.
Hypothyroid.
Morbid obesity.
CIELO/obesity hypoventilation suspected
Chronic hypercapnia-pCO2 45-55
History of mild restrictive lung disease (post�bronchodilator FVC: 69% / 2.04 L via spirometry on 12/12/20201944-[id number]-[id number]
Mild aortic stenosis
Anemia.
GERD.
Chronic heart failure preserved EF.
Appendectomy. Cholecystectomy. Rectal prolapse. Right arm surgery self lacerations.
Plan
Respiratory decompensation the patient with chronic hypoxemia and mild chronic hypercapnia due to pneumonia and asthma exacerbation along with volume overload
Patient had repeat blood gas this morning (12/28) showing fully compensated chronic hypercapnia with pH 7.40, pCO2 60
Continue weaning down supplemental oxygen as tolerated while keeping SpO2 >88% (she is on 2 L/min chronically)
BiPAP with sleep and prn during the day
Trend VBG to assure pH and pCO2 remain stable
Patient is a full code and has been intubated in the past
DCd IV steroids, transition to prednisone 30 mg daily -continue to wean as she clinically improves
Responded well to Lasix 40 mg IV x 2 on 12/25. Pedal edema essentially resolved, continue 40 mg IV daily, BNP noted to be elevated - continue to trend
Mucolytics with Mucinex
DuoNebs
Theophylline-chronic medication (currently not being given - this can be resumed as pt now able to swallow)
Aspiration precautions
Follow CXR, ultimately with repeat in 4 to 6 weeks to assure her pneumonia improves
Await cultures
Sputum culture pending (not collected yet)
Blood cultures shows NGTD (collected 12/25)
Influenza negative
Ceftriaxone and doxycycline empirically
Monitor renal function, electrolytes, intake/output, lower extremity edema and weight
Replace electrolytes as needed with K>4, Mg>2, dale while getting IV lasix
DVT prophylaxis-on Lovenox
GI prophylaxis- pantoprazole (home med)
Early mobilization as tolerated
Pt currently in IMU. No contraindication from pulmonary perspective to downgrade to telemetry. Pulmonary service will continue to follow along.
The patient was last seen by Dr. Davis in the office 12/12/20-subsequently she followed up with [facility] as our office did not except [facility]
Diagnostic data:
CXR 11/22/24-Similar appearance of the basilar patchy airspace opacities, more pronounced on the right, which may represent pneumonia or pneumonitis.
Chest x-ray 12/25/2024-right basilar pneumonia
CT chest 01/21/24-multiple pulmonary nodules stable dating back to 02/06/23-over 10 nodules, less than [address] chest 01/28/2024-no central pulmonary emboli, bilateral lower lobe consolidations left greater than right likely representing atelectasis and pneumonia
Echocardiogram 11/23/2024-EF 58%, normal diastolic function, mild mitral regurgitation
Post�bronchodilator FVC: 69% / 2.04 L via spirometry on 12/12/2020; postbronchodilator FVC: 42% predicted (1.18 L) with TLC 124% and VC 40% predicted via PFTs from 03/07/2022 (through [facility]). She did have difficulty following instructions per
weatherseal technician during this test.
ABG 01/30/24-30 3/84/7.52-decrease minute ventilation-rate decreased to 12
VBG 01/31/24-40 6/124/7.4
VBG 02/01/24-38/180/7.48-pulse oximetry does not correlate and routinely underestimates PaO2
ABG 01/29/24-40 8/183/7 0.4-100% saturation on ABG and only 93% saturation on peripheral monitor
ABG 12/25/2024--55/88/7.39
Total time spent today was 36 minutes for this encounter. Time includes reviewing laboratory test/imaging results, reviewing pertinent medical records, obtaining and reviewing medical history, performing an appropriate exam, ordering medications,
tests and procedures. Time also includes documentation of this encounter, coordinating patient care and communicating with other healthcare professionals. Total time does not include separately billed tests performed on this date of service.
Subjective Data
-
Date of Service:
Date of Service: December 28, 2024
Chief Complaint: Pulmonary Follow Up
Subjective:
Patient agitated this morning. She was redirectable though. She mainly wants to get up out of bed and go home. Afebrile overnight. Currently on 4 L/min nasal cannula breathing comfortably.
Review of Systems
General: Other (Unobtainable due to patient's acute clinical status with agitation)
Objective Data
Data Reviewed
Vital Signs / I&O / Oxygen:
Vital Signs
Temp Pulse Resp BP Pulse Ox
97.9 F 78 20 147/73 94
12/28/24 08:07 12/28/24 08:04 12/28/24 08:04 12/28/24 08:00 12/28/24 08:04
Intake and Output
12/27/24 12/28/24 12/29/24
06:59 06:59 06:59
Intake Total 1320 / 1320 1640 / 1640
Output Total 1250 / 1250 1450 / 1450
Balance 70 / 70 190 / 190
SaO2 [NIV (Non Invasive 97
Ventilation)]
SaO2 94
Nasal Cannula flow liters per 2
minute
Physical Exam
General: Respiratory Distress (negative), Chills (negative) and Good Appetite
HEENT: Normocephalic, Anicteric and Other (Thick neck)
Cardiovascular: S1-S2 and Peripheral Edema (negative)
Respiratory: Wheeze (negative), Crackles (Bibasilar), Rhonchi (negative), Non-Labored Respirations and Stridor (negative)
GI: Soft, Distended (Abdominal obesity), Non Tender and Normal Bowel Sounds
Neurology: Awake, Alert, Tremors (negative) and Other (Agitated with yelling/screaming and crying at times)
Skin: Warm, Dry, Cyanosis (negative) and Jaundice (negative)
Labs/Micro/Reports
Lab Data
12/28/24 05:17
12/28/24 05:17
Microbiology
12/25/24 00:28 Blood/Venous Blood Culture - Preliminary
No Growth in 72 hours- Final report to follow
12/25/24 00:25 Blood/Venous Blood Culture - Preliminary
No Growth in 72 hours- Final report to follow
12/25/24 11:15 Nose MRSA Screen - Final
No Methicillin Resistant Staphylococcus aureus isolated.
[2024-12-28] MEDS: PROZAC 20 MG PO (09:28)
[2024-12-28] MEDS: FARXIGA 10 MG PO (09:28)
[2024-12-28] MEDS: DELTASONE 30 MG PO (09:29)
[2024-12-28] MEDS: MUCINEX 600 MG PO ×2 (09:29→20:52)
[2024-12-28] MEDS: ZYLOPRIM 300 MG PO (09:29)
[2024-12-28] MEDS: PROTONIX 40 MG PO (09:29)
[2024-12-28] MEDS: VIBRAMYCIN 100 MG PO ×2 (09:29→20:52)
[2024-12-28] MEDS: COLACE 100 MG PO ×2 (09:29→20:51)
[2024-12-28] MEDS: NOVOLOG FLEXPEN-MODERATE RESISTANCE SC (09:31)
[2024-12-28] MEDS: TYLENOL 650 MG PO ×2 (09:38→13:40)
[2024-12-28] MEDS: NOVOLOG FLEXPEN SC (10:06)
[2024-12-28] MEDS: LANTUS 0.2 UNITS SC (10:07)
--- NOTE | 2024-12-28 10:25 | PTCARENOTE ---
Assumed care of pt at 0700. Pt was sleeping with BIPAP on at rounds. Returned when breakfast was served. Pt very upset over diet order being downgraded. Speech in to see her and will see if dr can put her back on her normal diet. Pt did agree to
take her pills. Pt vitals stable. 99 on 4L. SR on monitor. She does complain of leg pain. Tylenol given.
--- NOTE | 2024-12-28 11:10 | PTCARENOTE ---
Pt upset and crying. She ripped all monitors off and said she is not doing anything until she gets the diet she wants. Text out to hospitalist already.
--- NOTE | 2024-12-28 11:30 | PTCARENOTE ---
Spoke with Dr Yap, verbal taken to upprade to soft and bite sized diet.
[2024-12-28 12:02] LABS: Glucose - Point of Care 195 mg/dl (70-99)
[2024-12-28] MEDS: NOVOLOG FLEXPEN-MODERATE RESISTANCE 1 UNITS SC ×2 (12:56→17:13)
[2024-12-28] MEDS: NOVOLOG FLEXPEN 10 UNITS SC ×2 (12:57→17:13)
--- NOTE | 2024-12-28 12:58 | W.PN.HOSP.TC ---
Today's Communication/Plan
-
Monitor vital signs see plan
Wean oxygen as tolerated
Continue with diuresis
Continue with antibiotic
Continue prednisone
Speech following, continue with soft and bite-size diet
Assessment / Plan
Assessment / Plan
64-year-old non-smoking female with a history of:
Schizophrenia.
Bipolar.
Borderline personality disorder
Diabetes.
Hypertension.
Hypothyroid.
Morbid obesity.
CIELO/obesity hypoventilation suspected
Chronic hypercapnia-pCO2 45-55
History of mild restrictive lung disease
(post�bronchodilator FVC: 69% / 2.04 L via spirometry on 12/12/20203446-[id number]
Mild aortic stenosis
Anemia.
GERD.
Chronic heart failure preserved EF.
Appendectomy.
Cholecystectomy.
Rectal prolapse.
Right arm surgery self lacerations.
presented with hacking cough with progressive hypoxemia
Initial assessment was:
Acute hypoxemic respiratory failure due to bilateral pneumonia
Bibasilar pneumonia-aspiration risk
COPD/asthma with acute ungugjupgbij-jup-pyymmd
Acute on chronic Heart failure preserved EF
Hyperglycemia
Lactic acidosis
Acute hypoxic respiratory failure likely secondary to pneumonia and COPD/asthma exacerbation
- history of chronic hypoxia on oxygen through nasal cannula 2 L at assisted
- RR called on 12/25 AM for resp distress
- Patient required to be placed on mid flow/nonrebreather with SpO2 coming up to 80s
- Patient was on normal saline at rate of 250 mL/h, discontinued
- Patient was started on IV diuretics
- Already getting antibiotic for possible pneumonia
- Pulmonology following
cw NC
cw BIPAP nighttly and when napping per pulmonary
Continue to wean off O2 as tolerated
Bibasilar Pneumonia - improving
Sepsis - POA
- Patient presents with fever, tachycardia, tachypnea and CXR findings consistent with pneumonia.
- COVID / Flu negative in the ED.
- Abx for pneumonia.
- Speech cleared for IDDSI 6 diet
- Follow for clinical improvement.
COPD with Acute Exacerbation secondary to the above, with Chronic Hypoxemic Respiratory Failure
- Diffuse wheezing appreciated on initial exam.
Now on p.o. prednisone, taper per pulmonary
- Nebs ATC and PRN.
- Follow for clinical improvement.
Acute on chronic HFpEF
- On IV diuretics. follow weight/cr
- Follow I/Os, daily weights, etc.
Echo 11/23 with EF 58%
Benign Hypertension
- Currently with low normal BP.
- Hold usual antihypertensive medications acutely.
DM-II
- Stable. Continue basal : bolus insulin regimen.
- Follow glucose and cover with SSI as needed.
- A1C was 7.5 % last month.
Bipolar / Schizophrenia
- Stable. Continue usual psychotropic med regimen.
Hypothyroidism
- Continue usual T4 supplementation.
Obesity due to excess calories, with CIELO on CPAP
- Affects all aspects of care.
- Encourage healthy diet and increased activity with goal of weight loss.
- Continue nightly PAP therapy.
DVT Prophylaxis: Lovenox
Code Status: Full
General: Morbidly Obese
HEENT: Oxygen (High flow 50L/min)
Respiratory: Negative Wheezes
Cardiac: Regular Rhythm and S1/S2; Negative Tachycardic
GI: Soft, Nontender and Nondistended
Musculoskeletal: No Edema
Neuro: Awake, Alert and No Motor Deficits
Psych: Calm
I spent a total of 52 minutes with the patient or on the floor. More than 50% of this time involved counseling and coordination of care.
Anticipated Discharge: > 48 hours
Subjective/Interval History
-
Date of Service: December 28, 2024
Denies pain
Objective Data
-
Labs:
Laboratory Results
10/20/25
05:17
WBC 7.6
Hgb 12.4
Hct 37.2
Plt Count 260
Sodium 141
Potassium 4.4
Chloride 102
Carbon Dioxide 35 H
BUN 40 H
Creatinine 0.8
Glucose 120 H
Calcium 8.9
Total Bilirubin 0.2
AST 23
ALT 27
Alkaline Phosphatase 71
Vital Signs:
Vital Signs
Temp Pulse Resp BP Pulse Ox
97.9 F 81 25 150/77 93
12/28/24 08:07 12/28/24 12:10 12/28/24 12:10 12/28/24 12:10 12/28/24 12:10
I&O
12/27/24 12/28/24 12/29/24
06:59 06:59 06:59
Intake Total 1320 / 1320 1640 / 1640
Output Total 1250 / 1250 1450 / 1450
Balance 70 / 70 190 / 190
--- NOTE | 2024-12-28 14:22 | PTCARENOTE ---
Pt ate 100% of lunch. Much happier now that she is off the minced food. Pt sat in chair for a while afterwards and colored. Rang azevedo to go back to bed. Pt walked into bathroom with assistance with a walker a couple times but she is still heavily
incontinent at times.
--- NOTE | 2024-12-28 14:53 | CM ---
Wean O2, IV/Lasix, IV/Rocephin. Discharge POC: Therapy recommendation for HH vs SNF. If HH return to [facility].
[2024-12-28 16:44] LABS: Glucose - Point of Care 198 mg/dl (70-99)
[2024-12-28] MEDS: LOVENOX 40 MG SC (17:11)
--- NOTE | 2024-12-28 20:30 | PTCARENOTE ---
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 SR HR 80s. RA IV WNL. Sat 92% on 3LNC. mouth care done. inc lg amt cl yellow urine, checo care, purewick applied. POC discussed, bed alarm on, call azevedo with pt.
[2024-12-28] MEDS: ZYPREXA 5 MG PO (20:52)
[2024-12-28] MEDS: MELATONIN 5 MG PO (20:52)
[2024-12-28] MEDS: DEPAKOTE ER (24 HR RELEASE) 1000 MG PO (20:52)
[2024-12-28] MEDS: ZYPREXA 10 MG PO (20:52)
[2024-12-28] MEDS: LIPITOR 20 MG PO (20:52)
[2024-12-28] MEDS: KLONOPIN 0.5 MG PO (20:52)
[2024-12-28] MEDS: KLONOPIN 1 MG PO (20:52)
[2024-12-29] VITALS (15 sets, daily range): BP systolic 137–154; BP diastolic 75–88; PULSE 2–91; O2SAT 93–95; BMI 36.5
[2024-12-29] MEDS: STERILE WATER FOR INJECTION 10 ML IV ×2 (00:30→23:26)
[2024-12-29] MEDS: ROCEPHIN 1000 MG IV ×2 (00:30→23:26)
[2024-12-29] MEDS: SYNTHROID 100 MCG PO (05:26)
[2024-12-29 06:02] LABS: Hematocrit 37.8 % (37.0-47.0); Hemoglobin 12.5 g/dL (12.0-16.0); Mean Corp Hgb Conc. 33.1 g/dL (33.0-37.0); Mean Corpuscular Volume 108.6 fL (81.0-99.0); Platelet Count 265 10^3/uL (130-400); Red Cell Dist. Width 13.7 % (11.5-14.5)
[2024-12-29 06:14] LABS: Blood Urea Nitrogen 39 mg/dl (7-17); Calcium 9.3 mg/dl (8.4-10.2); Carbon Dioxide 34 mmol/L (22-30); Chloride 102 mmol/L (98-107); Estimated Creatinine Clearance 71 ml/min; Glucose 128 mg/dl (70-99); Magnesium 2.4 mg/dl (1.6-2.3); Potassium 4.4 mmol/L (3.5-5.1); Sodium 138 mmol/L (135-145); eGFR > 60.00
--- NOTE | 2024-12-29 07:30 | PTCARENOTE ---
Received patient in sleep, arousable to voice, on BiPAP 14/6 Rate of 12 and O2 4L, NSR, BP WNL, Soft and Bite Sized diet, Purewick in place.
[2024-12-29] MEDS: DUONEB 3 ML INH ×4 (08:09→19:20)
[2024-12-29] MEDS: THEO DUR 150 MG PO ×2 (08:25→20:46)
[2024-12-29] MEDS: COLACE 100 MG PO (08:25)
[2024-12-29] MEDS: FARXIGA 10 MG PO (08:25)
[2024-12-29] MEDS: PROTONIX 40 MG PO (08:25)
[2024-12-29 08:26] LABS: Glucose - Point of Care 135 mg/dl (70-99)
[2024-12-29] MEDS: LASIX 40 MG IV (08:26)
[2024-12-29] MEDS: PROZAC 20 MG PO (08:26)
[2024-12-29] MEDS: ZYLOPRIM 300 MG PO (08:26)
[2024-12-29] MEDS: MUCINEX 600 MG PO ×2 (08:26→20:47)
[2024-12-29] MEDS: DELTASONE 30 MG PO (08:26)
[2024-12-29] MEDS: VIBRAMYCIN 100 MG PO ×2 (08:26→20:47)
[2024-12-29] MEDS: NOVOLOG FLEXPEN 10 UNITS SC ×3 (08:27→16:49)
[2024-12-29] MEDS: NOVOLOG FLEXPEN-MODERATE RESISTANCE SC (08:27)
[2024-12-29] MEDS: LANTUS 0.2 UNITS SC (08:27)
[2024-12-29] MEDS: TYLENOL 650 MG PO (09:04)
--- NOTE | 2024-12-29 09:21 | W.PN.PUL3 ---
Today's Communication / Plan
-
Overall, patient is improving as she was on high flow nasal cannula 100% FiO2, 55 L/min alternating with the V60, and is now on 3-4 L/min
Continue with BiPAP with sleep while occasional trending VBG to assure pH + pCO2 remained stable
Slow prednisone taper
Increase activity as tolerated
PT/OT
Continue theophylline, which was initially being held due to her tenuous respiratory status
Mucolytics
Broad-spectrum antibiotics
IV Lasix
Trend BNP; replete K>4, Mg>2 - -> proBNP is markedly improved today; she is definitely improved with her volume status so would be careful giving IV Lasix much longer otherwise she has risk of becoming too dry - trend sCr and serum HCO3
Follow-up infectious workup and check sputum culture if she can produce a decent sample
No contraindication from pulmonary perspective to transfer out of IMU to telemetry. Pulmonary service will continue to follow along
Assessment
-
64-year-old non-smoking female with a history of schizophrenia, diabetes, asthma recently discharged from the hospital for respiratory issues discharged on 2 L of oxygen and CPAP at night presented with hacking cough with progressive hypoxemia and
pulmonary consulted for hypoxemia 12/25/2024
Acute hypoxemic respiratory failure due to bilateral pneumonia
Bibasilar pneumonia-aspiration risk
COPD/asthma with acute jmuinjwmwtoa-ywo-bslmbu
Acute on chronic Heart failure preserved EF
Hyperglycemia
Lactic acidosis � resolved as of 12/25
Conditions present prior to admission:
Schizophrenia.
Bipolar.
Borderline personality disorder
Diabetes.
Hypertension.
Hypothyroid.
Morbid obesity.
CIELO/obesity hypoventilation suspected
Chronic hypercapnia-pCO2 45-55
History of mild restrictive lung disease (post�bronchodilator FVC: 69% / 2.04 L via spirometry on 12/12/[id number]-[id number]
Mild aortic stenosis
Anemia.
GERD.
Chronic heart failure preserved EF.
Appendectomy. Cholecystectomy. Rectal prolapse. Right arm surgery self lacerations.
Plan
Respiratory decompensation the patient with chronic hypoxemia and mild chronic hypercapnia due to pneumonia and asthma exacerbation along with volume overload
Patient had repeat blood gas yesterday morning (12/28) showing fully compensated chronic hypercapnia with pH 7.40, pCO2 60
Continue weaning down supplemental oxygen as tolerated while keeping SpO2 >88% (she is on 2 L/min chronically)
BiPAP with sleep and prn during the day
Trend VBG to assure pH and pCO2 remain stable
Patient is a full code and has been intubated in the past
DCd IV steroids, transitioned to prednisone 30 mg daily -continue to wean as she clinically improves
Responded well to Lasix 40 mg IV x 2 on 12/25. Pedal edema essentially resolved, continue 40 mg IV daily, BNP noted to be elevated - continue to trend
Mucolytics with Mucinex
DuoNebs
Theophylline-chronic medication (currently not being given - this can be resumed as pt now able to swallow)
Aspiration precautions
Follow CXR, ultimately with repeat in 4 to 6 weeks to assure her pneumonia improves
Await cultures
Sputum culture pending (not collected yet)
Blood cultures shows NGTD (collected 12/25)
Influenza negative
Ceftriaxone and doxycycline empirically
Monitor renal function, electrolytes, intake/output, lower extremity edema and weight
Replace electrolytes as needed with K>4, Mg>2, dale while getting IV lasix
DVT prophylaxis-on Lovenox
GI prophylaxis- pantoprazole (home med)
Early mobilization as tolerated
Pt currently in IMU. No contraindication from pulmonary perspective to downgrade to telemetry. Pulmonary service will continue to follow along.
The patient was last seen by Dr. Davis in the office 12/12/20-subsequently she followed up with [facility] as our office did not accept [facility]
Diagnostic data:
CXR 11/22/24-Similar appearance of the basilar patchy airspace opacities, more pronounced on the right, which may represent pneumonia or pneumonitis.
Chest x-ray 12/25/2024-right basilar pneumonia
CT chest 01/21/24-multiple pulmonary nodules stable dating back to 02/06/23-over 10 nodules, less than [address] chest 01/28/2024-no central pulmonary emboli, bilateral lower lobe consolidations left greater than right likely representing atelectasis and pneumonia
Echocardiogram 11/23/2024-EF 58%, normal diastolic function, mild mitral regurgitation
Post�bronchodilator FVC: 69% / 2.04 L via spirometry on 12/12/2020; postbronchodilator FVC: 42% predicted (1.18 L) with TLC 124% and VC 40% predicted via PFTs from 03/07/2022 (through [facility]). She did have difficulty following instructions per
solar thermal technician during this test.
ABG 01/30/24-30 3/84/7.52-decrease minute ventilation-rate decreased to 12
VBG 01/31/24-40 6/124/7.4
VBG 02/01/24-38/180/7.48-pulse oximetry does not correlate and routinely underestimates PaO2
ABG 01/29/24-40 8/183/7 0.4-100% saturation on ABG and only 93% saturation on peripheral monitor
ABG 12/25/2024--55/88/7.39
Total time spent today was 39 minutes for this encounter. Time includes reviewing laboratory test/imaging results, reviewing pertinent medical records, obtaining and reviewing medical history, performing an appropriate exam, ordering medications,
tests and procedures. Time also includes documentation of this encounter, coordinating patient care and communicating with other healthcare professionals. Total time does not include separately billed tests performed on this date of service.
Subjective Data
-
Date of Service:
Date of Service: December 29, 2024
Chief Complaint: Pulmonary Follow Up
Subjective:
Patient seen this morning. Afebrile overnight. Sitting in chair no acute distress. Heart rate 81, saturating 93% on 4 L/min.
Review of Systems
General: Other (Unobtainable given patient's clinical status)
Objective Data
Data Reviewed
Vital Signs / I&O / Oxygen:
Vital Signs
Temp Pulse Resp BP Pulse Ox
98.3 F 85 18 139/82 94
12/29/24 19:11 12/29/24 16:00 12/29/24 15:47 12/29/24 16:00 12/29/24 16:00
Intake and Output
12/28/24 12/29/24 12/30/24
06:59 06:59 06:59
Intake Total 1640 / 1640 360 / 360 1200 / 1200
Output Total 1450 / 1450 450 / 450 1000 / 1000
Balance 190 / 190 -90 / -90 200 / 200
SaO2 [NIV (Non Invasive 97
Ventilation)]
SaO2 94
Nasal Cannula flow liters per 4
minute
Physical Exam
General: Respiratory Distress (negative), Comfortable, Chills (negative) and Good Appetite
HEENT: Normocephalic, Anicteric and Other (Thick neck)
Cardiovascular: S1-S2 and Peripheral Edema (negative)
Respiratory: Wheeze (negative), Crackles (Bibasilar), Rhonchi (negative), Non-Labored Respirations and Stridor (negative)
GI: Soft, Distended (Abdominal obesity), Non Tender and Normal Bowel Sounds
Neurology: Awake, Alert and Tremors (negative)
Skin: Warm, Dry, Cyanosis (negative) and Jaundice (negative)
Labs/Micro/Reports
Lab Data
12/29/24 05:35
12/29/24 05:35
Microbiology
12/25/24 00:28 Blood/Venous Blood Culture - Preliminary
No Growth in 4 days- Final report to follow
12/25/24 00:25 Blood/Venous Blood Culture - Preliminary
No Growth in 4 days- Final report to follow
[2024-12-29] MEDS: NOVOLOG FLEXPEN-MODERATE RESISTANCE 3 UNITS SC ×2 (12:05→16:49)
[2024-12-29 12:14] LABS: Glucose - Point of Care 203 mg/dl (70-99)
--- NOTE | 2024-12-29 12:30 | PTCARENOTE ---
Reassessed the patient, Additional Bowel Regimen added, downgraded to Telemetry status, no other changes from previous assessments.
[2024-12-29] MEDS: MIRALAX 17 GRAMS PO (12:34)
--- NOTE | 2024-12-29 13:12 | W.PN.HOSP.TC ---
Today's Communication/Plan
-
Monitor vital signs and see plan
Wean oxygen as tolerated
BiPAP to be used nightly and while sleeping per pulmonary
Continue with antibiotic, steroid
Continue with diuresis
Transfer to telemetry
PT
Assessment / Plan
Assessment / Plan
64-year-old non-smoking female with a history of:
Schizophrenia.
Bipolar.
Borderline personality disorder
Diabetes.
Hypertension.
Hypothyroid.
Morbid obesity.
CIELO/obesity hypoventilation suspected
Chronic hypercapnia-pCO2 45-55
History of mild restrictive lung disease
(post�bronchodilator FVC: 69% / 2.04 L via spirometry on 12/12/[id number]
Mild aortic stenosis
Anemia.
GERD.
Chronic heart failure preserved EF.
Appendectomy.
Cholecystectomy.
Rectal prolapse.
Right arm surgery self lacerations.
presented with hacking cough with progressive hypoxemia
Initial assessment was:
Acute hypoxemic respiratory failure due to bilateral pneumonia
Bibasilar pneumonia-aspiration risk
COPD/asthma with acute suiunbeyxstu-xln-fihala
Acute on chronic Heart failure preserved EF
Hyperglycemia
Lactic acidosis
Acute hypoxic respiratory failure likely secondary to pneumonia and COPD/asthma exacerbation
- history of chronic hypoxia on oxygen through nasal cannula 2 L at care home
- RR called on 12/25 AM for resp distress
Required high flow and NIV at 1 point. Now back on nasal cannula.
- Patient was started on IV diuretics
- Already getting antibiotic for possible pneumonia
- Pulmonology following
cw NC
cw BIPAP nighttly and when napping per pulmonary
Continue to wean off O2 as tolerated
Bibasilar Pneumonia - improving
Sepsis - POA
- Patient presents with fever, tachycardia, tachypnea and CXR findings consistent with pneumonia.
- COVID / Flu negative in the ED.
- Abx for pneumonia.
- Speech cleared for IDDSI 6 diet
- Follow for clinical improvement.
COPD with Acute Exacerbation secondary to the above, with Chronic Hypoxemic Respiratory Failure
- Diffuse wheezing appreciated on initial exam.
Now on p.o. prednisone, taper per pulmonary
- Nebs ATC and PRN.
- Follow for clinical improvement.
Acute on chronic HFpEF
- On IV diuretics. follow weight/cr. Likely can go back on PO diuretics soon
- Follow I/Os, daily weights, etc.
Echo 11/23 with EF 58%
Benign Hypertension
- Currently with low normal BP.
- Hold usual antihypertensive medications acutely.
DM-II
- Stable. Continue basal : bolus insulin regimen.
- Follow glucose and cover with SSI as needed.
- A1C was 7.5 % last month.
Bipolar / Schizophrenia
- Stable. Continue usual psychotropic med regimen.
Hypothyroidism
- Continue usual T4 supplementation.
Obesity due to excess calories, with CIELO on CPAP
- Affects all aspects of care.
- Encourage healthy diet and increased activity with goal of weight loss.
- Continue nightly PAP therapy.
DVT Prophylaxis: Lovenox
Code Status: Full
General: Morbidly Obese
HEENT:on NC
Respiratory: Negative Wheezes
Cardiac: Regular Rhythm and S1/S2; Negative Tachycardic
GI: Soft, Nontender and Nondistended
Musculoskeletal: No Edema
Neuro: Awake, Alert and No Motor Deficits
Psych: Calm
I spent a total of 52 minutes with the patient or on the floor. More than 50% of this time involved counseling and coordination of care.
Anticipated Discharge: 24 - 48 hours
Subjective/Interval History
-
Date of Service: December 29, 2024
denies pain
Objective Data
-
Labs:
Laboratory Results
12/29/24
05:35
WBC 7.2
Hgb 12.5
Hct 37.8
Plt Count 265
Sodium 138
Potassium 4.4
Chloride 102
Carbon Dioxide 34 H
BUN 39 H
Creatinine 0.8
Glucose 128 H
Calcium 9.3
Vital Signs:
Vital Signs
Temp Pulse Resp BP Pulse Ox
98.4 F 86 20 137/75 92
12/29/24 07:22 12/29/24 11:29 12/29/24 11:29 12/29/24 08:26 12/29/24 11:29
I&O
12/28/24 12/29/24 12/30/24
06:59 06:59 06:59
Intake Total 1640 / 1640 360 / 360 720 / 720
Output Total 1450 / 1450 450 / 450 1000 / 1000
Balance 190 / 190 -90 / -90 -280 / -280
--- NOTE | 2024-12-29 15:05 | CM ---
Wean O2, continue diuresing with IV/Lasix, IV/Rocephin, Transfer to telemetry when bed available. Discharge POC: Therapy rec for HH PT/OT. Spoke with Mirian Tavarez Supervisor Finishing Room [phone] @ [facility]. They use [facility]. Will send referral for [facility]
for RN, PT/OT services.
[2024-12-29 16:45] LABS: Glucose - Point of Care 245 mg/dl (70-99)
[2024-12-29] MEDS: LOVENOX 40 MG SC (17:08)
--- NOTE | 2024-12-29 20:30 | PTCARENOTE ---
Assumed care. Patient received lying in bed, awake and alert watching TV. She currently denies Pain. MARY'S IGLOO. 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 S1S2 regular with positive murmur. SR with BBB and occasional PVC on CM. BBS diminished t/o
with fine crackles noted left base. Sats well on 3L/nc. Purewick catheter in place with clear yellow urine. Oral Care. Partial cares with partial linen change. Takes po meds and fluids without incident. Aspiration precautions. Bed in low and locked
position, bed alarm on, call azevedo within reach. Repositioned every 2 hours.
[2024-12-29] MEDS: DEPAKOTE ER (24 HR RELEASE) 1000 MG PO (20:45)
[2024-12-29] MEDS: MIRALAX PO (20:45)
[2024-12-29] MEDS: COLACE PO (20:45)
[2024-12-29] MEDS: LIPITOR 20 MG PO (20:47)
[2024-12-29] MEDS: MELATONIN 5 MG PO (20:48)
[2024-12-29] MEDS: KLONOPIN 0.5 MG PO (20:48)
[2024-12-29] MEDS: ZYPREXA 5 MG PO (20:48)
[2024-12-29] MEDS: ZYPREXA 10 MG PO (20:49)
[2024-12-29] MEDS: KLONOPIN 1 MG PO (20:49)
--- NOTE | 2024-12-29 21:00 | PTCARENOTE ---
Placed on Bipap per RT with 2L oxygen bleed in.
[2024-12-29 21:34] LABS: Glucose - Point of Care 215 mg/dl (70-99)
[2024-12-30] VITALS (9 sets, daily range): BP systolic 98–151; BP diastolic 68–76; PULSE 2–90; BMI 36.5
[2024-12-30 06:20] LABS: Hematocrit 39.8 % (37.0-47.0); Hemoglobin 13.4 g/dL (12.0-16.0); Mean Corp Hgb Conc. 33.7 g/dL (33.0-37.0); Mean Corpuscular Volume 107.3 fL (81.0-99.0); Platelet Count 246 10^3/uL (130-400); Red Cell Dist. Width 13.2 % (11.5-14.5)
[2024-12-30 06:44] LABS: Estimated Creatinine Clearance 82 ml/min; eGFR > 60.00
[2024-12-30 06:58] LABS: Blood Urea Nitrogen 32 mg/dl (7-17); Calcium 9.2 mg/dl (8.4-10.2); Carbon Dioxide 32 mmol/L (22-30); Chloride 101 mmol/L (98-107); Glucose 127 mg/dl (70-99); Potassium 4.4 mmol/L (3.5-5.1); Sodium 141 mmol/L (135-145)
[2024-12-30] MEDS: DUONEB 3 ML INH ×4 (07:22→19:40)
--- NOTE | 2024-12-30 07:26 | PTCARENOTE ---
Report given verbally to oncoming shift, Gerry DIAZ. Questions answered.
--- NOTE | 2024-12-30 08:40 | PTCARENOTE ---
Received pt side lying. Breakfast is at the bedside. Placed on 3 liters nasal cannula. She is hard of hearing, very pleasant and took morning medications without difficulty. Lungs diminished throughout. +pulses w/+1 pedal edema. Obese, with BSX4.
Good appetite. Purwick in place. Emptied 200ml's clear yellow urine prior to Lasix administration. Pt was informed of the plan of care to be possibly transferred to another unit today. She verbalized her understanding. Safe environment maintained.
Will continue to monitor.
[2024-12-30] MEDS: VIBRAMYCIN 100 MG PO ×2 (08:46→19:47)
[2024-12-30] MEDS: THEO DUR 150 MG PO ×2 (08:46→19:47)
[2024-12-30] MEDS: PROZAC 20 MG PO (08:47)
[2024-12-30] MEDS: DELTASONE 30 MG PO (08:47)
[2024-12-30] MEDS: ZYLOPRIM 300 MG PO (08:47)
[2024-12-30] MEDS: MUCINEX 600 MG PO ×2 (08:47→19:48)
[2024-12-30] MEDS: PROTONIX 40 MG PO (08:47)
[2024-12-30] MEDS: FARXIGA 10 MG PO (08:47)
[2024-12-30] MEDS: ZETIA 10 MG PO (08:47)
[2024-12-30] MEDS: SYNTHROID 100 MCG PO (08:48)
[2024-12-30] MEDS: NOVOLOG FLEXPEN 10 UNITS SC ×3 (08:48→17:20)
[2024-12-30] MEDS: NOVOLOG FLEXPEN-MODERATE RESISTANCE SC (08:48)
[2024-12-30] MEDS: LASIX 40 MG IV (08:49)
[2024-12-30] MEDS: MIRALAX 17 GRAMS PO ×2 (08:49→19:48)
[2024-12-30] MEDS: COLACE 100 MG PO ×2 (08:52→19:48)
[2024-12-30] MEDS: LANTUS 0.2 UNITS SC (08:53)
[2024-12-30 08:59] LABS: Glucose - Point of Care 135 mg/dl (70-99)
--- NOTE | 2024-12-30 09:26 | TRANSFER ---
Attempted to call report for the Rn taking the pt into room 411-2. No RN was assigned at the time of my call.
--- NOTE | 2024-12-30 09:40 | W.PN.PUL3 ---
Today's Communication / Plan
-
Overall, patient is improving as she was on high flow nasal cannula 100% FiO2, 55 L/min alternating with the V60, and is now back to her home dose of 2L/min
Continue with BiPAP with sleep while occasional trending VBG to assure pH + pCO2 remained stable
Slow prednisone taper - starting 20mg daily tomorrow, wean down by 10mg every 4th day until off
Increase activity as tolerated
PT/OT
Continue theophylline, which was initially being held due to her tenuous respiratory status
Mucolytics
Broad-spectrum antibiotics
IV Lasix; trend BNP; replete K>4, Mg>2 - -> proBNP has markedly improved - -> volume status has improved so be careful giving IV Lasix much longer otherwise she has risk of becoming too dry - trend sCr and serum HCO3 - believe she would be ok to
transition back to her home lasix in next 1-2 days
Follow-up infectious workup and check sputum culture if she can produce a decent sample
No additional recommendations at this time. Pulmonary service will now sign off. Please reconsult if there are any additional questions/concerns, or if patient's respiratory status deteriorates.
Assessment
-
64-year-old non-smoking female with a history of schizophrenia, diabetes, asthma recently discharged from the hospital for respiratory issues discharged on 2 L of oxygen and CPAP at night presented with hacking cough with progressive hypoxemia and
pulmonary consulted for hypoxemia 12/25/2024
Acute hypoxemic respiratory failure due to bilateral pneumonia
Bibasilar pneumonia-aspiration risk
COPD/asthma with acute [id number]
Acute on chronic Heart failure preserved EF
DM type II c/b hyperglycemia - improved (A1C: 7.5 on 11/19/2024)
Lactic acidosis � resolved as of 12/25
Conditions present prior to admission:
Schizophrenia.
Bipolar.
Borderline personality disorder
Diabetes.
Hypertension.
Hypothyroid.
Morbid obesity.
CIELO/obesity hypoventilation suspected
Chronic hypercapnia-pCO2 45-55
History of mild restrictive lung disease (post�bronchodilator FVC: 69% / 2.04 L via spirometry on 12/12/20202883-[id number]
Mild aortic stenosis
Anemia.
GERD.
Chronic heart failure preserved EF.
Appendectomy. Cholecystectomy. Rectal prolapse. Right arm surgery self lacerations.
Plan
Respiratory decompensation with chronic hypoxemia and mild chronic hypercapnia due to pneumonia and asthma exacerbation along with volume overload
Patient had repeat blood gas on AM of - showing fully compensated chronic hypercapnia with pH 7.40, pCO2 60
Continue weaning down supplemental oxygen as tolerated while keeping SpO2 >88% (she is on 2 L/min chronically - and she is back to this dose and breathing comfortably)
BiPAP with sleep and prn during the day
Occasionally check VBG to assure pH and pCO2 remain stable
Patient is a full code and has been intubated in the past
DC'd IV steroids, transitioned to prednisone 30 mg daily -continue to wean as she clinically improves - tomorrow will start prednisone 20 mg daily and continue to wean down by 10 mg every fourth day until off
Responded well to Lasix 40 mg IV x 2 on 12/25. Pedal edema essentially resolved, continue 40 mg IV daily, BNP noted to be elevated - continue to trend
Mucolytics with Mucinex
DuoNebs
Theophylline-chronic medication
Aspiration precautions
Follow CXR, ultimately with repeat in 4 to 6 weeks to assure her pneumonia improves
Await cultures
Sputum culture pending (not collected yet)
Blood cultures shows NGTD (collected 12/25)
Influenza negative
Ceftriaxone and doxycycline empirically - would complete 7 days total then stop, assuming she continues to clinically improve and remains afebrile for 48 hrs before stopping ABx
Monitor renal function, electrolytes, intake/output, lower extremity edema and weight
Replace electrolytes as needed with K>4, Mg>2, dale while getting IV lasix
DVT prophylaxis-on Lovenox
GI prophylaxis- pantoprazole (home med)
Early mobilization as tolerated
The patient was last seen by Dr. Davis in the office 12/12/20-subsequently she followed up with [facility] as our office did not accept [place] [facility]
No additional recommendations at this time. Pulmonary service will now sign off. Thank you for allowing us to be involved in the care of this patient. Please reconsult if there are any additional questions/concerns, or if patient's respiratory
status deteriorates.
Diagnostic data:
CXR 11/22/24-Similar appearance of the basilar patchy airspace opacities, more pronounced on the right, which may represent pneumonia or pneumonitis.
Chest x-ray 12/25/2024-right basilar pneumonia
CT chest 01/21/24-multiple pulmonary nodules stable dating back to 02/06/23-over 10 nodules, less than [address] chest 01/28/2024-no central pulmonary emboli, bilateral lower lobe consolidations left greater than right likely representing atelectasis and pneumonia
Echocardiogram 11/23/2024-EF 58%, normal diastolic function, mild mitral regurgitation
Post�bronchodilator FVC: 69% / 2.04 L via spirometry on 12/12/2020; postbronchodilator FVC: 42% predicted (1.18 L) with TLC 124% and VC 40% predicted via PFTs from 03/07/2022 (through [facility]). She did have difficulty following instructions per
natural gas technician during this test.
ABG 01/30/24-30 3/84/7.52-decrease minute ventilation-rate decreased to 12
VBG 01/31/24-40 6/124/7.4
VBG 02/01/24-38/180/7.48-pulse oximetry does not correlate and routinely underestimates PaO2
ABG 01/29/24-40 8/183/7 0.4-100% saturation on ABG and only 93% saturation on peripheral monitor
ABG 12/25/2024--55/88/7.39
Total time spent today was 36 minutes for this encounter. Time includes reviewing laboratory test/imaging results, reviewing pertinent medical records, obtaining and reviewing medical history, performing an appropriate exam, ordering medications,
tests and procedures. Time also includes documentation of this encounter, coordinating patient care and communicating with other healthcare professionals. Total time does not include separately billed tests performed on this date of service.
Subjective Data
-
Date of Service:
Date of Service: December 30, 2024
Chief Complaint: Pulmonary Follow Up
Subjective:
Patient seen and evaluated today at bedside. Wore BiPAP overnight on 14/6 cmH2O bled with 4 L/min. Afebrile overnight.
Review of Systems
General: Other (Unobtainable given patient's clinical status)
Objective Data
Data Reviewed
Vital Signs / I&O / Oxygen:
Vital Signs
Temp Pulse Resp BP Pulse Ox
97.3 F 81 18 118/66 93
12/30/24 08:40 12/30/24 08:49 12/30/24 07:24 12/30/24 08:49 12/30/24 08:40
Intake and Output
12/29/24 12/30/24 12/31/24
06:59 06:59 06:59
Intake Total 360 / 360 1320 / 1320 360 / 360
Output Total 450 / 450 1000 / 1000 200 / 200
Balance -90 / -90 320 / 320 160 / 160
SaO2 [NIV (Non Invasive 97
Ventilation)]
SaO2 93
Nasal Cannula flow liters per 3
minute
Physical Exam
General: Respiratory Distress (negative), Comfortable, Chills (negative) and Good Appetite
HEENT: Normocephalic, Anicteric and Other (Thick neck)
Cardiovascular: S1-S2 and Peripheral Edema (negative)
Respiratory: Wheeze (negative), Crackles (Bibasilar), Rhonchi (negative), Non-Labored Respirations and Stridor (negative)
GI: Soft, Distended (Abdominal obesity), Non Tender and Normal Bowel Sounds
Neurology: Awake, Alert and Tremors (negative)
Skin: Warm, Dry, Cyanosis (negative) and Jaundice (negative)
Labs/Micro/Reports
Lab Data
12/30/24 06:03
12/30/24 06:03
Microbiology
12/25/24 00:28 Blood/Venous Blood Culture - Final
No Growth - Final Report
12/25/24 00:25 Blood/Venous Blood Culture - Final
No Growth - Final Report
--- NOTE | 2024-12-30 10:53 | TRANSFER ---
Report given to Bartolo DIAZ for pt going into room 411-2. Pt to be transferred via W/C & O2 3 liters nasal cannula.
[2024-12-30 12:21] LABS: Glucose - Point of Care 155 mg/dl (70-99)
--- NOTE | 2024-12-30 12:36 | VNURNOTE ---
Chart reviewed. Patient well known to [facility]; [facility]N services were recently MD'ed. PARTS COUNTERPERSON had 02 at [facility]. [facility] referral accepted in [facility]. Will continue to monitor hospitalization, liaison remains available.
[2024-12-30] MEDS: NOVOLOG FLEXPEN-MODERATE RESISTANCE 1 UNITS SC (12:51)
--- NOTE | 2024-12-30 12:57 | CM ---
Patient transferred to Room 411-2. Remains on IV/Lasix and IV/Rocephin. Slow Prednisone taper, Wean O2, currently at 3-4 L. Discharge POC: Therapy rec for PT/OT. [facility] has accepted for RN, PT/OT services.
--- NOTE | 2024-12-30 14:01 | W.PN.HOSP.TC ---
Today's Communication/Plan
-
Monitor vital signs and see plan
Continue with IV diuresis today
Continue antibiotic
Continue oxygenation
Hopeful DC in next 24 hours
Assessment / Plan
Assessment / Plan
64-year-old non-smoking female with a history of:
Schizophrenia.
Bipolar.
Borderline personality disorder
Diabetes.
Hypertension.
Hypothyroid.
Morbid obesity.
CIELO/obesity hypoventilation suspected
Chronic hypercapnia-pCO2 45-55
History of mild restrictive lung disease
(post�bronchodilator FVC: 69% / 2.04 L via spirometry on 12/12/[id number]
Mild aortic stenosis
Anemia.
GERD.
Chronic heart failure preserved EF.
Appendectomy.
Cholecystectomy.
Rectal prolapse.
Right arm surgery self lacerations.
presented with hacking cough with progressive hypoxemia
Initial assessment was:
Acute hypoxemic respiratory failure due to bilateral pneumonia
Bibasilar pneumonia-aspiration risk
COPD/asthma with acute hddiqknkqkjg-dho-rzieed
Acute on chronic Heart failure preserved EF
Hyperglycemia
Lactic acidosis
Acute hypoxic respiratory failure likely secondary to pneumonia and COPD/asthma exacerbation
- history of chronic hypoxia on oxygen through nasal cannula 2 L at long term
- RR called on 12/25 AM for resp distress
Required high flow and NIV at one point. Now back on nasal cannula.
- Patient was started on IV diuretics
- Already getting antibiotic for possible pneumonia
- Pulmonology following
cw NC
cw BIPAP nightly and when napping per pulmonary
Continue to wean off O2 as tolerated
Bibasilar Pneumonia - improving
Sepsis - POA
- Patient presents with fever, tachycardia, tachypnea and CXR findings consistent with pneumonia.
- COVID / Flu negative in the ED.
- Abx for pneumonia.
- Speech cleared for IDDSI 6 diet
- Follow for clinical improvement.
COPD with Acute Exacerbation secondary to the above, with Chronic Hypoxemic Respiratory Failure
- Diffuse wheezing appreciated on initial exam.
Now on p.o. prednisone, taper per pulmonary
- Nebs ATC and PRN.
- Follow for clinical improvement.
Acute on chronic HFpEF
- On IV diuretics. follow weight/cr. Likely can go back on PO diuretics soon
- Follow I/Os, daily weights, etc.
Echo 11/23 with EF 58%
Benign Hypertension
- Currently with low normal BP.
- Hold usual antihypertensive medications acutely.
DM-II
- Stable. Continue basal : bolus insulin regimen.
- Follow glucose and cover with SSI as needed.
- A1C was 7.5 % last month.
Bipolar / Schizophrenia
- Stable. Continue usual psychotropic med regimen.
Hypothyroidism
- Continue usual T4 supplementation.
Obesity due to excess calories, with CIELO on CPAP
- Affects all aspects of care.
- Encourage healthy diet and increased activity with goal of weight loss.
- Continue nightly PAP therapy.
DVT Prophylaxis: Lovenox
Code Status: Full
General: Morbidly Obese
HEENT:on NC
Respiratory: Negative Wheezes
Cardiac: Regular Rhythm and S1/S2; Negative Tachycardic
GI: Soft, Nontender and Nondistended
Musculoskeletal: No Edema
Neuro: Awake, Alert and No Motor Deficits
Psych: Calm
I spent a total of 51 minutes with the patient or on the floor. More than 50% of this time involved counseling and coordination of care.
Anticipated Discharge: Within 24 hours
Subjective/Interval History
-
Date of Service: December 30, 2024
No pain
Objective Data
-
Labs:
Laboratory Results
12/30/24
06:03
WBC 8.6
Hgb 13.4
Hct 39.8
Plt Count 246
Sodium 141
Potassium 4.4
Chloride 101
Carbon Dioxide 32 H
BUN 32 H
Creatinine 0.7
Glucose 127 H
Calcium 9.2
Vital Signs:
Vital Signs
Temp Pulse Resp BP Pulse Ox
97.2 F 85 18 98/68 94
12/30/24 11:20 12/30/24 11:40 12/30/24 11:40 12/30/24 11:20 12/30/24 11:40
I&O
12/29/24 12/30/24 12/31/24
06:59 06:59 06:59
Intake Total 360 / 360 1320 / 1320 360 / 360
Output Total 450 / 450 1000 / 1000 900 / 900
Balance -90 / -90 320 / 320 -540 / -540
[2024-12-30] MEDS: TYLENOL 650 MG PO (16:37)
[2024-12-30 17:09] LABS: Glucose - Point of Care 241 mg/dl (70-99)
[2024-12-30] MEDS: NOVOLOG FLEXPEN-MODERATE RESISTANCE 3 UNITS SC (17:20)
[2024-12-30] MEDS: LOVENOX 40 MG SC (18:05)
[2024-12-30] MEDS: KLONOPIN 0.5 MG PO (19:47)
[2024-12-30] MEDS: MELATONIN 5 MG PO (19:47)
[2024-12-30] MEDS: ZYPREXA 10 MG PO (19:47)
[2024-12-30] MEDS: DEPAKOTE ER (24 HR RELEASE) 1000 MG PO (19:47)
[2024-12-30] MEDS: KLONOPIN 1 MG PO (19:48)
[2024-12-30] MEDS: ZYPREXA 5 MG PO (19:48)
[2024-12-30] MEDS: LIPITOR 20 MG PO (19:48)
[2024-12-30 21:32] LABS: Glucose - Point of Care 237 mg/dl (70-99)
[2024-12-30] MEDS: ROCEPHIN 1000 MG IV (23:17)
[2024-12-30] MEDS: STERILE WATER FOR INJECTION 10 ML IV (23:17)
[2024-12-31] VITALS (9 sets, daily range): BP systolic 118–142; BP diastolic 66–88; PULSE 2–90; O2SAT 98; BMI 35.4
[2024-12-31] MEDS: SYNTHROID 100 MCG PO (05:07)
[2024-12-31 07:01] LABS: Glucose - Point of Care 125 mg/dl (70-99)
[2024-12-31] MEDS: DUONEB 3 ML INH ×4 (07:18→19:32)
[2024-12-31] MEDS: NOVOLOG FLEXPEN-MODERATE RESISTANCE SC (07:26)
[2024-12-31] MEDS: MUCINEX 600 MG PO ×2 (08:41→21:54)
[2024-12-31] MEDS: LANTUS 0.2 UNITS SC (08:41)
[2024-12-31] MEDS: NOVOLOG FLEXPEN 10 UNITS SC ×3 (08:41→17:36)
[2024-12-31] MEDS: VIBRAMYCIN 100 MG PO ×2 (08:42→21:54)
[2024-12-31] MEDS: THEO DUR 150 MG PO ×2 (08:42→21:54)
[2024-12-31] MEDS: DELTASONE 20 MG PO (08:42)
[2024-12-31] MEDS: FARXIGA 10 MG PO (08:43)
[2024-12-31] MEDS: PROTONIX 40 MG PO (08:43)
[2024-12-31] MEDS: ZYLOPRIM 300 MG PO (08:43)
[2024-12-31] MEDS: ZETIA 10 MG PO (08:43)
[2024-12-31] MEDS: PROZAC 20 MG PO (08:43)
[2024-12-31] MEDS: MIRALAX 17 GRAMS PO ×2 (08:44→21:55)
[2024-12-31] MEDS: COLACE 100 MG PO ×2 (08:44→21:54)
[2024-12-31 10:13] LABS: Hematocrit 43.2 % (37.0-47.0); Hemoglobin 14.1 g/dL (12.0-16.0); Mean Corp Hgb Conc. 32.6 g/dL (33.0-37.0); Mean Corpuscular Volume 107.7 fL (81.0-99.0); Platelet Count 282 10^3/uL (130-400); Red Cell Dist. Width 13.4 % (11.5-14.5)
[2024-12-31 11:08] LABS: Blood Urea Nitrogen 37 mg/dl (7-17); Calcium 9.8 mg/dl (8.4-10.2); Carbon Dioxide 33 mmol/L (22-30); Chloride 98 mmol/L (98-107); Estimated Creatinine Clearance 70 ml/min; Glucose 163 mg/dl (70-99); Potassium 4.6 mmol/L (3.5-5.1); Sodium 138 mmol/L (135-145); eGFR > 60.00
[2024-12-31] MEDS: LASIX 40 MG IV (11:29)
[2024-12-31 11:48] LABS: Glucose - Point of Care 152 mg/dl (70-99)
[2024-12-31] MEDS: NOVOLOG FLEXPEN-MODERATE RESISTANCE 1 UNITS SC ×2 (12:23→17:35)
--- NOTE | 2024-12-31 12:46 | W.PN.HOSP.TC ---
Today's Communication/Plan
-
Monitor vitals
See plan
Continue with IV Lasix today, hopeful transition to p.o. tomorrow
Continue with prednisone
Continue with breathing treatments
Continue antibiotic
Assessment / Plan
Assessment / Plan
64-year-old non-smoking female with a history of:
Schizophrenia.
Bipolar.
Borderline personality disorder
Diabetes.
Hypertension.
Hypothyroid.
Morbid obesity.
CIELO/obesity hypoventilation suspected
Chronic hypercapnia-pCO2 45-55
History of mild restrictive lung disease
(post�bronchodilator FVC: 69% / 2.04 L via spirometry on 12/12/20203279-[id number]
Mild aortic stenosis
Anemia.
GERD.
Chronic heart failure preserved EF.
Appendectomy.
Cholecystectomy.
Rectal prolapse.
Right arm surgery self lacerations.
presented with hacking cough with progressive hypoxemia
Initial assessment was:
Acute hypoxemic respiratory failure due to bilateral pneumonia
Bibasilar pneumonia-aspiration risk
COPD/asthma with acute [id number]
Acute on chronic Heart failure preserved EF
Hyperglycemia
Lactic acidosis
Acute hypoxic respiratory failure likely secondary to pneumonia and COPD/asthma exacerbation
- history of chronic hypoxia on oxygen through [facility]
- RR called on 12/25 AM for resp distress
Required high flow and NIV at one point. Now back on nasal cannula.
- Patient was started on IV diuretics
- Already getting antibiotic for possible pneumonia; finished CFTX, finishing Doxy 12/31
- Pulmonology following
cw NC
cw BIPAP nightly and when napping per pulmonary
Continue to wean off O2 as tolerated
Bibasilar Pneumonia - improving
Sepsis - POA
- Patient presents with fever, tachycardia, tachypnea and CXR findings consistent with pneumonia.
- COVID / Flu negative in the ED.
- Abx for pneumonia.
- Speech cleared for IDDSI 6 diet
- Follow for clinical improvement.
COPD with Acute Exacerbation secondary to the above, with Chronic Hypoxemic Respiratory Failure
- Diffuse wheezing appreciated on initial exam.
Now on p.o. prednisone, taper per pulmonary; starting 20mg daily, wean down by 10mg every 4th day until off
- Nebs ATC and PRN.
- Follow for clinical improvement.
Acute on chronic HFpEF
- On IV diuretics. follow weight/cr. Likely can go back on PO diuretics soon
- Follow I/Os, daily weights, etc.
Echo 11/23 with EF 58%
Benign Hypertension
- Currently with low normal BP.
- Hold usual antihypertensive medications acutely.
DM-II
- Stable. Continue basal : bolus insulin regimen.
- Follow glucose and cover with SSI as needed.
- A1C was 7.5 % last month.
Bipolar / Schizophrenia
- Stable. Continue usual psychotropic med regimen.
Hypothyroidism
- Continue usual T4 supplementation.
Obesity due to excess calories, with CIELO on CPAP
- Affects all aspects of care.
- Encourage healthy diet and increased activity with goal of weight loss.
- Continue nightly PAP therapy.
DVT Prophylaxis: Lovenox
Code Status: Full
General: Morbidly Obese
HEENT:on NC
Respiratory: Negative Wheezes
Cardiac: Regular Rhythm and S1/S2; Negative Tachycardic
GI: Soft, Nontender and Nondistended
Musculoskeletal: No Edema
Neuro: Awake, Alert and No Motor Deficits
Psych: Calm
I spent a total of 52 minutes with the patient or on the floor. More than 50% of this time involved counseling and coordination of care.
Anticipated Discharge: > 48 hours
Subjective/Interval History
-
Date of Service: December 31, 2024
denies pain
Objective Data
-
Labs:
Laboratory Results
12/31/24
09:14
WBC 11.0 H
Hgb 14.1
Hct 43.2
Plt Count 282
Sodium 138
Potassium 4.6
Chloride 98
Carbon Dioxide 33 H
BUN 37 H
Creatinine 0.8
Glucose 163 H
Calcium 9.8
Vital Signs:
Vital Signs
Temp Pulse Resp BP Pulse Ox
98.2 F 87 12 142/70 94
12/31/24 11:00 12/31/24 11:00 12/31/24 11:00 12/31/24 11:00 12/31/24 11:00
I&O
12/30/24 12/31/24 01/01/25
06:59 06:59 06:59
Intake Total 1320 / 1320 1280 / 1280
Output Total 1000 / 1000 1700 / 1700
Balance 320 / 320 -420 / -420
[2024-12-31 16:40] LABS: Glucose - Point of Care 187 mg/dl (70-99)
[2024-12-31] MEDS: LOVENOX 40 MG SC (17:35)
[2024-12-31 21:08] LABS: Glucose - Point of Care 178 mg/dl (70-99)
[2024-12-31] MEDS: MELATONIN 5 MG PO (21:53)
[2024-12-31] MEDS: DEPAKOTE ER (24 HR RELEASE) 1000 MG PO (21:54)
[2024-12-31] MEDS: KLONOPIN 1 MG PO (21:54)
[2024-12-31] MEDS: LIPITOR 20 MG PO (21:54)
[2024-12-31] MEDS: KLONOPIN 0.5 MG PO (21:54)
[2024-12-31] MEDS: ZYPREXA 5 MG PO (21:55)
[2024-12-31] MEDS: ZYPREXA 10 MG PO (21:55)
[2025-01-01] VITALS (7 sets, daily range): BP systolic 128–150; BP diastolic 65–89; PULSE 2–88; O2SAT 93; BMI 35.2
--- NOTE | 2025-01-01 01:52 | PTCARENOTE ---
pt turns self frequently- q2h turn schedule dc'd
[2025-01-01] MEDS: SYNTHROID 100 MCG PO (05:26)
[2025-01-01] MEDS: DUONEB 3 ML INH ×3 (07:19→16:01)
[2025-01-01 08:24] LABS: Glucose - Point of Care 140 mg/dl (70-99)
[2025-01-01 08:38] LABS: Hematocrit 42.2 % (37.0-47.0); Hemoglobin 13.6 g/dL (12.0-16.0); Mean Corp Hgb Conc. 32.2 g/dL (33.0-37.0); Mean Corpuscular Volume 109.6 fL (81.0-99.0); Platelet Count 257 10^3/uL (130-400); Red Cell Dist. Width 13.5 % (11.5-14.5)
[2025-01-01 09:03] LABS: Blood Urea Nitrogen 35 mg/dl (7-17); Calcium 9.7 mg/dl (8.4-10.2); Carbon Dioxide 34 mmol/L (22-30); Chloride 101 mmol/L (98-107); Estimated Creatinine Clearance 62 ml/min; Glucose 150 mg/dl (70-99); Potassium 3.8 mmol/L (3.5-5.1); Sodium 138 mmol/L (135-145); eGFR > 60.00
[2025-01-01] MEDS: NOVOLOG FLEXPEN-MODERATE RESISTANCE SC (09:21)
[2025-01-01] MEDS: FARXIGA 10 MG PO (09:55)
[2025-01-01] MEDS: LASIX 40 MG IV (09:55)
[2025-01-01] MEDS: COLACE 100 MG PO (09:55)
[2025-01-01] MEDS: NOVOLOG FLEXPEN 10 UNITS SC ×3 (09:55→17:05)
[2025-01-01] MEDS: DELTASONE 20 MG PO (09:55)
[2025-01-01] MEDS: MIRALAX 17 GRAMS PO (09:56)
[2025-01-01] MEDS: THEO DUR 150 MG PO (09:56)
[2025-01-01] MEDS: PROZAC 20 MG PO (09:56)
[2025-01-01] MEDS: MUCINEX 600 MG PO (09:56)
[2025-01-01] MEDS: PROTONIX 40 MG PO (09:56)
[2025-01-01] MEDS: ZYLOPRIM 300 MG PO (09:57)
[2025-01-01] MEDS: ZETIA 10 MG PO (09:57)
[2025-01-01] MEDS: LANTUS 0.2 UNITS SC (10:20)
[2025-01-01 12:41] LABS: Glucose - Point of Care 168 mg/dl (70-99)
--- NOTE | 2025-01-01 12:46 | W.PN.HOSP.TC ---
Today's Communication/Plan
-
Monitor vital signs and see plan
Transition to p.o. diuresis
Discharge today
Time of discharge 38 minutes
Assessment / Plan
Assessment / Plan
64-year-old non-smoking female with a history of:
Schizophrenia.
Bipolar.
Borderline personality disorder
Diabetes.
Hypertension.
Hypothyroid.
Morbid obesity.
CIELO/obesity hypoventilation suspected
Chronic hypercapnia-pCO2 45-55
History of mild restrictive lung disease
(post�bronchodilator FVC: 69% / 2.04 L via spirometry on 12/12/20201427-[id number]
Mild aortic stenosis
Anemia.
GERD.
Chronic heart failure preserved EF.
Appendectomy.
Cholecystectomy.
Rectal prolapse.
Right arm surgery self lacerations.
presented with hacking cough with progressive hypoxemia
Initial assessment was:
Acute hypoxemic respiratory failure due to bilateral pneumonia
Bibasilar pneumonia-aspiration risk
COPD/asthma with acute gxnvhsbhykhf-ykt-fcioti
Acute on chronic Heart failure preserved EF
Hyperglycemia
Lactic acidosis
Acute hypoxic respiratory failure likely secondary to pneumonia and COPD/asthma exacerbation
- history of chronic hypoxia on oxygen through nasal cannula [facility]
- RR called on 12/25 AM for resp distress
Required high flow and NIV at one point. Now back on nasal cannula.
- On IV diuresis, transition to p.o.
- Already getting antibiotic for possible pneumonia; finished CFTX, finishing Doxy 12/31
- Pulmonology following
cw NC
cw BIPAP nightly and when napping per pulmonary
Continue to wean off O2 as tolerated
Bibasilar Pneumonia - improving
Sepsis - POA
- Patient presents with fever, tachycardia, tachypnea and CXR findings consistent with pneumonia.
- COVID / Flu negative in the ED.
- Finished antibiotics
- Speech cleared for IDDSI 6 diet
- Follow for clinical improvement.
COPD with Acute Exacerbation secondary to the above, with Chronic Hypoxemic Respiratory Failure
- Diffuse wheezing appreciated on initial exam.
Now on p.o. prednisone, taper per pulmonary; starting 20mg daily, wean down by 10mg every 4th day until off
- Nebs ATC and PRN.
- Follow for clinical improvement.
Acute on chronic HFpEF
- On IV diuretics. follow weight/cr. Transition to p.o. diuresis
- Follow I/Os, daily weights, etc.
Echo 11/23 with EF 58%
Benign Hypertension
- Currently with low normal BP.
- Hold usual antihypertensive medications acutely.
DM-II
- Stable. Continue basal : bolus insulin regimen.
- Follow glucose and cover with SSI as needed.
- A1C was 7.5 % last month.
Bipolar / Schizophrenia
- Stable. Continue usual psychotropic med regimen.
Hypothyroidism
- Continue usual T4 supplementation.
Obesity due to excess calories, with CIELO on CPAP
- Affects all aspects of care.
- Encourage healthy diet and increased activity with goal of weight loss.
- Continue nightly PAP therapy.
DVT Prophylaxis: Lovenox
Code Status: Full
General: Morbidly Obese
HEENT:on NC
Respiratory: Negative Wheezes
Cardiac: Regular Rhythm and S1/S2
GI: Soft, Nontender and Nondistended
Musculoskeletal: No Edema
Neuro: Awake, Alert and No Motor Deficits
Psych: Calm
Anticipated Discharge: Today
Subjective/Interval History
-
Date of Service: January 01, 2025
Feeling better
Objective Data
-
Labs:
Laboratory Results
01/01/25
08:14
WBC 9.8
Hgb 13.6
Hct 42.2
Plt Count 257
Sodium 138
Potassium 3.8
Chloride 101
Carbon Dioxide 34 H
BUN 35 H
Creatinine 0.9
Glucose 150 H
Calcium 9.7
Vital Signs:
Vital Signs
Temp Pulse Resp BP Pulse Ox
98.5 F 88 20 144/78 93
01/01/25 11:44 01/01/25 11:44 01/01/25 11:44 01/01/25 11:44 01/01/25 11:44
I&O
12/31/24 01/01/25 01/02/25
06:59 06:59 06:59
Intake Total 1280 / 1280 345 / 345
Output Total 1700 / 1700 1725 / 1725
Balance -420 / -420 -1380 / -1380
[2025-01-01] MEDS: NOVOLOG FLEXPEN-MODERATE RESISTANCE 1 UNITS SC ×2 (12:47→17:04)
--- NOTE | 2025-01-01 12:54 | W.DCSUMMARY ---
Discharge Summary
Discharge Data
Date of Admission: 12/25/24
Date of Discharge: 01/01/25
-
Pending Results: No
Hospital Course
64-year-old female with past medical history of CHF, rectal prolapse, anemia, GERD, aortic stenosis, restrictive lung disease, chronic hypercapnia, CIELO, obesity hypoventilation syndrome, morbid obesity, hypothyroidism, hypertension, diabetes,
borderline personality disorder, bipolar, schizophrenia came to the hospital with acute hypoxemic respiratory failure secondary to bilateral pneumonia which was suspected was likely secondary to possible aspiration. Patient was seen by speech
therapy who recommended soft and bite-size. Patient finished antibiotic treatment prior to discharge. Initially patient required high flow oxygen which continue to improve over time and eventually patient was able to be weaned down to her chronic
2 L nasal cannula. Patient also appeared to had COPD exacerbation and was started on steroids which was weaning on discharge. She also had acute on chronic congestive heart failure exacerbation and was initially treated with IV diuresis which were
later transitioned to oral upon discharge. Patient was also seen by PT who recommended home health. Once patient symptoms continue to improve, she was then discharged home with instructions to follow-up with all her physicians outpatient.
Discharge Plan
-
Patient Disposition: Home with Home Care
Discharge Diagnosis/Procedures: Acute hypoxemic respiratory failure
Pneumonia
COPD/asthma exacerbation
Acute on chronic congestive heart failure exacerbation
Diet: Other diet
Additional Diets: Soft and bite-size
Activity: As tolerated
Driving Restrictions: Not until seen by your Dr
Bathing Restrictions: None
Referrals:
Shimon Cleary DO [Family Provider, Family Practice] - in less than 1 week
Michael Davis MD [Active, Pulmonary Medicine]
Prescriptions:
New
polyethylene glycol 3350 17 gram Powder In Packet
17 g PO BID Qty: 0 0RF
prednisone 10 mg Tablet
See Rx Instructions .ROUTE .COMPLEX Qty: 9 0RF
Rx Instructions:
Take By Mouth:
20 mg daily x3 days, 10 mg daily x3 days.
Continued
metformin 1,000 MG tablet
1,000 mg PO BID
allopurinol 300 MG tablet
300 mg PO DAILY
cholecalciferol (vitamin D3) 1,000 UNITS tablet
1,000 units PO DAILY
acetaminophen 325 MG tablet
650 mg PO Q6HPRN PRN (Reason: back pain)
olanzapine [Zyprexa] 10 mg Tablet
15 mg PO HS
Apidra SoloStar U-100 Insulin 100 unit/mL Insulin Pen
8 unit SC DAILY
furosemide 40 MG tablet
40 mg PO DAILY
benzonatate 100 mg Capsule
100 mg PO TIDPRN PRN (Reason: COUGH)
ezetimibe [Zetia] 10 mg Tablet
10 mg PO DAILY
Baqsimi 3 mg/actuation [place],Non-Aerosol
3 mg INTRANASAL DAILYPRN PRN (Reason: severe hypoglycemia )
docusate sodium 100 mg Capsule
100 mg PO BID
guaifenesin [Mucinex] 600 mg Tablet Extended Release 12hr
600 mg PO BID
albuterol sulfate 2.5 mg /3 mL (0.083 %) Solution For Nebulization
2.5 mg INHALATION R Q6HPRN PRN (Reason: sob)
lorazepam 2 mg Tablet
2 mg PO Q8HPRN PRN (Reason: anxeity)
benzoyl peroxide 5 % Cleanser
1 applic TOPICAL DAILY
clonazepam 1 mg tablet
1.5 mg PO HS
olanzapine 5 mg Tablet
5 mg PO [id number] PRN (Reason: Agitation)
pantoprazole 40 mg Tablet,Delayed Release (Dr/Ec)
40 mg PO DAILY
theophylline 300 mg Capsule,Extended Release 24hr
300 mg PO DAILY
ibuprofen [Advil] 200 mg Tablet
600 mg PO Q8HPRN PRN (Reason: severe pain)
atorvastatin [Lipitor] 20 mg Tablet
20 mg PO HS
therapeutic multivitamin Tablet
1 tab PO DAILY
levothyroxine [Synthroid] 100 mcg Tablet
100 mcg PO DAILY
divalproex 500 mg Tablet Extended Release 24 Hr
1,000 mg PO HS
gabapentin 100 mg Capsule
100 mg PO TIDPRN PRN (Reason: mild pain)
Apidra SoloStar U-100 Insulin 100 unit/mL Insulin Pen
9 sliding scale dose SC BID@1200,1600
dapagliflozin propanediol [Farxiga] 10 mg Tablet
10 mg PO DAILY
furosemide [Lasix] 20 mg tablet
40 mg PO DAILYPRN PRN (Reason: 6 hours aftr monring dose.fluid)
melatonin 5 mg Tablet
5 mg PO HS Qty: 0 0RF
dextromethorphan-guaifenesin [Guaiasorb DM] 10-100 mg/5 mL Liquid
10 ml PO Q6HPRN PRN (Reason: cough)
magnesium hydroxide [Milk of Magnesia] 400 mg/5 mL Suspension
2,400 mg PO DAILYPRN PRN (Reason: constipation)
fluoxetine 20 mg Tablet
20 mg PO DAILY
amlodipine 10 mg Tablet
10 mg PO DAILY Qty: 30 0RF
insulin glargine [Lantus Solostar U-100 Insulin] 100 unit/mL (3 mL) insulin pen
21 unit SC DAILY
Discharge Orders:
Discharge Patient (As Directed); Ordered 01/01/25
Ordered By: Leland Yap
Discharge Date and Time
Discharge Date/Time: 01/01/25 18:54
Print Language: SPANISH
--- NOTE | 2025-01-01 13:36 | CM ---
Chart reviewed. Patient will return to [facility] today
Spoke w/ nurse/Kat at [place], requesting for medication list to be faxed beforehand. will fax to [phone]. faxed updated clinicals as well. Kat stated patient would need transportation arranged.
[facility]
Patient will need ambulance transport, forms faxed to [phone]
Report: [phone] option 1

Plan: Return to [facility] w/ [facility]
[2025-01-01 16:47] LABS: Glucose - Point of Care 159 mg/dl (70-99)
--- NOTE | 2025-01-01 19:28 | PTCARENOTE ---
IV discontinued. Tele pack removed. Report called to Nayan Ko. Pt transported off the floor via ambulance stretcher with all belongings.
== END 2025-01-01 18:54 | disposition home health service (06) | DRG 871 ==
LOC: 4 EAST ACU 06:46
PROVIDERS: Hospitalist; Internal Medicine; Internal Medicine Critical Care Medicine; ADMITTING PHYSICIAN Hospitalist; ATTENDING PHYSICIAN Internal Medicine; CONSULT PHYSICIAN Internal Medicine Critical Care Medicine; EMERGENCY PHYSICIAN Student in an Organized Health Care Education/Training Program; FAMILY PHYSICIAN Family Medicine
DX: A41.9 Sepsis, unspecified organism (principal); I50.33 Acute on chronic diastolic (congestive) heart failure; J18.9 Pneumonia, unspecified organism; J96.21 Acute and chronic respiratory failure with hypoxia; J44.1 Chronic obstructive pulmonary disease with (acute) exacerbation; J45.901 Unspecified asthma with (acute) exacerbation; J44.0 Chronic obstructive pulmonary disease with (acute) lower respiratory infection; E87.20 Acidosis, unspecified; E66.2 Morbid (severe) obesity with alveolar hypoventilation; Z87.01 Personal history of pneumonia (recurrent); F25.9 Schizoaffective disorder, unspecified; F31.9 Bipolar disorder, unspecified; E11.649 Type 2 diabetes mellitus with hypoglycemia without coma; E11.65 Type 2 diabetes mellitus with hyperglycemia; I11.0 Hypertensive heart disease with heart failure; E03.9 Hypothyroidism, unspecified; Z68.35 Body mass index [BMI] 35.0-35.9, adult; F60.3 Borderline personality disorder; Z79.4 Long term (current) use of insulin; Z79.899 Other long term (current) drug therapy; Z11.52 Encounter for screening for COVID-19
CPT/HCPCS: 36600; 71045; 71046; 80048; 80053; 82805; 82962; 83605; 83735; 83880; 84100; 85025; 85027; 85610; 85730; 87040; 87070; 87502; 87811; 92526; 92610; 93005; 94640; 94660; 94667; 97110; 97116; 97163; 97166; 97530; 97535

== ENCOUNTER 2025-02-03 18:01 | Emergency (ER) | payer OTHER, SELFPAY ==
[2025-02-03 18:03] VITALS: BP 174/120
[2025-02-03 19:44] LABS: Glucose - Point of Care 199 mg/dl (70-99)
--- NOTE | 2025-02-03 20:12 | ED.GENMED ---
History of Present Illness
General
Chief Complaint: Crisis Evaluation
Source: patient
Time Seen by Provider: 02/03/25 19:31
History of Present Illness
History of Present Illness:
65-year-old female presents to the emergency room from [facility] for evaluation of suicidal ideations. Patient tells me she became upset when the production department supervisor visited to her house that did not take her first. She believes she was scheduled be the
first patient. However she was the last patient to be seen. This made her very frustrated. She went back to her room where she refused to put on her oxygen. She ate 7 donuts at snack time stating she did this to make her sugar go high.
Currently the patient states that she has calm down. She is no longer upset. She does not feel suicidal. She has been seen by crisis and cleared. Patient has no medical complaints.
Past History
Past History
ED Past Medical History: Asthma, CHF, COPD, HTN, Hypercholesterolemia, IDDM, Hypothyroidism, Psychiatric (Schizoaffective disorder, borderline personality disorder, major depressive disorder, suicide attempt) and Other (SBO,)
ED Past Surgical History: Appendectomy and Cholecystectomy
Social History
Tobacco: Non-smoker
Alcohol: None
Drug: None
Personal: Single
Living: other (fdc)
Employment: Not employed
Family History
Family History: Unable to obtain
Phy Exam
Physical Exam
Physical Exam:
General: Awake, Alert, Oriented X3. No acute distress. Noted dyskinesia
Vitals: unremarkable
Head: Atraumatic
Eyes: Pupils equal, EOMI
Throat: Airway intact, no exudates
Neck: Trachea midline
Lungs: Clear and equal b/l
Heart: Regular rate, no murmurs
Neuro: Nonfocal
Skin: Warm, dry, no rash
Extremities: pulses equal b/l, no edema
Course
Orders/Labs/Results
Orders:
Orders
02/03/25 18:12
Crisis Consult Urgent
Reason for Consult: SI
Crisis Consult Urgent
Reason for Consult: brought in by medics from [facility] for SI
Comment: pt stated to caregivers she wants to
02/03/25 18:19
1:1 Observation - Suicide/ Violent Behavior As Directed
02/03/25 18:20
Restraints - Non Violent As Directed
Justification-Patient:: 2-Protective Intervention
Restraint Type-: Soft Limb-L&R Wrist/4rail
Apply From (date): 02/03/25
Apply from (time): 18:20
Remove (date): 02/04/25
Remove (time): 23:59
Abnormal Lab Results
02/03/25
19:43
POC Glucose 199 H mg/dl
(70-99)
Vital Signs
Initial and Last Documented VS:
Initial Vital Signs
Temp Pulse Resp BP Pulse Ox
99 F 108 15 174/120 94
02/03/25 18:03 02/03/25 18:03 02/03/25 18:03 02/03/25 18:03 02/03/25 18:03
Last Documented Vital Signs
Temp Pulse Resp BP Pulse Ox
99 F 108 15 174/120 94
02/03/25 18:03 02/03/25 18:03 02/03/25 18:03 02/03/25 18:03 02/03/25 20:14
MDM/Problems Addressed
Differential Diagnosis Includes:
Depression, manipulative behavior, suicidal ideations
MDM/Problems Addressed:
Patient no longer suicidal. Her Accu-Chek is not significantly elevated despite her 7 donuts. No further intervention required here. Stable for discharge back to her facility.
*Pulse Oximetry
SaO2: 94
Oxygen Mode of Delivery: Room air
Patient hypoxic: no
*Critical Care Note
Total Time (30-74mins, 75-104mins- exclusive of procedures): Not Applicable
ED Attending Note
-
Portions of this chart may have been created with voice recognition software.� Occasional wrong word or��sound alike� substitutions may have occurred due to the inherent limitations of voice recognition software.
Discharge Plan
Departure
Patient Disposition: [facility]dc/SNF
Date of Disposition: 02/03/25
Time of Disposition: 20:12
Condition: Good
Discharge Problem:
Depression
Prescriptions:
No Action
metformin 1,000 MG tablet
1,000 mg PO BID
allopurinol 300 MG tablet
300 mg PO DAILY
cholecalciferol (vitamin D3) 1,000 UNITS tablet
1,000 units PO DAILY
acetaminophen 325 MG tablet
650 mg PO Q6HPRN PRN (Reason: back pain)
olanzapine [Zyprexa] 10 mg Tablet
15 mg PO HS
Apidra SoloStar U-100 Insulin 100 unit/mL Insulin Pen
8 unit SC DAILY
furosemide 40 MG tablet
40 mg PO DAILY
benzonatate 100 mg Capsule
100 mg PO TIDPRN PRN (Reason: COUGH)
ezetimibe [Zetia] 10 mg Tablet
10 mg PO DAILY
Baqsimi 3 mg/actuation [place],Non-Aerosol
3 mg INTRANASAL DAILYPRN PRN (Reason: severe hypoglycemia )
docusate sodium 100 mg Capsule
100 mg PO BID
guaifenesin [Mucinex] 600 mg Tablet Extended Release 12hr
600 mg PO BID
albuterol sulfate 2.5 mg /3 mL (0.083 %) Solution For Nebulization
2.5 mg INHALATION R Q6HPRN PRN (Reason: sob)
lorazepam 2 mg Tablet
2 mg PO Q8HPRN PRN (Reason: anxeity)
benzoyl peroxide 5 % Cleanser
1 applic TOPICAL DAILY
clonazepam 1 mg tablet
1.5 mg PO HS
olanzapine 5 mg Tablet
5 mg PO [id number] PRN (Reason: Agitation)
pantoprazole 40 mg Tablet,Delayed Release (Dr/Ec)
40 mg PO DAILY
theophylline 300 mg Capsule,Extended Release 24hr
300 mg PO DAILY
ibuprofen [Advil] 200 mg Tablet
600 mg PO Q8HPRN PRN (Reason: severe pain)
atorvastatin [Lipitor] 20 mg Tablet
20 mg PO HS
therapeutic multivitamin Tablet
1 tab PO DAILY
levothyroxine [Synthroid] 100 mcg Tablet
100 mcg PO DAILY
divalproex 500 mg Tablet Extended Release 24 Hr
1,000 mg PO HS
gabapentin 100 mg Capsule
100 mg PO TIDPRN PRN (Reason: mild pain)
Apidra SoloStar U-100 Insulin 100 unit/mL Insulin Pen
9 sliding scale dose SC BID@1200,1600
dapagliflozin propanediol [Farxiga] 10 mg Tablet
10 mg PO DAILY
furosemide [Lasix] 20 mg tablet
40 mg PO DAILYPRN PRN (Reason: 6 hours aftr monring dose.fluid)
melatonin 5 mg Tablet
5 mg PO HS Qty: 0 0RF
dextromethorphan-guaifenesin [Guaiasorb DM] 10-100 mg/5 mL Liquid
10 ml PO Q6HPRN PRN (Reason: cough)
magnesium hydroxide [Milk of Magnesia] 400 mg/5 mL Suspension
2,400 mg PO DAILYPRN PRN (Reason: constipation)
fluoxetine 20 mg Tablet
20 mg PO DAILY
amlodipine 10 mg Tablet
10 mg PO DAILY Qty: 30 0RF
insulin glargine [Lantus Solostar U-100 Insulin] 100 unit/mL (3 mL) insulin pen
21 unit SC DAILY
polyethylene glycol 3350 17 gram Powder In Packet
17 g PO BID Qty: 0 0RF
prednisone 10 mg Tablet
See Rx Instructions .ROUTE .COMPLEX Qty: 9 0RF
Rx Instructions:
Take By Mouth:
20 mg daily x3 days, 10 mg daily x3 days.
Referrals:
Shimon Cleary DO [Family Provider, Family Practice]
Interventions
Interventions:
*Risk Screen - Suicide Last Done: 02/03/25 18:17
*General Assessment Last Done: 02/03/25 18:03
*Neglect/Abuse Screening Last Done: 02/03/25 18:03
*ED- Fall Risk Assessment Last Done: 02/03/25 20:22
*ED COVID-19 Vaccine History Last Done: 02/03/25 18:03
*ED Influenza Vaccine History Last Done: 02/03/25 18:03
*Nursing Disposition Last Done: 02/03/25 20:22
ED-Psychological Assessment Last Done: 02/03/25 18:17
Discharge Date and Time
Discharge Date/Time: 02/03/25 20:24
Print Language: MALTESE
== END 2025-02-03 20:24 ==
LOC: EMR 18:01
PROVIDERS: EMERGENCY PHYSICIAN Emergency Medicine; FAMILY PHYSICIAN Family Medicine
DX: F32.A Depression, unspecified (principal); E03.9 Hypothyroidism, unspecified; E11.9 Type 2 diabetes mellitus without complications; E78.00 Pure hypercholesterolemia, unspecified; I11.0 Hypertensive heart disease with heart failure; I50.9 Heart failure, unspecified; Z91.51 Personal history of suicidal behavior
CPT/HCPCS: 99283; 82962